=== PATIENT | female | born 1950 | race Caucasian/White ===

== ENCOUNTER → 2016-09-18 | Outpatient (CLI) | payer OTHER ==
[~2016-09-18] MED LIST: ALBINS INH; ASPI81TA28 PO; ATOR-24 PO; CYNI1000 IM; DICL-201 PO; FRRS300 PO; GABA-113 PO; GLIM4TAB PO; HYDR-5688 PO; LEVO1TAB35 PO; LOSA100T33 PO; MCRK/10 PO; METF-384; METF1TAB53 PO; NORT75CA2 PO; NRN/300 PO; NRV/5 PO; PRLSR20 PO; SULF800T23 PO; VLT/75 PO; VTMD1000 PO
--- NOTE | 2016-09-19 13:03 | MAMMOGRAPHY REPORT ---
BILATERAL DIGITAL SCREENING MAMMOGRAM WITH CAD: 09/18/2016 CLINICAL HISTORY: Routine screening. Patient has no complaints. TECHNIQUE: Current study was also evaluated with a Computer Aided Detection (CAD) system. Bilatera l CC and MLO views were obtained. COMPARISON: Comparison is made to exams dated: 09/06/2015 mammogram, 08/31/2014 mammogram, 08/25/2013 ma mmogram, 08/19/2012 mammogram, 08/07/2011 mammogram, and 08/01/2010 mammogram - [facility]. BREAST COMPOSITION: The tissue of both breasts is almost entirely fatty. FINDINGS: No suspicious masses, calcifications, or areas of architectural distortion are noted in e ither breast. There has been no significant interval change compared to prior exams. Scattered bilat eral benign-appearing calcifications are not significantly changed. IMPRESSION: ACR BI-RADS CATEGORY 2: BENIGN There is no mammographic evidence of malignancy. A 1 year screening mammogram is recommended. The p atient will receive written notification of the results. Approximately 10% of breast cancers are not detected with mammography. A negative mammographic repor t should not delay biopsy if a clinically suggestive mass is present. Gail Ortez M.D. ah/:09/19/2016 07:39:02 Outboard Motorboat Operator: Maite KLEIN(R)(M), [facility] letter sent: Normal 1/2 BI-RADS Code: ACR BI-RADS Category 2: Benign
== END | disposition home or self-care (01) ==
LOC: C.MAMM 17:10
PROVIDERS: ATTEND Nurse Practitioner Family
DX: Z12.31 Encounter for screening mammogram for malignant neoplasm of breast (principal)

== ENCOUNTER 2016-09-26 22:18 | Observation (INO) | payer OTHER ==
[~2016-09-26] VITALS: Ht 160 cm; Wt 99.2 kg
[~2016-09-26 22:18] MED LIST changes: -ALBINS INH; -CYNI1000 IM; -FRRS300 PO; -GABA-113 PO; -HYDR-5688 PO; -LEVO1TAB35 PO; -METF-384; -NRV/5 PO; -SULF800T23 PO; -VLT/75 PO
--- NOTE | 2016-09-26 22:44 | EMERGENCY ROOM VISIT NOTE ---
History Report prepared by Tay: Heber Ruby Under the Supervision of: Dr. Tarun Babin D.O. First contact with patient: 22:35 Chief Complaint: SHORTNESS OF BREATH Stated Complaint: SOB Nursing Triage Summary: Pt presents with sob for a couple weeks- month, worse since last night. Worse with exertion. Lightheaded. Cough with green/yellow sputum. History of Present Illness The patient is a 66 year old female who presents to the Emergency Room with complaints of persistent shortness of breath for the past several weeks. The shortness of breath is worse with exertion, including walking short distances. The patient also has a cough and has had increased leg swelling this week. She denies chest pain or tightness. The patient usually sleeps on a recliner, and feels more short of breath when she is leaning back on the recliner. She feels better when she is sitting up. The patient denies any history of CHF or COPD. She does have a history of pneumonia. She denies cardiac history. The patient is not a smoker. Source of History: patient Onset: several weeks ago Position: other (respiratory) Quality: other (shortness of breath) Timing: other (persistent) Modifying Factors (Worsening): exertion, other (leaning back) Modifying Factors (Relieving): other (sitting up) Associated Symptoms: + cough, No chest pain Review of Systems See HPI for pertinent positives and negatives. A total of ten systems were reviewed and were otherwise negative. Past Medical & Surgical Medical Problems: (1) DIAB W NEURO MANIFEST, TYPE II OR UNSPEC TYPE, NOT UNCNTRLD (2) Diabetic peripheral neuropathy associated with type 2 diabetes mellitus (3) SCHMIDT (dyspnea on exertion) (4) Exertional dyspnea (5) Fatty liver (6) HX-VENOUS THROMBOSIS&EMBOLISM (7) Hyperlipidemia (8) HYPERLIPIDEMIA NEC/NOS (9) HYPERTENSION NOS (10) Kidney stone (11) Left arm pain (12) Pneumonia (13) Sleep apnea, obstructive Surgical Problems: (1) History of appendectomy (2) History of herniorrhaphy (3) Previous section Family History Heart disease Social History Smoking Status: Never Smoker Alcohol Use: none Drug Use: none Marital Status: Housing Status: lives with family Occupation Status: employed Current/Historical Medications Scheduled Amlodipine Besylate (Amlodipine Besylate), 5 MG PO DAILY Aspirin (Aspirin Ec), 81 MG PO QAM Atorvastatin (Lipitor), 40 MG PO QAM Cholecalciferol (Vitamin D3), 1,000 UNITS PO QPM Diclofenac Sod (Diclofenac Sodium Dr), 75 MG PO BID Gabapentin (Neurontin), 300 MG PO QPM Gabapentin (Neurontin), 900 MG PO HS Glimepiride (Amaryl), 4 MG PO BID Losartan Potassium & Hydrochlo (Losartan Potassium/Hydroc), 0.5 TABLET PO QAM Metformin Hcl (Glucophage Ext Rel), 1,000 MG PO DAILY Nortriptyline Hcl (Pamelor), 75 MG PO HS Omeprazole (Prilosec), 20 MG PO QAM Potassium Chloride (K-Tabs), 1 TAB PO DAILY Allergies Coded Allergies: Cefuroxime (Verified Adverse Reaction, Mild, upset stomach, 09/26/16) Physical Exam Vital Signs Date Time Temp Pulse Resp B/P Pulse Ox O2 Delivery O2 Flow Rate FiO2 09/27/16 02:41 83 22 97 Nasal Cannula 2.0 09/27/16 02:31 141/81 09/27/16 02:11 88 26 98 Nasal Cannula 2.0 09/27/16 02:06 83 22 97 09/27/16 02:01 123/80 09/27/16 01:36 87 23 97 09/27/16 01:31 131/84 09/27/16 01:12 84 28 98 09/27/16 01:01 128/73 09/27/16 00:42 84 27 95 09/27/16 00:37 86 24 118/70 96 09/26/16 23:24 94 09/26/16 22:44 Nasal Cannula 2.0 09/26/16 22:39 94 Room Air 09/26/16 22:38 99 24 140/67 94 Room Air 09/26/16 22:28 37.1 107 18 159/79 93 Room Air Physical Exam GENERAL: Awake, alert, well-appearing, in no distress HENT: Normocephalic, atraumatic. Oropharynx unremarkable. EYES: Normal conjunctiva. Sclera non-icteric. NECK: Supple. No nuchal rigidity. FROM. No JVD. RESPIRATORY: Crackles in the lungs bilaterally. CARDIAC: Tachycardic, normal rhythm. Extremities warm and well perfused. Pulses equal. ABDOMEN: Soft, non-distended. No tenderness to palpation. No rebound or guarding. No masses. RECTAL: Deferred. MUSCULOSKELETAL: Chest examination reveals no tenderness. The back is symmetrical on inspection without obvious abnormality. There is no CVA tenderness to palpation. No joint edema. LOWER EXTREMITIES: Calves are equal size bilaterally and non-tender. Lower extremity edema noted. No discoloration. NEURO: Normal sensorium. No sensory or motor deficits noted. SKIN: No rash or jaundice noted. Medical Decision & Procedures ER Provider Diagnostic Interpretation: X-ray: Per my interpretation. Chest One View Portable: Negative for infiltrate. CT: Radiology results as stated below per my review and radiologist interpretation CTA CHEST: Comparison 05/17/15. No evidence for PE. Right lung infiltrate. Suggest follow up to resolution. Some of the infiltrate has a nodular configuration. There are some tiny stable nodules, for example in the subpleural right lung through infiltrate is new. Suggest follow up to resolution. Borderline nodes. Small hiatal hernia, suspected hepatic steatosis and other incidentals. Radiologist: Cain Hammond MD. Laboratory Results 09/26/16 22:55 Red Blood Count 3.80, Mean Corpuscular Volume 80.3, Mean Corpuscular Hemoglobin 24.7, Mean Corpuscular Hemoglobin Concent 30.8, Mean Platelet Volume 9.5, Neutrophils (%) (Auto) 66.7, Lymphocytes (%) (Auto) 23.9, Monocytes (%) (Auto) 7.0, Eosinophils (%) (Auto) 1.8, Basophils (%) (Auto) 0.3, Neutrophils # (Auto) 7.61, Lymphocytes # (Auto) 2.73, Monocytes # (Auto) 0.80, Eosinophils # (Auto) 0.20, Basophils # (Auto) 0.03 09/26/16 22:55 Test 09/26/16 22:55 09/26/16 23:02 09/27/16 02:50 White Blood Count 11.40 K/uL (4.8-10.8) Red Blood Count 3.80 M/uL (4.2-5.4) Hemoglobin 9.4 g/dL (12.0-16.0) Hematocrit 30.5 % (37-47) Mean Corpuscular Volume 80.3 fL (80-100) Mean Corpuscular Hemoglobin 24.7 pg (25-34) Mean Corpuscular Hemoglobin Concent 30.8 g/dl (32-36) Platelet Count 323 K/uL (130-400) Mean Platelet Volume 9.5 fL (7.4-10.4) Neutrophils (%) (Auto) 66.7 % Lymphocytes (%) (Auto) 23.9 % Monocytes (%) (Auto) 7.0 % Eosinophils (%) (Auto) 1.8 % Basophils (%) (Auto) 0.3 % Neutrophils # (Auto) 7.61 K/uL (1.4-6.5) Lymphocytes # (Auto) 2.73 K/uL (1.2-3.4) Monocytes # (Auto) 0.80 K/uL (0.11-0.59) Eosinophils # (Auto) 0.20 K/uL (0-0.5) Basophils # (Auto) 0.03 K/uL (0-0.2) RDW Standard Deviation 50.3 fL (36.4-46.3) RDW Coefficient of Variation 17.1 % (11.5-14.5) Immature Granulocyte % (Auto) 0.3 % Immature Granulocyte # (Auto) 0.03 K/uL (0.00-0.02) Nucleated RBC Absolute Count (auto) 0.03 K/uL (0-0) Nucleated Red Blood Cells % 0.2 % Anion Gap 11.0 mmol/L (3-11) Est Creatinine Clear Calc Drug Dose 58.2 ml/min Estimated GFR () 61.4 Estimated GFR (Non- 53.0 BUN/Creatinine Ratio 12.0 (10-20) Calcium Level 8.9 mg/dl (8.5-10.1) Total Bilirubin 0.5 mg/dl (0.2-1) Aspartate Amino Transf (AST/SGOT) 20 U/L (15-37) Alanine Aminotransferase (ALT/SGPT) 29 U/L (12-78) Alkaline Phosphatase 108 U/L (45-117) Total Protein 7.4 gm/dl (6.4-8.2) Albumin 3.1 gm/dl (3.4-5.0) Globulin 4.3 gm/dl (2.5-4.0) Albumin/Globulin Ratio 0.7 (0.9-2) Bedside Troponin I 0.000 ng/ml (0-0.045) ME-Dyu-H-Type Natriuretic Peptide 31 pg/ml (0-900) Urine Color YELLOW Urine Appearance CLEAR (CLEAR) Urine pH 5.5 (4.5-7.5) Urine Specific [place] > 1.045 (1.000-1.030) Urine Protein NEG (NEG) Urine Glucose (UA) NEG (NEG) Urine Ketones NEG (NEG) Urine Occult Blood NEG (NEG) Urine Nitrite NEG (NEG) Urine Bilirubin NEG (NEG) Urine Urobilinogen NEG (NEG) Urine Leukocyte Esterase NEG (NEG) Laboratory results reviewed by me Medications Administered Medications (Trade) Dose Ordered Sig/Juan Route Start Time Stop Time Status Last Admin Dose Admin Levofloxacin (Levaquin / D5W) 750 mg NOW ONCE IV 09/27/16 01:15 09/27/16 01:16 DC 09/27/16 01:13 750 MG ECG Indication: SOB/dyspnea Rate (beats per minute): 97 Rhythm: sinus rhythm Findings: no acute ischemic change, left axis deviation, other (Left anterior hemiblock) ED Course 2238: The patient was evaluated in room C4. A complete history and physical exam was performed. 0115: Levaquin / D5w 750 mg IV. 0115: The [place] [facility] was paged. 0220: The patient is resting comfortably on oxygen, no respiratory distress. 0250: Discussed the case with Dr. Figueroa, [facility]. The patient will be evaluated. Medical Decision Differential diagnosis includes CHF, pneumonia, cardiac ischemia, bronchitis, pulmonary edema, anemia. Consults Time Called: 114 Consulting Physician: Discussed the case with Dr. Figueroa [facility] Returned Call: 0250 Impression Primary Impression: Pneumonia Scribe Attestation The scribe's documentation has been prepared under my direction and personally reviewed by me in its entirety. I confirm that the note above accurately reflects all work, treatment, procedures, and medical decision making performed by me. Departure Information Dispostion Being Evaluated By Hospitalist Referrals Elda Ng (PCP) Patient Instructions My [facility] Problem Qualifiers Primary Impression: Pneumonia Pneumonia type: due to unspecified organism Laterality: right Lung location : lower lobe of lung Qualified Codes: J18.1 - Lobar pneumonia, unspecified organism
[2016-09-26 23:14] LABS: BASO % 0.3 %; BASO ABS # 0.03 K/uL (0-0.2); COMPLETE YES; EOS % 1.8 %; HEMATOCRIT 30.5 % (37-47); IG% 0.3 %; LYMPH % 23.9 %; LYMPH ABS # 2.73 K/uL (1.2-3.4); MEAN CELL VOLUME 80.3 fL (80-100); MEAN CORPUSCULAR HEMOGLOBIN 24.7 pg (25-34); MEAN CORPUSCULAR HGB CONC 30.8 g/dl (32-36); MEAN PLATELET VOLUME 9.5 fL (7.4-10.4); NEUT % 66.7 %; PLATELET COUNT 323 K/uL (130-400)
[2016-09-26] MEDS ORDERED: NRV/5 PO (23:21)
[2016-09-26] MEDS ORDERED: VLT/75 PO (23:23)
[2016-09-26] MEDS ORDERED: METF-384 (23:23)
[2016-09-26] MEDS ORDERED: GABA-113 PO (23:26)
[2016-09-26 23:37] LABS: CALCIUM 8.9 mg/dl (8.5-10.1); CREATININE 1.1 mg/dl (0.60-1.20); POTASSIUM 3.1 mmol/L (3.5-5.1)
[2016-09-26 23:39] LABS: ALB/GLOB RATIO 0.7 (0.9-2)
[2016-09-26] MEDS ORDERED: OPTIRAY 320 IV PRN (23:45)
[2016-09-27] VITALS (9 sets, daily range): BP systolic 122–171; BP diastolic 75–80; PULSE 56–114; TEMP 36.3–36.8; O2SAT 91–97; Ht 160 cm; Wt 99.2 kg
[2016-09-27] MEDS ORDERED: LEVAQUIN 750MG / 150ML D5W IV ONE (01:15)
[2016-09-27 03:09] LABS: URINE APPEARANCE CLEAR (CLEAR); URINE BILIRUBIN NEG (NEG); URINE COLOR YELLOW; URINE NITRITE NEG (NEG); URINE PH 5.5 (4.5-7.5); URINE SPECIFIC GRAVITY > 1.045 (1.000-1.030); UROBILINOGEN NEG (NEG)
[2016-09-27] MEDS ORDERED: ONDANSETRON INJ 2 MG/ML 2 ML VIAL IV PRN (03:15)
[2016-09-27] MEDS ORDERED: ALUMINUM/MAGNESIUM/SIMETH (MAALOX MAX) 30 ML UDC PO PRN (03:15)
[2016-09-27] MEDS ORDERED: ALBUTEROL 0.083% NEBU SOLN 3 ML VIAL INH PRN (03:15)
[2016-09-27] MEDS ORDERED: ACETAMINOPHEN 325 MG TAB PO PRN (03:15)
[2016-09-27] MEDS ORDERED: POLYETHYLENE (MIRALAX) 17 GM PACK PO PRN (03:15)
[2016-09-27] MEDS ORDERED: MAGNESIUM HYDROXIDE SUSP 30 ML UDC PO PRN (03:15)
[2016-09-27 03:16] LABS: MANUAL MICROSCOPIC REQUIRED? NO; REVIEW REQ? NO
--- NOTE | 2016-09-27 03:39 | History and Physical ---
History & Physical Date & Time of Service: Sep 27, 2016 at 03:31 Chief Complaint: SOB Primary Care Physician: Elda Ng History of Present Illness Source: patient 66 y/o F w/Hx DM 2, HTN, HPL, HERIBERTO. She states she has had a productive cough and SOB x 2 weeks which she did not address with her MD. She does not report fevers, CP or N/V. Over the past few days she has developed severe exertional dyspnea and states that she cannot effectively walk a short distance without becoming SOB and having to rest. She had tried using a nebulizer which she had from 05/16 with little effect. She was tachycardic and borderline hypoxic on arrival to the ER. A CT was obtained and revealed a R lung nodular pneumonia. Past Medical/Surgical History Medical Problems: (1) DIAB W NEURO MANIFEST, TYPE II OR UNSPEC TYPE, NOT UNCNTRLD Status: Chronic (2) Diabetic peripheral neuropathy associated with type 2 diabetes mellitus Status: Chronic (3) HX-VENOUS THROMBOSIS&EMBOLISM Status: Resolved (4) Hyperlipidemia Status: Chronic (5) HYPERLIPIDEMIA NEC/NOS Status: Chronic (6) HYPERTENSION NOS Status: Chronic (7) Kidney stone Status: Resolved (8) Sleep apnea, obstructive Status: Chronic Surgical Problems: (1) History of appendectomy Status: Resolved (2) History of herniorrhaphy Status: Resolved (3) Previous section Permanent Comment: X 3 Status: Resolved Family History Heart disease Social History Smoking Status: Never Smoker Drug Use: none Marital Status: Occupational Status: employed Immunizations History of Influenza Vaccine: Yes Influenza Vaccine Date: Mar 11, 2010 History of Tetanus Vaccine?: No History of Pneumococcal: No History of Hepatitis B Vaccine: No Multi-Drug Resistant Organisms History of MDRO: Yes Allergies Coded Allergies: Cefuroxime (Verified Adverse Reaction, Mild, upset stomach, 09/26/16) Home Medications Scheduled Amlodipine Besylate (Amlodipine Besylate), 5 MG PO DAILY Aspirin (Aspirin Ec), 81 MG PO QAM Atorvastatin (Lipitor), 40 MG PO QAM Cholecalciferol (Vitamin D3), 1,000 UNITS PO QPM Diclofenac Sod (Diclofenac Sodium Dr), 75 MG PO BID Gabapentin (Neurontin), 300 MG PO QPM Gabapentin (Neurontin), 900 MG PO HS Glimepiride (Amaryl), 4 MG PO BID Losartan Potassium & Hydrochlo (Losartan Potassium/Hydroc), 0.5 TABLET PO QAM Metformin Hcl (Glucophage Ext Rel), 1,000 MG PO DAILY Nortriptyline Hcl (Pamelor), 75 MG PO HS Omeprazole (Prilosec), 20 MG PO QAM Potassium Chloride (K-Tabs), 1 TAB PO DAILY Review of Systems Constitutional: No chills, No fever, No sweats Eyes: No eye pain, No worsening of vision ENT: No hearing loss, No nasal symptoms, No unusual epistaxis Respiratory: + cough, + dyspnea at rest, + dyspnea on exertion, + shortness of breath, + sputum Cardiovascular: No PND, No chest pain, No orthopnea Abdomen: No nausea, No pain Musculoskeletal: No joint pain Genitourinary - Female: No dysuria, No hematuria, No urinary frequency, No urinary incontinence, No urinary retention, No urinary urgency Neurologic: No memory loss, No paralysis, No weakness Psychiatric: No depression symptoms Endocrine: + fatigue Hematologic / Lymphatic: No abnormal bleeding/bruising Integumentary: No rash Allergic / Immunologic: No environmental allergies Physical Exam Vital Signs Date Time Temp Pulse Resp B/P Pulse Ox O2 Delivery O2 Flow Rate FiO2 09/27/16 02:41 83 22 97 Nasal Cannula 2.0 09/27/16 02:31 141/81 09/27/16 02:11 88 26 98 Nasal Cannula 2.0 09/27/16 02:06 83 22 97 09/27/16 02:01 123/80 09/27/16 01:36 87 23 97 09/27/16 01:31 131/84 09/27/16 01:12 84 28 98 09/27/16 01:01 128/73 09/27/16 00:42 84 27 95 09/27/16 00:37 86 24 118/70 96 09/26/16 23:24 94 09/26/16 22:44 Nasal Cannula 2.0 09/26/16 22:39 94 Room Air 09/26/16 22:38 99 24 140/67 94 Room Air 09/26/16 22:28 37.1 107 18 159/79 93 Room Air General Appearance: WD/WN, no apparent distress Head: normocephalic, atraumatic Eyes: normal inspection, PERRL, EOMI ENT: normal ENT inspection, pharynx normal Neck: supple, + pertinent finding (exam limited by habitus) Respiratory/Chest: chest non-tender, no respiratory distress, no accessory muscle use, + decreased breath sounds Cardiovascular: regular rate, rhythm, no edema, no gallop, no JVD, no murmur, normal peripheral pulses Abdomen/GI: normal bowel sounds, non tender, soft Back: normal inspection, no CVA tenderness Extremities/Musculoskelatal: normal inspection, no calf tenderness, normal capillary refill, no pedal edema, normal range of motion Neurologic/Psych: 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 II-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 nml as tested, no motor/sensory deficits, alert, normal mood/affect, normal reflexes, oriented x 3 Skin: normal color, warm/dry, no rash Diagnostics Laboratory Results Results Past 24 Hours Test 09/26/16 22:55 09/26/16 23:02 09/27/16 02:50 Range/Units White Blood Count 11.40 4.8-10.8 K/uL Red Blood Count 3.80 4.2-5.4 M/uL Hemoglobin 9.4 12.0-16.0 g/dL Hematocrit 30.5 37-47 % Mean Corpuscular Volume 80.3 80-100 fL Mean Corpuscular Hemoglobin 24.7 25-34 pg Mean Corpuscular Hemoglobin Concent 30.8 32-36 g/dl Platelet Count 323 130-400 K/uL Mean Platelet Volume 9.5 7.4-10.4 fL Neutrophils (%) (Auto) 66.7 % Lymphocytes (%) (Auto) 23.9 % Monocytes (%) (Auto) 7.0 % Eosinophils (%) (Auto) 1.8 % Basophils (%) (Auto) 0.3 % Neutrophils # (Auto) 7.61 1.4-6.5 K/uL Lymphocytes # (Auto) 2.73 1.2-3.4 K/uL Monocytes # (Auto) 0.80 0.11-0.59 K/uL Eosinophils # (Auto) 0.20 0-0.5 K/uL Basophils # (Auto) 0.03 0-0.2 K/uL RDW Standard Deviation 50.3 36.4-46.3 fL RDW Coefficient of Variation 17.1 11.5-14.5 % Immature Granulocyte % (Auto) 0.3 % Immature Granulocyte # (Auto) 0.03 0.00-0.02 K/uL Nucleated RBC Absolute Count (auto) 0.03 0-0 K/uL Nucleated Red Blood Cells % 0.2 % Sodium Level 140 136-145 mmol/L Potassium Level 3.1 3.5-5.1 mmol/L Chloride Level 102 98-107 mmol/L Carbon Dioxide Level 27 21-32 mmol/L Anion Gap 11.0 3-11 mmol/L Blood Urea Nitrogen 13 7-18 mg/dl Creatinine 1.10 0.60-1.20 mg/dl Est Creatinine Clear Calc Drug Dose 58.2 ml/min Estimated GFR () 61.4 Estimated GFR (Non- 53.0 BUN/Creatinine Ratio 12.0 10-20 Random Glucose 188 70-99 mg/dl Calcium Level 8.9 8.5-10.1 mg/dl Total Bilirubin 0.5 0.2-1 mg/dl Aspartate Amino Transf (AST/SGOT) 20 15-37 U/L Alanine Aminotransferase (ALT/SGPT) 29 12-78 U/L Alkaline Phosphatase 108 45-117 U/L Total Protein 7.4 6.4-8.2 gm/dl Albumin 3.1 3.4-5.0 gm/dl Globulin 4.3 2.5-4.0 gm/dl Albumin/Globulin Ratio 0.7 0.9-2 Bedside Troponin I 0.000 0-0.045 ng/ml ZT-Rjo-W-Type Natriuretic Peptide 31 0-900 pg/ml Urine Color YELLOW Urine Appearance CLEAR CLEAR Urine pH 5.5 4.5-7.5 Urine Specific [place] > 1.045 1.000-1.030 Urine Protein NEG NEG Urine Glucose (UA) NEG NEG Urine Ketones NEG NEG Urine Occult Blood NEG NEG Urine Nitrite NEG NEG Urine Bilirubin NEG NEG Urine Urobilinogen NEG NEG Urine Leukocyte Esterase NEG NEG Diagnostic Radiology CT: R lung nodular infiltrate EKG Sinus - L axis, LAFB - no acute ischemic changes Impression Assessment and Plan 66 y/o F w/Hx DM 2, HTN, HPL, HERIBERTO. She states she has had a productive cough and SOB x 2 weeks which she did not address with her MD. She does not report fevers, CP or N/V. Over the past few days she has developed severe exertional dyspnea and states that she cannot effectively walk a short distance without becoming SOB and having to rest. She had tried using a nebulizer which she had from 05/16 with little effect. She was tachycardic and borderline hypoxic on arrival to the ER. A CT was obtained and revealed a R lung nodular pneumonia. 1) PNM - pt will be treated with latasha Shane, 02 protocol. She does not quite meet admission criteria so that she could potentially be D/Cd later in the day if she improves clinically. 2) Severe exertional dyspnea - the pt was under the impression that there might be something wrong with her heart - her dyspnea is out of proportion to clinical findings and she has a normal PFT on record. We will request an echo. I do not believe she is exhibiting volume overload but she may have a degree of pulmonary hypertension as she has a long standing history of HERIBERTO and does not comply with BIPAP. 3) DM - placed on sliding scale 4) HypoK - replaced - HCTZ held pending repeat labs 5) HTN - cont Lisinopril 6) HLD - cont Statin Full code - heparin prophylaxis Tital time for this admit including review of labs, med, EKG, imaging - discussion with pt and ER MD - 38 min Level of Care Telemetry Resuscitation Status FULL RESUSCITATION VTE Prophylaxis VTE Risk Assessment Done? Y/N: Yes Risk Level: Moderate Given or contraindicated: Unfractionated heparin SQ
[2016-09-27] MEDS ORDERED: IV FLUIDS COMPLETED PRN (04:45)
[2016-09-27] MEDS ORDERED: MAGNESIUM SULFATE 1GM / D5W 1 GM in PREMIXED IN D5W 100 ML IV ONE (06:00)
[2016-09-27] MEDS ORDERED: POTASSIUM CHLORIDE PWD 20 MEQ PACK PO ONE (07:30)
[2016-09-27] MEDS: INSULIN ASPART 100 UNITS/ML 3 ML PEN SC SCH ×4 (07:30→21:00)
--- NOTE | 2016-09-27 07:37 | DIAGNOSTIC IMAGING REPORT ---
CHEST CTA for PULMONARY ARTERIES CT DOSE: 678.68 mGy.cm HISTORY: Short of breath. TECHNIQUE: Multiaxial CT images of the chest were performed following the intravenous administration of contrast to evaluate the pulmonary arteries. Maximal intensity projection images were also obtained. COMPARISON STUDY: Chest CTA 05/17/2015. FINDINGS: There is a normal caliber thoracic aorta with no evidence for dissection. There is no evidence for pulmonary embolus. No pleural effusions. No pneumothorax. The liver and spleen are unremarkable. Mediastinal lymph nodes have decreased in size. No left hilar lymphadenopathy. A few prominent right hilar lymph nodes which may be reactive. Hepatic steatosis. The spleen and adrenal glands are unremarkable. Patchy airspace opacity seen within the right upper lobe, right middle lobe, and right lower lobe which likely represent a pneumonia. IMPRESSION: 1. No evidence for pulmonary embolus. 2. Right lung airspace opacities which likely represent a pneumonia. Recommend follow-up to ensure resolution. Electronically signed by: Oc Rosas M.D. 09/27/2016 7:36 AM Dictated Date/Time: 09/27/2016 7:31 AM
--- NOTE | 2016-09-27 08:08 | DIAGNOSTIC IMAGING REPORT ---
CHEST ONE VIEW PORTABLE HISTORY: Short of breath. COMPARISON: None. FINDINGS: Patchy airspace opacities within the right mid to lower lung zone. Cardiac silhouette is normal in size. No pleural effusions. No pneumothorax. Low lung volumes. IMPRESSION: Patchy airspace opacities within the right mid to lower lung zone which likely represents a pneumonia. Recommend follow-up to resolution. Electronically signed by: Oc Rosas M.D. 09/27/2016 8:07 AM Dictated Date/Time: 09/27/2016 8:06 AM
[2016-09-27] MEDS: ALBUT/IPRATROP 3MG/0.5MG NEB 3 ML VIAL INH SCH ×3 (08:15→19:41)
[2016-09-27] MEDS: LOSARTAN POTASSIUM 25 MG TAB PO SCH (08:51)
[2016-09-27] MEDS: ASPIRIN 81 MG ECTAB PO SCH (08:51)
[2016-09-27] MEDS: AMLODIPINE BESYLATE 5 MG TAB PO SCH (08:52)
[2016-09-27] MEDS: PANTOprazole SOD 40 MG TAB PO SCH (08:52)
[2016-09-27] MEDS: ATORVASTATIN 40 MG TAB PO SCH (08:52)
[2016-09-27 09:09] LABS: INR 1.1 (0.9-1.1); PROTHROMBIN TIME (PATIENT) 11.9 SECONDS (9.0-12.0)
[2016-09-27] MEDS ORDERED: PERFLUTREN LIPID MICROSPHERE (DEFINITY) IV ONE (10:01)
[2016-09-27 10:54] LABS: BASO % 0.3 %; BASO ABS # 0.03 K/uL (0-0.2); COMPLETE YES; HEMATOCRIT 30.7 % (37-47); IG% 0.3 %; LYMPH % 21.9 %; LYMPH ABS # 2.01 K/uL (1.2-3.4); MEAN CELL VOLUME 80.4 fL (80-100); MEAN CORPUSCULAR HEMOGLOBIN 24.9 pg (25-34); MEAN CORPUSCULAR HGB CONC 30.9 g/dl (32-36); MEAN PLATELET VOLUME 9.2 fL (7.4-10.4); MONO % 6.8 %; NEUT % 68.7 %; PLATELET COUNT 309 K/uL (130-400); RED BLOOD COUNT 3.82 M/uL (4.2-5.4); WHITE BLOOD COUNT 9.18 K/uL (4.8-10.8)
[2016-09-27 11:23] LABS: BUN/CREATININE RATIO 11.4 (10-20); CREATININE 0.95 mg/dl (0.60-1.20); MAGNESIUM 1.8 mg/dl (1.8-2.4); POTASSIUM 3.4 mmol/L (3.5-5.1)
[2016-09-27 11:26] LABS: CALCIUM 9.3 mg/dl (8.5-10.1)
[2016-09-27 11:33] LABS: FERRITIN 20.9 ng/ml (8.0-388.0); THYROID STIMULATING HORMONE 3.94 uIu/ml (0.300-4.500)
--- NOTE | 2016-09-27 13:35 | ECHOCARDIOGRAM REPORT ---
*NOTICE TO RECEIVING [employer] This information is strictly Confidential and protected under [place] law. [place] law prohibits you from making any further disclosure of this information unless further disclosure is expressly permitted by the written consent of the person to whom it pertains or is authorized by law. A general authorization for the release of medical or other information is not sufficient for this purpose. Hospital accepts no responsibility if the information is made available to any other person, INCLUDING THE PATIENT. Interpretation Summary * Name: BRISEYDA PORTILLO Study Date: 09/27/2016 08:39 AM BP: 171/80 mmHg * Patient Location: .MS2W\S\W255\S\2 HR: 88 * : 1950 (M/d/yyyy) Gender: Female Height: 63 in * Age: 66 yrs Ethnicity: CA Weight: 219 lb * Ordering Physician: Contreras Figueroa * Referring Physician: Self, Referred * Performed By: Naila Manzo RCS * * Reason For Study: Severe Exertional Dyspnea * BSA: 2.0 m2 * -- Conclusions -- * Left ventricular systolic function is normal. * Grade I diastolic dysfunction, (abnormal relaxation pattern). * The right ventricular systolic function is normal as assessed by tricuspid annular plane systolic excursion (TAPSE) (normal >1.5 cm). Procedure Details * A complete two-dimensional transthoracic echocardiogram was performed (2D, M-mode, Doppler and color flow Doppler). * A contrast injection of Definity was performed to improve assessment of LV function. * Contrast was injected into an intravenous site in the right arm. * One vial of Definity ultrasound contrast was diluted in normal saline to a total volume of 10 ml. A total of '2' ml of solution was administered during imaging. * Lot # [id number] of Definity utilized for procedure. * Expiration date 1APR18. * The attending nurse who injected the contrast agent was Jaz Marquez RN. Left Ventricle * The left ventricle is normal in size. * There is normal left ventricular wall thickness. * Ejection Fraction = 65-70%. * Left ventricular systolic function is normal. * Grade I diastolic dysfunction, (abnormal relaxation pattern). Right Ventricle * The right ventricle is grossly normal size. * The right ventricular systolic function is normal as assessed by tricuspid annular plane systolic excursion (TAPSE) (normal >1.5 cm). Atria * The left atrial size is normal. * Right atrial size is normal. Mitral Valve * The mitral valve is grossly normal. * Significant mitral regurgitation is absent. Tricuspid Valve * The tricuspid valve is not well visualized. Aortic Valve * The aortic valve is not well visualized. * There is calcification of the left or possibly non-coronary cusp whcih is unchanged from 2015 * No hemodynamically significant valvular aortic stenosis. * There is no significant aortic regurgitation. Great Vessels * The aortic root is normal size. Pericardium/Pleural * There is no pericardial effusion. MMode 2D Measurements and Calculations IVSd 1.0 cm IVSs 1.2 cm LVIDd 4.0 cm LVIDs 2.3 cm LVPWd 1.0 cm LVPWs 1.2 cm IVS/LVPW 0.98 FS 43.3 % EDV(Teich) 71.7 ml ESV(Teich) 17.9 ml EF(Teich) 75.0 % EDV(cubed) 66.0 ml ESV(cubed) 12.0 ml EF(cubed) 81.8 % % IVS thick 21.8 % % LVPW thick 14.5 % LV mass(C)d 134.9 grams LV mass(C)dI 67.1 grams/m\S\2 LV mass(C)s 78.5 grams LV mass(C)sI 39.0 grams/m\S\2 CO(Teich) 4.6 l/min CI(Teich) 2.3 l/min/m\S\2 SV(Teich) 53.8 ml SI(Teich) 26.8 ml/m\S\2 CO(cubed) 4.6 l/min CI(cubed) 2.3 l/min/m\S\2 SV(cubed) 54.0 ml SI(cubed) 26.9 ml/m\S\2 Ao root diam 3.5 cm Ao root area 9.7 cm\S\2 ACS 1.9 cm LA dimension 3.8 cm LA/Ao 1.1 LVAd ap4 30.5 cm\S\2 LVLd ap4 8.3 cm EDV(MOD-sp4) 93.0 ml LVAs ap4 14.2 cm\S\2 LVLs ap4 6.6 cm ESV(MOD-sp4) 26.0 ml EF(MOD-sp4) 72.0 % LVAd ap2 23.7 cm\S\2 LVLd ap2 8.0 cm EDV(MOD-sp2) 60.0 ml LVAs ap2 12.1 cm\S\2 LVLs ap2 6.4 cm ESV(MOD-sp2) 20.0 ml EF(MOD-sp2) 66.7 % CO(MOD-sp4) 5.8 l/min CI(MOD-sp4) 2.9 l/min/m\S\2 SV(MOD-sp4) 67.0 ml SI(MOD-sp4) 33.3 ml/m\S\2 CO(MOD-sp2) 3.4 l/min CI(MOD-sp2) 1.7 l/min/m\S\2 SV(MOD-sp2) 40.0 ml SI(MOD-sp2) 19.9 ml/m\S\2 Doppler Measurements and Calculations MV E max lance 92.3 cm/sec MV A max lance 101.7 cm/sec MV E/A 0.91 MV P1/2t max lance 90.2 cm/sec MV P1/2t 80.3 msec MVA(P1/2t) 2.7 cm\S\2 MV dec slope 329.3 cm/sec\S\2 MV dec time 0.27 sec Ao V2 max 179.8 cm/sec Ao max PG 12.9 mmHg Ao max PG (full) 5.1 mmHg LV V1 max PG 7.8 mmHg LV V1 max 139.8 cm/sec PA V2 max 114.0 cm/sec PA max PG 5.2 mmHg
[2016-09-27] MEDS: HEPARIN SOD 5000 UNIT/0.5 ML CARP SQ SCH ×2 (14:00→21:27)
[2016-09-27] MEDS ORDERED: POTASSIUM CHLORIDE 20 MEQ TABCR PO STA (15:15)
[2016-09-27] MEDS ORDERED: CYANOCOBALAMIN 1000 MCG/ML VIAL IM ONE (18:00)
[2016-09-27] MEDS ORDERED: GABAPENTIN 300 MG CAP PO SCH (21:00)
[2016-09-27] MEDS: GABAPENTIN 300 MG CAP PO SCH (21:24)
[2016-09-27] MEDS: NORTRIPTYLINE HCL 25 MG CAP PO SCH (21:27)
--- NOTE | 2016-09-27 22:38 | Progress Note ---
Progress Note Date of Service Sep 27, 2016. Progress Note Pt admitted after midnight. Record and studies reviewed, pt seen and examined. She is already feeling much better. ECHO with grade 1 diastolic dysfunction. She is off O2 and ambulates witout O2 and POx goes to 94%. She declines any kind of CPAP but is willing to wear nocturnal O2 for her known HERIBERTO. B12 and Fe-deficient with new anemia. She is due for colonoscopy, was supposed to go this Fall. Hemoccult stool pending. No GERD sxs, no abd pain, no hematochezia, does have occasional dark stools. Potassium replaced. VSS Lungs with crackles and rhonchi in entire right lung field with wheezes as well. -continue bronchodilators, IV Levaquin -hemoccult stool and follow CBC -follow PRP and replaced KCl -continue homw meds for BP except holding HCTZ for hypokalemia -continue insulin SS for DM Heparin SQ for DVT proph Dispo-to home likely tomorrow
[2016-09-28] VITALS (10 sets, daily range): BP systolic 111–117; BP diastolic 67–76; PULSE 76–90; TEMP 36.5–36.7; O2SAT 93–97
[2016-09-28] MEDS ORDERED: LEVOFLOXACIN / D5W 750 MG in PREMIXED IN D5W 150 ML IV SCH (02:00)
[2016-09-28] MEDS: ALBUT/IPRATROP 3MG/0.5MG NEB 3 ML VIAL INH SCH ×3 (02:21→19:49)
[2016-09-28] MEDS: HEPARIN SOD 5000 UNIT/0.5 ML CARP SQ SCH ×2 (06:00→13:38)
[2016-09-28] MEDS: INSULIN ASPART 100 UNITS/ML 3 ML PEN SC SCH ×4 (06:30→20:09)
[2016-09-28 07:28] LABS: BASO % 0.5 %; BASO ABS # 0.04 K/uL (0-0.2); COMPLETE YES; EOS % 3.4 %; HEMATOCRIT 31.5 % (37-47); IG% 0.4 %; LYMPH % 34.5 %; LYMPH ABS # 2.55 K/uL (1.2-3.4); MEAN CORPUSCULAR HEMOGLOBIN 24.9 pg (25-34); MEAN CORPUSCULAR HGB CONC 30.8 g/dl (32-36); MEAN PLATELET VOLUME 9.2 fL (7.4-10.4); MONO % 8.7 %; NEUT % 52.5 %; PLATELET COUNT 328 K/uL (130-400); RED BLOOD COUNT 3.89 M/uL (4.2-5.4); WHITE BLOOD COUNT 7.39 K/uL (4.8-10.8)
[2016-09-28 08:00] LABS: ALT/SGPT 26 U/L (12-78); AST/SGOT 17 U/L (15-37); BLOOD UREA NITROGEN 14 mg/dl (7-18); BUN/CREATININE RATIO 15.4 (10-20); CALCIUM 9.2 mg/dl (8.5-10.1); CARBON DIOXIDE 29 mmol/L (21-32); CHLORIDE 104 mmol/L (98-107); CREATININE 0.89 mg/dl (0.60-1.20); GLUCOSE 161 mg/dl (70-99); MAGNESIUM 1.9 mg/dl (1.8-2.4); POTASSIUM 3.7 mmol/L (3.5-5.1); SODIUM 142 mmol/L (136-145)
[2016-09-28 08:03] LABS: ALKALINE PHOSPHATASE 101 U/L (45-117)
[2016-09-28] MEDS: LOSARTAN POTASSIUM 25 MG TAB PO SCH (08:04)
[2016-09-28] MEDS: ATORVASTATIN 40 MG TAB PO SCH (08:05)
[2016-09-28] MEDS: ASPIRIN 81 MG ECTAB PO SCH (08:05)
[2016-09-28] MEDS: AMLODIPINE BESYLATE 5 MG TAB PO SCH (08:06)
[2016-09-28] MEDS: PANTOprazole SOD 40 MG TAB PO SCH (08:06)
[2016-09-28] MEDS ORDERED: POTASSIUM CHLORIDE 10 MEQ TABCR PO SCH (09:00)
[2016-09-28] MEDS ORDERED: CYANOCOBALAMIN 1000 MCG/ML VIAL IM SCH (09:00)
[2016-09-28] MEDS ORDERED: GABAPENTIN 300 MG CAP PO SCH (17:00)
[2016-09-28] MEDS ORDERED: FRRS300 PO (20:01)
[2016-09-28] MEDS ORDERED: ALBINS INH (20:01)
[2016-09-28] MEDS ORDERED: CYNI1000 IM (20:01)
[2016-09-28] MEDS ORDERED: LEVO1TAB35 PO (20:01)
[2016-09-28] MEDS: GABAPENTIN 300 MG CAP PO SCH (20:02)
[2016-09-28] MEDS: NORTRIPTYLINE HCL 25 MG CAP PO SCH (20:03)
--- NOTE | 2016-09-28 20:05 | Discharge Instructions ---
Discharge Instructions Date of Service Sep 28, 2016. Admission Reason for Admission: Exertional Dyspnea, Pneumonia Discharge Discharge Diagnosis / Problem: Pneumonia Discharge Goals Goal(s): Improve disease control, Therapeutic intervention Activity Recommendations Activity Limitations: as noted below Exercise/Sports Limitations: gradually increase as tolerated Shower/Bathe: no limitations Driving or Machine Use: no limitations . Instructions / Follow-Up Instructions / Follow-Up You were admitted for a right sided pneumonia. You were treated with IV antibiotics and had improvement. You should finish out a course of oral antibiotics and follow up with your PCP within 1 week. You will need a repeat chest xray in 3-4 weeks to ensure your pneumonia is completely cleared up. You were also found to be both B12 and iron deficient which is causing you to be anemic. You should get B12 injections through your PCP office and start taking oral iron tablets. You should see a [employer] Super[employer] to possibly have an upper and lower endoscopy to look for a cause of your anemia. Current Hospital Diet Patient's current hospital diet: AHA Diet (Heart Healthy), Diabetes Type 2 Diet Discharge Diet Recommended Diet: AHA Diet (Heart Healthy), Diabetes Type 2 Diet Procedures Procedures Performed: Chest xray Chest CT Pending Studies Studies pending at discharge: no Laboratory Results Last 24 Hours Test 09/27/16 20:41 09/28/16 07:00 Bedside Glucose 145 mg/dl White Blood Count 7.39 K/uL Red Blood Count 3.89 M/uL Hemoglobin 9.7 g/dL Hematocrit 31.5 % Mean Corpuscular Volume 81.0 fL Mean Corpuscular Hemoglobin 24.9 pg Mean Corpuscular Hemoglobin Concent 30.8 g/dl Platelet Count 328 K/uL Mean Platelet Volume 9.2 fL Neutrophils (%) (Auto) 52.5 % Lymphocytes (%) (Auto) 34.5 % Monocytes (%) (Auto) 8.7 % Eosinophils (%) (Auto) 3.4 % Basophils (%) (Auto) 0.5 % Neutrophils # (Auto) 3.88 K/uL Lymphocytes # (Auto) 2.55 K/uL Monocytes # (Auto) 0.64 K/uL Eosinophils # (Auto) 0.25 K/uL Basophils # (Auto) 0.04 K/uL RDW Standard Deviation 51.3 fL RDW Coefficient of Variation 17.2 % Immature Granulocyte % (Auto) 0.4 % Immature Granulocyte # (Auto) 0.03 K/uL Sodium Level 142 mmol/L Potassium Level 3.7 mmol/L Chloride Level 104 mmol/L Carbon Dioxide Level 29 mmol/L Anion Gap 9.0 mmol/L Blood Urea Nitrogen 14 mg/dl Creatinine 0.89 mg/dl Est Creatinine Clear Calc Drug Dose 71.7 ml/min Estimated GFR () 79.4 Estimated GFR (Non- 68.5 BUN/Creatinine Ratio 15.4 Random Glucose 161 mg/dl Calcium Level 9.2 mg/dl Magnesium Level 1.9 mg/dl Total Bilirubin 0.4 mg/dl Direct Bilirubin < 0.1 mg/dl Aspartate Amino Transf (AST/SGOT) 17 U/L Alanine Aminotransferase (ALT/SGPT) 26 U/L Alkaline Phosphatase 101 U/L Total Protein 7.4 gm/dl Albumin 2.9 gm/dl Medical Emergencies . Who to Call and When: Medical Emergencies: If at any time you feel your situation is an emergency, please call 911 immediately. . Non-Emergent Contact Non-Emergency issues call your: Primary Care Provider Call Non-Emergent contact if: you have a fever, you have any medication questions if you have worsening shortness of breath or cough . . "Provider Documentation" section prepared by Jessica Leonard. . VTE Core Measure Inpt VTE Proph given/why not?: Unfractionated heparin SQ
--- NOTE | 2016-10-17 13:07 | Discharge Summary ---
Discharge Summary Date of Service Sep 28, 2016. Discharge Summary Admission Date: Sep 27, 2016 at 03:24 Discharge Date: Sep 28, 2016 Discharge Disposition: Home Principal Diagnosis: Community Acquired Pneumonia Problems/Secondary Diagnoses: Acute respiratory insufficiency DM type 2 HTN HL HERIBERTO Hypokalemia Chronic diastolic dysfunction B12 deficiency Fe-deficiency anemia Immunizations: Have You Had Influenza Vaccine: Yes Influenza Vaccine Date: Mar 11, 2010 History of Tetanus Vaccine?: No History of Pneumococcal: No History of Hepatitis B Vaccine: No Procedures: CHEST CTA for PULMONARY ARTERIES CT DOSE: 678.68 mGy.cm HISTORY: Short of breath. TECHNIQUE: Multiaxial CT images of the chest were performed following the intravenous administration of contrast to evaluate the pulmonary arteries. Maximal intensity projection images were also obtained. COMPARISON STUDY: Chest CTA 05/17/2015. FINDINGS: There is a normal caliber thoracic aorta with no evidence for dissection. There is no evidence for pulmonary embolus. No pleural effusions. No pneumothorax. The liver and spleen are unremarkable. Mediastinal lymph nodes have decreased in size. No left hilar lymphadenopathy. A few prominent right hilar lymph nodes which may be reactive. Hepatic steatosis. The spleen and adrenal glands are unremarkable. Patchy airspace opacity seen within the right upper lobe, right middle lobe, and right lower lobe which likely represent a pneumonia. IMPRESSION: 1. No evidence for pulmonary embolus. 2. Right lung airspace opacities which likely represent a pneumonia. Recommend follow-up to ensure resolution. CHEST ONE VIEW PORTABLE HISTORY: Short of breath. COMPARISON: None. FINDINGS: Patchy airspace opacities within the right mid to lower lung zone. Cardiac silhouette is normal in size. No pleural effusions. No pneumothorax. Low lung volumes. IMPRESSION: Patchy airspace opacities within the right mid to lower lung zone which likely represents a pneumonia. Recommend follow-up to resolution. ECHO: * Left ventricular systolic function is normal. * Grade I diastolic dysfunction, (abnormal relaxation pattern). * The right ventricular systolic function is normal as assessed by tricuspid annular plane systolic excursion (TAPSE) (normal >1.5 cm). Consultations: None Medication Reconciliation New Medications: Ferrous Sulfate (Ferrous Sulfate) 325 Mg Tab 325 MG PO BID for 30 Days Albuterol Sulf (Albuterol Sulfate) 2.5 Mg/3 Ml Nebu 2.5 MG INH Q4H PRN for sob for 30 Days Cyanocobalamin (Cyanocobalamin) 1,000 Mcg/Ml Inj 1000 MCG IM qmonth, #12 To be administered by your PCP Continued Medications: Amlodipine Besylate (Amlodipine Besylate) 5 Mg Tab 5 MG PO DAILY Aspirin (Aspirin Ec) 81 Mg Tab 81 MG PO QAM Atorvastatin (Lipitor) 40 Mg Tab 40 MG PO QAM, TAB Cholecalciferol (Vitamin D3) 1,000 Inter.unit Tab 1000 UNITS PO QPM Diclofenac Sod (Diclofenac Sodium Dr) 75 Mg Tabcr 75 MG PO BID TAKE WITH FOOD Gabapentin (Neurontin) 300 Mg Cap 300 MG PO QPM Gabapentin (Neurontin) 300 Mg Cap 900 MG PO HS Glimepiride (Amaryl) 4 Mg Tab 4 MG PO BID, TAB Losartan Potassium & Hydrochlo (Losartan Potassium/Hydroc) 1 Tab Tab 0.5 TABLET PO QAM 100MG/25MG Metformin Hcl (Glucophage Ext Rel) 1,000 Mg Tab 1000 MG PO DAILY, 1 Refill Nortriptyline Hcl (Pamelor) 75 Mg Cap 75 MG PO HS, CAP Omeprazole (Prilosec) 20 Mg Capcr 20 MG PO QAM Potassium Chloride (K-Tabs) 10 Meq Tabcr 1 TAB PO DAILY Referrals At Discharge Follow up Referrals: Physician Referral - Within 1 Week with Elda Ng Discharge Exam Doing much better, ready for discharge to home Review of Systems: Constitutional: No fever Eyes: No problem reported ENT: No problem reported Respiratory: + cough, No dyspnea on exertion, No shortness of breath Cardiovascular: No chest pain Abdomen: No nausea, No pain, No vomiting Musculoskeletal: No problem reported Genitourinary - Female: No problem reported Neurologic: No problem reported Psychiatric: No problem reported Endocrine: No problem reported Hematologic / Lymphatic: No problem reported Integumentary: No problem reported Physical Exam: General Appearance: WD/WN, no apparent distress, + obese Eyes: normal inspection, sclerae normal ENT: hearing grossly normal, pharynx normal Neck: trachea midline Respiratory/Chest: no respiratory distress, no accessory muscle use, + rhonchi (right lower and middle lung villanueva along with a few scattered exp wheezes) Cardiovascular: regular rate, rhythm, no edema, no gallop, no murmur, normal peripheral pulses Abdomen / GI: normal bowel sounds, non tender, soft, no organomegaly, no pulsatile mass Extremities: normal inspection, no calf tenderness, no pedal edema Neurologic/Psychiatric: alert, normal mood/affect, oriented x 3 Skin: normal color, warm/dry, no rash Lymphatic: no adenopathy Hospital Course 66 y/o F w/Hx DM 2, HTN, HPL, HERIBERTO. She states she has had a productive cough and SOB x 2 weeks which she did not address with her MD. She does not report fevers, CP or N/V. Over the past few days she has developed severe exertional dyspnea and states that she cannot effectively walk a short distance without becoming SOB and having to rest. She had tried using a nebulizer which she had from 05/16 with little effect. She was tachycardic and borderline hypoxic on arrival to the ER. A CT was obtained and revealed a R lung nodular pneumonia. 1) CAP - pt was treated with Levaquin, nebs, 02 and weaned off. She was doing much better by the next day and was stable for discharge to home. -finish out 10 day course of Levaquin po -continue albuterol prn at home -will need repeat Chest CT or CXR in 3-4 weeks to ensure resolution of PNA 2) Severe exertional dyspnea - the pt was under the impression that there might be something wrong with her heart - her dyspnea is out of proportion to clinical findings and she has a normal PFT on record. ECHO showed grade 1 diastolic dysfunction/Chronic diastolic CHF. She was not volume overloaded and so I believe her SCHMIDT was secondary to her PNA. Compliance with her home CPAP was strongly encouraged to prevent worsening diastolic dysfunction. 3) DMII - glucose checks here ranged from 90s-180s with one high of 217 likely secondary to stress of illness -placed on sliding scale insulin and can restart metformin at home in 24 hours as had dye load with CTA chest -f/u with PCP -restart glimepiride on dc as well 4) HypoK - replaced - HCTZ held, repeat labs normalized -consider stopping HCTZ as an outpatient if persists -continue po replacement as outpatient 5) HTN -stable -continue losartan-HCT, amlodipine 6) HLD - cont Statin 7) HERIBERTO-not compliant with CPAP here or at home- but is willing to wear nocturnal O2 for her known HERIBERTO. -f/u with PCP and explore other options for managing HERIBERTO 8) B12 and Fe-deficient with new anemia. She is due for colonoscopy, was supposed to go this Fall but this should be moved up due to anemia. Hemoccult stool pending and was not collected during hospitalization as she did not have a BM. No GERD sxs, no abd pain, no hematochezia, does have occasional dark stools. -f/u with PCP and get referral to GI for EGD/Colonoscopy if Hemeoccult positive -continue monthly B12 injections Full code - heparin prophylaxis Dispo-to home and f/u with PCP in 1 week Total Time Spent: Greater than 30 minutes This includes examination of the patient, discharge planning, medication reconciliation, and communication with other providers. Discharge Instructions Please refer to the electronic Patient Visit Report (Discharge Instructions) for additional information. Follow-Up WithPCP within 1 week Will need CXR in 3-4 weeks to ensure resolution of infiltrates Additional Copies To Elda Ng
[2017-03-21] MEDS ORDERED: HYDR-5688 PO (09:33)
[2017-03-24] MEDS ORDERED: SULF800T23 PO (13:29)
== END 2016-09-28 20:30 | disposition home or self-care (01) ==
LOC: ENRESERVDT → ENRESERVTM → C.EDB 22:19 → C.MS2W 09-27 03:24
PROVIDERS: ADMIT Internal Medicine; ATTEND Hospitalist
DX: J18.9 Pneumonia, unspecified organism (principal); E87.6 Hypokalemia; I10 Essential (primary) hypertension; G47.33 Obstructive sleep apnea (adult) (pediatric); E11.40 Type 2 diabetes mellitus with diabetic neuropathy, unspecified; E78.5 Hyperlipidemia, unspecified; R00.0 Tachycardia, unspecified; Z79.82 Long term (current) use of aspirin; Z86.718 Personal history of other venous thrombosis and embolism; Z87.442 Personal history of urinary calculi; Z90.49 Acquired absence of other specified parts of digestive tract; Z82.49 Family history of ischemic heart disease and other diseases of the circulatory system

== ENCOUNTER 2017-05-14 22:06 | Emergency (ER) | payer OTHER, MEDICARE ==
[~2017-05-14] VITALS: Ht 160 cm; Wt 92.8 kg
[~2017-05-14 22:06] MED LIST changes: +ALBINS INH; -DICL-201 PO; +GABA-113 PO; +HYDR-5688 PO; -NRN/300 PO; +NRV/5 PO; +VLT/75 PO
[2017-05-14 22:08] VITALS: TEMP 37.3; Ht 160 cm; Wt 92.8 kg
[2017-05-14] MEDS ORDERED: KETOROLAC TROMETHAMINE 30 MG/ML VIAL IV STA (22:24)
[2017-05-14] MEDS ORDERED: SODIUM CHLORIDE 0.9% 1000ML 1,000 ML IV STA (22:24)
[2017-05-14 22:36] VITALS: O2SAT 95
--- NOTE | 2017-05-14 23:03 | DIAGNOSTIC IMAGING REPORT ---
CHEST ONE VIEW PORTABLE HISTORY: 67 years-old Female EVALUATE RESPIRATORY DISTRESS.DYSPNEA acute respiratory distress COMPARISON: Portable chest radiograph 09/26/2016 TECHNIQUE: Portable AP view of the chest FINDINGS: Cardiac silhouette is mildly enlarged. Lungs are mildly hypoinflated with bronchovascular crowding. No pneumothorax, pleural effusion or overt pulmonary edema. Hazy subsegmental bibasilar opacities are present. The bones appear grossly intact. Degenerative changes of the shoulders and spine. IMPRESSION: 1. Hazy subsegmental bibasilar opacities suggest atelectasis. 2. Hypoinflation. The above report was generated using voice recognition software. It may contain grammatical, syntax or spelling errors. Electronically signed by: Brian Parrish M.D. 05/14/2017 11:01 PM Dictated Date/Time: 05/14/2017 10:59 PM
[2017-05-14 23:08] LABS: BASO % 0.5 %; BASO ABS # 0.04 K/uL (0-0.2); COMPLETE YES; EOS % 1.5 %; HEMATOCRIT 34.3 % (37-47); IG% 0.2 %; LYMPH % 15.3 %; LYMPH ABS # 1.35 K/uL (1.2-3.4); MEAN CELL VOLUME 76.9 fL (80-100); MEAN CORPUSCULAR HEMOGLOBIN 23.8 pg (25-34); MEAN CORPUSCULAR HGB CONC 30.9 g/dl (32-36); MEAN PLATELET VOLUME 10.2 fL (7.4-10.4); MONO % 9.8 %; NEUT % 72.7 %; PLATELET COUNT 291 K/uL (130-400); RED BLOOD COUNT 4.46 M/uL (4.2-5.4)
[2017-05-14] MEDS ORDERED: OSELTAMIVIR PHOSPHATE 75 MG CAP PO STA (23:09)
[2017-05-14] MEDS ORDERED: ALBUTEROL 0.083% NEBU SOLN 3 ML VIAL INH STA (23:09)
[2017-05-14 23:13] LABS: URINE APPEARANCE CLEAR (CLEAR); URINE BILIRUBIN NEG (NEG); URINE COLOR YELLOW; URINE NITRITE NEG (NEG); UROBILINOGEN NEG (NEG)
[2017-05-14 23:15] LABS: REVIEW REQ? NO
[2017-05-14] MEDS ORDERED: BENZONATATE 100MG CAP PO ONE (23:15)
[2017-05-14 23:16] LABS: MANUAL MICROSCOPIC REQUIRED? YES
[2017-05-14 23:20] LABS: INR 1.1 (0.9-1.1); PROTHROMBIN TIME (PATIENT) 11.4 SECONDS (9.0-12.0)
[2017-05-14 23:30] LABS: ALT/SGPT 31 U/L (12-78); BLOOD UREA NITROGEN 12 mg/dl (7-18); BUN/CREATININE RATIO 12.3 (10-20); CALCIUM 8.7 mg/dl (8.5-10.1); CARBON DIOXIDE 23 mmol/L (21-32); CHLORIDE 102 mmol/L (98-107); CREATININE 0.94 mg/dl (0.60-1.20); GLUCOSE 160 mg/dl (70-99); POTASSIUM 3.3 mmol/L (3.5-5.1); SODIUM 135 mmol/L (136-145)
[2017-05-14 23:34] LABS: ALB/GLOB RATIO 0.7 (0.9-2); ALKALINE PHOSPHATASE 80 U/L (45-117); AST/SGOT 25 U/L (15-37)
[2017-05-14] MEDS ORDERED: ACETAMINOPHEN 500 MG TAB PO STA (23:47)
[2017-05-14 23:54] VITALS: BP 133/73; PULSE 100; O2SAT 95
[2017-05-15] MEDS ORDERED: BENZ100C18 PO (00:04)
[2017-05-15] MEDS ORDERED: OSEL75CA12 PO (00:04)
--- NOTE | 2017-05-15 00:32 | EMERGENCY ROOM VISIT NOTE ---
History Report prepared by Tay: Yesi Hoover Under the Supervision of: Kris AlejandraO. First contact with patient: 22:17 Chief Complaint: FLU LIKE SX Stated Complaint: SOB, ACH ALL OVER History of Present Illness The patient is a 67 year old female who presents to the Emergency Room with complaints of flu-like symptoms beginning 2 days ago. The patient states that she started with a dry cough 2 days ago. She also reports having a sore throat and a headache. The patient also reports feeling achy. The patient states that she has been around sick family members who have had vomiting and diarrhea. Patient admits to diffuse body aches as well. The patient reports having the flu before but that her symptoms have never been this bad. Pt denies change in vision, fevers, chest pain, abdominal pain, shortness of breath, nausea, vomiting, diarrhea, pain with urination, and melena. Source of History: patient Onset: 2 days ago Position: other (global) Quality: other (flu-like symptoms ) Associated Symptoms: + headache, + sorethroat, + cough (dry), + weakness ( achiness), No chest pain, No SOB, No nausea, No vomiting, No abdominal pain, No diarrhea, No urinary symptoms Review of Systems See HPI for pertinent positives & negatives. A total of 10 systems reviewed and were otherwise negative. Past Medical & Surgical Medical Problems: (1) DIAB W NEURO MANIFEST, TYPE II OR UNSPEC TYPE, NOT UNCNTRLD (2) Diabetic peripheral neuropathy associated with type 2 diabetes mellitus (3) SCHMIDT (dyspnea on exertion) (4) Exertional dyspnea (5) Fatty liver (6) HX-VENOUS THROMBOSIS&EMBOLISM (7) Hyperlipidemia (8) HYPERLIPIDEMIA NEC/NOS (9) HYPERTENSION NOS (10) Kidney stone (11) Left arm pain (12) Pneumonia (13) Sleep apnea, obstructive Surgical Problems: (1) History of appendectomy (2) History of herniorrhaphy (3) Previous section Family History Heart disease Social History Smoking Status: Never Smoker Alcohol Use: none Drug Use: none Marital Status: Housing Status: lives with family Occupation Status: retired Current/Historical Medications Scheduled Amlodipine Besylate (Amlodipine Besylate), 5 MG PO DAILY Aspirin (Aspirin Ec), 81 MG PO QAM Atorvastatin (Lipitor), 40 MG PO QAM Benzonatate (Tessalon Perles), 1 CAP PO TID Cholecalciferol (Vitamin D3), 1,000 UNITS PO QPM Diclofenac Sod (Diclofenac Sodium Dr), 75 MG PO BID Gabapentin (Neurontin), 900 MG PO TID Glimepiride (Amaryl), 4 MG PO BID Hctz/Losartan (Hyzaar 12.5MG/100MG), 0.5 TABLET PO QAM Metformin Hcl (Glucophage Ext Rel), 1,000 MG PO BID Nortriptyline Hcl (Pamelor), 75 MG PO HS Omeprazole (Prilosec), 20 MG PO QAM Oseltamivir (Tamiflu), 75 MG PO BID Potassium Chloride (K-Tabs), 1 TAB PO DAILY Scheduled PRN Albuterol Sulf (Albuterol Sulfate), 2.5 MG INH Q4H PRN for sob Hydrocodone/Acetaminophen 5MG/325MG ([place] 5MG/325MG), 1 TAB PO BID PRN for Pain Allergies Coded Allergies: Cefuroxime (Verified Adverse Reaction, Mild, upset stomach, 05/14/17) Physical Exam Vital Signs Date Time Temp Pulse Resp B/P (MAP) Pulse Ox O2 Delivery O2 Flow Rate FiO2 05/14/17 23:54 100 20 133/73 95 05/14/17 22:36 95 Room Air 05/14/17 22:36 95 Room Air 05/14/17 22:08 37.3 116 20 137/81 95 Room Air Physical Exam GENERAL: Sitting up in bed, alert, disheveled, no distress, non-toxic, dry non- productive cough EYE EXAM: normal conjunctiva. PERRL and EOM's grossly intact. OROPHARYNX: no exudate, no erythema, lips, buccal mucosa, and tongue normal and mucous membranes are dry NECK: supple, no nuchal rigidity, no adenopathy, non-tender,negative Brudzinski' s sign LUNGS: Clear to auscultation. Normal chest wall mechanics HEART: tachycardic, no murmurs, S1 normal and S2 normal ABDOMEN: abdomen soft, non-tender, normo-active bowel sounds, no masses, no rebound or guarding. BACK: Back is symmetrical on inspection and there is no deformity, no midline tenderness, no CVA tenderness. SKIN: no rashes and no bruising UPPER EXTREMITIES: upper extremities are grossly normal. LOWER EXTREMITIES: No pitting edema.Calves are equal bilaterally. NEURO EXAM: Normal sensorium, cranial nerves II-XII grossly intact, normal speech, no gross weakness of arms, no gross weakness of legs. Medical Decision & Procedures ER Provider Diagnostic Interpretation: Radiology results as stated below per my review and the radiologist's interpretation: CHEST ONE VIEW PORTABLE HISTORY: 67 years-old Female EVALUATE RESPIRATORY DISTRESS.DYSPNEA acute respiratory distress COMPARISON: Portable chest radiograph 09/26/2016 TECHNIQUE: Portable AP view of the chest FINDINGS: Cardiac silhouette is mildly enlarged. Lungs are mildly hypoinflated with bronchovascular crowding. No pneumothorax, pleural effusion or overt pulmonary edema. Hazy subsegmental bibasilar opacities are present. The bones appear grossly intact. Degenerative changes of the shoulders and spine. IMPRESSION: 1. Hazy subsegmental bibasilar opacities suggest atelectasis. 2. Hypoinflation. The above report was generated using voice recognition software. It may contain grammatical, syntax or spelling errors. Electronically signed by: Brian Parrish M.D. 05/14/2017 11:01 PM Dictated Date/Time: 05/14/2017 10:59 PM Laboratory Results 05/14/17 22:50 Red Blood Count 4.46, Mean Corpuscular Volume 76.9, Mean Corpuscular Hemoglobin 23.8, Mean Corpuscular Hemoglobin Concent 30.9, Mean Platelet Volume 10.2, Neutrophils (%) (Auto) 72.7, Lymphocytes (%) (Auto) 15.3, Monocytes (%) (Auto) 9.8, Eosinophils (%) (Auto) 1.5, Basophils (%) (Auto) 0.5, Neutrophils # (Auto) 6.40, Lymphocytes # (Auto) 1.35, Monocytes # (Auto) 0.86, Eosinophils # (Auto) 0.13, Basophils # (Auto) 0.04 05/14/17 22:50 Test 05/14/17 22:30 05/14/17 22:45 05/14/17 22:50 Influenza Type A Antigen POS for Influ A (NEG) Influenza Type B Antigen Neg for Influ B (NEG) Urine Color YELLOW Urine Appearance CLEAR (CLEAR) Urine pH 7.0 (4.5-7.5) Urine Specific [place] 1.010 (1.000-1.030) Urine Protein 1+ (NEG) Urine Glucose (UA) TRACE (NEG) Urine Ketones 1+ (NEG) Urine Occult Blood TRACE (NEG) Urine Nitrite NEG (NEG) Urine Bilirubin NEG (NEG) Urine Urobilinogen NEG (NEG) Urine Leukocyte Esterase SMALL (NEG) White Blood Count 8.80 K/uL (4.8-10.8) Red Blood Count 4.46 M/uL (4.2-5.4) Hemoglobin 10.6 g/dL (12.0-16.0) Hematocrit 34.3 % (37-47) Mean Corpuscular Volume 76.9 fL (80-100) Mean Corpuscular Hemoglobin 23.8 pg (25-34) Mean Corpuscular Hemoglobin Concent 30.9 g/dl (32-36) Platelet Count 291 K/uL (130-400) Mean Platelet Volume 10.2 fL (7.4-10.4) Neutrophils (%) (Auto) 72.7 % Lymphocytes (%) (Auto) 15.3 % Monocytes (%) (Auto) 9.8 % Eosinophils (%) (Auto) 1.5 % Basophils (%) (Auto) 0.5 % Neutrophils # (Auto) 6.40 K/uL (1.4-6.5) Lymphocytes # (Auto) 1.35 K/uL (1.2-3.4) Monocytes # (Auto) 0.86 K/uL (0.11-0.59) Eosinophils # (Auto) 0.13 K/uL (0-0.5) Basophils # (Auto) 0.04 K/uL (0-0.2) RDW Standard Deviation 49.4 fL (36.4-46.3) RDW Coefficient of Variation 17.5 % (11.5-14.5) Immature Granulocyte % (Auto) 0.2 % Immature Granulocyte # (Auto) 0.02 K/uL (0.00-0.02) Prothrombin Time 11.4 SECONDS (9.0-12.0) Prothromb Time International Ratio 1.1 (0.9-1.1) Activated Partial Thromboplast Time 26.7 SECONDS (21.0-31.0) Partial Thromboplastin Ratio 1.0 Anion Gap 11.0 mmol/L (3-11) Est Creatinine Clear Calc Drug Dose 64.6 ml/min Estimated GFR () 73.8 Estimated GFR (Non- 63.7 BUN/Creatinine Ratio 12.3 (10-20) Calcium Level 8.7 mg/dl (8.5-10.1) Total Bilirubin 0.6 mg/dl (0.2-1) Aspartate Amino Transf (AST/SGOT) 25 U/L (15-37) Alanine Aminotransferase (ALT/SGPT) 31 U/L (12-78) Alkaline Phosphatase 80 U/L (45-117) Troponin I < 0.015 ng/ml (0-0.045) Total Protein 7.4 gm/dl (6.4-8.2) Albumin 3.1 gm/dl (3.4-5.0) Globulin 4.3 gm/dl (2.5-4.0) Albumin/Globulin Ratio 0.7 (0.9-2) Laboratory results per my review. Medications Administered Medications (Trade) Dose Ordered Sig/Juan Route Start Time Stop Time Status Last Admin Dose Admin Sodium Chloride 1,000 ml @ 999 mls/hr Q1H1M STAT IV 05/14/17 22:24 05/14/17 23:24 DC 05/14/17 22:24 999 MLS/HR Ketorolac Tromethamine (Toradol Inj) 15 mg NOW STAT IV 05/14/17 22:24 05/14/17 22:25 DC 05/14/17 22:24 15 MG Oseltamivir Phosphate (Tamiflu Cap) 75 mg NOW STAT PO 05/14/17 23:09 05/14/17 23:10 DC 05/14/17 23:18 75 MG Albuterol Sulfate (Ventolin 0.083% 2.5MG/3ML Neb) 2.5 mg NOW STAT INH 05/14/17 23:09 05/14/17 23:10 DC 05/14/17 23:17 2.5 MG Benzonatate (Tessalon Perles Cap) 100 mg NOW ONCE PO 05/14/17 23:15 05/14/17 23:16 DC 05/14/17 23:18 100 MG ECG Indication: weakness Rate (beats per minute): 112 Rhythm: sinus tachycardia Findings: no ectopy, other (poor R wave progression is old, left axis ) ED Course ED COURSE: Vital signs were reviewed and showed tachycardia. The patients medical record was reviewed The above diagnostic studies were performed and reviewed. ED treatments and interventions as stated above. 2222: The patient was evaluated in room B4B. A complete history and physical examination was performed. 2224: Ordered Toradol Inj 15 mg IV, Sodium Chloride 1,000 ml @ 999 mls/hr IV. 2309: Ordered Albuterol Sulfate 2.5 mg INH, Tamiflu Cap 75 mg PO. 2315: Ordered Benzonatate 100 mg PO. 2347: Ordered Tylenol Tab 1,000 mg PO. 2359: I re-evaluated the patient. 0025: Upon reevaluation, the patient is feeling better. I discussed the findings and the treatment plan with the patient. She verbalizes agreement and understanding. She was discharged home. Medical Decision Differential diagnosis includes etiologies such as sepsis, UTI, pneumonia, metabolic, electrolyte abnormalities, cardiac sources, intracerebral event, toxicologic, neurologic, as well as others were entertained. Patient is a 67-year-old female who presents to ER for cough, congestion, sore throat, diffuse myalgias and headache. Symptoms present since Friday. No chest pain or shortness of breath. CBC shows a mild anemia. BMP with mild hypokalemia. LFTs and bilirubin was normal. Troponin negative. No urinary symptoms. Influenza A was positive. Chest x-ray shows no infiltrate. Patient was given Tamiflu, IV fluids, no treatment and felt significantly better. EKG shows no acute pathology. Patient was updated bedside. She was discharged follow-up with PCP with influenza A. She was able to ambulate without difficulty. Discussed with Pt concerning signs and symptoms to watch out for. Pt was instructed to follow up with their PCP and discussed with the patient their option to return to the ED at anytime for persistent or worsening symptoms. The appropriate anticipatory guidance and out-patient management, including indications for return to the emergency department, were explained at length to the patient and understood. Medication Reconcilliation Current Medication List: was personally reviewed by me Blood Pressure Screening Patient's blood pressure: Normal blood pressure Impression Primary Impression: Influenza A Scribe Attestation The scribe's documentation has been prepared under my direction and personally reviewed by me in its entirety. I confirm that the note above accurately reflects all work, treatment, procedures, and medical decision making performed by me. Departure Information Dispostion Home / Self-Care Prescriptions Benzonatate (VIDHYA COLLINSES) 100 Mg Cap 1 CAP PO TID for 10 Days, #30 CAP Prov: Ankur Ruiz, DO 05/15/17 Oseltamivir (Tamiflu) 75 Mg Cap 75 MG PO BID, #10 CAP Prov: Ankur Ruiz, DO 05/15/17 Referrals Elda Ng (PCP) Forms HOME CARE DOCUMENTATION FORM, IMPORTANT VISIT INFORMATION Patient Instructions Flu, [facility], Oseltamivir oral suspension Additional Instructions Please follow up with your primary care doctor with in the next 24 hours. Any worsening of your symptoms, please return to the ED immediately. This includes any fevers greater than 100.4, worsening pain, chest pain, shortness breath, persistent nausea, vomiting, unable to eat or drink, or any other concerning signs or symptoms from your standpoint. Please take Tylenol or Motrin as needed for muscle aches and fevers. Please take Tessalon pearls as prescribed for coughing. Please take Tamiflu as prescribed.
== END 2017-05-15 00:20 | disposition home or self-care (01) ==
LOC: C.EDB 22:06
DX: J09.X2 Influenza due to identified novel influenza A virus with other respiratory manifestations (principal); E11.42 Type 2 diabetes mellitus with diabetic polyneuropathy; K76.0 Fatty (change of) liver, not elsewhere classified; E78.5 Hyperlipidemia, unspecified; I10 Essential (primary) hypertension; Z79.82 Long term (current) use of aspirin; Z79.84 Long term (current) use of oral hypoglycemic drugs; Z82.49 Family history of ischemic heart disease and other diseases of the circulatory system

== ENCOUNTER → 2017-06-09 | Outpatient (CLI) | payer OTHER, MEDICARE ==
--- NOTE | 2017-06-09 15:11 | DIAGNOSTIC IMAGING REPORT ---
ULTRASOUND R VENOUS DOPP LOWER EXT UNILAT CLINICAL HISTORY: RT LEG PAIN,SWELLING,R/O DVT COMPARISON STUDY: No previous studies for comparison. FINDINGS: Real-time and color flow Doppler imaging were performed. Flow was seen within the femoral, popliteal and calf veins with no intraluminal thrombus demonstrated. The saphenous vein is patent. There is a right popliteal cyst measuring 70 x 33 x 16 mm. IMPRESSION: 1. No evidence of right lower extremity DVT 2. Right popliteal cyst measuring 70 x 33 x 16 mm Electronically signed by: Isidro Perkins M.D. 06/09/2017 3:10 PM Dictated Date/Time: 06/09/2017 3:09 PM
== END | disposition home or self-care (01) ==
LOC: C.ULTRBC 14:36
PROVIDERS: ATTEND Nurse Practitioner Family
DX: M79.604 Pain in right leg (principal); M71.21 Synovial cyst of popliteal space [Baker], right knee

== ENCOUNTER → 2017-06-23 | Outpatient (CLI) | payer OTHER, MEDICARE | END | disposition home or self-care (01) | LOC: C.PAPS 11:57 | PROVIDERS: ATTEND Obstetrics & Gynecology | DX: Z12.4 Encounter for screening for malignant neoplasm of cervix (principal) ==

== ENCOUNTER → 2017-07-01 | Outpatient (CLI) | payer OTHER, MEDICARE ==
[~2017-07-01] MED LIST changes: +OXYC-57 PO
== END | disposition home or self-care (01) ==
LOC: C.MAMM 08:48
PROVIDERS: ATTEND Orthopaedic Surgery
DX: M41.86 Other forms of scoliosis, lumbar region (principal); M48.061 Spinal stenosis, lumbar region without neurogenic claudication; Z88.1 Allergy status to other antibiotic agents

== ENCOUNTER → 2017-09-19 | Outpatient (CLI) | payer OTHER, MEDICARE ==
[~2017-09-19] MED LIST changes: +CYM/30 PO; -HYDR-5688 PO
--- NOTE | 2017-09-22 08:09 | MAMMOGRAPHY REPORT ---
BILATERAL DIGITAL SCREENING MAMMOGRAM TOMOSYNTHESIS WITH CAD: 09/19/2017 CLINICAL HISTORY: Routine screening. Patient has no complaints. TECHNIQUE: Breast tomosynthesis in addition to standard 2D mammography was performed. Current study was also evaluated with a Computer Aided Detection (CAD) system. COMPARISON: Comparison is made to exams dated: 09/18/2016 mammogram, 09/06/2015 mammogram, 08/31/2014 connie mogram, 08/25/2013 mammogram, 08/19/2012 mammogram, and 08/07/2011 mammogram - [facility] er. BREAST COMPOSITION: The tissue of both breasts is almost entirely fatty. FINDINGS: No suspicious masses, calcifications, or areas of architectural distortion are noted in ei ther breast. There has been no significant interval change compared to prior exams. Scattered bilater al benign-appearing calcifications are not significantly changed. IMPRESSION: ACR BI-RADS CATEGORY 2: BENIGN There is no mammographic evidence of malignancy. A 1 year screening mammogram is recommended. The pa tient will receive written notification of the results. Approximately 10% of breast cancers are not detected with mammography. A negative mammographic report should not delay biopsy if a clinically suggestive mass is present. Gail Ortez M.D. /:09/19/2017 12:18:36 Float Nurse: Isi KLEIN(Hilda)(Donya)(SHARYN), [facility] letter sent: Normal 1/2 BI-RADS Code: ACR BI-RADS Category 2: Benign
== END | disposition home or self-care (01) ==
LOC: C.MAMM 10:27
PROVIDERS: ATTEND Obstetrics & Gynecology
DX: Z12.31 Encounter for screening mammogram for malignant neoplasm of breast (principal)

== ENCOUNTER → 2017-12-29 | Day surgery (SDC) | payer OTHER, MEDICARE ==
[2017-12-22 09:20] VITALS: Ht 158.8 cm; Wt 90.9 kg
[~2017-12-29] VITALS: Ht 158.8 cm; Wt 90.9 kg
[~2017-12-29] MED LIST changes: +AMT/25 PO; -CYM/30 PO; +CYM/60 PO; +LIDOCAINE HCL 2% 2 ML VIAL (20MG/ML) ONE; -MCRK/10 PO; -NORT75CA2 PO; +PROPOFOL IV EMULSION 10 MG/ML 20 ML VIAL ONE
--- NOTE | 2017-12-29 13:54 | Endo History and Physical ---
History & Physical Date of Service: Dec 29, 2017. Chief Complaint: Iron Deficiency Anemia Referring Physician: Berenice Schroeder History of Present Illness For EGD and colonoscopy Past Medical History Diabetes, Anxiety, Reflux, High Cholesterol, Sleep Apnea, Hypertension Past Surgical History Hx Cardiac Surgery: No Hx Internal Defibrillator: No Hx Pacemaker: No Hx Abdominal Surgery: Yes (C SECTION X3, APPENDECTOMY) Hx of Implantable Prosthesis: No Hx Post-Op Nausea and Vomiting: No Hx Cancer Surgery: No Hx Thoracic Surgery: No Hx Orthopedic: Yes (right ankle surgery rods and screws) Hx Urinary Tract Surgery: No Family History None Social History Smoking Status: Never Smoker Hx Substance Use: Yes (OXYCODONE DAILY) Hx Alcohol Use: No Allergies Coded Allergies: Cefuroxime (Verified Adverse Reaction, Mild, upset stomach, 12/22/17) Current Medications Reported Home Medications Medications Dose Route/Sig Max Daily Dose Days Date Category Dose Instructions Amitriptyline HCl 25 Mg Tab 25 Mg PO HS 10/10/17 Reported Cymbalta (Duloxetine HCl) 60 Mg Cap 60 Mg PO QAM 10/10/17 Reported Percocet 5MG/325MG (Oxycodone/Acetaminophen) Tab 1 Tab PO QID 07/11/17 Reported PAIN Albuterol Sulfate (Albuterol Sulf) 2.5 Mg/3 Ml Nebu 2.5 Mg INH Q4H PRN 30 09/28/16 Rx Neurontin (Gabapentin) 300 Mg Cap 900 Mg PO TID 09/26/[address] (Diclofenac Sod) 75 Mg Tabcr 75 Mg PO BID 09/26/16 Reported TAKE WITH FOOD Amlodipine Besylate 5 Mg Tab 5 Mg PO DAILY 09/26/16 Reported Glucophage Ext Rel (Metformin Hcl) 1,000 Mg Tab 1,000 Mg PO BID 05/28/16 Reported Lipitor (Atorvastatin Calcium) 40 Mg Tab 40 Mg PO QAM 02/10/15 Reported Vitamin D3 (Cholecalciferol) 1,000 Inter.unit Tab 1,000 Units PO QPM 08/15/14 Reported Aspirin Ec (Aspirin) 81 Mg Tab 81 Mg PO QAM 05/02/13 Reported Prilosec (Omeprazole) 20 Mg Capcr 20 Mg PO QAM 10/19/12 Reported Hyzaar 12.5MG/100MG (Hctz/Losartan) 1 Tab Tab 0.5 Tablet PO QAM 10/19/12 Reported 100MG/25MG Amaryl (Glimepiride) 4 Mg Tab 4 Mg PO BID 06/05/12 Reported Vital Signs Weight (Kilograms): 90.91 Height (Feet): 5 Height (Inches): 2.5 Date Time Temp Pulse Resp B/P (MAP) Pulse Ox O2 Delivery O2 Flow Rate FiO2 12/29/17 13:35 36.7 97 16 160/95 (116) 95 Room Air Physical Exam General Appearance: WD/WN Respiratory/Chest: Respiratory effort: no dyspnea Cardiovascular: Heart Auscultation: RRR Abdomen: Inspection & Palpation: soft Assessment and Plan Anemia for EGD and colonoscopy
--- NOTE | 2017-12-29 14:25 | Discharge Instructions ---
Endoscopy Patient Instructions Date / Procedure(s) Performed Dec 29, 2017. Colonoscopy, EGD Allergy Information Coded Allergies: Cefuroxime (Verified Adverse Reaction, Mild, upset stomach, 12/22/17) Discharge Date / Findings Dec 29, 2017. Normal EGD and Colon Medication Instructions Restart Stopped Medication(s): resume meds Reported Home Medications Medications Dose Route/Sig Max Daily Dose Days Date Category Dose Instructions Amitriptyline HCl 25 Mg Tab 25 Mg PO HS 10/10/17 Reported Cymbalta (Duloxetine HCl) 60 Mg Cap 60 Mg PO QAM 10/10/17 Reported Percocet 5MG/325MG (Oxycodone/Acetaminophen) Tab 1 Tab PO QID 07/11/17 Reported PAIN Albuterol Sulfate (Albuterol Sulf) 2.5 Mg/3 Ml Nebu 2.5 Mg INH Q4H PRN 30 09/28/16 Rx Neurontin (Gabapentin) 300 Mg Cap 900 Mg PO TID 09/26/[address] (Diclofenac Sod) 75 Mg Tabcr 75 Mg PO BID 09/26/16 Reported TAKE WITH FOOD Amlodipine Besylate 5 Mg Tab 5 Mg PO DAILY 09/26/16 Reported Glucophage Ext Rel (Metformin Hcl) 1,000 Mg Tab 1,000 Mg PO BID 05/28/16 Reported Lipitor (Atorvastatin Calcium) 40 Mg Tab 40 Mg PO QAM 02/10/15 Reported Vitamin D3 (Cholecalciferol) 1,000 Inter.unit Tab 1,000 Units PO QPM 08/15/14 Reported Aspirin Ec (Aspirin) 81 Mg Tab 81 Mg PO QAM 05/02/13 Reported Prilosec (Omeprazole) 20 Mg Capcr 20 Mg PO QAM 10/19/12 Reported Hyzaar 12.5MG/100MG (Hctz/Losartan) 1 Tab Tab 0.5 Tablet PO QAM 10/19/12 Reported 100MG/25MG Amaryl (Glimepiride) 4 Mg Tab 4 Mg PO BID 06/05/12 Reported Provider Instructions Activity Restrictions - No exercising or heavy lifting for 24 hours. - Do not drink alcohol the day of the procedure. - Do not drive a car or operate machinery until the day after the procedure. - Do not make any important decisions or sign important papers in 24 hours after the procedure. Following Day: - Return to full activity which may include returning to work/school. Diet Start your diet with liquids and light foods (jello, soup, juice, toast). Then eat your usual diet if not nauseated. Treatment For Common After Affects For mild abdominal pain, bloating, or excessive gas: - Rest - Eat lightly - Lie on right side Follow-Up Information Follow-up with Berenice Schroeder as scheduled Anesthesia Information What You Should Know You have had a procedure that required some medicine to reduce anxiety and discomfort. This treatment is called moderate sedation. After receiving the treatment, you may be sleepy, but you will be able to breathe on your own. The effects of the treatment may last for several hours. Follow these instructions along with Activity/Diet recommendations noted above: * Do NOT do anything where dizziness or clumsiness would be dangerous. * Rest quietly at home today, then you can be up and about tomorrow. * Have a responsible person stay with you the rest of today. * You may have had an I.V. today. If so, you may take the dressing off later today. Recommendations Call your doctor if: * Trouble breathing * Continuous vomiting for more than 24 hours * Temperature above 101 degrees * Severe abdominal pain or bloating * Pain not relieved by pain medicine ordered * There is increased drainage or redness from any incision * A large amount of rectal bleeding greater than 2-3 tablespoons. (If you had a polyp/s removed or have hemorrhoids, a small amount of blood - from the rectum is to be expected.) * You have any unanswered questions or concerns. IN THE EVENT OF A SERIOUS EMERGENCY, GO TO THE NEAREST EMERGENCY ROOM Your discharge instructions were prepared by provider Severino Garza. Patient Instructions Signature Page Rosa Elizabeth Patient (or Guardian) Signature/Date: I have read and understand the instructions given to me by my caregivers. Caregiver/RN/Doctor Signature/Date: The above-named patient and/or guardian has received patient instructions on this date. + Original Patient Signature Page (only) stays with chart. Please make copy for patient.
--- NOTE | 2017-12-29 14:29 | GI REPORT ---
Patient Name: Rosa Elizabeth Procedure Date: 12/29/2017 1:48 PM Date of : 1950 Admit Type: Outpatient Age: 67 Gender: Female Attending MD: Severino Garza MD Procedure: Upper GI endoscopy Providers: Severino Garza MD Referring MD: Elda Ng Indications: Iron deficiency anemia Medicines: Propofol total dose 680 mg IV, Lidocaine 80 mg IV Complications: No immediate complications. Estimated Blood Loss: Estimated blood loss: none. Procedure: Pre-Anesthesia Assessment: - Prior to the procedure, a History and Physical was performed, and patient medications, allergies and sensitivities were reviewed. The patient's tolerance of previous anesthesia was reviewed. - The risks and benefits of the procedure and the sedation options and risks were discussed with the patient. All questions were answered and informed consent was obtained. After obtaining informed consent, the endoscope was passed under direct vision. Throughout the procedure, the patient's blood pressure, pulse, and oxygen saturations were monitored continuously. The Scope was introduced through the mouth, and advanced to the third part of duodenum. The upper GI endoscopy was accomplished without difficulty. The patient tolerated the procedure well. Findings: The examined esophagus was normal. The Z-line was regular and was found 38 cm from the incisors. The entire examined stomach was normal. The second portion of the duodenum was normal. Biopsies were taken with a cold forceps for histology. Impression: - Normal esophagus. - Z-line regular, 38 cm from the incisors. - Normal stomach. - Normal second portion of the duodenum. Biopsied. Recommendation: - Discharge patient to home (ambulatory). - Continue present medications. - Await pathology results. - Return to primary care physician PRN. Severino Garza M.D. Severino Garza MD 12/29/2017 2:29:05 PM This report has been signed electronically. Note Initiated On: 12/29/2017 1:48 PM Number of Addenda: 0 I attest to the content of the Intraoperative Record and orders documented therein, exceptions below {[id number]}
--- NOTE | 2017-12-29 14:32 | GI REPORT ---
Patient Name: Rosa Elizabeth Procedure Date: 12/29/2017 1:47 PM Date of : 1950 Admit Type: Outpatient Age: 67 Gender: Female Attending MD: Severino Garza MD Procedure: Colonoscopy Providers: Severino Garza MD Referring MD: Elda Ng Indications: Iron deficiency anemia Medicines: Propofol total dose 680 mg IV, Lidocaine 80 mg IV Complications: No immediate complications. Estimated Blood Loss: Estimated blood loss: none. Procedure: Pre-Anesthesia Assessment: - Prior to the procedure, a History and Physical was performed, and patient medications, allergies and sensitivities were reviewed. The patient's tolerance of previous anesthesia was reviewed. - The risks and benefits of the procedure and the sedation options and risks were discussed with the patient. All questions were answered and informed consent was obtained. After I obtained informed consent, the scope was passed under direct vision. Throughout the procedure, the patient's blood pressure, pulse, and oxygen saturations were monitored continuously. The Scope was introduced through the anus and advanced to the terminal ileum. The colonoscopy was performed without difficulty. The patient tolerated the procedure well. The quality of the bowel preparation was good. Findings: The terminal ileum appeared normal. The entire examined colon appeared normal. Impression: - The examined portion of the ileum was normal. - The entire examined colon is normal. - No specimens collected. Recommendation: - Discharge patient to home (ambulatory). - Continue present medications. - Repeat colonoscopy in 10 years for screening purposes. - Return to primary care physician PRN. Severino Garza M.D. Severino Garza MD 12/29/2017 2:31:56 PM This report has been signed electronically. Note Initiated On: 12/29/2017 1:47 PM Number of Addenda: 0 I attest to the content of the Intraoperative Record and orders documented therein, exceptions below {[id number]}
--- NOTE | 2017-12-29 14:36 | Anesthesiology Progress Note ---
Anesthesia Post Op Note Date & Time Dec 29, 2017 at 14:36 Vital Signs Vital Signs Past 12 Hours Date Time Temp Pulse Resp B/P (MAP) Pulse Ox O2 Delivery O2 Flow Rate FiO2 12/29/17 14:26 93 18 107/68 (81) 93 Nasal Cannula 5 12/29/17 13:35 36.7 97 16 160/95 (116) 95 Room Air Notes Mental Status: alert / awake / arousable, participated in evaluation Pt Amnestic to Procedure: Yes Nausea / Vomiting: adequately controlled Pain: adequately controlled Airway Patency, RR, SpO2: stable & adequate BP & HR: stable & adequate Hydration State: stable & adequate Anesthetic Complications: no major complications apparent
[2017-12-29 14:56] VITALS: BP 138/79; PULSE 94; O2SAT 9
== END | disposition home or self-care (01) ==
LOC: C.GI 12:26
PROVIDERS: ATTEND Internal Medicine Gastroenterology
DX: D50.9 Iron deficiency anemia, unspecified (principal); E11.9 Type 2 diabetes mellitus without complications; I10 Essential (primary) hypertension; G47.33 Obstructive sleep apnea (adult) (pediatric); E66.9 Obesity, unspecified; Z68.36 Body mass index [BMI] 36.0-36.9, adult; Z88.1 Allergy status to other antibiotic agents; Z79.82 Long term (current) use of aspirin; Z79.899 Other long term (current) drug therapy; Z86.718 Personal history of other venous thrombosis and embolism

== ENCOUNTER → 2018-01-26 | Outpatient (CLI) | payer OTHER, MEDICARE ==
[~2018-01-26] MED LIST changes: -LIDOCAINE HCL 2% 2 ML VIAL (20MG/ML) ONE; -PROPOFOL IV EMULSION 10 MG/ML 20 ML VIAL ONE
[2018-01-26 16:02] LABS: HEMATOCRIT 29.1 % (37-47); HEMOGLOBIN 8.1 g/dL (12.0-16.0); MEAN CELL VOLUME 68.3 fL (80-100); MEAN CORPUSCULAR HGB CONC 27.8 g/dl (32-36); MEAN PLATELET VOLUME 9.1 fL (7.4-10.4); PLATELET COUNT 313 K/uL (130-400); RED CELL DISTRIBUTION WIDTH CV 18.9 % (11.5-14.5); RED CELL DISTRIBUTION WIDTH SD 47.3 fL (36.4-46.3); WHITE BLOOD COUNT 8.95 K/uL (4.8-10.8)
[2018-01-26 16:15] LABS: ALBUMIN 3.2 gm/dl (3.4-5.0); ALKALINE PHOSPHATASE 90 U/L (45-117); ALT/SGPT 25 U/L (12-78); AST/SGOT 21 U/L (15-37); BLOOD UREA NITROGEN 11 mg/dl (7-18); CALCIUM 8.4 mg/dl (8.5-10.1); CARBON DIOXIDE 24 mmol/L (21-32); CREATININE 0.96 mg/dl (0.60-1.20); GLUCOSE 130 mg/dl (70-99); POTASSIUM 3.1 mmol/L (3.5-5.1); SODIUM 141 mmol/L (136-145); TOTAL PROTEIN 7.1 gm/dl (6.4-8.2)
[2018-01-26 16:23] LABS: BASO % 0.8 %; BASO ABS # 0.07 K/uL (0-0.2); EOS % 3.9 %; EOS ABS # 0.35 K/uL (0-0.5); IG# 0.03 K/uL (0.00-0.02); LYMPH % 39.2 %; LYMPH ABS # 3.51 K/uL (1.2-3.4); MONO % 6.4 %; MONO ABS # 0.57 K/uL (0.11-0.59); NEUT % 49.4 %; NEUT ABS # 4.42 K/uL (1.4-6.5)
--- NOTE | 2018-01-26 16:32 | DIAGNOSTIC IMAGING REPORT ---
BILATERAL LOWER EXTREMITY ARTERIAL DOPPLER ULTRASOUND CLINICAL HISTORY: Diabetic neuropathy. Fatigue. Right leg pain and weakness. COMPARISON STUDY: No previous studies for comparison. TECHNIQUE: Grayscale and color and duplex Doppler sonography of the arterial systems of both lower extremities was performed. FINDINGS: When using the posterior tibial artery, the right ankle to brachial index measured 1.28. When using the dorsalis pedis, the right measured 1.13. When using the posterior tibial artery, left ankle to brachial index measured 1.13. The ankle-brachial index measured 1.21 using the dorsalis pedis. No elevated velocities were identified within either lower extremity. Flow was preserved by sonography. Predominantly triphasic flow was noted within each lower extremity with several areas of biphasic flow. No significant atherosclerotic plaque was noted. Note was made of a 6.3 x 3.7 x 3.8 cm mildly complex suspected right popliteal cyst. This contains no color flow. IMPRESSION: 1. Unremarkable bilateral lower extremity arterial Doppler ultrasound. No evidence for stenosis. 2. 6.3 x 3.7 x 3.8 cm suspected right popliteal cyst. This contains low level echoes which favor debris. No color flow. A cystic mass is considered much less likely however a follow-up ultrasound in 3 months is recommended. Electronically signed by: Nir Jerome M.D. 01/26/2018 4:31 PM Dictated Date/Time: 01/26/2018 4:25 PM
[2018-01-27 05:55] LABS: HEMOGLOBIN A1C 6.9 % (4.5-5.6)
== END | disposition home or self-care (01) ==
LOC: C.ULTR 14:23
PROVIDERS: ATTEND Nurse Practitioner Family
DX: E78.5 Hyperlipidemia, unspecified (principal); I10 Essential (primary) hypertension; E11.43 Type 2 diabetes mellitus with diabetic autonomic (poly)neuropathy; R53.83 Other fatigue

== ENCOUNTER 2018-07-28 13:03 | Observation (INO) ==
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
--- NOTE | 2018-07-16 14:12 | PAT Medication Instructions ---
Medication Instructions Date of Service July 16, 2018 Home Medications albuterol sulfate 2.5 mg/3 mL (0.083 %) solution for nebulization 2.5 mg INH Q4H PRN amitriptyline 25 mg tablet 25 mg PO QPM amlodipine 5 mg tablet 5 mg PO QAM aspirin 81 mg tablet,delayed 81 mg PO DAILY atorvastatin 40 mg tablet 40 mg PO DAILY cholecalciferol (vitamin D3) 1,000 1,000 units PO QAM duloxetine 60 mg capsule,delayed 60 mg PO QAM gabapentin 300 mg capsule 900 mg PO TID glimepiride 4 mg tablet 4 mg PO BID tab losartan 100mg-hydrochlorothiazide 12.5 mg 1 tab PO QAM tab metformin ER 1,000 mg 1,000 mg PO BID tab omeprazole magnesium 20 mg 20 mg PO QAM oxycodone-acetaminophen 5 mg-325 1 tab PO Q6H PRN duloxetine 30 mg capsule,delayed 30 mg PO QAM ASK your surgeon for instructions aspirin 81 mg tablet,delayed 81 mg PO DAILY DO NOT take the morning of surgery cholecalciferol (vitamin D3) 1,000 1,000 units PO QAM glimepiride 4 mg tablet 4 mg PO BID tab losartan 100mg-hydrochlorothiazide 12.5 mg 1 tab PO QAM tab metformin ER 1,000 mg 1,000 mg PO BID tab Take morning of surgery With a small sip of water, OTHERWISE NOTHING TO EAT OR DRINK AFTER MIDNIGHT: albuterol sulfate 2.5 mg/3 mL (0.083 %) solution for nebulization 2.5 mg INH Q4H PRN (if needed) amlodipine 5 mg tablet 5 mg PO QAM atorvastatin 40 mg tablet 40 mg PO DAILY duloxetine 60 mg capsule,delayed 60 mg PO QAM duloxetine 30 mg capsule,delayed 30 mg PO QAM gabapentin 300 mg capsule 900 mg PO TID omeprazole magnesium 20 mg 20 mg PO QAM oxycodone-acetaminophen 5 mg-325 1 tab PO Q6H PRN (if needed, may be taken up to four hours before surgery) Take evening before surgery albuterol sulfate 2.5 mg/3 mL (0.083 %) solution for nebulization 2.5 mg INH Q4H PRN (if needed) amitriptyline 25 mg tablet 25 mg PO QPM gabapentin 300 mg capsule 900 mg PO TID glimepiride 4 mg tablet 4 mg PO BID tab metformin ER 1,000 mg 1,000 mg PO BID oxycodone-acetaminophen 5 mg-325 1 tab PO Q6H PRN (if needed) Other Notes If you have any questions please call us at [phone] or [phone] or [phone] or [phone]
[2018-07-16 15:16] LABS: Basophils # (auto) 0.04 K/uL (0-0.2); Basophils % (auto) 0.5 %; Eosinophils # (auto) 0.13 K/uL (0-0.5); Eosinophils % (auto) 1.6 %; Hematocrit (blood only) 40.4 % (37-47); Hemoglobin 12.7 g/dL (12.0-16.0); Immature Granulocytes # (auto) 0.02 K/uL (0.00-0.02); Immature Granulocytes % (auto) 0.2 %; Lymphocytes # (auto) 3.52 K/uL (1.2-3.4); Lymphocytes % (auto) 43.3 %; Mean Corpuscular Hgb Conc 31.4 g/dL (32-36); Mean Corpuscular Volume 86.5 fL (80-100); Mean Platelet Volume 10.3 fL (7.4-10.4); Monocytes # (auto) 0.53 K/uL (0.11-0.59); Monocytes % (auto) 6.5 %; Neutrophils # (auto) 3.89 K/uL (1.4-6.5); Neutrophils % (auto) 47.9 %; Platelet Count 311 K/uL (130-400); RDW Coefficient of Variation 17.6 % (11.5-14.5); Red Blood Count 4.67 M/uL (4.2-5.4); White Blood Count 8.13 K/uL (4.8-10.8)
[2018-07-16 15:25] LABS: BUN Creatinine Ratio 15.8 (10-20); Calcium 9.6 mg/dl (8.5-10.1); Creatinine Clr Calc Pharmacy 71.1 ml/min; Est GFR (African American) 85.2; Est GFR (Non-African American) 73.5; Potassium 3.6 mmol/L (3.5-5.1)
[2018-07-17 06:05] LABS: Estimated Average Glucose 148 mg/dl; Hemoglobin A1C 6.8 % (4.5-5.6)
[2018-07-20 12:22] LABS: Appearance Urine Clear (Clear); Bacteria Urine Automated Negative (Negative); Bilirubin Urine Negative (Negative); Blood Urine Negative (Negative); Color Urine Yellow; Epithelial Cell Urine Auto >30 /lpf (0-5); Glucose Urine UA Negative (Negative); Ketones Urine Negative (Negative); Leukocyte Esterase Urine 1+ (Negative); Nitrite Urine Negative (Negative); Protein Urine Negative (Negative); Specific Gravity Urine 1.023 (1.000-1.030); Urobilinogen Urine Negative (Negative); pH Urine 5.5 (4.5-7.5)
[2018-07-20 12:50] LABS: RBC Urine Automated 0-4 /hpf (0-4)
[~2018-07-28 13:03] MED LIST changes: -ALBINS INH; -AMT/25 PO; -ASPI81TA28 PO; -ATOR-24 PO; +CLINDAMYCIN 900 MG / 50ML D5W IV SCH; -CYM/60 PO; -GABA-113 PO; -GLIM4TAB PO; -LOSA100T33 PO; +LR 15ML/HR IV SCH; -METF1TAB53 PO; -NRV/5 PO; -OXYC-57 PO; -PRLSR20 PO; -VLT/75 PO; -VTMD1000 PO
[2018-07-28] MEDS ORDERED: DexMEDEtomidine HCL IV 100 MCG/ML VIAL ONE ×2 (14:16→16:46)
[2018-07-28] MEDS ORDERED: fentaNYL citrate 100 MCG/2 ML VIAL ONE ×5 (14:37→17:23)
[2018-07-28] MEDS ORDERED: MIDAZOLAM HCL 1 MG/ML 2ML VIAL ONE ×2 (14:38→15:45)
[2018-07-28] MEDS ORDERED: IOPAMIDOL INJ 61% 15 ML VIAL ONE (14:52)
[2018-07-28] MEDS ORDERED: SODIUM CHLORIDE 0.9% PF 50 ML VIAL ONE (14:53)
[2018-07-28] MEDS ORDERED: LIDOCAINE/EPINEPHRINE 1% 20 ML VIAL ONE ×2 (14:53→17:26)
--- NOTE | 2018-07-28 15:12 | History & Physical Bridge Note ---
Date of Service July 28, 2018 History & Physical Bridge Note I have examined the patient, reviewed the History & Physical and in the interval since the performance of the History & Physical I have noted the following changes of clinical significance: no changes noted The patient understands the risks of nerve root and spinal cord injury with the procedure possibly leading to paralysis as well as CSF leak and agrees to proceed.
[2018-07-28] MEDS ORDERED: HYDROmorphone INJ 2 MG/ML SYR/VIAL ONE ×2 (17:25→17:34)
[2018-07-28] MEDS ORDERED: DEXAMETHASONE SOD INJ 4 MG/ML VIAL ONE (17:29)
[2018-07-28] MEDS ORDERED: KETAMINE HCL INJ 50 MG/ML 10 ML VIAL ONE ×2 (17:34→18:05)
--- NOTE | 2018-07-28 17:51 | Operative Report ---
Post Operative Report Pre & Post Diagnosis Operation Date: 07/28/18 13:10 Pre-Op Diagnosis: LUMBAR SPINAL STENOSIS W/NEUROGENIC CLAUDICATION Post-Op Diagnosis: LUMBAR SPINAL STENOSIS W/NEUROGENIC CLAUDICATION Procedure Operation Date: 07/28/18 13:10 Actual Procedures p Bilateral L3-L4 and Right L4-L5 Minimally Invasive Lumbar Decompression( Bilateral) - Serafin Bishop MD, FIPP MINIMALLY INVASIVE LUMBAR DECOMPRESSION PROCEDURE PREOPERATIVE DIAGNOSIS: 1. Lumbar spinal stenosis with neurogenic claudication (ICD-10 Code: M48.062) 2. Encounter for examination for normal comparison and control in clinical research program (ICD-10 code Z00.6) PROCEDURE PERFORMED: 1. Percutaneous lumbar decompression of bilateral L3-4 and right L4-5 2. Fluoroscopic guidance 3. Multiple interlaminar epidurograms ANESTHESIA: Monitored Anesthesia Care (MAC) EBL: Minimal INDICATION: The patient has radiologically confirmed, clinically symptomatic lumbar spinal stenosis with confirmed neurogenic claudication and associated moderate to severe pain. The patients condition has progressed such that activities of daily living are limited due to pain intensity. Standing and walking have declined steadily. The patient has failed numerous conservative treatments, such as physical therapy, pharmaceutical management, and epidural steroid injections thus deemed a candidate for a lumbar decompression procedure. A thorough discussion of the risks/benefits of the procedure including infection, bleeding, damage to surrounding structures, CSF leak, spinal cord/nerve root injury, failure to relieve symptoms, increased pain, and the possible need for additional procedures to treat complications occurred in the office and immediately prior the procedure in the pre-operative area. The patient agrees to proceed acknowledging the risks and benefits of the procedure. Signed consent was obtained. The patients history and physical was reviewed and any interim changes were noted in the medical record. No signs or symptoms of infection were present at sites of trocar insertions. Then, a peripheral intravenous line was started and preoperative antibiotics were administered prior to the start of the procedure. Fluoroscopy was utilized during the procedure with ALARA techniques. PROCEDURE: The patient was placed in the prone position in the operating room suite with pillows under the hips to assist with lordosis of the lumbar spine. Anesthesia was administered per anesthetic record. Next, the thoracolumbar spine was prepped with duraprep and betadine swabs. Complete drying of the sterile prep took place prior to full sterile draping and ioban placement. Next, the spinous processes and medial border of the pedicles were identified under fluoroscopy and marked. Epidurograms were performed under fluoroscopic guidance at the appropriate operative level utilizing 1% lidocaine for skin anesthesia and loss of resistance with saline via a 17gauge Tuohy needle. Approximately 2-3ml of Isovue 300 was injected revealing decreased contrast flow at and past the levels of concern. The C-arm was then rotated to the contralateral oblique view and the epidurogram indicated severe lumbar spinal stenosis as noted by decreased contrast flow. Following administration of 1% lidocaine via a 22gauge spinal needle, a small incision was made with an 11 blade scalpel at the level of the lamina approximately one level below the area of concern. Then a portal trocar was inserted percutaneously under fluoroscopic guidance to contact the indicated lamina. A portal stabilizing device and depth guide was applied to the portal cannula after trocar removal. Next, the bone-sculpting rongeur was inserted to remove adequate amounts of lamina (laminotomy) from the superior surface of the inferior operative lamina site and to the inferior aspect of the lamina above. This laminotomy facilitated passage of the portal cannula to an adequate depth. Next the tissue sculpting tool was inserted to remove the dorsal portion of the hypertrophied ligamentum flavum ensuring decompression of the epidural space. Repeat epidurogram, showed improved contrast spread at and cephalad/caudad to the operative site. The same procedure was repeated at the additional sites as noted above. Repeat epidurograms were performed as necessary throughout the procedure, to ensure that the bone sculpting rongeur and tissue sculpting tool did not breach the epidural space. The final epidurogram revealed adequate decompression of the lamina and adjacent ligamentum flavum, as evidenced by increased flow through the epidural space. At the end of the procedure dexamethasone 5 mg preservative-free was injected through the Touhy epidural needle. The needle was re-styletted and removed intact. At the end of the procedure, all tools were removed. Hemostasis was achieved by direct pressure and closures were made with steri-strips and benzoin. 4x4 gauze and tegaderms were applied. The patient tolerated the procedure well, was transferred to the stretcher, and escorted to the recovery room in stable condition. In the recovery room, the patient was able to move their toes, feet, knees, and hips with no new loss of sensation in the lower extremities. Vital signs remained stable. The patient was admitted for 23-hour observation after the procedure due to pain control measures. The patient be seen at the [facility] office within two weeks for further evaluation and care. Surgeon Serafin Bishop MD Line [employer] Superintendent Dr. Kellee Fields Estimated Blood Loss 20 Findings Consistent with Post-Op Diagnosis Specimens None Drains None Anesthesia Type MAC Complications none Disposition Accompanied Patient To Recovery: No Disposition: Recovery Room Description of Procedure See above I attest to the content of the Intraoperative Record and any orders documented therein. Any exceptions are noted below.
[2018-07-28] MEDS ORDERED: HYDROmorphone INJ 0.5 MG/0.5 ML SYR IV PRN (17:54)
[2018-07-28] MEDS ORDERED: NALOXONE HCL 0.4 MG/1 ML VIAL/CARP IV PRN (17:54)
[2018-07-28] MEDS ORDERED: ACETAMINOPHEN 500 MG TAB PO PRN (17:54)
[2018-07-28] MEDS ORDERED: ONDANSETRON INJ 2 MG/ML 2 ML VIAL IV PRN (17:54)
[2018-07-28] MEDS ORDERED: MAGNESIUM CITRATE 296 ML/BTL PO PRN (17:54)
[2018-07-28] MEDS ORDERED: ALBUTEROL 0.083% NEBU SOLN 3 ML VIAL INH PRN (18:00)
[2018-07-28] MEDS ORDERED: PHARMACY GLYCEMIC MGMT CONSULT PRN (18:40)
--- NOTE | 2018-07-28 18:47 | Anesthesiology Progress Note ---
Date of Service July 28, 2018 Anesthesia Post Procedure Vital Signs Vital Signs: Temp Pulse Pulse Resp BP BP Pulse Ox 07/28/18 18:30 36.2 C L 90 13 135/76 93 07/28/18 18:20 57 L 15 109/61 93 07/28/18 18:10 94 H 12 122/82 92 07/28/18 18:00 98 H 17 140/77 96 07/28/18 17:50 36.4 C L 103 H 15 156/83 H 94 07/28/18 13:38 36.6 C 97 H 20 172/98 H 95 Pain Intensity Lower Back: Pain Intensity: 0 Notes Mental Status: alert / awake / arousable and participated in evaluation Nausea / Vomiting: adequately controlled Pain: see Notes below Airway Patency, RR, SpO2: stable & adequate BP & HR: stable & adequate Hydration State: stable & adequate Anesthetic Complications: no major complications apparent and Pt Satisfied with anesthetic care Notes: Pt with 9/10 pain in PACU, but very somnolent - no longer appropriate to give additional pain medicine. Pt to go to telemetry overnight with continuous pulse oximetry.
[2018-07-28] MEDS ORDERED: GLUCOSE 40% GEL 15 GM TUBE PO PRN ×2 (19:27→19:42)
[2018-07-28] MEDS ORDERED: GLUCAGON FOR INJ 1 MG VIAL IM PRN (19:27)
[2018-07-28] MEDS ORDERED: GLUCOSE 10 TABS/TUBE PO PRN ×2 (19:27→19:42)
[2018-07-28] MEDS ORDERED: DEXTROSE 50% 50 ML SYRINGE IV PRN ×2 (19:27→19:42)
[2018-07-28] MEDS ORDERED: CARBOHYDRATES FOR HYPOGLYCEMIA PO PRN ×2 (19:27→19:42)
[2018-07-28] MEDS ORDERED: GLUCAGON FOR INJ 1 MG VIAL SQ PRN (19:42)
[2018-07-28] MEDS ORDERED: DC ALL PREVIOUSLY ORDERED DIABETES MEDS ONE (19:45)
--- NOTE | 2018-07-28 20:06 | Pharmacy Report ---
PHA: Glycemic Control AP - Date of Service July 28, 2018 - Assessment & Plan Laboratory Tests 07/16/18 07/28/18 07/28/18 14:22 13:30 17:57 POC Glucose 99 144 H Hemoglobin A1c 6.8 H Reported Home Meds: * metformin 1g po BID * glimepiride 4mg po BID PLAN: * D/C home diabetes regimen * Give Basal:Bolus with this ADM. * Basal insulin: Lantus 12 units every 12 hours * Correctional Insulin: Novolog Correction per scale ACHS Goal Range: Low 120 mg/dL - High 160 mg/dL Correction Factor: 25 mg/dL/unit * Prandial insulin: Per carb ratio of 1 unit per 9 grams CHO consumed Pharmacy will continue to monitor patient daily and write orders per [facility] inpatient glycemic control protocol. Thanks. * Please note that the plan above was derived based on current level of insulin resistance and hospital stress. These recommendations are appropriate for inpatient admission only. Plan of care upon discharge will need to be reassessed to avoid potential outpatient hypo/hyperglycemia.
[2018-07-28] MEDS: GABAPENTIN 300 MG CAP PO SCH (20:24)
[2018-07-28] MEDS: DOCUSATE SODIUM 100 MG CAP PO SCH (20:25)
[2018-07-28] MEDS: INSULIN GLARGINE SOLOSTAR 100 UNITS/ML 3 ML PEN SC SCH (20:33)
[2018-07-28] MEDS: INSULIN ASPART 100 UNITS/ML 3 ML PEN SC SCH (20:35)
[2018-07-28] MEDS ORDERED: GLIMEPIRIDE 2 MG TAB PO SCH (21:00)
[2018-07-28] MEDS ORDERED: AMITRIPTYLINE HCL 25 MG TAB PO SCH (21:00)
[2018-07-28] MEDS ORDERED: METFORMIN 1000 MG PO SCH (21:00)
[2018-07-29] MEDS: OXYCODONE HCL IR 5 MG TAB (IMMEDIATE RELEASE) PO PRN ×2 (04:00→08:08)
--- NOTE | 2018-07-29 07:36 | Anesthesiology Progress Note ---
Date of Service July 29, 2018 Anesthesia Post Procedure Vital Signs Vital Signs: Temp Pulse Pulse Resp BP BP Pulse Ox 07/29/18 07:11 36.4 C L 87 17 145/78 H 97 07/29/18 03:00 36.6 C 83 18 155/78 H 94 07/28/18 23:21 36.6 C 90 18 126/71 94 07/28/18 22:27 36.5 C 85 18 125/66 92 07/28/18 21:20 36.4 C L 73 18 111/65 95 07/28/18 20:20 36.4 C L 87 18 122/69 95 07/28/18 19:20 36.9 C 102 H 16 147/79 H 98 07/28/18 19:00 95 H 14 120/66 94 07/28/18 18:50 93 H 13 120/66 94 07/28/18 18:40 94 H 14 135/79 95 07/28/18 18:30 36.2 C L 90 13 135/76 93 07/28/18 18:20 57 L 15 109/61 93 07/28/18 18:10 94 H 12 122/82 92 07/28/18 18:00 98 H 17 140/77 96 07/28/18 17:50 36.4 C L 103 H 15 156/83 H 94 07/28/18 13:38 36.6 C 97 H 20 172/98 H 95 Pain Intensity Lower Back: Pain Intensity: 0 Notes Mental Status: alert / awake / arousable and participated in evaluation Patient Amnestic to Procedure: Yes Nausea / Vomiting: adequately controlled Pain: adequately controlled Airway Patency, RR, SpO2: stable & adequate BP & HR: stable & adequate Hydration State: stable & adequate Anesthetic Complications: no major complications apparent and Pt Satisfied with anesthetic care
--- NOTE | 2018-07-29 07:54 | Pain Management Progress Note ---
Date of Service July 29, 2018 Assessment & Plan (1) Neurogenic claudication due to lumbar spinal stenosis: 1. MILD (Minimally Invasive Lumbar Decompression) Bilateral L3-4 and right L4-5 procedure completed yesterday. Patient without increase or decrease in symptoms at this time. We discussed expectations. 2. Continue with home dosing of Percocet 5/325 mg QID. 3. Report any increased lower extremity pain or parasthesia. 4. Limitations of home lifting for 2 weeks 5. Return to office in 1 week for evaluation or before as needed 6. Patient will be discharged to home. Subjective Patient POD #1 s/p MILD procedure bilateral L3-4 and right L4-5 levels. Patient reporting that her pain is at her baseline, not improved or worse since the time of the procedure. She continues with axial low back pain and right greater than left lower extremity pain. Patient has been out of bed to the bathroom without complications. Pain ranging between 3-6/10. She denies weaknesses in lower extremities, numbness, tingling or bowel/bladder incontinence. Patient has no further constitutional complaints. Plan of care discussed with Dr. Bishop. Pain Assessment Pain Assessment Full Body Front + Back: 1. Axial lumbosacral pain 2. Right lower extremity non-dermatomal pain 3. Left lower extremity non-dermatomal pain Pain scale - at its best (0-10): 3 Pain scale - at its worst (0-10): 6 Physical Exam Vital Signs (Past 24 Hours): Last Vital Signs Temp 36.4 C L 07/29/18 07:11 Pulse 87 07/29/18 07:11 Resp 17 07/29/18 07:11 BP 145/78 H 07/29/18 07:11 Pulse Ox 97 07/29/18 07:11 Physical Exam: General: Patient lying quietly in the exam room in no acute distress. Awake, alert and oriented to time, person and place. Speech and thought process normal. Back/spine: Bandages removed for visual inspection. Minimal bloody discharge present on bandage. No active drainage. Steri-strips in place. Bandage replaced. Mild generalized tenderness to palpation which remains non-focal to midline, facet joints, or SI joints. Lower extremities: Strength 5/5 with dorsiflexion, plantar flexion on right and 4/5 on left--baseline finding. Sensation diminished to sharp and dull distal lower extremities non-dermatomal pattern--baseline finding. Neurological: Cranial nerves grossly intact. Ambulation not witnessed.
[2018-07-29] MEDS: LOSARTAN/HCTZ 50/12.5MG TAB PO SCH ×2 (08:06→08:16)
[2018-07-29] MEDS: GABAPENTIN 300 MG CAP PO SCH (08:07)
[2018-07-29] MEDS: DOCUSATE SODIUM 100 MG CAP PO SCH (08:08)
[2018-07-29] MEDS: INSULIN ASPART 100 UNITS/ML 3 ML PEN SC SCH (08:22)
[2018-07-29] MEDS: INSULIN GLARGINE SOLOSTAR 100 UNITS/ML 3 ML PEN SC SCH (08:23)
[2018-07-29] MEDS ORDERED: PANTOprazole 40 MG TAB PO SCH (09:00)
[2018-07-29] MEDS ORDERED: DULOXETINE HCL 30 MG CAP PO SCH (09:00)
[2018-07-29] MEDS ORDERED: LOSARTAN POTASSIUM 50 MG TAB PO SCH ×2 (09:00)
[2018-07-29] MEDS ORDERED: AMLODIPINE BESYLATE 5 MG TAB PO SCH (09:00)
[2018-07-29] MEDS ORDERED: ATORVASTATIN 40 MG TAB PO SCH (09:00)
[2018-07-29] MEDS ORDERED: DULOXETINE HCL 60 MG CAP PO SCH (09:00)
--- NOTE | 2018-07-31 09:25 | Discharge Summary ---
Date of Service July 31, 2018 Admission HPI Per Admitting Provider This is a 68 year old white female that is well known to the [facility] with a significant history of lumbar stenosis. Patient does describe a deep aching in the low back as well as cramping in right lateral aspect of the leg to the mid-calf. There is weakness and paresthesias in both legs. Symptoms are aggravated with walking and relieved with sitting. Patient is only able to walk for about 5-10 minutes and then needs to sit down to relieve the pain. She reports significant limitation into performing her daily activities. Patient rates her pain 6/10 at its best and 10/10 at its worst. She is prescribed Percocet 5/325 mg 4 times daily which is moderately efficacious towards diminishing her pain. Patient denies any bowel/bladder incontinence, saddle anesthesia, foot drop, falls. Admission Exam (Per Admitting) Constitutional GENERAL: This is a 68 year old white female appears her stated age. She is obese and physically deconditioned. Speech and cognition is intact. Mood and affect is appropriate. In no acute distress. HEAD: Normocephalic; atraumatic. EYES: Pupils are round, equal, and reactive to light; EOM intact. ENT: No external ear discharge or lesions. No rhinorrhea or epistaxis. No mucosal lesions. NECK: Full ROM; trachea is midline; no TTP; no cervical lymphadenopathy. CARDIO: Regular rate and rhythm. No murmurs, rubs, or gallops. PULM: Clear to auscultation. No wheezes, rales, or rhonchi. CHEST: Regular chest respiration and excursion. EXTREMITIES: There is 5/5 strength of the bilateral lower extremities. Negative straight leg raise bilaterally. No foot drop. Tenderness along the right greater trochanteric bursa. BACK: Complete loss of lumbar lordosis. Decreased ROM in all planes. There is mild diffuse lumbosacral tenderness to palpation. No muscle spasm noted. Pain is increased with extension, decreased with flexion. NEURO: CN II-XII grossly intact with no focal deficits noted. Widened gait. SKIN: No lesions, erythema, or rashes noted. Discharge Data Procedures Performed Operation Date: 07/28/18 13:10 Actual Procedures p left L3-L4 and bilateral L4-L5 Minimally Invasive Lumbar Decompression(Bilateral) - Serafin Bishop MD, FIPP Hospital Course (1) Intractable neuropathic pain of lower extremity: (2) Lumbar spondylosis: (3) Lumbar spinal stenosis: (4) Neurogenic claudication due to lumbar spinal stenosis: The patient was admitted for a minimally invasive lumbar decompression of bilateral L4-5 and left L3-4 levels. She was admitted for pain control overnight and for neurologic checks. She is reporting that her pain is at her baseline, not improved or worse since the time of the procedure. She continues with axial low back pain and right greater than left lower extremity pain. Patient has been out of bed to the bathroom without complications. Pain ranging between 3-6/10. She denies weaknesses in lower extremities, numbness, tingling or bowel/bladder incontinence. Patient has no further constitutional complaints and will be discharged home in stable condition with her . She will follow-up in the [facility] pain management office within the next week for further evaluation and care. Discharge Instructions See discharge instruction sheet
== END 2018-07-29 11:15 | disposition home or self-care (01) ==
LOC: 2S 13:03 → ASU 13:03

== ENCOUNTER 2018-11-30 19:40 | Inpatient (IN) ==
[2018-11-30] MEDS ORDERED: SODIUM CHLORIDE 0.9% 1000ML 500 ML IV ONE (20:27)
[2018-11-30] MEDS ORDERED: ONDANSETRON INJ 2 MG/ML 2 ML VIAL IV STA (20:27)
[2018-11-30] MEDS ORDERED: MoRPHine SULFATE 4 MG/ML 1 ML CARP\\VIAL IV STA (20:27)
[2018-11-30 20:50] LABS: Hematocrit (blood only) 37.8 % (37-47); Hemoglobin 11.9 g/dL (12.0-16.0); Mean Corpuscular Hgb Conc 31.5 g/dL (32-36); Mean Corpuscular Volume 82.5 fL (80-100); Mean Platelet Volume 10.4 fL (7.4-10.4); Platelet Count 283 K/uL (130-400); RDW Coefficient of Variation 18.7 % (11.5-14.5); RDW Standard Deviation 56.2 fL (36.4-46.3); Red Blood Count 4.58 M/uL (4.2-5.4); White Blood Count 8.99 K/uL (4.8-10.8)
[2018-11-30 21:19] LABS: BUN Creatinine Ratio 13.5 (10-20); Calcium 9.3 mg/dl (8.5-10.1); Creatinine Clr Calc Pharmacy 74.8 ml/min; Est GFR (African American) 90.4
--- NOTE | 2018-11-30 21:39 | CT Scan Report ---
CT OF THE CHEST WITHOUT IV CONTRAST CLINICAL HISTORY: right post rib pain, fall COMPARISON STUDY: Chest CT October 14, 2018. TECHNIQUE: Axial images of the chest were obtained without IV contrast. Images were reviewed in the axial, sagittal, and coronal planes. IV contrast was not administered for this examination. Automat ed exposure control was utilized for the study. A dose lowering technique was utilized adhering to t he principles of ALARA. FINDINGS: Evaluation of the chest is suboptimal on this unenhanced exam. The heart is mildly enlarge d. There is no mediastinal hematoma. No pneumothorax or pulmonary contusion is noted. There are mild groundglass opacities within lungs with mosaic attenuation. Central airways are patent. No acute rib fractures identified. Note is made of an acute minimally displaced fracture of the right transverse p rocess of T10. Multilevel degenerative changes within the thoracic spine are noted. These are subopti homa assessed by CT. The CT of the thoracic spine will be reported separately. IMPRESSION: 1. Acute minimally displaced fracture of the right transverse process of T10. No additional acute tra umatic findings within the chest. 2. Groundglass opacities with mild mosaic attenuation within lungs which may reflect air trapping. 3. No pneumothorax. Electronically signed by: Nir Jerome M.D. 11/30/2018 9:38 PM
--- NOTE | 2018-11-30 21:41 | CT Scan Report ---
Thoracic CT OF THE THORACIC SPINE CLINICAL HISTORY: back pain, fall COMPARISON STUDY: Chest CT October 14, 2018. TECHNIQUE: Helical axial images of the thoracic spine were obtained. Sagittal and coronal reconstru ctions were viewed. Automated exposure control was utilized for the study. A dose lowering techniqu e was utilized adhering to the principles of ALARA. FINDINGS: Alignment of the thoracic spine is anatomic. Note is made of an acute minimally displaced f racture of the right transverse process of T10. No additional thoracic spine fractures are noted. Sev ere multilevel disc space narrowing with osteophytosis and facet arthrosis is noted. The central cesar l and neural foramen are suboptimally assessed by CT. IMPRESSION: 1. Acute minimally displaced fracture of the right transverse process of T10. No additional acute tho racic spine fracture. 2. Severe multilevel disc space narrowing with extensive osteophytosis and facet arthrosis of the tho racic spine. Suboptimal evaluation of the central canal and neural foramen given CT technique. Electronically signed by: Nir Jerome M.D. 11/30/2018 9:40 PM
--- NOTE | 2018-11-30 21:49 | CT Scan Report ---
CT OF THE ABDOMEN AND PELVIS WITHOUT CONTRAST CLINICAL HISTORY: fall, right flank pain, check for renal trauma COMPARISON STUDY: CT of the abdomen and pelvis March 26, 2012. TECHNIQUE: Axial images of the abdomen and pelvis were obtained without IV contrast. Images were revi ewed in the axial, sagittal, and coronal planes. Automated exposure control was utilized for the quinn dy. A dose lowering technique was utilized adhering to the principles of ALARA. FINDINGS: Evaluation of the abdomen and pelvis is suboptimal as unenhanced exam. Unenhanced images of the liver, spleen, adrenal glands and pancreas are unremarkable. There is no hydronephrosis. No hemo peritoneum or pneumoperitoneum is present. No acute pelvic fractures identified. The lumbar spine aleksandra l be reported separately. Postoperative findings are noted with an old L2 compression fracture. Note is made of an acute minimally displaced fracture of the right transverse process of T10. There is a p ossible acute nondisplaced fracture of the posterior right 10th rib. IMPRESSION: 1. No evidence of traumatic injury to the solid abdominal viscera on this unenhanced exam. 2. Acute minimally displaced fracture of the right transverse process of T10 with possible acute nond isplaced fracture of the posterior right 10th rib. 3. Postoperative and post traumatic findings within the lumbar spine which are better depicted on the lumbar spine CT. Please see that report for further description. Electronically signed by: Nir Jerome M.D. 11/30/2018 9:48 PM
--- NOTE | 2018-11-30 21:53 | CT Scan Report ---
CT OF THE LUMBAR SPINE CLINICAL HISTORY: back pain, fall, had surgery COMPARISON STUDY: Lumbar spine CT September 28, 2018. TECHNIQUE: Helical axial images of the lumbar spine were obtained. Sagittal and coronal reconstruct ions were viewed. Automated exposure control was utilized for the study. A dose lowering technique was utilized adhering to the principles of ALARA. FINDINGS: For purposes of numbering on this exam, the L5-S1 disc space is assigned to axial image 280 of 374. Note is made of moderate levoscoliosis of the lumbar spine which is unchanged since CT of Ap 2018. An old severe L2 compression fracture with fragmentation is similar in appearance to ex am of September 28, 2018. The patient is status post a posterior decompression with bilateral pedicle scr ew fusion from L2 through L5. Lucency surrounding the L2 pedicle screws is unchanged. Discectomy at t he L2-L3 and L3-L4 levels is noted. The central canal and neural foramen are suboptimally assessed by CT. There is no acute lumbar spine fracture. Severe multilevel degenerative changes are present. The sacroiliac joints are intact. The CT of the abdomen and pelvis will be reported separately. IMPRESSION: 1. No acute lumbar spine fracture or subluxation. 2. Postoperative findings within the lumbar spine consistent with a posterior decompression with L2-L 5 bilateral pedicle screw fusion. Unchanged postoperative appearance since CT of September 28, 2018 with old severe L2 compression fracture and lucency surrounding the L2 pedicle screws which extend into th e L1-L2 disc space. 3. Suboptimal evaluation of the central canal and neural foramen given CT technique. Electronically signed by: Nir Jerome M.D. 11/30/2018 9:52 PM
--- NOTE | 2018-11-30 23:51 | Emergency Department Note ---
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 led to some pain and difficulty breathing and some mild hypoxia. She does require a hospital stay. I spoke to the patient and major case detective. The on- call hospitalist was consulted. Impression & Plan Hypoxia, Fracture of transverse process of thoracic vertebra, Fracture, rib, Fall Discharge Plan Visit Data *Final* Discharge Date/Time: 12/01/18 01:30 Chief Complaint: Fall Stated Complaint: BACK PAIN FROM FALL ED Provider: Amor Rios Discharge Problem: Hypoxia, Fracture of transverse process of thoracic vertebra, Fracture, rib, Fall Patient Disposition: Admitted As Inpatient Discharge Instructions Interventions: ED Discharge Assessment Last Done: 12/01/18 01:30 Discharge Problem: Fracture of transverse process of thoracic vertebra Qualifiers: Encounter type: initial encounter Fracture type: closed Qualified Code(s): S22.009A - Unspecified fracture of unspecified thoracic vertebra, initial encounter for closed fracture Fracture, rib Qualifiers: Encounter type: initial encounter Rib fracture type: single rib Fracture type: closed Laterality: right Qualified Code(s): S22.31XA - Fracture of one rib, right side, initial encounter for closed fracture Fall Qualifiers: Encounter type: initial encounter Qualified Code(s): W19.XXXA - Unspecified fall, initial encounter The belenibe's documentation has been prepared under my direction and personally reviewed by me in its entirety. I confirm that the note above accurately reflects all work, treatment, procedures, and medical decision making performed by me.
[2018-12-01] MEDS ORDERED: DEXTROSE 50% 50 ML SYRINGE IV PRN (01:46)
[2018-12-01] MEDS ORDERED: GLUCAGON FOR INJ 1 MG VIAL SQ PRN (01:46)
[2018-12-01] MEDS ORDERED: GLUCOSE 10 TABS/TUBE PO PRN (01:46)
[2018-12-01] MEDS ORDERED: CARBOHYDRATES FOR HYPOGLYCEMIA PO PRN (01:46)
[2018-12-01] MEDS ORDERED: GLUCOSE 40% GEL 15 GM TUBE PO PRN (01:46)
--- NOTE | 2018-12-01 04:03 | History & Physical Report ---
Date of Service December 01, 2018 Assessment & Plan (1) Fracture of transverse process of thoracic vertebra: Traumatic fracture of T10 transverse process after mechanical fall at home. Pain is well controlled at present -Continue Percocet PRN -Lidoderm patch -Heat PRN -Orthopedic surgery consult - appreciate assistance with this case Present on Admission?: Yes (2) Fall: Patient reports falling asleep standing up. Has had multiple falls since her lumbar surgery in July. She presently has PT coming to the home twice a week. States that she has not regained much strength in her legs with PT. -Fall precautions -Continue home PT/OT (3) Weakness of lower extremity: Patient with weakness of bilateral LE as well as diminished sensation to light touch. She also reports urinary incontinence of late. ?cauda equina. She had abnormal epidural collection from L3-L5 consistent with epidural abscess vs hematoma noted on MRI from 08/04/18 -Obtain records from [facility] -MRI L spine -Neuro checks -Fall precautions Present on Admission?: Yes (4) Diabetes: Patient well managed on oral agents, Metformin and Glimepiride. Last AIC=6.8 from 07/16/18 -Hold oral agents -ISS -CC diet as tolerated -Continue to monitor Present on Admission?: Yes (5) Intractable neuropathic pain of lower extremity: Chronic. -Continue Amitryptyline, Gabapentin, Cymbalta -Ortho consult as above -MRI as above (6) Major depressive disorder: Chronic -Continue Duloxetine Present on Admission?: Yes (7) Sleep apnea: Patient reports being diagnosed with HERIBERTO. She has a CPAP machine at home but rarely uses it. HERIBERTO may explain transient episode of hypoxia witnessed in ER after administration of Morphine -Encourage CPAP compliance. Discussed briefly the importance of using CPAP as prescribed and overall benefits Present on Admission?: Yes (8) Hypertension: Blood pressure well controlled at present -Continue Losartan/HCTZ -Continue Amlodipine -Continue to monitor Present on Admission?: Yes (9) Hyperlipidemia: Chornic. Stable -Continue Atorvastatin History of Present Illness Chief Complaint: Fall, back pain Primary Care Provider: Elda Ng 68yo C female with history of DM, HTN, HLP, Depression/Anxiety presenting after a fall at home. Patient reports acute worsening of her restless leg syndrome over the last two weeks. She has been unable to sleep for more than 2 hours at a time due to her symptoms. Yesterday she was in her kitchen when she fell asleep standing up. She subsequently fell backwards and hit the back of her head and her right flank on a cupboard. Since then she has had burning pain from her right flank to her abdomen, 8/10 in severity. Patient has had two back surgeries performed at [facility], most recently on August 18, 2018. Since her most recent surgery she has had two prior falls. She reports chronic numbness in her bilateral legs, R > L and severe weakness and clumsiness of her right leg. She also reports some urinary incontinence. No fecal incontinence. ER Course: Morphine, Zofran, NSS, O2 sats to 80% after Morphine Allergies Allergy/AdvReac Type Severity Reaction Status Date / Time cefuroxime AdvReac Mild upset Verified 11/17/18 11:07 stomach Home Medications Home Medications Medication Instructions Recorded Confirmed Type amitriptyline 25 mg tablet 25 mg PO QPM 02/09/18 11/30/18 History amlodipine 5 mg tablet 5 mg PO QAM 02/09/18 11/30/18 History aspirin 81 mg tablet,delayed 81 mg PO DAILY 02/09/18 11/30/18 History release atorvastatin 40 mg tablet 40 mg PO DAILY 02/09/18 11/30/18 History cholecalciferol (vitamin D3) 1,000 1,000 units PO QAM 02/09/18 11/30/18 History unit capsule duloxetine 60 mg capsule,delayed 60 mg PO QAM 02/09/18 11/30/18 History release gabapentin 300 mg capsule 900 mg PO TID cap 02/09/18 11/30/18 History losartan 100 1 tab PO QAM tab 02/09/18 11/30/18 History mg-hydrochlorothiazide 12.5 mg tablet metformin ER 1,000 mg 1,000 mg PO BID tab 02/09/18 11/30/18 History tablet,extended release 24hr omeprazole magnesium 20 mg 20 mg PO QAM 02/09/18 11/30/18 History tablet,delayed release duloxetine 30 mg capsule,delayed 30 mg PO QAM 05/22/18 11/30/18 History release glimepiride 4 mg tablet 4 mg PO QAM 10/06/18 11/30/18 History oxycodone-acetaminophen 5 mg-325 0.5 tab PO Q6H PRN tab 11/03/18 11/30/18 History mg tablet Past Med/Surg History Social History Preferred Language: Uzbek Communication Ability: Effective Visual Impairment: Limited Hearing Ability: Normal 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 Beliefs That Will Affect Care: None marital status: Current Living Situation: Spouse current occupational status: retired Other Information That Helps Us Care for You: No Feels Safe at Home: Yes Safety Concerns: Feels Safe At This Time Smoking Status: Never smoker Do You Dip or Chew Tobacco: No Second Hand Exposure: No Tobacco Cessation Education Requested by Patient: No Hx Alcohol Use: No Hx Substance Use: No Review of Systems Review of Systems: All systems reviewed & are unremarkable except as noted in HPI & below Physical Exam Physical Exam: General: patient resting comfortably, NAD, non-toxic in appearance, AA&O x 4 Skin: warm, dry, intact, no rashes or lesions HEENT: NC/AT, PERRL, EOMI, anicteric sclera, conjunctiva without injection, external ear normal to inspection and nontender, nares patent, dry mucus membranes, dentition intact, no oropharyngeal lesions, neck supple, trachea midline, no LAD, no thyromegaly, no JVD Heart: +S1/S2, regular, no m/r/g Lungs: equal air entry bilaterally, no rales/rhonchi/wheezes Abd: +BS, soft, NT/ND, no masses/organomegaly/ascites, warmth and tenderness of right paraspinal musculature Ext: warm, 2+ pulses in UE/LE bilaterally, no clubbing/cyanosis or edema Neuro: nonfocal, patient AA&O x 4, speech intact, no facial droop, moving all extremities on command, diminished sensation to light touch on bilateral LE from knees to feet, R>L, diminished MS in bilateral LE 3/5 Results & Data Vital Signs (Past 12 Hours) Vital Signs Temp Pulse Pulse Pulse Resp BP BP 12/01/18 01:40 36.5 C 68 16 121/74 12/01/18 01:27 76 20 127/72 12/01/18 00:21 68 20 105/61 11/30/18 22:38 11/30/18 22:30 69 24 109/62 11/30/18 22:06 11/30/18 21:25 75 19 109/57 L 11/30/18 20:03 36.6 C 83 20 126/82 Pulse Ox 12/01/18 01:40 98 12/01/18 01:27 95 12/01/18 00:21 95 11/30/18 22:38 97 11/30/18 22:30 84 L 11/30/18 22:06 96 11/30/18 21:25 11/30/18 20:03 95 Laboratory Results Lab Results 11/30/18 11/30/18 Range/Units 20:40 20:40 WBC 8.99 (4.8-10.8) K/uL RBC 4.58 (4.2-5.4) M/uL Hgb 11.9 L (12.0-16.0) g/dL Hct 37.8 (37-47) % MCV 82.5 (80-100) fL MCH 26.0 (25-34) pg MCHC 31.5 L (32-36) g/dL RDW Std Deviation 56.2 H (36.4-46.3) fL RDW Coeff of Manas 18.7 H (11.5-14.5) % Plt Count 283 (130-400) K/uL MPV 10.4 (7.4-10.4) fL Sodium 137 (136-145) mmol/L Potassium (3.5-5.1) mmol/L Chloride 102 (98-107) mmol/L Carbon Dioxide 25 (21-32) mmol/L Anion Gap 9.0 (3-11) BUN 11 (7-18) mg/dl Creatinine 0.79 (0.6-1.2) mg/dl Est Cr Clr Drug Dosing 74.8 ml/min Est GFR ( Amer) 90.4 Est GFR (Non-Af Amer) 78.0 BUN/Creatinine Ratio 13.5 (10-20) Glucose 125 H (70-99) mg/dl Calcium 9.3 (8.5-10.1) mg/dl Diagnostic Findings CT OF THE ABDOMEN AND PELVIS WITHOUT CONTRAST CLINICAL HISTORY: fall, right flank pain, check for renal trauma COMPARISON STUDY: CT of the abdomen and pelvis March 26, 2012. TECHNIQUE: Axial images of the abdomen and pelvis were obtained without IV contrast. Images were reviewed in the axial, sagittal, and coronal planes. Automated exposure control was utilized for the study. A dose lowering technique was utilized adhering to the principles of ALARA. FINDINGS: Evaluation of the abdomen and pelvis is suboptimal as unenhanced exam. Unenhanced images of the liver, spleen, adrenal glands and pancreas are un remarkable. There is no hydronephrosis. No hemoperitoneum or pneumoperitoneum is present. No acute pelvic fractures identified. The lumbar spine will be reported separately. Postoperative findings are noted with an old L2 compression fracture. Note is made of an acute minimally displaced fracture of the right transverse process of T10. There is a possible acute nondisplaced fracture of the posterior right 10th rib. IMPRESSION: 1. No evidence of traumatic injury to the solid abdominal viscera on this unenhanced exam. 2. Acute minimally displaced fracture of the right transverse process of T10 with possible acute nondisplaced fracture of the posterior right 10th rib. 3. Postoperative and post traumatic findings within the lumbar spine which are better depicted on the lumbar spine CT. Please see that report for further description. Electronically signed by: Nir Jerome M.D. 11/30/2018 9:48 PM Dictated: 11/30/182139 Transcribed: 11/30/182139 ############################## ################################################################################ ########################################### CT OF THE CHEST WITHOUT IV CONTRAST CLINICAL HISTORY: right post rib pain, fall COMPARISON STUDY: Chest CT October 14, 2018. TECHNIQUE: Axial images of the chest were obtained without IV contrast. Images were reviewed in the axial, sagittal, and coronal planes. IV contrast was not administered for this examination. Automated exposure control was utilized for the study. A dose lowering technique was utilized adhering to the principles of ALARA. FINDINGS: Evaluation of the chest is suboptimal on this unenhanced exam. The heart is mildly enlarged. There is no mediastinal hematoma. No pneumothorax or pulmonary contusion is noted. There are mild groundglass opacities within lungs with mosaic attenuation. Central airways are patent. No acute rib fractures identified. Note is made of an acute minimally displaced fracture of the right transverse process of T10. Multilevel degenerative changes within the thoracic spine are noted. These are suboptimally assessed by CT. The CT of the thoracic spine will be reported separately. IMPRESSION: 1. Acute minimally displaced fracture of the right transverse process of T10. No additional acute traumatic findings within the chest. 2. Groundglass opacities with mild mosaic attenuation within lungs which may reflect air trapping. 3. No pneumothorax. Electronically signed by: Nir Jerome M.D. 11/30/2018 9:38 PM Dictated: 11/30/182130 Transcribed: 11/30/182130 ######################################### ################################################################################ ################################ CT OF THE LUMBAR SPINE CLINICAL HISTORY: back pain, fall, had surgery COMPARISON STUDY: Lumbar spine CT September 28, 2018. TECHNIQUE: Helical axial images of the lumbar spine were obtained. Sagittal and coronal reconstructions were viewed. Automated exposure control was utilized for the study. A dose lowering technique was utilized adhering to the principles of ALARA. FINDINGS: For purposes of numbering on this exam, the L5-S1 disc space is assigned to axial image 280 of 374. Note is made of moderate levoscoliosis of the lumbar spine which is unchanged since CT of September 28, 2018. An old severe L2 compression fracture with fragmentation is similar in appearance to exam of September 28, 2018. The patient is status post a posterior decompression with bilateral pedicle screw fusion from L2 through L5. Lucency surrounding the L2 pedicle screws is unchanged. Discectomy at the L2-L3 and L3-L4 levels is noted. The central canal and neural foramen are suboptimally assessed by CT. There is no acute lumbar spine fracture. Severe multilevel degenerative changes are present. The sacroiliac joints are intact. The CT of the abdomen and pelvis will be reported separately. IMPRESSION: 1. No acute lumbar spine fracture or subluxation. 2. Postoperative findings within the lumbar spine consistent with a posterior decompression with L2-L5 bilateral pedicle screw fusion. Unchanged postoperative appearance since CT of September 28, 2018 with old severe L2 compression fracture and lucency surrounding the L2 pedicle screws which extend into the L1-L2 disc space. 3. Suboptimal evaluation of the central canal and neural foramen given CT technique. Electronically signed by: Nir Jerome M.D. 11/30/2018 9:52 PM Dictated: 11/30/182147 Transcribed: 11/30/182147 ################################################################################ ######################################################################### Thoracic CT OF THE THORACIC SPINE CLINICAL HISTORY: back pain, fall COMPARISON STUDY: Chest CT October 14, 2018. TECHNIQUE: Helical axial images of the thoracic spine were obtained. Sagittal and coronal reconstructions were viewed. Automated exposure control was utilized for the study. A dose lowering technique was utilized adhering to the principles of ALARA. FINDINGS: Alignment of the thoracic spine is anatomic. Note is made of an acute minimally displaced fracture of the right transverse process of T10. No additional thoracic spine fractures are noted. Severe multilevel disc space narrowing with osteophytosis and facet arthrosis is noted. The central canal and neural foramen are suboptimally assessed by CT. IMPRESSION: 1. Acute minimally displaced fracture of the right transverse process of T10. No additional acute thoracic spine fracture. 2. Severe multilevel disc space narrowing with extensive osteophytosis and facet arthrosis of the thoracic spine. Suboptimal evaluation of the central canal and neural foramen given CT technique. Electronically signed by: Nir Jerome M.D. 11/30/2018 9:40 PM Dictated: 11/30/182137 Transcribed: 11/30/182137 Code Status & VTE Plan Code Status FULL PG Care Time/CCT Total # of Minutes Spent Total Time Spent with Patient: Total time spent is greater than 50% in coordination of care (as documented) at patient's floor/unit and/or counseling patient: (1) Fracture of transverse process of thoracic vertebra Encounter type: initial encounter Fracture type: closed Qualified Code(s): S22.009A - Unspecified fracture of unspecified thoracic vertebra, initial encounter for closed fracture (2) Fall Encounter type: initial encounter Qualified Code(s): W19.XXXA - Unspecified fall, initial encounter (3) Weakness of lower extremity Laterality: bilateral Qualified Code(s): R29.898 - Other symptoms and signs involving the musculoskeletal system (4) Diabetes Diabetes mellitus type: type 2 Diabetes mellitus mcfp insulin use: without mcfp use Diabetes mellitus complication status: without complication Qualified Code(s): E11.9 - Type 2 diabetes mellitus without complications (5) Major depressive disorder Major depression recurrence: recurrent Active/Remission status: remission status unspecified Qualified Code(s): F33.9 - Major depressive disorder, recurr ent, unspecified (6) Sleep apnea Sleep apnea type: obstructive Qualified Code(s): G47.33 - Obstructive sleep apnea (adult) (pediatric) (7) Hypertension Hypertension type: essential hypertension Qualified Code(s): I10 - Essential (primary) hypertension (8) Intractable neuropathic pain of lower extremity Laterality: unspecified laterality Qualified Code(s): M79.2 - Neuralgia and neuritis, unspecified
[2018-12-01 05:53] LABS: INR 1.1 (0.9-1.1); Prothrombin Time 10.9 Seconds (9.0-12.0)
[2018-12-01] MEDS: OXYCODONE/ACETAMINOPHEN 5mg/325mg TAB PO PRN (07:45)
[2018-12-01 08:16] LABS: Hematocrit (blood only) 36.3 % (37-47); Hemoglobin 11.1 g/dL (12.0-16.0); Mean Corpuscular Hgb Conc 30.6 g/dL (32-36); Mean Corpuscular Volume 84.6 fL (80-100); Mean Platelet Volume 9.9 fL (7.4-10.4); Platelet Count 266 K/uL (130-400); RDW Coefficient of Variation 18.8 % (11.5-14.5); RDW Standard Deviation 57.2 fL (36.4-46.3); Red Blood Count 4.29 M/uL (4.2-5.4); White Blood Count 8.65 K/uL (4.8-10.8)
[2018-12-01 08:23] LABS: Est GFR (African American) 97.8; Potassium 3.5 mmol/L (3.5-5.1)
[2018-12-01 08:24] LABS: BUN Creatinine Ratio 16.8 (10-20); Creatinine Clr Calc Pharmacy 78.9 ml/min; Est GFR (Non-African American) 84.4
[2018-12-01 08:24] LABS: Appearance Urine Cloudy (Clear); Bacteria Urine Automated Negative (Negative); Bilirubin Urine Negative (Negative); Blood Urine Negative (Negative); Color Urine Yellow; Epithelial Cell Urine Auto >30 /lpf (0-5); Glucose Urine UA Negative (Negative); Ketones Urine Negative (Negative); Leukocyte Esterase Urine Negative (Negative); Nitrite Urine Negative (Negative); Protein Urine Negative (Negative); RBC Urine Automated 0-4 /hpf (0-4); Specific Gravity Urine 1.024 (1.000-1.030); Urobilinogen Urine Negative (Negative)
[2018-12-01] MEDS ORDERED: LIDOCAINE 5% 1 PATCH TD SCH (09:00)
[2018-12-01] MEDS ORDERED: PRAMIPEXOLE DIHYDROCHLO 0.5 MG TAB PO SCH (09:00)
--- NOTE | 2018-12-01 09:21 | XRay Report ---
XR lumbar spine 2-3V CLINICAL HISTORY: fracture, instability COMPARISON STUDY: CT scan dated 11/30/2018 FINDINGS: There is a lumbar levoscoliosis. There are postsurgical changes present with posterior pedi chalino screw spinal fixation. There is an L2 fracture with fragmentation. There is lucency surrounding t he L2 pedicle screws finding which may indicate loosening. IMPRESSION: 1. Levoscoliosis 2. Superior endplate L2 compression fracture 3. Lucency surrounding the L2 pedicle screws, finding which may indicate loosening Electronically signed by: Isidro Perkins M.D. 12/01/2018 9:20 AM
[2018-12-01] MEDS: INSULIN ASPART 100 UNITS/ML 3 ML PEN SC SCH ×4 (10:04→21:06)
[2018-12-01] MEDS: GABAPENTIN 300 MG CAP PO SCH ×3 (10:05→21:05)
[2018-12-01] MEDS: DULOXETINE HCL 30 MG CAP PO SCH (10:06)
[2018-12-01] MEDS: LOSARTAN POTASSIUM 50 MG TAB PO SCH (10:06)
[2018-12-01] MEDS: AMLODIPINE BESYLATE 5 MG TAB PO SCH (10:06)
[2018-12-01] MEDS: DULOXETINE HCL 60 MG CAP PO SCH (10:06)
[2018-12-01] MEDS: PANTOprazole 40 MG TAB PO SCH (10:07)
[2018-12-01] MEDS: LOSARTAN/HCTZ 50/12.5MG TAB PO SCH (10:07)
[2018-12-01] MEDS: ATORVASTATIN 40 MG TAB PO SCH (10:07)
[2018-12-01] MEDS: CHOLECALCIFEROL 1,000 UNITS TAB PO SCH (10:07)
[2018-12-01] MEDS: ENOXAPARIN INJ 40 MG/0.4 ML SYR SQ SCH (10:08)
--- NOTE | 2018-12-01 11:36 | Magnetic Resonance Report ---
MR lumbar spine wo con CLINICAL HISTORY: 68 years-old Female with ?Cauda equina. Acute low back pain status post recent fal l. COMPARISON: Lumbar spine radiographs of same day, CT lumbar spine 11/30/2018, MRI lumbar spine 08/04/2018 . TECHNIQUE: Multiplanar, multi sequence MRI of the lumbar spine was performed without intravenous cont rast. FINDINGS: Levoscoliosis. Postoperative findings within the lumbar spine redemonstrated with posterior decompres isaias with L2-L5 jaswinder and screw fusion. Remote L2 compression deformity redemonstrated. Superior endpla te edema at T10 appears unchanged from 08/04/2018. Artifact from the hardware limits evaluation of the adjacent vertebral bodies. L2 pedicle screws extend into the L1-L2 disc space. There is nonspecific m ild prevertebral edema extending from L1-L4, notably within the right psoas muscle. There is a circum scribed fluid collection within the deep subcutaneous tissues about the operative bed measuring 1.5 x 6.1 x 11.1 cm in AP, transverse and craniocaudal dimensions. Additional fluid collection is noted wi thin the posterior epidural distribution at the operative bed measuring approximately 1.9 x 4.0 x 6.8 cm in AP, transverse and craniocaudal dimensions. Bone marrow edema about the L1 vertebral body may be artifactual. T12-L1: Severe disc space narrowing with spondylitic spurring, circumferential annular disc bulge an d severe facet arthrosis. Moderate central canal narrowing with severe left and moderate right forami nal stenosis. L1-L2: Hardware at this level limits evaluation of the central canal and neuroforamina. Retropulsion from the remote L2 fracture with spondylitic spurring and severe facet arthrosis. There is a least m oderate central canal stenosis with moderate left foraminal narrowing. The right neuroforamen is not well seen. L2-L3: Central canal is patent. Right neuroforamen is not well visualized. Moderate left foraminal s tenosis. L3-L4: Grade 1 anterolisthesis. Spondylitic spurring with posterior annular disc bulge/disc space un covering. Posterior fluid collection narrows the thecal sac to 5 mm in AP dimension resulting in miller re central canal stenosis. Mild to moderate left foraminal stenosis. No significant right foraminal n arrowing identified. L4-L5: Grade 1 anterolisthesis. Spondylitic spurring with posterior disc bulge/disc space uncovering . Posterior fluid collection narrows the AP dimension of the thecal sac to 5 mm resulting in severe c entral canal stenosis. Moderate right and severe left foraminal narrowing. L5-S1: Mild spondylitic spurring with small posterior annular disc bulge and severe facet arthrosis. Flattening of the ventral thecal sac without significant central canal narrowing. Moderate right and moderate to severe left foraminal stenosis. IMPRESSION: 1. Postoperative changes of the lumbar spine at L2-L5 with posterior decompression, posterior jaswinder and screw fusion. Fluid collections are seen within the deep subcutaneous tissues and posterior epidural distribution about the operative bed suggestive of probable seromas. The fluid collection within the posterior epidural distribution results in severe central canal stenosis at L3-L4 and L4-L5. 2. Nonspecific paravertebral edema, notably within the right psoas distribution. 3. No definite acute fracture or subluxation. 4. Multilevel foraminal narrowing as detailed above. The above report was generated using voice recognition software. It may contain grammatical, syntax o r spelling errors. Dictated: 12/01/2018 9:59 AM Transcribed: 12/01/2018 10:30 AM Mirian [id number] [email or web address] Electronically signed by: Brian Parrish M.D. 12/01/2018 11:34 AM
[2018-12-01] MEDS: POLYETHYLENE (MIRALAX) 17 GM PACK PO SCH (12:28)
[2018-12-01] MEDS: PRAMIPEXOLE DIHYDROCHLO 0.5 MG TAB PO SCH ×2 (13:31→21:05)
--- NOTE | 2018-12-01 13:34 | Consultation Report ---
DATE OF CONSULTATION: 12/01/2018 CHIEF COMPLAINT: Back pain and falls. HISTORY OF PRESENT ILLNESS: Rosa is delightful, I am meeting her on rounds for the first time this morning in consultation. She has multiple medical problems, diabetes, hypertension, depression, anxiety. She suffered a fall at home, worsening restless legs syndrome according to her, something fell backwards, hit the back of her head and now her pain is quite significant. She also had transverse process fracture. She was admitted to the best I can gather because of her falls and head injury. She had some recent spine surgery most recently 3 months ago. She had 2 falls prior to that. She has some leg issues. She has some urinary incontinence, no fecal incontinence. She is alert, oriented here this morning, pleasant to talk to. PAST MEDICAL HISTORY: Described. MEDICATIONS: Include amitriptyline, gabapentin, Cymbalta. She also has major depressive disorder. Sleep apnea, hypertension. Her home medications are listed, they are significant, and for a pain standpoint, amitriptyline, gabapentin, Oxycodone. ALLERGIES: ANTIBIOTICS. REVIEW OF SYSTEMS: She denies any blurred vision, double vision, tinnitus or vertigo. OBJECTIVE: GENERAL: She is alert, oriented. SKIN: Clean, dry. A noticeable posterior lumbar incision, but it looks clean. There is no discharge, warmth or erythema. HEENT: Essentially normal. CARDIAC: Normal. LUNGS: Clear. ABDOMEN: Soft, nontender. NEUROLOGIC: She was alert, oriented to person, place, and time. EXTREMITIES: Worked appropriately. VITAL SIGNS: 36.5 temperature, pulse regular at about 72 beats per minute. IMAGING DATA: Plain x-rays were ordered by me this morning demonstrated severe kyphoscoliosis of the spine, the implants seem to be in appropriate position but the scoliosis is severe. MRI scan reviewed as well, the pictures and her reports, she has some fluid accumulation, she has her significant stenosis. She has her kyphoscoliosis, but no evidence of my opinion of osteomyelitis or spinal abscesses. CT scan demonstrated a transverse process. ASSESSMENT: Delightful patient, 68 years of age, low back pain, stenosis of the spine, multiple spine surgeries, multiple comorbidities. As a note, she has had I believe 3 surgeries in July of this year alone on the lumbar spine. PLAN: Right now, I will follow her closely, I am not planning any surgical intervention. Surgical intervention undertaking to correct her curvature is significant, and because of her back issues, osteoporosis and osteopenia, surgery might not be the best solution for her. We will watch her closely. She declined the use of a brace. I would think pain management, possible rehab versus surgical intervention might be the appropriate pathway. I will follow her daily. GEOFF
--- NOTE | 2018-12-01 16:04 | Hospitalist Progress Note ---
Date of Service December 01, 2018 Assessment & Plan (1) Fracture of transverse process of thoracic vertebra: - Traumatic fracture of T10 transverse process following mechanical fall at home. - Pain control: heat and Percocet prn (currently well controlled) - Continue home Cymbalta, Gabapentin, Amitriptyline as prescribed. - Orthopedics consulted, appreciate input. Does not require surgical intervention at this time but will continue to follow. - PT/OT evaluation for discharge planning -- was previously receiving home PT/OT. (2) Fall: - Multiple falls at home from lack of sleep in setting of restless leg syndrome. - PT/OT consulted. - Fall precautions. (3) Weakness of lower extremity: - Has had bilat LE weakness -- R>L -- along with urinary incontinence at home. - L-spine MRI showed known fluid collection from L3-L5 with central canal stenosis (also noted on MRI in July 2018) - Will continue to monitor -- orthopedics following. (4) History of fusion of lumbar spine: - S/p extensive L2-L5 lumbar spinal laminectomy and fusion by Dr. Nieto at [facility]. - Changes noted on spinal imaging -- orthopedics consulted. - Continue Percocet prn pain along with other home medications. (5) Epidural hematoma: - Noted on spinal imaging in July and November 2018; leading to severe central canal stenosis. (6) Diabetes: - Last A1C 6.8 on 07/16/18 - SSI coverage as inpt. (7) Intractable neuropathic pain of lower extremity: - Continue Amitryptyline, Gabapentin, Cymbalta as noted above. - (8) Major depressive disorder: - Continue Duloxetine as prescribed. (9) Sleep apnea: - Has CPAP machine at home but rarely uses it. - Ordered as inpatient -- encouraged use in hospital and at home. (10) Hypertension: - Continue Losartan/HCTZ. - Continue Amlodipine. (11) Hyperlipidemia: - Continue Atorvastatin (12) Restless leg syndrome: - Home Mirapex was recently increased to 1.5 mg TID -- will change dose as inpt. - RLS leading to lack of sleep and falls. DVT ppx: Lovenox subQ daily. Dispo: Discharge to home likely on 12/02/18 pending PT/OT evaluation. Supervising Physician Co-Signing Physician Notes PA Supervision Note: I did not personally see or examine the patient today, but I verified all sims points of EJ Cannon's assessment and plan with the following exceptions/additions: None Subjective Pt. is doing well today. Pain is well controlled overall. Pain is located in the right side of general back and low back. She also has right leg weakness -- this has been an ongoing problem. Complains of RLS -- leads to decreased sleep and lethargy with falls. Mirapex recently increased to 1.5 mg TID by outpatient provider. Ortho following, appreciate input. Review of Systems Review of Systems: All systems reviewed & are unremarkable except as noted in HPI & below Constitutional: no fever, no chills, no fatigue, no weakness and no anorexia Respiratory: no cough, no dyspnea and no dyspnea on exertion Cardiovascular: no chest pain, no palpitations and no edema Gastrointestinal: no abdominal pain, no nausea, no vomiting, no constipation and no diarrhea/loose stools Genitourinary: no difficulty urinating Musculoskeletal: + back pain and + joint pain Integumentary: no non-healing lesions Allergy / Immunological: no rash Physical Exam Physical Exam: General: Resting comfortably in no apparent distress HEENT: NC/AT; PERRLA with EOMI; [place] conjunctiva, MMM. No erythema of posterior pharynx Neck: Supple and nontender Cardiac: RRR Lungs: CTA bilaterally Abdomen: Bowel normoactive X 4; Nontender to palpation Extremities: Warm. No edema present Neuro: No focal weakness Skin: No rash Results & Data Vital Signs (Past 12 Hours) Vital Signs Temp Pulse Pulse Resp BP Pulse Ox 12/01/18 08:10 69 95 12/01/18 07:20 36.4 C L 68 16 114/71 94 Laboratory Results 12/01/18 12/01/18 12/01/18 Range/Units 12:08 08:04 08:00 WBC (4.8-10.8) K/uL RBC (4.2-5.4) M/uL Hgb (12.0-16.0) g/dL Hct (37-47) % MCV (80-100) fL MCH (25-34) pg MCHC (32-36) g/dL RDW Std Deviation (36.4-46.3) fL RDW Coeff of Manas (11.5-14.5) % Plt Count (130-400) K/uL MPV (7.4-10.4) fL PT (9.0-12.0) Seconds INR (0.9-1.1) Sodium (136-145) mmol/L Potassium (3.5-5.1) mmol/L Chloride (98-107) mmol/L Carbon Dioxide (21-32) mmol/L Anion Gap (3-11) BUN (7-18) mg/dl Creatinine (0.6-1.2) mg/dl Est Cr Clr Drug Dosing ml/min Est GFR ( Amer) Est GFR (Non-Af Amer) BUN/Creatinine Ratio (10-20) Glucose (70-99) mg/dl POC Glucose 109 H 109 H (70-99) Calcium (8.5-10.1) mg/dl Urine Color Yellow Urine Appearance Cloudy A (Clear) Urine pH 6.0 (4.5-7.5) Ur Specific [place] 1.024 (1.000-1.030) Urine Protein Negative (Negative) Urine Glucose (UA) Negative (Negative) Urine Ketones Negative (Negative) Urine Blood Negative (Negative) Urine Nitrite Negative (Negative) Urine Bilirubin Negative (Negative) Urine Urobilinogen Negative (Negative) Ur Leukocyte Esterase Negative (Negative) Urine WBC (Auto) 1-5 (0-5) /hpf Urine RBC (Auto) 0-4 (0-4) /hpf U Hyaline Cast (Auto) 1-5 (0-5) /lpf U Epithel Cells (Auto) >30 H (0-5) /lpf Urine Bacteria (Auto) Negative (Negative) 12/01/18 12/01/18 12/01/18 Range/Units 05:24 05:24 05:20 WBC 8.65 (4.8-10.8) K/uL RBC 4.29 (4.2-5.4) M/uL Hgb 11.1 L (12.0-16.0) g/dL Hct 36.3 L (37-47) % MCV 84.6 (80-100) fL MCH 25.9 (25-34) pg MCHC 30.6 L (32-36) g/dL RDW Std Deviation 57.2 H (36.4-46.3) fL RDW Coeff of Manas 18.8 H (11.5-14.5) % Plt Count 266 (130-400) K/uL MPV 9.9 (7.4-10.4) fL PT 10.9 (9.0-12.0) Seconds INR 1.1 (0.9-1.1) Sodium 141 (136-145) mmol/L Potassium 3.5 (3.5-5.1) mmol/L Chloride 101 (98-107) mmol/L Carbon Dioxide 33 H (21-32) mmol/L Anion Gap 7.0 (3-11) BUN 13 (7-18) mg/dl Creatinine 0.74 (0.6-1.2) mg/dl Est Cr Clr Drug Dosing 78.9 ml/min Est GFR ( Amer) 97.8 Est GFR (Non-Af Amer) 84.4 BUN/Creatinine Ratio 16.8 (10-20) Glucose 125 H (70-99) mg/dl POC Glucose (70-99) Calcium 9.0 (8.5-10.1) mg/dl Urine Color Urine Appearance (Clear) Urine pH (4.5-7.5) Ur Specific [place] (1.000-1.030) Urine Protein (Negative) Urine Glucose (UA) (Negative) Urine Ketones (Negative) Urine Blood (Negative) Urine Nitrite (Negative) Urine Bilirubin (Negative) Urine Urobilinogen (Negative) Ur Leukocyte Esterase (Negative) Urine WBC (Auto) (0-5) /hpf Urine RBC (Auto) (0-4) /hpf U Hyaline Cast (Auto) (0-5) /lpf U Epithel Cells (Auto) (0-5) /lpf Urine Bacteria (Auto) (Negative) 11/30/18 11/30/18 Range/Units 20:40 20:40 WBC 8.99 (4.8-10.8) K/uL RBC 4.58 (4.2-5.4) M/uL Hgb 11.9 L (12.0-16.0) g/dL Hct 37.8 (37-47) % MCV 82.5 (80-100) fL MCH 26.0 (25-34) pg MCHC 31.5 L (32-36) g/dL RDW Std Deviation 56.2 H (36.4-46.3) fL RDW Coeff of Manas 18.7 H (11.5-14.5) % Plt Count 283 (130-400) K/uL MPV 10.4 (7.4-10.4) fL PT (9.0-12.0) Seconds INR (0.9-1.1) Sodium 137 (136-145) mmol/L Potassium (3.5-5.1) mmol/L Chloride 102 (98-107) mmol/L Carbon Dioxide 25 (21-32) mmol/L Anion Gap 9.0 (3-11) BUN 11 (7-18) mg/dl Creatinine 0.79 (0.6-1.2) mg/dl Est Cr Clr Drug Dosing 74.8 ml/min Est GFR ( Amer) 90.4 Est GFR (Non-Af Amer) 78.0 BUN/Creatinine Ratio 13.5 (10-20) Glucose 125 H (70-99) mg/dl POC Glucose (70-99) Calcium 9.3 (8.5-10.1) mg/dl Urine Color Urine Appearance (Clear) Urine pH (4.5-7.5) Ur Specific [place] (1.000-1.030) Urine Protein (Negative) Urine Glucose (UA) (Negative) Urine Ketones (Negative) Urine Blood (Negative) Urine Nitrite (Negative) Urine Bilirubin (Negative) Urine Urobilinogen (Negative) Ur Leukocyte Esterase (Negative) Urine WBC (Auto) (0-5) /hpf Urine RBC (Auto) (0-4) /hpf U Hyaline Cast (Auto) (0-5) /lpf U Epithel Cells (Auto) (0-5) /lpf Urine Bacteria (Auto) (Negative) PG Care Time/CCT Total # of Minutes Spent Total Time Spent with Patient: Total time spent is greater than 50% in coordination of care (as documented) at patient's floor/unit and/or counseling patient: (1) Intractable neuropathic pain of lower extremity Laterality: unspecified laterality Qualified Code(s): M79.2 - Neuralgia and neuritis, unspecified (2) Major depressive disorder Active/Remission status: remission status unspecified Major depression recurrence: recurrent Qualified Code(s): F33.9 - Major depressive disorder, re current, unspecified (3) Sleep apnea Sleep apnea type: obstructive Qualified Code(s): G47.33 - Obstructive sleep apnea (adult) (pediatric) (4) Diabetes Diabetes mellitus complication status: without complication 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 insulin use: without exterminator helper use Diabetes mellitus type: type 2 Qualified Code(s): E11.9 - Type 2 diabetes mellitus without complications (5) Fracture of transverse process of thoracic vertebra Encounter type: initial encounter Fracture type: closed Qualified Code(s): S22.009A - Unspecified fracture of unspecified thoracic vertebra, initial encounter for closed fracture (6) Weakness of lower extremity Laterality: bilateral Qualified Code(s): R29.898 - Other symptoms and signs involving the musculoskeletal system (7) Hypertension Hypertension type: essential hypertension Qualified Code(s): I10 - Essential (primary) hypertension (8) Fall Encounter type: initial encounter Qualified Code(s): W19.XXXA - Unspecified fall, initial encounter
[2018-12-01] MEDS ORDERED: AMITRIPTYLINE HCL 25 MG TAB PO SCH (21:00)
[2018-12-02] MEDS: OXYCODONE/ACETAMINOPHEN 5mg/325mg TAB PO PRN (06:07)
[2018-12-02 07:00] LABS: Basophils # (auto) 0.02 K/uL (0-0.2); Basophils % (auto) 0.3 %; Eosinophils # (auto) 0.12 K/uL (0-0.5); Eosinophils % (auto) 1.7 %; Hematocrit (blood only) 37.7 % (37-47); Hemoglobin 11.6 g/dL (12.0-16.0); Immature Granulocytes # (auto) 0.02 K/uL (0.00-0.02); Immature Granulocytes % (auto) 0.3 %; Lymphocytes # (auto) 2.96 K/uL (1.2-3.4); Lymphocytes % (auto) 41.9 %; Mean Corpuscular Hgb Conc 30.8 g/dL (32-36); Mean Corpuscular Volume 83.8 fL (80-100); Mean Platelet Volume 10.2 fL (7.4-10.4); Monocytes # (auto) 0.54 K/uL (0.11-0.59); Monocytes % (auto) 7.6 %; Neutrophils # (auto) 3.41 K/uL (1.4-6.5); Neutrophils % (auto) 48.2 %; Platelet Count 247 K/uL (130-400); RDW Coefficient of Variation 18.6 % (11.5-14.5); White Blood Count 7.07 K/uL (4.8-10.8)
[2018-12-02] MEDS: CHOLECALCIFEROL 1,000 UNITS TAB PO SCH (07:26)
[2018-12-02] MEDS: DULOXETINE HCL 60 MG CAP PO SCH (07:26)
[2018-12-02] MEDS: ATORVASTATIN 40 MG TAB PO SCH (07:26)
[2018-12-02] MEDS: GABAPENTIN 300 MG CAP PO SCH ×2 (07:26→13:12)
[2018-12-02] MEDS: PRAMIPEXOLE DIHYDROCHLO 0.5 MG TAB PO SCH ×2 (07:26→13:12)
[2018-12-02] MEDS: AMLODIPINE BESYLATE 5 MG TAB PO SCH (07:26)
[2018-12-02] MEDS: DULOXETINE HCL 30 MG CAP PO SCH (07:26)
[2018-12-02] MEDS: PANTOprazole 40 MG TAB PO SCH (07:27)
[2018-12-02] MEDS: LOSARTAN POTASSIUM 50 MG TAB PO SCH (07:27)
[2018-12-02] MEDS: POLYETHYLENE (MIRALAX) 17 GM PACK PO SCH (07:27)
[2018-12-02] MEDS: ENOXAPARIN INJ 40 MG/0.4 ML SYR SQ SCH (07:27)
[2018-12-02] MEDS: LOSARTAN/HCTZ 50/12.5MG TAB PO SCH (07:28)
[2018-12-02 07:32] LABS: BUN Creatinine Ratio 17.3 (10-20); Calcium 9.1 mg/dl (8.5-10.1); Creatinine Clr Calc Pharmacy 84.6 ml/min; Est GFR (African American) 105.1; Est GFR (Non-African American) 90.7; Potassium 3.5 mmol/L (3.5-5.1)
[2018-12-02 07:34] VITALS: BP 123/74; TEMP 98.2; O2SAT 98
[2018-12-02] MEDS: INSULIN ASPART 100 UNITS/ML 3 ML PEN SC SCH ×2 (08:23→12:27)
--- NOTE | 2018-12-02 09:02 | Progress Note ---
DATE: 12/02/2018 SUBJECTIVE: She is alert, oriented, taking p.o., pain controlled. I saw her at the bedside this morning at approximately 7:45 a.m. Neurologically intact. OBJECTIVE: She is afebrile, blood pressure controlled. Wound clean. Images concerning, but yet stable. IMPRESSION: Complex delightful patient 68 with a complex spinal problem. PLAN: Hopefully, she will be discharged home later on today. At this moment, we are not planning any type of surgical intervention. I would like to see her back in the office in 2 weeks. I am going to follow her progress through recovery.
[2018-12-02] MEDS ORDERED: OXYCODONE/ACETAMINOPHEN 5mg/325mg TAB PO PRN (10:52)
[2018-12-02] MEDS ORDERED: LIDOCAINE 5% 1 PATCH TD SCH (11:00)
--- NOTE | 2018-12-02 12:03 | Hospitalist Progress Note ---
Date of Service December 02, 2018 Assessment & Plan (1) Fracture of transverse process of thoracic vertebra: - Traumatic fracture of T10 transverse process following mechanical fall at home. - Pain control: Percocet prn -- increase back to home dose of 1 tablet q6hr prn. - Start Lidoderm patch along with encouraging use of heat for pain relief. - Continue home Cymbalta, Gabapentin, Amitriptyline as prescribed. - Orthopedics consulted, appreciate input. Does not require surgical intervention, will need to follow up in 2 weeks as outpatient with Dr. Mariscal. - Consult pain management for evaluation due to ongoing uncontrolled pain -- has followed with PM in the past. - PT/OT recommending to resume home health services. (2) Fall: - Multiple falls at home from lack of sleep in setting of restless leg syndrome. - Resume home PT/OT at discharge. - Fall precautions. (3) Weakness of lower extremity: - Has had bilat LE weakness -- R>L -- along with urinary incontinence at home. - L-spine MRI showed known fluid collection from L3-L5 with central canal stenosis (also noted on MRI in July 2018) - Will continue to monitor -- orthopedics following. (4) History of fusion of lumbar spine: - S/p extensive L2-L5 lumbar spinal laminectomy and fusion by Dr. Nieto at [facility]. - Othopedics consulted, appreciate input. - Continue Percocet prn pain along with other home medications. (5) Epidural hematoma: - Noted on spinal imaging in July and November 2018; leading to severe central canal stenosis. (6) Constipation: - Has not had a BM in 4-5 days -- chronic constipation at home. - Senokot S BID, Miralax both scheduled; will also add Lactulose q4hr until she has a BM. - Constipation may be contributing to lower abd/back pain. (7) Diabetes: - Last A1C 6.8 on 07/16/18 - SSI coverage as inpt. (8) Intractable neuropathic pain of lower extremity: - Continue Amitryptyline, Gabapentin, Cymbalta as noted above. (9) Major depressive disorder: - Continue Duloxetine as prescribed. (10) Sleep apnea: - Has CPAP machine at home but rarely uses it. - Ordered as inpatient -- encouraged use in hospital and at home. (11) Hypertension: - Continue Losartan/HCTZ. - Continue Amlodipine. (12) Hyperlipidemia: - Continue Atorvastatin (13) Restless leg syndrome: - Home Mirapex was recently increased to 1.5 mg TID. - RLS leading to lack of sleep and falls. DVT ppx: Lovenox subQ daily. Dispo: Discharge to home pending pain management evaluation and improvement in pain control. Subjective Pt. has increased back pain today -- has not improved since admission. She states back pain in located on right side and in lower back. Lower extremity weakness is stable, unchanged. Urinary incontinence improving, no episodes du ring this admission. Has not had a BM since last week -- will start lactulose q4hr until she has a BM today; may also help with low back pain if she has a BM. Plan to consult pain management for evaluation, has followed with them in the past. Will start lidoderm patch and encourage K-pad use. PT/OT recommending home therapy -- arrange at discharge. Review of Systems Review of Systems: All systems reviewed & are unremarkable except as noted in HPI & below Constitutional: no fever, no chills, no fatigue, no weakness and no anorexia Respiratory: no cough, no dyspnea and no dyspnea on exertion Cardiovascular: no chest pain, no palpitations and no edema Gastrointestinal: + constipation; no abdominal pain, no nausea, no vomiting and no diarrhea/loose stools Genitourinary: no difficulty urinating and no urinary incontinence Musculoskeletal: + back pain; no joint pain Integumentary: no non-healing lesions Allergy / Immunological: no rash Physical Exam Physical Exam: General: Resting comfortably in no apparent distress HEENT: NC/AT; PERRLA with EOMI; [place] conjunctiva, MMM. No erythema of posterior pharynx Neck: Supple and nontender Cardiac: RRR Lungs: CTA bilaterally Abdomen: Bowel normoactive X 4; Nontender to palpation Extremities: Warm. No edema present Neuro: No focal weakness Skin: No rash Results & Data Vital Signs (Past 12 Hours) Vital Signs Temp Pulse Resp BP Pulse Ox 12/02/18 07:33 36.8 C 77 20 123/74 98 12/02/18 03:50 36.5 C 67 17 117/71 92 Laboratory Results 12/02/18 12/02/18 12/02/18 Range/Units 08:00 06:36 06:36 WBC 7.07 (4.8-10.8) K/uL RBC 4.50 (4.2-5.4) M/uL Hgb 11.6 L (12.0-16.0) g/dL Hct 37.7 (37-47) % MCV 83.8 (80-100) fL MCH 25.8 (25-34) pg MCHC 30.8 L (32-36) g/dL RDW Std Deviation 57.0 H (36.4-46.3) fL RDW Coeff of Manas 18.6 H (11.5-14.5) % Plt Count 247 (130-400) K/uL MPV 10.2 (7.4-10.4) fL Immature Gran % (Auto) 0.3 % Neut % (Auto) 48.2 % Lymph % (Auto) 41.9 % [place] % (Auto) 7.6 % Eos % (Auto) 1.7 % Baso % (Auto) 0.3 % Immature Gran # (Auto) 0.02 (0.00-0.02) K/uL Neut # (Auto) 3.41 (1.4-6.5) K/uL Lymph # (Auto) 2.96 (1.2-3.4) K/uL [place] # (Auto) 0.54 (0.11-0.59) K/uL Eos # (Auto) 0.12 (0-0.5) K/uL Baso # (Auto) 0.02 (0-0.2) K/uL Sodium 138 (136-145) mmol/L Potassium 3.5 (3.5-5.1) mmol/L Chloride 100 (98-107) mmol/L Carbon Dioxide 33 H (21-32) mmol/L Anion Gap 5.0 (3-11) BUN 12 (7-18) mg/dl Creatinine 0.69 (0.6-1.2) mg/dl Est Cr Clr Drug Dosing 84.6 ml/min Est GFR ( Amer) 105.1 Est GFR (Non-Af Amer) 90.7 BUN/Creatinine Ratio 17.3 (10-20) Glucose 127 H (70-99) mg/dl POC Glucose 137 H (70-99) Calcium 9.1 (8.5-10.1) mg/dl 12/01/18 12/01/18 12/01/18 Range/Units 20:42 17:19 12:08 WBC (4.8-10.8) K/uL RBC (4.2-5.4) M/uL Hgb (12.0-16.0) g/dL Hct (37-47) % MCV (80-100) fL MCH (25-34) pg MCHC (32-36) g/dL RDW Std Deviation (36.4-46.3) fL RDW Coeff of Manas (11.5-14.5) % Plt Count (130-400) K/uL MPV (7.4-10.4) fL Immature Gran % (Auto) % Neut % (Auto) % Lymph % (Auto) % [place] % (Auto) % Eos % (Auto) % Baso % (Auto) % Immature Gran # (Auto) (0.00-0.02) K/uL Neut # (Auto) (1.4-6.5) K/uL Lymph # (Auto) (1.2-3.4) K/uL [place] # (Auto) (0.11-0.59) K/uL Eos # (Auto) (0-0.5) K/uL Baso # (Auto) (0-0.2) K/uL Sodium (136-145) mmol/L Potassium (3.5-5.1) mmol/L Chloride (98-107) mmol/L Carbon Dioxide (21-32) mmol/L Anion Gap (3-11) BUN (7-18) mg/dl Creatinine (0.6-1.2) mg/dl Est Cr Clr Drug Dosing ml/min Est GFR ( Amer) Est GFR (Non-Af Amer) BUN/Creatinine Ratio (10-20) Glucose (70-99) mg/dl POC Glucose 114 H 144 H 109 H (70-99) Calcium (8.5-10.1) mg/dl PG Care Time/CCT Total # of Minutes Spent Total Time Spent with Patient: Total time spent is greater than 50% in coordination of care (as documented) at patient's floor/unit and/or counseling patient: (1) Intractable neuropathic pain of lower extremity Laterality: unspecified laterality Qualified Code(s): M79.2 - Neuralgia and neuritis, unspecified (2) Major depressive disorder Active/Remission status: remission status unspecified Major depression recurrence: recurrent Qualified Code(s): F33.9 - Major depressive disorder, recurrent, unspecified (3) Sleep apnea Sleep apnea type: obstructive Qualified Code(s): G47.33 - Obstructive sleep apnea (adult) (pediatric) (4) Diabetes Diabetes mellitus complication status: without complication 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 mellitus 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 department floorperson insulin use: without assisted use Diabetes mellitus type: type 2 Qualified Code(s): E11.9 - Type 2 diabetes mellitus without complications (5) Fracture of transverse process of thoracic vertebra Encounter type: initial encounter Fracture type: closed Qualified Code(s): S22.009A - Unspecified fracture of unspecified thoracic vertebra, initial encoun ter for closed fracture (6) Weakness of lower extremity Laterality: bilateral Qualified Code(s): R29.898 - Other symptoms and signs involving the musculoskeletal system (7) Hypertension Hypertension type: essential hypertension Qualified Code(s): I10 - Essential (primary) hypertension (8) Fall Encounter type: initial encounter Qualified Code(s): W19.XXXA - Unspecified fall, initial encounter
[2018-12-02] MEDS ORDERED: DOCUSATE SODIUM/SENNA 50/8.6MG TAB PO SCH (12:15)
[2018-12-02] MEDS ORDERED: LACTULOSE SYRUP 30 GM/45 ML UDP PO SCH (12:30)
[2018-12-02] MEDS ORDERED: LACTULOSE SYRUP 20 GM/30 ML UDC PO SCH (12:30)
[2018-12-02 14:44] VITALS: PULSE 76
--- NOTE | 2018-12-02 14:53 | Discharge Summary ---
Date of Service December 02, 2018 Admission HPI Per Admitting Provider 68yo C female with history of DM, HTN, HLP, Depression/Anxiety presenting after a fall at home. Patient reports acute worsening of her restless leg syndrome over the last two weeks. She has been unable to sleep for more than 2 hours at a time due to her symptoms. Yesterday she was in her kitchen when she fell asleep standing up. She subsequently fell backwards and hit the back of her head and her right flank on a cupboard. Since then she has had burning pain from her right flank to her abdomen, 8/10 in severity. Patient has had two back surgeries performed at [facility], most recently on August 18, 2018. Since her most recent surgery she has had two prior falls. She reports chronic numbness in her bilateral legs, R > L and severe weakness and clumsiness of her right leg. She also reports some urinary incontinence. No fecal incontinence. ER Course: Morphine, Zofran, NSS, O2 sats to 80% after Morphine Admission Exam Per Admitting Provider General: patient resting comfortably, NAD, non-toxic in appearance, AA&O x 4 Skin: warm, dry, intact, no rashes or lesions HEENT: NC/AT, PERRL, EOMI, anicteric sclera, conjunctiva without injection, external ear normal to inspection and nontender, nares patent, dry mucus membranes, dentition intact, no oropharyngeal lesions, neck supple, trachea midline, no LAD, no thyromegaly, no JVD Heart: +S1/S2, regular, no m/r/g Lungs: equal air entry bilaterally, no rales/rhonchi/wheezes Abd: +BS, soft, NT/ND, no masses/organomegaly/ascites, warmth and tenderness of right paraspinal musculature Ext: warm, 2+ pulses in UE/LE bilaterally, no clubbing/cyanosis or edema Neuro: nonfocal, patient AA&O x 4, speech intact, no facial droop, moving all extremities on command, diminished sensation to light touch on bilateral LE from knees to feet, R>L, diminished MS in bilateral LE 3/5 Principal Diagnosis Chronic Back Pain, T10 transverse process fracture Discharge Exam General: Resting comfortably in no apparent distress HEENT: NC/AT; PERRLA with EOMI; [place] conjunctiva, MMM. No erythema of posterior pharynx Neck: Supple and nontender Cardiac: RRR Lungs: CTA bilaterally Abdomen: Bowel normoactive X 4; Nontender to palpation Extremities: Warm. No edema present Neuro: No focal weakness Skin: No rash Discharge Data Allergies Allergy/AdvReac Type Severity Reaction Status Date / Time cefuroxime AdvReac Mild upset Verified 11/17/18 11:07 stomach Consultations 11/30/18 22:52 ED Decision to Admit Stat 12/01/18 01:46 Consult Orthopedic Surgery Routine Ordered Studies 11/30/18 20:27 CT abd pelvis wo con Stat CT chest wo con Stat CT lumbar spine wo con Stat CT thoracic spine wo con Stat 12/01/18 03:53 MR lumbar spine wo con Routine Hospital Course (1) Fracture of transverse process of thoracic vertebra: Traumatic fracture of T10 transverse process following mechanical fall at home. Pain control: Percocet prn -- will increase to 1 tab q4hr prn. Pt did not use lidocaine patch during this admission. Continued home Cymbalta, Gabapentin, Amitriptyline as prescribed. Orthopedics consulted, appreciate input. Does not require surgical intervention, will need to follow up in 2 weeks as outpatient with Dr. Mariscal. Discussed case with pain management, Dr. Fields. Pt. has followed with PM for long period of time, failed multiple therapies. Plan to increase Percocet to q4hr and follow up in clinic early next week. PT/OT recommended to resume home therapy services. Pain stable on day of discharge -- can follow up as outpt for further evaluation. (2) Fall: Multiple falls at home from lack of sleep in setting of restless leg syndrome. Resume home PT/OT at discharge. Fall precautions. (3) Weakness of lower extremity: Has had chronic bilat LE weakness -- R>L -- along with urinary incontinence at home. L-spine MRI showed known fluid collection from L3-L5 with central canal stenosis (also noted on MRI in July 2018) Lower extremity weakness appeared to be at baseline and urinary incontinence now resolved. (4) History of fusion of lumbar spine: S/p extensive L2-L5 lumbar spinal laminectomy and fusion by Dr. Nieto at [facility]. Orthopedics consulted, appreciate input. Continue Percocet prn pain along with other home medications. (5) Epidural hematoma: Noted on spinal imaging in July and November 2018; leading to severe central canal stenosis. (6) Constipation: Has not had a BM in 5 days -- chronic constipation at home. Senokot S BID, Miralax both scheduled; also received dose of Lactulose today. Instructed to take Miralax TID at home until she has a BM. Constipation may be contributing to lower abd/back pain. (7) Diabetes: Last A1C 6.8 on 07/16/18 SSI coverage as inpt. Resume home meds at discharge. (8) Intractable neuropathic pain of lower extremity: Continued Amitryptyline, Gabapentin, Cymbalta as noted above. (9) Major depressive disorder: Continued Duloxetine as prescribed. (10) Sleep apnea: Has CPAP machine at home but rarely uses it. Ordered as inpatient -- encouraged use in hospital and at home. (11) Hypertension: Continued Losartan/HCTZ. Continued Amlodipine. (12) Hyperlipidemia: Continued Atorvastatin (13) Restless leg syndrome: Home Mirapex was recently increased to 1.5 mg TID. RLS leading to lack of sleep and falls. Script for Mirapex 1.5 mg TID was provided at discharge. Discharge to home on 12/02/18. Total Time Total Time Spent Total Time Spent (In Minutes): >30 minutes Total Time Includes: Examination of the Patient, Discharge Planning, Medication Reconciliation, Communication With Other Providers and Other Discharge Plan Discharge Items Patient Disposition: Home - Self-Care Reason For Visit: FALL Discharge Diagnosis: Chronic Back Pain Condition: Good Discharge Goals: Decrease discomfort, Improve disease control, Improve function, Increase independence, Improve nutritional status and Prevent disease Activity: As commented below Exercise/Sports: Gradually increase as tolerated Non-emergency contact: Primary Care Provider Call non-emergency contact if: you have any medication questions, your symptoms worsen, your pain is not controlled, your pain is worsening, your pain is unusual for you, your pain is concerning for you and you have a fever Follow-up/Referrals: Kellee Fields DO [Physician] - (An appointment will be scheduled with pain management early next week. ) Naveed Mariscal DO [Surgeon] - (Please schedule an appointment in 2 weeks. ) Elda Ng [Primary Care Provider] - 12/04/18 3:10 pm (Please, follow up with Elda WHEELER on FridayDecember 04 at 3:10 pm. *If you need to change this appointment, call the office at [phone].) Diet: Carb Consistent or DM2 Addtl Provider Instructions: 1. Chronic Back Pain/Acute Thoracic Vertebrae Fracture * Please continue Percocet 5/325 mg every 4 hours as needed for pain control. * Pain management will be contacting you regarding setting up an appointment early next week. * Please schedule an appointment with Dr. Mariscal in 2 weeks for evaluation. * Home PT/OT will be resumed. 2. Constipation in setting of narcotics * Please take Miralax three times daily for constipation until you have a bowel movement. 3. Please schedule a follow up with your PCP in 1-2 weeks. Prescriptions: New oxycodone-acetaminophen [Percocet] 5-325 mg Tablet 1 tab PO Q4H PRN (Reason: pain) Qty: 30 RF: 0 pramipexole [Mirapex] 1 mg tablet 1.5 mg PO TID Qty: 135 RF: 0 Continued atorvastatin 40 mg tablet 40 mg PO DAILY RF: 0 amlodipine 5 mg tablet 5 mg PO QAM RF: 0 aspirin [Adult Low Dose Aspirin] 81 mg tablet,delayed release (DR/EC) 81 mg PO DAILY RF: 0 amitriptyline 25 mg tablet 25 mg PO QPM RF: 0 gabapentin 300 mg capsule 900 mg PO TID RF: 0 cholecalciferol (vitamin D3) 1,000 unit capsule 1,000 units PO QAM RF: 0 omeprazole magnesium [Prilosec OTC] 20 mg tablet,delayed release (DR/EC) 20 mg PO QAM RF: 0 metformin 1,000 mg tablet extended release 24hr 1,000 mg PO BID RF: 0 duloxetine [Cymbalta] 60 mg capsule,delayed release(DR/EC) 60 mg PO QAM RF: 0 losartan-hydrochlorothiazide [Hyzaar] 100-12.5 mg tablet 1 tab PO QAM RF: 0 duloxetine [Cymbalta] 30 mg capsule,delayed release(DR/EC) 30 mg PO QAM RF: 0 glimepiride 4 mg tablet 4 mg PO QAM RF: 0 Discontinued oxycodone-acetaminophen [Percocet] 5-325 mg tablet 0.5 tab PO Q6H PRN (Reason: Pain) RF: 0 Stand-Alone Forms: My [facility], Op[facility] Pain [facility] [employer]/Other Patient Handouts: Syncope Tx Prevent Discharge Orders: Discharge Order (Routine); Ordered 12/02/18 Ordered By: Jessica Leonard Admission Data Admit Date/Time: 12/01/18 16:28 Attending Provider: Jessica Leonard Admit Provider: Amber Garcia Primary Care Provider: Elda Ng Other Providers: Amber Garcia ; Naveed Mariscal ; Estrella Cannon Service: Surgical Services Other Interventions: Discharge Summary Assessment (RN) Last Done: 12/02/18 14:42 Pending Studies at Discharge: No DC Date/Time DO NOT enter until pt leaves facility: 12/02/18 16:15 Supervising Physician Co-Signing Physician Notes PA Supervision Note: I personally saw and examined the patient. I verified all sims points and agree with EJ Cannon with the following exceptions and/or additions: Patient much improved with pain control, she is willing to try taking an increased amount of Percocet temporarily to control her pain from her new fracture at home. Vitals reviewed Gen: AAOx3, NAD HEENT: Anicteric sclerae, EOMI CV: RRR no mgr nl S1S2 Pulm: CTAB no wcr Abd: +BS soft NT ND no masses or hernias Ext: No edema, 2+ DP pulses Skin: No rashes, warm/dry Neuro: Full strength throughout 68-year-old female here with chronic and severe lumbar spinal stenosis status post multiple surgeries, here with mechanical fall leading to T10 acute transverse process fracture with pain. Now improved, stable for discharge
== END 2018-12-02 16:15 | disposition home or self-care (01) | DRG 552 ==
LOC: ED 19:40 → 3E 19:40 → SUATTDRO 12-01 00:38 → 3E 12-01 01:30
DX: R32 Unspecified urinary incontinence; K59.09 Other constipation; G97.61 Postprocedural hematoma of a nervous system organ or structure following a nervous system procedure; I10 Essential (primary) hypertension; Z88.1 Allergy status to other antibiotic agents; M79.2 Neuralgia and neuritis, unspecified; R29.898 Other symptoms and signs involving the musculoskeletal system; Z79.899 Other long term (current) drug therapy; W18.39XA Other fall on same level, initial encounter; Y92.000 Kitchen of unspecified non-institutional (private) residence as the place of occurrence of the external cause; Z79.84 Long term (current) use of oral hypoglycemic drugs; E11.9 Type 2 diabetes mellitus without complications; S22.078A Other fracture of T9-T10 vertebra, initial encounter for closed fracture; F32.9 Major depressive disorder, single episode, unspecified; E78.5 Hyperlipidemia, unspecified; Z79.82 Long term (current) use of aspirin; R29.6 Repeated falls; G25.81 Restless legs syndrome; Z98.1 Arthrodesis status; G47.33 Obstructive sleep apnea (adult) (pediatric)

== ENCOUNTER 2020-04-21 22:25 | Inpatient (IN) ==
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
[2020-04-21] MEDS ORDERED: SODIUM CHLORIDE 0.9% 500 ML IV SCH (23:00)
[2020-04-21 23:10] LABS: Basophils # (auto) 0.01 K/uL (0-0.2); Basophils % (auto) 0.2 %; Eosinophils # (auto) 0.01 K/uL (0-0.5); Eosinophils % (auto) 0.2 %; Hematocrit (blood only) 37.3 % (37-47); Hemoglobin 11.6 g/dL (12.0-16.0); Immature Granulocytes # (auto) 0.01 K/uL (0.00-0.02); Immature Granulocytes % (auto) 0.2 %; Mean Corpuscular Hgb Conc 31.1 g/dL (32-36); Mean Corpuscular Volume 86.9 fL (80-100); Mean Platelet Volume 10.5 fL (7.4-10.4); Monocytes # (auto) 0.66 K/uL (0.11-0.59); Monocytes % (auto) 10.4 %; Neutrophils # (auto) 4.27 K/uL (1.4-6.5); Platelet Count 190 K/uL (130-400); RDW Coefficient of Variation 16.2 % (11.5-14.5); RDW Standard Deviation 52.3 fL (36.4-46.3); Red Blood Count 4.29 M/uL (4.2-5.4); White Blood Count 6.36 K/uL (4.8-10.8)
[2020-04-21 23:17] LABS: Alanine Aminotransferase 33 U/L (12-78); Albumin Level 3.1 gm/dl (3.4-5.0); Aspartate Aminotransferase 45 U/L (15-37); BUN Creatinine Ratio 11.5 (10-20); Blood Urea Nitrogen 27 mg/dl (7-18); Calcium 8.1 mg/dl (8.5-10.1); Carbon Dioxide 30 mmol/L (21-32); Chloride 100 mmol/L (98-107); Creatinine Clr Calc Pharmacy 23.3 ml/min; Est GFR (Non-African American) 20.7; Glucose 124 mg/dl (70-99); Magnesium 1.7 mg/dl (1.8-2.4); Potassium 3.2 mmol/L (3.5-5.1); Sodium 137 mmol/L (136-145)
[2020-04-21 23:18] LABS: Prothrombin Time 10.8 Seconds (9.0-12.0)
[2020-04-21] MEDS ORDERED: DEXAMETHASONE SOD INJ 10 MG/ML VIAL IV ONE (23:21)
[2020-04-21 23:27] LABS: Albumin Globulin Ratio 0.8 (0.9-2); Alkaline Phosphatase 105 U/L (45-117); Bilirubin,Total 0.3 mg/dl (0.2-1); Creatine Kinase 462 U/L (26-192); Globulin 3.9 gm/dl (2.5-4.0); Troponin I < 0.015 ng/ml (0-0.045)
[2020-04-21] MEDS ORDERED: fentaNYL citrate 100 MCG/2 ML VIAL IV STA (23:53)
[2020-04-21 23:58] LABS: Base Excess ABG -0.5 mEq/L (-9-1.8); HCO3 ABG 26 mmol/L (19-24); Oxygen Saturation ABG 97.4 % (90-95); PCO2 ABG 50 mmHg (35-46); PO2 ABG 103 mmHg (80-95); pH ABG 7.33 (7.35-7.45)
[2020-04-22] LABS: Allen Test POS (Pos)
--- NOTE | 2020-04-22 03:40 | History & Physical Report ---
Date of Service April 22, 2020 Assessment & Plan (1) Fall: 70yo female presents after unwitnessed fall, found down in living room - ?ground level fall with back trauma. ?hypoxia may have contributed to fall. Patient with acute lower thoracic back pain at present. Denies numbness, tingl ing, weakness, bowel or bladder complaints. No neurological deficits on exam. CT with disc space widening suggestive of acute injury. -Admit to medical -Neuro checks q 4 hours to assess for cord compression/compromise -Check MRI thoracic spine -Ortho/Spine consultation pending findings - not ordered yet Present on Admission?: Yes (2) Back injury: Assume acute trauma to thoracic spine following an unwitnessed fall at home. No neurological deficits now -Neuro checks as above -MRI -Pain control - Oxycodone PRN Present on Admission?: Yes (3) COVID-19 virus infection: Patient with Covid-19 infection. Hypoxic on arrival -Admit to medical -Maintain precautions, airborne and contact -Check procalcitonin -Check inflammatory markers - ESR, CRP, Ferritin, LDH, Ddimer -Dexamethasone 6mg IV daily -Supplemental O2 as needed to maintain saturation >92% -Patient does not wish to receive convalescent plasma at this time - she will continue to consider treatment -No remdesivir due to renal compromise -Albuterol PRN SOB - patient on at home -Continue Vitamin D - patient on at home -Zinc 22omg po BID -Pepcid 20mg IV BID -Melatonin -Lovenox 40 BID Present on Admission?: Yes (4) Elevated CK: CK mildly elevated at 462. ?muscle inflammation in setting of Covid-19 infection vs prolonged downtime, trauma from fall -LR at 125mL/hr -Repeat CK in AM Present on Admission?: Yes (5) TEA (acute kidney injury): BUN elevated at 27, Cr elevated at 2.34 from normal baseline of 13 and 1.12, respectively, on 03/19/20. Normal UOP. Electrolytes are favorable - mild hypokalemia at K=3.2 -LR at 125mL/hr x 2 liters -BMP q 12 hours to monitor renal function and electrolytes -Avoid nephrotoxic agents -Renal dosing where appropriate Present on Admission?: Yes (6) Diabetes: Well controlled. BynI8J=8.8. Blood acfci=404 today. Patient will be on IV Dexamethasone -Hold oral agent -ISS, BID Lantus -Goal blood sugar 100 - 140 -Continue Gabapentin - will decrease from 900mg po TID to 200mg po TID for compromised renal function Present on Admission?: Yes (7) Restless leg syndrome: Chronic. Stable -Continue Mirapex 1.5mg po TID Present on Admission?: Yes (8) Generalized anxiety disorder: -Trazodone qHS - will change to PRN (9) Major depressive disorder: Chronic. Well controlled -Continue Cymbalta Present on Admission?: Yes (10) Hypertension: Blood pressure stable -Continue Amlodipine 5mg po daily -Hold Losartan-HCTZ due to renal injury Present on Admission?: Yes (11) Hyperlipidemia: Chronic -Continue Atorvastatin 40mg po daily F/E/N - LR at 125mL/hr x 2 liters, Mg repletion, CC/AHA diet as tolerated Ppx - Lovenox BID Code - Full per discussion with patient Dispo - Admit to medical Present on Admission?: Yes History of Present Illness Chief Complaint: Fall, back pain Primary Care Provider: SUMMER Murry Rosa Elizabeth is a 70yo C female with history of DM, HTN, HLP, Fatty liver presenting after a fall at home. Patient began feeling ill a few days ago with subjective fevers, fatigue. She believes she was exposed to Coronavirus by her daughter who works at [employer]. She was tested for Covid-19 on outpatient and is still waiting results. Patient was at home this evening and believes she fell onto her back - she was found down in her living room and does not recall how she got there. She does not recall falling and does not think she passed out. Patient presently with bandlike low back pain. Denies numbness/tingling in legs. No bowel or bladder complaints. On arrival she was afebrile, HD stable, hypoxic at 72% on room air ER Course: Dexamethasone 6mg IV, Fentanyl 75mcg IV, NSS x 500mL Allergies Allergy/AdvReac Type Severity Reaction Status Date / Time cefuroxime AdvReac Mild upset Verified 04/21/20 23:15 stomach Home Medications Medication Instructions Recorded Confirmed Type amlodipine 5 mg tablet 5 mg PO QAM 02/09/18 04/21/20 History aspirin 81 mg tablet,delayed 81 mg PO QAM 02/09/18 04/21/20 History release atorvastatin 40 mg tablet 40 mg PO QAM 02/09/18 04/21/20 History cholecalciferol (vitamin D3) 25 1,000 units PO QAM 02/09/18 04/21/20 History mcg (1,000 unit) capsule metformin 1,000 mg tablet,extended 1,000 mg PO BID tab 02/09/18 04/21/20 History release 24hr omeprazole magnesium 20 mg 20 mg PO QAM 02/09/18 04/21/20 History tablet,delayed release pramipexole [Mirapex] 1.5 mg PO TID #135 tab 12/02/18 04/21/20 Rx albuterol sulfate 2.5 mg INHALATION .USE 1 UNIT DOSE 08/08/19 04/21/20 History EVERY 4-6 HOURS NEEDED FOR WHEEZING . PRN albuterol sulfate 90 mcg/actuation 2 puffs INH Q4H PRN gm 08/08/19 04/21/20 History aerosol inhaler losartan 100 1 tab PO QAM tab 08/08/19 04/21/20 History mg-hydrochlorothiazide 12.5 mg tablet duloxetine 30 mg capsule,delayed 30 mg PO QAM #90 cap 01/28/20 04/21/20 Rx release duloxetine 60 mg capsule,delayed 60 mg PO QAM #90 cap 01/28/20 04/21/20 Rx release gabapentin 300 mg capsule 900 mg PO TID cap 01/28/20 04/21/20 History trazodone 100 mg tablet 100 mg PO HS #90 tab 01/28/20 04/21/20 Rx glipizide 2.5 mg PO BID 03/19/20 04/21/20 History Past Med/Surg History Medical History (Updated 04/22/20 @ 04:32 by Amber Garcia DO) Bowel and bladder incontinence Degenerative disc disease Depressive disorder Diabetes Diabetes mellitus, type 2 A1C 6.8% 07/16 Diabetic peripheral neuropathy associated with type 2 diabetes mellitus SCHMIDT (dyspnea on exertion) Fatty liver Generalized anxiety disorder History of DVT (deep vein thrombosis) >35 YEARS AGO. PT HIT WITH A BOARD/BAT TO THE LEG AND DEVELOPED CLOT. NO ISSUES SINCE. Hyperlipidemia Hypertension Intractable low back pain Intractable neuropathic pain of lower extremity Kidney stone Lumbar spinal stenosis Lumbar spondylosis Major depressive disorder Neurogenic claudication due to lumbar spinal stenosis Neurogenic claudication due to lumbar spinal stenosis Panic disorder Sleep apnea DOES NOT USE DEVICE Surgical wound, non healing Surgical History H/O varicose vein ligation and stripping Saphenous vein History of appendectomy 10/19/12 - laparoscopic by Dr Herrera History of section X3 History of colonoscopy 10/2004 - Dr Carrion. Neg. Repeat in 5 years. History of fusion of lumbar spine History of herniorrhaphy 02/21/15 - Repair of incarcerated incisional hernia with Surgimesh 10cm in diameter resection of incarcerated omentum by Dr Knutson History of open reduction and internal fixation (ORIF) procedure ANKLE Family History Mother Heart disease Hypertension Cancer Osteoporosis Brother Diabetes Daughter Cervical cancer Father Parkinsons Denies family history of Ovarian cancer Breast cancer Colorectal cancer Stroke Asthma Social History Smoking Status: Never smoker Second Hand Exposure: No; Hx Alcohol Use: No Hx Substance Use: No Preferred Language: Croatian Communication Ability: Effective Visual Impairment: Limited Hearing Ability: Normal Ice Carver Required: No Beliefs That Will Affect Care: None marital status: Current Living Situation: Spouse current occupational status: retired current occupation: Retired Feels Safe at Home: Yes Dental Care, Regularly: Yes Physical Activity Frequency: Does not Exercise Assistive Devices: Cane Review of Systems Review of Systems: All systems reviewed & are unremarkable except as noted in HPI & below Patient denies cough, SOB, chest pain, loss of taste or smell Denies nausea, vomiting, diarrhea, constipation Physical Exam Physical Exam: General: patient resting comfortably, NAD, non-toxic in appearance, AA&O x 4 Skin: warm, dry, intact, no rashes or lesions HEENT: NC/AT, PERRL, EOMI, anicteric sclera, conjunctiva without injection, external ear normal to inspection and nontender, nares patent, moist mucus membranes, dentition intact, no oropharyngeal lesions, neck supple, trachea midline, no LAD, no thyromegaly, no JVD Heart: +S1/S2, regular, no m/r/g Lungs: equal air entry bilaterally, no rales/rhonchi/wheezes Abd: +BS, soft, NT/ND, no masses/organomegaly/ascites Ext: warm, 2+ pulses in UE/LE bilaterally, no clubbing/cyanosis or edema Neuro: nonfocal, patient AA&O x 4, speech intact, no facial droop, moving all extremities on command with equal strength 5/5, sensation to bilateral LE intact +spinal tenderness over lower thoracic spine Results & Data Results & Data ([facility]) Vital Signs (Past 12 Hours) Vital Signs Temp Pulse Resp BP Pulse Ox 04/22/20 03:00 85 24 116/68 96 04/22/20 02:30 78 20 115/69 91 04/22/20 02:00 79 18 121/68 91 04/22/20 01:30 84 18 130/69 93 04/22/20 01:00 81 24 114/63 93 04/22/20 00:30 78 18 119/63 96 04/22/20 00:13 78 16 121/65 96 04/21/20 23:00 78 20 104/57 L 98 04/21/20 22:58 98 04/21/20 22:46 76 24 103/53 L 98 04/21/20 22:27 37.0 C 84 20 96/56 L 72 L Laboratory Results Lab Results 04/21/20 04/21/20 04/21/20 Range/Units 22:45 22:45 22:45 WBC 6.36 (4.8-10.8) K/uL RBC 4.29 (4.2-5.4) M/uL Hgb 11.6 L (12.0-16.0) g/dL Hct 37.3 (37-47) % MCV 86.9 (80-100) fL MCH 27.0 (25-34) pg MCHC 31.1 L (32-36) g/dL RDW Std Deviation 52.3 H (36.4-46.3) fL RDW Coeff of Manas 16.2 H (11.5-14.5) % Plt Count 190 (130-400) K/uL MPV 10.5 H (7.4-10.4) fL Immature Gran % (Auto) 0.2 % Neut % (Auto) 67.0 % Lymph % (Auto) 22.0 % Hutchinson % (Auto) 10.4 % Eos % (Auto) 0.2 % Baso % (Auto) 0.2 % Neut # (Auto) 4.27 (1.4-6.5) K/uL Lymph # (Auto) 1.40 (1.2-3.4) K/uL Hutchinson # (Auto) 0.66 H (0.11-0.59) K/uL Eos # (Auto) 0.01 (0-0.5) K/uL Baso # (Auto) 0.01 (0-0.2) K/uL Immature Gran # (Auto) 0.01 (0.00-0.02) K/uL PT 10.8 (9.0-12.0) Seconds INR 1.0 (0.9-1.1) ABG pH (7.35-7.45) ABG pCO2 (35-46) mmHg ABG pO2 (80-95) mmHg ABG HCO3 (19-24) mmol/L ABG O2 Saturation (90-95) % ABG Base Excess (-9-1.8) mEq/L Shukri Test (Pos) Barometric Pressure mm/Hg Oxygen Given Sodium 137 (136-145) mmol/L Potassium 3.2 L (3.5-5.1) mmol/L Chloride 100 (98-107) mmol/L Carbon Dioxide 30 (21-32) mmol/L Anion Gap 8.0 (3-11) BUN 27 H (7-18) mg/dl Creatinine 2.34 H (0.6-1.2) mg/dl Est Cr Clr Drug Dosing 23.3 ml/min Est GFR ( Amer) 24.0 Est GFR (Non-Af Amer) 20.7 BUN/Creatinine Ratio 11.5 (10-20) Glucose 124 H (70-99) mg/dl Calcium 8.1 L (8.5-10.1) mg/dl Magnesium 1.7 L (1.8-2.4) mg/dl Total Bilirubin 0.3 (0.2-1) mg/dl AST 45 H (15-37) U/L ALT 33 (12-78) U/L Alkaline Phosphatase 105 (45-117) U/L Total Creatine Kinase 462 H (26-192) U/L Troponin I < 0.015 (0-0.045) ng/ml Total Protein 7.0 (6.4-8.2) gm/dl Albumin 3.1 L (3.4-5.0) gm/dl Globulin 3.9 (2.5-4.0) gm/dl Albumin/Globulin Ratio 0.8 L (0.9-2) TSH 4.450 (0.300-4.500) uIu/ml COVID-19 Eval Order SARS-CoV-2, RNA, NAAT (NEGATIVE) 04/21/20 04/21/20 04/21/20 Range/Units 23:07 23:07 23:17 WBC (4.8-10.8) K/uL RBC (4.2-5.4) M/uL Hgb (12.0-16.0) g/dL Hct (37-47) % MCV (80-100) fL MCH (25-34) pg MCHC (32-36) g/dL RDW Std Deviation (36.4-46.3) fL RDW Coeff of Manas (11.5-14.5) % Plt Count (130-400) K/uL MPV (7.4-10.4) fL Immature Gran % (Auto) % Neut % (Auto) % Lymph % (Auto) % Hutchinson % (Auto) % Eos % (Auto) % Baso % (Auto) % Neut # (Auto) (1.4-6.5) K/uL Lymph # (Auto) (1.2-3.4) K/uL Hutchinson # (Auto) (0.11-0.59) K/uL Eos # (Auto) (0-0.5) K/uL Baso # (Auto) (0-0.2) K/uL Immature Gran # (Auto) (0.00-0.02) K/uL PT (9.0-12.0) Seconds INR (0.9-1.1) ABG pH 7.33 L (7.35-7.45) ABG pCO2 50 H (35-46) mmHg ABG pO2 103 H (80-95) mmHg ABG HCO3 26 H (19-24) mmol/L ABG O2 Saturation 97.4 H (90-95) % ABG Base Excess -0.5 (-9-1.8) mEq/L Shukri Test POS (Pos) Barometric Pressure 742.4 mm/Hg Oxygen Given 4 L Sodium (136-145) mmol/L Potassium (3.5-5.1) mmol/L Chloride (98-107) mmol/L Carbon Dioxide (21-32) mmol/L Anion Gap (3-11) BUN (7-18) mg/dl Creatinine (0.6-1.2) mg/dl Est Cr Clr Drug Dosing ml/min Est GFR ( Amer) Est GFR (Non-Af Amer) BUN/Creatinine Ratio (10-20) Glucose (70-99) mg/dl Calcium (8.5-10.1) mg/dl Magnesium (1.8-2.4) mg/dl Total Bilirubin (0.2-1) mg/dl AST (15-37) U/L ALT (12-78) U/L Alkaline Phosphatase (45-117) U/L Total Creatine Kinase (26-192) U/L Troponin I (0-0.045) ng/ml Total Protein (6.4-8.2) gm/dl Albumin (3.4-5.0) gm/dl Globulin (2.5-4.0) gm/dl Albumin/Globulin Ratio (0.9-2) TSH (0.300-4.500) uIu/ml COVID-19 Eval [facility] SARS-CoV-2, RNA, NAAT POSITIVE A* (NEGATIVE) Diagnostic Findings CT Head - Per STAT-rad - no evidence of intracranial abnormality or skull fracture. Volume loss and small vessel disease. Mild paranasal sinus mucosal thickening. No fluid levels. CT C-Spine - No evidence of acute fracture or malalignment. Degenerative changes CT T-Spine - Marked anterior disc space widening at T10-T11 levels. New since prior. New paravertebral fat stranding notably anterior to the lower thoracic spine. Worrisome for acute injury. Multilevel degenerative changes especially of the lower thoracic spine. Bibasilar atelectasis and patchy airspace disease within partially visualized lungs. Small and mildly enlarged mediastinal nodes CT L-Spine - No evidence of acute fracture or malalignment. L2-L5 posterior fusion as on the prior Code Status & VTE Plan VTE Prophylaxis Plan VTE Prophylaxis will be ordered: Yes PG Care Time/CCT Total # of Minutes Spent Total Time Spent with Patient: Total time spent is greater than 50% in coordination of care (as documented) at patient's floor/unit and/or counseling patient: Coding Level of Care Code 15787 Initial Inpt Care Lvl 3 Diagnoses Fall W19.XXXA Encounter type: initial encounter Back injury S39.92XA Encounter type: initial encounter COVID-19 virus infection U07.1 Elevated CK R74.8 TEA (acute kidney injury) N17.9 Diabetes E11.9 Diabetes mellitus type: type 2 Diabetes mellitus terminal press operator insulin use: without terminal press operator use Diabetes mellitus complication status: without complication Restless leg syndrome G25.81 Generalized anxiety disorder F41.1 Major depressive disorder F33.9 Major depression recurrence: recurrent Active/Remission status: remission status unspecified Hypertension I10 Hypertension type: essential hypertension Hyperlipidemia E78.5 Hyperlipidemia type: unspecified (1) Fall Encounter type: initial encounter Qualified Code(s): W19.XXXA - Unspecified fall, initial encounter (2) Back injury Encounter type: initial encounter Qualified Code(s): S39.92XA - Unspecified injury of lower back, initial encounter (3) Diabetes Diabetes mellitus type: type 2 Diabetes mellitus assisted insulin use: without terminal press operator use Diabetes mellitus complication status: without complication Qualified Code(s): E11.9 - Type 2 diabetes mellitus without complications (4) Major depressive disorder Major depression recurrence: recurrent Active/Remission status: remission status unspecified Qualified Code(s): F33.9 - Major depressive disorder, recurrent, unspecified (5) Hypertension Hypertension type: essential hypertension Qualified Code(s): I10 - Essential (primary) hypertension (6) Hyperlipidemia Hyperlipidemia type: unspecified Qualified Code(s): E78.5 - Hyperlipidemia, unspecified
[2020-04-22] MEDS ORDERED: CARBOHYDRATES FOR HYPOGLYCEMIA PO PRN (05:02)
[2020-04-22] MEDS ORDERED: DEXTROSE 50% 50 ML SYRINGE IV PRN (05:02)
[2020-04-22] MEDS ORDERED: GLUCAGON FOR INJ 1 MG VIAL SQ PRN (05:02)
[2020-04-22] MEDS ORDERED: ACETAMINOPHEN 325 MG TAB PO PRN (05:02)
[2020-04-22] MEDS ORDERED: ALBUTEROL HFA 8 GM INHALER INH PRN (05:02)
[2020-04-22] MEDS ORDERED: traZODone HCL 100 MG TAB PO PRN (05:02)
[2020-04-22] MEDS ORDERED: GLUCOSE 40% GEL 15 GM TUBE PO PRN (05:02)
[2020-04-22] MEDS ORDERED: GLUCOSE 10 TABS/TUBE PO PRN (05:02)
[2020-04-22] MEDS: LACTATED RINGER'S 1,000 ML IV SCH ×2 (05:15→20:11)
[2020-04-22] MEDS: MAGNESIUM SULFATE / D5W 1 GM/100 ML BAG IV SCH ×2 (05:22→08:07)
[2020-04-22 06:51] LABS: Appearance Urine Clear (Clear); Bilirubin Urine Negative (Negative); Blood Urine Negative (Negative); Color Urine Yellow; Glucose Urine UA Negative (Negative); Ketones Urine Negative (Negative); Leukocyte Esterase Urine Negative (Negative); Nitrite Urine Negative (Negative); Protein Urine Negative (Negative); Specific Gravity Urine 1.016 (1.000-1.030); Urobilinogen Urine Negative (Negative)
--- NOTE | 2020-04-22 07:50 | CT Scan Report ---
HEAD CT NONCONTRAST CT DOSE: HISTORY: fall, pain on asa TECHNIQUE: Multiaxial CT images of the head were performed without the use of intravenous contrast. A utomated exposure control was utilized for this study. A dose lowering technique was utilized adheri ng to the principles of ALARA. Comparison: Head CT 05/02/2013. Findings: Mild mucosal thickening within the left maxillary sinus. The mastoid air cells are clear. T he calvarium and skull base are intact. The ventricles and sulci are within normal limits. There is n o mass, hematoma, midline shift, or acute infarct. Impression: No acute intracranial abnormality. ACT 112: Negative or not required by law. Electronically signed by: Oc Rosas M.D. 04/22/2020 7:48 AM
[2020-04-22] MEDS ORDERED: PNEUMOCOCCAL POLYSACCHARIDES 25 MCG/0.5 ML VIAL/SYR IM ONE (08:00)
[2020-04-22] MEDS ORDERED: PNEUMOCOCCAL ADMINISTRATION CHARGE ONE (08:00)
[2020-04-22] MEDS ORDERED: ENOXAPARIN INJ 40 MG/0.4 ML SYR SQ SCH (08:00)
--- NOTE | 2020-04-22 08:00 | CT Scan Report ---
CERVICAL SPINE CT CT DOSE: 3608.64 mGy.cm HISTORY: fall, pain TECHNIQUE: Multiaxial CT images of the cervical spine were performed and reformatted in the sagittal and coronal plane without the use of contrast. A dose lowering technique was utilized adhering to th e principles of ALARA. COMPARISON: Cervical spine CT 03/19/2020. FINDINGS: No fractures. No subluxation. Prevertebral soft tissues and the C1-C2 interval are intact. No pneumothorax. Mild to moderate degenerative changes within the cervical spine. IMPRESSION: No fractures within the cervical spine. ACT 112: Negative or not required by law. Electronically signed by: Oc Rosas M.D. 04/22/2020 7:59 AM
[2020-04-22] MEDS: oxyCODONE HCL IR 5 MG TAB (IMMEDIATE RELEASE) PO PRN ×3 (08:04→17:25)
--- NOTE | 2020-04-22 08:04 | CT Scan Report ---
LUMBAR SPINE CT CT DOSE: HISTORY: Low back pain. fall, pain TECHNIQUE: Multiaxial CT images of the lumbar spine were performed and reformatted in the sagittal an d coronal plane without the use of contrast. A dose lowering technique was utilized adhering to the principles of ALARA. COMPARISON: Lumbar spine CT 11/30/2018. FINDINGS: No fracture or subluxation. L2-L5 posterior decompression and fusion. Levoscoliosis centere d at L2. Multilevel degenerative changes are again noted. Mild periprosthetic lucency at the left L2 pedicle screw. This remains unchanged. Paravertebral soft tissues are unremarkable. The visualized sa yesenia is intact. The L1-L2 vertebral bodies are fused. IMPRESSION: 1. No acute fractures within the lumbar spine. 2. Degenerative and postoperative changes as described above. 3. Levoscoliosis, unchanged. ACT 112: Negative or not required by law. Electronically signed by: Oc Rosas M.D. 04/22/2020 8:02 AM
[2020-04-22] MEDS: ZINC SULFATE 220 MG CAPSULE PO SCH ×2 (08:11→20:14)
[2020-04-22] MEDS: GABAPENTIN 100 MG CAP PO SCH ×3 (08:12→20:12)
[2020-04-22] MEDS: PRAMIPEXOLE DIHYDROCHLO 0.5 MG TAB PO SCH ×3 (08:12→20:13)
--- NOTE | 2020-04-22 08:13 | Magnetic Resonance Report ---
THORACIC SPINE MRI HISTORY: fall, pain, abnormal CT TECHNIQUE: Multiplanar multisequence MRI of the thoracic spine was performed without the use of contr ast. COMPARISON: Thoracic spine CT 04/22/2020. FINDINGS: As seen on the same day thoracic spine CT there is widening at the T10-11 disc space with edema/fluid throughout the disc space. There is disruption of the anterior longitudinal ligament at this level. The posterior longitudinal ligament appears intact. Prevertebral edema from the T8-T11 levels. Findin gs likely represent an acute to subacute traumatic injury with possible developing pseudoarthrosis. T horacic spinal cord at this level demonstrates a normal signal intensity. Multilevel degenerative delmy nges with severe central canal narrowing at T7-T8 due to a focal central disc protrusion. This result s in moderate cord deformity at this level. There is also moderate to severe central canal narrowing at T10-11 most pronounced along the right paracentral location due to a right paracentral focal disc protrusion. This results in moderate cord deformity. Posterior to the T11 vertebral body there is abn ormal epidural signal measuring up to 4 mm in thickness. This is best seen on axial image 10 of serie s 11. This is concerning for a small epidural hematoma. IMPRESSION: 1. Abnormal widening and edema/fluid within the T10-11 disc space with disruption of the anterior sally gitudinal ligament at this level. There is also prevertebral edema from the T8-T11 levels. Findings l ikely represent an acute to subacute traumatic injury. This injury could result in a developing pseud oarthrosis. Surgical consultation recommended. 2. There is also abnormal T2 signal within the epidural space posterior to the T11 vertebral body mani suring up to 4 mm in thickness. This is concerning for small epidural hematoma. 3. Degenerative changes as described above resulting in severe central canal narrowing at T7-T8 and m oderate to severe central canal narrowing at T10-11. ACT 112: Negative or not required by law. Electronically signed by: Oc Rosas M.D. 04/22/2020 8:12 AM
[2020-04-22] MEDS: FAMOTIDINE 20 MG in SYRINGE 3 ML IV SCH ×2 (08:14→20:11)
--- NOTE | 2020-04-22 08:15 | CT Scan Report ---
THORACIC SPINE CT CT DOSE: HISTORY: Back pain. fall, pain TECHNIQUE: Multiaxial CT images of the thoracic spine were performed and reformatted in the sagittal and coronal plane without the use of contrast. A dose lowering technique was utilized adhering to e principles of ALARA. COMPARISON: None. FINDINGS: There is abnormal widening at the T10-11 disc space most pronounced anteriorly. This is con cerning for ligamentous injury. There is mild prevertebral soft tissue edema from the T8-T11 levels s uggestive of an acute injury. Moderate to severe degenerative disc disease throughout the lower thora cic spine. Disc spaces are preserved. Moderate to severe facet degenerative changes are noted. IMPRESSION: 1. Abnormal widening at the T10-11 disc space most pronounced anteriorly. This is concerning for acut e ligamentous injury. There is associated prevertebral edema at this level. 2. Otherwise, no acute fractures identified. ACT 112: Negative or not required by law. Electronically signed by: Oc Rosas M.D. 04/22/2020 8:14 AM
--- NOTE | 2020-04-22 08:43 | XRay Report ---
XR chest 1V portable CLINICAL HISTORY: weakness COMPARISON STUDY: 03/19/2020 FINDINGS: The heart is mildly enlarged. There are bibasilar opacities, likely atelectatic although an infectious/inflammatory processes could appear similar. There is no overt failure. There are no sign ificant pleural effusions. Arthritic changes are present within the shoulders.[ IMPRESSION: 1. Mild cardiomegaly 2. Bibasilar opacities, statistically atelectatic, although an infectious/inflammatory processes coul d appear similar.. ACT 112: Negative or not required by law. Electronically signed by: Isidro Perkins M.D. 04/22/2020 8:41 AM
[2020-04-22] MEDS: INSULIN GLARGINE SOLOSTAR 100 UNITS/ML 3 ML PEN SC SCH ×2 (08:59→21:05)
[2020-04-22] MEDS ORDERED: DULoxetine HCL 30 MG CAP PO SCH (09:00)
[2020-04-22] MEDS ORDERED: CHOLECALCIFEROL 1,000 UNITS 25 MCG TAB PO SCH (09:00)
[2020-04-22] MEDS ORDERED: DULoxetine HCL 60 MG CAP PO SCH (09:00)
[2020-04-22] MEDS ORDERED: DEXAMETHASONE SOD INJ 10 MG/ML VIAL IV SCH (09:00)
[2020-04-22] MEDS: INSULIN ASPART 100 UNITS/ML 3 ML PEN SC SCH ×4 (09:00→21:03)
[2020-04-22] MEDS ORDERED: ATORVASTATIN 40 MG TAB PO SCH (09:00)
[2020-04-22] MEDS ORDERED: DEXAMETHASONE SOD PHOSPHATE 6 MG in SYRINGE 0 ML IV SCH (09:00)
[2020-04-22] MEDS ORDERED: ASPIRIN 81 MG ECTAB PO SCH (09:00)
[2020-04-22] MEDS ORDERED: amLODIPine BESYLATE 5 MG TAB PO SCH (09:00)
[2020-04-22 09:19] LABS: BUN Creatinine Ratio 15.6 (10-20); Calcium 8.3 mg/dl (8.5-10.1); Creatinine Clr Calc Pharmacy 33.8 ml/min; Est GFR (African American) 36.9; Est GFR (Non-African American) 31.8; Potassium 3.6 mmol/L (3.5-5.1)
[2020-04-22 09:23] LABS: C Reactive Protein 3.91 mg/dl (0-0.29)
[2020-04-22 09:24] LABS: D Dimer 1400 ug/L FEU (0-500)
[2020-04-22] MEDS ORDERED: REMDESIVIR 200 MG in SODIUM CHLORIDE 0.9% 210 ML IV STA (10:56)
[2020-04-22] MEDS ORDERED: SODIUM CHLORIDE 0.9% 10ML FLUSH IV SCH (11:00)
--- NOTE | 2020-04-22 13:25 | Discharge Summary ---
Date of Service date of admission - April 22, 2020 date of discharge - April 23, 2020 Admission HPI Per Admitting Provider Rosa Elizabeth is a 70yo female with history of T2DM, HTN, Hyperlipidemia, Fatty liver, and morbid obesity presenting after a fall at home. Patient began feeling ill a few days ago with subjective fevers and fatigue. She believes she was exposed to Coronavirus by her daughter who works at [employer]. She was tested for Covid-19 on outpatient and is still waiting results. Patient was at home this evening and believes she fell onto her back - she was found down in her living room and does not recall how she got there. She does not recall falling and does not think she passed out. Patient presently with bandlike low back pain. Denies numbness/tingling in legs. No bowel or bladder complaints. On arrival she was afebrile but was hypoxic at 72% on room air. ER Course: Dexamethasone 6mg IV, Fentanyl 75mcg IV, NSS x 500mL Principal Diagnosis 1. acute hypoxic respiratory failure 2nd COVID-19 pneumonia 2. COVID-19 pneumonia 3. suspected thoracic spine fracture at T10/T11 ("Chance Fracture") 4. acute kidney injury Discharge Exam Constitutional well developed, well nourished and + obese; no acute distress and no altered mental status ENMT external ear and nose normal, oropharynx normal Respiratory no respiratory distress Auscultation: + rales (mild - bases) and + wheezes (occasional ) Cardiovascular Rate/Rhythm: regular rate and regular rhythm Heart Sounds: normal S1 and normal S2; no murmur Vessels: posterior tibial pulses present and dorsalis pedis pulses present; no JVD Extremities: no edema Gastrointestinal (Abdomen) normal bowel sounds, soft, nontender, no hepatosplenomegaly Neurologic moves all extremities; no focal motor deficits (strength 5/5 x 4 extremities ) sensation intact to light touch over b/l legs (L3, L4, L5 dermatomes) Psychiatric Orientation: alert and oriented x 3 Affect: + tearful affect Discharge Data Allergies Allergy/AdvReac Type Severity Reaction Status Date / Time cefuroxime AdvReac Mild upset Verified 04/21/20 23:15 stomach Consultations 04/22/20 00:51 ED Decision to Admit Stat 04/22/20 11:01 Burn CD for patient Stat Ordered Studies 04/21/20 22:48 CT cervical spine wo con Urgent - no fracture. CT head/brain wo con Urgent - no fracture or ICH or acute stroke. CT lumbar spine wo con Urgent FINDINGS: No fracture or subluxation. L2-L5 posterior decompression and fusion. Levoscoliosis centered at L2. Multilevel degenerative changes are again noted. Mild periprosthetic lucency at the left L2 pedicle screw. This remains unchanged. Paravertebral soft tissues are unremarkable. The visualized sacrum is intact. The L1-L2 vertebral bodies are fused. CT thoracic spine wo con Urgent IMPRESSION: 1. Abnormal widening at the T10-11 disc space most pronounced anteriorly. This is concerning for acute ligamentous injury. There is associated prevertebral edema at this level. 2. Otherwise, no acute fractures identified. 04/22/20 01:44 MR thoracic spine wo con Urgent IMPRESSION: 1. Abnormal widening and edema/fluid within the T10-11 disc space with disruptio n of the anterior longitudinal ligament at this level. There is also prevertebral edema from the T8-T11 levels. Findings likely represent an acute to subacute traumatic injury. This injury could result in a developing pseudoarthrosis. Surgical consultation recommended. 2. There is also abnormal T2 signal within the epidural space posterior to the T11 vertebral body measuring up to 4 mm in thickness. This is concerning for small epidural hematoma. 3. Degenerative changes as described above resulting in severe central canal narrowing at T7-T8 and moderate to severe central canal narrowing at T10-11. Hospital Course (1) Thoracic spine fracture: Suspected, at the T10-T11 disc space with disruption of the anterior longitudinal ligament. There is a small epidural hematoma adjacent to T11. MRI and CT findings are concerning for a "Chance fracture" which is an unstable fracture. Patient immediately placed on strict bedrest following the MRI. Lovenox and aspirin stopped in the setting of the epidural hematoma. Fortunately LE neurological exam remains intact. Discussion was held with Masood Morales's spine surgeon who strongly advised transfer to tertiary care center. Patient had had 2 prior back surgeries at [facility] in [place] with Dr Ihsan Cancino and thus a call was placed to [facility]. I spoke directly with Dr Cancino regarding her case and he agreed that she should be transferred right away for this spine injury/suspected fracture. Received IV and PO medications for pain control. (2) Epidural hematoma: 2nd to thoracic spine injury with suspected fracture. At T11 level. Aspirin and lovenox STOPPED. (3) Acute respiratory failure with hypoxia: 2nd COVID-19 pneumonia. O2 sats stable in low 90s on 4 liters NC O2 during her brief stay. (4) Pneumonia due to 2019 novel coronavirus: Patient received day #1 of remdesivir and day #1 of decadron 6mg IV on 04/22/20. Patient consented to receive convalescent plasma. However, she has AB blood type and there is a very limited supply of AB plasma nationally. The [facility] [employer] in [place], [place] began a national search for AB plasma on 04/22/20. Patient was given the FDA plasma fact sheet for patients. Initial onset of symptoms date was ~04/19/2020. (5) TEA (acute kidney injury): Peak Creatinine 2.3, improving to 1.2 before discharge. Creatinine improved with IV fluids alone. Baseline creatinine ~0.9. (6) Fall: Suspect 2nd to extreme weakness in setting of COVID-19 infection and significant hypoxia. It was uncertain if she had experienced syncope leading to the fall. (7) Restless leg syndrome: Continue pramipexole TID. (8) Major depressive disorder: Continue cymbalta. Continue trazodone. (9) History of DVT (deep vein thrombosis): Several decades prior. Provoked in setting of surgery per records. Not on chronic anticoagulation. (10) Hypertension: Holding ARB and HCTZ due to TEA. BPs controlled without both meds. Remains on amlodipine. (11) Diabetes mellitus, type 2: Previous HbA1C was <7% in 2019. Repeat HbA1C was pending before discharge. BSGs elevated 2nd to steroid use during her brief stay. Started on lantus/novolog while here. (12) Hyperlipidemia: Recommend holding statin as CPK was mildly high in setting of fall (CPK was 462). (13) Morbid obesity with BMI of 40.0-44.9, adult: BMI 40.8. Total Time Total Time Spent Total Time Spent (In Minutes): 80 Total Time Includes: Examination of the Patient, Discharge Planning, Medication Reconciliation and Communication With Other Providers Discharge Plan Discharge Items Patient Disposition: Transfer Acute Care Hospital Reason For Visit: COVID-19, HYPOXIA, FALL Discharge Diagnosis: 1. COVID-19 pneumonia 2. acute hypoxic respiratory failure 2nd to #1 3. thoracic spine injury with concern for "Chance fracture" at T10/T11 4. acute kidney injury Condition on Discharge: Fair Activity: As commented below Activity Comment: None; STRICT BEDREST Weightbearing Comment: STRICT BEDREST Non-emergency contact: Primary Care Provider Follow-up/Referrals: Elda Ng CRNP [Primary Care Provider] - Diet: Carb Consistent or DM2 Addtl Attending Provider Instructions: Follow-up to be determined following hospitalization at [facility] Pending Studies at Discharge: No Stand-Alone Forms: My [employer] Skilled Items Patient informed of condition?: Yes DNR: No Discharge Level of Care: Other Communicable Disease: Yes Discharge Prognosis: Other Lines: Peripheral IV Urinary Catheter: No Medications and DC Order Prescriptions: New zinc sulfate [Orazinc] 220 (50) mg Capsule 220 mg PO BID Qty: 20 RF: 0 Continued amlodipine 5 mg tablet 5 mg PO QAM RF: 0 cholecalciferol (vitamin D3) 1,000 unit capsule 1,000 units PO QAM RF: 0 omeprazole magnesium [Prilosec OTC] 20 mg tablet,delayed release (DR/EC) 20 mg PO QAM RF: 0 trazodone 100 mg tablet 100 mg PO HS Qty: 90 RF: 0 duloxetine [Cymbalta] 60 mg capsule,delayed release(DR/EC) 60 mg PO QAM Qty: 90 RF: 0 duloxetine [Cymbalta] 30 mg capsule,delayed release(DR/EC) 30 mg PO QAM Qty: 90 RF: 0 albuterol sulfate 90 mcg/actuation HFA aerosol inhaler 2 puffs INH Q4H PRN (Reason: shortness of breath or wheezing) RF: 0 albuterol sulfate 2.5 mg /3 mL (0.083 %) solution for nebulization 2.5 mg inhalation .USE 1 UNIT DOSE EVERY 4-6 HOURS NEEDED FOR WHEEZING . PRN (Reason: Shortness Of Breath) RF: 0 pramipexole [Mirapex] 1 mg tablet 1.5 mg PO TID Qty: 135 RF: 0 Changed gabapentin 300 mg capsule 200 mg PO TID Qty: 0 RF: 0 Discontinued atorvastatin 40 mg tablet 40 mg PO QAM RF: 0 aspirin [Adult Low Dose Aspirin] 81 mg tablet,delayed release (DR/EC) 81 mg PO QAM RF: 0 metformin 1,000 mg tablet extended release 24hr 1,000 mg PO BID RF: 0 losartan-hydrochlorothiazide [Hyzaar] 100-12.5 mg tablet 1 tab PO QAM RF: 0 glipizide 2.5 mg tablet extended release 24hr 2.5 mg PO BID RF: 0 Admission Data Admit Date/Time: 04/22/20 01:55 Attending Provider: Gavino Echevarria Admit Provider: Amber Garcia Primary Care Provider: Elda Ng Other Providers: Amber Garcia Other Interventions: Discharge Summary Assessment (RN) Last Done: 04/23/20 05:01 Coding Level of Care Code None Diagnoses Thoracic spine fracture S22.009A Epidural hematoma S06.4X9A Acute respiratory failure with hypoxia J96.01 Pneumonia due to 2019 novel coronavirus U07.1; J12.89 TEA (acute kidney injury) N17.9 Fall W19.XXXA Encounter type: initial encounter Restless leg syndrome G25.81 Major depressive disorder F33.9 Active/Remission status: remission status unspecified Major depression recurrence: recurrent History of DVT (deep vein thrombosis) Z86.718 Hypertension I10 Hypertension type: essential hypertension Diabetes mellitus, type 2 E11.9 Hyperlipidemia E78.5 Hyperlipidemia type: unspecified Morbid obesity with BMI of 40.0-44.9, adult E66.01; Z68.41 Comment Billed 80 minutes of critical care time for 04/22/20
[2020-04-22 15:10] LABS: Base Excess VBG 3.6 mEq/L; Oxygen Saturation VBG 92.2 %; pH VBG 7.4 (7.36-7.41)
[2020-04-22 15:26] LABS: Alanine Aminotransferase 30 U/L (12-78); Aspartate Aminotransferase 37 U/L (15-37)
[2020-04-22 18:01] LABS: BUN Creatinine Ratio 17.7 (10-20); Calcium 8.1 mg/dl (8.5-10.1); Est GFR (African American) 50.7; Est GFR (Non-African American) 43.7; Potassium 3.7 mmol/L (3.5-5.1)
--- NOTE | 2020-04-22 20:52 | Hospitalist Progress Note ---
Date of Service April 22, 2020 Assessment & Plan (1) Thoracic spine fracture: Suspected, at the T10-T11 disc space with disruption of the anterior longitudinal ligament. There is a small epidural hematoma adjacent to T11. MRI and CT findings are concerning for a "Chance fracture" which is an unstable fracture. This fracture requires urgent attention. Patient immediately placed on strict bedrest following the MRI. Lovenox and aspirin stopped in the setting of the epidural hematoma. Fortunately LE neurological exam remains intact. Discussion was held with Masood Morales's spine surgeon who strongly advised transfer to tertiary care center. Patient had had 2 prior back surgeries at [facility] in [place] with Dr Ihsan Cancino and thus I called [facility], [place]. I spoke directly with Dr Cancino regarding her case and he agreed that she should be transferred right away for this spine injury/suspected fracture. He wants her admitted to neuro ICU at [facility] in light of COVID and the suspected fracture. Awaiting bed and transfer. Dilaudid 0.25mg IV q3h prn added for pain control; adjust as needed. (2) Epidural hematoma: T11. 2nd to spine injury with suspected fracture. STOP lovenox STOP asa NO NSAIDs strict bedrest needs transfer to tertiary care (3) Acute respiratory failure with hypoxia: 2nd COVID-19 pneumonia. O2 sats stable in low 90s on 4 liters NC O2. see below. (4) Pneumonia due to 2019 novel coronavirus: Day #1 of remdesivir (CrCl improved to >30 and thus 5-day course initiated) and day #1 of decadron 6mg IV. Patient now willing to receive convalescent plasma. Consent process completed, written consent obtained. Unfortunately her blood type is AB and there is local/national shortage of plasma with this blood type. Scuddyemil Sosa doing national search for AB plasma. Await results of search. FDA patient handout on plasma given to patient. Cont supportive care. Initial onset of symptoms date was ~04/19/2020. (5) TEA (acute kidney injury): Peak Creatinine 2.3, improving to 1.2 today. Likely 2nd to volume depletion in setting of COVID-19. Stop q12h BMPs; change to once daily. Cont gentle fluids. Repeat BMP am. Baseline creatinine ~0.9. (6) Fall: Suspect 2nd to extreme weakness in setting of COVID-19 infection and significant hypoxia. It was uncertain if she had experienced syncope leading to the fall. Resulting thoracic spine injury -- see above. (7) Restless leg syndrome: Continue pramipexole TID. (8) Major depressive disorder: Continue cymbalta. Continue trazodone. (9) History of DVT (deep vein thrombosis): Several decades prior. Provoked in setting of surgery per records. Not on chronic anticoagulation. SCDs. (10) Hypertension: Holding ARB and HCTZ due to TEA. BPs controlled without both meds. (11) Diabetes mellitus, type 2: Previous HbA1C was <7% in 2019. Repeat a1c pending. BSGs elevated 2nd to steroid use. Adjust lantus/novolog. (12) Hyperlipidemia: Hold statin as CPK was mildly high in setting of fall (CPK was 462). Repeat CPK am. (13) Morbid obesity with BMI of 40.0-44.9, adult: BMI 40.8. (14) DVT prophylaxis: SCDs only chemical means contraindicated in setting of epidural hematoma strict bedrest daughter updated - she was exposed to mother and thus needs to be quarantined updated by phone extensively await transfer to [facility] in [place] accepting attending - Dr Ihsan Mosher will go to neuro ICU critical care time 80 minutes including coordinating care for suspected thoracic spine fracture that is UNSTABLE and requires urgent attention, numerous phone calls to [facility], consenting/discussing remdesivir/plasma, updating family, speaking with ortho (multiple), etc. Admission and Anticipated Discharge Date Admission Date: April 22, 2020 Subjective lengthy bedside visit today with patient. she reports 2 back surgeries at [facility] by a Dr Ihsan Mosher. back pain is very painful. any movement causes pain. she denies weakness of legs. she has baseline neuropathy in distal legs b/l, but no worse than baseline. no bowel/bladder incontinence. coughing, and has mild dyspnea - but no worse than previous. denies loss of taste/smell. fatigue present. appetite fair at best. we had long discussion about suspected "Chance" Fracture of T-spine - discussed strict bedrest and need for transfer to tertiary care. I had spoken with Russlel Lizarraga from ortho-spine and he reported that this type of fracture is unstable. ultimately patient agreeable to transfer to [facility] for her back and her COVID. lengthy discussion about remdesivir as well as convalescent plasma. patient ultimately agreeable to both. Review of Systems Constitutional: + fatigue and + anorexia; no fever and no chills Ear, Nose, Mouth, Throat: no sore throat Respiratory: + cough; no wheezing Cardiovascular: no chest pain Gastrointestinal: no abdominal pain and no vomiting Musculoskeletal: + back pain; no radicular pain Neurologic: + paresthesia (Chronic ) Physical Exam Constitutional: well developed, well nourished, + acute distress (Back pain- only when she shifts in bed) and + obese; no altered mental status ENMT: external ear and nose normal, oropharynx normal Respiratory: no respiratory distress Auscultation: + rales (mild - bases) and + wheezes (occasional ) Cardiovascular: Rate/Rhythm: regular rate and regular rhythm Heart Sounds: normal S1 and normal S2; no murmur Vessels: posterior tibial pulses present and dorsalis pedis pulses present; no JVD Extremities: no edema Gastrointestinal (Abdomen): normal bowel sounds, soft, nontender, no hepatosplenomegaly Neurologic: moves all extremities; no focal motor deficits (strength 5/5 x 4 extremities ) sensation intact. b/l legs to light touch Psychiatric: Orientation: alert and oriented x 3 Affect: + tearful affect Results & Data Results & Data ([facility]) Vital Signs (Past 12 Hours) Vital Signs Temp Pulse Resp BP Pulse Ox 04/22/20 20:07 37.0 C 63 18 107/58 L 90 04/22/20 16:09 36.9 C 71 20 110/66 92 Laboratory Results Laboratory Results - last 24 hr 04/21/20 04/21/20 04/21/20 22:45 22:45 22:45 WBC 6.36 RBC 4.29 Hgb 11.6 L Hct 37.3 MCV 86.9 MCH 27.0 MCHC 31.1 L RDW Std Deviation 52.3 H RDW Coeff of Manas 16.2 H Plt Count 190 MPV 10.5 H Immature Gran % (Auto) 0.2 Neut % (Auto) 67.0 Lymph % (Auto) 22.0 [place] % (Auto) 10.4 Eos % (Auto) 0.2 Baso % (Auto) 0.2 Neut # (Auto) 4.27 Lymph # (Auto) 1.40 [place] # (Auto) 0.66 H Eos # (Auto) 0.01 Baso # (Auto) 0.01 Immature Gran # (Auto) 0.01 ESR PT 10.8 INR 1.0 D-Dimer ABG pH ABG pCO2 ABG pO2 ABG HCO3 ABG O2 Saturation ABG Base Excess Shukri Test VBG pH VBG pCO2 VBG pO2 VBG HCO3 VBG O2 Saturation VBG Base Excess Barometric Pressure Oxygen Given Sodium 137 Potassium 3.2 L Chloride 100 Carbon Dioxide 30 Anion Gap 8.0 BUN 27 H Creatinine 2.34 H Est Cr Clr Drug Dosing 23.3 Est GFR ( Amer) 24.0 Est GFR (Non-Af Amer) 20.7 BUN/Creatinine Ratio 11.5 Glucose 124 H POC Glucose Estimat Average Glucose Hemoglobin A1c Calcium 8.1 L Magnesium 1.7 L Ferritin Total Bilirubin 0.3 AST 45 H ALT 33 Alkaline Phosphatase 105 Lactate Dehydrogenase Total Creatine Kinase 462 H Troponin I < 0.015 C-Reactive Protein Total Protein 7.0 Albumin 3.1 L Globulin 3.9 Albumin/Globulin Ratio 0.8 L Procalcitonin TSH 4.450 Urine Color Urine Appearance Urine pH Ur Specific [place] Urine Protein Urine Glucose (UA) Urine Ketones Urine Blood Urine Nitrite Urine Bilirubin Urine Urobilinogen Ur Leukocyte Esterase COVID-19 Eval Order SARS-CoV-2, RNA, NAAT Blood Type Antibody Screen 04/21/20 04/21/20 04/21/20 23:07 23:07 23:17 WBC RBC Hgb Hct MCV MCH MCHC RDW Std Deviation RDW Coeff of [place] Plt Count MPV Immature Gran % (Auto) Neut % (Auto) Lymph % (Auto) [place] % (Auto) Eos % (Auto) Baso % (Auto) Neut # (Auto) Lymph # (Auto) [place] # (Auto) Eos # (Auto) Baso # (Auto) Immature Gran # (Auto) ESR PT INR D-Dimer ABG pH 7.33 L ABG pCO2 50 H ABG pO2 103 H ABG HCO3 26 H ABG O2 Saturation 97.4 H ABG Base Excess -0.5 Shukri Test POS VBG pH VBG pCO2 VBG pO2 VBG HCO3 VBG O2 Saturation VBG Base Excess Barometric Pressure 742.4 Oxygen Given 4 L Sodium Potassium Chloride Carbon Dioxide Anion Gap BUN Creatinine Est Cr Clr Drug Dosing Est GFR ( Amer) Est GFR (Non-Af Amer) BUN/Creatinine Ratio Glucose POC Glucose Estimat Average Glucose Hemoglobin A1c Calcium Magnesium Ferritin Total Bilirubin AST ALT Alkaline Phosphatase Lactate Dehydrogenase Total Creatine Kinase Troponin I C-Reactive Protein Total Protein Albumin Globulin Albumin/Globulin Ratio Procalcitonin TSH Urine Color Urine Appearance Urine pH Ur Specific [place] Urine Protein Urine Glucose (UA) Urine Ketones Urine Blood Urine Nitrite Urine Bilirubin Urine Urobilinogen Ur Leukocyte Esterase COVID-19 Eval [facility] SARS-CoV-2, RNA, NAAT POSITIVE A* Blood Type Antibody Screen 04/22/20 04/22/20 04/22/20 05:45 07:57 07:57 WBC RBC Hgb Hct MCV MCH MCHC RDW Std Deviation RDW Coeff of [place] Plt Count MPV Immature Gran % (Auto) Neut % (Auto) Lymph % (Auto) [place] % (Auto) Eos % (Auto) Baso % (Auto) Neut # (Auto) Lymph # (Auto) [place] # (Auto) Eos # (Auto) Baso # (Auto) Immature Gran # (Auto) ESR 31 H PT INR D-Dimer ABG pH ABG pCO2 ABG pO2 ABG HCO3 ABG O2 Saturation ABG Base Excess Shukri Test VBG pH VBG pCO2 VBG pO2 VBG HCO3 VBG O2 Saturation VBG Base Excess Barometric Pressure Oxygen Given Sodium 136 Potassium 3.6 Chloride 101 Carbon Dioxide 30 Anion Gap 5.0 BUN 26 H Creatinine 1.64 H D Est Cr Clr Drug Dosing 33.8 Est GFR ( Amer) 36.9 Est GFR (Non-Af Amer) 31.8 BUN/Creatinine Ratio 15.6 Glucose 238 H POC Glucose Estimat Average Glucose Hemoglobin A1c Calcium 8.3 L Magnesium Ferritin 73.0 Total Bilirubin AST ALT Alkaline Phosphatase Lactate Dehydrogenase Total Creatine Kinase Troponin I C-Reactive Protein 3.91 H Total Protein Albumin Globulin Albumin/Globulin Ratio Procalcitonin TSH Urine Color Yellow Urine Appearance Clear Urine pH 5.0 Ur Specific [place] 1.016 Urine Protein Negative Urine Glucose (UA) Negative Urine Ketones Negative Urine Blood Negative Urine Nitrite Negative Urine Bilirubin Negative Urine Urobilinogen Negative Ur Leukocyte Esterase Negative COVID-19 Eval Order SARS-CoV-2, RNA, NAAT Blood Type Antibody Screen 04/22/20 04/22/20 04/22/20 07:57 07:57 07:57 WBC RBC Hgb Hct MCV MCH MCHC RDW Std Deviation RDW Coeff of [place] Plt Count MPV Immature Gran % (Auto) Neut % (Auto) Lymph % (Auto) [place] % (Auto) Eos % (Auto) Baso % (Auto) Neut # (Auto) Lymph # (Auto) [place] # (Auto) Eos # (Auto) Baso # (Auto) Immature Gran # (Auto) ESR PT INR D-Dimer 1400 H* ABG pH ABG pCO2 ABG pO2 ABG HCO3 ABG O2 Saturation ABG Base Excess Shukri Test VBG pH VBG pCO2 VBG pO2 VBG HCO3 VBG O2 Saturation VBG Base Excess Barometric Pressure Oxygen Given Sodium Potassium Chloride Carbon Dioxide Anion Gap BUN Creatinine Est Cr Clr Drug Dosing Est GFR ( Amer) Est GFR (Non-Af Amer) BUN/Creatinine Ratio Glucose POC Glucose Estimat Average Glucose Hemoglobin A1c Calcium Magnesium Ferritin Total Bilirubin AST ALT Alkaline Phosphatase Lactate Dehydrogenase 302 H Total Creatine Kinase Troponin I C-Reactive Protein Total Protein Albumin Globulin Albumin/Globulin Ratio Procalcitonin 0.12 TSH Urine Color Urine Appearance Urine pH Ur Specific [place] Urine Protein Urine Glucose (UA) Urine Ketones Urine Blood Urine Nitrite Urine Bilirubin Urine Urobilinogen Ur Leukocyte Esterase COVID-19 Eval Order SARS-CoV-2, RNA, NAAT Blood Type Antibody Screen 04/22/20 04/22/20 04/22/20 08:34 11:50 14:55 WBC RBC Hgb Hct MCV MCH MCHC RDW Std Deviation RDW Coeff of [place] Plt Count MPV Immature Gran % (Auto) Neut % (Auto) Lymph % (Auto) [place] % (Auto) Eos % (Auto) Baso % (Auto) Neut # (Auto) Lymph # (Auto) [place] # (Auto) Eos # (Auto) Baso # (Auto) Immature Gran # (Auto) ESR PT INR D-Dimer ABG pH ABG pCO2 ABG pO2 ABG HCO3 ABG O2 Saturation ABG Base Excess Shukri Test VBG pH VBG pCO2 VBG pO2 VBG HCO3 VBG O2 Saturation VBG Base Excess Barometric Pressure Oxygen Given Sodium Potassium Chloride Carbon Dioxide Anion Gap BUN Creatinine Est Cr Clr Drug Dosing Est GFR ( Amer) Est GFR (Non-Af Amer) BUN/Creatinine Ratio Glucose POC Glucose 248 H 179 H Estimat Average Glucose Hemoglobin A1c Calcium Magnesium Ferritin Total Bilirubin AST ALT Alkaline Phosphatase Lactate Dehydrogenase Total Creatine Kinase Troponin I C-Reactive Protein Total Protein Albumin Globulin Albumin/Globulin Ratio Procalcitonin TSH Urine Color Urine Appearance Urine pH Ur Specific [place] Urine Protein Urine Glucose (UA) Urine Ketones Urine Blood Urine Nitrite Urine Bilirubin Urine Urobilinogen Ur Leukocyte Esterase COVID-19 Eval Order SARS-CoV-2, RNA, NAAT Blood Type AB Positive Antibody Screen NEGATIVE 04/22/20 04/22/20 04/22/20 14:56 14:56 14:56 WBC RBC Hgb Hct MCV MCH MCHC RDW Std Deviation RDW Coeff of [place] Plt Count MPV Immature Gran % (Auto) Neut % (Auto) Lymph % (Auto) [place] % (Auto) Eos % (Auto) Baso % (Auto) Neut # (Auto) Lymph # (Auto) [place] # (Auto) Eos # (Auto) Baso # (Auto) Immature Gran # (Auto) ESR PT INR D-Dimer ABG pH ABG pCO2 ABG pO2 ABG HCO3 ABG O2 Saturation ABG Base Excess Shukri Test VBG pH 7.40 VBG pCO2 47 VBG pO2 67 VBG HCO3 29 VBG O2 Saturation 92.2 VBG Base Excess 3.6 Barometric Pressure 744.0 Oxygen Given Sodium Potassium Chloride Carbon Dioxide Anion Gap BUN Creatinine Est Cr Clr Drug Dosing Est GFR ( Amer) Est GFR (Non-Af Amer) BUN/Creatinine Ratio Glucose POC Glucose Estimat Average Glucose Pending Hemoglobin A1c Pending Calcium Magnesium Ferritin Total Bilirubin AST 37 ALT 30 Alkaline Phosphatase Lactate Dehydrogenase Total Creatine Kinase Troponin I C-Reactive Protein Total Protein Albumin Globulin Albumin/Globulin Ratio Procalcitonin TSH Urine Color Urine Appearance Urine pH Ur Specific [place] Urine Protein Urine Glucose (UA) Urine Ketones Urine Blood Urine Nitrite Urine Bilirubin Urine Urobilinogen Ur Leukocyte Esterase COVID-19 Eval Order SARS-CoV-2, RNA, NAAT Blood Type Antibody Screen 04/22/20 04/22/20 04/22/20 17:22 17:22 20:43 WBC RBC Hgb Hct MCV MCH MCHC RDW Std Deviation RDW Coeff of [place] Plt Count MPV Immature Gran % (Auto) Neut % (Auto) Lymph % (Auto) [place] % (Auto) Eos % (Auto) Baso % (Auto) Neut # (Auto) Lymph # (Auto) [place] # (Auto) Eos # (Auto) Baso # (Auto) Immature Gran # (Auto) ESR PT INR D-Dimer ABG pH ABG pCO2 ABG pO2 ABG HCO3 ABG O2 Saturation ABG Base Excess Shukri Test VBG pH VBG pCO2 VBG pO2 VBG HCO3 VBG O2 Saturation VBG Base Excess Barometric Pressure Oxygen Given Sodium 136 Potassium 3.7 Chloride 101 Carbon Dioxide 32 Anion Gap 3.0 BUN 22 H Creatinine 1.26 H D Est Cr Clr Drug Dosing 44.0 Est GFR ( Amer) 50.7 Est GFR (Non-Af Amer) 43.7 BUN/Creatinine Ratio 17.7 Glucose 164 H POC Glucose 200 H 167 H Estimat Average Glucose Hemoglobin A1c Calcium 8.1 L Magnesium Ferritin Total Bilirubin AST ALT Alkaline Phosphatase Lactate Dehydrogenase Total Creatine Kinase Troponin I C-Reactive Protein Total Protein Albumin Globulin Albumin/Globulin Ratio Procalcitonin TSH Urine Color Urine Appearance Urine pH Ur Specific [place] Urine Protein Urine Glucose (UA) Urine Ketones Urine Blood Urine Nitrite Urine Bilirubin Urine Urobilinogen Ur Leukocyte Esterase COVID-19 Eval Order SARS-CoV-2, RNA, NAAT Blood Type Antibody Screen PG Care Time/CCT Total # of Minutes Spent Total Time Spent with Patient: Total time spent is greater than 50% in coordination of care (as documented) at patient's floor/unit and/or counseling patient: Critical Care Time: Yes Total Critical Care Time: 80 Coding Level of Care Code None Diagnoses Thoracic spine fracture S22.009A Epidural hematoma S06.4X9A Acute respiratory failure with hypoxia J96.01 Pneumonia due to 2019 novel coronavirus U07.1; J12.89 TEA (acute kidney injury) N17.9 Fall W19.XXXA Encounter type: initial encounter Restless leg syndrome G25.81 Major depressive disorder F33.9 Active/Remission status: remission status unspecified Major depression recurrence: recurrent History of DVT (deep vein thrombosis) Z86.718 Hypertension I10 Hypertension type: essential hypertension Diabetes mellitus, type 2 E11.9 Hyperlipidemia E78.5 Hyperlipidemia type: unspecified Morbid obesity with BMI of 40.0-44.9, adult E66.01; Z68.41 DVT prophylaxis Z29.9 Additional Codes Critical Care Time - Critical Care Time: Yes ([id number]) Time Spent (min) 80 (1) Major depressive disorder Active/Remission status: remission status unspecified Major depression recurrence: recurrent Qualified Code(s): F33.9 - Major depressive disorder, recurrent, unspecified (2) Hyperlipidemia Hyperlipidemia type: unspecified Qualified Code(s): E78.5 - Hyperlipidemia, unspecified (3) Hypertension Hypertension type: essential hypertension Qualified Code(s): I10 - Essential (primary) hypertension (4) Fall Encounter type: initial encounter Qualified Code(s): W19.XXXA - Unspecified fall, initial encounter
[2020-04-22] MEDS ORDERED: MELATONIN 3 MG TAB PO SCH (21:00)
[2020-04-23] MEDS: oxyCODONE HCL IR 5 MG TAB (IMMEDIATE RELEASE) PO PRN (01:43)
[2020-04-23] MEDS: HYDROmorphone INJ 0.5 MG/0.5 ML SYR IV PRN ×2 (03:50→07:09)
--- NOTE | 2020-04-23 06:24 | Electrocardiogram Report ---
Test Reason : Blood Pressure : / mmHG Vent. 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
[2020-04-23 07:18] LABS: Basophils # (auto) 0.01 K/uL (0-0.2); Basophils % (auto) 0.1 %; Hematocrit (blood only) 34.2 % (37-47); Hemoglobin 10.7 g/dL (12.0-16.0); Immature Granulocytes # (auto) 0.01 K/uL (0.00-0.02); Immature Granulocytes % (auto) 0.1 %; Lymphocytes # (auto) 1.46 K/uL (1.2-3.4); Lymphocytes % (auto) 21.8 %; Mean Corpuscular Hemoglobin 26.6 pg (25-34); Mean Corpuscular Hgb Conc 31.3 g/dL (32-36); Mean Corpuscular Volume 84.9 fL (80-100); Mean Platelet Volume 10.5 fL (7.4-10.4); Monocytes # (auto) 0.31 K/uL (0.11-0.59); Monocytes % (auto) 4.6 %; Neutrophils % (auto) 73.4 %; Platelet Count 198 K/uL (130-400); RDW Coefficient of Variation 16.1 % (11.5-14.5); RDW Standard Deviation 49.7 fL (36.4-46.3); Red Blood Count 4.03 M/uL (4.2-5.4); White Blood Count 6.69 K/uL (4.8-10.8)
[2020-04-23 07:34] LABS: Calcium 8.1 mg/dl (8.5-10.1); Creatinine Clr Calc Pharmacy 54.3 ml/min; Est GFR (African American) 65.5; Est GFR (Non-African American) 56.5; Potassium 3.4 mmol/L (3.5-5.1)
[2020-04-23 07:40] VITALS: BP 121/63; PULSE 67; TEMP 98.6; O2SAT 83
[2020-04-23] MEDS ORDERED: REMDESIVIR 100 MG in SODIUM CHLORIDE 0.9% 230 ML IV SCH (11:00)
[2020-04-24 07:04] LABS: Estimated Average Glucose 177 mg/dl; Hemoglobin A1C 7.8 % (4.5-5.6)
== END 2020-04-23 08:50 | disposition short-term general hospital (02) | DRG 177 ==
LOC: ED 22:25 → 2S 04-22 01:55 → SUATTDRO 04-22 01:55 → 2S 04-22 04:11
DX: I10 Essential (primary) hypertension; S24.104A Unspecified injury at T11-T12 level of thoracic spinal cord, initial encounter; Z86.718 Personal history of other venous thrombosis and embolism; F33.9 Major depressive disorder, recurrent, unspecified; Z83.3 Family history of diabetes mellitus; K76.0 Fatty (change of) liver, not elsewhere classified; S22.088A Other fracture of T11-T12 vertebra, initial encounter for closed fracture; R79.89 Other specified abnormal findings of blood chemistry; N17.9 Acute kidney failure, unspecified; M48.062 Spinal stenosis, lumbar region with neurogenic claudication; Y92.009 Unspecified place in unspecified non-institutional (private) residence as the place of occurrence of the external cause; Z79.82 Long term (current) use of aspirin; S06.4X9A Epidural hemorrhage with loss of consciousness of unspecified duration, initial encounter; W19.XXXA Unspecified fall, initial encounter; E11.40 Type 2 diabetes mellitus with diabetic neuropathy, unspecified; J12.89 Other viral pneumonia; Z88.1 Allergy status to other antibiotic agents; J96.01 Acute respiratory failure with hypoxia; F41.1 Generalized anxiety disorder; G25.81 Restless legs syndrome; E66.01 Morbid (severe) obesity due to excess calories; Z68.41 Body mass index [BMI] 40.0-44.9, adult; Z82.49 Family history of ischemic heart disease and other diseases of the circulatory system; E78.5 Hyperlipidemia, unspecified; Z79.84 Long term (current) use of oral hypoglycemic drugs; U07.1 COVID-19

== ENCOUNTER 2021-05-06 15:23 | Observation (INO) ==
[2021-05-06] MEDS ORDERED: CYCLOBENZAPRINE HCL 10 MG TAB PO STA (16:46)
[2021-05-06] MEDS ORDERED: HYDROmorphone INJ 0.5 MG/0.5 ML SYR IM STA (16:46)
--- NOTE | 2021-05-06 17:23 | XRay Report ---
LEFT KNEE 3 VIEWS HISTORY: Severe left knee severe pain, posterior COMPARISON: None. FINDINGS: There is no fracture or dislocation. Small knee effusion. Vascular calcifications are noted . Mild to moderate tricompartmental osteoarthritis most pronounced at the patellofemoral joint.. No r adiopaque foreign bodies. IMPRESSION: 1. No fractures. 2. Small knee effusion. 3. Mild to moderate tricompartmental osteoarthritis. ACT 112: Negative or not required by law. Electronically signed by: Oc Rosas M.D. 05/06/2021 5:22 PM
--- NOTE | 2021-05-06 17:37 | Emergency Department Note ---
Impression & Plan Lower extremity pain, left, Left lumbar radiculopathy ED Provider Note CHIEF COMPLAINT: Left knee pain HISTORY OF PRESENT ILLNESS: Rosa Elizabeth is a 71 year old female who presents to the Emergency Department for evaluation of severe pain to her left posterior knee radiating down into her calf/maldonado/foot up into her thigh/buttocks which she developed suddenly when attempting to stand up from a recliner chair earlier this afternoon. Currently, she rates her discomfort as an 8/10 which becomes worse with attempts of movement and weight bearing activity. She has not been able to place any weight on her left leg or ambulate secondary to her discomfort. She has not attempted to take any medications for her discomfort. Of note, the patient does have history of lumbar spinal stenosis s/p spinal fusion and suffers from chronic lower back pain for which she takes Percocet as prescribed by her PCP. She denies pain to her back above baseline, no new numbness/tingling, weakness, saddle paresthesias, or loss of continence of her bowels/bladder. No recent falls or known trauma. No other acute complaints. Of note, the patient does have a history of DVT "several years ago" and is no longer on anticoagulants. She does take daily bASA. REVIEW OF SYSTEMS: 10 systems were reviewed and were negative unless otherwise stated in HPI as above PHYSICAL EXAM: VITALS: Vitals are noted on the nurse's note and reviewed by myself. Vital signs stable. General: Writhing in bed due to pain, tearful HEENT: Normocephalic, atraumatic, PERRL, EOMI, mucous membranes moist, oropharynx clear Neck: No mid-line cervical tenderness, ROM intact Resp: Good inspiratory effort on room air, lung sounds clear bilaterally CV: Regular rate and rhythm, peripheral pulses palpated Back: Tender to palpation of the midline lumbar spine at baseline, no obvious step-offs or deformities Abd: Soft, non-tender MSK: No obvious deformities, no erythema, ecchymosis or edema. Significant tenderness to palpation of the entire left lower extremity including the thigh, posterior knee, maldonado, calf and foot. ROM of the entire left lower extremity limited secondary to severe pain. No tenderness to palpation of the BUE or RLE (above baseline), moving these extremities without apparent pain or difficulty. Neuro: Awake, alert and oriented x 3, interacting and answering questions appropriately. Sensation intact throughout. Differential diagnosis includes fracture, dislocation, subluxation, arthritis, ligamentous injury, neurovascular, DVT, lumbar radiculopathy among other etiologies were considered. EMERGENCY DEPARTMENT COURSE: Physical exam and history were performed. Nursing triage notes, EMR, and medication list were personally reviewed. Patient appears to have severe pain to her left posterior knee radiating down into her calf/maldonado/foot up into her thigh/buttocks which she developed suddenly when attempting to stand up from a recliner chair earlier this afternoon. See exam as above. The patient was offered pain medication and was given Dilaudid and Flexeril. X-ray of the left knee was obtained and reviewed by radiologist and myself as below. This did show a small knee effusion and mild-moderate tricompartmental osteoarthritis. Venous doppler LLE was also obtained and was negative for DVT. Upon reevaluation, the patient was still in significant pain, writhing around in bed despite receiving Dilaudid and Flexeril. She was given an additional dose of Dilaudid. On further discussion, it seems that her pain may be radicular due to her history of lumbar spinal stenosis/degenerative disease for which she previously had spinal fusion. I discussed this with her and her daughter at [facility]. A CAT scan of her lumbar spine was ordered for further work-up and she was given an additional dose of Dilaudid and Decadron. CAT scan of the lumbar spine was obtained and reviewed by radiologist and myself as below. Per stat rad radiologist, there is possible loosening at the left L2 pedicle screw, right L3 pedicle screw extends cephalad with erosive changes of the overlying bone and the right superior endplate of L3. Multilevel extensive degenerative changes including a left transverse process and superior aspect of the sacrum. When the patient returned back from CAT scan, she was again in significant pain. She was then given a dose of Toradol. I discussed the results of the CAT scan with her and her daughter at bedside. I feel that her pain is likely due to lumbar radiculopathy given her significant degenerative changes. As the patient was still in significant pain despite multiple doses of IV pain medication, I feel that she would benefit a stay in the hospital for ongoing pain management which daughter agreed with as she only lives with her at home and has little help. I did contact Dr. Garcia of the [facility] hospitalist group and she agreed to evaluate the patient for further management. The patient and her daughter verbalized their understanding and agreement with the treatment plan as above. The chart was completed utilizing [employer] Speech Voice Recognition Software. Grammatical errors, random word insertions, pronoun errors, and incomplete sentences are an occasional consequence of this system due to software limitations, ambient noise, and hardware issues. Any formal questions or concerns about the content, text, or information contained within the body of this dictation should be directly addressed to the provider for clarification. Past Med/Surg History Medical History Anemia Degenerative disc disease Diabetes mellitus, type 2 Diabetic peripheral neuropathy associated with type 2 diabetes mellitus Fatty liver GERD (gastroesophageal reflux disease) History of COVID-19 04/2020 (HOSPITALIZED IN [facility]) History of DVT (deep vein thrombosis) >35 YEARS AGO. PT HIT WITH A BOARD/BAT TO THE LEG AND DEVELOPED CLOT. NO ISSUES SINCE. History of kidney stones Hx of fall 04/2020>FELL AND HOSPITALIZED FOR COVID/HYPOXIA AND "BROKE MY BACK>SENT TO [facility]. WAS IN A DRUG INDUCED COMA FOR WEEKS/HAD BACK SURGERY". Hx of gout Hyperlipidemia Hypertension Intractable low back pain Intractable neuropathic pain of lower extremity Lumbar spinal stenosis Lumbar spondylosis Neurogenic claudication due to lumbar spinal stenosis Restless leg syndrome Sleep apnea NO DEVICE USED Surgical History H/O varicose vein ligation and stripping Saphenous vein History of appendectomy 10/19/12 - laparoscopic by Dr Herrera History of back surgery 4 TOTAL BACK SURGERIES (PT UNSURE OF DETAILS) History of section X 3 History of colonoscopy 10/2004 - Dr Carrion. Neg. Repeat in 5 years. History of colonoscopy History of esophagogastroduodenoscopy (EGD) History of herniorrhaphy 02/21/15 - Repair of incarcerated incisional hernia with Surgimesh 10cm in diameter resection of incarcerated omentum by Dr Knutson History of open reduction and internal fixation (ORIF) procedure RT ANKLE History of tooth extraction Family History Mother Osteoporosis Heart disease Cancer Hypertension Brother Diabetes Family history of diabetes mellitus Daughter Cervical cancer Father Parkinsons Other No family history of adverse response to anesthesia Denies family history of Ovarian cancer Breast cancer Colorectal cancer Stroke Asthma Social History Smoking Status: Never smoker Second Hand Exposure: No; Hx Alcohol Use: No Preferred Language: Puerto Rican Communication Ability: Effective Visual Impairment: No Limitations 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: No Beliefs That Will Affect Care: None marital status: Current Living Situation: Spouse current occupational status: retired current occupation: Retired Feels Safe at Home: Yes Dental Care, Regularly: Yes Physical Activity Frequency: Does not Exercise Assistive Devices: Cane, Denture - Upper, Denture - Lower, Glasses and Walker Allergies Allergies Allergy/AdvReac Type Severity Reaction Status Date / Time cefuroxime AdvReac Mild upset Verified 04/16/21 10:24 stomach Home Meds Home Medications Medication Instructions Recorded Confirmed amlodipine 5 mg tablet 5 mg PO QAM 02/09/18 04/16/21 albuterol sulfate 2.5 mg INHALATION Q4H PRN 08/08/19 04/16/21 albuterol sulfate 90 mcg/actuation 2 puffs INH Q4H PRN gm 08/08/19 04/16/21 aerosol inhaler atorvastatin 40 mg tablet 40 mg PO QAM 06/05/20 04/16/21 glipizide 2.5 mg tablet, extended 2.5 mg PO BID 06/05/20 04/16/21 release 24 hr losartan 100 1 tab PO QAM 06/05/20 04/16/21 mg-hydrochlorothiazide 25 mg tablet metformin 1,000 mg tablet 1,000 mg PO BID 06/05/20 04/16/21 pantoprazole 40 mg tablet,delayed 40 mg PO QAM 06/05/20 04/16/21 release gabapentin 300 mg capsule 900 mg PO TID cap 08/07/20 04/16/21 aspirin 81 mg tablet,delayed 81 mg PO QAM 11/15/20 04/16/21 release pramipexole 1 mg tablet (Mirapex) 1 mg PO BID 11/15/20 04/16/21 Previous Rx's Medication Instructions Recorded duloxetine 60 mg capsule,delayed 60 mg PO BID #180 cap 01/04/21 release (Cymbalta) lidocaine 5 % topical patch 1 patch TOP DAILY PRN #15 ea 01/13/21 oxycodone-acetaminophen 5 mg-325 1 tab PO Q8H PRN #90 tab 04/16/21 mg tablet (Percocet) buprenorphine 5 mcg/hour weekly 1 patch TRANSDERMAL Q7D #1 ea 04/17/21 transdermal patch (Butrans) Results & Data (ED) Vital Signs Vital Signs - 24 hr 05/06/21 15:31 05/06/21 20:07 Temperature 36.9 C Temperature Source Oral Pulse Rate 89 Pulse Rate [Left] 78 Pulse Rhythm [Left] Regular Pulse Strength [Left] Normal Respiratory Rate 20 18 Respiratory Effort / Characteristics Non-Labored Non-Labored Respiratory Depth Normal Normal Respiratory Pattern Regular Regular Blood Pressure 157/83 H Blood Pressure [Right Arm] 153/71 H Blood Pressure Mean 107 Blood Pressure Mean [Right Arm] 98 Blood Pressure Position [Right Arm] Sitting Pulse Oximetry 97 98 Oxygen Delivery Method Room Air Room Air Sepsis Recent Fever Within 48 Hours No Sepsis New/Unexplained Change in Mental Status No Sepsis Action Taken by Nursing No Action Required Laboratory Data Lab Results 05/06/21 Range/Units 22:24 SARS-CoV-2, RNA, NAAT NEGATIVE (NEGATIVE) Administered Medications Discontinued Medications Cyclobenzaprine HCl (Cyclobenzaprine Hcl 10 Mg Tab) 10 mg PO NOW STA Stop: 05/06/21 16:47 Last Admin: 05/06/21 17:02 Dose: 10 mg Documented by: [id number] Dexamethasone Sodium Phosphate (DexamethasonePf 10 Mg/Ml Vial) 5 mg IV NOW ONE Stop: 05/06/21 19:22 Last Admin: 05/06/21 19:57 Dose: 5 mg Documented by: [id number] Hydromorphone HCl (Hydromorphone Inj 0.5 Mg/0.5 Ml Syr) 0.5 mg IM NOW STA Stop: 05/06/21 16:47 Last Admin: 05/06/21 17:02 Dose: 0.5 mg Documented by: [id number] Hydromorphone HCl (Hydromorphone Inj 0.5 Mg/0.5 Ml Syr) 0.5 mg IV NOW STA Stop: 05/06/21 17:47 Last Admin: 05/06/21 18:27 Dose: 0.5 mg Documented by: [id number] Hydromorphone HCl (Hydromorphone Inj 1 Mg/Ml Syringe) 1 mg IV NOW STA Stop: 05/06/21 19:29 Last Admin: 05/06/21 19:57 Dose: 1 mg Documented by: [id number] Ketorolac Tromethamine (Ketorolac 30 Mg/Ml Vial) 30 mg IV NOW ONE Stop: 05/06/21 20:31 Last Admin: 05/06/21 20:48 Dose: 30 mg Documented by: [id number] Imaging Data My Impression: Preliminary CT lumbar spine per stat read review: Thoracolumbar spine post fusion changes down to L5 level. Posterior laminectomy changes at L3, L4, L5. Hypertrophy of the left transverse process of L5 serial articulating with the superior aspect of the left sacrum with vacuum disc phenomenon and subchondral sclerosis. Moderately severe convex left scoliosis of the upper lumbar spine apex at L1. Complete loss of disc height at L1-L2. Lucency around the left L2 level pedicle screw suggestive of motion. Inferior endplate irregularity, likely from prior hardware between L2-L3. The right pedicle screw at L3 is extending cephalad with erosive changes superior fluid along the right superior L3 vertebral body endplate. Probable disc spacers at L3-4. Diffuse posterior facets at right L4-5 and left L4-5. Severe left greater than right L5-S1 facet arthropathy. Impression: 1. Please clinically correlate for possible loosening the left L2 pedicle screw. 2. Right L3 pedicle screw extending cephalad with erosive changes with overlying bone in the right superior endplate of L3. 3. Multilevel extensive degenerative changes including a left transverse proc ess and superior aspect of sacrum. Radiologist:Avery Richradson MD Final results of the CT lumbar spine are pending [facility] radiologist review in the morning. Radiologist's Impression: Knee X-Ray 05/06/21 16:46 LEFT KNEE 3 VIEWS HISTORY: Severe left knee severe pain, posterior COMPARISON: None. FINDINGS: There is no fracture or dislocation. Small knee effusion. Vascular calcifications are noted. Mild to moderate tricompartmental osteoarthritis most pronounced at the patellofemoral joint.. No radiopaque foreign bodies. IMPRESSION: 1. No fractures. 2. Small knee effusion. 3. Mild to moderate tricompartmental osteoarthritis. ACT 112: Negative or not required by law. Electronically signed by: Oc Rosas M.D. 05/06/2021 5:22 PM Venous Doppler Study 05/06/21 16:46 LEFT LOWER EXTREMITY VENOUS DOPPLER HISTORY: Left leg severe pain, posterior knee, thigh, calf COMPARISON STUDY: None. FINDINGS: There is normal compressibility, flow, and augmentation within the left lower extremity deep venous system. IMPRESSION: No DVT within the left lower extremity. ACT 112: Negative or not required by law. Electronically signed by: Oc Rosas M.D. 05/06/2021 7:04 PM Discharge Plan Visit Data Chief Complaint: Leg Injury/Pain Stated Complaint: LEG ACHING, WEAKNESS, UNABLE TO WALK ED Provider: Nieves Vasquez ED Midlevel Provider: Priscilla Govea Discharge Problem: Lower extremity pain, left, Left lumbar radiculopathy Patient Disposition: Being Evaluated by Hospitalist Forms Stand Alone Forms: [facility] Prescriptions Prescriptions: No Action amlodipine 5 mg tablet 5 mg PO QAM RF: 0 oxycodone-acetaminophen [Percocet] 5-325 mg tablet 1 tab PO Q8H PRN (Reason: pain) Qty: 90 RF: 0 buprenorphine [Butrans] 5 mcg/hour patch weekly 1 patch transdermal Q7D Qty: 1 RF: 0 duloxetine [Cymbalta] 60 mg capsule,delayed release(DR/EC) 60 mg PO BID Qty: 180 RF: 0 albuterol sulfate 90 mcg/actuation HFA aerosol inhaler 2 puffs INH Q4H PRN (Reason: shortness of breath or wheezing) RF: 0 albuterol sulfate 2.5 mg /3 mL (0.083 %) solution for nebulization 2.5 mg inhalation Q4H PRN (Reason: Shortness Of Breath) RF: 0 atorvastatin 40 mg tablet 40 mg PO QAM RF: 0 metformin 1,000 mg tablet 1,000 mg PO BID RF: 0 losartan-hydrochlorothiazide 100-25 mg tablet 1 tab PO QAM RF: 0 glipizide 2.5 mg tablet extended release 24hr 2.5 mg PO BID RF: 0 pantoprazole 40 mg tablet,delayed release (DR/EC) 40 mg PO QAM RF: 0 gabapentin 300 mg capsule 900 mg PO TID RF: 0 aspirin 81 mg Tablet,Delayed Release (Dr/Ec) 81 mg PO QAM RF: 0 pramipexole [Mirapex] 1 mg tablet 1 mg PO BID RF: 0 lidocaine 5 % adhesive patch,medicated 1 patch TOP DAILY PRN (Reason: pain) Qty: 15 RF: 0 Referrals Referrals: Elda Ng CRNP [Primary Care Provider] -
[2021-05-06] MEDS ORDERED: HYDROmorphone INJ 0.5 MG/0.5 ML SYR IV STA (17:46)
--- NOTE | 2021-05-06 19:06 | Ultrasound Report ---
LEFT LOWER EXTREMITY VENOUS DOPPLER HISTORY: Left leg severe pain, posterior knee, thigh, calf COMPARISON STUDY: None. FINDINGS: There is normal compressibility, flow, and augmentation within the left lower extremity rosalie p venous system. IMPRESSION: No DVT within the left lower extremity. ACT 112: Negative or not required by law. Electronically signed by: Oc Rosas M.D. 05/06/2021 7:04 PM
[2021-05-06] MEDS ORDERED: dexAMETHasone**PF** 10 MG/ML VIAL IV ONE (19:21)
[2021-05-06] MEDS ORDERED: HYDROmorphone INJ 1 MG/ML SYRINGE IV STA (19:28)
[2021-05-06] MEDS ORDERED: KETOROLAC 30 MG/ML VIAL IV ONE (20:30)
[2021-05-06 23:45] LABS: Basophils # (auto) 0.03 K/uL (0-0.2); Basophils % (auto) 0.3 %; Eosinophils # (auto) 0.16 K/uL (0-0.5); Eosinophils % (auto) 1.4 %; Hematocrit (blood only) 42.6 % (37-47); Immature Granulocytes # (auto) 0.03 K/uL (0.00-0.02); Immature Granulocytes % (auto) 0.3 %; Lymphocytes % (auto) 37.3 %; Mean Corpuscular Hemoglobin 30.9 pg (25-34); Mean Corpuscular Hgb Conc 32.9 g/dL (32-36); Mean Platelet Volume 11.3 fL (7.4-10.4); Monocytes # (auto) 0.73 K/uL (0.11-0.59); Monocytes % (auto) 6.5 %; Neutrophils % (auto) 54.2 %; Platelet Count 234 K/uL (130-400); RDW Coefficient of Variation 14.2 % (11.5-14.5); RDW Standard Deviation 48.2 fL (36.4-46.3); Red Blood Count 4.53 M/uL (4.2-5.4); White Blood Count 11.25 K/uL (4.8-10.8)
[2021-05-06 23:55] LABS: Alanine Aminotransferase 33 (12-78); Albumin Level 3.9 gm/dl (3.4-5.0); Aspartate Aminotransferase 29 U/L (15-37); BUN Creatinine Ratio 18.6 (10-20); Blood Urea Nitrogen 17 mg/dl (7-18); C Reactive Protein < 0.29 mg/dl (0-0.29); Calcium 9.8 mg/dl (8.5-10.1); Carbon Dioxide 30 mmol/L (21-32); Chloride 103 mmol/L (98-107); Est GFR (African American) 72.7 ml/min; Est GFR (Non-African American) 62.7 ml/min; Glucose 115 mg/dl (70-99); Potassium 3.1 mmol/L (3.5-5.1); Sodium 142 mmol/L (136-145)
[2021-05-06 23:58] LABS: Albumin Globulin Ratio 0.9 (0.9-2); Alkaline Phosphatase 94 U/L (45-117); Bilirubin,Total 0.4 mg/dl (0.2-1); Globulin 4.2 gm/dl (2.5-4.0); Total Protein 8.1 gm/dl (6.4-8.2)
--- NOTE | 2021-05-07 00:17 | History & Physical Report ---
Date of Service May 07, 2021 Assessment & Plan (1) Lower extremity pain, left: Plan: 71 yo F w/ pMHx. of DM, anxiety, depression, lumbar spine fusion, RLS, prior DVT, sleep apnea, fatty liver, HLD presents with left leg pain Left leg pain, severe potentially due to ruptured bakers cyst based on history and limited physical exam differential also includes injury to the MCL injury or Meniscal tear or referred back pain ordered inflammatory markers and cbc to evaluate for hardware failure or infection of lumbar spine although symptoms seem to localize to the left knee Duplex ultrasound negative for DVT XR left knee with effusion and tricompartmental OA STAT RAD CT lumbar spine with finding of L2 pedicle screw possible loosening and degenerative changes - continue home Percocet, lidocaine patches, and heat for pain - if limited improvement in pain would consider PT and further imaging at that time DM s/p steroids - A1c ordered - holding oral agents - sliding scale insulin ordered HTN - continue Amlodipine, Losartan-HCTZ HLD - continue Atorvastatin Anxiety, depression - continue home medication Restless leg syndrome - continue home medications UTI - continue Macrobid Diet: HH, DM II DVT: Lovenox Code: full History of Present Illness Chief Complaint: left knee pain Primary Care Provider: SUMMER Murry Rosa Elizabeth has a past medical history of DM, anxiety, depression, lumbar spine fusion, RLS, prior DVT, sleep apnea, fatty liver, HLD presents with left leg pain. At 12:30 she stood up from sitting and developed sudden pain and a pop behind her left knee. The pain then went down to her toes and up to her groin. She has been unable to bear weight. She has prior back pain and lumbar fusion but explained that this does not feel like her back pain and has never had leg pain with her back pain in the past. She was recently seen by her PCP for UTI symptoms and was started on Macrobid for this. ED course: Cyclobenzaprine, Dexamethasone, Dilaudid, Toradol Allergies Allergy/AdvReac Type Severity Reaction Status Date / Time cefuroxime AdvReac Mild upset Verified 05/06/21 23:38 stomach Home Medications Medication Instructions Recorded Confirmed Type amlodipine 5 mg tablet 5 mg PO QAM 02/09/18 05/06/21 History albuterol sulfate 2.5 mg INHALATION Q4H PRN 08/08/19 05/06/21 History albuterol sulfate 90 mcg/actuation 2 puffs INH Q4H PRN gm 08/08/19 05/06/21 History aerosol inhaler atorvastatin 40 mg tablet 40 mg PO QAM 06/05/20 05/06/21 History glipizide 2.5 mg tablet, extended 2.5 mg PO BID 06/05/20 05/06/21 History release 24 hr losartan 100 1 tab PO QAM 06/05/20 05/06/21 History mg-hydrochlorothiazide 25 mg tablet metformin 1,000 mg tablet 1,000 mg PO BID 06/05/20 05/06/21 History pantoprazole 40 mg tablet,delayed 40 mg PO QAM 06/05/20 05/06/21 History release gabapentin 300 mg capsule 900 mg PO TID cap 08/07/20 05/06/21 History aspirin 81 mg tablet,delayed 81 mg PO QAM 11/15/20 05/06/21 History release pramipexole 1 mg tablet (Mirapex) 1 mg PO BID 11/15/20 05/06/21 History duloxetine 60 mg capsule,delayed 60 mg PO BID #180 cap 01/04/21 05/06/21 Rx release (Cymbalta) lidocaine 5 % topical patch 1 patch TOP DAILY PRN #15 ea 01/13/21 05/06/21 Rx oxycodone-acetaminophen 5 mg-325 1 tab PO Q8H PRN #90 tab 04/16/21 05/06/21 Rx mg tablet (Percocet) buprenorphine 5 mcg/hour weekly 1 patch TRANSDERMAL Q7D #1 ea 04/17/21 05/06/21 Rx transdermal patch (Butrans) nitrofurantoin 100 mg PO BID 05/06/21 05/06/21 History monohydrate/macrocrystals 100 mg capsule (Macrobid) Past Med/Surg History Medical History Anemia Degenerative disc disease Diabetes mellitus, type 2 Diabetic peripheral neuropathy associated with type 2 diabetes mellitus Fatty liver GERD (gastroesophageal reflux disease) History of COVID-19 04/2020 (HOSPITALIZED IN [facility]) History of DVT (deep vein thrombosis) >35 YEARS AGO. PT HIT WITH A BOARD/BAT TO THE LEG AND DEVELOPED CLOT. NO ISSUES SINCE. History of kidney stones Hx of fall 04/2020>FELL AND HOSPITALIZED FOR COVID/HYPOXIA AND "BROKE MY BACK>SENT TO [facility]. WAS IN A DRUG INDUCED COMA FOR WEEKS/HAD BACK SURGERY". Hx of gout Hyperlipidemia Hypertension Intractable low back pain Intractable neuropathic pain of lower extremity Lumbar spinal stenosis Lumbar spondylosis Neurogenic claudication due to lumbar spinal stenosis Restless leg syndrome Sleep apnea NO DEVICE USED Surgical History H/O varicose vein ligation and stripping Saphenous vein History of appendectomy 10/19/12 - laparoscopic by Dr Herrera History of back surgery 4 TOTAL BACK SURGERIES (PT UNSURE OF DETAILS) History of section X 3 History of colonoscopy 10/2004 - Dr Carrion. Neg. Repeat in 5 years. History of colonoscopy History of esophagogastroduodenoscopy (EGD) History of herniorrhaphy 02/21/15 - Repair of incarcerated incisional hernia with Surgimesh 10cm in diameter resection of incarcerated omentum by Dr Knutson History of open reduction and internal fixation (ORIF) procedure RT ANKLE History of tooth extraction Family History Mother Osteoporosis Heart disease Cancer Hypertension Brother Diabetes Family history of diabetes mellitus Daughter Cervical cancer Father Parkinsons Other No family history of adverse response to anesthesia Denies family history of Ovarian cancer Breast cancer Colorectal cancer Stroke Asthma Social History Smoking Status: Never smoker Second Hand Exposure: No; Hx Alcohol Use: No Preferred Language: Nam[place]ian Communication Ability: Effective Visual Impairment: No Limitations Hearing Ability: Normal 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: No Beliefs That Will Affect Care: None marital status: Current Living Situation: Spouse current occupational status: retired current occupation: Retired Feels Safe at Home: Yes Dental Care, Regularly: Yes Physical Activity Frequency: Does not Exercise Assistive Devices: Cane, Denture - Upper, Denture - Lower, Glasses and Walker Review of Systems Review of Systems: Constitutional: denies fevers, chills MSK: denies trauma to the area Cardiac: denies chest pain, palpitations Pulm.: denies cough, shortness of breath GI: denies constipation, diarrhea, blood in stool : admits dysuria Physical Exam Constitutional: well developed and well nourished Eyes: PERRL, conjunctivae normal, anicteric sclerae ENMT: external ear and nose normal, oropharynx normal Neck: normal visual inspection Respiratory: normal respiratory effort, lungs clear to auscultation Cardiovascular: RRR, no murmur, no edema Gastrointestinal (Abdomen): normal bowel sounds, soft, nontender, no hepatosplenomegaly Musculoskeletal: left knee: exam limited due to pain with movement of the leg Inspection: significant swelling of the knee without bruising Palpation: tender to palpation at posterior and medial left knee Strength: limited due to pain in the left Special testing: - anterior drawer and posterior drawer with hard endpoint - Mikey negative - Melvina was painful without crunching, locking or catching although limited due to pain - pain and laxity with valgus stress > varus stress Skin: no rashes, warm and dry Psychiatric: Orientation: alert Results & Data Results & Data ([facility]) Vital Signs (Past 12 Hours) Vital Signs Temp Pulse Pulse Resp BP BP Pulse Ox 05/06/21 20:07 78 18 153/71 H 98 05/06/21 15:31 36.9 C 89 20 157/83 H 97 CBC Results Results Complete Blood Count Results: RBC 4.45 M/uL (4.2-5.4) 05/07/21 WBC 8.33 K/uL (4.8-10.8) 05/07/21 Hgb 13.8 g/dL (12.0-16.0) 05/07/21 Hct 40.9 % (37-47) 05/07/21 Plt Count 219 K/uL (130-400) 05/07/21 Chemistry (BMP) Results BMP Results: Sodium 142 mmol/L (136-145) 05/06/21 Potassium 3.1 mmol/L (3.5-5.1) L 05/06/21 Chloride 103 mmol/L (98-107) 05/06/21 BUN 17 mg/dl (7-18) 05/06/21 Creatinine 0.93 mg/dl (0.6-1.2) 05/06/21 Glucose 115 mg/dl (70-99) H 05/06/21 Code Status & VTE Plan VTE Prophylaxis Plan VTE Prophylaxis will be ordered: Yes Supervising Physician Co-Signing Physician Notes Patient seen and examined, chart reviewed, case discussed with Dr. Acevedo and I agree with the assessment and plan as above. Left knee pain, unable to walk, happened acutely when patient stood and felt a "pop" - pain radiating down calf and into thigh as well Exam with posterior swelling in popliteal fossa. Extremely tender making full knee exam difficulty - however no obvious anterior or posterior laxity Remainder of physical exam is unremarkable Labs and images reviewed Doppler Negative for DVT X ray with OA an deffusion Assessment/Plan -Pain control, warm compresses -Check ESR, CRP, CK -If no improvement may consider MRI Resident Activity Tracking Resident Involvement: Resident Care Provided Care Provided: Adult [facility]
[2021-05-07] MEDS ORDERED: GLUCOSE 10 TABS/TUBE PO PRN (04:04)
[2021-05-07] MEDS ORDERED: POLYETHYLENE (MIRALAX) 17 GM PACK PO PRN (04:04)
[2021-05-07] MEDS ORDERED: GLUCOSE 40% GEL 15 GM TUBE PO PRN (04:04)
[2021-05-07] MEDS ORDERED: DEXTROSE 50% 50 ML SYRINGE IV PRN (04:04)
[2021-05-07] MEDS ORDERED: CARBOHYDRATES FOR HYPOGLYCEMIA PO PRN (04:04)
[2021-05-07] MEDS ORDERED: GLUCAGON FOR INJ 1 MG VIAL SQ PRN (04:04)
[2021-05-07] MEDS ORDERED: ACETAMINOPHEN 325 MG TAB PO PRN (04:04)
[2021-05-07] MEDS ORDERED: LIDOCAINE 5% 1 PATCH TD PRN (04:04)
[2021-05-07] MEDS ORDERED: PATIENT'S HEIGHT AND/OR WEIGHT NEEDED STA (04:10)
[2021-05-07] MEDS: oxyCODONE/ACETAMINOPHEN 5mg/325mg TAB PO PRN ×2 (04:26→13:51)
[2021-05-07 05:16] LABS: Basophils # (auto) 0.01 K/uL (0-0.2); Basophils % (auto) 0.1 %; Hematocrit (blood only) 40.9 % (37-47); Hemoglobin 13.8 g/dL (12.0-16.0); Immature Granulocytes # (auto) 0.01 K/uL (0.00-0.02); Immature Granulocytes % (auto) 0.1 %; Lymphocytes # (auto) 2.14 K/uL (1.2-3.4); Lymphocytes % (auto) 25.7 %; Mean Corpuscular Hgb Conc 33.7 g/dL (32-36); Mean Corpuscular Volume 91.9 fL (80-100); Mean Platelet Volume 10.6 fL (7.4-10.4); Monocytes # (auto) 0.06 K/uL (0.11-0.59); Monocytes % (auto) 0.7 %; Neutrophils # (auto) 6.11 K/uL (1.4-6.5); Neutrophils % (auto) 73.4 %; Platelet Count 219 K/uL (130-400); RDW Coefficient of Variation 13.9 % (11.5-14.5); RDW Standard Deviation 46.5 fL (36.4-46.3); Red Blood Count 4.45 M/uL (4.2-5.4); White Blood Count 8.33 K/uL (4.8-10.8)
--- NOTE | 2021-05-07 05:50 | Billing Data ---
Date of Service May 07, 2021 Coding Level of Care Code INT OBSERVATION CARE 72M LVL 3
[2021-05-07] MEDS: ENOXAPARIN INJ 40 MG/0.4 ML SYR SQ SCH ×2 (06:36→20:51)
[2021-05-07 07:39] LABS: Estimated Average Glucose 171 mg/dl; Hemoglobin A1C 7.6 % (4.5-5.6)
--- NOTE | 2021-05-07 07:47 | CT Scan Report ---
CT lumbar spine wo con CLINICAL HISTORY: severe pain LLE, history Lumbar spinal fusion/sten COMPARISON STUDY: 06/09/2020 CT DOSE: 628.39 mGy.cm TECHNIQUE: Standard CT of the Lumbar Spine was performed without IV contrast. A dose lowering techni que was utilized adhering to the principles of ALARA. FINDINGS: Bones: Bones are osteopenic. Compared to previous examination, the patient is again status post inter pedicular screw and jaswinder fixation from at least T10-L5 with a levoscoliotic curve again seen. There is fusion at the L1-2 level with old compression deformities present. There is no evidence for an acute fracture or malalignment. Laminectomies are present from L2 through L5. The heights of the remaining lumbar vertebral bodies are maintained. The vertebral bodies are in anatomic alignment. Disc spaces: Disc space narrowing is again seen throughout the lumbar spine. Facet joints: Degenerative facet joint disease is also again seen throughout the lumbar spine. Degene rative changes are again seen involving the SI joints bilaterally. Soft tissues: The prevertebral soft tissues are within normal limits. IMPRESSION: Compared to the previous examination, there is no significant interval change identified. Osteopenia with marked degenerative changes status post previous internal fixation and laminectomies are present. No acute osseous pathology is identified. ACT 112: Negative or not required by law. Electronically signed by: Orlando Tan M.D. 05/07/2021 7:46 AM
[2021-05-07] MEDS: INSULIN ASPART 100 UNITS/ML VIAL SC SCH ×4 (08:30→20:56)
[2021-05-07] MEDS: PANTOprazole 40 MG TAB PO SCH (08:44)
[2021-05-07] MEDS: LOSARTAN/HCTZ 50/12.5MG TAB PO SCH (08:44)
[2021-05-07] MEDS: NITROFURANTOIN MONOHYDRATE 100 MG CAP PO SCH ×2 (08:44→20:51)
[2021-05-07] MEDS: DULoxetine HCL 60 MG CAP PO SCH ×2 (08:45→20:51)
[2021-05-07] MEDS: GABAPENTIN 300 MG CAP PO SCH ×3 (08:45→20:51)
[2021-05-07] MEDS: amLODIPine BESYLATE 5 MG TAB PO SCH (08:45)
[2021-05-07] MEDS: ASPIRIN 81 MG ECTAB PO SCH (08:45)
[2021-05-07] MEDS: ATORVASTATIN 40 MG TAB PO SCH (08:45)
[2021-05-07] MEDS ORDERED: PRAMIPEXOLE DIHYDROCHLO 0.5 MG TAB PO SCH (09:00)
--- NOTE | 2021-05-07 14:30 | Hospitalist Progress Note ---
Date of Service May 07, 2021 Assessment & Plan (1) Lower extremity pain, left: Plan: Suspected left lumbar radiculopathy from chronic low back problems. Orthopedic consultation pending. Start parenteral steroid therapy. Supportive care. Pain control measures. Physical therapy evaluation. Venous Doppler negative for DVT. XR left knee with effusion and tricompartmental OA STAT RAD CT lumbar spine with finding of L2 pedicle screw possible loosening and degenerative changes DM , type 2: Sliding scale coverage. Expect elevated glucose associated with steroid use. Sliding scale coverage as needed. HTN - continue Amlodipine, Losartan-HCTZ HLD - continue Atorvastatin Anxiety, depression - continue home medication Restless leg syndrome - continue home medications UTI - continue Macrobid Diet: HH, DM II DVT: Lovenox Code: full Plan: Disposition: Eventual discharge back to home Admission and Anticipated Discharge Date Admission Date: May 06, 2021 Subjective Alert and oriented. Her pain is radiating down the left leg to the foot. It sounds radiculopathic in nature, probably sciatica from her chronic back problems. She did denies any acute lower back pain however. Orthopedic consult pending. We will start parenteral steroid therapy. Venous Doppler of the left lower extremity is negative for DVT. Hopefully she can go home soon Review of Systems Review of Systems: Constitutional-no fever or chills ENT-no blurred vision, no double vision, no epistaxis, no sore throat Respiratory-no cough, no wheezing, no shortness of breath Cardiac-no palpitations, no chest pain, no syncope GI-no nausea, vomiting, diarrhea, melena, hematochezia -no urinary retention, no urinary incontinence, no dysuria, no hematuria Musculoskeletal-left leg pain as described in history of present illness Skin-no bruising, no rashes, no pruritus Neuro-no isolated weakness, no paresthesia, no weakness Psych-no depression, no anxiety Physical Exam Physical Exam: General-alert and oriented x3, no fevers, no chills HEENT-head atraumatic and normocephalic, TMs intact bilaterally, pupils equal and reactive to light, extraocular muscles intact Neck-no lymphadenopathy or thyromegaly, trachea midline Chest-clear to auscultation percussion. No rales wheezing or rhonchi Cardiac-regular rate and rhythm, normal S1 and S2, no murmurs Abdomen-normal bowel sounds, nontender, no hepatosplenomegaly Extremities-no cyanosis, clubbing, or edema. Mild weakness noted left lower ext remity, especially ankle flexion and dorsiflexion Neuro-cranial nerves II through XII intact, motor and sensory function within normal limits, no focal deficits Psych-normal affect, normal mood Results & Data Results & Data ([facility]) Vital Signs (Past 12 Hours) Vital Signs Temp Pulse Resp BP Pulse Ox 05/07/21 13:46 36.7 C 81 18 138/75 95 05/07/21 11:31 36.9 C 80 20 130/72 92 05/07/21 08:51 36.2 C L 82 20 130/75 95 05/07/21 04:28 82 18 114/93 95 Laboratory Results 05/07/21 05:05 05/06/21 20:02 PG Care Time/CCT Total # of Minutes Spent Total Time Spent with Patient: Total time spent is greater than 50% in coordination of care (as documented) at patient's floor/unit and/or counseling patient: Coding Level of Care Code 63433 Subseq Hosp Care Lvl 3 Diagnoses Lower extremity pain, left M79.605
[2021-05-07] MEDS: methylPREDNISolone 60 MG in SYRINGE 0 ML IV SCH (15:02)
[2021-05-07] MEDS: PRAMIPEXOLE DIHYDROCHLO 0.5 MG TAB PO SCH ×2 (16:42→20:51)
--- NOTE | 2021-05-07 17:38 | Orthopedic Consultation ---
Date of Consultation May 07, 2021 Assessment & Plan (1) Lower extremity pain, left: X-rays reviewed. Case discussed briefly with Dr. Jones who will likely see patient this evening. Currently her knee pain is much better today. She has been started on IV methylprednisolone which seems to been helping her however she continues to have full left lower extremity pain which may be radicular in nature. I will plan on discussing the case with Dr. Lizarraga as well who may be able to see her tomorrow and review her films and see her in consult. Continue IV steroids for now. Continue weightbearing as tolerated on left lower extremity bathroom privileges. History of Present Illness Reason for Consultation: Left knee pain. Attending Physician: Jefe Christianson MD History of Present Illness Patient is a 71-year-old white female who was admitted last night for severe left knee pain. She has a past medical history of DM, anxiety, depression, lumbar spine fusion, RLS, prior DVT, sleep apnea, fatty liver, HLD. Yesterday evening she stood up from a sitting position and developed sudden pain and a pop behind her left knee. Patient states that when she was getting up out of a chair yesterday evening, she felt or heard a pop in the back of her knee and apparently had severe pain that radiated down into the foot as well as up into her hip and groin. She had difficulty ambulating and putting weight on the left lower extremity. Nothing was relieving the pain and she came to the emergency room to be seen. X-rays were taken of the left knee which showed no fractures and showed mild to moderate osteoarthritis with a small effusion. Patient has a history of lumbar surgery approximately 1 year ago after a fall which resulted in fractured vertebrae. She states that she was in a coma for approximately 1 to 2 weeks at [facility] in [place] and following her coming out of her coma, she was then taken to surgery the following week and had surgery on her back. She states that since that time she has had some weakness in the left lower extremity. She is also diabetic and has history of neuropathy of both feet. Today she states that she is feeling a little better. She is no longer having the severe pain in her left knee. She states she does have pain but it is not what it was like yesterday. She is still having some difficulty in weightbearing on the left lower extremity. She states that she now has pain that radiates from her buttock all the way down to her foot. Sometimes the pain is below the knee where it starts and goes down to the foot. Overall she feels she is a little better today and apparently was started on methylprednisolone 60 mg IV every 8 hours today. She does do note a fall approximately 2 weeks ago which she landed on both of her knees. We have been asked to see her for left knee pain. Allergies Allergy/AdvReac Type Severity Reaction Status Date / Time cefuroxime AdvReac Mild upset Verified 05/06/21 23:38 stomach Home Medications Medication Instructions Recorded Confirmed Type amlodipine 5 mg tablet 5 mg PO QAM 02/09/18 05/06/21 History albuterol sulfate 2.5 mg INHALATION Q4H PRN 08/08/19 05/06/21 History albuterol sulfate 90 mcg/actuation 2 puffs INH Q4H PRN gm 08/08/19 05/06/21 History aerosol inhaler atorvastatin 40 mg tablet 40 mg PO QAM 06/05/20 05/06/21 History glipizide 2.5 mg tablet, extended 2.5 mg PO BID 06/05/20 05/06/21 History release 24 hr losartan 100 1 tab PO QAM 06/05/20 05/06/21 History mg-hydrochlorothiazide 25 mg tablet metformin 1,000 mg tablet 1,000 mg PO BID 06/05/20 05/06/21 History pantoprazole 40 mg tablet,delayed 40 mg PO QAM 06/05/20 05/06/21 History release gabapentin 300 mg capsule 900 mg PO TID cap 08/07/20 05/06/21 History aspirin 81 mg tablet,delayed 81 mg PO QAM 11/15/20 05/06/21 History release pramipexole 1 mg tablet (Mirapex) 1 mg PO BID 11/15/20 05/06/21 History duloxetine 60 mg capsule,delayed 60 mg PO BID #180 cap 01/04/21 05/06/21 Rx release (Cymbalta) lidocaine 5 % topical patch 1 patch TOP DAILY PRN #15 ea 01/13/21 05/06/21 Rx oxycodone-acetaminophen 5 mg-325 1 tab PO Q8H PRN #90 tab 04/16/21 05/06/21 Rx mg tablet (Percocet) buprenorphine 5 mcg/hour weekly 1 patch TRANSDERMAL Q7D #1 ea 04/17/21 05/06/21 Rx transdermal patch (Butrans) nitrofurantoin 100 mg PO BID 05/06/21 05/06/21 History monohydrate/macrocrystals 100 mg capsule (Macrobid) Patient History Medical History Anemia Degenerative disc disease Diabetes mellitus, type 2 Diabetic peripheral neuropathy associated with type 2 diabetes mellitus Fatty liver GERD (gastroesophageal reflux disease) History of COVID-19 04/2020 (HOSPITALIZED IN [facility]) History of DVT (deep vein thrombosis) >35 YEARS AGO. PT HIT WITH A BOARD/BAT TO THE LEG AND DEVELOPED CLOT. NO ISSUES SINCE. History of kidney stones Hx of fall 04/2020>FELL AND HOSPITALIZED FOR COVID/HYPOXIA AND "BROKE MY BACK>SENT TO [facility] AT [place]. WAS IN A DRUG INDUCED COMA FOR WEEKS/HAD BACK SURGERY". Hx of gout Hyperlipidemia Hypertension Intractable low back pain Intractable neuropathic pain of lower extremity Lumbar spinal stenosis Lumbar spondylosis Neurogenic claudication due to lumbar spinal stenosis Restless leg syndrome Sleep apnea NO DEVICE USED Surgical History H/O varicose vein ligation and stripping Saphenous vein History of appendectomy 10/19/12 - laparoscopic by Dr Herrera History of back surgery 4 TOTAL BACK SURGERIES (PT UNSURE OF DETAILS) History of section X 3 History of colonoscopy 10/2004 - Dr Carrion. Neg. Repeat in 5 years. History of colonoscopy History of esophagogastroduodenoscopy (EGD) History of herniorrhaphy 02/21/15 - Repair of incarcerated incisional hernia with Surgimesh 10cm in diameter resection of incarcerated omentum by Dr Knutson History of open reduction and internal fixation (ORIF) procedure RT ANKLE History of tooth extraction Family History Mother Osteoporosis Heart disease Cancer Hypertension Brother Diabetes Family history of diabetes mellitus Daughter Cervical cancer Father Parkinsons Other No family history of adverse response to anesthesia Denies family history of Ovarian cancer Breast cancer Colorectal cancer Stroke Asthma Social History (Reviewed 05/07/21 @ 17:37 by NICCI Quiñonez Smoking Status: Never smoker Second Hand Exposure: No; Hx Alcohol Use: No Hx Substance Use: No Preferred Language: [place] Communication Ability: Effective Visual Impairment: No Limitations Hearing Ability: Normal Director Of Pharmacy Required: No Beliefs That Will Affect Care: None marital status: Current Living Situation: Spouse current occupational status: retired current occupation: Retired Feels Safe at Home: Yes Dental Care, Regularly: Yes Physical Activity Frequency: Does not Exercise Assistive Devices: Cane and Walker Physical Exam Physical Exam: On examination the patient is a 71-year-old well-developed well-nourished white female who is pleasant and cooperative, no acute distress, alert and oriented x3. She states that she is feeling a little better today however she continues to have the left lower extremity pain but not to the extent that it was yesterday. On examination of her left lower extremity, there is no erythema or overt warmth to the left knee compared to the right. She does have a mild effusion noted of the left knee compared to the right. I am able to palpate the left knee without her complaining of pain. She states that the knee does feel a little bit sore. I am able to get her to relax to let me do some range of motion of the left knee. Gentle range of motion of the left knee does not appear to be painful to her. I can take her through extension into approximately 60 to 70 of flexion without crepitus. She states that she was unable to do that yesterday. Patient is able to do a straight leg raise however she is only able to lift her leg off of the bed about 4 in. before she states that it is causing too much discomfort in her low back. She states that today that the whole leg on the left side is hurting. Palpation below the knee over the anterior tibia proves to have some discomfort on palpation that goes down to the foot. She does have neuropathy of both feet secondary to her diabetes. She has notable weakness of dorsiflexion and plantarflexion of the left foot compared to the right. She states that this has been her normal since her back surgery. This has not worsened since her admission. During range of motion of her left knee pain we will also take her through gentle range of motion of her left hip to approximately 90 which does not appear to cause her any discomfort in the hip itself. She has no pain on palpation over the lateral aspect of the hip at this time. Other than her decreased strength of her dorsiflexion and plantarflexion of the left foot and her bilateral neuropathy, there is no gross motor or sensory loss seen at this time. Right lower extremity is unaffected at this time as far as increased pain. Upper extremities are unaffected this time as well. Distal pulses are equal bilaterally of the upper and lower extremities. Results & Data ([facility]) Vital Signs (Past 12 Hours) Vital Signs Temp Pulse Resp BP Pulse Ox 05/07/21 13:46 36.7 C 81 18 138/75 95 05/07/21 11:31 36.9 C 80 20 130/72 92 05/07/21 08:51 36.2 C L 82 20 130/75 95 Diagnostic Findings Patient:BRISEYDA PORTILLO Admit Date:05/06/21 MR#:[id number] Address1:[address] [place] [address] Acct ID:[id number] Address2:[place] [address] Date:1950 [facility] Zip:[place] [id number] Age:71 Location:ED Sex:F Room/Bed: Att Phy: Diagnosis:LEG ACHING, WEAKNESS, UNABLE TO WALK Nasrin Phy:Elda Ng CRNP Service Date:05/06/21 [facility] Phy: Interpreting Phy:Oc Rosas MDAdmit Phy: Ordering Phy:Priscilla Govea PA-C cc: ~ LEFT KNEE 3 VIEWS HISTORY: Severe left knee severe pain, posterior COMPARISON: None. FINDINGS: There is no fracture or dislocation. Small knee effusion. Vascular calcifications are noted. Mild to moderate tricompartmental osteoarthritis most pronounced at the patellofemoral joint.. No radiopaque foreign bodies. IMPRESSION: 1. No fractures. 2. Small knee effusion. 3. Mild to moderate tricompartmental osteoarthritis. CT lumbar spine wo con CLINICAL HISTORY: severe pain LLE, history Lumbar spinal fusion/sten COMPARISON STUDY: 06/09/2020 CT DOSE: 628.39 mGy.cm TECHNIQUE: Standard CT of the Lumbar Spine was performed without IV contrast. A dose lowering technique was utilized adhering to the principles of ALARA. FINDINGS: Bones: Bones are osteopenic. Compared to previous examination, the patient is again status post interpedicular screw and jaswinder fixation from at least T10-L5 with a levoscoliotic curve again seen. There is fusion at the L1-2 level with old compression deformities present. There is no evidence for an acute fracture or malalignment. Laminectomies are present from L2 through L5. The heights of the remaining lumbar vertebral bodies are maintained. The vertebral bodies are in anatomic alignment. Disc spaces: Disc space narrowing is again seen throughout the lumbar spine. Facet joints: Degenerative facet joint disease is also again seen throughout the lumbar spine. Degenerative changes are again seen involving the SI joints bilaterally. Soft tissues: The prevertebral soft tissues are within normal limits. IMPRESSION: Compared to the previous examination, there is no significant interval change identified. Osteopenia with marked degenerative changes status post previous internal fixation and laminectomies are present. No acute osseous pathology is identified.
[2021-05-08] MEDS: oxyCODONE/ACETAMINOPHEN 5mg/325mg TAB PO PRN (00:02)
[2021-05-08] MEDS: methylPREDNISolone 60 MG in SYRINGE 0 ML IV SCH ×2 (06:11)
[2021-05-08] MEDS: PANTOprazole 40 MG TAB PO SCH (08:25)
[2021-05-08] MEDS: LOSARTAN/HCTZ 50/12.5MG TAB PO SCH (08:25)
[2021-05-08] MEDS: amLODIPine BESYLATE 5 MG TAB PO SCH (08:25)
[2021-05-08] MEDS: ASPIRIN 81 MG ECTAB PO SCH (08:25)
[2021-05-08] MEDS: DULoxetine HCL 60 MG CAP PO SCH (08:26)
[2021-05-08] MEDS: ENOXAPARIN INJ 40 MG/0.4 ML SYR SQ SCH (08:26)
[2021-05-08] MEDS: NITROFURANTOIN MONOHYDRATE 100 MG CAP PO SCH (08:26)
[2021-05-08] MEDS: GABAPENTIN 300 MG CAP PO SCH (08:26)
[2021-05-08] MEDS: ATORVASTATIN 40 MG TAB PO SCH (08:26)
[2021-05-08] MEDS: INSULIN ASPART 100 UNITS/ML VIAL SC SCH ×2 (08:28→12:36)
--- NOTE | 2021-05-08 10:57 | Communication Note ---
Date of Service: May 08, 2021 Seen in follow-up after seeing her yesterday for her left knee pain. Patient was started on IV methylprednisolone yesterday of which she had seen some i mprovement. This morning she is sitting in her chair at the bedside. She appears comfortable. She states that she is getting a little bit better each day. She continues to have the left lower extremity discomfort that is coming from low back to her foot off and on. She is able to take the left knee through active range of motion without much in the way of discomfort. States that she is able to ambulate well with a walker. She continues to have left lower extremity discomfort with weightbearing but is slowly getting better. I feel that this was an exacerbation of her low back pain and radiculopathy that she has had in the past. Discussed the case with Dr. Lizarraga who has reviewed her CT scan. Nothing urgent noted on CT scan although she does have one or two screws that appear to be loosening as well as some facet changes noted in the lower lumbar area. With the patient slowly getting better pain relief and able to ambulate with a walker , the plan will be to have the patient discharged home on a Medrol Dosepak. She should follow up with her surgeon at [facility] for a check up for her LE pain. If she is unable to follow up with them, she can make an appointment to see Dr. Lizarraga or one of his PA's.
--- NOTE | 2021-05-08 11:15 | Discharge Summary ---
Date of Service May 08, 2021 Admission HPI Per Admitting Provider Rosa Elizabeth has a past medical history of DM, anxiety, depression, lumbar spine fusion, RLS, prior DVT, sleep apnea, fatty liver, HLD presents with left leg pain. At 12:30 she stood up from sitting and developed sudden pain and a pop behind her left knee. The pain then went down to her toes and up to her groin. She has been unable to bear weight. She has prior back pain and lumbar fusion but explained that this does not feel like her back pain and has never had leg pain with her back pain in the past. She was recently seen by her PCP for UTI symptoms and was started on Macrobid for this. ED course: Cyclobenzaprine, Dexamethasone, Dilaudid, Toradol Principal Diagnosis Left lumbar radiculopathy with left leg weakness Discharge Exam General-alert and oriented x3, no fevers, no chills HEENT-head atraumatic and normocephalic, TMs intact bilaterally, pupils equal and reactive to light, extraocular muscles intact Neck-no lymphadenopathy or thyromegaly, trachea midline Chest-clear to auscultation percussion. No rales wheezing or rhonchi Cardiac-regular rate and rhythm, normal S1 and S2, no murmurs Abdomen-normal bowel sounds, nontender, no hepatosplenomegaly Extremities-no cyanosis, clubbing, or edema Neuro-cranial nerves II through XII intact, left leg weakness has improved since admission. She continues to have mild weakness of left foot dorsiflexion and plantarflexion however. She is able to ambulate now with the use of a walker. Psych-normal affect, normal mood Discharge Data Allergies Allergy/AdvReac Type Severity Reaction Status Date / Time cefuroxime AdvReac Mild upset Verified 05/06/21 23:38 stomach Consultations 05/06/21 21:56 ED Decision to Admit Stat 05/07/21 04:04 Consult Health Information Management Routine 05/07/21 09:20 Consult Orthopedic Surgery Routine Ordered Studies 05/06/21 16:46 US venous doppler LE LT Stat 05/06/21 19:28 CT lumbar spine wo con Urgent Hospital Course (1) Lower extremity pain, left: Left lumbar radiculopathy from chronic low back problems. Orthopedic consultation noted. No further inpatient testing recommended. She will need outpatient follow-up. Good response to parenteral steroid therapy. We will switch to prednisone taper at discharge. Supportive care. Pain control measures. Physical therapy appreciated . Venous Doppler negative for DVT. XR left knee with effusion and tricompartmental OA STAT RAD CT lumbar spine with finding of L2 pedicle screw possible loosening and degenerative changes. She will need further outpatient follow-up with her back surgeon DM , type 2: Sliding scale coverage. Expect elevated glucose associated with steroid use. Sliding scale coverage as needed. HTN - continue Amlodipine, Losartan-HCTZ HLD - continue Atorvastatin Anxiety, depression - continue home medication Restless leg syndrome - continue home medications UTI - continue Macrobid Diet: HH, DM II DVT: Lovenox Code: full Disposition: discharge back to home today, May 08, on a prednisone tapering dose. Total Time Total Time Spent Total Time Spent (In Minutes): 35 Discharge Plan Discharge Items Patient Disposition: Home - Self-Care Reason For Visit: LEFT LEG INJURY Discharge Diagnosis: Left lumbar radiculopathy with left leg weakness Activity: Resume your previous activity Non-emergency contact: Primary Care Provider Call non-emergency contact if: you have any medication questions Follow-up/Referrals: Elda Ng CRNP [Primary Care Provider] - Diet: Carb Consistent or DM2 and Heart Healthy Addtl Attending Provider Instructions: Take prednisone in a tapering dose fashion as directed. Use a walker for ambulation until no longer needed. Pending Studies at Discharge: No Stand-Alone Forms: [facility], Smoking Cessation Medications and DC Order Prescriptions: New oxycodone-acetaminophen [Percocet] 5-325 mg Tablet 1 tab PO Q8H PRN (Reason: pain) Qty: 20 RF: 0 Continued amlodipine 5 mg tablet 5 mg PO QAM RF: 0 oxycodone-acetaminophen [Percocet] 5-325 mg tablet 1 tab PO Q8H PRN (Reason: pain) Qty: 90 RF: 0 buprenorphine [Butrans] 5 mcg/hour patch weekly 1 patch transdermal Q7D Qty: 1 RF: 0 duloxetine [Cymbalta] 60 mg capsule,delayed release(DR/EC) 60 mg PO BID Qty: 180 RF: 0 albuterol sulfate 90 mcg/actuation HFA aerosol inhaler 2 puffs INH Q4H PRN (Reason: shortness of breath or wheezing) RF: 0 albuterol sulfate 2.5 mg /3 mL (0.083 %) solution for nebulization 2.5 mg inhalation Q4H PRN (Reason: Shortness Of Breath) RF: 0 atorvastatin 40 mg tablet 40 mg PO QAM RF: 0 metformin 1,000 mg tablet 1,000 mg PO BID RF: 0 losartan-hydrochlorothiazide 100-25 mg tablet 1 tab PO QAM RF: 0 glipizide 2.5 mg tablet extended release 24hr 2.5 mg PO BID RF: 0 pantoprazole 40 mg tablet,delayed release (DR/EC) 40 mg PO QAM RF: 0 gabapentin 300 mg capsule 900 mg PO TID RF: 0 aspirin 81 mg Tablet,Delayed Release (Dr/Ec) 81 mg PO QAM RF: 0 pramipexole [Mirapex] 1 mg tablet 1 mg PO BID RF: 0 lidocaine 5 % adhesive patch,medicated 1 patch TOP DAILY PRN (Reason: pain) Qty: 15 RF: 0 nitrofurantoin monohyd/m-cryst [Macrobid] 100 mg Capsule 100 mg PO BID RF: 0 Discharge Orders: Discharge Order (Routine); Ordered 05/08/21 Ordered By: Jefe Nicholson/Other Patient Handouts: High Blood Sugar (Hyperglycemia), Hypoglycemia (Low Blood Sugar), Managing Type 2 Diabetes Admission Data Admit Date/Time: 05/06/21 23:40 Attending Provider: Jefe Christianson Admit Provider: Nick Acevedo Primary Care Provider: Elda Ng Other Providers: Amber Garcia ; Bony Jones Coding Level of Care Code D/C DAY MANAGEMENT >30 MINS Diagnoses Lower extremity pain, left M79.605
== END 2021-05-08 14:04 | disposition home or self-care (01) ==
LOC: ED 15:23 → EDINP 15:23 → SUATTDRO 23:40 → 3E 05-07 04:11

== ENCOUNTER 2021-10-24 22:21 | Inpatient (IN) ==
[2021-10-24] MEDS ORDERED: SODIUM CHLORIDE 0.9% 1000ML 1,000 ML IV ONE ×2 (22:37→23:55)
--- NOTE | 2021-10-24 22:42 | Emergency Department Note ---
Impression & Plan Acute hypotension, Acute dehydration, Hypomagnesemia, Diarrhea ED Provider Note NAME: BRISEYDA PORTILLO AGE: 71 SEX: F : 1950 ARRIVES VIA: Walk-In INFORMANT: Patient, ED PROVIDER(S): Rolando Candelaria DO CHIEF COMPLAINT: Back pain HPI: Patient is a 71-year-old female who presented to the emergency department through triage for an evaluation of back pain. The patient states that she has a history of chronic back pain. She has been noticing lately that her pain is worsened. She has been using her outpatient medication with only minimal relief. She also notices right shoulder pain. She is also had diarrhea. Diarrhea is not new its been going on for a few weeks. She is not been seen by her family doctor for the symptoms. She denies having any chest pain. She denies having any difficulty breathing. She denies having any vomiting but has noted some nausea. She has had no black or bloody bowel moods. She states her symptoms are moderate to severe and she is noticed weakness especially with trying to use her walker. ROS: See above HPI for pertinent positives & negatives. A total of 10 systems reviewed and were otherwise negative. PAST MEDICAL HISTORY: See Below PAST SURGICAL HISTORY: See Below FAMILY HISTORY: See Below SOCIAL HISTORY: See Below HOME MEDICATIONS: See Below ALLERGIES: See Below VITALS: See Below PHYSICAL EXAMINATION: GENERAL: The patient is awake alert. She is somewhat anxious appearing. EYES: The conjunctivae are clear. The pupils are round and reactive. EARS, NOSE, MOUTH AND THROAT: The nose is without any evidence of any deformity. NECK: The neck is nontender and supple. RESPIRATORY: Normal respiratory effort is noted there is no evidence of wheezing rhonchi or rales CARDIOVASCULAR: Regular rate and rhythm noted there no murmurs rubs or gallops normal S1 normal S2. GASTROINTESTINAL: The abdomen is soft and nontender. There is no specific g uarding or rigidity. BACK: Kyphoscoliosis was noted. There was palpable tenderness over the lower l umbar spine. Range of motion appears intact. MUSCULOSKELETAL/EXTREMITIES: There is no evidence of gross deformity full range of motion is noted in the hips and shoulders. SKIN: There is no obvious evidence of any rash. Trace pedal edema was noted bilaterally. Pulses were symmetric in both feet. NEUROLOGIC: Patient is awake alert and oriented x3. The patient is able to hold each leg off the bed for greater than 5 seconds. MEDICAL DECISION MAKING: The patient is a 71-year-old female who presented to the emergency department for an evaluation of weakness. The patient has been having an exacerbation of her chronic back pain. She describes lower back pain but also now has been having upper back pain and shoulder pain. The patient did not have any focal neurologic deficits. She was found to be hypotensive. I discussed the patient's laboratory and radiographic studies with her. She was treated with multiple saline boluses in the emergency department. Her blood pressure improved somewhat. She was found to have an elevated lactate. She was treated with empiric antibiotics. [facility] They have agreed to evaluate the patient in the emergency department for further management and disposition. Triage Nursing notes reviewed. Prior medical records reviewed Vital Signs: reviewed and remarkable for hypotension. Differential diagnosis: Musculoskeletal, disc herniation, fracture, metastatic disease, cord compression, discitis, sciatica, cauda equina, infection, aortic disease, renal colic, gastrointestinal, as well as other pathologies. ER treatment provided: See below Diagnostics interpreted by me: ECG: EKG was obtained in the emergency department. My interpretation is normal sinus rhythm at 79 bpm. There is no ectopy. There is no acute ST segment abnormalities noted. Right bundle block pattern was present. This was compared to a tracing from January 13, 2021. The QRS is now prolonged compared to the earlier tracing. Cardiac Monitoring: An order was placed for continuous cardiac monitoring. The monitor shows a rate of 68 bpm with sinus rhythm. Laboratory studies: As stated above and show below. Imaging studies: See below [facility] will evaluate the patient in the emergency department. Past Med/Surg History Medical History Anemia Chronic SI joint pain Degenerative disc disease Diabetes mellitus, type 2 Diabetic peripheral neuropathy associated with type 2 diabetes mellitus Fatty liver GERD (gastroesophageal reflux disease) History of COVID-19 04/2020 (HOSPITALIZED IN [facility]) History of DVT (deep vein thrombosis) >35 YEARS AGO. PT HIT WITH A BOARD/BAT TO THE LEG AND DEVELOPED CLOT. NO ISSUES SINCE. History of kidney stones Hx of fall 04/2020>FELL AND HOSPITALIZED FOR COVID/HYPOXIA AND "BROKE MY BACK>SENT TO [facility]. WAS IN A DRUG INDUCED COMA FOR WEEKS/HAD BACK SURGERY". Hx of gout Hyperlipidemia Hypertension Intractable low back pain Intractable neuropathic pain of lower extremity Lumbar spinal stenosis Lumbar spondylosis Neurogenic claudication due to lumbar spinal stenosis Restless leg syndrome Right shoulder pain Shoulder pain, right Sleep apnea NO DEVICE USED Surgical History H/O varicose vein ligation and stripping Saphenous vein History of appendectomy 10/19/12 - laparoscopic by Dr Herrera History of back surgery 4 TOTAL BACK SURGERIES (PT UNSURE OF DETAILS) History of section X 3 History of colonoscopy 10/2004 - Dr Carrion. Neg. Repeat in 5 years. History of colonoscopy History of esophagogastroduodenoscopy (EGD) History of herniorrhaphy 02/21/15 - Repair of incarcerated incisional hernia with Surgimesh 10cm in diameter resection of incarcerated omentum by Dr Knutson History of open reduction and internal fixation (ORIF) procedure RT ANKLE History of tooth extraction Family History Mother Osteoporosis Heart disease Cancer Hypertension Brother Diabetes Family history of diabetes mellitus Daughter Cervical cancer Father Parkinsons Other No family history of adverse response to anesthesia Denies family history of Ovarian cancer Breast cancer Colorectal cancer Stroke Asthma Social History Smoking Status: Never smoker Second Hand Exposure: No; Hx Alcohol Use: No Hx Substance Use: No Preferred Language: Armenian Communication Ability: Effective Visual Impairment: No Limitations Hearing Ability: Normal Wireless Technician Required: No Beliefs That Will Affect Care: None marital status: Current Living Situation: Spouse current occupational status: retired current occupation: Retired Feels Safe at Home: Yes Dental Care, Regularly: Yes Physical Activity Frequency: Does not Exercise Assistive Devices: Walker Allergies Allergies Allergy/AdvReac Type Severity Reaction Status Date / Time cefuroxime AdvReac Intermediate upset Verified 10/24/21 23:14 stomach Home Meds Home Medications Medication Instructions Recorded Confirmed amlodipine 5 mg tablet 5 mg PO QAM 02/09/18 10/24/21 albuterol sulfate 2.5 mg INHALATION Q4H PRN 08/08/19 10/24/21 albuterol sulfate 90 mcg/actuation 2 puffs INH Q4H PRN gm 08/08/19 10/24/21 aerosol inhaler atorvastatin 40 mg tablet 40 mg PO QAM 06/05/20 10/24/21 glipizide 2.5 mg tablet, extended 2.5 mg PO BID 06/05/20 10/24/21 release 24 hr losartan 100 1 tab PO QAM 06/05/20 10/24/21 mg-hydrochlorothiazide 25 mg tablet metformin 1,000 mg tablet 1,000 mg PO BID 06/05/20 10/24/21 pantoprazole 40 mg tablet,delayed 40 mg PO QAM 06/05/20 10/24/21 release gabapentin 300 mg capsule 900 mg PO TID cap 08/07/20 10/24/21 aspirin 81 mg tablet,delayed 81 mg PO QAM 11/15/20 10/24/21 release pramipexole 1 mg tablet (Mirapex) 1 mg PO BID 11/15/20 10/24/21 Previous Rx's Medication Instructions Recorded duloxetine 60 mg capsule,delayed 60 mg PO BID #180 cap 01/04/21 release (Cymbalta) oxycodone-acetaminophen 5 mg-325 1 tab PO Q8H PRN #90 tab 09/26/21 mg tablet (Percocet) naloxone 4 mg/actuation nasal 4 mg INTRANASAL Q3M PRN #1 ea 10/09/21 spray (Narcan) oxycodone myristate 9 mg capsule 9 mg PO Q12H #30 ea 10/11/21 sprinkle extended release 12 hr(DON'T CRUSH) (Xtampza ER) Results & Data (ED) Vital Signs Vital Signs - 24 hr 10/24/21 22:23 10/24/21 22:49 10/24/21 22:52 Temperature 36.4 C L Temperature Source Temporal Artery Scan Pulse Rate 88 Pulse Rate [Apical] 76 Pulse Rate from SpO2 Sensor Respiratory Rate 18 18 Respiratory Effort / Characteristics Non-Labored Spontaneous Blood Pressure 66/45 L Blood Pressure [Right Arm] 89/55 L Blood Pressure Mean 52 Blood Pressure Mean [Right Arm] 66 Pulse Oximetry 95 92 90 Oxygen Delivery Method Room Air Room Air Oxygen Flow Rate Sepsis Recent Fever Within 48 Hours No Sepsis New/Unexplained Change in Mental Status No Sepsis Action Taken by Nursing No Action Required 10/24/21 23:09 10/24/21 23:30 10/24/21 23:37 Temperature Temperature Source Pulse Rate 72 70 Pulse Rate [Apical] Pulse Rate from SpO2 Sensor 72 70 Respiratory Rate 15 15 Respiratory Effort / Characteristics Non-Labored Spontaneous Blood Pressure 81/51 L 92/55 L Blood Pressure [Right Arm] Blood Pressure Mean 61 67 Blood Pressure Mean [Right Arm] Pulse Oximetry 91 94 Oxygen Delivery Method Room Air Room Air Oxygen Flow Rate Sepsis Recent Fever Within 48 Hours Sepsis New/Unexplained Change in Mental Status Sepsis Action Taken by Nursing 10/24/21 23:55 10/25/21 00:00 Temperature Temperature Source Pulse Rate 68 Pulse Rate [Apical] Pulse Rate from SpO2 Sensor 69 Respiratory Rate 17 Respiratory Effort / Characteristics Blood Pressure 93/53 L Blood Pressure [Right Arm] Blood Pressure Mean 66 Blood Pressure Mean [Right Arm] Pulse Oximetry 88 L 94 Oxygen Delivery Method Room Air Nasal Cannula Oxygen Flow Rate 2 Sepsis Recent Fever Within 48 Hours Sepsis New/Unexplained Change in Mental Status Sepsis Action Taken by Prison Medications Current Medication List: was personally reviewed by me Laboratory Data Attestation: I reviewed the patient's lab results. Result diagrams: 10/24/21 22:45 10/24/21 22:45 Lab Results 10/24/21 10/24/21 10/24/21 Range/Units 22:45 22:45 22:45 WBC 6.53 (4.8-10.8) K/uL RBC 3.97 L (4.2-5.4) M/uL Hgb 12.1 (12.0-16.0) g/dL Hct 36.4 L (37-47) % MCV 91.7 (80-100) fL MCH 30.5 (25-34) pg MCHC 33.2 (32-36) g/dL RDW Std Deviation 47.6 H (36.4-46.3) fL RDW Coeff of Manas 14.1 (11.5-14.5) % Plt Count 218 (130-400) K/uL MPV 9.8 (7.4-10.4) fL Immature Gran % (Auto) 0.3 % Neut % (Auto) 53.5 % Lymph % (Auto) 31.1 % [place] % (Auto) 13.3 % Eos % (Auto) 1.5 % Baso % (Auto) 0.3 % Neut # (Auto) 3.49 (1.4-6.5) K/uL Lymph # (Auto) 2.03 (1.2-3.4) K/uL [place] # (Auto) 0.87 H (0.11-0.59) K/uL Eos # (Auto) 0.10 (0-0.5) K/uL Baso # (Auto) 0.02 (0-0.2) K/uL Immature Gran # (Auto) 0.02 (0.00-0.02) K/uL ESR 74 H (0-30) mm/hr PT (9.0-12.0) Seconds INR (0.9-1.1) APTT (21.0-31.0) Seconds PTT Ratio Sodium (136-145) mmol/L Potassium (3.5-5.1) mmol/L Chloride (98-107) mmol/L Carbon Dioxide (21-32) mmol/L Anion Gap (3-11) BUN (6-23) mg/dl Creatinine (0.6-1.2) mg/dl Est Cr Clr Drug Dosing ml/min Est GFR ( Amer) ml/min Est GFR (Non-Af Amer) ml/min BUN/Creatinine Ratio (10-20) Glucose (70-99(Fasting)) mg/dl Lactate (0.4-2.0) mmol/L Calcium (8.5-10.1) mg/dl Magnesium (1.7-2.4) mg/dl Total Bilirubin (0.2-1.0) mg/dl AST (13-39) U/L ALT (7-52) U/L Alkaline Phosphatase (34-104) U/L Troponin I High Sens 7.5 (0-14) pg/ml C-Reactive Protein (0-0.5) mg/dl Total Protein (6.0-8.3) gm/dl Albumin (3.4-5.0) gm/dl Globulin (2.5-4.0) gm/dl Albumin/Globulin Ratio (0.9-2) Procalcitonin (0-0.5) ng/ml 10/24/21 10/24/21 10/24/21 Range/Units 22:45 22:45 22:45 WBC (4.8-10.8) K/uL RBC (4.2-5.4) M/uL Hgb (12.0-16.0) g/dL Hct (37-47) % MCV (80-100) fL MCH (25-34) pg MCHC (32-36) g/dL RDW Std Deviation (36.4-46.3) fL RDW Coeff of Manas (11.5-14.5) % Plt Count (130-400) K/uL MPV (7.4-10.4) fL Immature Gran % (Auto) % Neut % (Auto) % Lymph % (Auto) % [place] % (Auto) % Eos % (Auto) % Baso % (Auto) % Neut # (Auto) (1.4-6.5) K/uL Lymph # (Auto) (1.2-3.4) K/uL [place] # (Auto) (0.11-0.59) K/uL Eos # (Auto) (0-0.5) K/uL Baso # (Auto) (0-0.2) K/uL Immature Gran # (Auto) (0.00-0.02) K/uL ESR (0-30) mm/hr PT 11.4 (9.0-12.0) Seconds INR 1.1 (0.9-1.1) APTT 29.0 (21.0-31.0) Seconds PTT Ratio 1.1 Sodium 135 L (136-145) mmol/L Potassium 3.4 L (3.5-5.1) mmol/L Chloride 94 L (98-107) mmol/L Carbon Dioxide 27 (21-32) mmol/L Anion Gap 14 H (3-11) BUN 14 (6-23) mg/dl Creatinine 1.40 H (0.6-1.2) mg/dl Est Cr Clr Drug Dosing 39.0 ml/min Est GFR ( Amer) 44.3 ml/min Est GFR (Non-Af Amer) 38.2 ml/min BUN/Creatinine Ratio 10.0 (10-20) Glucose 118 H (70-99(Fasting)) mg/dl Lactate 3.2 H* (0.4-2.0) mmol/L Calcium 8.9 (8.5-10.1) mg/dl Magnesium 1.5 L (1.7-2.4) mg/dl Total Bilirubin 0.5 (0.2-1.0) mg/dl AST 25 (13-39) U/L ALT 23 (7-52) U/L Alkaline Phosphatase 69 (34-104) U/L Troponin I High Sens (0-14) pg/ml C-Reactive Protein 16.41 H (0-0.5) mg/dl Total Protein 6.8 (6.0-8.3) gm/dl Albumin 3.4 (3.4-5.0) gm/dl Globulin 3.4 (2.5-4.0) gm/dl Albumin/Globulin Ratio 1.0 (0.9-2) Procalcitonin (0-0.5) ng/ml 10/24/21 Range/Units 22:45 WBC (4.8-10.8) K/uL RBC (4.2-5.4) M/uL Hgb (12.0-16.0) g/dL Hct (37-47) % MCV (80-100) fL MCH (25-34) pg MCHC (32-36) g/dL RDW Std Deviation (36.4-46.3) fL RDW Coeff of Manas (11.5-14.5) % Plt Count (130-400) K/uL MPV (7.4-10.4) fL Immature Gran % (Auto) % Neut % (Auto) % Lymph % (Auto) % [place] % (Auto) % Eos % (Auto) % Baso % (Auto) % Neut # (Auto) (1.4-6.5) K/uL Lymph # (Auto) (1.2-3.4) K/uL [place] # (Auto) (0.11-0.59) K/uL Eos # (Auto) (0-0.5) K/uL Baso # (Auto) (0-0.2) K/uL Immature Gran # (Auto) (0.00-0.02) K/uL ESR (0-30) mm/hr PT (9.0-12.0) Seconds INR (0.9-1.1) APTT (21.0-31.0) Seconds PTT Ratio Sodium (136-145) mmol/L Potassium (3.5-5.1) mmol/L Chloride (98-107) mmol/L Carbon Dioxide (21-32) mmol/L Anion Gap (3-11) BUN (6-23) mg/dl Creatinine (0.6-1.2) mg/dl Est Cr Clr Drug Dosing ml/min Est GFR ( Amer) ml/min Est GFR (Non-Af Amer) ml/min BUN/Creatinine Ratio (10-20) Glucose (70-99(Fasting)) mg/dl Lactate (0.4-2.0) mmol/L Calcium (8.5-10.1) mg/dl Magnesium (1.7-2.4) mg/dl Total Bilirubin (0.2-1.0) mg/dl AST (13-39) U/L ALT (7-52) U/L Alkaline Phosphatase (34-104) U/L Troponin I High Sens (0-14) pg/ml C-Reactive Protein (0-0.5) mg/dl Total Protein (6.0-8.3) gm/dl Albumin (3.4-5.0) gm/dl Globulin (2.5-4.0) gm/dl Albumin/Globulin Ratio (0.9-2) Procalcitonin 0.13 (0-0.5) ng/ml Administered Medications Sodium Chloride (Nss 1000ml) 1,000 mls @ 999 mls/hr IV .Q1H1M ONE Stop: 10/25/21 00:55 Last Admin: 10/25/21 00:03 Dose: 999 mls/hr Documented by: [id number] Discontinued Medications Sodium Chloride (Nss 1000ml) 1,000 mls @ 999 mls/hr IV .Q1H1M ONE Stop: 10/24/21 23:37 Last Infusion: 10/25/21 00:11 Dose: 0 mls/hr Documented by: [id number] Admin: 10/24/21 22:49 Dose: 999 mls/hr Documented by: [id number] Piperacillin Sod/Tazobactam Sod (Zosyn) 4.5 gm in 120 mls @ 240 mls/hr IV NOW ONE Stop: 10/25/21 00:28 Last Admin: 10/25/21 00:05 Dose: 240 mls/hr Documented by: [id number] Imaging Data Attestation: I personally reviewed and interpreted this imaging study as follows: My Impression: 1 view chest x-ray was obtained in the emergency department. My interpretation is cardiomegaly. There was atelectasis at the right base. Poor in story effort was noted. Previous surgical changes were also noted. Radiologist's Impression: Patient: BRISEYDA PORTILLO (Female) : 54 Status: ER Date: 10/24/21 23:10 Room #: History: back pain Slices: [phone] Priors: Tech: Víctor Millan @ [phone] Exams: CT ABDOMEN & PELVIS Without Contrast Contrast: Accession Numbers: [id number] Referring Physician: ROLANDO CANDELARIA Preliminary Findings Only See Final Report For Complete Findings CT ABDOMEN & PELVIS Without Contrast: Comparison: 01/13/2021.. Normal cardiac size with coronary artery calcifications. Bilateral lower lobe atelectasis, left more than right. Unremarkable liver, gallbladder and biliary system. Normal spleen, pancreas, bilateral adrenal and bilateral kidneys. Unremarkable stomach with no hiatal hernia. Nonspecific small bowel. Increased fecal debris within the colon suggestive of constipation. Diverticulosis with no signs of diverticulitis. Nonvisualized appendix with clips by the cecum s uggestive of previous appendectomy. Atherosclerotic disease of aorta with no aneurysm. Anteverted uterus with atrophy and vascular calcification. Normal urinary bladder. No free fluid. Extensive postoperative changes throughout thoracic and lumbar spine with diffuse multifocal posterior fusion. Radiologist: Mary Mccollum MD Study ready at 23:16 and initial results transmitted at 23:32 Discharge Plan Visit Data Chief Complaint: Back Injury/Pain Stated Complaint: MAJOR BACK PAIN ED Provider: Rolando Candelaria Discharge Problem: Acute hypotension, Acute dehydration, Hypomagnesemia, Diarrhea Patient Disposition: Being Evaluated by Hospitalist Forms Stand Alone Forms: My [facility] [place] [employer] Prescriptions Prescriptions: No Action amlodipine 5 mg tablet 5 mg PO QAM RF: 0 naloxone [Narcan] 4 mg/actuation spray,non-aerosol 4 mg intranasal Q3M PRN (Reason: opioid overdose) Qty: 1 RF: 0 duloxetine [Cymbalta] 60 mg capsule,delayed release(DR/EC) 60 mg PO BID Qty: 180 RF: 0 oxycodone-acetaminophen [Percocet] 5-325 mg tablet 1 tab PO Q8H PRN (Reason: pain) Qty: 90 RF: 0 Xtampza ER 9 mg cap,sprinkl,ER12hr(DONT CRUSH) 9 mg PO Q12H Qty: 30 RF: 0 albuterol sulfate 90 mcg/actuation HFA aerosol inhaler 2 puffs INH Q4H PRN (Reason: shortness of breath or wheezing) RF: 0 albuterol sulfate 2.5 mg /3 mL (0.083 %) solution for nebulization 2.5 mg inhalation Q4H PRN (Reason: Shortness Of Breath) RF: 0 atorvastatin 40 mg tablet 40 mg PO QAM RF: 0 metformin 1,000 mg tablet 1,000 mg PO BID RF: 0 losartan-hydrochlorothiazide 100-25 mg tablet 1 tab PO QAM RF: 0 glipizide 2.5 mg tablet extended release 24hr 2.5 mg PO BID RF: 0 pantoprazole 40 mg tablet,delayed release (DR/EC) 40 mg PO QAM RF: 0 gabapentin 300 mg capsule 900 mg PO TID RF: 0 aspirin 81 mg Tablet,Delayed Release (Dr/Ec) 81 mg PO QAM RF: 0 pramipexole [Mirapex] 1 mg tablet 1 mg PO BID RF: 0 Referrals Referrals: Elda Ng CRNP [Primary Care Provider] -
[2021-10-24 23:08] LABS: Basophils # (auto) 0.02 K/uL (0-0.2); Basophils % (auto) 0.3 %; Eosinophils % (auto) 1.5 %; Hematocrit (blood only) 36.4 % (37-47); Hemoglobin 12.1 g/dL (12.0-16.0); Immature Granulocytes # (auto) 0.02 K/uL (0.00-0.02); Immature Granulocytes % (auto) 0.3 %; Lymphocytes # (auto) 2.03 K/uL (1.2-3.4); Lymphocytes % (auto) 31.1 %; Mean Corpuscular Hemoglobin 30.5 pg (25-34); Mean Corpuscular Hgb Conc 33.2 g/dL (32-36); Mean Corpuscular Volume 91.7 fL (80-100); Mean Platelet Volume 9.8 fL (7.4-10.4); Monocytes # (auto) 0.87 K/uL (0.11-0.59); Monocytes % (auto) 13.3 %; Neutrophils # (auto) 3.49 K/uL (1.4-6.5); Neutrophils % (auto) 53.5 %; Platelet Count 218 K/uL (130-400); RDW Coefficient of Variation 14.1 % (11.5-14.5); RDW Standard Deviation 47.6 fL (36.4-46.3); Red Blood Count 3.97 M/uL (4.2-5.4); White Blood Count 6.53 K/uL (4.8-10.8)
[2021-10-24 23:36] LABS: INR 1.1 (0.9-1.1); Partial Thromboplastin Ratio 1.1; Prothrombin Time 11.4 Seconds (9.0-12.0)
[2021-10-24 23:44] LABS: Albumin Level 3.4 gm/dl (3.4-5.0); Bilirubin,Total 0.5 mg/dl (0.2-1.0); C Reactive Protein 16.41 mg/dl (0-0.5); Calcium 8.9 mg/dl (8.5-10.1); Est GFR (African American) 44.3 ml/min; Est GFR (Non-African American) 38.2 ml/min; Globulin 3.4 gm/dl (2.5-4.0); Magnesium 1.5 mg/dl (1.7-2.4); Potassium 3.4 mmol/L (3.5-5.1); Total Protein 6.8 gm/dl (6.0-8.3)
[2021-10-24] MEDS ORDERED: PIPERACILLIN/TAZOBACTAM 4.5 GM/120 ML BAG IV ONE (23:59)
[2021-10-24] MEDS ORDERED: PIPERACILL/TAZOBAC CONSULT ACTIVE PRN (23:59)
--- NOTE | 2021-10-25 00:30 | History & Physical Report ---
Date of Service October 25, 2021 Assessment & Plan (1) Acute hypotension: Plan: Rosa Elizabeth is a 71yo female with PMHx significant for T2DM (A1c 7.6 in 05/2021), chronic low back pain with known lumbar spinal stenosis, ambulatory dysfunction with frequent falls, RLS, obesity, HTN, HLD, HERIBERTO (no CPAP), GERD and depression who presented to [facility] ED on 10/25/2021 due to progressively worsening chronic low back pain for several days as well as diarrhea for several weeks. Acute Hypotension, improving; TEA Suspect that subacute diarrhea in addition to generalized illness over last several days, with minimal PO intake, led to profound hypotension in the ED as well as elevated lactate and Cr 1.40. Procal is negative although CRP 16.41/ESR 74 - suspect gastroenteritis although possibility of bacteremia and/or other bacterial infection is low at this point in time. - SIRS 0 and qSOFA 1 - no sepsis - Lactate 3.2 --> 2.0 after 2L NSS - continue with LR @150cc/hr - s/p Zosyn x1 in ED - will continue empiric coverage with Zosyn for now, given profound hypotension and lactic acidosis - trend blood cx - trend CBC/BMP in AM Diarrhea Symptoms x1 month, preceded by constipation. Suspect overflow diarrhea 2/2 to constipation, although there may also be component of gastroenteritis as stated above. - CT A/P with evidence of constipation but without evidence for enterocolitis - mIVFs as stated above - ordered stool PCR panel - pending - start scheduled Miralax 1 packet TID for constipation Hypoxia Desatted to 88% on RA in the ED and quickly improved to 94-99% on 2L NC. CXR is clear overall and there is very low suspicion for acute pulmonary pathology. Suspect this is due to OHS in this severely obese patient. - NC as needed to maintain SpO2 >90% - wean as tolerated Acute on Chronic Low Back Pain Suspect acute exacerbation is due to constipation. - continue home pain regimen with Percocet 5-325mg PO Q8H and Oxycodone myristate 9mg PO Q12H - continue home Gabapentin Hypomagnesemia Mg 1.5, likely due to diarrhea. - repleted in ED Chronic Medical Problems HTN: hold home Amlodipine and Losartan-HCTZ due to hypotension T2DM: A1c 7.6 in 05/2021. Will repeat A1c in AM. Hold home meds, SSI while hospitalized. HLD: continue home Aspirin and Atorvastatin Depression: continue home Cymbalta RLS: continue home Pramipexole GERD: continue home Protonix FEN/GI: DM2 diet; LR @150cc/hr DVT Prophylaxis: Heparin 7500units SQ Q8H Code Status: full code Disposition: PCU (2) Acute dehydration: (3) Diarrhea: (4) Hypomagnesemia: (5) Lactic acidosis: (6) Constipation: (7) Hypoxia: (8) Diabetes: (9) Low back pain: (10) Neurogenic claudication due to lumbar spinal stenosis: (11) Major depressive disorder: (12) Restless leg syndrome: (13) TEA (acute kidney injury): (14) Morbid obesity with BMI of 40.0-44.9, adult: (15) Sleep apnea: (16) Hyperlipidemia: (17) Hypertension: History of Present Illness Chief Complaint: back pain Primary Care Provider: SUMMER Mrury Rosa Elizabeth is a 71yo female with PMHx significant for T2DM (A1c 7.6 in 05/2021), chronic low back pain with known lumbar spinal stenosis, ambulatory dysfunction with frequent falls, RLS, obesity, HTN, HLD, HERIBERTO (no CPAP), GERD and depression who presented to [facility] ED on 10/25/2021 due to progressively worsening chronic low back pain for several days as well as diarrhea for several weeks. Patient has intractable chronic low back pain, but reports that over last several days her pain med regimen has not helped at all. Also reports that she has felt general weakness and decreased appetite over last several days and has had [id number] PO intake. Until 1 month ago she had very constipated stools ~1x per week, but started to have small, watery bouts of diarrhea many times throughout the day over the last month. Has often been incontinent of stool due to this. Denies blood or mucus in stool. Patient does report being treated for pneumonia as outpatient ~1 month ago but denies any more recent illnesses. Denies fever/chills, chest pain, SOB, N/V, abdominal pain, urinary symptoms or rash. In the ED the patient was initially hypotensive to 80s/50s which slightly improved to 90s/50s after 1L NSS bolus. Also was hypoxic to 88% and improved to 94% on 2L NC. No tachycardia or fever. Labs significant for CRP 16.41/ESR 74 (but no leukocytosis), Procal 0.13. Na 135, K 3.4, Cl 94, Mg 1.5. Cr 1.4 with BUN:Cr ratio of 10:1. Lactate 3.2. COVID- 19 negative. CXR without overt cardiopulmonary process. CT A/P with increased colonic fecal debris suggestive of constipation, without evidence for enterocolitis. Patient was given 1L NSS bolus as stated above, and 2nd 1L bag is running currently. Was also given Mg 2g IV. Was also given Zosyn x1 and blood cultures drawn (cx drawn before abx started). Allergies Allergy/AdvReac Type Severity Reaction Status Date / Time cefuroxime AdvReac Intermediate upset Verified 10/24/21 23:14 stomach Home Medications Medication Instructions Recorded Confirmed Type amlodipine 5 mg tablet 5 mg PO QAM 02/09/18 10/24/21 History albuterol sulfate 2.5 mg INHALATION Q4H PRN 08/08/19 10/24/21 History albuterol sulfate 90 mcg/actuation 2 puffs INH Q4H PRN gm 08/08/19 10/24/21 History aerosol inhaler atorvastatin 40 mg tablet 40 mg PO QAM 06/05/20 10/24/21 History glipizide 2.5 mg tablet, extended 2.5 mg PO BID 06/05/20 10/24/21 History release 24 hr losartan 100 1 tab PO QAM 06/05/20 10/24/21 History mg-hydrochlorothiazide 25 mg tablet metformin 1,000 mg tablet 1,000 mg PO BID 06/05/20 10/24/21 History pantoprazole 40 mg tablet,delayed 40 mg PO QAM 06/05/20 10/24/21 History release gabapentin 300 mg capsule 900 mg PO TID cap 08/07/20 10/24/21 History aspirin 81 mg tablet,delayed 81 mg PO QAM 11/15/20 10/24/21 History release pramipexole 1 mg tablet (Mirapex) 1 mg PO BID 11/15/20 10/24/21 History duloxetine 60 mg capsule,delayed 60 mg PO BID #180 cap 01/04/21 10/24/21 Rx release (Cymbalta) oxycodone-acetaminophen 5 mg-325 1 tab PO Q8H PRN #90 tab 09/26/21 10/24/21 Rx mg tablet (Percocet) naloxone 4 mg/actuation nasal 4 mg INTRANASAL Q3M PRN #1 ea 10/09/21 10/24/21 Rx spray (Narcan) oxycodone myristate 9 mg capsule 9 mg PO Q12H #30 ea 10/11/21 10/24/21 Rx sprinkle extended release 12 hr(DON'T CRUSH) (Xtampza ER) Past Med/Surg History Medical History Anemia Chronic SI joint pain Degenerative disc disease Diabetes mellitus, type 2 Diabetic peripheral neuropathy associated with type 2 diabetes mellitus Fatty liver GERD (gastroesophageal reflux disease) History of COVID-19 04/2020 (HOSPITALIZED IN [facility], [place], [facility] BY [facility]) History of DVT (deep vein thrombosis) >35 YEARS AGO. PT HIT WITH A BOARD/BAT TO THE LEG AND DEVELOPED CLOT. NO ISSUES SINCE. History of kidney stones Hx of fall 04/2020>FELL AND HOSPITALIZED FOR COVID/HYPOXIA AND "BROKE MY BACK>SENT TO [facility]. WAS IN A DRUG INDUCED COMA FOR WEEKS/HAD BACK SURGERY". Hx of gout Hyperlipidemia Hypertension Intractable low back pain Intractable neuropathic pain of lower extremity Lumbar spinal stenosis Lumbar spondylosis Neurogenic claudication due to lumbar spinal stenosis Restless leg syndrome Right shoulder pain Shoulder pain, right Sleep apnea NO DEVICE USED Surgical History H/O varicose vein ligation and stripping Saphenous vein History of appendectomy 10/19/12 - laparoscopic by Dr Herrera History of back surgery 4 TOTAL BACK SURGERIES (PT UNSURE OF DETAILS) History of section X 3 History of colonoscopy 10/2004 - Dr Carrion. Neg. Repeat in 5 years. History of colonoscopy History of esophagogastroduodenoscopy (EGD) History of herniorrhaphy 02/21/15 - Repair of incarcerated incisional hernia with Surgimesh 10cm in diameter resection of incarcerated omentum by Dr Knutson History of open reduction and internal fixation (ORIF) procedure RT ANKLE History of tooth extraction Family History Mother Osteoporosis Heart disease Cancer Hypertension Brother Diabetes Family history of diabetes mellitus Daughter Cervical cancer Father Parkinsons Other No family history of adverse response to anesthesia Denies family history of Ovarian cancer Breast cancer Colorectal cancer Stroke Asthma Social History Smoking Status: Never smoker Second Hand Exposure: No; Do You Dip or Chew Tobacco: No; Hx Alcohol Use: No Hx Substance Use: No Preferred Language: Malian Communication Ability: Effective Visual Impairment: No Limitations Hearing Ability: Normal Family Manager Required: No Beliefs That Will Affect Care: None marital status: Current Living Situation: Spouse current occupational status: retired current occupation: Retired Feels Safe at Home: Yes Safety Concerns: Feels Safe At This Time Dental Care, Regularly: Yes Physical Activity Frequency: Does not Exercise Assistive Devices: Cane, Denture - Upper, Denture - Lower, Glasses and Walker Review of Systems Review of Systems: All systems reviewed & are unremarkable except as noted in HPI & below Physical Exam Physical Exam: General: A&Ox3. NAD. Cooperative. Obese. HEENT: Atraumatic, normocephalic. Pulm: CTAB A&P. -wheezes, -rales, -rhonchi. Symmetrical chest rise. No increase work of breathing. No respiratory distress. Cardiac: RRR, -mrg. Radial pulses intact and symmetrical. No LE edema. Abdominal: soft, non-tender, non-distended, BS x 4 Skin: warm, dry, no rash Results & Data Results & Data ([facility]) Vital Signs (Past 12 Hours) Vital Signs Temp Pulse Pulse Resp BP BP Pulse Ox 10/25/21 00:00 68 17 93/53 L 94 10/24/21 23:55 88 L 10/24/21 23:30 70 15 92/55 L 94 10/24/21 23:09 72 15 81/51 L 91 10/24/21 22:52 90 10/24/21 22:49 76 18 89/55 L 92 10/24/21 22:23 36.4 C L 88 18 66/45 L 95 Code Status & VTE Plan Code Status full code - discussed with patient Supervising Physician Co-Signing Physician Notes Attending addendum: I have physically seen this patient, have supervised the medical residents activities, and agree with the H&P unless as otherwise noted. Assessment and Plan: Hypotension/dehydration secondary to diarrhea- Responding to IV fluids in ED Continue LR at 150 mils per hour Zosyn 4.5 g IV every 8 hours Follow all cultures: Serial laboratories Diarrhea- Follow stool PCR results Hypomagnesemia- Magnesium 1.5 upon admission Replace IV and repeat labs in a.m. Diabetes mellitus- Holding home medications Placed on Accu-Cheks before meals and at bedtime with NovoLog coverage per scale Remaining orders and notations as noted Resident Activity Tracking Resident Involvement: Resident Care Provided Care Provided: [facility] (1) Major depressive disorder Active/Remission status: remission status unspecified Major depression recurrence: recurrent Qualified Code(s): F33.9 - Major depressive disorder, recurrent, unspecified (2) Sleep apnea Sleep apnea type: obstructive Qualified Code(s): G47.33 - Obstructive sleep apnea (adult) (pediatric) (3) Diabetes Diabetes mellitus complication status: without complication Diabetes mellitus intermodal dispatcher insulin use: without intermodal dispatcher use Diabetes mellitus type: type 2 Qualified Code(s): E11.9 - Type 2 diabetes mellitus without complications (4) Diarrhea Diarrhea type: unspecified type Qualified Code(s): R19.7 - Diarrhea, unspecified (5) Hyperlipidemia Hyperlipidemia type: unspecified Qualified Code(s): E78.5 - Hyperlipidemia, unspecified (6) Hypertension Hypertension type: essential hypertension Qualified Code(s): I10 - Essential (primary) hypertension
[2021-10-25] MEDS ORDERED: SODIUM CHLORIDE 0.9% 1000ML 1,000 ML IV ONE (00:36)
[2021-10-25] MEDS: MAGNESIUM SULFATE / D5W 1 GM/100 ML BAG IV SCH ×6 (00:58→20:01)
[2021-10-25] MEDS ORDERED: ACETAMINOPHEN 325 MG TAB PO PRN (01:24)
[2021-10-25] MEDS: LACTATED RINGER'S 1,000 ML IV SCH ×3 (01:57→20:37)
[2021-10-25 03:03] LABS: Appearance Urine Clear (Clear); Bilirubin Urine Negative (Negative); Blood Urine Negative (Negative); Color Urine Yellow; Glucose Urine UA Negative (Negative); Ketones Urine Negative (Negative); Leukocyte Esterase Urine Negative (Negative); Nitrite Urine Negative (Negative); Protein Urine Negative (Negative); Specific Gravity Urine 1.011 (1.000-1.030); Urobilinogen Urine Negative (Negative); pH Urine 5.5 (4.5-7.5)
[2021-10-25 03:24] LABS: Creatinine Urine Random 72.1 mg/dl
[2021-10-25] MEDS: POLYETHYLENE (MIRALAX) 17 GM PACK PO SCH ×4 (04:22→20:28)
[2021-10-25] MEDS ORDERED: GLUCOSE 40% GEL 15 GM TUBE PO PRN (05:41)
[2021-10-25] MEDS ORDERED: CARBOHYDRATES FOR HYPOGLYCEMIA PO PRN (05:41)
[2021-10-25] MEDS ORDERED: DEXTROSE 50% 50 ML SYRINGE IV PRN (05:41)
[2021-10-25] MEDS ORDERED: GLUCAGON FOR INJ 1 MG VIAL SQ PRN (05:41)
[2021-10-25] MEDS ORDERED: GLUCOSE 10 TABS/TUBE PO PRN (05:41)
[2021-10-25] MEDS ORDERED: HEPARIN SOD 5,000 UNIT/0.5 ML VIAL SQ SCH (06:00)
[2021-10-25] MEDS: PIPERACILLIN/TAZOBACTAM 4.5 GM in DEXTROSE 5% 100 ML IV SCH ×3 (06:29→22:13)
--- NOTE | 2021-10-25 07:04 | XRay Report ---
XR chest 1V portable CLINICAL HISTORY: Sepsis. COMPARISON STUDY: Chest radiograph February 16, 2021. FINDINGS: Thoracolumbar spine surgical hardware is partially imaged. There is no pneumothorax or pleu ral effusion. No evidence for pulmonary edema. Mild cardiomegaly. Mild left basilar opacity favors at electasis. No consolidation to suggest pneumonia. IMPRESSION: No acute cardiopulmonary findings. No significant change in appearance of the chest. ACT 112: Negative or not required by law. Electronically signed by: Nir Jerome M.D. 10/25/2021 7:03 AM
--- NOTE | 2021-10-25 07:23 | CT Scan Report ---
CT abd pelvis wo con CLINICAL HISTORY: back pain COMPARISON STUDY: No previous studies for comparison. CT DOSE: 1068.10 mGy.cm TECHNIQUE: Standard CT of the Abdomen and Pelvis was performed without IV contrast. The patient did not receive oral contrast. A dose lowering technique was utilized adhering to the principles of CHRISTINE Oconnor FINDINGS: Lung base: There is minimal right lower lobe and left lower lobe atelectasis. On the initial image, t here is also suspicion of a 11 mm lingular nodule. Follow-up CT of the entire chest with contrast is recommended for further evaluation. The heart is enlarged. There is coronary artery calcification and mitral annular calcification presen t. Abdominal cavity: There is no evidence for abdominal mass, adenopathy or ascites. Liver: The liver is homogeneous in attenuation on these limited noncontrast images.. Spleen: The spleen is homogeneous in attenuation on these limited noncontrast images. Pancreas: The pancreas is homogeneous in attenuation on these limited noncontrast images. Gall Bladder: The gallbladder is well distended with no evidence for cholelithiasis, wall thickening or pericholecystic edema.. Adrenal glands: The adrenal glands are normal in size and attenuation on these limited noncontrast im ages. Kidneys: The kidneys are homogeneous in attenuation on these limited noncontrast images. There is no evidence for gross renal mass, calculus or hydronephrosis bilaterally. Bowel: The bowel loops are normally placed within the abdomen and pelvis without evidence for dilatat ion or obstruction. There is no evidence for mass lesion. There is mild fecal stasis. There are no in flammatory changes present. There is no evidence for free air. Surgical clips are present from previo us appendectomy. Bladder: There is no evidence for focal bladder wall thickening, calculus or diverticulum. : There is no evidence for pelvic mass or adenopathy. Vasculature: There is no evidence for focal aneurysmal dilatation of the abdominal aorta. Atheroscler otic calcifications present. Osseous structures: There is no acute osseous pathology. The patient is status post extensive interna l fixation of the thoracolumbar spine with prominent degenerative changes. IMPRESSION: 1. Mild fecal stasis without impaction or obstruction. 2. Otherwise, no acute intra-abdominal or pelvic abnormality on these limited noncontrast images. 3. However, there is an approximately 11 mm nodular density left lung base and follow-up CT of the en tire chest with contrast is recommended. 4. Extensive internal fixation of the thoracolumbar spine with degenerative changes present. ACT 112: Negative or not required by law. Electronically signed by: Orlando Tan M.D. 10/25/2021 7:21 AM
[2021-10-25] MEDS: INSULIN ASPART PER UNIT SC SCH ×4 (08:03→20:51)
[2021-10-25] MEDS: ATORVASTATIN 40 MG TAB PO SCH (08:04)
[2021-10-25] MEDS: PRAMIPEXOLE DIHYDROCHLO 0.5 MG TAB PO SCH ×2 (08:04→20:27)
[2021-10-25] MEDS: GABAPENTIN 300 MG CAP PO SCH ×3 (08:05→20:26)
[2021-10-25] MEDS: DULoxetine HCL 60 MG CAP PO SCH ×2 (08:05→20:26)
[2021-10-25] MEDS: PANTOprazole 40 MG TAB PO SCH (08:05)
[2021-10-25] MEDS: ASPIRIN 81 MG ECTAB PO SCH (08:05)
[2021-10-25 08:51] LABS: Basophils # (auto) 0.01 K/uL (0-0.2); Basophils % (auto) 0.2 %; Eosinophils # (auto) 0.18 K/uL (0-0.5); Eosinophils % (auto) 3.4 %; Hematocrit (blood only) 34.4 % (37-47); Hemoglobin 11.2 g/dL (12.0-16.0); Immature Granulocytes # (auto) 0.01 K/uL (0.00-0.02); Immature Granulocytes % (auto) 0.2 %; Lymphocytes # (auto) 1.36 K/uL (1.2-3.4); Lymphocytes % (auto) 25.4 %; Mean Corpuscular Hemoglobin 30.5 pg (25-34); Mean Corpuscular Hgb Conc 32.6 g/dL (32-36); Mean Corpuscular Volume 93.7 fL (80-100); Mean Platelet Volume 9.6 fL (7.4-10.4); Monocytes # (auto) 0.64 K/uL (0.11-0.59); Monocytes % (auto) 11.9 %; Neutrophils # (auto) 3.16 K/uL (1.4-6.5); Neutrophils % (auto) 58.9 %; Platelet Count 177 K/uL (130-400); RDW Coefficient of Variation 13.9 % (11.5-14.5); Red Blood Count 3.67 M/uL (4.2-5.4); White Blood Count 5.36 K/uL (4.8-10.8)
[2021-10-25 09:12] LABS: BUN Creatinine Ratio 11.7 (10-20); Calcium 8.1 mg/dl (8.5-10.1); Creatinine Clr Calc Pharmacy 58.1 ml/min; Est GFR (African American) 71.7 ml/min; Est GFR (Non-African American) 61.9 ml/min; Potassium 3.2 mmol/L (3.5-5.1)
--- NOTE | 2021-10-25 11:16 | CT Scan Report ---
CT shoulder RT wo con CLINICAL HISTORY: pain, right arm weakness COMPARISON STUDY: Chest CT March 19, 2020. TECHNIQUE: Axial images of the right shoulder were obtained without intravenous or intra-articular co ntrast. Sagittal and coronal reconstructions were viewed. Automated exposure control was utilized for the study. A dose lowering technique was utilized adhering to the principles of ALARA. FINDINGS: A 1.1 cm subpleural opacity within the right upper lobe represents atelectasis. There are g roundglass opacities within the right lung which favor atelectasis although air trapping or mild sneha a could appear similar. No acute fractures are identified within visualized portions of the right rib s. No acute fracture of the right shoulder is present. Alignment of the right shoulder is anatomic. M oderate osteoarthritis of the right acromioclavicular joint is noted. There is also mild to moderate glenohumeral joint osteoarthritis. No suspicious osseous lesions are present. Adjacent soft tissues a re unremarkable by CT. There may be fluid within the subcoracoid bursa. IMPRESSION: 1. No acute fracture or dislocation within the right shoulder. 2. Moderate degenerative changes of the right shoulder. ACT 112: Negative or not required by law. Electronically signed by: Nir Jerome M.D. 10/25/2021 11:15 AM
--- NOTE | 2021-10-25 12:55 | Hospitalist Progress Note ---
Date of Service October 25, 2021 Assessment & Plan (1) Acute hypotension: Plan: Resolved with intravenous fluid rehydration (2) Acute dehydration: Plan: Due to poor oral intake recently. Resolved with intravenous fluid resuscitation (3) Hypomagnesemia: Plan: Parenteral replacement ordered. Serial labs (4) Right shoulder pain: Plan: CT scan of the right shoulder pending. Orthopedic consultation requested (5) Diabetes mellitus, type 2: Plan: ADA diet. Sliding scale coverage as needed (6) Hypertension: Plan: Actually hypotensive on admission. Corrected with IV fluids. Will follow (7) Intractable low back pain: Plan: Chronic. Pain control as needed (8) Acute kidney injury: Plan: Normalized with IV fluid resuscitation. Monitor intake and output. Serial labs Plan: OT and PT assessments requested. Eventual discharge to home Admission and Anticipated Discharge Date Admission Date: October 25, 2021 Subjective Alert and oriented. Her main complaint is right shoulder pain and right arm weakness. Orthopedic consultation requested and will obtain CT scan of the right shoulder. IV fluids taper down. Magnesium is still low and potassium is still low. These will be replaced. Creatinine has normalized. She remains on Zosyn but this will be discontinued if cultures remain negative. Review of Systems Review of Systems: Constitutional-no fever or chills ENT-no blurred vision, no double vision, no epistaxis, no sore throat Respiratory-no cough, no wheezing, no shortness of breath Cardiac-no palpitations, no chest pain, no syncope GI-no nausea, vomiting, diarrhea, melena, hematochezia -no urinary retention, no urinary incontinence, no dysuria, no hematuria Musculoskeletal-right shoulder discomfort and right arm weakness Skin-no bruising, no rashes, no pruritus Neuro-no isolated weakness, no paresthesia, no weakness Psych-no depression, no anxiety Physical Exam Physical Exam: General-alert and oriented x3, no fevers, no chills HEENT-head atraumatic and normocephalic, TMs intact bilaterally, pupils equal and reactive to light, extraocular muscles intact Neck-no lymphadenopathy or thyromegaly, trachea midline Chest-clear to auscultation percussion. No rales wheezing or rhonchi Cardiac-regular rate and rhythm, normal S1 and S2, no murmurs Abdomen-normal bowel sounds, nontender, no hepatosplenomegaly Extremities-right shoulder discomfort and limited range of motion. Right arm weakness due to pain Neuro-cranial nerves II through XII intact, motor and sensory function within normal limits. 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 due to right shoulder pain Psych-normal affect, normal mood Results & Data Results & Data ([facility]) Vital Signs (Past 12 Hours) Vital Signs Temp Pulse Pulse Resp BP BP Pulse Ox 10/25/21 12:00 36.8 C 67 14 122/72 97 10/25/21 08:00 74 10/25/21 06:30 72 10/25/21 05:56 35 C L 69 17 131/77 98 10/25/21 05:41 10/25/21 05:00 64 14 118/75 92 10/25/21 04:38 69 16 136/77 99 10/25/21 04:30 70 136/77 97 10/25/21 04:00 58 L 10 L 78/48 L 96 10/25/21 03:30 59 L 12 88/47 L 95 10/25/21 03:00 62 17 96/56 L 96 10/25/21 02:32 66 13 90/54 L 94 10/25/21 01:30 63 13 91/53 L 97 10/25/21 01:00 68 17 92/50 L Pulse Ox 10/25/21 12:00 10/25/21 08:00 10/25/21 06:30 10/25/21 05:56 10/25/21 05:41 97 10/25/21 05:00 10/25/21 04:38 10/25/21 04:30 10/25/21 04:00 10/25/21 03:30 10/25/21 03:00 10/25/21 02:32 10/25/21 01:30 10/25/21 01:00 Laboratory Results 10/25/21 08:27 10/25/21 08:27 PG Care Time/CCT Total # of Minutes Spent Total Time Spent with Patient: Total time spent is greater than 50% in coordination of care (as documented) at patient's floor/unit and/or counseling patient: Coding Level of Care Code 14103 Subseq Hosp Care Lvl 3 Diagnoses Acute hypotension I95.9 Acute dehydration E86.0 Hypomagnesemia E83.42 Right shoulder pain M25.511 Diabetes mellitus, type 2 E11.9 Hypertension I10 Hypertension type: essential hypertension Intractable low back pain M54.5 Acute kidney injury N17.9 (1) Hypertension Hypertension type: essential hypertension Qualified Code(s): I10 - Essential (primary) hypertension
[2021-10-25] MEDS: POTASSIUM CHLORIDE CRTAB 20 MEQ TABCR PO SCH ×2 (14:05→20:37)
[2021-10-25] MEDS: HEPARIN SOD 5,000 UNIT/0.5 ML VIAL SQ SCH ×2 (14:06→20:37)
--- NOTE | 2021-10-25 15:06 | Orthopedic Consultation ---
Date of Service October 25, 2021 Assessment & Plan (1) Arthritis of shoulder region, right: She was seen and examined by Dr. Garcia. She has some shoulder arthritis involving the ac and glenohumeral joints. She does have some stiffness and may be developing some adhesive capsulitis. We offered her a steroid injection for the shoulder and she wants to proceed with that. We will order the medication today and plan to inject her shoulder tomorrow. (2) Adhesive capsulitis of right shoulder: History of Present Illness Reason for Consultation: . Requesting Physician: . Attending Physician: Jefe Christianson MD . 71 year old patient admitted with hypotension. She is c/o right shoulder pain fo r about 6 weeks duration. No injury. It was initially localized around her shoulder but now she is having pain down her entire arm and into the neck at times. No past shoulder problems. She was recently on some oral steroids for several days. She is also taking oxycodone, has a h/o spine surgery and see's pain management. Denies numbness/tingling. Allergies Allergy/AdvReac Type Severity Reaction Status Date / Time cefuroxime AdvReac Intermediate upset Verified 10/24/21 23:14 stomach Home Medications Medication Instructions Recorded Confirmed Type amlodipine 5 mg tablet 5 mg PO QAM 02/09/18 10/24/21 History albuterol sulfate 2.5 mg INHALATION Q4H PRN 08/08/19 10/24/21 History albuterol sulfate 90 mcg/actuation 2 puffs INH Q4H PRN gm 08/08/19 10/24/21 History aerosol inhaler atorvastatin 40 mg tablet 40 mg PO QAM 06/05/20 10/24/21 History glipizide 2.5 mg tablet, extended 2.5 mg PO BID 06/05/20 10/24/21 History release 24 hr losartan 100 1 tab PO QAM 06/05/20 10/24/21 History mg-hydrochlorothiazide 25 mg tablet metformin 1,000 mg tablet 1,000 mg PO BID 06/05/20 10/24/21 History pantoprazole 40 mg tablet,delayed 40 mg PO QAM 06/05/20 10/24/21 History release gabapentin 300 mg capsule 900 mg PO TID cap 08/07/20 10/24/21 History aspirin 81 mg tablet,delayed 81 mg PO QAM 11/15/20 10/24/21 History release pramipexole 1 mg tablet (Mirapex) 1 mg PO BID 11/15/20 10/24/21 History duloxetine 60 mg capsule,delayed 60 mg PO BID #180 cap 01/04/21 10/24/21 Rx release (Cymbalta) oxycodone-acetaminophen 5 mg-325 1 tab PO Q8H PRN #90 tab 09/26/21 10/24/21 Rx mg tablet (Percocet) naloxone 4 mg/actuation nasal 4 mg INTRANASAL Q3M PRN #1 ea 10/09/21 10/24/21 Rx spray (Narcan) oxycodone myristate 9 mg capsule 9 mg PO Q12H #30 ea 10/11/21 10/24/21 Rx sprinkle extended release 12 hr(DON'T CRUSH) (Xtampza ER) Past Med/Surg History Medical History Anemia Chronic SI joint pain Degenerative disc disease Diabetes mellitus, type 2 Diabetic peripheral neuropathy associated with type 2 diabetes mellitus Fatty liver GERD (gastroesophageal reflux disease) History of COVID-19 04/2020 (HOSPITALIZED IN [facility]) History of DVT (deep vein thrombosis) >35 YEARS AGO. PT HIT WITH A BOARD/BAT TO THE LEG AND DEVELOPED CLOT. NO ISSUES SINCE. History of kidney stones Hx of fall 04/2020>FELL AND HOSPITALIZED FOR COVID/HYPOXIA AND "BROKE MY BACK>SENT TO [facility]. WAS IN A DRUG INDUCED COMA FOR WEEKS/HAD BACK SURGERY". Hx of gout Hyperlipidemia Hypertension Intractable low back pain Intractable neuropathic pain of lower extremity Lumbar spinal stenosis Lumbar spondylosis Neurogenic claudication due to lumbar spinal stenosis Restless leg syndrome Right shoulder pain Shoulder pain, right Sleep apnea NO DEVICE USED Surgical History H/O varicose vein ligation and stripping Saphenous vein History of appendectomy 10/19/12 - laparoscopic by Dr Herrera History of back surgery 4 TOTAL BACK SURGERIES (PT UNSURE OF DETAILS) History of section X 3 History of colonoscopy 10/2004 - Dr Carrion. Neg. Repeat in 5 years. History of colonoscopy History of esophagogastroduodenoscopy (EGD) History of herniorrhaphy 02/21/15 - Repair of incarcerated incisional hernia with Surgimesh 10cm in diameter resection of incarcerated omentum by Dr Knutson History of open reduction and internal fixation (ORIF) procedure RT ANKLE History of tooth extraction Family History Mother Osteoporosis Heart disease Cancer Hypertension Brother Diabetes Family history of diabetes mellitus Daughter Cervical cancer Father Parkinsons Other No family history of adverse response to anesthesia Denies family history of Ovarian cancer Breast cancer Colorectal cancer Stroke Asthma Social History Smoking Status: Never smoker Second Hand Exposure: No; Do You Dip or Chew Tobacco: No; Hx Alcohol Use: No Hx Substance Use: No Preferred Language: Sami Communication Ability: Effective Visual Impairment: No Limitations Hearing Ability: Normal Metal Grinder Required: No Beliefs That Will Affect Care: None marital status: Current Living Situation: Spouse current occupational status: retired current occupation: Retired Feels Safe at Home: Yes Safety Concerns: Feels Safe At This Time Dental Care, Regularly: Yes Physical Activity Frequency: Does not Exercise Assistive Devices: Cane, Denture - Upper, Denture - Lower, Glasses and Walker Review of Systems All systems reviewed & are unremarkable except as noted in HPI & below. Physical Exam .Right shoulder: No swelling around her shoulder. She is able to actively raise her arm, full passive over head motion. She does have pain and stiffness with internal/external rotation. Some weakness with resisted abduction. Negative belly press test. Skin is intact. NVI. Results & Data Results & Data Laboratory Results . Diagnostic Findings .No xrays were obtained. She had a ct scan of the shoulder which shows AC joint and glenohumeral joint arthritis. PG Care Time/CCT Total # of Minutes Spent Total Time Spent with Patient: Total time spent is greater than 50% in coordination of care (as documented) at patient's floor/unit and/or counseling patient: Coding Level of Care Code 64619 Inpt Consult Level 3 Diagnoses Arthritis of shoulder region, right M19.011 Adhesive capsulitis of right shoulder M75.01
--- NOTE | 2021-10-25 20:05 | Billing Data ---
Date of Service October 25, 2021 Coding Level of Care Code 20928 Initial Inpt Care Lvl 3
[2021-10-25] MEDS: oxyCODONE/ACETAMINOPHEN 5mg/325mg TAB PO PRN (20:26)
[2021-10-26] MEDS: PIPERACILLIN/TAZOBACTAM 4.5 GM in DEXTROSE 5% 100 ML IV SCH (05:10)
[2021-10-26] MEDS: HEPARIN SOD 5,000 UNIT/0.5 ML VIAL SQ SCH ×2 (05:10→13:30)
[2021-10-26] MEDS ORDERED: TRIAMCINOLONE ACET 40 MG/ML VIAL IA ONE (06:00)
[2021-10-26] MEDS ORDERED: BUPIVACAINE 0.5 % 5 MG/1 ML MPF 30ML VIAL IA ONE (06:00)
[2021-10-26] MEDS: oxyCODONE/ACETAMINOPHEN 5mg/325mg TAB PO PRN (06:02)
--- NOTE | 2021-10-26 06:04 | Electrocardiogram Report ---
Test Reason : Blood Pressure : / mmHG Vent. Rate : 079 BPM Atrial Rate : 079 BPM P-R Int : 160 ms QRS Dur : 136 ms QT Int : 430 ms P-R-T Axes : 033 -51 002 degrees QTc Int : 493 ms Normal sinus rhythm Right bundle branch block Left anterior fascicular block Bifascicular block Possible Lateral infarct (cited on or before 21-APR-2020) Abnormal ECG When compared with ECG of 13-JAN-2021 15:09, Left anterior fascicular block is now Present Left posterior fascicular block is no longer Present Right bundle branch block is now Present Questionable change in initial forces of Anterolateral leads Confirmed by Justus Aguirre ([id number]) on 10/26/2021 6:04:27 AM Referred By: REFERRED SELF Confirmed By:Justus Aguirre
[2021-10-26 07:23] LABS: Basophils # (auto) 0.02 K/uL (0-0.2); Basophils % (auto) 0.4 %; Eosinophils % (auto) 3.9 %; Hematocrit (blood only) 34.8 % (37-47); Hemoglobin 11.4 g/dL (12.0-16.0); Immature Granulocytes # (auto) 0.01 K/uL (0.00-0.02); Immature Granulocytes % (auto) 0.2 %; Lymphocytes # (auto) 1.97 K/uL (1.2-3.4); Lymphocytes % (auto) 38.6 %; Mean Corpuscular Hemoglobin 29.9 pg (25-34); Mean Corpuscular Hgb Conc 32.8 g/dL (32-36); Mean Corpuscular Volume 91.3 fL (80-100); Mean Platelet Volume 9.5 fL (7.4-10.4); Monocytes # (auto) 0.71 K/uL (0.11-0.59); Monocytes % (auto) 13.9 %; Neutrophils # (auto) 2.19 K/uL (1.4-6.5); Platelet Count 221 K/uL (130-400); RDW Coefficient of Variation 13.9 % (11.5-14.5); RDW Standard Deviation 46.1 fL (36.4-46.3); Red Blood Count 3.81 M/uL (4.2-5.4)
[2021-10-26 07:26] LABS: Estimated Average Glucose 174 mg/dl; Hemoglobin A1C 7.7 % (4.5-5.6)
[2021-10-26 07:41] LABS: BUN Creatinine Ratio 10.4 (10-20); Calcium 8.8 mg/dl (8.5-10.1); Creatinine Clr Calc Pharmacy 80.7 ml/min; Est GFR (African American) 103.9 ml/min; Est GFR (Non-African American) 89.7 ml/min; Magnesium 1.8 mg/dl (1.7-2.4); Potassium 3.4 mmol/L (3.5-5.1)
[2021-10-26] MEDS: INSULIN ASPART PER UNIT SC SCH ×2 (08:01→12:30)
[2021-10-26] MEDS: DULoxetine HCL 60 MG CAP PO SCH (08:03)
[2021-10-26] MEDS: ASPIRIN 81 MG ECTAB PO SCH (08:03)
[2021-10-26] MEDS: LACTATED RINGER'S 1,000 ML IV SCH (08:03)
[2021-10-26] MEDS: PANTOprazole 40 MG TAB PO SCH (08:03)
[2021-10-26] MEDS: PRAMIPEXOLE DIHYDROCHLO 0.5 MG TAB PO SCH (08:04)
[2021-10-26] MEDS: GABAPENTIN 300 MG CAP PO SCH ×2 (08:04→13:30)
[2021-10-26] MEDS: ATORVASTATIN 40 MG TAB PO SCH (08:05)
[2021-10-26] MEDS: POLYETHYLENE (MIRALAX) 17 GM PACK PO SCH ×2 (08:05→13:30)
[2021-10-26] MEDS: POTASSIUM CHLORIDE CRTAB 20 MEQ TABCR PO SCH (08:13)
--- NOTE | 2021-10-26 10:58 | Discharge Summary ---
Date of Service October 26, 2021 Admission HPI Per Admitting Provider Rosa Elizabeth is a 71yo female with PMHx significant for T2DM (A1c 7.6 in 05/2021), chronic low back pain with known lumbar spinal stenosis, ambulatory dysfunction with frequent falls, RLS, obesity, HTN, HLD, HERIBERTO (no CPAP), GERD and depression who presented to [facility] ED on 10/25/2021 due to progressively worsening chronic low back pain for several days as well as diarrhea for several weeks. Patient has intractable chronic low back pain, but reports that over last several days her pain med regimen has not helped at all. Also reports that she has felt general weakness and decreased appetite over last several days and has had sbkcalj-fu-ha PO intake. Until 1 month ago she had very constipated stools ~1x per week, but started to have small, watery bouts of diarrhea many times throughout the day over the last month. Has often been incontinent of stool due to this. Denies blood or mucus in stool. Patient does report being treated for pneumonia as outpatient ~1 month ago but denies any more recent illnesses. Denies fever/chills, chest pain, SOB, N/V, abdominal pain, urinary symptoms or rash. In the ED the patient was initially hypotensive to 80s/50s which slightly improved to 90s/50s after 1L NSS bolus. Also was hypoxic to 88% and improved to 94% on 2L NC. No tachycardia or fever. Labs significant for CRP 16.41/ESR 74 (but no leukocytosis), Procal 0.13. Na 135, K 3.4, Cl 94, Mg 1.5. Cr 1.4 with BUN:Cr ratio of 10:1. Lactate 3.2. COVID- 19 negative. CXR without overt cardiopulmonary process. CT A/P with increased colonic fecal debris suggestive of constipation, without evidence for enterocolitis. Patient was given 1L NSS bolus as stated above, and 2nd 1L bag is running currently. Was also given Mg 2g IV. Was also given Zosyn x1 and blood cultures drawn (cx drawn before abx started). Principal Diagnosis Hypovolemia, hypotension, acute kidney injury, hypomagnesemia, hypokalemia, right shoulder capsulitis Discharge Exam General-alert and oriented x3, no fevers, no chills HEENT-head atraumatic and normocephalic, TMs intact bilaterally, pupils equal and reactive to light, extraocular muscles intact Neck-no lymphadenopathy or thyromegaly, trachea midline Chest-clear to auscultation percussion. No rales wheezing or rhonchi Cardiac-regular rate and rhythm, normal S1 and S2, no murmurs Abdomen-normal bowel sounds, nontender, no hepatosplenomegaly Extremities-no cyanosis, clubbing, or edema. Right shoulder tenderness and limited range of motion due to capsulitis Neuro-cranial nerves II through XII intact, motor and sensory function within normal limits, strength symmetrical , no focal deficits Psych-normal affect, normal mood Discharge Data Allergies Allergy/AdvReac Type Severity Reaction Status Date / Time cefuroxime AdvReac Intermediate upset Verified 10/24/21 23:14 stomach Consultations 10/25/21 00:19 ED Decision to Admit Stat 10/25/21 10:09 Consult Orthopedic Surgery Routine Procedures Performed Injection of right shoulder by orthopedics Ordered Studies 10/24/21 22:37 CT abd pelvis wo con Urgent 10/25/21 10:09 CT shoulder RT wo con Routine Hospital Course (1) Acute hypotension: Rosa Elizabeth is a 71yo female with PMHx significant for T2DM (A1c 7.6 in 05/2021), chronic low back pain with known lumbar spinal stenosis, ambulatory dysfunction with frequent falls, RLS, obesity, HTN, HLD, HERIBERTO (no CPAP), GERD and depression who presented to [facility] ED on 10/25/2021 due to progressively worsening chronic low back pain for several days as well as diarrhea for several weeks. Acute Hypotension, resolved; TEA- resolved with IV fluids - SIRS 0 and qSOFA 1 - no sepsis - Lactate 3.2 --> 2.0 after 2L NSS -Treated with IV fluids . Zosyn discontinued. All cultures negative Enteritis with diarrhea: Now resolved. No infectious diarrhea found. Stool PCR panel negative Acute on Chronic Low Back Pain Suspect acute exacerbation is due to constipation. - continue home pain regimen with Percocet 5-325mg PO Q8H and Oxycodone myristate 9mg PO Q12H - continue home Gabapentin Hypomagnesemia repleted Chronic Medical Problems HTN: hold home Amlodipine and Losartan-HCTZ due to hypotension on admission. Restart at discharge Hypokalemia: Corrected with replacement. We will continue potassium at discharge T2DM: A1c 7.6 in 05/2021. ADA diet. SSI while hospitalized. HLD: continue home Aspirin and Atorvastatin Depression: continue home Cymbalta RLS: continue home Pramipexole GERD: continue home Protoni Right shoulder pain due to capsulitis: Orthopedic consultation appreciated. Shoulder injection today, October 26 DVT Prophylaxis: Heparin 7500units SQ Q8H Code Status: full code Disposition: Home today, October 26 (2) Acute dehydration: (3) Diarrhea: (4) Hypomagnesemia: (5) Lactic acidosis: (6) Constipation: (7) Hypoxia: (8) Diabetes: (9) Low back pain: (10) Neurogenic claudication due to lumbar spinal stenosis: (11) Major depressive disorder: (12) Restless leg syndrome: (13) TEA (acute kidney injury): (14) Morbid obesity with BMI of 40.0-44.9, adult: (15) Sleep apnea: (16) Hyperlipidemia: (17) Hypertension: Total Time Total Time Spent Total Time Spent (In Minutes): 35 minutes Discharge Plan Discharge Items Patient Disposition: Home - Self-Care Reason For Visit: HYPOTENSION, ?SEPSIS, CONSTIPATION Discharge Diagnosis: Hypovolemia, systemic hypotension, acute kidney injury, hypomagnesemia, hypokalemia, right shoulder capsulitis Activity: Resume your previous activity Non-emergency contact: Primary Care Provider Call non-emergency contact if: you have any medication questions Follow-up/Referrals: Elda Ng CRNP [Primary Care Provider] - Diet: Carb Consistent or DM2 Addtl Attending Provider Instructions: Continue potassium supplementation at home Pending Studies at Discharge: No Stand-Alone Forms: My [facility] [employer], Smoking Cessation Medications and DC Order Prescriptions: New potassium chloride 20 mEq Tablet,Er Particles/Crystals 20 meq PO DAILY Qty: 30 RF: 0 Continued amlodipine 5 mg tablet 5 mg PO QAM RF: 0 naloxone [Narcan] 4 mg/actuation spray,non-aerosol 4 mg intranasal Q3M PRN (Reason: opioid overdose) Qty: 1 RF: 0 duloxetine [Cymbalta] 60 mg capsule,delayed release(DR/EC) 60 mg PO BID Qty: 180 RF: 0 oxycodone-acetaminophen [Percocet] 5-325 mg tablet 1 tab PO Q8H PRN (Reason: pain) Qty: 90 RF: 0 Xtampza ER 9 mg cap,sprinkl,ER12hr(DONT CRUSH) 9 mg PO Q12H Qty: 30 RF: 0 albuterol sulfate 90 mcg/actuation HFA aerosol inhaler 2 puffs INH Q4H PRN (Reason: shortness of breath or wheezing) RF: 0 albuterol sulfate 2.5 mg /3 mL (0.083 %) solution for nebulization 2.5 mg inhalation Q4H PRN (Reason: Shortness Of Breath) RF: 0 atorvastatin 40 mg tablet 40 mg PO QAM RF: 0 metformin 1,000 mg tablet 1,000 mg PO BID RF: 0 losartan-hydrochlorothiazide 100-25 mg tablet 1 tab PO QAM RF: 0 glipizide 2.5 mg tablet extended release 24hr 2.5 mg PO BID RF: 0 pantoprazole 40 mg tablet,delayed release (DR/EC) 40 mg PO QAM RF: 0 gabapentin 300 mg capsule 900 mg PO TID RF: 0 aspirin 81 mg Tablet,Delayed Release (Dr/Ec) 81 mg PO QAM RF: 0 pramipexole [Mirapex] 1 mg tablet 1 mg PO BID RF: 0 Discharge Orders: Discharge Order (Routine); Ordered 10/26/21 Ordered By: Jefe Nicholson/Other Patient Handouts: Managing Type 2 Diabetes Admission Data Admit Date/Time: 10/25/21 01:24 Attending Provider: Jefe Christianson Admit Provider: Timmy Morley Primary Care Provider: Elda Ng Other Providers: Vishal Oconnor ; Bharath Reyes Coding Level of Care Code D/C DAY MANAGEMENT >30 MINS Diagnoses Acute hypotension I95.9 Acute dehydration E86.0 Diarrhea R19.7 Diarrhea type: unspecified type Hypomagnesemia E83.42 Lactic acidosis E87.2 Constipation K59.00 Hypoxia R09.02 Diabetes E11.9 Diabetes mellitus type: type 2 Diabetes mellitus fdc insulin use: without continuous churn buttermaker use Diabetes mellitus complication status: without complication Low back pain M54.50 Neurogenic claudication due to lumbar spinal stenosis M48.062 Major depressive disorder F33.9 Major depression recurrence: recurrent Active/Remission status: remission status unspecified Restless leg syndrome G25.81 TEA (acute kidney injury) N17.9 Morbid obesity with BMI of 40.0-44.9, adult E66.01; Z68.41 Sleep apnea G47.33 Sleep apnea type: obstructive Hyperlipidemia E78.5 Hyperlipidemia type: unspecified Hypertension I10 Hypertension type: essential hypertension
--- NOTE | 2021-10-26 14:50 | Orthopedic Progress Note ---
Date of Service October 26, 2021 Assessment & Plan (1) Adhesive capsulitis of right shoulder: Patient most likely would benefit from a cortisone injection in her shoulder. Risks and benefits were articulated with patient. The shoulder was sterile prepped with alcohol swabs and 80mg of triamcinalone and 3ml of marcaine were injected into the posterior subacromial space of the right shoulder. Patient tolerated the procedure well. Will see the patient in the clinic in the future for her right shoulder. (2) Arthritis of shoulder region, right: Stephon Lee is a 71 y/o female who was admitted to [facility] for shoulder pain and weakness. Evaluation by ortho (Dr. Garcia) determined adhresive capsulitis as well as right shoulder arthritis. She is a good candidate for a steroid injection. She was scheduled to see ortho in clinic in 1 week but she shoulder pain had escalated. Review of Systems All systems reviewed & are unremarkable except as noted in HPI & below. Physical Exam ROM 0-120 in forward elevation, 90 degrees abduction. 5/5 strength full can testing, 5/5 external rotation. Pain to palpation throughout the glenohumeral joint Results & Data Results & Data Laboratory Results . Diagnostic Findings . PG Care Time/CCT Total # of Minutes Spent Total Time Spent with Patient: Total time spent is greater than 50% in coordination of care (as documented) at patient's floor/unit and/or counseling patient: Coding Level of Care Code 04622 Subseq Hosp Care Lvl 1 Diagnoses Adhesive capsulitis of right shoulder M75.01 Arthritis of shoulder region, right M19.011
== END 2021-10-26 15:35 | disposition home or self-care (01) | DRG 315 ==
LOC: ED 22:21 → SUATTDRO 10-25 01:24 → 1E 10-25 01:24 → 2S 10-26 01:40

== ENCOUNTER 2022-09-03 05:49 | Observation (INO) ==
--- NOTE | 2022-08-28 15:05 | PAT Medication Instructions ---
Medication Instructions Date of Service August 28, 2022 Home Medications Medication Instructions Recorded oxycodone-acetaminophen 5 mg-325 1 tab PO Q8H PRN pain #90 tabs 10/31/ mg tablet (Percocet) duloxetine 60 mg capsule,delayed 60 mg PO BID #180 caps 07/13/22 release (Cymbalta) naloxone 4 mg/actuation nasal 4 mg intranasal Q3M PRN opioid 08/02/22 spray (Narcan) overdose #1 ea morphine 15 mg tablet,extended 15 mg PO Q12H #60 tabs 08/20/22 release amlodipine 5 mg tablet 5 mg PO QAM albuterol sulfate 2.5 mg/3 mL (0.083 %) solution for nebulization 2.5 mg inhalation Q4H PRN Shortness Of Breath albuterol sulfate 90 mcg/actuation aerosol inhaler 2 puffs inhalation Q4H PRN shortness of breath or wheezing atorvastatin 40 mg tablet 40 mg PO QAM glipizide 2.5 mg tablet, extended release 24 hr 2.5 mg PO BID losartan 100 mg-hydrochlorothiazide 25 mg tablet 1 tab PO QAM metformin 1,000 mg tablet 1,000 mg PO BID pantoprazole 40 mg tablet,delayed release 40 mg PO QAM gabapentin 300 mg capsule 900 mg PO TID pramipexole 1 mg tablet (Mirapex) 1 mg PO BID oxycodone-acetaminophen 5 mg-325 mg tablet (Percocet) 1 tab PO Q8H PRN pain duloxetine 60 mg capsule,delayed release (Cymbalta) 60 mg PO BID naloxone 4 mg/actuation nasal spray (Narcan) 4 mg intranasal Q3M PRN opioid overdose morphine 15 mg tablet,extended release 15 mg PO Q12H cyanocobalamin (vitamin B-12) 1,000 mcg tablet 1,000 mcg PO QAM docusate sodium 100 mg capsule (Colace) 100 mg PO HS multivitamin 1 tab PO QAM trazodone 150 mg tablet 150 mg PO HS PRN insomnia Continue as directed naloxone 4 mg/actuation nasal spray (Narcan) 4 mg intranasal Q3M PRN opioid overdose (if needed) DO NOT take the morning of surgery glipizide 2.5 mg tablet, extended release 24 hr 2.5 mg PO BID losartan 100 mg-hydrochlorothiazide 25 mg tablet 1 tab PO QAM metformin 1,000 mg tablet 1,000 mg PO BID cyanocobalamin (vitamin B-12) 1,000 mcg tablet 1,000 mcg PO QAM multivitamin 1 tab PO QAM Take morning of surgery With a small sip of water, OTHERWISE NOTHING TO EAT OR DRINK AFTER MIDNIGHT: amlodipine 5 mg tablet 5 mg PO QAM albuterol sulfate 2.5 mg/3 mL (0.083 %) solution for nebulization 2.5 mg inhalation Q4H PRN Shortness Of Breath (if needed) albuterol sulfate 90 mcg/actuation aerosol inhaler 2 puffs inhalation Q4H PRN shortness of breath or wheezing (if needed) atorvastatin 40 mg tablet 40 mg PO QAM pantoprazole 40 mg tablet,delayed release 40 mg PO QAM gabapentin 300 mg capsule 900 mg PO TID pramipexole 1 mg tablet (Mirapex) 1 mg PO BID oxycodone-acetaminophen 5 mg-325 mg tablet (Percocet) 1 tab PO Q8H PRN pain (if needed) duloxetine 60 mg capsule,delayed release (Cymbalta) 60 mg PO BID morphine 15 mg tablet,extended release 15 mg PO Q12H Take evening before surgery albuterol sulfate 2.5 mg/3 mL (0.083 %) solution for nebulization 2.5 mg inhalation Q4H PRN Shortness Of Breath (if needed) albuterol sulfate 90 mcg/actuation aerosol inhaler 2 puffs inhalation Q4H PRN shortness of breath or wheezing (if needed) glipizide 2.5 mg tablet, extended release 24 hr 2.5 mg PO BID metformin 1,000 mg tablet 1,000 mg PO BID gabapentin 300 mg capsule 900 mg PO TID pramipexole 1 mg tablet (Mirapex) 1 mg PO BID oxycodone-acetaminophen 5 mg-325 mg tablet (Percocet) 1 tab PO Q8H PRN pain (if needed) duloxetine 60 mg capsule,delayed release (Cymbalta) 60 mg PO BID morphine 15 mg tablet,extended release 15 mg PO Q12H docusate sodium 100 mg capsule (Colace) 100 mg PO HS trazodone 150 mg tablet 150 mg PO HS PRN insomnia (if needed) Other Notes If you have any questions please call us at [phone] or [phone] or [phone] or [phone]
--- NOTE | 2022-08-28 15:25 | Anesthesiology Consultation ---
Date of Service August 28, 2022 Assessment & Plan (1) Encounter for pre-operative examination: Chart Review Chart Review: Acceptable Risk for Surgery and Patient seen in Pre Admission Testing - Check BSG AM DOS Per PAT appt on 08/27/22, patient denies any recent travel or large group activities. Pt is vaccinated for Covid. Will leave to surgeon's discretion if preop Covid testing needed. Educated on importance of using Covid precautions one week prior to surgery L3-L4, L4-L5 minimally invasive lumbar decompression 07/28/2018 = done under [facility]. Teaching & Discussion Pre-Anesthesia Teaching/Discussion Notes: Instructed NPO after midnight before surgery,except medications with 15 cc of water. Medication instructions provided according to the PAT guidelines. History Surgery Operation Date: 09/03/22 07:30 Proposed Procedures p Insertion of Intrathecal Catheter and Medication Administration Pump System - Serafin Bishop MD, FIPP Height/Weight Height: 5 ft 1 in Weight: 90.1 kg Allergies Allergy/AdvReac Type Severity Reaction Status Date / Time cefuroxime AdvReac Intermediate upset Verified 08/28/22 14:33 stomach Medications Home Medications Medication Instructions Recorded Confirmed Last Taken amlodipine 5 mg tablet 5 mg PO QAM 02/09/18 08/28/22 08/12/22 05:30 albuterol sulfate 2.5 mg/3 mL 2.5 mg inhalation Q4H PRN 08/08/19 08/28/22 03/19/20 (0.083 %) solution for nebulization Shortness Of Breath albuterol sulfate 90 mcg/actuation 2 puffs inhalation Q4H PRN 08/08/19 08/28/22 Unknown aerosol inhaler shortness of breath or wheezing atorvastatin 40 mg tablet 40 mg PO QAM 06/05/20 08/28/22 08/12/22 05:30 glipizide 2.5 mg tablet, extended 2.5 mg PO BID 06/05/20 08/28/22 08/11/22 16:00 release 24 hr losartan 100 1 tab PO QAM 06/05/20 08/28/22 08/12/22 05:30 mg-hydrochlorothiazide 25 mg tablet metformin 1,000 mg tablet 1,000 mg PO BID 06/05/20 08/28/22 08/11/22 16:00 pantoprazole 40 mg tablet,delayed 40 mg PO QAM 06/05/20 08/28/22 08/12/22 05:30 release gabapentin 300 mg capsule 900 mg PO TID 08/07/20 08/28/22 08/11/22 16:00 pramipexole 1 mg tablet (Mirapex) 1 mg PO BID 11/15/20 08/28/22 08/11/22 20:30 oxycodone-acetaminophen 5 mg-325 1 tab PO Q8H PRN pain #90 tabs 10/31/21 08/28/22 08/11/22 22:00 mg tablet (Percocet) duloxetine 60 mg capsule,delayed 60 mg PO BID #180 caps 07/13/22 08/28/22 08/12/22 05:30 release (Cymbalta) naloxone 4 mg/actuation nasal 4 mg intranasal Q3M PRN opioid 08/02/22 08/28/22 Unknown spray (Narcan) overdose #1 ea morphine 15 mg tablet,extended 15 mg PO Q12H #60 tabs 08/20/22 08/28/22 Unknown release cyanocobalamin (vitamin B-12) 1,000 mcg PO QAM 08/28/22 08/28/22 Unknown 1,000 mcg tablet docusate sodium 100 mg capsule 100 mg PO HS 08/28/22 08/28/22 Unknown (Colace) multivitamin 1 tab PO QAM 08/28/22 08/28/22 Unknown trazodone 150 mg tablet 150 mg PO HS PRN insomnia 08/28/22 08/28/22 Unknown Past Medical History Medical History Chronic SI joint pain Degenerative disc disease Diabetes mellitus, type 2 Glucose only fair controlled Diabetic peripheral neuropathy associated with type 2 diabetes mellitus Fatty liver GERD (gastroesophageal reflux disease) Well controlled and stable History of COVID-19 04/2020 (HOSPITALIZED IN [facility])>RESOLVED History of DVT (deep vein thrombosis) >35 YEARS AGO. PT HIT WITH A BOARD/BAT TO THE LEG AND DEVELOPED CLOT. NO ISSUES SINCE. History of kidney stones Hx of fall 04/2020>FELL AND HOSPITALIZED FOR COVID/HYPOXIA AND "BROKE MY BACK>SENT TO [facility]. WAS IN A DRUG INDUCED COMA FOR WEEKS/HAD BACK SURGERY". Hx of gout Hyperlipidemia Hypertension Intractable neuropathic pain of lower extremity Lumbar spondylosis Neurogenic claudication due to lumbar spinal stenosis Peripheral edema Intermittent (no issues at PAT appt 08/28/22) Restless leg syndrome Sleep apnea NO DEVICE USED Therapeutic opioid-induced constipation (OIC) Exercise / Class Metabolic Activity III < 4 Walking/Shop/Light housework (no chest pain or SOB with short distance, flat surface ambulation (uses walker in public)) Past Family History Family History Mother Osteoporosis Heart disease Cancer Hypertension Brother Diabetes Family history of diabetes mellitus Daughter Cervical cancer Father Parkinsons Other No family history of adverse response to anesthesia Denies family history of Ovarian cancer Breast cancer Colorectal cancer Stroke Asthma Past Surgical History Surgical History H/O varicose vein ligation and stripping Saphenous vein History of appendectomy 10/19/12 - laparoscopic by Dr Herrera History of back surgery 4 TOTAL BACK SURGERIES Most recent - T8-L1 Jun 2020 L2-L5 (prior) (04/2020) History of section X 3 History of colonoscopy History of esophagogastroduodenoscopy (EGD) History of herniorrhaphy 02/21/15 - Repair of incarcerated incisional hernia with Surgimesh 10cm in diameter resection of incarcerated omentum by Dr Knutson History of open reduction and internal fixation (ORIF) procedure RT ANKLE History of tooth extraction Past Anesthesia History No Hx of Anesthesia Complications and No Family Hx of Anesthesia Complications History of PONV No Hx of PONV and No Hx of Motion Sickness Social History Smoking Status: Never smoker Hx Alcohol Use: No Hx Substance Use: No substance use type: does not use Review of Systems Patient denies chest pain, shortness of breath at rest, cough, wheezing, palpitations. No hx of seizures, stroke, AL. No hx of blood transfusions Physical Exam Vital Signs VITALS BP 126/75 P 85 bpm TEMP 98.1 SP02 94% RESP 16 Constitutional no acute distress ENMT Mouth: no TMJ clicking Thyromental Distance: > or= 3.5 Finger Breadths (3.5) Mallampati Class: III Full dentures top and bottom Neck + limited neck extension (significant ) Respiratory normal respiratory effort; no respiratory distress Auscultation: lungs clear to auscultation bilaterally; no wheezes Cardiovascular Rate/Rhythm: regular rate and regular rhythm Heart Sounds: no murmur Vessels: no carotid bruit Musculoskeletal Spine: + pain with cervical ROM and + kyphosis Extremities: extremities normal to inspection Psychiatric Orientation: alert Lab Results Anesthesia Preop Results Results Anesthesia Widget: 2 WBC 10.10 K/ul (4.8-10.8) 08/28/22 Hgb 13.2 g/dl (12.0-16.0) 08/28/22 Hct 40.3 % (37.0-47.0) 08/28/22 Plt 227 K/uL (130-400) 08/28/22 Na 141 mmol/L (136-145) 08/28/22 K 4.3 mmol/L (3.5-5.1) 08/28/22 Cl 104 mmol/L (98-107) 08/28/22 CO2 31 mmol/L (21-32) 08/28/22 BUN 13 mg/dl (6-23) 08/28/22 Creat 0.84 mg/dl (0.6-1.2) 08/28/22 Glucose Level 132 mg/dl (70-99(Fasting)) H 08/28/22 HA1c 7.5 % (4.5-5.6) H 08/28/22 Urine Color Yellow 08/29/22 Urine Appearance Clear (Clear) 08/29/22 Urine pH 6.0 (4.5-7.5) 08/29/22 Urine Specific [place] 1.022 (1.000-1.030) 08/29/22 Urine Protein Negative (Negative) 08/29/22 Urine Glucose (UA) Negative (Negative) 08/29/22 Urine Ketones Negative (Negative) 08/29/22 Urine Blood Negative (Negative) 08/29/22 Urine Nitrite Negative (Negative) 08/29/22 Urine Bilirubin Negative (Negative) 08/29/22 Urine Urobilinogen Negative (Negative) 08/29/22 Urine Leukocyte Esterase Negative (Negative) 08/29/22 Testing Electrocardiogram Date: 08/28/22 Findings: + NSR @ (81bpm ) Left axis deviation RBBB When compared to EKG from October 24orderline criteria for anterior lateral infarct are no longer present per cardio Chest X-Ray Date: 07/03/22 FINDINGS: PA and lateral chest radiographs are compared to study dated 05/27/2022. Correlation is made with chest CT dated 03/19/2020. The heart is mildly enlarged. The pulmonary vascularity is noncongested. There is bibasilar scarring/atelectasis. The lungs and pleural spaces are otherwise clear. There is no pneumothorax. The skeletal structures are osteopenic. The bony thorax appears intact. Extensive postsurgical change is noted throughout the imaged thoracolumbar spine. There is thoracolumbar kyphoscoliosis. IMPRESSION: Mild cardiomegaly with no active disease in the chest. COVID-19 Risk Screen Screening Information COVID-19 Screen Date: 08/28/22 Exposure 21 Days Family/Household +COVID Last 21 Days: No Exposure 10 Days Any COVID Exposure Last 10 Days: No Symptoms Last 10 Days Experienced COVID Sx Last 10 Days: No + COVID 0-90 Days COVID + in Last 0-90 Days: No Risk Plan COVID Risk Plan: No Risk Identified Patient Education COVID Preop Screening Education Complete: Yes
--- NOTE | 2022-09-02 15:34 | History & Physical Report ---
Date of Service September 02, 2022 Assessment & Plan (1) Lumbar postlaminectomy syndrome: (2) Intractable low back pain: (3) Intractable neuropathic pain of lower extremity: (4) Diabetes mellitus, type 2: (5) Weakness of lower extremity: (6) Generalized anxiety disorder: (7) Major depressive disorder: Plan 1. Due to the patient's poor pain control and failure of oral opiate therapies and multiple interventional treatments in the past as well as her extensive surgical history it has been recommended that she undergo permanent implantation of intrathecal pump catheter delivery system after undergoing successful hydromorphone trial. This will attempt to improve pain control, quality of life and diminish side effects from oral opiate therapy. Side effects versus benefits were discussed at length at the time of her last visit. All of her questions were answered. She does elect to proceed with the procedure which will be completed at [facility]. 2. Patient will follow-up in the office in 1 and 2 weeks after her intrathecal pump implantation for wound evaluation and intrathecal pump adjustment as needed History of Present Illness Chief Complaint: Intractable low back pain secondary to lumbar postlaminectomy syndrome Primary Care Provider: SUMMER Bain Mrs. Elizabeth is a 72-year-old morbidly obese white female with multiple comorbid medical conditions including diabetes mellitus, depressive disorder, generalized anxiety disorder, sleep apnea, hypertension and hyperlipidemia who has a longstanding history of chronic intractable low back pain and lower extremity weakness secondary to lumbar postlaminectomy syndrome. Patient has an extensive surgical procedure history at [facility] in [place] with fusion from T8-L1 [address] Nieto as well as prior history of an L2-5 fusion. The patient has continued to struggle with poor pain control and poor daytime functionality with poor quality of life. She continues to struggle with anxiety depressive disorder but remains involved with behavioral health. Pain has been poorly controlled with oral opiate therapy. She continues to complain of severe pain in the axial lumbar spine right greater than left-sided with radiation into the gluteal and lateral hip/proximal thigh locations. She describes lower extremity pain in nondermatomal patterns in the left greater than right lower extremity with paresthesias to the level of the feet. Patient has undergone reevaluation with a surgeon who has deferred any further surgical intervention. The patient was [facility] over the past 6-8 months with minimal improvement in pain complaints. She has recently been experiencing difficulties affording Xtampza. Utilizing Percocet or other opiate therapy for breakthrough pain has been ineffective at pain control. She rates her pain a 6-10/10 on most days reporting significant interference of her ability complete ambulatory and ADL activities. She is utilizing a walker and denies any recent falls or injuries. She reports spending most of her day lying down due to the discomfort. She is unable to complete simple household tasks. She denies bowel or bladder incontinence or saddle anesthesia. She did undergo a successful intrathecal hydromorphone trial which provided her significant pain relief for the duration of the hydromorphone trial. It is therefore been recommended that she undergo permanent implantation of intrathecal hydromorphone pump and catheter delivery system with a target initial dose of 0.06 mg/day. Plan of care discussed with Dr. Kellee Fields. Allergies Allergy/AdvReac Type Severity Reaction Status Date / Time cefuroxime AdvReac Intermediate upset Verified 08/28/22 14:33 stomach Home Medications Medication Instructions Recorded Confirmed Type amlodipine 5 mg tablet 5 mg PO QAM 02/09/18 08/28/22 History albuterol sulfate 2.5 mg/3 mL 2.5 mg inhalation Q4H PRN 08/08/19 08/28/22 History (0.083 %) solution for nebulization Shortness Of Breath albuterol sulfate 90 mcg/actuation 2 puffs inhalation Q4H PRN 08/08/19 08/28/22 History aerosol inhaler shortness of breath or wheezing atorvastatin 40 mg tablet 40 mg PO QAM 06/05/20 08/28/22 History glipizide 2.5 mg tablet, extended 2.5 mg PO BID 06/05/20 08/28/22 History release 24 hr losartan 100 1 tab PO QAM 06/05/20 08/28/22 History mg-hydrochlorothiazide 25 mg tablet metformin 1,000 mg tablet 1,000 mg PO BID 06/05/20 08/28/22 History pantoprazole 40 mg tablet,delayed 40 mg PO QAM 06/05/20 08/28/22 History release gabapentin 300 mg capsule 900 mg PO TID 08/07/20 08/28/22 History pramipexole 1 mg tablet (Mirapex) 1 mg PO BID 11/15/20 08/28/22 History oxycodone-acetaminophen 5 mg-325 1 tab PO Q8H PRN pain #90 tabs 10/31/21 0 08/28/22 Rx mg tablet (Percocet) duloxetine 60 mg capsule,delayed 60 mg PO BID #180 caps 07/13/22 08/28/22 Rx release (Cymbalta) naloxone 4 mg/actuation nasal 4 mg intranasal Q3M PRN opioid 08/02/22 08/28/22 Rx spray (Narcan) overdose #1 ea morphine 15 mg tablet,extended 15 mg PO Q12H #60 tabs 08/20/22 08/28/22 Rx release cyanocobalamin (vitamin B-12) 1,000 mcg PO QAM 08/28/22 08/28/22 History 1,000 mcg tablet docusate sodium 100 mg capsule 100 mg PO HS 08/28/22 08/28/22 History (Colace) multivitamin 1 tab PO QAM 08/28/22 08/28/22 History trazodone 150 mg tablet 150 mg PO HS PRN insomnia 08/28/22 08/28/22 History Past Med/Surg History Medical History Chronic SI joint pain Degenerative disc disease Diabetes mellitus, type 2 Glucose only fair controlled Diabetic peripheral neuropathy associated with type 2 diabetes mellitus Fatty liver GERD (gastroesophageal reflux disease) Well controlled and stable History of COVID-19 04/2020 (HOSPITALIZED IN [facility])>RESOLVED History of DVT (deep vein thrombosis) >35 YEARS AGO. PT HIT WITH A BOARD/BAT TO THE LEG AND DEVELOPED CLOT. NO ISSUES SINCE. History of kidney stones Hx of fall 04/2020>FELL AND HOSPITALIZED FOR COVID/HYPOXIA AND "BROKE MY BACK>SENT TO [facility]. WAS IN A DRUG INDUCED COMA FOR WEEKS/HAD BACK SURGERY". Hx of gout Hyperlipidemia Hypertension Intractable neuropathic pain of lower extremity Lumbar spondylosis Neurogenic claudication due to lumbar spinal stenosis Peripheral edema Intermittent (no issues at PAT appt 08/28/22) Restless leg syndrome Sleep apnea NO DEVICE USED Therapeutic opioid-induced constipation (OIC) Surgical History H/O varicose vein ligation and stripping Saphenous vein History of appendectomy 5/20/13 - laparoscopic by Dr Herrera History of back surgery 4 TOTAL BACK SURGERIES Most recent - T8-L1 Jun 2020 L2-L5 (prior) (04/2020) History of section X 3 History of colonoscopy History of esophagogastroduodenoscopy (EGD) History of herniorrhaphy 02/21/15 - Repair of incarcerated incisional hernia with Surgimesh 10cm in diameter resection of incarcerated omentum by Dr Knutson History of open reduction and internal fixation (ORIF) procedure RT ANKLE History of tooth extraction Family History Mother Osteoporosis Heart disease Cancer Hypertension Brother Diabetes Family history of diabetes mellitus Daughter Cervical cancer Father Parkinsons Other No family history of adverse response to anesthesia Denies family history of Ovarian cancer Breast cancer Colorectal cancer Stroke Asthma Social History Smoking Status: Never smoker Second Hand Exposure: No; Hx Alcohol Use: No Hx Substance Use: No Preferred Language: Maltese Communication Ability: Effective Visual Impairment: No Limitations Hearing Ability: Normal Tube Tester Required: No Beliefs That Will Affect Care: None marital status: Current Living Situation: Spouse current occupational status: retired current occupation: Retired Feels Safe at Home: Yes Dental Care, Regularly: Yes Physical Activity Frequency: Does not Exercise Assistive Devices: Cane, Denture - Upper, Denture - Lower, Glasses, Nebulizer and Walker Review of Systems Review of Systems: Constitutional: Negative for fever, chills, sweats Eyes: Negative for eye pain, photophobia, drainage Ear, nose, mouth, throat: Negative for ear pain, nasal congestion, mouth lesions, change in voice Respiratory: Negative for wheezing, sputum production Cardiovascular: Negative for chest pain, palpitations, calf pain Gastrointestinal: Negative for abdominal pain, belching, bloating Genitourinary: Negative for dysuria, urinary incontinence, urinary urgency Musculoskeletal: Negative for deformities Integumentary: Negative for nail changes, skin yellowing, pruritus Neurological: Negative for abnormal speech, seizure type activity Physical Exam Physical Exam: General: Patient sitting quietly in exam room in no acute distress. Speech and thought process appropriate. Mood and affect appropriate. Cognition intact. Patient morbidly obese and physically deconditioned. Head: Normocephalic and atraumatic. ENT: No evidence of nasal or oral mucosal lesions. Mucous membranes are moist. Eyes: Pupils equal round reactive to light. Neck: Supple without adenopathy and full range of motion. Chest: Nontender to palpation of the costosternal junction. Cardiac: Regular rate and rhythm without murmur. Lungs: Clear to auscultation no wheeze or rhonchi. Abdomen: Soft and nondistended. No organomegaly. Bowel sounds active. Back/spine: Extensive incision extending from the mid thoracic through the lumbosacral junction. Wound appears to be well approximated. No evidence of edema, erythema or skin breakdown at site of GOLD. Patient has maximal tenderness to palpation over the right mid and lateral superior gluteal musculature. Moderately tender at lumbosacral junction which is nonfocal. Patient is tender to provocative testing over the right SI joint and minimally tender corresponding left. Scattered myofascial spasm was present. Limited range of motion in all planes. Lower extremities: EHL 4/5 on the left and dorsiflexion 4/5 on the left. All other strength rated at a 4+/5 throughout without focal deficit. Sensation intact. SLR negative bilaterally. ERNESTO maneuver remains positive on the right and negative on the left. Thigh thrust test positive on right negative on the left. Patient has some generalized tenderness to palpation of the entire lower extremity bilaterally below the level of the knee in a nondermatomal pattern. There is evidence of trace-1+ pitting edema of the right pretibial region extending from the infrapatellar through the ankle region. Neurologic: Cranial nerves grossly intact. Gait is slowed and guarded with use of a single-point cane. (3) Intractable neuropathic pain of lower extremity Laterality: unspecified laterality Qualified Code(s): M79.2 - Neuralgia and neuritis, unspecified (5) Weakness of lower extremity Laterality: bilateral Qualified Code(s): R29.898 - Other symptoms and signs involving the musculoskeletal system (7) Major depressive disorder Major depression recurrence: recurrent Active/Remission status: remission status unspecified Qualified Code(s): F33.9 - Major depressive disorder, recurrent, unspecified
[2022-09-03] MEDS ORDERED: ceFAZolin 2000MG 2,000 MG/15 ML SYR IV SCH (06:00)
[2022-09-03] MEDS ORDERED: LR 15ML/HR IV SCH (06:00)
[2022-09-03] MEDS ORDERED: CLINDAMYCIN/D5W 900 MG/50 ML BAG IV SCH (06:00)
[2022-09-03] MEDS ORDERED: ONDANSETRON INJ 2 MG/ML 2 ML VIAL IV PRN ×2 (06:58→09:56)
[2022-09-03] MEDS ORDERED: fentaNYL citrate PF 100 MCG/2 ML VIAL IV PRN (06:58)
[2022-09-03] MEDS ORDERED: ATROPINE SULFATE 0.1 MG/ML 10ML SYR IV PRN (06:58)
[2022-09-03] MEDS ORDERED: KETOROLAC 30 MG/ML VIAL IV PRN (06:58)
[2022-09-03] MEDS ORDERED: fentaNYL citrate PF 100 MCG/2 ML VIAL ONE (07:13)
[2022-09-03] MEDS ORDERED: LIDOCAINE 2%/EPINEPHRINE 1:100,000 20ML INFIL ONE (07:15)
--- NOTE | 2022-09-03 07:37 | History & Physical Bridge Note ---
Date of Service September 03, 2022 History & Physical Bridge Note History & Physical Bridge Note Rosa Elizabeth is a -year-old female with a history of lumbar postlaminectomy syndrome. She has failed multiple conservative modalities including physical therapy, oral opiates and interventional procedures. Her intrathecal drug delivery system. Patient is scheduled today for insertion of intrathecal catheter and drug delivery system. Patient's past medical history, surgical history, medication and allergy list has been reviewed and no changes noted since his last history and physical examination performed. Review of systems is negative for any cardiac, pulmonary, GI, , endocrine or acute neurological complaints other than what is listed in the HPI section. Physical exam: GENERAL: Patient appears her stated age. Speech and cognition is intact. Mood and affect is appropriate. Sensorium is clear. She is in no acute distress. HEAD: Normocephalic; atraumatic. EYES: Pupils are round, equal, and reactive to light. EOM intact. Mucous membranes moist and pink. No oral lesions noted. ENT: No external ear discharge or lesions. No rhinorrhea or epistaxis. No mucosal lesions. NECK: Full ROM. Trachea is midline. No thyromegaly. No cervical lymphadenopathy. Carotids without bruit. CARDIAC: Regular rate and rhythm. No murmur or gallops noted. CHEST: Regular chest respiration and excursion. Lungs are clear to auscultation. ABDOMEN: No organomegaly appreciated. Bowel sounds are hypoactive. EXTREMITIES: Full ROM and +5 strength of bilateral lower extremities. Distal sensation and pulses intact bilaterally. BACK: Loss of lumbar lordosis. Midline surgical scar. Decreased range of motion. NEURO: Cranial nerves II-XII grossly intact with no focal deficits noted. Deep tendon reflexes in the upper and the lower extremities are symmetrical. Sensation and motor strength testing is unremarkable. SKIN: No lesions, erythema, or rashes noted. ASSESSMENT: Lumbar postlaminectomy syndrome. RECOMMENDATIONS: Patient been offered intrathecal drug delivery system implantation to treat her lumbar postlaminectomy syndrome. History reviewed, examination performed, pertinent laboratory and imaging studies reviewed. No contraindications noted to proceeding with the proposed procedure. Potential risks including infection, bleeding, hematoma, nerve injury, persistent back pain, injury to the spinal cord, dural puncture with persistent cerebrospinal fluid leak, post dural puncture headache which may require additional interventional procedures to treat were discussed with the patient in detail. Alternative treatments were also discussed. Patient's questions were answered and gives informed consent to proceed with the proposed procedure.
[2022-09-03] MEDS ORDERED: CLINDAMYCIN 900 MG/D5W 50 ML BAG IV ONE (07:43)
[2022-09-03] MEDS ORDERED: HYDROmorphone PAIN PUMP--Supplied by Pain Clinic IT SCH (07:45)
[2022-09-03] MEDS ORDERED: DEXAMETHASONE SOD INJ 4 MG/ML VIAL ONE (08:35)
[2022-09-03] MEDS ORDERED: PROPOFOL IV EMULSION 10 MG/ML 20 ML VIAL IV ONE (08:36)
[2022-09-03] MEDS ORDERED: LIDOCAINE 2% MPF LOCAL 5 ML VIAL ONE (08:36)
[2022-09-03] MEDS ORDERED: ROCURONIUM BROMIDE 10 MG/ML 5 ML VIAL IV ONE (08:36)
[2022-09-03] MEDS ORDERED: IOPAMIDOL INJ 61% 15 ML VIAL INJ ONE (08:58)
[2022-09-03] MEDS ORDERED: MAGNESIUM SULFATE / D5W 1 GM/100 ML BAG IV SCH (09:45)
[2022-09-03] MEDS ORDERED: diphenhydrAMINE Capsule 25 MG CAP PO PRN (09:56)
[2022-09-03] MEDS ORDERED: HYDROCODONE/ACETAMOPHEN 5/325MG TAB PO PRN (09:56)
[2022-09-03] MEDS ORDERED: NALOXONE HCL 0.4 MG/1 ML VIAL/CARP IV PRN (09:56)
[2022-09-03] MEDS ORDERED: HYDROmorphone INJ 0.5 MG/0.5 ML SYR IV PRN (09:56)
--- NOTE | 2022-09-03 09:58 | Operative Report ---
Post Operative Report Pre & Post Diagnosis Operation Date: 09/03/22 07:30 Pre-Op Diagnosis: Lumbar post laminectomy syndrome Post-Op Diagnosis: Lumbar post laminectomy syndrome I identified the patient and participated in the time-out.: Yes Procedure Operation Date: 09/03/22 07:30 Actual Procedures Insertion of Intrathecal Catheter and Medication Administration Pump System - Serafin Bishop MD, ADEOLA Refill and reprograming intrathecal pum. Surgeon Serafin Bishpo MD, ADEOLA Type Disk Quality Control Supervisor Keely Fields DO Estimated Blood Loss 25 Findings Consistent with Post-Op Diagnosis Specimens None Drains Noine Complications none Disposition Disposition: Recovery Room Description of Procedure Intrathecal pump insertion, Catheter access port study, and Postprocedure Reprogramming and Analysis PREOPERATIVE DIAGNOSIS: Chronic pain secondary to lumbar postlaminectomy syndrome. POSTOPERATIVE DIAGNOSIS: Same. COMPLICATIONS: None. SURGEON: Dr. Bishop. TEST RIDER: Keely zaman DO ANESTHESIA: General. Prior to starting, the Patients diagnosis and the procedure were reviewed with the patient in detail. Possible risks and complications including infection, bleeding, damage to surrounding structures, injury to spinal cord and nerves, postural puncture headache and increased pain were discussed. Alternative therapies were also reviewed. Also, the need for routine refill of the pump on an ongoing basis until pump is explanted was discussed with the patient. Patients questions were answered and they agreed to proceed. Informed consent was obtained. Allergies and medication list was reviewed. The patient was brought to the operating room and placed in supine position. Biplanar fluoroscopy and Isovue-M 300 contrast was utilized to assist in placement of the intrathecal needle and to evaluate the catheter position. 900 mg of clindamycin was given for antibiotic prophylaxis. General anesthesia was induced uneventfully and patient was repositioned in left lateral position. On examination, no signs of skin breakdown or infection were noted at the operative sites. Entire thoracic lumbar area and right lower quadrant of the abdomen were cleansed with DuraPrep followed by Betadine. Sterile drapes were applied. Immediately prior to starting the procedure, a ``time out was conducted with the staff and the patient where the patient was identified, proposed procedure was verified, consent was reviewed and the proper site for the planned procedure was identified. Using biplanar fluoroscopic guidance, a 16-gauge spinal needle was used to gain access to the CSF through the L4/L5 interspace using fluoroscopy. No blood was noted. Clear and free CSF flow was obtained and the intrathecal catheter was passed through the needle to position the catheter tip at the approximate T9 vertebral body level. The stylet was then removed. A 1-1/2 inch midline incision was made surrounding the intrathecal needle. Hemostasis was achieved. The spinal needle was then removed. A pursestring sutures using 0 silk were taken around the catheter site to secure the catheter to the supraspinous ligaments. Formattatronic butterfly anchor was used to secure the catheter to the underlying supraspinous ligament with 0 silk sutures. CSF flow from the intrathecal catheter was evident aspiration after anchoring of the catheter to the fascia. Then in the right lower quadrant a pocket for the intrathecal pump was made using scalpel, blunt dissection and electrocautery. Hemostasis was achieved using electrocautery. A passer was used to transfer the intrathecal pump catheter underneath the skin and subcutaneous tissues through to the pocket incision. After transfer of the end of the catheter to the pocket incision aspiration of the intrathecal catheter revealed free flowing CSF. Both pocket and midline axial incisions were irrigated with sterile normal saline with bacitracin. The intrathecal pump was filled was rinsed and filled with hydromorphone 1 mg/ml per protocol. The intra thecal catheter was not trimmed. The suture-less connector was connected to the end the intrathecal pump and aspiration from of the end of the catheter demonstrated free-flowing CSF. It was then connected to the intrathecal pump. The intrathecal pump was anchored in the pocket with 4-0 Prolene sutures. The skin and subcutaneous tissues of both incisions were closed with a continuous antibiotic coated STRATAFIX suture followed by antibiotic coated 3-0 running strata fix suture. Pernio dressing in Dermabond was applied to the incisions. Aquacel bandage was used to cover the incisions.. Abdominal binder was applied. No complications were noted throughout the procedure. The patient tolerated the procedure and general anesthesia well and was extubated at the end of the procedure. The patient was then transferred to the recovery room in stable condition. Intrathecal pump was then interrogated and programmed parameters listed below. The patient will follow up with our clinic within 7 days for a wound check and then plan to have the queenie removed at day 14. Pump size inserted: 20 ml Level of catheter: Approximate T9 Catheter trimmed to: 0 cm Medication placed in pump: Hydromorphone 1 mg/ml Daily dose: 0.0749 mg/24 hours I attest to the content of the Intraoperative Record and any orders documented therein. Any exceptions are noted below.
[2022-09-03] MEDS ORDERED: PHARMACY GLYCEMIC MGMT CONSULT PRN (10:09)
--- NOTE | 2022-09-03 11:09 | Anesthesiology Progress Note ---
Date of Service September 03, 2022 Anesthesia Post Procedure Vital Signs Vital Signs: Temp Pulse Pulse Resp BP BP Pulse Ox 09/03/22 10:45 36.6 C 85 17 129/72 93 09/03/22 10:35 86 17 128/67 96 09/03/22 10:25 88 13 130/75 93 09/03/22 10:15 90 15 134/77 100 09/03/22 10:05 36.4 C L 91 H 21 144/77 H 96 09/03/22 06:28 36.8 C 82 20 155/85 H 92 O2 Del Method O2 Flow Rate 09/03/22 10:45 Room Air 09/03/22 10:35 Room Air 09/03/22 10:25 Room Air 09/03/22 10:15 Oxymask 5 09/03/22 10:05 Oxymask 5 09/03/22 06:28 Room Air Pain Intensity Lower Back: Pain Intensity: 7 Bilateral Leg: Pain Intensity: 7 Right Abdomen: Pain Intensity: 4 Transfer of Care Handoff Completed per policy Notes Mental Status: alert / awake / arousable Patient Amnestic to Procedure: Yes Nausea / Vomiting: adequately controlled Pain: adequately controlled Airway Patency, RR, SpO2: stable & adequate BP & HR: stable & adequate Hydration State: stable & adequate Anesthetic Complications: no major complications apparent
[2022-09-03] MEDS ORDERED: ALBUTEROL 0.083% NEBU SOLN 3 ML VIAL INH PRN (12:07)
[2022-09-03] MEDS ORDERED: ALBUTEROL HFA 8 GM INHALER INH PRN (12:07)
[2022-09-03] MEDS ORDERED: traZODone HCL 50 MG TAB PO PRN (12:07)
[2022-09-03] MEDS ORDERED: NALOXONE NASAL SPRAY 4 MG ER HOMEPACK PRN (12:07)
[2022-09-03] MEDS ORDERED: CARBOHYDRATES FOR HYPOGLYCEMIA PO PRN (13:30)
[2022-09-03] MEDS ORDERED: GLUCAGON FOR INJ 1 MG VIAL IM PRN (13:30)
[2022-09-03] MEDS ORDERED: GLUCOSE 40% GEL 15 GM TUBE PO PRN (13:30)
[2022-09-03] MEDS ORDERED: DEXTROSE 50% 50 ML SYRINGE IV PRN (13:30)
[2022-09-03] MEDS ORDERED: GLUCOSE 10 TAB/TUBE PO PRN (13:30)
--- NOTE | 2022-09-03 13:55 | Pharmacy Report ---
Pharmacy Glycemic Short Note 2 - Date of Service September 03, 2022 - Glycemic Short BSG Results (Last 24 hours): 09/03/22 09/03/22 06:10 10:10 POC Glucose 93 162 H OUTPATIENT ANTIDIABETIC REGIMEN: * Metformin 1 g PO BID * Glipizide 2.5 mg PO BID HbA1c: 7.5% (08/28/22) ASSESSMENT: * SD is a 72 year old female POD #0 s/p intrathecal pain pump insertion * Received 4 mg IV dexamethasone in OR * Reasonably well-controlled BSGs with orals only as an outpatient * Preop BSG of 93 mg/dL and postop BSG of 163 mg/dL * Despite good fasting BSG, will give one-time dose of basal with fairly aggressive weight-based Novolog since patient's BSGs are trending up after steroid administration in OR PLAN FOR INPATIENT GLYCEMIC CONTROL: * Hold outpatient oral diabetes medications * Basal insulin * Lantus 10 units SQ x 1 (~0.1 unit/kg) * Bolus insulin * NovoLog per scale ACHS or Q6hrs while NPO * Goal Range: Low 110 mg/dL - High 140 mg/dL * Correction Factor: 20 mg/dL/unit * Nutritional / Prandial insulin per carb ratio of 1 unit per 7 grams CHO consumed
[2022-09-03] MEDS ORDERED: LANTUS PER UNIT CHARGE SQ ONE ×3 (14:00→16:30)
[2022-09-03] MEDS: INSULIN ASPART PER UNIT CHARGE SC SCH ×3 (14:34→21:11)
[2022-09-03] MEDS: GABAPENTIN 300 MG CAP PO SCH ×2 (14:37→21:28)
--- NOTE | 2022-09-03 17:20 | Hospitalist Consultation ---
Date of Consultation September 03, 2022 Assessment & Plan (1) Neurogenic claudication due to lumbar spinal stenosis: Intrathecal pump implanted and adjust by pain management. Other medications for pain control include gabapentin 900 3 times daily pramipexole 1 mg twice daily and breakthrough hydromorphone IV for pain as well as hydrocodone acetaminophen for pain (2) Major depressive disorder: Chronic and stable continue duloxetine (3) Diabetes mellitus, type 2: Chronic and stable typically on glipizide and metformin was given glargine post procedure and is on insulin/scale at the present time On atorvastatin for secondary risk prevention for cardiovascular disease with her diabetes and hypertension (4) Hypertension: Chronic stable continue losartan hydrochlorothiazide, amlodipine 5 mg (5) Sleep apnea: Patient has sleep apnea and will have noninvasive positive pressure device offered trazodone as needed for sleep History of Present Illness Attending Physician: Serafin Bishop MD, [facility] History of Present Illness 72-year-old female with lumbar postlaminectomy syndrome intractable neuropathic pain. Patient had failed outpatient therapy and underwent a special in her thecal hydromorphone trial which provided her significant relief for pain subsequently she was brought in our facility for implantation of intrathecal hydromorphone pain pump and catheter delivery Patient's medical problems include diabetes mellitus depression and general anxiety with sleep apnea hypertension hyperlipidemia Patient is seen in the company of her family she is feeling well postoperatively only pain at the pump implantation site on her abdomen Allergies Allergy/AdvReac Type Severity Reaction Status Date / Time cefuroxime AdvReac Intermediate upset Verified 09/03/22 06:15 stomach Home Medications Medication Instructions Recorded Confirmed Type amlodipine 5 mg tablet 5 mg PO QAM 02/09/18 09/03/22 History albuterol sulfate 2.5 mg/3 mL 2.5 mg inhalation Q4H PRN 08/08/19 09/03/22 History (0.083 %) solution for nebulization Shortness Of Breath albuterol sulfate 90 mcg/actuation 2 puffs inhalation Q4H PRN 08/08/19 09/03/22 History aerosol inhaler shortness of breath or wheezing atorvastatin 40 mg tablet 40 mg PO QAM 06/05/20 09/03/22 History glipizide 2.5 mg tablet, extended 2.5 mg PO BID 06/05/20 09/03/22 History release 24 hr losartan 100 1 tab PO QAM 06/05/20 09/03/22 History mg-hydrochlorothiazide 25 mg tablet metformin 1,000 mg tablet 1,000 mg PO BID 06/05/20 09/03/22 History pantoprazole 40 mg tablet,delayed 40 mg PO QAM 06/05/20 09/03/22 History release gabapentin 300 mg capsule 900 mg PO TID 08/07/20 09/03/22 History pramipexole 1 mg tablet (Mirapex) 1 mg PO BID 11/15/20 09/03/22 History oxycodone-acetaminophen 5 mg-325 1 tab PO Q8H PRN pain #90 tabs 10/31/21 09/03/22 Rx mg tablet (Percocet) duloxetine 60 mg capsule,delayed 60 mg PO BID #180 caps 07/13/22 09/03/22 Rx release (Cymbalta) naloxone 4 mg/actuation nasal 4 mg intranasal Q3M PRN opioid 08/02/22 09/03/22 Rx spray (Narcan) overdose #1 ea morphine 15 mg tablet,extended 15 mg PO Q12H #60 tabs 08/20/22 09/03/22 Rx release cyanocobalamin (vitamin B-12) 1,000 mcg PO QAM 08/28/22 09/03/22 History 1,000 mcg tablet docusate sodium 100 mg capsule 100 mg PO HS 08/28/22 09/03/22 History (Colace) multivitamin 1 tab PO QAM 08/28/22 09/03/22 History trazodone 150 mg tablet 150 mg PO HS PRN insomnia 08/28/22 09/03/22 History Patient History Medical History Chronic SI joint pain Degenerative disc disease Diabetes mellitus, type 2 Glucose only fair controlled Diabetic peripheral neuropathy associated with type 2 diabetes mellitus Fatty liver GERD (gastroesophageal reflux disease) Well controlled and stable History of COVID-19 04/2020 (HOSPITALIZED IN [facility])>RESOLVED History of DVT (deep vein thrombosis) >35 YEARS AGO. PT HIT WITH A BOARD/BAT TO THE LEG AND DEVELOPED CLOT. NO ISSUES SINCE. History of kidney stones Hx of fall 04/2020>FELL AND HOSPITALIZED FOR COVID/HYPOXIA AND "BROKE MY BACK>SENT TO [facility]. WAS IN A DRUG INDUCED COMA FOR WEEKS/HAD BACK SURGERY". Hx of gout Hyperlipidemia Hypertension Intractable neuropathic pain of lower extremity Lumbar spondylosis Neurogenic claudication due to lumbar spinal stenosis Peripheral edema Intermittent (no issues at PAT appt 08/28/22) Restless leg syndrome Sleep apnea NO DEVICE USED Therapeutic opioid-induced constipation (OIC) Surgical History H/O varicose vein ligation and stripping Saphenous vein History of appendectomy 10/19/12 - laparoscopic by Dr Herrera History of back surgery 4 TOTAL BACK SURGERIES Most recent - T8-L1 Jun 2020 L2-L5 (prior) (04/2020) History of section X 3 History of colonoscopy History of esophagogastroduodenoscopy (EGD) History of herniorrhaphy 02/21/15 - Repair of incarcerated incisional hernia with Surgimesh 10cm in diameter resection of incarcerated omentum by Dr Knutson History of open reduction and internal fixation (ORIF) procedure RT ANKLE History of tooth extraction Family History Mother Osteoporosis Heart disease Cancer Hypertension Brother Diabetes Family history of diabetes mellitus Daughter Cervical cancer Father Parkinsons Other No family history of adverse response to anesthesia Denies family history of Ovarian cancer Breast cancer Colorectal cancer Stroke Asthma Social History Smoking Status: Never smoker Second Hand Exposure: No; Hx Alcohol Use: No Hx Substance Use: No Preferred Language: Chilean Communication Ability: Effective Visual Impairment: No Limitations Hearing Ability: Normal Director Federal Required: No Beliefs That Will Affect Care: None marital status: Current Living Situation: Spouse current occupational status: retired current occupation: Retired Feels Safe at Home: Yes Safety Concerns: Feels Safe At This Time Dental Care, Regularly: Yes Physical Activity Frequency: Does not Exercise Assistive Devices: Cane, Denture - Upper, Denture - Lower, Glasses, Nebulizer and Walker Physical Exam Physical Exam: Awake alert appropriate. Card exam is regular lungs are clear she is sitting and eating so abdomen cannot be appropriate exam and she is only mildly tender in the right quadrant. Extremities are without edema Neurologically she is intact with distal strength and sensation to her legs Results & Data Results & Data Vital Signs (Past 12 Hours) Vital Signs Temp Pulse Pulse Resp BP BP Pulse Ox 09/03/22 14:30 98.1 F 91 H 20 127/66 92 09/03/22 13:30 96 H 16 136/74 97 09/03/22 13:00 96 H 21 145/79 H 93 09/03/22 12:30 93 H 15 134/72 93 09/03/22 12:00 92 H 18 143/76 H 94 09/03/22 11:45 88 14 139/73 93 09/03/22 11:30 86 15 140/73 94 09/03/22 11:15 87 20 129/79 95 09/03/22 11:00 88 20 143/80 H 95 09/03/22 10:45 97.9 F 85 17 129/72 93 09/03/22 10:35 86 17 128/67 96 09/03/22 10:25 88 13 130/75 93 09/03/22 10:15 90 15 134/77 100 09/03/22 10:05 97.5 F L 91 H 21 144/77 H 96 09/03/22 06:28 98.2 F 82 20 155/85 H 92 O2 Del Method O2 Flow Rate 09/03/22 14:30 Room Air 09/03/22 13:30 Nasal Cannula 2 09/03/22 13:00 Nasal Cannula 2 09/03/22 12:30 Nasal Cannula 2 09/03/22 12:00 Nasal Cannula 2 09/03/22 11:45 Nasal Cannula 2 09/03/22 11:30 Nasal Cannula 2 09/03/22 11:15 Nasal Cannula 2 09/03/22 11:00 Nasal Cannula 2 09/03/22 10:45 Room Air 09/03/22 10:35 Room Air 09/03/22 10:25 Room Air 09/03/22 10:15 Oxymask 5 09/03/22 10:05 Oxymask 5 09/03/22 06:28 Room Air PG Care Time/CCT Total # of Minutes Spent Total Time Spent with Patient: Total time spent is greater than 50% in coordination of care (as documented) at patient's floor/unit and/or counseling patient: Coding Level of Care Code 97953 IN/OBS CONSULT LVL 2,35M Diagnoses Neurogenic claudication due to lumbar spinal stenosis M48.062 Major depressive disorder F33.9 Active/Remission status: remission status unspecified Major depression recurrence: recurrent Diabetes mellitus, type 2 E11.9 Hypertension I10 Hypertension type: essential hypertension Sleep apnea G47.33 Sleep apnea type: obstructive (2) Major depressive disorder Active/Remission status: remission status unspecified Major depression recurrence: recurrent Qualified Code(s): F33.9 - Major depressive disorder, recurrent, unspecified (4) Hypertension Hypertension type: essential hypertension Qualified Code(s): I10 - Essential (primary) hypertension (5) Sleep apnea Sleep apnea type: obstructive Qualified Code(s): G47.33 - Obstructive sleep apnea (adult) (pediatric)
[2022-09-03] MEDS: HYDROcodone/ACETAMINOPHEN 10/325 TAB PO PRN (20:59)
[2022-09-03] MEDS ORDERED: DOCUSATE SODIUM 100 MG CAP PO SCH (21:00)
[2022-09-03] MEDS: PRAMIPEXOLE DIHYDROCHLO 0.5 MG TAB PO SCH (21:27)
[2022-09-03] MEDS: DULoxetine HCL 60 MG CAP PO SCH (21:28)
[2022-09-03] MEDS: DOCUSATE SODIUM 100 MG CAP PO SCH (21:28)
[2022-09-04] MEDS: HYDROcodone/ACETAMINOPHEN 10/325 TAB PO PRN (03:10)
[2022-09-04] MEDS: INSULIN ASPART PER UNIT CHARGE SC SCH (08:26)
[2022-09-04] MEDS: DOCUSATE SODIUM 100 MG CAP PO SCH (08:26)
[2022-09-04] MEDS: DULoxetine HCL 60 MG CAP PO SCH (08:27)
[2022-09-04] MEDS: GABAPENTIN 300 MG CAP PO SCH (08:28)
[2022-09-04] MEDS: PRAMIPEXOLE DIHYDROCHLO 0.5 MG TAB PO SCH (08:31)
[2022-09-04] MEDS ORDERED: LOSARTAN/HCTZ 50/12.5MG TAB PO SCH (09:00)
[2022-09-04] MEDS ORDERED: ATORVASTATIN 40 MG TAB PO SCH (09:00)
[2022-09-04] MEDS ORDERED: PANTOprazole 40 MG TAB PO SCH (09:00)
[2022-09-04] MEDS ORDERED: amLODIPine BESYLATE 5 MG TAB PO SCH (09:00)
[2022-09-04] MEDS ORDERED: CYANOCOBALAMIN (B-12) 500 MCG TABLET PO SCH (09:00)
[2022-09-04] MEDS ORDERED: MULTIVITAMIN TAB PO SCH (09:00)
--- NOTE | 2022-09-04 09:56 | Pain Management Progress Note ---
Date of Service September 04, 2022 Assessment & Plan (1) Neurogenic claudication due to lumbar spinal stenosis: (2) Intractable low back pain: (3) Implantable intrathecal infusion pump present: Plan 1. Pain is well controlled with implanted intrathecal pump containing Hydromorphone. No dose changes were made today. 2. Dressings changed. Instructed to change dry dressings daily. 3. Continue to wear abdominal binder 24/7 x 4 weeks, then 4 weeks during activity only. 4. Follow up for wound check appointments on 09/10 at 1030 and 09/17 at 1030 with Carlton Correa PA-C 5. Take Hydrocodone 5/325mg x 6 hours if needed for pain. Admission and Anticipated Discharge Date Admission Date: September 03, 2022 Subjective Mrs. Valdivia is a 72-year-old female that is status post implantation of intrathecal pump and catheter delivery system. She is reporting good pain relief this morning. There is some incisional pain in the thoracolumbar region. Pain is aggravated with prolonged standing and leaning against the hospital chair. Pain is rated 4/10 currently. She has been able to walk to the bathroom with her cane. There is a non-positional headache in the frontal area since surgery. Patient denies any vision changes, lightheadedness, extremity weakness, fevers, chills, nausea, vomiting, itching. Physical Exam Physical Exam: GENERAL: This is a 72 year old female that does not appear in any acute distress. HEAD/FACE: Normocephalic and atraumatic. EYES: No drainage or conjunctival injection. ENT: Nose without bleeding or discharge. Oral mucosa moist. NECK: Full ROM without apparent pain. No swelling or masses noted. RESPIRATORY: Patient with unlabored breathing. No signs of respiratory distress. CHEST/AXILLA: Chest movement symmetrical. No deformities noted. ABDOMEN/GI: Intrathecal pump is located in the right lower abdomen. Nontender. BACK: Moves without difficulty SKIN: Incision along the thoracolumbar and the RLQ abdomen appear well. Prineo bandage intact. Dry dressings changed today. No surrounding erythema, warmth, drainage. MS/EXTREMITY: No swelling, no deformities. Moving extremities appropriately. NEURO: Alert and appears oriented. Speech is fluent. Cranial Nerves are grossly intact. PSYCH: Alert, pleasant, affect is calm
--- NOTE | 2022-09-04 10:02 | Discharge Summary ---
Date of Service September 04, 2022 Admission HPI Per Admitting Provider Mrs. Elizabeth is a 72-year-old morbidly obese white female with multiple comorbid medical conditions including diabetes mellitus, depressive disorder, generalized anxiety disorder, sleep apnea, hypertension and hyperlipidemia who has a longstanding history of chronic intractable low back pain and lower extremity weakness secondary to lumbar postlaminectomy syndrome. Patient has an extensive surgical procedure history at [facility] in [place] with fusion from T8-L1 [address] Nieto as well as prior history of an L2-5 fusion. The patient has continued to struggle with poor pain control and poor daytime functionality with poor quality of life. She continues to struggle with anxiety depressive disorder but remains involved with behavioral health. Pain has been poorly controlled with oral opiate therapy. She continues to complain of severe pain in the axial lumbar spine right greater than left-sided with radiation into the gluteal and lateral hip/proximal thigh locations. She describes lower extremity pain in nondermatomal patterns in the left greater than right lower extremity with paresthesias to the level of the feet. Patient has undergone reevaluation with a surgeon who has deferred any further surgical intervention. The patient was transition to Xtampza ER over the past 6-8 months with minimal improvement in pain complaints. She has recently been experiencing difficulties affording Xtampza. Utilizing Percocet or other opiate therapy for breakthrough pain has been ineffective at pain control. She rates her pain a 6-10/10 on most days reporting significant interference of her ability complete ambulatory and ADL activities. She is utilizing a walker and denies any recent falls or injuries. She reports spending most of her day lying down due to the discomfort. She is unable to complete simple household tasks. She denies bowel or bladder incontinence or saddle anesthesia. She did undergo a successful intrathecal hydromorphone trial which provided her significant pain relief for the duration of the hydromorphone trial. It is therefore been recommended that she undergo permanent implantation of intrathecal hydromorphone pump and catheter delivery system with a target initial dose of 0.06 mg/day. Plan of care discussed with Dr. Kellee Fields. Discharge Data Consultations 09/03/22 10:01 Consult Hospitalist Routine Procedures Performed Operation Date: 09/03/22 07:30 Actual Procedures p Insertion of Intrathecal Catheter and Medication Administration Pump System(Not Applicable) - Serafin Bishop MD, FIPP Hospital Course (1) Neurogenic claudication due to lumbar spinal stenosis: (2) Intractable low back pain: (3) Implantable intrathecal infusion pump present: Plan 1. Pain is well controlled with implanted intrathecal pump containing Hydromorphone. No dose changes were made today. 2. Dressings changed. Instructed to change dry dressings daily. 3. Continue to wear abdominal binder 24/7 x 4 weeks, then 4 weeks during activity only. 4. Follow up for wound check appointments on 09/10 at 1030 and 09/17 at 1030 with Carlton Correa PA-C 5. Take Hydrocodone 5/325mg x 6 hours if needed for pain.
== END 2022-09-04 11:31 | disposition home or self-care (01) ==
LOC: PACUINP 05:49 → ASU 05:49 → 2S 14:25

== ENCOUNTER 2023-06-30 18:38 | Inpatient (IN) ==
--- NOTE | 2023-06-30 18:43 | ED Triage Note ---
Date of Service June 30, 2023 Provider in Triage Author: Karan Vargas A History of Present Illness This patient was briefly evaluated while in triage. An abbreviated physical exam was performed. This patient is a 73-year-old Female who presents to the ED for evaluation of headache for one day, pains in collarbone, n/v/d, and general weakness. Physical Exam Limited Triage Exam: VITALS: Vitals are noted on the nurse's note and reviewed by myself. Vital signs stable. GENERAL: Well-developed, well-nourished,white female, who is in no acute distress and resting comfortably. Patient is cooperative with the examination. HEART: Regular rate and rhythm without murmurs gallops or rubs. LUNGS: Clear to auscultation bilaterally without wheezes, rales or rhonchi. No retractions or accessory muscle use. NEURO: Patient was alert and oriented to person place and time. CN II through XII grossly intact. Initial orders for labs and / or imaging were placed and patient was placed in the waiting area until a bed is available. Please see further documentation for the full ED course. MDM / Impression Impression Impression: Headache, Diarrhea, Acute neck pain, Nausea & vomiting, Acute dehydration, Hypomagnesemia
[2023-06-30] MEDS: SODIUM CHLORIDE 0.9% 1,000 ML IV SCH ×2 (19:13→21:44)
[2023-06-30 19:27] LABS: Basophils # (auto) 0.07 K/uL (0.00-0.20); Basophils % (auto) 0.3 %; Hematocrit (blood only) 41.7 % (37.0-47.0); Hemoglobin 13.4 g/dl (12.0-16.0); Immature Granulocytes # (auto) 0.56 K/uL (0.01-0.20); Immature Granulocytes % (auto) 2.5 %; Lymphocytes # (auto) 2.39 K/uL (1.20-3.40); Lymphocytes % (auto) 10.7 %; Mean Corpuscular Hemoglobin 30.7 pg (25.0-34.0); Mean Corpuscular Hgb Conc 32.1 g/dL (32.0-36.0); Mean Corpuscular Volume 95.4 fL (80.0-100.0); Mean Platelet Volume 9.9 fL (9.4-12.4); Monocytes % (auto) 5.4 %; Neutrophils # (auto) 18.05 K/uL (1.40-6.50); Neutrophils % (auto) 81.1 %; Platelet Count 228 K/uL (130-400); RDW Coefficient of Variation 13.4 % (11.5-14.5); RDW Standard Deviation 47.2 fL (36.4-46.3); Red Blood Count 4.37 M/uL (4.20-5.40); White Blood Count 22.27 K/ul (4.8-10.8)
[2023-06-30 19:46] LABS: Troponin I High Sensitivity 9.5 pg/ml (0-14)
[2023-06-30 20:10] LABS: INR 1.3 (0.9-1.1); Partial Thromboplastin Ratio 1.1; Partial Thromboplastin Time 31 Seconds (21-31); Prothrombin Time 13.6 Seconds (9.0-12.0)
--- NOTE | 2023-06-30 20:11 | CT Scan Report ---
Exam(s): CT HEAD Without Contrast EXAM: CT Head Without Intravenous Contrast CLINICAL HISTORY: Reason for exam: head/neck pain, n/v. TECHNIQUE: Axial computed tomography images of the head/brain without intravenous contrast. CTDI is 36.18 mGy and DLP is 624.41 mGy-cm. Automated exposure control was utilized for the study. A dose lowering technique was utilized adhering to the principles of ALARA. COMPARISON: No relevant prior studies available. FINDINGS: No acute intracranial hemorrhage. No midline shift or mass effect. The territorial centeno-white matter differentiation is maintained throughout. Age-related cerebral volume loss. Periventricular and subcortical white matter hypoattenuation, consistent with chronic microangiopathy. The visualized orbits appear grossly unremarkable. The calvarium is intact. The visualized paranasal sinuses and mastoid air cells are grossly clear. IMPRESSION: No acute intracranial hemorrhage, midline shift, or mass effect. Electronically signed by: Jeffy Manjarrez MD 06/30/23 20:09 PM
--- NOTE | 2023-06-30 20:12 | CT Scan Report ---
Exam(s): CT C SPINE EXAM: CT Cervical Spine Without Intravenous Contrast CLINICAL HISTORY: Reason for exam: head/neck pain, n/v. TECHNIQUE: Axial computed tomography images of the cervical spine without intravenous contrast. CTDI is 36.18 mGy and DLP is 312.2 mGy-cm. Automated exposure control was utilized for the study. A dose lowering technique was utilized adhering to the principles of ALARA. COMPARISON: No relevant prior studies available. FINDINGS: The vertebral body heights are maintained. The craniocervical junction is intact. The atlanto-dens interval is maintained. The dens is intact. There is no spondylolisthesis. Multilevel cervical spondylosis and degenerative disc disease. Straightening of the cervical lordosis. The unenhanced neck soft tissues are grossly unremarkable. The visualized lung apices are grossly clear. IMPRESSION: No acute fracture or subluxation of the cervical spine. Electronically signed by: Jeffy Manjarrez MD 06/30/23 20:11 PM
[2023-06-30 20:13] LABS: Albumin Level 3.8 gm/dl (3.4-5.0); Anion Gap 13 (3-11); Bilirubin,Total 0.7 mg/dl (0.2-1.0); Calcium 8.9 mg/dl (8.6-10.3); Carbon Dioxide 25 mmol/L (21-32); Chloride 97 mmol/L (98-107); Sodium 135 mmol/L (136-145)
[2023-06-30 20:19] LABS: Alanine Aminotransferase 16 U/L (7-52); Albumin Globulin Ratio 1.1 (0.9-2); Alkaline Phosphatase 66 U/L (34-104); Aspartate Aminotransferase 18 U/L (13-39); BUN Creatinine Ratio 18.5 (10-20); Blood Urea Nitrogen 20 mg/dl (6-23); Est GFR (African American) 59.8 ml/min; Est GFR (Non-African American) 51.6 ml/min; Globulin 3.4 gm/dl (2.5-4.0); Glucose 172 mg/dl (70-99(Fasting)); Total Protein 7.2 gm/dl (6.0-8.3)
[2023-06-30] MEDS: PROCHLORPERAZINE 1 ML IV ONE (21:42)
[2023-06-30] MEDS: ACETAMINOPHEN 1,000 MG/100 ML VIAL IV STA (21:43)
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
[2023-06-30] MEDS: MAGNESIUM SULFATE / D5W 1 GM/100 ML BAG IV SCH (22:20)
[2023-06-30] MEDS: CEFEPIME 2,000 MG/20 ML VIAL IV STA (22:32)
[2023-06-30 22:51] LABS: Adenovirus PCR Not Detected (NotDetected); Bordetella parapertussis PCR Not Detected (NotDetected); Bordetella pertussis PCR Not Detected (NotDetected); Chlamydia pneumoniae PCR Not Detected (NotDetected); Coronavirus 229E PCR Not Detected (NotDetected); Coronavirus CoV-2 (COVID19)PCR Not Detected (NotDetected); Coronavirus HKU1 PCR Not Detected (NotDetected); Coronavirus NL63 PCR Not Detected (NotDetected); Coronavirus OC43PCR Not Detected (NotDetected); Human Metapneumovirus PCR Not Detected (NotDetected); Influenza A PCR Not Detected (NotDetected); Influenza B PCR Not Detected (NotDetected); Mycoplasma pneumoniae PCR Not Detected (NotDetected); Parainfluenza Virus 1 PCR Not Detected (NotDetected); Parainfluenza Virus 2 PCR Not Detected (NotDetected); Parainfluenza Virus 3 PCR Not Detected (NotDetected); Parainfluenza Virus 4 PCR Not Detected (NotDetected); Respiratory Syncytial VirusPCR Not Detected (NotDetected); Rhinovirus/Enterovirus PCR Not Detected (NotDetected)
[2023-07-01] MEDS: MoRPHine SULFATE 4 MG/ML 1 ML CARP\\VIAL IV STA (00:10)
[2023-07-01] MEDS: OPTIRAY 320 500ml IV ONE (00:22)
[2023-07-01 01:01] LABS: Appearance Urine Clear (Clear); Bacteria Urine Automated 1+ (Negative); Bilirubin Urine Negative (Negative); Blood Urine Negative (Negative); Color Urine Yellow; Glucose Urine UA Negative (Negative); Ketones Urine Negative (Negative); Leukocyte Esterase Urine 2+ (Negative); Nitrite Urine Negative (Negative); Protein Urine Negative (Negative); RBC Urine Automated 0-4 /hpf (0-4); Specific Gravity Urine 1.023 (1.000-1.030); Urobilinogen Urine Negative (Negative)
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
[2023-07-01] MEDS ORDERED: GLUCAGON FOR INJ 1 MG VIAL SQ PRN (01:30)
[2023-07-01] MEDS ORDERED: GLUCOSE 10 TAB/TUBE PO PRN (01:30)
[2023-07-01] MEDS ORDERED: GLUCOSE 40% GEL 15 GM TUBE PO PRN (01:30)
[2023-07-01] MEDS ORDERED: VANCOMYCIN CONSULT ACTIVE PRN (01:30)
[2023-07-01] MEDS ORDERED: ALBUTEROL HFA 8 GM INHALER INH PRN (01:30)
[2023-07-01] MEDS ORDERED: DEXTROSE 50% 50 ML SYRINGE IV PRN (01:30)
[2023-07-01] MEDS ORDERED: CARBOHYDRATES FOR HYPOGLYCEMIA PO PRN (01:30)
[2023-07-01] MEDS ORDERED: ONDANSETRON INJ 2 MG/ML 2 ML VIAL IV PRN (01:30)
[2023-07-01] MEDS ORDERED: ALBUTEROL 0.083% NEBU SOLN 3 ML VIAL INH PRN (01:30)
--- NOTE | 2023-07-01 01:56 | CT Scan Report ---
Exam(s): CT ABDOMEN + PELVIS With Contrast IV Amt: 87 ML OPTIRAY 320 EXAM: CT Abdomen and Pelvis With Intravenous Contrast CLINICAL HISTORY: Reason for exam: n/v/d. TECHNIQUE: Axial computed tomography images of the abdomen and pelvis with intravenous contrast. Automated exposure control was utilized for the study. A dose lowering technique was utilized adhering to the principles of ALARA. CONTRAST: Patient received 87 ML OPTIRAY 320 of IV contrast COMPARISON: 10/04/2021. FINDINGS: Lung bases: Right middle lobe consolidation suggestive of small infiltrate. Bilateral lower lobe and lingular atelectasis. Heart: Mild cardiomegaly with coronary artery calcifications. ABDOMEN: Liver: Unremarkable. No mass. Gallbladder and bile ducts: Unremarkable. No calcified stones. No ductal dilation. Pancreas: Unremarkable. No mass. No ductal dilation. Spleen: Unremarkable. No splenomegaly. Adrenals: Unremarkable. No mass. Kidneys and ureters: Unremarkable. No solid mass. No hydronephrosis. Stomach and bowel: Nonspecific fecal debris within the colon. No obstruction. No mucosal thickening. PELVIS: Appendix: Distinct appendix not seen with surgical clips by the cecum suggestive of previous appendectomy. Bladder: Unremarkable. No mass. Reproductive: Anteverted uterus with atrophy. ABDOMEN and PELVIS: Intraperitoneal space: Unremarkable. No free air. No significant fluid collection. Bones/joints: There is advanced degenerative disease of the spine with scoliosis, convexity to the left. There is extensive posterior fusion from the lower thoracic spine into the L5. Diffuse osteopenia with degenerative disease of bilateral hips and SI joints . No acute fracture. No dislocation. Soft tissues: There is electronic pump within the subcutaneous soft tissues of the right lower abdomen. Vasculature: Unremarkable. No abdominal aortic aneurysm. Lymph nodes: Unremarkable. No enlarged lymph nodes. IMPRESSION: 1. Status post appendectomy with no signs of bowel obstruction or focal inflammatory process or other gastrointestinal tract. 2. Normal abdominal visceral . 3. Right middle lobe pneumonia with bilateral lower lobe ending her atelectasis. Electronically signed by: Mary Mccollum MD 07/01/23 01:56 AM
[2023-07-01] MEDS: VANCOMYCIN HCL 2,000 MG in SODIUM CHLORIDE 0.9% 500 ML IV STA (02:22)
--- OUTSIDE RECORDS SUMMARY | 2023-07-01 02:33 | External Medical Summary | Summary of Care ---
Author Name Unknown Organization [facility] Address [address] [place] [address] Phone [phone] Care Team Providers Care Turning Machine Operator Name Role Phone Elda Ng SUMMER Primary Care Provider Reason for Visit * Reason Comments Follow Up Encounter Details Date Type Department Care Team ([facility] Contact Info) Description 06/20/2023 10:00 AM EST Telemedicine Neuropsychology [facility] [address] [place] [address] Mannie Morillo, PhD [address] [place] [address] STEPHEN (generalized anxiety disorder)*; Major depressive disorder, recurrent episode, mild (HCC); Mild cognitive impairment; Sleep disturbance; Chronic back pain greater than 3 months duration; Relational problem Allergies Active Allergy Reactions Criticality Noted Date Comments Cefuroxime Nausea/vomiting 01/30/2021 documented as of this encounter (statuses as of 06/20/2023) Medications Medication Sig Dispensed Refills Start Date End Date Status ONE TOUCH ULTRA DEVIIndications:DM type 2, goal A1c below 7 test bid 1 0 02/20/2007 Active Additional Information Patient not taking.Reported on 01/30/2021 ONE TOUCH ULTRA CONTROL SOLNIndications:DM type 2, goal A1c below 7 test bid 1 bottle 11 02/20/2007 Active Additional Information Patient not taking.Reported on 01/30/2021 ONETOUCH ULTRASOFT LANCETS MISCIndications:DM type 2, goal A1c below 7 test bid 3 boxes 3 12/11/2007 Active Additional Information Patient not taking.Reported on 01/30/2021 INDOMETHACIN 50 MG PO CAPSIndications:Gout One pill by mouth 3 times a day with food as needed for pain 90 Cap 1 05/15/2010 Active Additional Information Patient not taking.Reported on 01/30/2021 ONETOUCH ULTRA BLUE STRPIndications:DM type 2, goal A1c below 7 test twice daily 3 Box 3 04/02/2011 Active Additional Information Patient not taking.Reported on 01/30/2021 CRESTOR 40 MG PO TABSIndications:DM type 2, goal A1c below 7,Dyslipidemia, goal to be determined One pill by mouth once a day 90 Tab 3 04/02/2011 Active Additional Information Patient not taking.Reported on 01/30/2021 IBUPROFEN 600 MG PO TABSIndications:Restle ss leg syndrome One pill by mouth 3 times a day with food for pain 180 Tab 3 07/16/2011 Active Additional Information Patient not taking.Reported on 12/10/2022 LOSARTAN POTASSIUM-HCTZ 100-25 MG PO TABSIndications:HTN, goal below 140/90 One pill by mouth once a day 90 Tab 3 10/21/2011 Active Additional Information Patient not taking.Reported on 12/10/2022 OMEPRAZOLE 20 MG PO CPDRIndications:Esopha geal reflux,Gastritis and gastroduodenitis TAKE 1 CAPSULE DAILY AT BEDTIME 90 Cap 3 03/16/2012 Active Additional Information Patient not taking.Reported on 01/30/2021 GLIMEPIRIDE 4 MG PO TABSIndications:DM type 2, goal A1c below 7 2 daily 180 Tab 3 03/17/2012 Active Additional Information Patient not taking.Reported on 12/10/2022 AMITRIPTYLINE HCL 50 MG PO TABSIndications:Dyspar eunia TAKE 2 TO 3 TABLETS AT NIGHT 270 Tab 3 03/30/2012 Active Additional Information Patient not taking.Reported on 01/30/2021 GABAPENTIN 300 MG PO CAPSIndications:Polyne uropathy in diabetes(357.2) Take 3 Capsules by mouth in the morning and 3 Capsules at noon and 3 Capsules before bedtime. 630 Cap 3 05/19/2012 Active MIRAPEX 1 MG PO TABSIndications:Restle ss leg syndrome 1 at 4Pmand one at bedtime daily 180 Tab 3 05/19/2012 Active Additional Information Patient not taking.Reported on 01/30/2021 LORAZEPAM 1 MG PO TABSIndications:Anxiet y state One pill by mouth 3 times a day as needed for anxiety 40 Tab 2 06/01/2012 Active Additional Information Patient not taking.Reported on 01/30/2021 OMEPRAZOLE 20 MG PO CPDRIndications:Esopha geal reflux,Gastritis and gastroduodenitis TAKE 1 CAPSULE AT BEDTIME 90 Cap 1 12/24/2012 Active Additional Information Patient not taking.Reported on 01/30/2021 oxyCODONE-Acetaminophe n 5-325 MG Oral Tablet (Percocet) Take 1 Tab by mouth 3 times a day. 0 Active Pramipexole Dihydrochloride 0.25 MG Oral Tablet (Mirapex) Take 1 Tablet by mouth in the morning and 1 Tablet before bedtime. 0 Active Pantoprazole Sodium 40 MG Oral Tablet Delayed Release (Protonix) Take 1 Tablet by mouth in the morning. 0 Active metFORMIN HCl 1000 MG Oral Tablet (Glucophage) Take 1 Tablet by mouth 2 times a day with morning and evening meals. 0 Active amLODIPine Besylate 5 MG Oral Tablet (Norvasc) Take 1 Tablet by mouth in the morning. 0 Active Atorvastatin Calcium 40 MG Oral Tablet (Lipitor) Take 1 Tablet by mouth in the morning. 0 Active glipiZIDE ER 2.5 MG Oral Tablet Extended Release 24 Hour (Glucotrol XL) Take 2.5 mg by mouth 2 times a day. 0 Active traZODone HCl 100 MG Oral Tablet (Desyrel) Take 1.5 Tablets by mouth at bedtime. 0 Active Aspirin 81 MG Oral Tablet Delayed Release Take 81 mg by mouth daily. 0 Active Multivitamin Women 50+ Oral Tablet Take by mouth daily. 0 Active Docusate Sodium 100 MG Oral Capsule Take 100 mg by mouth at bedtime. 0 Active DULoxetine HCl 60 MG Oral Capsule Delayed Release Particles (Cymbalta) Take 1 Capsule by mouth in the morning and 1 Capsule before bedtime. 0 Active Lubiprostone 24 MCG Oral Capsule (Amitiza) Take 1 Capsule by mouth 2 times a day with morning and evening meals. 0 Active glipiZIDE ER 2.5 MG Oral Tablet Extended Release 24 Hour (glipiZIDE XL) Take 1 Tablet by mouth in the morning. 0 Active documented as of this encounter (statuses as of 06/20/2023) Active Problems Problem Noted Date Diagnosed Date HTN, GOAL BELOW 140/80 01/20/2012 Overview: Per HTN Protocol #27. Family history of GI malignancy 07/10/2010 Severe obesity with body mas s index (BMI) of 35.0 to 39.9 with serious comorbidity 11/13/2009 Overview: Per Obesity Protocol, #19 ICD-10 update of inactive diagnosis Alopecia 07/08/2009 DYSLIPIDEMIA, GOAL LDL BELOW 100 05/22/2009 Overview: Per Lipid Taxonomy. Type 2 diabetes mellitus wit h hemoglobin A1c goal of less than 7.0% 03/30/2009 Overview: Per Diabetes Taxonomy. ICD-10 update of inactive term Diabetic polyneuropathy 05/21/2007 Overview: ICD-10 update of inactive term ADVANCE DIRECTIVE INFORMATION 09/18/2006 Overview: Information offered-patient declined EXTRAPYRAMIDAL DIS NEC 10/05/2001 Female genital symptoms 02/16/2001 Overview: ICD-10 update of inactive term GENERALIZED ANXIETY DIS 10/02/1999 Dyspareunia 10/02/1999 documented as of this encounter (statuses as of 06/20/2023) Resolved Problems Problem Noted Date Diagnosed Date Resolved Date Edema 07/08/2009 07/10/2010 HTN, GOAL BELOW 130/80 04/25/200901/22 Overview: Modified per HTN protocol #16. Type 2 diabetes mellitus wit h hemoglobin A1c goal of less than 7.0% 04/03/2005 03/30/2009 Overview: Per Diabetes Taxonomy. ICD-10 update of inactive term Dermatitis 11/26/2001 07/10/2010 HYPERTENSION NOS 11/26/2001 04/25/2009 Overview: Modified per HTN protocol #16. Dyslipidemia, goal to be determined 10/05/2001 05/22/2009 Overview: Per Lipid Taxonomy. Other chest pain 10/09/2000 07/10/2010 documented as of this encounter (statuses as of 06/20/2023) Immunizations Name Administration Dates Next Due Pneumococcal Polysaccharide PPV23 (Pneumovax) 10/09/2005 Seasonal Influenza, Split, I IV3, With Preserve, Inj 03/02/2012,04/09/2011,03/29/2010,03/10,03/31/2008,03/16/2007,04/10/2006 TDAP (age 11 and older)(Adacel) 11/16/2007 documented as of this encounter Social History Tobacco Use Types Packs/Day Years Used Date Smoking Tobacco: Never Smokeless Tobacco: Never Alcohol Use Standard Drinks/Week Comments No 0 (1 standard drink = 0.6 oz pur e alcohol) Sex and Gender Information Value Date Recorded Sex Assigned at Not on file Gender Identity Not on file Sexual Orientation Not on file Job Start Date Occupation Industry Not on file Not on file Not on file documented as of this encounter Progress Notes * Mannie Morillo, PhD - 06/20/2023 1:04 PM EST After connecting to the patient via telephone, the patient was identified by name and date of . Patient was then informed that this was a telephone call only visit. The patient agreed to participate. Visit Disposition: Routine follow-up Total call duration was 27 minutes. NEUROPSYCHOLOGY FEEDBACK NOTE Ms. Rosa Elizabeth presented for a neuropsychology feedback appointment to review the results, impressions, and recommendations of an evaluation that was conducted on . Patient reported that everything has been about the same since the initial evaluation. Mood is unchanged; no safety issues. Results, impressions, and recommendations were reviewed. Patient verbalized understanding and expressed appreciation. She is aware that I can be contacted with any additional questions. Patient was stable at the conclusion of the appointment. Summary and Conclusions: On formal neuropsychological testing, Ms. Elizabeth appeared to put forth adequate effort. Estimated general intellectual functioning was found to be in the low [id number] range, with low average single word reading ability. Attention/working memory were within normal limits. Information processing speed was within expectation. Fundamental language showed relatively weak confrontation picture naming, relatively weak phonemic verbal fluency, and reduced semantic verbal fluency. Verbal learning/memory demonstrated strong encoding, variable delayed recall (reduced for word list; normal for story), and good benefit from recognition cuing (for the word list). Nonverbal learning/memory was normal. Her memory pattern could be suggestive of some level of retrieval inefficiency. Visuospatial/constructional ability was within broad normal limits. Executive functioningwas largely within expectation, though perhaps very mild relative weakness was observed in generative thinking and novel problem solving. Pt screened positive for depression and anxiety. She denied functional declines related to cognitive issues at this point. Impression is one of mild cognitive impairment. 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 The pt denied any day-to-day functional decline; thus, a dementia diagnosis is precluded. Etiology of the pt's cognitive dysfunction is likely multifactorial. First and importantly, the pt hasa number of secondary factors that can result in cognitive impairment including very poor sleep (insomnia, untreated HERIBERTO), chronic physical pain, elevated anxiety/depression, relational/psychosocial stress, and medication side effects (has a permanent opioid pain pump); all of these factors are known to result in cognitive inefficiency. Next, the pt does have evidence of at least some degree of small vessel ischemic disease and chronic left frontal lobe infarcts on neuroimaging, and as such, a cerebrovascular contribution cannot be excluded; the weakness observed on neurocognitive testing could be consistent with a cerebrovascular etiology. Finally, at this juncture, the neurocognitive testresults are not overly suggestive of a neurodegenerative etiology, such as Alzheimer's disease; however, if pt continues to worsen after all modifiable factors are addressed, then this etiology can be reconsidered. See recommendations listed below. Diagnostic Impressions: Mild Cognitive Impairment Generalized Anxiety Disorder Major Depressive Disorder Relationship Stress Sleep Disturbance Chronic Pain Recommendations: Continue following with Neurology as appropriate. Good management of vascular risk factors to prevent development/progression of chronic cerebrovascular disease and to reduce stroke risk. Follow-up with Sleep Medicine to discuss management of HERIBERTO and insomnia. Continue with optimal pain management. Recommend treating any underlying depression, anxiety, and relational issues. Consider adjustment of psychotropic medication treatment. Strongly consider engaging in counseling/psychotherapy. Several recommendations for enhancing memory functioning include: Encoding of information into memory may be aided by repeated exposure and by breaking up large blocks of information into smaller, more manageable parts. External memory aids and reminders (i.e., checklists, daily planners, calendars, alarms) could be implemented and used regularly to aid in retrieval. Continue to be as physically, socially, and cognitively engaged/active as possible for overall health and well-being. Proper nutrition, stress reduction, and cultivating satisfying social interactions are encouraged and can help to enhance quality of life. Strongly recommend tracking cognitive functioning over time. Future neuropsychological evaluation is available as needed. Mannie Morillo, Ph.D., [facility] Neuropsychologist Service Time: 27 mins ([id number]) documented in this encounter Plan of Treatment Health Maintenance Due Date Last Done Comments Depression Screening 1962 Hepatitis C Screening 02/23/1970 Zoster Vaccines (1 of 2) 02/23/2002 COLONOSCOPY-EVERY 5 YRS AGES 18-100 11/15/2009 11/15/2004 Mammogram 12/07/2011 12/06/2010, 11/2008, 05/14/2007, Additional history exists Hepatitis B (1 of 3 - Risk 3-dose series) 2012 Albumin/Creatinine Ratio 04/02/2012 011, 12/01/2009, 11/02/2008, Additional history exists HbA1c 08/31/2012 03/02/2012, 11/01, 04/02/2011, Additional history exists GFR 11/27/2012 11/28/2011, 06/2010, 07/10/2010, Additional history exists Diabetic Eye Exam 12/31/2012 01/01/2012, , 12/01/2009, Additional history exists Diabetic Foot Exam 03/10/2013 03/10/2012, 1 , 06/07/2011, Additional history exists Lipid Panel 11/27/2016 11/28/2011, 06/2010, 08/17/2009, Additional history exists DTaP,Tdap,and Td Vaccines (2 - Td or Tdap) 11/15/2017 11/16/2007 DXA Scan 09/22/2019 09/21/2009, 11/10/2003 COVID-19 Vaccine ( season) 2023 07/27/2020, 07/06/2020 Influenza Vaccine (FLU shot) (#1) 2023 03/15/2019, 02/17/2018, 02/16/2013, Additional history exists Pneumococcal Vaccine: 65+ Years Completed 05/02/2020, 03/06/2015, 04/19/2013, Additional history exists GARDASIL-HPV IMMUNIZATION SERIES Aged Out No longer eligible based on patient's age to complete this topic MENINGOCOCCAL (MENACTRA/MENVEO) Aged Out No longer eligible based on patient's age to complete this topic documented as of this encounter Medical Devices Implanted Type Area Ux Design Lead Device Identifier Shelf Expiration Date Model / Serial / Lot Lens Intraoc 13.5 - [id number] - [id number] Implanted:Qty: 1 on 03/06/2021 by Josr Kumar MD at OR [facility] Left: Eye [employer] 10/30/2025 [id number] / [id number] / Lens Intraoc 17.5 - [id number] - [id number] Implanted:Qty: 1 on 03/15/2021 by Josr Kumar MD at OR [facility] Right: Eye [employer] 11/29/2025 [id number] / [id number] / [id number] documented as of this encounter Visit Diagnoses Diagnosis STEPHEN (generalized anxiety disorder)- Primary Generalized anxiety disorder Major depressive disorder, recurrent episode, mild (HCC) Major depressive disorder, recurrent episode, mild Mild cognitive impairment Mild cognitive impairment, so stated Sleep disturbance Sleep disturbance, unspecified Chronic back pain greater than 3 months duration Backache, unspecified Relational problem Interpersonal problem, not elsewhere classified documented in this encounter Care Teams Turning Machine Operator Relationship Specialty Start Date End Date Elda Ng CRNP [address] [place] [address] PCP - General Nurse Practitioner 12/02/14 documented as of this encounter
--- OUTSIDE RECORDS SUMMARY | 2023-07-01 02:34 | External Medical Summary | Summary of Care ---
Author Name Unknown Organization [facility] Address [address] [place] [address] Phone [phone] Care Team Providers Care Mechanical Systems Designer Name Role Phone Elda Ng SUMMER Primary Care Provider + [phone] Reason for Visit * Reason Comments Neuropsychological Evaluation * Evaluate & Treat - Unlimited Visits (Within 10 days (routine)) - Closed Specialty Diagnoses / Procedures Referred By Marlene zaman Referred To Contact Psychiatry / Psychology Diagnoses Diabetic polyneuropathy associated with diabetes mellitus due to underlying condition (HCC) Memory changes Ynes Loyd PA-C [address] [place] [address] Referral ID Status Reason Start Date Expiration Date V isits Requested Visits Authorized [id number] Closed Specialty Services Required 12/10/[phone] Encounter Details Date Type Department Care Team (Late st Contact Info) Description 06/06/2023 8:30 AM EST Therapy Neuropsychology [facility] [address] [place] [address] Mannie Morillo, PhD [address] [place] [address] Anxiety with depression*; Mild cognitive impairment; Chronic pain due to trauma; Obstructive sleep apnea Allergies Active Allergy Reactions Criticality Noted Date Comments Cefuroxime Nausea/vomiting 01/30/2021 documented as of this encounter (statuses as of 06/16/2023) Medications Medication Sig Dispensed Refills Start Date [...] as of this encounter (statuses as of 06/16/2023) Active Problems Problem Noted Date Diagnosed Date [...] as of this encounter (statuses as of 06/16/2023) Resolved Problems Problem Noted Date Diagnosed Date [...] as of this encounter (statuses as of 06/16/2023) Immunizations Name Administration Dates Next Due Pneumococcal [...] Progress Notes * Mannie Morillo, PhD - 06/06/2023 8:38 AM EST Images from the original note were not included. NEUROPSYCHOLOGY: REFERRAL AND INTAKE Patient Name: Rosa Elizabeth Date of : 1950 Age: 73 Education: 12 years Date of Evaluation: 06/06/2023 Identifying and Referral Information: Ms. Rosa Elizabeth was referred for a neuropsychological evaluation by Ynes Loyd PA-C of [facility] to assess current cognitive and behavioral/emotional functioning in thecontext of reported memory difficulty. We discussed what to expect during the neuropsychological evaluation process. I described limits ofconfidentiality. Pt provided informed consent to proceed with the evaluation. Background Information: Pt seen by Ynes Loyd PA-C on 12/10/2022: HPI & Source of HPI The patient was the historian, and she is reliable. She is here today for memory issues. She think they started about 6 months-1 year ago. She was helpwith a baby shower and her daughter was peeling potatoes and she then handed the potatoes to her and she couldn't remember what to do. It slowly came to her and she finished cutting up the potatoes. She had covid and fell and fractured her back. She was in an induced coma for 6 months, then had surgery and was sent to rehab. She still has a limp and walks with a came or a walker. She can follow [employer] and for the last 10 year her has paid the bills. She drives and has not gotten lost or had any accidents or near misses. 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 She has 1 daughter and 2 sons. She has an MRI in [place] [facility] that did show some chronic left frontal perventricular lacuar infarct and some mirco vascular changes. She has been a DM for 2013 and has polyneuropathy and takes gabapentin. No medications have been changes. She is a non smoker, no EtOH use, no other drugs, minimal caffeine use. Present Concerns: Pt is a 73-year-old, right-hand dominant, Danish-speaking, woman with 12 years of formaleducation. Pt was unaccompanied to the appt. Pt reported that cognitive issues began within the past 1.5-2 years. Issues came on gradually and have mildly worsened. She had an episode where she forgot how to make potato salad- a recipe she has made hundreds of times; eventually the recipe came back to her but this scared her. Pt also has a family history significant for dementia. Pt endorsed numerous cognitive complaints. Endorsed short-term memory issues: forgetting details ofconversations with friends/family, occasional repeating of self, increased misplacing/losing of items, no issues with prospective memory (however relies heavily on a calendar; feels like she would not remember details without this). Cues only help variably with recall. Denied becoming lost/disoriented in familiar places. Endorsed attention/concentration issues: had a difficult time describing herissues in this area. Endorsed slowed information processing speed: takes longer to retrieve information and to process information. Endorsed fundamental language concerns: word finding difficulty. Denied concerns with visuospatial/constructional ability. Denied executive functioning issues. Pt endorsed gait dysfunction and imbalance related to a serious back injury (fractured her back in 2019; was in a medically induced coma for 3 weeks; had a surgical repair and months of rehab). Has had a permanent pain pump for the past year (hydromorphone). Has reduced smell since COVID19 in 2019.Has chronic dysphagia; has had swallow studies reportedly with no substantial findings. Denied tremors, recurrent falls, and incontinence. Pt described recent mood as same as usual. She is generally in a good mood. Pt has occasionalinstances of low mood and anxiety but nothing chronic. She denied SI/HI, hallucinations, paranoia, delusions, thomas, apathy, and/or significant personality/behavioral changes (e.g., disinhibition, carol ppropriateness). Pt is currently prescribed and taking Cymbalta and amitriptyline (on these medications for pain management). Pt is not currently in counseling. Sleep is poor. No problems falling asleep. Has significant difficulty staying asleep. Achieves about only 3-4 hours of sleep per night before waking up. Then goes downstairs and watches tv and eats. Has been the case for many years. Has tried numerous medications for sleep. No daytime napping. Has been diagnosed with HERIBERTO but unable to tolerate CPAP. Has restless leg, on gabapentin (helpful). Energy is low. No exercise due to physical issues but would like to start exercising. Appetite is fine but diet is poor. Eat sweets chronically; has been the case for many years. Knows this is not good for her due to diabetes. Denied unusual food cravings/eating habits. Endorsed chronic pain related to back and joint issues, rated at a 5/10 average level; pain has been "cut in half" since pain pump. Denied any acute pain/discomfort today. Denied current ETOH use. Denied current tobacco use. Denied current recreational use of prescription/illict substances. Endorsed current caffeine intake: 1-2 cups of coffee per day; occasional soda. Pt is reportedly independent for all basic and instrumental ADLs. took over finances about 10 years ago; pt had an online gambling issue and was spending significant money; no longer an issuebut has maintained oversight of finances. 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 Driving is unremarkable- no concerns, recent accidents, tickets,or near-misses. Complications and Developmental Delays: Denied. Educational/Vocational History: Denied any history of learning disorders/difficulties. Denied academic retention. Graduated high school. No college of vocational schooling. 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 Retired in 2016. Service: Denied. Psychiatric History: Denied. Substance Use History: Denied. Social History: Born and raised in [place], [place]. Unremarkable upbringing, no abuse or neglect. Currently lives in [place], [place] at home with of 53 years. Only marriage. Has 3 adult children. Good family relationships. Social circles have diminished over the years but has good con nections with family (children, grandchildren, and sister). Legal Issues: Denied. Past Medical History (per medical record): Past Medical History: Diagnosis Date Depressive disorder, not elsewhere classified DM type 2, goal A1c below 7 2004 on diet and metformin Gout HTN, goal to be determined Metrorrhagia endo bx 1997 - focal polyp, sono hs 1998 neg Restless leg syndrome 2002 on mirapex Unspecified symptom associated with female genital organs vulvadynia - vestibulitis Patient Active Problem List Diagnosis Code GENERALIZED ANXIETY DIS F41.1 Dyspareunia [id number] Female genital symptoms N94.9 EXTRAPYRAMIDAL DIS NEC G25.89 ADVANCE DIRECTIVE INFORMATION Diabetic polyneuropathy (HCC) E11.42 Type 2 diabetes mellitus with hemoglobin A1c goal of less than 7.0% (HCC) E11.9 DYSLIPIDEMIA, GOAL LDL BELOW 100 E78.5 Alopecia L65.9 Severe obesity with body mass index (BMI) of 35.0 to 39.9 with serious comorbidity (HCC) E66.01 Family history of GI malignancy Z80.0 HTN, GOAL BELOW 140/80 I10 Denied any known history of TBI/concussion, TIA, stroke, and seizures. MRI of the brain conducted on 11/15/2022 showed (per radiology read): Current Outpatient Medications (per medical record): Current Outpatient Medications Medication Sig Dispense Refill ONE TOUCH ULTRA NIKIA test bid (Patient not taking: No sig reported) 1 0 ONE TOUCH ULTRA CONTROL SOLN test bid (Patient not taking: No sig reported) 1 bottle 11 ONETOUCH ULTRASOFT LANCETS MISC test bid (Patient not taking: No sig reported) 3 boxes 3 INDOMETHACIN 50 MG PO CAPS One pill by mouth 3 times a day with food as needed for pain (Patient not taking: No sig reported) 90 Cap 1 ONETOUCH ULTRA BLUE STRP test twice daily (Patient not taking: No sig reported) 3 Box 3 CRESTOR 40 MG PO TABS One pill by mouth once a day (Patient not taking: No sig reported) 90 Tab 3 IBUPROFEN 600 MG PO TABS One pill by mouth 3 times a day with food for pain (Patient not taking: Reported on 12/10/2022) 180 Tab 3 LOSARTAN POTASSIUM-HCTZ 100-25 MG PO TABS One pill by mouth once a day (Patient not taking: Reported on 12/10/2022) 90 Tab 3 OMEPRAZOLE 20 MG PO CPDR TAKE 1 CAPSULE DAILY AT BEDTIME (Patient not taking: No sig reported) 90 Cap 3 GLIMEPIRIDE 4 MG PO TABS 2 daily (Patient not taking: Reported on 12/10/2022) 180 Tab 3 AMITRIPTYLINE HCL 50 MG PO TABS TAKE 2 TO 3 TABLETS AT NIGHT (Patient not taking: No sig reported) 270 Tab 3 GABAPENTIN 300 MG PO CAPS Take 3 Capsules by mouth in the morning and 3 Capsules at noon and 3 Capsules before bedtime. 630 Cap 3 MIRAPEX 1 MG PO TABS 1 at 4Pmand one at bedtime daily (Patient not taking: No sig reported) 180 Tab3 LORAZEPAM 1 MG PO TABS One pill by mouth 3 times a day as needed for anxiety (Patient not taking: No sig reported) 40 Tab 2 OMEPRAZOLE 20 MG PO CPDR TAKE 1 CAPSULE AT BEDTIME (Patient not taking: No sig reported) 90 Cap 1 oxyCODONE-Acetaminophen 5-325 MG Oral Tablet (Percocet) Take 1 Tab by mouth 3 times a day. (Patientnot taking: Reported on 12/10/2022) Pramipexole Dihydrochloride 0.25 MG Oral Tablet (Mirapex) Take 1 Tablet by mouth in the morning and1 Tablet before bedtime. Pantoprazole Sodium 40 MG Oral Tablet Delayed Release (Protonix) Take 1 Tablet by mouth in the morning. metFORMIN HCl 1000 MG Oral Tablet (Glucophage) Take 1 Tablet by mouth 2 times a day with morning and evening meals. amLODIPine Besylate 5 MG Oral Tablet (Norvasc) Take 1 Tablet by mouth in the morning. Atorvastatin Calcium 40 MG Oral Tablet (Lipitor) Take 1 Tablet by mouth in the morning. glipiZIDE ER 2.5 MG Oral Tablet Extended Release 24 Hour (Glucotrol XL) Take 2.5 mg by mouth 2 times a day. traZODone HCl 100 MG Oral Tablet (Desyrel) Take 1.5 Tablets by mouth at bedtime. Aspirin 81 MG Oral Tablet Delayed Release Take 81 mg by mouth daily. Multivitamin Women 50+ Oral Tablet Take by mouth daily. Docusate Sodium 100 MG Oral Capsule Take 100 mg by mouth at bedtime. (Patient not taking: Reported on 12/10/2022) DULoxetine HCl 60 MG Oral Capsule Delayed Release Particles (Cymbalta) Take 1 Capsule by mouth in the morning and 1 Capsule before bedtime. Lubiprostone 24 MCG Oral Capsule (Amitiza) Take 1 Capsule by mouth 2 times a day with morning and evening meals. glipiZIDE ER 2.5 MG Oral Tablet Extended Release 24 Hour (glipiZIDE XL) Take 1 Tablet by mouth in the morning. No current facility-administered medications for this visit. Family History: Patient's mother at age 77 of an DE; also with a history of lung cancer. Patient's father at age 92/93 with a history of Parkinson's disease and ETOH use disorder (had formal treatment). Maternal grandmother, uncle, and aunt with dementia. Denied any known family history of psychiatric illness. Family History Problem Relation Age of Onset Cancer Daughter cervical age 26 Diabetes Brother Type I Heart Disorder Mother osteoporosis Cancer Mother lung Neurological Disorder Father Parkinson's Mental Status Evaluation/Behavioral Observations: Sensorium: Awake and alert to stimulus with no difficulty maintaining an appropriate level of arousal. Orientation: Oriented to person, place, time, date, and was aware of the current/most recent past [place] presidents. Appearance: Casually dressed and was appropriate to season and situation. No apparent distress. Grooming, Hygiene: Good. Behavior: Compliant and cooperative with the evaluation and testing procedures. Pleasant. Socially appropriate. Speech/language: Speech was WNL for rate, volume, and prosody. Receptive and expressive language was WNL. Gait/Posture: Ambulated independently. Gait and posture unremarkable on casual observation. Assistive Devices: Hearing and vision were adequate for purposes of testing. Mood: Described as same as usual. Affect: Euthymic. Broad in range. Congruent. Motor: No tremor noted. Normal facial expression. Thought process/Content/Hallucinations: Logical and linear. No unusual content noted. No hallucinations noted. Safety: Any safety issues, thoughts of harming self or others were denied. CSSRS was negative. Insight: Good. Procedures: Clinical Interview & Record Review; Wide Range Achievement Test - 4 (WRAT-4: Word Reading); Valdes Intellectual Screening Test (RIST); Neuropsychological Assessment Battery (NAB Form 1: Digits Forward/Backward, Dots, Naming); Repeatable Battery for the Assessment of Neuropsychological Status (RBANS A); Art Adult Intelligence Scale-IV (WAIS-IV: Symbol Search, Coding); [place] Making Test A & B; Controlled Oral Word Association Test (COWAT: FAS, Animal Naming); Modified [place] Card Sorting Task (MWCST); Clock Drawing; Geriatric Depression Scale-Short Form (GDS-SF); Generalized Anxiety Disorder-7 (STEPHEN-7); A Random Letter Test; The Rasheed 15 Item Test (Rasheed 15) Plan: Clinical interview and neuropsychological testing/evaluation completed. Interpretation of results and report of findings/impressions to follow after completion of feedback appointment. Feedbackappointment scheduled for 06/20/2023. Mannie Morillo, Ph.D., [facility] Neuropsychologist documented in this encounter Plan of Treatment Upcoming Encounters Date Type Department Care Team (Late st Contact Info) Description 06/20/2023 10:00 AM EST Therapy Neuropsychology [address] [place] [address] [place] [address] Mannie Morillo, PhD [address] [facility] [place] [address] Scheduled Referrals Name Type Priority Associated Diagnoses Orde r Schedule ADULT/PEDS NEUROPSYCHOLOGY REFERRAL OP Referral Within 10 days (routine) Diabetic polyneuropathy associated with diabetes mellitus due to underlying condition (HCC) Memory changes Ordered: 12/10/2022 Health Maintenance Due Date Last Done Comments [...] DXA Scan 09/22/2019 09/21/2009, 11/10/2003 COVID-19 Vaccine (3 - 2022- season) 2023 07/27/2020, 07/06/2020 Influenza Vaccine (FLU [...] this encounter Medical Devices Implanted Type Area Principal Consulting Engineer Device Identifier Shelf Expiration Date Model / Serial / Lot Lens Intraoc 13.5 - [id number] - [id number] Implanted:Qty: 1 on 03/06/2021 by Josr Kumar MD at [facility] Left: Eye BAUSCH & LOMB 10/30/2025 [id number] / [id number] / Lens Intraoc 17.5 - [id number] - [id number] Implanted:Qty: 1 on 03/15/2021 by Josr Kumar MD at OR [facility] Right: Eye BAUSCH & LOMB 11/29/2025 [id number] / [id number] / [id number] documented as of this encounter Visit Diagnoses Diagnosis Anxiety with depression- Primary Mild cognitive impairment Mild cognitive impairment, so stated Chronic pain due to trauma Obstructive sleep apnea Obstructive sleep apnea (adult) (pediatric) documented in this encounter Care Teams Mechanical Systems Designer Relationship Specialty Start Date End Date Elda Ng CRNP [address] [place] [address] PCP - General Nurse Practitioner 12/02/14 documented as of this encounter
--- OUTSIDE RECORDS SUMMARY | 2023-07-01 02:34 | External Medical Summary | Summary of Care ---
Author Name Unknown Organization [facility] Address [address] [place] [address] Phone [phone] Care Team Providers Care Water Main Installer Helper Name Role Phone Elda Ng SUMMER Primary Care Provider Encounter Details Date Type Department Care Team ([facility] st Contact Info) Description 06/06/2023 Documentation Neuropsychology [address] [place] [address] [facility] [place] [address] Mannie Morillo, PhD [address] [place] [address] Allergies Active Allergy Reactions Criticality Noted Date [...] Notes * Mannie Morillo, PhD - 06/20/2023 12:33 PM EST NEUROPSYCHOLOGY: SCORE SUMMARY SHEET Name: Rosa Elizabeth Age: 73 Education: 12 years Date of Evaluation: 06/06/2023 DEPARTMENT OF PSYCHIATRY NEUROPSYCHOLOGICAL TEST RESULTS IQ, Index, and Standard Scores (SS): Mean = 100; Standard Deviation = 15 Scaled Scores: Mean = 10; Standard Deviation = 3 Z scores (z): Mean = 0; Standard Deviation = 1 T scores (T); Mean = 50; Standard Deviation = 10 Repeatable Battery for the Assessment of Neuropsychological Status (Form A) Raw Standardized Scores Immediate Memory Index = 100 List Learning 29 (6,7,7,9) ss = 12 Story Memory 14 ss = 8 Visuospatial/Constructional Index = 81 Figure Copy 16 ss = 7 Line Orientation 14 17-25cumul % Language Functioning Index = 68 Picture Naming 8 3-9cumul % Semantic Fluency 10 ss = 4 Attention Index = 94 Digit Span 11 ss = 11 Coding 31 ss = 7 Delayed Memory Index = 95 List Recall 1 3-9cumul % List Recognition 19 26-50cumul % Story Recall 8 ss = 9 Figure Recall 9 ss = 8 Total Scale Index = 83 GENERAL INTELLECTUAL FUNCTIONING/ACHIEVEMENT Wide Range Achievement Test - 4TH Edition (WRAT-4) Word Reading Standard Score = 87; Grade Equivalent = 8.6 Valdes Intellectual Screening Test (RIST) Guess What: T = 35 Odd-Item Out: T = 48 Index = 88 (82-95, 95% Confidence Interval) ATTENTION/PROCESSING SPEED Neuropsychological Assessment Battery (NAB Form 1) Attention Module Digits Forward: T = 46 Digits Backward: T = 51 Dots: T = 45 [place] Making Test [place] A: T = 64 (0 errors) Art Adult Intelligence Scale-IV (WAIS-IV) Processing Speed Index = 92 (84-101, 95% Confidence Interval) Symbol Search: ss = 7 Coding: ss = 10 LANGUAGE Neuropsychological Assessment Battery (NAB Form 1) Language Module Naming: T = 38 (raw = 27/31) Controlled Oral Word Association Test FAS: T = 37 Animals: T = 34 EXECUTIVE FUNCTIONS [place] Making Test [place] B: T = 52 (1 error) Controlled Oral Word Association Test FAS: T = 37 Animals: T = 34 Modified [place] Card Sorting Test Number of Categories Correct: T = 40 (raw = 4) Number of Perseverative Errors: T = 44 Number of Total Errors: T = 44 Percent of Perseverative Errors: T = 54 Executive Function Composite: SS = 87 Clock Drawing Test: 01/09 PERFORMANCE VALIDITY The Rasheed 15 Item Test: Recall raw = 12/15 The A Random Letter Test: Total Errors = 1 EMOTIONAL/BEHAVIOR RATING SCALES GDS-SF: raw = 8 STEPHEN-7: raw = 14 Mannie Morillo, Ph.D., [facility] Neuropsychologist documented in this encounter Plan of [...] 04/02/2011, Additional history exists GFR 11/27/2012 11/28/2011, 11/0 06/2010, 07/10/2010, Additional history exists Diabetic Eye Exam 12/31/2012 01/01/2012, , 12/01/2009, Additional history exists Diabetic Foot Exam 03/10/2013 03/10/2012, 1 , 06/07/2011, Additional history exists Lipid Panel 11/27/2016 11/28/2011, 11/0 06/2010, 08/17/2009, Additional history exists DTaP,Tdap,and Td Vaccines (2 - Td or Tdap) 11/15/2017 11/16/2007 DXA Scan 09/22/2019 09/21/2009, 11/10/2003 COVID-19 Vaccine ( - season) 2023 07/27/2020, 07/06/2020 Influenza Vaccine (FLU [...] this encounter Medical Devices Implanted Type Area Mental Measurements Teacher Device Identifier Shelf Expiration Date Model / Serial / Lot Lens Intraoc 13.5 - [id number] - [id number] Implanted:Qty: 1 on 03/06/2021 by Josr Kumar MD at [facility] Left: Eye BAUSCH & LOMB 10/30/2025 [id number] / [id number] / Lens Intraoc 17.5 - [id number] - [id number] Implanted:Qty: 1 on 03/15/2021 by Josr Kumar MD at OR [facility] Right: Eye BAUSCH & LOMB 11/29/2025 [id number] / [id number] / [id number] documented as of this encounter Care Teams Water Main Installer Helper Relationship Specialty Start Date End Date Elda gN CRNP [address] [place] [address] PCP - General Nurse Practitioner 12/02/14 documented as of this encounter
--- OUTSIDE RECORDS SUMMARY | 2023-07-01 02:34 | External Medical Summary | Summary of Care ---
Author Name Unknown Organization [facility] Address [address] [place] [address] Phone [phone] Care Team Providers Care Risk And Insurance Consultant Name Role Phone Elda Ng SUMMER Primary Care Provider + [phone] Reason for Visit * Reason Comments Neuropsychological Evaluation * Evaluate & Treat - Unlimited Visits (Within 10 days (routine)) - Closed Specialty Diagnoses / Procedures Referred By Marlene zaman Referred To Contact Psychiatry / Psychology Diagnoses Diabetic polyneuropathy associated with diabetes mellitus due to underlying condition (HCC) Memory changes Ynes Loyd PA-C [address] [place] [address] Referral ID Status Reason Start Date Expiration Date V isits Requested Visits Authorized [id number] Closed Specialty Services Required 12/10/[phone] Encounter Details Date Type Department Care Team (Late st Contact Info) Description 06/06/2023 8:30 AM EST Therapy Neuropsychology [facility]er [address] [place] [address] Mannie Morillo, PhD [address] [place] [id number] Anxiety with depression*; Mild cognitive impairment; Chronic [...] Split, I IV3, With Preserve, Inj 03/02/2012,04/09/2011,03/29/2010,03/10,03/31/2008,03/16/2007,04/10/2006 ,03/28/2005,03/23/2002,05/05/2001 TDAP (age 11 and older)(Adacel) 11/16/2007 documented [...] Notes * Mannie Morillo, PhD - 06/20/2023 12:32 PM EST NEUROPSYCHOLOGY: RESULTS, IMPRESSIONS, AND RECOMMENDATIONS Patient Name: Rosa Elizabeth Date of : 1950 Age: 73 Education: 12 years Date of Evaluation: 06/06/2023 Procedures: Clinical Interview & Record Review; Valdes Intellectual Screening Test (RIST); Wide Range Achievement Test - 4 (WRAT-4: Word Reading); Repeatable Battery for the Assessment of Neuropsychological Status (RBANS A); Neuropsychological Assessment Battery (Form 1: Digits Forward/Backward, Dots, Naming); Art Adult Intelligence Scale-IV (WAIS-IV: Symbol Search, Coding); Austin Making Test A & B; Controlled Oral Word Association Test (COWAT: FAS, Animal Naming); Modified [place] Card Sorting Test (MWCST); Clock Drawing Test; A Random Letter Test; The Rasheed 15 Item Test(Rasheed 15); Geriatric Depression Scale-Short Form (GDS-SF); Generalized Anxiety Disorder-7 (STEPHEN-7) Findings: Test scores are summarized in additional documentation associated with this encounter. Test scores and associated descriptive qualifiers are relative to age, gender and/or education as available and appropriate. It is not necessarily abnormal to have some low scores in the context of multiple measurements. General intellectual functioning was estimated to be in the low [id number] range; a generalfund of knowledge task was below average, and a nonverbal reasoning task was average. Single word reading was low average. RBANS Attention: The Attention Index score was average. Digit span forward was average. A psychomotor symbol-number association task was low average. RBANS Visuospatial: The Visuospatial Index score was low average. A figure copy task integrating different details and elements was low average, characterized by several slight inaccuracies and one missing element; gestalt was intact. Visual analysis and judgment of angular line orientations was low average. RBANS Language: The Language Index score was exceptionally low. Semantic fluency (for fruits and vegetables) was below average, and confrontation picture naming was below average. RBANS Immediate Memory: The Immediate Memory Index score was average. List learning over four trials (6, 7, 7, 9) was high average, and learning a narrated short story across two trials was average. RBANS Delayed Memory: The Delayed Memory Index score was average. She recalled 1/10 words from the word list at delayed recall which is below average. Yes/no recognition of words on the word list versus foils was average (19/20). Delayed story recall was average. Delayed recall for a visuospatial figure copied earlier (as described above) was average. RBANS Total: The RBANS Total Scale score was low average. Tasks additional to the RBANS were also administered. Timed oral production of words based on letter priming was low average, and timed oral production of words based on a semantic category (animals)was below average. Digit repetition forward was average. Digit repetition backward was average. A visuospatial attention test involving changes to dot patterns was average. A more thorough confrontation naming task was low average (raw = 27/31; 31/31 with cues). A timed psychomotor task of visual matching and cognitive efficiency was low average. Timed number-symbol coding, an indicator of graphomotor speed and selective attention/association learning, was average. The processing speed index from the WAIS-IV was average. Clock drawing was largely WNL. A timed paper/pencil task requiring the rapid sequencing of numbers in ascending order was above average (with 0 errors), and a timed paper/pencil test requiring the rapid sequencing of numbers and letters was average (with 1 error). A novel problem-solving/response to feedback card sorting task was low average, characterized by the completion of 4/6 correct categories, with a normal number of errors made. Indicators of performance validity were within expectation. The pt screened positive for clinically elevated symptoms of depression and anxiety (moderate) on self-report rating forms assessing emotional functioning. Summary and Conclusions: On formal neuropsychological testing, Ms. Elizabeth appeared to put forth adequate effort. Estimated general intellectual functioning was found to be in the low [id number]-[id number] range, with low average single word reading [...] Future neuropsychological evaluation is available as needed. Thank you for involving me in Ms. Elizabeth' care. Do not hesitate to contact me should you have any questions regarding the findings and recommendations presented in this report. Mannie Morillo, Ph.D., [facility] Neuropsychologist Service Time: [id number] x 60 mins [phone] x 180 mins 34869 x 30 mins [phone] x 150 mins * Mannie Morillo, PhD - 06/06/2023 8:38 AM EST Images from the original note were not included. NEUROPSYCHOLOGY: REFERRAL AND INTAKE Patient Name: Rosa Elizabeth Date of : 1950 Age: 73 Education: 12 years Date of Evaluation: 06/06/2023 Identifying and Referral Information: Ms. Rosa Elizabeth was referred for a neuropsychological evaluation by Ynes Loyd PA-C of [facility] to assess current cognitive and behavioral/emotional [...] came or a walker. She can follow [facility] and for the last 10 year her has paid the bills. She drives and has not gotten lost or had any accidents or near misses. 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 She has 1 daughter and 2 sons. She has an MRI in [facility] that did show some chronic left frontal perventricular lacuar infarct and some mirco vascular changes. She has been a DM for 2013 and has polyneuropathy and takes gabapentin. No medications have been changes. She is a non smoker, no EtOH use, no other drugs, minimal caffeine use. Present Concerns: Pt is a 73-year-old, right-hand dominant, Wolof-speaking, woman with 12 years of formaleducation. 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 Driving is unremarkable- no concerns, recent accidents, tickets,or near-misses. Complications and Developmental Delays: Denied. Educational/Vocational History: Denied any history of learning disorders/difficulties. Denied academic retention. Graduated high school. No college of vocational schooling. 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 Retired in 2016. Service: Denied. Psychiatric History: Denied. Substance Use History: Denied. Social History: Born and raised in [place], [place]. Unremarkable upbringing, no abuse or neglect. Currently lives in [place], [place] at home with of 53 years. [...] Diagnosis Code GENERALIZED ANXIETY DIS F41.1 Dyspareunia [id number] Female genital symptoms N94.9 EXTRAPYRAMIDAL DIS NEC G25.89 ADVANCE DIRECTIVE INFORMATION Diabetic polyneuropathy (HCC) E11.42 Type 2 diabetes mellitus with hemoglobin A1c goal of less than 7.0% ([facility]) E11.9 DYSLIPIDEMIA, GOAL LDL BELOW 100 E78.5 Alopecia L65.9 Severe obesity with body mass index (BMI) of 35.0 to 39.9 with serious comorbidity ([facility]) E66.01 Family history of GI malignancy Z80.0 [...] Patient's mother at age 77 of an AR; also with a history of lung cancer. [...] Adult Intelligence Scale-IV (WAIS-IV: Symbol Search, Coding); Austin Making Test A & B; Controlled Oral [...] feedback appointment. Feedbackappointment scheduled for 06/20/2023. Mannie S. Junod, Ph.D., ABN Neuropsychologist documented in this encounter Plan of Treatment Scheduled Referrals Name Type Priority Associated Diagnoses [...] Additional history exists Lipid Panel 11/27/2016 11/28/2011, 1106/2010, 08/17/2009, Additional history exists DTaP,Tdap,and Td Vaccines (2 - Td or Tdap) 11/15/2017 11/16/2007 DXA Scan 09/22/2019 09/21/2009, 11/10/2003 COVID-19 Vaccine (3 - season) 2023 07/27/2020, 07/06/2020 Influenza Vaccine [...] this encounter Medical Devices Implanted Type Area Federal Agent Device Identifier Shelf Expiration Date Model / Serial / Lot Lens Intraoc 13.5 - [id number] - [id number] Implanted:Qty: 1 on 03/06/2021 by Josr Kumar MD at [facility] Left: Eye BAUSCH & LOMB 10/30/2025 [id number] / [id number] / Lens Intraoc 17.5 - [id number] - [id number] Implanted:Qty: 1 on 03/15/2021 by Josr Kumar MD at [facility] Right: Eye BAUSCH [employer] LOMB 11/29/2025 [id number] / [id number] / [id number] documented as of this encounter Visit Diagnoses Diagnosis Anxiety with depression- Primary Mild cognitive impairment Mild cognitive impairment, so stated Chronic pain due to trauma Obstructive sleep apnea Obstructive sleep apnea (adult) (pediatric) documented in this encounter Care Teams Risk And Insurance Consultant Relationship Specialty Start Date End Date Elda Ng CRNP [address] [place] [address] PCP - General Nurse Practitioner 12/02/14 documented as of this encounter
--- OUTSIDE RECORDS SUMMARY | 2023-07-01 02:34 | External Medical Summary | Continuity of Care Document ---
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 Name Role Phone Tremayne Tsering Primary Care Physician [phone] [id number] Date(s): 06/05/23 - 06/05/[address] [phone] Encounter Diagnosis Functional fecal incontinence(Discharge Diagnosis) - 06/05/23 Chronic, continuous use of opioids(Discharge Diagnosis) - 06/05/23 Discharge Disposition: Home or Self Care Attending Physician: ANA MARIA Wolf Kelli Jo Referring Physician: SUMMER Vargas Janet Griffith Allergies, Adverse Reactions, Alerts Substance Reaction Severity Status Ceftin vomited with the 500mg dose Active Assessment and Plan Extracted from: Title:Office Visit Note Author:ANA MARIA Wolf Kell i Jo Date:06/05/23 1.Functional fecal inconti nence The patient is a pleasant 73-year-old female who presents in the office today for evaluation of fecal incontinence. She has history of extensive surgical procedure history at [facility] in [place] with fusion from T8-L1 June 2020 as well as prior history of an L2-5 fusion. 1. Fecal incontinence: -Continue currentdosing; may increaseto additional twice daily daysif constipation worsens. -Discussed with patientfiber Gummies to increase compliance. Provided her with patient education handoutregardingfiber. Fecal incontinence has been ongoing nowfor 2+ yearsranging from daily to weekly Patient discontinued use of Dulcolax twice daily and stool softener/She is intolerant of MiraLAX Per prior note due to chronic opioiduse, started Amitiza 24 mcg po BID but patient struggled with twice daily use of Amitiza. Wilma Vargas DNP previously discussed that patient would be a good candidate for sacral nerve stimulatorwith our colorectal team. She deferred consult as she has had significant improvement in fecal incontinence with use of Amitiza. Completed pelvic floor/biofeedbackphysical therapy 2. CRCscreening: Most recent colonoscopy11/2017 with repeat recommended in 10 years Patientwould like to defer colonoscopy at this time GI follow up in12 months, sooner if needed. I have spent21 minutes in evaluation, education and documentation of this pt in both face to face and non-face to face activities. Immunizations Given and Recorded Vaccine Date Status Refusal Reason influenza virus vaccine, inactivated 02/22/22 Give n influenza virus vaccine, inactivated 02/26/21 Give n influenza virus vaccine, inactivated 02/25/20 Give n influenza virus vaccine, inactivated 03/15/19 Give n influenza virus vaccine, inactivated 02/17/18 Give n influenza virus vaccine, inactivated 02/11/17 Give n influenza virus vaccine, inactivated 03/07/16 Give n influenza virus vaccine, inactivated 02/09/15 Give n influenza virus vaccine, inactivated 03/04/14 Give n influenza virus vaccine, inactivated 02/16/13 Give n influenza virus vaccine, inactivated 03/02/12 Cade rded SARS-CoV-2 (COVID-19) mRNA BNT-162b2 vax 1 07/27/20 Recorded SARS-CoV-2 (COVID-19) mRNA BNT-162b2 vax 2 07/06/20 Recorded pneumococcal 23-valent vaccine 3 05/02/20 Recorded pneumococcal 23-valent vaccine 04/19/13 Given pneumococcal 23-valent vaccine 4 10/09/05 Recorded pneumococcal 13-valent vaccine 03/06/15 Given tetanus/diphtheria/pertuss, acel (Tdap) 11/16/07 R ecorded 1Result Comment: 2020-11-17: Historical information-source unspecified 2Result Comment: 2020-11-17: Historical information-source unspecified 3Result Comment: 2020-11-17: Historical information-source unspecified 4Result Comment: 2020-11-17: Historical information-source unspecified Medications Albuterol (Eqv-ProAir HFA) 90 mcg/inh inhalation aerosol Start: 03/27/23 13:28:00 EDT, 2 puff, inhaled, q6h, Disp# 18 g, Pharmacy: [id number] Start Date: 03/27/23 Stop Date: 04/26/23 Status: Ordered albuterol 0.083% for nebulization Start: 05/27/22 12:15:00 EST, 3 mL, inhaled, q6h, Disp# 25 each, Refills: 3, PRN: as needed for wheezing, Pharmacy: [id number] Start Date: 05/27/22 Stop Date: 09/24/22 Status: Ordered Amitiza 24 mcg oral capsule Start: 06/05/23 8:58:00 EST, 1 cap, PO, bid, Disp# 180 cap, Refills: 3, Pharmacy: [id number] Start Date: 06/05/23 Stop Date: 05/30/24 Status: Ordered amLODIPine 5 mg oral tablet Start: 09/18/22 8:11:00 EDT, See Instructions, Disp# 90 tab, Refills: 3, TAKE 1 TABLET BY MOUTH DAILY, Pharmacy: [facility] ([facility] Start Date: 09/18/22 Status: Ordered atorvastatin 40 mg oral tablet Start: 05/27/22 13:11:00 EST, See Instructions, Disp# 90 tab, Refills: 3, TAKE 1 TABLET BY MOUTH DAILY, Pharmacy: [facility] ([facility]) Start Date: 05/27/22 Status: Ordered Cymbalta 60 mg oral delayed release capsule Start: 01/27/23 15:05:00 EDT, 1 cap, PO, bid, Disp# 180 cap, Refills: 3, Pharmacy: [id number] Start Date: 01/27/23 Status: Ordered gabapentin 300 mg oral capsule Start: 03/10/23 10:30:00 EDT, See Instructions, Disp# 810 cap, Refills: 0, TAKE 3 CAPSULES BY MOUTHIN THE MORNING, THEN TAKE 3 CAPSULES IN THE AFTERNOON, THEN TAKE 3 CAPSULES AT BEDTIME., Pharmacy: [id number] Start Date: 03/10/23 Status: Ordered glipiZIDE 2.5 mg oral tablet, extended release Start: 09/13/22 14:59:00 EDT, 1 tab, PO, bid, Disp# 180 tab, Refills: 3, Pharmacy: [id number] Start Date: 09/13/22 Status: Ordered losartan 50 mg oral tablet Start: 04/18/23 13:15:00 EST, 1 tab, PO, Daily, Disp# 90 tab, Refills: 1, Pharmacy: [id number] Start Date: 04/18/23 Stop Date: 10/15/23 Status: Ordered metFORMIN 1000 mg oral tablet Start: 10/16/22 16:10:00 EDT, See Instructions, Disp# 90 tab, Refills: 3, TAKE 1 TABLET BY MOUTH TWICE DAILY, [facility] Start Date: 10/16/22 Status: Ordered One Touch Ultra 2 Glucose Monitor Start: 06/24/22 12:36:00 EST, See Instructions, Disp# 1 each, Refills: 0, Check blood sugar once daily, Note to Pharmacy: E11.43, E08.649, Pharmacy: [id number] Start Date: 06/24/22 Status: Ordered One Touch Ultra Test Strips 100 ct Start: 02/29/20 21:16:00 EDT, See Instructions, Disp# 100 each, Refills: 3, test blood sugars bid, diagnosis: E11.43, Pharmacy: [id number] Start Date: 02/29/20 Status: Ordered One Touch Ultrasoft (28G) Lancets Start: 02/29/20 21:16:00 EDT, See Instructions, Disp# 100 each, Refills: 3, test blood sugars bid, diagnosis: E11.43, Pharmacy: [id number] Start Date: 02/29/20 Status: Ordered Ozempic (0.25 mg or 0.5 mg dose) 2 mg/3 mL subQ pen Start: 04/29/23 9:17:00 EST, 0.25 mg, subQ, q7days, Disp# 4 each, Refills: 1, Pharmacy: [id number], Supply Start Date: 04/29/23 Stop Date: 06/24/23 Status: Ordered pantoprazole 40 mg oral delayed release tablet Start: 05/29/23 14:09:00 EST, See Instructions, Disp# 90 tab, Refills: 2, TAKE 1 TABLET BY MOUTH ONCE DAILY, Pharmacy: [id number] Start Date: 05/29/23 Status: Ordered pramipexole 0.25 mg oral tablet Start: 01/27/23 15:05:00 EDT, 1 tab, PO, tid, Disp# 270 tab, Refills: 3, Pharmacy: [id number] Start Date: 01/27/23 Status: Ordered triamcinolone 0.1% topical cream Start: 05/06/23 7:57:00 EST, 1 appl, topical, bid, Disp# 454 g, Refills: 0, Stop when dermatitis clears, Pharmacy: [id number] Start Date: 05/06/23 Status: Ordered Mental Status 06/05/23 Barriers to Learning one year None evide nt Mandatory Health Literacy Documentation Yes Health Literacy Communication Barriers N ever Primary Language Danish Problem List Condition Confirmation Course Effective Dates Status H ealth Status Informant Alopecia Confirmed Active Bowel dysfunction Confirmed Active Chronic pain syndrome Confirmed Active Combined hyperlipidemia Confirmed Active Daytime somnolence Confirmed Active Perineal numbness Confirmed Active Dyspnea on exertion Confirmed Active Exertional dyspnea Confirmed Active Edema Confirmed Active Encopresis with constipation and overflow incontinence Confirmed Active Essential hypertension Confirmed Active Fracture of manubrium Confirmed Active Functional fecal incontinence Confirmed Active STEPHEN (generalized anxiety disorder) Confirmed Active GERD Confirmed Active Gout Confirmed Active Chronic, continuous use of opioids Confirmed Active Hyperlipidemia Confirmed Active Insomnia Confirmed Active ROGER (iron deficiency anemia) Confirmed Active Lateral epicondylitis, left elbow Confirmed Active Leg pain, bilateral Confirmed Active Lumbar radiculopathy Confirmed Active Lymphedema Confirmed Active HERIBERTO (obstructive sleep apnea) Confirmed Active Bilateral leg pain Confirmed Active Peripheral neuropathy Confirmed Active Mild reactive airways disease Confirmed Active Chronic depression Confirmed Active Restless Legs Syndrome (RLS) Confirmed Active Snoring Confirmed Active Stasis dermatitis of both legs Confirmed Active DM neuropathy, type II diabetes mellitus Confirmed Active Diabetes mellitus type 2, noninsulin dependent Confirmed Active Venous stasis Confirmed Active Vulvodynia, Unspecified Confirmed Active Weight disorder Confirmed Active Diagnosis Diagnosis Type Effective Dates Health Status Clinical Service Informant Functional fecal incontinence Discharge Diagnosis 06/05/23 Chronic, continuous use of opioids Discharge Diagnosis 06/05/23 Non-Specified Procedures Procedure Date Related Diagnosis Body Site Status Barium swallow 1 03/20/23 Complete d Mammogram 2 12/18/22 Completed KUB X-ray 3 11/15/22 Completed MR Brain 4 11/15/22 Completed Chest X-ray 5 07/03/22 Completed Chest X-ray 6 05/27/22 Completed Chest X-ray 7 04/15/22 Completed Mammogram - screening 8 12/14/21 C ompleted caudal Epidural steroid injection 06/25/21 Completed Left knee 9 05/[address] of lumbar spine 10, 11 03/06/21 Completed CXR - Chest X-ray 12 02/16/21 Comp leted Right hip 13 02/16/21 Completed Chest X-ray 14 01/13/[address] of abdomen and pelvis wit h contrast 15 01/13/21 Completed Mammogram 16 12/12/20 Completed Colonoscopy 17 11/21/20 Completed Upper GI endoscopy 18, 19, 20 11/21/20 Completed Elbow X-ray LT 21 08/02/20 Complet ed Forearm X-ray LT 08/02/20 Compl eted Aspiration of left upper ext remity using ultrasonographic guidance 23 06/05/[address] of chest 24 03/19/[address] of neck 25 03/19/20 Completed Mammogram - screening 26 12/09/19 Completed Mammogram - screening 27 12/07/[address] 28 12/01/[address] of abdomen and pelvis wit hout contrast 29 12/01/[address] of lumbar spine 30 12/01/[address] of thoracic spine 31 12/01/18 C ompleted Chest x-ray 32 10/14/[address] Angiogram of the chest 33 10/14/18 Completed ECG 34 10/14/18 Completed Bilateral L3-L4 and right L4 -5 minimally invasive lumbar decompression (bilateral) 07/28/18 Comple randi Capsule endoscopy 35 02/16/18 Comp leted Arterial dopplar 36 01/26/18 Compl eted Colonoscopy 37 12/29/17 Completed Upper GI endoscopy 38, 39 12/29/17 Completed Mammogram 40 09/22/17 Completed DEXA of hip and spine 07/01/17 Com pleted PAP test date 41 06/23/17 Complete d Duplex scan of lower limb ve ins Right 42 06/09/17 Completed CXR - Chest X-ray 43 05/14/17 Comp leted MRI 44 12/30/16 Completed Epidural steroid injection 12/04/16 Completed CXR - Chest X-ray 45 10/17/16 Comp leted Angiogram Chest CT 46 09/28/16 Com pleted Chest CTA for Pulmonary arteries 47 09/26/16 Completed Chest x-ray 48 09/26/16 Completed Echocardiogram 49 09/26/16 Complet ed Mammogram - screening 50 09/18/16 Completed Lumbar epidural injection 51 05/08/16 Completed Cervical epidural steroid in jection [id number] 01/09/16 Completed PFT - Pulmonary function tests 52 12/28/15 Completed Spirometry 53 12/28/15 Completed Thyroid US 54 12/12/15 Completed Cervial epidural steroid injection 06/20/15 Completed PAP 55 06/14/15 Completed Exercise stress echocardiogr aphy 56, 57 05/18/[address] angiography of pulmonary artery 58 05/17/15 Completed MRI of cervical spine 59 05/17/15 Completed Hernia repair 60 02/21/15 Complete d Repair of incarcerated incis ional hernia with Surgimesh 10 cm indiameter, resection of incarcerated omentum 61 02/21/15 Completed Sacroiliac joint--injection 09/28/14 Completed Mammogram 62 08/31/14 Completed CXR - Chest X-ray 63 08/17/14 Comp leted Chest x-ray 64 08/12/14 Completed MRI of lumbar spine 65 06/29/[address] of abdomen and pelvis 66 03/26/14 Completed sleep study - repeat in 1 year 03/08/13 Completed Mammogram 67 08/19/12 Completed Appendectomy 2012 Completed PAP 12/03/11 Completed Unilateral Left Diagnostic M ammogram with CAD 68 12/06/10 Completed PAP 69 08/17/10 Completed Unilateral Left Digital Diag nositic Mammogram and targeted left US 70 08/06/10 Completed Mammogram with CAD 71 08/01/10 Com pleted XR Chest 72 06/14/10 Completed Echocardiogram 03/06/10 Completed Dexa Scan 73 09/22/09 Completed Mammogram 74 07/26/09 Completed Venous Duplex Left Leg 75 07/24/09 Completed PAP 76 06/27/09 Completed ECG 77 04/25/09 Completed Colonoscopy 78 11/15/04 Completed Bilateral Varicose Vein Stripping Completed 79 Completed Plates and screws placed in the Right ankle Completed Vein Stripping Completed Venous doppler ultrasonography 80 Completed 1IMPRESSION Moderate to severe gastroesophageal reflux demonstrated during the examinati 2IMPRESSION: ACR BI-RADS CATEGORY 1: NEGATIVE There is no mammograpic evidence of malignancy. A 1 year screening is recommended (12-19-2023) The patient will receive written notification of the results. 3Pain pump with the battery back in the right lower quadrant 41. No acute intracranial abnormality. 2. Involutional changes with mild chronic microvascular ischemic disease. 3. Subcentimeter chronic left frontal lobe periventricular lacunar infarcts. 5Mild cardiomegaly with no active disease in the chest 6Chronic findings as above without acute process. 7No acute process 8Impression: There is no mammographic evidence of malignancy. A 1 year screening mammogram is recommended. (12/15/2022). The patient will receive written notification of the results. 9Impresion: 1. No Fractures 2. Small knee effusion 103. Multileval extensive degernative changes incluind both a transverse process and superior aspect of sacrum 11Impression: 1. Please clinlically correlate for possiible loosening the left L2 pedicle screw 2. Right L3 pedicle screw extending cephalad with eroseive changes with overlying bone in the fightsuperios endplate of L3. 12negative 13no acute fracture 14Impression: Cardiomegaly without acute process. 15Impression: Normal appearance of the kidneys. No urolith or obstructive uropathy. No bowel obstruction or bowel wall thickening. Appendectomy Extensive postsurgical and posttraumatic changes of the lumbar spine redemonstrated. Additional findings as above. 16Impression: ACR BI-RADS CATEGORY 2: BENIGN There is no mammographic evidence of malignancy. A 1 year mammogram is recommended 17IMPRESSION: -The entire examined colon is normal. -No specimens collected. Repeat colonoscopy in 10 years for screening purposes. 18F/U as needed. 19The Z-line was regular and was foudn 38 cm from the incisors. The examined esophagus was normal. the entire examined stomach was normal. The examined dudoenum was normal. 20Pathology results: Duodenum, biopsy: No diagnostic abnormality 21Impression: No significant bony abnormalities 22Impression: No acute fracture. 231. There is no sonographic evidence of deep venous thrombosis identified in the left upper extremity. 2. Occlusive superficial venous thrombus is identified within the cephalic vein at and above the antecubital fossa as above 24[facility] Impression: 1. Nondisplaced manubrium fracture 25[facility] Impression: 1. No acute fractures 26There is no mammographic evidence of malignancy. A 1 year screening mammogram is recommended. The patient will receive written notification of the results. 27There is no mammographic evidence of malignancy. A 1 year screening mammogram is recommended. The patient will receive written notification of the results. 281. Acute minimally displaced fracture of the right transverse process of T10. No additional acute traumatic findings within the chest. 2. Groundglass opacities with mild mosaic attenuation within lungs which may reflect air trapping. 3. No pneumothorax. 291. No evidence of traumatic injury to the solid abdominal viscera on thsi unenhanced exam. 2. Acute minimally displaced fracture of the right transverse process of T10 with possible acute nondisplaced fracture of the posterior right 10th rib. 3. Postoperative and post traumatic findings within the lumbar spine which are better depicted on the lumbar spine CT. please see that report for further description. 301. No acute lumbar spine fracture or subluxation. 2. Postoperative findings within the lumbar spine consistent with a posterior decompression with L2-L5 bilateral pedicle screw fusion. Unchanged postoperativve appearance since CT of 09/28/18. with old severe L2 compression fracture and lucency surrounding the L2 pedicle screws which extend into theL1- L2 disc space. 3. Suboptimal evaluation of the central canal and neural foramen given CT technique. 311. Acute minimally displaced fracture of the right transvrese process of T10. No additional acute thoracic spine fracture. 2. Severe multilevel disc space narrowing with extensive osteophytosis and facet arthrosis of the thoracic spine. Suboptimal evaluation of the central canal and neural foramen given CT technique. 32Impression: negative chest 33Impression: No acute intrathoracic findings No evidence of acute pulmonary embolism No evidence of fucal pulmonary consolidation 34Rate 105 Rhythm: sinus tachycardia Findings: + other (normal intervals) and +left axis deviation; no PAC, no PVC, no ST depression andno ST elevation 35No source of anemia found. 36Unremarkable bilat lower extremity arterial dopplar u/S. No evidence for stenosis. No evidence of stenosis 6.3 X3.7 X 3.* cm suspected right popliteal cyst. This contains low level echos which favors debris. No color flow. A cystic mass is considered much less likely however a follow-up U/S in 3 months isrecommonded 37The examined portion of the ileum was normal. The entire examined colon is normal. No specimens collected . Repeat in 10 years. 38Normal esophagus. Z-line regular, 38 cm from the incisors. Normal stomach. Normal second portion of the duodenum, biopsied. 39Pathology results: Duodenum, biopsies: benign duodenal mucosa with no diagnostic abnormality 40Cat- 2, Benign 41WNL- negative for intraepithelial lesion or malignancy 42Impression: No evidence of right lower extremity DVT Right popliteal cyst measuring 70x 33x 16 mm. 431. Hazy subsegmental bibasilar opacities suggest atelectasis. 2. Hypoinflation. 44Lumbar spine Multilevel degernative changes in the cervial spine, most prominent at L3-L4 with severe central canal, severe right neural forminal stenosis with impingement of the right L3 exiting nerve root Severe right neural foraminal stenosis at L1-L2 and l2-L3, casuing impignment of right L1 and L2 exiting nerve roots respectively Severe left neural foramional stenosis at L4-5 casuing impingement Sever levoscoliosis of the lumbar spine with grade 1 anterolisthesis of L3 on L4 45Patchy airspace opacities within the right mid to lower lung zone which likely represents pneumonia.. Cardiac silhouette is normal in size. No pleural effusions. 461. No evidence for pulmonary embolus 2. Right lung airspace opacities which likely represent a pneumonia. Recommend f/u to ensure resolution 47Impression: No evidence for pulmonary embolus Right lung airspace opacities which likely represent a pneumonia. Recommend follow--up to ensure resolution. 48Impression: Patchy airspace opacities within the right mid to lower lung zone which likely represents a pneumonia. Recommend follow-up to resolution. 49Conclusion: Left ventricular systolic function is normal. Grade 1 diastolic dysfunction, (abnormal relaxation pattern) The right ventricular systolic function is normal as asssessed by tricuspid annular plane systolic excursion (TAPSE) ( normal>1.5cm) 50There is no mammographic evidence of malignancy. A 1 year screening mammogram is recommended. The patient will receive written notification of the results. 51Lumbar epidural steroid injection 52The spirometry reveals normal flow with no change in airflow with the use of albuterol. Essentiallystudy is normal. 53Interpretation: The spirometry is normal with no change in the airflow with the use of albuterol. The full volume loop appears to be normnal as well. 543 mm nodule mid pole left thyroid. Otherwise negative study. 55Negative for intraepithelial lesion or malignancy 56[facility] 57Maximum heart rate was 144 bpm. Maximum blood pressure was 188/67. Ejection fraction was 55-60%. Aortic valve sclerosis mild, without significant aortic valvular stenosis. There is mild mitral annular calcification. There is trace tricuspid regurgitation. Trace pulmonic valvular regurgitation. 581) No CT evidence of acute pulmonary embolism 2) Medicastinal lymph nodes the upper limits of normal size 3) Hepatic steatosis 4) Mild atelectatic changes. No evidence of lobar consolitdation 591. Severe narrowing of the left C6-C7 neural foramen due to uncovertebral hypertrophy and facet arthrosis. In addition, there is moderate narrowing of multiple additional neural foramen, as detailed above. 2. Normal cervical cord signal and caliber. 3. Mild multilevel central canal stenosis. 60Soft tissue, incisional hernia, excision: 1) Benign mesothelial-lined fibrous and adipose tissue with vascular congestion and acute hemorrhage consistent with incarcerated hernia contents. 2) Negative for malignancy 61Repair of incarcerated incisional hernia with Surgimesh 10 cm in diameter, resection of incarcerated omentum, Surgeon: Dr. Randal Knutson. 62Normal 63Mild basilar interstitial thickening. no evidence of failure. No evidence of lobar consolidiation. 64negative study. 65Scoliosis and advanced multilevel spondylitic change. There is multilevle spinal stenosis and multilevel foraminal narrowing. The spinal stenosis is most severe at the L3-L4 level. 66for flank pain and hematuria 67[facility] 68[facility] 69Dr. Perez 70[facility] 71[facility] [place] 72GMG 73GMG 74[facility] [place] 75GMG 76Dr. Perez [facility] 77GMG 78[facility] Dr. Carrion 79x3 80Impression: No DVT wiithin the left lower extremity. Vital Signs Most recent to oldest [Reference Range]: 1 Patient Weight 90.4 kg (06/05/23 8:52 AM) Heart Rate 85 bpm (06/05/23 8:52 AM) Respiratory Rate 18 br/min (06/05/23 8:52 AM) Blood Pressure 150/90mmHg (06/05/23 8:52 AM) Social History Social History Type Response Smoking Status Never smoked cigaret denise Sex Female Gastroenterology Outpatient Note * ANA MARIA Wolf, Linda Good: PERFORM Event Display: Gastroenterology Outpt Note Authored Date: Chief Complaint 6 month F/U. Former [facility] patient. History of Present Illness The patient is a pleasant [id number] presents today for evaluation ofdiarrhea.Previously managed by Wilma Vargas DNP. [facility]. Abdominal surgical procedures:Christiana has had a right-sidedhernia repair; appendectomy; x3; patient has had back surgeries x 4, most recent 04/2020 Prior records: 12/29/2017: Colonoscopy notes are reviewed performed due to history of iron deficiency anemia which demonstrated a normal-appearing terminal ileum with entire examined colon appearing normal. There were no specimens collected. Repeat colonoscopy recommendation in 10 years. EGD notes are reviewed performed the same date for iron deficiency anemia demonstrated examined esophagus which was normal; Z-line was regular and found 38 cm from incisors; examined stomach was normal; second portion ofduodenum was normal and biopsies was obtained. Pathology notes are reviewed and demonstrated benign duodenal mucosa with no diagnostic abnormality. 02/16/2018: Capsule endoscopy performed with no source of anemia found. 11/21/2020: Colonoscopy notes are reviewed performed due to history of iron deficiency anemia which demonstrated normal entire examined colon. No specimens were collected. Repeat colonoscopy in 10years for screening purposes. 11/21/2020: EGD notes are reviewed performed due to history of iron deficiency anemia which demonstrated a regular Z-line 38 cm from the incisors; normal examined esophagus, stomach, duodenum. No specimens were collected. Follow- up as needed. 12/20/2020 GI OV:Patient presents for follow-up of recent colonoscopy and EGD. Continued anemia and lack of energy. She has had an iron deficiency anemia complaint in the past. She had a work-up 3 years ago whichdemonstrated no cause ofher iron deficiency anemia. Reports that she has noted noblood in her stools. She does note that stools are black at times. She is not on an iron supplement. She does occasionally take Pepto- Bismol. She reportsintermittent nauseaand reports she has had this since her last back surgery. Denies vomiting. Denies any abdominal pain. She does havea lot offlatulence. She states that her bowelstend to be more constipated. She has been regular with use ofcombination stool softener andlaxative. She takes 3 tablets daily. She is onoxycodonechronically for back pain. She notes she has hadchronic fatigue. Is not increased from previous. She denies any unintentional weight loss. She denies history of he artburn. She is on pantoprazole 40 mg daily. Denies anyproblems swallowing. She is on 81 mgaspirin. She does take occasionalNSAIDs. 09/17/2022 GI OV: Patient presents in the office today for evaluation of ongoing diarrhea. She has been seen previously d/t h/o ROGER. Shehas been experiencing increased difficulty with fecal incontinence. She has a [facility] pain pumpimplanted. She reports that she has nocontrol over her bowels whatsoever. She has no urge for bowel movement. She does not know when she is had a bowel movement. She had previously been doing well in relation to fecal incontinencebut she just has no sensation at this time. She has been using a regimen of Dulcolax twice daily and stool softener. She is intolerant of MiraLAX. She primarily has nighttime incontinence. She does have to wear a pad. She has nocomplaints of fever, chills, night sweats, unintentional weight loss. She is walkingwith a single-point cane. Denies nausea or vomiting. She is on pantoprazole due to history of heartburn with well-controlled symptoms. No routine use of aspirin or other NSAIDs. No specific abdominal pain but does have a lot of abdominal gurgling. She has a bowel movement anywhere from 0-3 times daily. Stools are typically [place] type . She has no urge as stated and she is incontinent of stool frequently. Currentlyusing a fiber supplementation and denies melena or hematochezia. 10/17/2022 GI OV:Patient presents todayfor follow-up of diarrhea with fecal incontinence. She does have a history of opioid dependencydue to extensive back surgerythrough her insurance. She reports that she has actually had improvement of fecal incontinence with more regular bowel movements.. We were able to get Amitiza 24 mcgp.o. twice daily jimbo initially began using themedication 2 times dailyas instructed but did decrease this to 1daily. She feels that the 1 times daily is not effective but 2 times daily was too effective. She has been having small incomplete bowel movements but no fecal incontinence on once daily use. She would like to defer her referral tocolorectal surgery to her discussedsacral nerve stimulator as she has had improvement in the fecal incontinence. 12/17/2022 GI OV: Patient presents todayfor follow-up of diarrhea with fecal incontinence. She does have a history of opioid dependencydue to extensive back surgery. She reports that she has had continued improvementwith regular bowel movements with use of Amitiza. She is taking the Amitiza every dayonce a dayand Wednesdays and Fridays twice a day. She states that she fe els as though she couldincreasethe twice daily dosing. She continues to take 2 tablespoons ofMetamucil every day. In the last 2 months she reports she has had approximately 5-6 fecal incontinent episodes. She states that when she is incontinent, she has small amounts of stoolnow. Denies abdominal 06/05/2023 OV ([place]): Patient returns today for 6-month follow-up. She continues on her Amitizatwice daily on Friday, Friday, and Fridayand once daily remaining days of the week.She states with this she has a [place] type IV bowel movement once or twice weekly withoutmajor straining. She did complete her pelvic floor physical therapy previouslyshe states as long as she is episcopal on both her Amitiza and her Metamucil she does very well. If she gets lazy on her Metamucil because of time constraints and leaving the houseshe willhave an accident once or twice a month. Patient does states she has a history of dysphagia to rice, spaghetti, and 3 or 4 otherthings. She states she had the test for thisand all was well. She just avoids these foods andotherwise denies dysphagia. She denies nausea, vomiting, abdominal pain, heartburn,melena, hematocheziaor diarrhea. Social history: The patient is a lifetime non-smoker. She denies any alcohol intake. She denies use of recreational drugs including marijuana. She is retired. 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 She is with 3 adult children and 8 grandchildren. No further complaints or concerns today. Physical Exam Vitals & Measurements HR:85(Monitored) RR:18 BP:150/90 SpO2:96% WT:90.400kg(Dosing) WT:90.4kg General:Alert and oriented, No acute distress, appears stated age HENT:Normocephalic, normal hearing Respiratory: Respiration are non-labored, pt speaking in complete sentences,and no evidence of respiratory distress is noted Integumentary:Exposed skin viewable is dry and intact Psychiatric:Cooperative, appropriate mood & affect, Normal judgement Assessment/Plan 1.Functional fecal incontinence The patient is a pleasant 73-year-old female who presents in the office today for evaluation of fecal incontinence. She has history of extensive surgical procedure history at [facility] in [place] with fusion from T8-L1 June 2020 as well as prior history of an L2-5 fusion. 1. Fecal incontinence: -Continue currentdosing; may increaseto additional twice daily daysif constipation worsens. -Discussed with patientfiber Gummies to increase compliance. Provided her with patient education handoutregardingfiber. Fecal incontinence has been ongoing nowfor 2+ yearsranging from daily to weekly Patient discontinued use of Dulcolax twice daily and stool softener/She is intolerant of MiraLAX Per prior note due to chronic opioiduse, started Amitiza 24 mcg po BID but patient struggled with twice daily use of Amitiza. Wilma Vargas DNP previously discussed that patient would be a good candidate for sacral nerve stimulatorwith our colorectal team. She deferred consult as she has had significant improvement in fecal incontinence with use of Amitiza. Completed pelvic floor/biofeedbackphysical therapy 2. CRCscreening: Most recent colonoscopy11/2017 with repeat recommended in 10 years Patientwould like to defer colonoscopy at this time GI follow up in12 months, sooner if needed. I have spent21 minutes in evaluation, education and documentation of this pt in both face to face and non-face to face activities. Problem List/Past Medical History Ongoing Alopecia Bilateral leg pain Bowel dysfunction Chronic depression Chronic pain syndrome Chronic, continuous use of opioids Combined hyperlipidemia Daytime somnolence Diabetes mellitus type 2, noninsulin dependent DM neuropathy, type II diabetes mellitus Dyspnea on exertion Edema Encopresis with constipation and overflow incontinence Essential hypertension Exertional dyspnea Fracture of manubrium Functional fecal incontinence STEPHEN (generalized anxiety disorder) GERD Gout Hyperlipidemia ROGER (iron deficiency anemia) Insomnia Lateral epicondylitis, left elbow Leg pain, bilateral Lumbar radiculopathy Lymphedema Mild reactive airways disease HERIBERTO (obstructive sleep apnea) Perineal numbness Peripheral neuropathy Restless Legs Syndrome (RLS) Snoring Stasis dermatitis of both legs Venous stasis Vulvodynia, Unspecified Weight disorder Historical Acute pain Antibiotic-associated diarrhea Diffuse pneumonia Rectal bleeding Recurrent UTI Right hip pain Procedure/Surgical History Barium swallow (03/20/2023)Mammogram (12/18/2022)MR Brain (11/15/2022)KUB X-ray (11/15/2022)Chest X-ray (07/03/2022)Chest X-ray (05/27/2022)Chest X-ray (04/15/2022)Mammogram -screening (12/14/2021)caudal Epidural steroid injection (06/25/2021)Left knee (Week of 05/06/2021)CT of lumbar spine (03/06/2021)Right hip (02/16/2021)CXR - Chest X-ray (02/16/2021)Chest X-ray (01/13/2021)CT of abdomen and pelvis with contrast (01/13/2021)Mammogram (12/12/2020)Colonoscopy (11/21/2020)Upper GI endoscopy (11/21/2020)Forearm X-ray LT (08/02/2020)Elbow X-ray LT (08/02/2020)Aspiration of left upper extremity using ultrasonographic guidance (06/05/2020)CT of chest (03/19/2020)CT of neck (03/19/2020)Mammogram - screening (12/09/2019)Mammogram - screening (12/07/2018)CT of thoracic spine (12/01/2018)CT of lumbar spine ( 019)Chest CT (12/01/2018)CT of abdomen and pelvis without contrast (12/01/2018)ECG (10/14/2018)Chest x-ray (10/14/2018)CT Angiogram of the chest (10/14/2018)Bilateral L3-L4 and right L4-5 minimally invasive lumbar decompression (bilateral) (07/28/2018)Capsule endoscopy (02/17/20 18)Arterial dopplar (01/26/2018)Colonoscopy (12/29/2017)Upper GI endoscopy (12/29/2017)Mammogram (09/22/2017)DEXA of hip and spine (07/01/2017)PAP test date (06/23/2017)Duplex scan of lower limb veins Right (06/09/2017)CXR - Chest X-ray (05/14/2017)MRI (12/30/2016)Epidu ral steroid injection (12/04/2016)CXR - Chest X-ray (10/17/2016)Angiogram Chest CT (09/28/2016)Echocardiogram (09/26/2016)Chest CTA for Pulmonary arteries (09/26/2016)Chest x-ray (09/26/2016)Mammogram - screening (09/18/2016)Lumbar epidural injection (05/08/2016)Cervical epidural steroid injection [id number] (01/09/2016)Spirometry (12/28/2015)PFT - Pulmonary function tests (12/28/2015)Thyroid US (12/12/2015)Cervial epidural steroid injection (06/20/2015)PAP (06/14/2015)Exercise stress echocardiography (05/18/2015)MRI of cervical spine (05/17/2015)CT angiography of pulmonary artery (05/17/2015)Repair of incarcerated incisional hernia with Surgimesh 10 cm indiameter, resection of incarcerated omentum (02/21/2015)Hernia repair (02/21/2015)Sacroiliac joint--injection (09/28/2014)Mammogram (08/31/2014)CXR - Chest X-ray ( 08/17/2014)Chest x-ray (08/12/2014)MRI of lumbar spine (06/29/2014)CT of abdomen and pelvis (03/26/2014)sleep study - repeat in 1 year (03/08/2013)Mammogram (08/19/2012)Appendectomy(2012)PAP (12/03/2011)Unilateral Left Diagnostic Mammogram with CAD (12/06/2010)PAP (08/17/2010)Unilateral Left Digital Diagnositic Mammogram and targeted left US (08/06/2010)Mammogramwith CAD (08/01/2010)XR Chest (06/14/2010)Echocardiogram (03/06/2010)Dexa Scan (09/22/2009)Mammogram (07/26/2009)Venous Duplex Left Leg (07/24/2009)PAP (06/27/2009)ECG (04/25/2009)Colonoscopy (11/15/2004)Bilateral Varicose Vein StrippingPlates and screws placed in the Right ankleVein StrippingC- sectionVenous doppler ultrasonography Medications albuterol(albuterol 0.083% for nebulization), 2.5 mg= 3 mL, inhaled, q6h, PRN, 3 refills albuterol(Albuterol (Eqv-ProAir HFA) 90 mcg/inh inhalation aerosol), 2 puff, inhaled, q6h amLODIPine(amLODIPine 5 mg oral tablet), See Instructions, 3 refills atorvastatin(atorvastatin 40 mg oral tablet), See Instructions diabetes supplies(One Touch Ultra 2 Glucose Monitor), See Instructions diabetes supplies(One Touch Ultra Test Strips 100 ct), See Instructions, 3 refills diabetes supplies(One Touch Ultrasoft (28G) Lancets), See Instructions, 3 refills DULoxetine(Cymbalta 60 mg oral delayed release capsule), 60 mg= 1 cap, PO, bid, 3 refills gabapentin(gabapentin 300 mg oral capsule), See Instructions glipiZIDE(glipiZIDE 2.5 mg oral tablet, extended release), 2.5 mg= 1 tab, PO, bid, 3 refills losartan(losartan 50 mg oral tablet), 50 mg= 1 tab, PO, Daily, 1 refills lubiprostone(Amitiza 24 mcg oral capsule), 24 mcg= 1 cap, PO, bid, 3 refills metFORMIN(metFORMIN 1000 mg oral tablet), See Instructions, 3 refills pantoprazole(pantoprazole 40 mg oral delayed release tablet), See Instructions, 2 refills pramipexole(pramipexole 0.25 mg oral tablet), 0.25 mg= 1 tab, PO, tid, 3 refills semaglutide(Ozempic (0.25 mg or 0.5 mg dose) 2 mg/3 mL subQ pen), 0.25 mg, subQ, q7days, 1 refills triamcinolone topical(triamcinolone 0.1% topical cream), 1 appl, topical, bid Allergies Ceftinvomited with the 500mg dose Social History Smoking Status Never smoked cigarettes Alcohol - Denies Alcohol Use Employment/School Status: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 Cervical cancer: Daughter. Diabetes: Brother. HTN (hypertension): Mother. Heart attack: Mother. Lung cancer..: Mother. Osteoporosis: Mother. Parkinson disease: Father. Health Status Family Member(s) Family Member(s) Relationship: Mother, Age: Unknown Relationship: Father, Age: Unknown Immunizations Vaccine Date Status influenza virus vaccine, inactivated 02/22/2022 Given influenza virus vaccine, inactivated 02/26/2021 Given SARS-CoV-2 (COVID-19) mRNA BNT-162b2 vax 07/27/2020 Recorded Comments : 2020-11-17: Historical information-source unspecified SARS-CoV-2 (COVID-19) mRNA BNT-162b2 vax 07/06/2020 Recorded Comments : 2020-11-17: Historical information-source unspecified pneumococcal 23-valent vaccine 05/02/2020 Recorded Comments : 2020-11-17: Historical information-source unspecified influenza virus vaccine, inactivated 02/25/2020 Given influenza virus vaccine, inactivated 03/15/2019 Given influenza virus vaccine, inactivated 02/17/2018 Given influenza virus vaccine, inactivated 02/11/2017 Given influenza virus vaccine, inactivated 03/07/2016 Given pneumococcal 13-valent vaccine 03/06/2015 Given influenza virus vaccine, inactivated 02/09/2015 Given influenza virus vaccine, inactivated 03/04/2014 Given pneumococcal 23-valent vaccine 04/19/2013 Given influenza virus vaccine, inactivated 02/16/2013 Given influenza virus vaccine, inactivated 03/2012 Recorded tetanus/diphtheria/pertuss, acel (Tdap) 11/16/2007 Recorded pneumococcal 23-valent vaccine 10/09/2005 Recorded Comments : 2020-11-17: Historical information-source unspecified Recommendations Health Maintenance Pending(in the next year) OverDue Falls Plan of Care due04/06/22and every 1year Adult Influenza Vaccine due11/29/22and every 1year Medicare Annual Wellness Visit due01/17/23and every 1year Due Adult COVID-19 Vaccination due06/05/23Unknown Frequency Adult Social Determinants of Health Screening due06/05/23Unknown Frequency Adult Tdap/Td Vaccine due06/05/23Unknown Frequency Shingles Vaccine due06/05/23One-time only Due In Future Diabetes Management A1c not due until04/25/24and every 366day Satisfied(in the past 1 year) Satisfied Body Mass Index on03/14/23.Satisfied by GILBERTO Reyes, Stephany Diabetes Management A1c on04/25/23.Satisfied by Contributor_system, [email or web address] Diabetes Nephropathy Management on04/25/23.Satisfied by Contributor_system, [email or web address] Diabetic Eye Exam on02/05/23.Satisfied by GILBERTO Manriquez Heather Lipid Screening on01/28/23.Satisfied by Contributor_system, [email or web address] Electronic Signature on File Electronically Reviewed/Signed by: Linda Wolf PA-C Author Signature Dt/Tm:06/05/2023 09:19 AM Division of Gastroenterology Electronically Reviewed/Signed by: Bharath Estevez MD Cosigner Signature Dt/Tm: 06/05/2023 09:45 AM Division of Gastroenterology [facility] Patient Care team information Care Team Personnel Name: SUMMER Spears Tara Position: Nurse Pract - Family Med Member Role: Lifetime Relationship Address: Address: [address] [place] [id number] [place] Name: [place], [place] Position: Physician - Family Med Member Role: Primary Care Provider Address: Address: [address] [place] [address] [place] Care Team Related Persons Name: JORGE PORTILLO Address: home [address] [phone]
[2023-07-01 03:46] LABS: Hematocrit (blood only) 39.2 % (37.0-47.0); Hemoglobin 12.5 g/dl (12.0-16.0); Mean Corpuscular Hemoglobin 30.6 pg (25.0-34.0); Mean Corpuscular Hgb Conc 31.9 g/dL (32.0-36.0); Mean Corpuscular Volume 96.1 fL (80.0-100.0); Mean Platelet Volume 10.1 fL (9.4-12.4); Platelet Count 193 K/uL (130-400); RDW Coefficient of Variation 13.6 % (11.5-14.5); RDW Standard Deviation 47.9 fL (36.4-46.3); Red Blood Count 4.08 M/uL (4.20-5.40); White Blood Count 15.22 K/ul (4.8-10.8)
[2023-07-01 03:59] LABS: C Reactive Protein 27.64 mg/dl (0-0.5)
[2023-07-01 04:03] LABS: BUN Creatinine Ratio 20.4 (10-20); Calcium 8.1 mg/dl (8.6-10.3); Creatinine Clr Calc Pharmacy 56.7 ml/min; Est GFR (African American) 71.7 ml/min; Est GFR (Non-African American) 61.8 ml/min; Magnesium 1.4 mg/dl (1.7-2.4); Phosphorus 2.9 mg/dl (2.5-4.9)
[2023-07-01] MEDS: ALBUT/IPRATROP 3MG/0.5MG NEB 3 ML VIAL NEB SCH (04:09)
[2023-07-01 04:21] LABS: Lyme Ab IgG w/WB Rflx Negative (Negative); Lyme Ab IgM w/WB Rflx Negative (Negative)
[2023-07-01 05:06] LABS: Basophils # (auto) 0.05 K/uL (0.00-0.20); Basophils % (auto) 0.3 %; Immature Granulocytes # (auto) 0.56 K/uL (0.01-0.20); Immature Granulocytes % (auto) 3.7 %; Lymphocytes # (auto) 1.67 K/uL (1.20-3.40); Monocytes # (auto) 0.82 K/uL (0.11-0.59); Monocytes % (auto) 5.4 %; Neutrophils # (auto) 12.12 K/uL (1.40-6.50); Neutrophils % (auto) 79.6 %
[2023-07-01] MEDS: MAGNESIUM SULFATE / D5W 1 GM/100 ML BAG IV SCH (05:27)
[2023-07-01 06:45] LABS: Echinocytes 1+
--- NOTE | 2023-07-01 07:01 | Billing Data ---
Date of Service July 01, 2023 Coding Level of Care Code 30503 INT INP/OBS CARE
--- NOTE | 2023-07-01 07:14 | XRay Report ---
XR chest 1V portable HISTORY: hypoxia COMPARISON: Chest 07/03/2022. FINDINGS: There are low lung volumes. No pneumothorax. The heart is mildly enlarged. Thoracolumbar sp inal fusion hardware is noted. No acute fractures. Right basilar consolidation suggestive of a pneumo mis. This could be due to aspiration. Additional left basilar linear densities consistent with subseg mental atelectasis. Mild central pulmonary vascular congestion without overt edema. IMPRESSION: 1. Right basilar consolidation consistent with a pneumonia. This could be due to aspiration. 2. Cardiomegaly and mild congestive change. ACT 112: Negative or not required by law. Electronically signed by: Oc Rosas M.D. 07/01/2023 7:13 AM
[2023-07-01] MEDS: LACTATED RINGER'S 500 ML IV ONE (08:09)
[2023-07-01 08:12] LABS: Estimated Average Glucose 163 mg/dl; Hemoglobin A1C 7.3 % (4.5-5.6)
--- NOTE | 2023-07-01 08:37 | XRay Report ---
KUB CLINICAL HISTORY: Nausea and vomiting. Generalized abdominal pain. FINDINGS: 2 AP, portable, supine abdominal radiographs are correlated with abdominal CT dated 10/25/19. There is a nonobstructed abdominal bowel gas pattern. No evidence of intraperitoneal free air is seen on these supine images. There are no abnormal abdominal calcifications. Phleboliths are noted in the pelvis. An electronic device projects over the right lower quadrant. The skeletal structures are osteopenic. Advanced degenerative and postsurgical change is seen in the imaged thoracolumbar spine. IMPRESSION: No acute abnormality is identified. Electronically signed by: Amor De La Vega M.D. 07/01/2023 8:36 AM
[2023-07-01] MEDS ORDERED: LOSARTAN/HCTZ 50/12.5MG TAB PO SCH (09:00)
[2023-07-01] MEDS: DULoxetine HCL 60 MG CAP PO SCH (09:24)
[2023-07-01] MEDS: GABAPENTIN 300 MG CAP PO SCH (09:24)
[2023-07-01] MEDS: POTASSIUM CHLORIDE CRTAB 20 MEQ TABCR PO STA (09:24)
[2023-07-01] MEDS: ATORVASTATIN 40 MG TAB PO SCH (09:24)
[2023-07-01] MEDS: amLODIPine BESYLATE 5 MG TAB PO SCH (09:24)
[2023-07-01] MEDS: PRAMIPEXOLE DIHYDROCHLO 0.5 MG TAB PO SCH (09:25)
[2023-07-01] MEDS: PANTOprazole 40 MG TAB PO SCH (09:25)
[2023-07-01] MEDS: ENOXAPARIN INJ 40 MG/0.4 ML SYR SQ SCH (09:25)
[2023-07-01] MEDS: INSULIN ASPART PER UNIT CHARGE SC SCH (09:34)
[2023-07-01] MEDS: LANTUS PER UNIT CHARGE SQ SCH (09:35)
[2023-07-01] MEDS: PIPER/TAZO 4.5g in D5W MINI-B 100 ML IV ONE (09:35)
[2023-07-01] MEDS ORDERED: CEFEPIME 2,000 MG in SYRINGE 0 ML IV SCH (10:00)
[2023-07-01] MEDS: POTASSIUM CHLORIDE CRTAB 20 MEQ TABCR PO SCH (11:52)
--- NOTE | 2023-07-01 12:08 | Electrocardiogram Report ---
Test Reason : Blood Pressure : / mmHG Vent. Rate : 102 BPM Atrial Rate : 102 BPM P-R Int : 160 ms QRS Dur : 126 ms QT Int : 348 ms P-R-T Axes : 025 -70 -01 degrees QTc Int : 453 ms Sinus tachycardia Right bundle branch block Left anterior fascicular block Bifascicular block Possible Anterolateral infarct (cited on or before 21-APR-2020) Abnormal ECG When compared with ECG of 19-APR-2023 16:07, No significant change was found Confirmed by Augustine Soriano ([id number]) on 07/01/2023 12:08:28 PM Referred By: REFERRED SELF Confirmed By:Augustine Soriano
--- NOTE | 2023-07-01 12:42 | History & Physical Bridge Note ---
Date of Service July 01, 2023 History & Physical Bridge Note I have examined the patient, reviewed the History & Physical and in the interval since the performance of the History & Physical I have noted the following changes of clinical significance: Pt continues to complain of severe right sided chest pain from right axilla into right anterior chest. Pain is worse with inspiration, constant. Stil has a headache as well and just does not feel well at all. Denies leg pain or sweling but does report a remote h/o DVT in eleg 40 years ago. Vital sreviewed NAD, AAOx3 RRR no mgr Lungs with crackles bibasilar and right middle lung field crackles, no wheezes or rhonchi no bruising or rash over right chest wall, no TTP over chest Legs no edema or calf tenderness Concern for PE although does have clear PNA, elevated procal, hypoxia, tachycardia so could have pleuritic pain from PNA but need ot r/o PE Check CTA Chest to assess for PE and further assess extent of PNA given she has crackles bilateral Add on ICS, flutter valve Change abx to IV ZOsyn and Vanco for aspiration coverage as well ADdd on tylenol for pain and low dose of morphine. Can also try toradol for pain For hyponatremia--dc HCTZ, continue further IVFs Replace with po KCL 40 meq this AM and then 20 meq tid Replacing IV magnesium
--- NOTE | 2023-07-01 13:05 | Pharmacy Report ---
Pharmacy PK ABX Note - Date of Service July 01, 2023 - Assessment and Plan Assessment 73 year old F receiving vancomycin/zosyn for treatment of pneumonia. Pertinent microbiologic data includes: MRSA nasal swab pending, blood cultures, urine culture pending. Leukocytosis on admission downtrending, afebrile. Chest XRay with right basilar consolidation consistent with a pneumonia. Plan Vancomycin * Loading dose: 2000 mg IV x 1 * Maintenance dose: 1250 mg IV every 18 hours * Regimen is predicted to achieve target AUC/FRED of 400-600 mg/L.hr * Random level for 07/02 with AM labs to assist with dosing Pharmacy will continue to follow and will adjust dose/frequency as necessary. Thank you. Pharmacy has transitioned to AUC monitoring for vancomycin. AUC/FRED is the preferred PK/PD target and is associated with decreased risk of nephrotoxicity c ompared to traditional trough targets.
[2023-07-01] MEDS: KETOROLAC TROMETHAMINE 15 MG/ML VIAL IV ONE (13:11)
[2023-07-01] MEDS: OPTIRAY 320 125ml IV ONE (13:19)
--- NOTE | 2023-07-01 13:41 | CT Scan Report ---
CT ANGIOGRAM OF THE CHEST CLINICAL HISTORY: Atypical chest pain. Hypoxia. COMPARISON STUDY: Chest CT dated 03/19/2020. Chest x-ray dated 06/30/2023. TECHNIQUE: Following the IV administration of 117 cc of Optiray 320, CT angiogram of the chest was pe rformed from the upper abdomen to the thoracic inlet utilizing the pulmonary embolus protocol. Images are reviewed in the axial, sagittal, and coronal planes. 3-D MIPS images are created and assessed. I V contrast was administered without complication. A dose lowering technique was utilized adhering to the principles of ALARA. There is streak artifact from extensive metallic spinal hardware. There is also significant motion artifact. FINDINGS: Thyroid: Imaged portions of the thyroid gland are normal in size and attenuation. Thoracic aorta: There is mild atherosclerotic calcification of the thoracic aorta, which is normal in caliber and demonstrates standard 3-vessel arch anatomy. No dissection is seen. Pulmonary vasculature: The pulmonary trunk is normal in caliber. There are no filling defects identif ied in main, lobar, or segmental pulmonary branches to suggest pulmonary embolus. Evaluation of the p eripheral branches is degraded by motion artifact. Heart: The heart is enlarged and without pericardial effusion. The coronary arteries and mitral annul us are densely calcified. Lungs and pleural spaces: Evaluation of the lung parenchyma is degraded by motion artifact. There is airspace consolidation in the right middle lobe. Dependent consolidation is seen at both lung bases. There is trace right pleural effusion. The trachea and central airways are clear. Mediastinum: Mildly enlarged mediastinal lymph nodes are likely reactive. A subcarinal node measures 12 mm short axis. A precarinal node measures 13 mm in short axis. Doris: Clear. Axillae: There is no axillary lymphadenopathy. Upper abdomen: The liver appears stated ptotic. Excreted IV contrast is noted in the partially visual ized left renal collecting system. Skeletal structures: The skeletal structures are osteopenic. Degenerative change is noted throughout the thoracic spine. Extensive postlaminectomy change is seen at the thoracolumbar junction. Abnormal widening is again seen between the anterior endplates of T10 and T11, likely related to prior trauma. Arthritic change is noted in the shoulders. No lytic or blastic bony lesions are seen. IMPRESSION: 1. Significantly streak and motion degraded examination. 2. There is no evidence of pulmonary embolus in the main, lobar, or segmental pulmonary arteries. 3. Right middle lobe consolidation is typical for pneumonia. Clinical correlation will be required an d radiographic follow-up to resolution is recommended. 4. Dependent consolidation is seen at both lung bases with trace right pleural effusion. This could r epresent atelectasis and/or additional foci of pneumonia. 5. Cardiomegaly. 6. Hepatic steatosis. 7. Additional findings as above. ACT 112: Negative or not required by law. Electronically signed by: Amor De La Vega M.D. 07/01/2023 1:40 PM
[2023-07-01] MEDS: PIPERACILLIN/TAZOBACTAM 4.5 GM in DEXTROSE 5% MINI-B 100 ML IV SCH (14:11)
[2023-07-01] MEDS ORDERED: VANCOMYCIN HCL 1,250 MG in SODIUM CHLORIDE 0.9% 250 ML IV SCH (20:00)
[2023-07-01] MEDS: VANCOMYCIN HCL 1,250 MG in SODIUM CHLORIDE 0.9% 250 ML IV SCH (20:15)
[2023-07-01] MEDS: DOCUSATE SODIUM 100 MG CAP PO SCH (20:24)
[2023-07-01] MEDS ORDERED: Nursing to Pharmacy Communication SCH (21:45)
[2023-07-02 05:46] LABS: Basophils # (auto) 0.03 K/uL (0.00-0.20); Basophils % (auto) 0.2 %; Eosinophils # (auto) 0.06 K/uL (0.00-0.50); Eosinophils % (auto) 0.4 %; Hematocrit (blood only) 33.2 % (37.0-47.0); Hemoglobin 11.2 g/dl (12.0-16.0); Immature Granulocytes # (auto) 0.51 K/uL (0.01-0.20); Immature Granulocytes % (auto) 3.1 %; Lymphocytes % (auto) 9.1 %; Mean Corpuscular Hemoglobin 31.5 pg (25.0-34.0); Mean Corpuscular Hgb Conc 33.7 g/dL (32.0-36.0); Mean Corpuscular Volume 93.5 fL (80.0-100.0); Mean Platelet Volume 10.5 fL (9.4-12.4); Monocytes # (auto) 0.61 K/uL (0.11-0.59); Monocytes % (auto) 3.7 %; Neutrophils # (auto) 13.81 K/uL (1.40-6.50); Neutrophils % (auto) 83.5 %; Platelet Count 184 K/uL (130-400); RDW Coefficient of Variation 13.2 % (11.5-14.5); RDW Standard Deviation 45.8 fL (36.4-46.3); Red Blood Count 3.55 M/uL (4.20-5.40); White Blood Count 16.52 K/ul (4.8-10.8)
[2023-07-02 06:00] LABS: BUN Creatinine Ratio 22.4 (10-20); Calcium 8.5 mg/dl (8.6-10.3); Creatinine Clr Calc Pharmacy 63.1 ml/min; Est GFR (African American) 79.9 ml/min; Est GFR (Non-African American) 68.9 ml/min; Magnesium 2.3 mg/dl (1.7-2.4); Potassium 4.3 mmol/L (3.5-5.1)
[2023-07-02] MEDS: ACETAMINOPHEN 325 MG TAB PO PRN (09:03)
--- NOTE | 2023-07-02 09:17 | Pharmacy Report ---
Pharmacy PK ABX Note - Date of Service July 02, 2023 - Assessment and Plan Assessment 07/02: Vancomycin day 2: Reviewed vancomycin trough, level predicting slightly low, will increase dose slightly for a predicted AUC/FRED of 483mg/L.hr with 92% probability. 07/01: 73 year old F receiving vancomycin/zosyn for treatment of pneumonia. Pertinent microbiologic data includes: MRSA nasal swab pending, blood cultures, urine culture pending. Leukocytosis on admission downtrending, afebrile. Chest XRay with right basilar consolidation consistent with a pneumonia. Plan Vancomycin * Maintenance dose: increase to vancomycin 1500 mg IV every 18 hours * Regimen is predicted to achieve target AUC/FRED of 400-600 mg/L.hr * Random level for 07/04/23 @ 1000 when at steady state Pharmacy will continue to follow and will adjust dose/frequency as necessary. Juliane noyola. Pharmacy has transitioned to AUC monitoring for vancomycin. AUC/FRED is the preferred PK/PD target and is associated with decreased risk of nephrotoxicity compared to traditional trough targets.
[2023-07-02] MEDS: VANCOMYCIN HCL 1,500 MG in SODIUM CHLORIDE 0.9% 500 ML IV SCH (10:07)
--- NOTE | 2023-07-02 19:09 | Hospitalist Progress Note ---
"Date of Service July 02, 2023 Assessment & Plan (1) Sepsis: Plan: Sepsis, POA-with leukocytosis of 22, tachycardia, tachypnea, RLL pneumonia on CXR, elevated procalcitonin, with acute respiratory failure with hypoxia Did have N/V/D prior to admission so could have aspiration PNA Also with possible Urinary tract infection Improving, WBC count down to 16, afebrile, tachycardia resolved with IVFs and antibiotics Follow blood cultures-NGTD (note: pt received 1x cefepime prior to blood cultures). UA with mixed WBCs and epis, Ur cx pin point growth-follow -continue Vancomycin, Zosyn -Lactate of 2.8, procal of 7.06 now improving -Respiratory BioFire and COVID negative -Duonebs QID ordered -continue flutter valve, ICS -check sputum culture -start Mucinex 1200mg po bid -follow CXR to resolution -wean off O2 as able to (2) Pneumonia: Plan: as above (3) Chest pain: Plan: With right sided chest and axillary pain with deep inspiration Concern for PE -Checked CTA Chest -negative for PE but shows RML PNA and bilat dependent consolidation, trace pleural effusion COntinue tylenol, morphine prn pain (4) Headache: Plan: related to dehydration, acute illness improving continue tylenol received IVFs (5) Nausea vomiting and diarrhea: Plan: Nausea/Vomiting/Diarrhea-now resolved -Stool BioFire ordered but not collected as diarrhea resolve (6) Hypomagnesemia: Plan: Hypomagnesemia, Hyponatremia, hypokalemia -Mag of 1.0 on arrival, received IV mag replacement and now level is normal For hyponatremia--dcd HCTZ, gave further IVFs-now stop as Na+ normal For hypokalemia-replaced with po KCl and now normal-holding HCTZ (7) Diabetes: Plan: Type 2 Diabetes Mellitus -Holding home medications -Sliding scale insulin ordered -HgbA1C well controlled at 7.3% (8) Neurogenic claudication due to lumbar spinal stenosis: Plan: Lumbosacral Radiculopathy | S/P Lumbar Fusion -Intrathecal infusion pump in place -Continue home Gabapentin, Duloxetine (9) Hypertension: Plan: BPs controlled -Continue Amlodipine, Losartan holding HCTZ (10) Hyperlipidemia: Plan: -Continue atorvastatin Plan Dispo-improving, continued stay PCU/tele, PT/OT evals but likely dc to home in 1-2 days VTE Prophylaxis: Lovenox Code Status: Full Code discussed care with daughter at bedside Admission and Anticipated Discharge Date Admission Date: July 01, 2023 Subjective Pt feeling much better today. Still with intermittent headache which was improved earlier with tylenol. Feels her sputum is starting to loosen in her chest but not bringing anything up yet. Using flutter valve and ICS. Still with right sided chest pains with deep inspiration but improving. She is much stronger today and was up and walking around the room independently. Tele with NSR rates 70-80s Physical Exam Constitutional: WD/WN, vitals as above Neck: trachea midline, no thyromegaly Respiratory: normal respiratory effort; no cough Auscultation: + crackles (right middle and lower lung villanueva); no rhonchi and no wheezes Cardiovascular: RRR, no murmur, no edema Chest (Breasts): Chest: normal inspection of chest Gastrointestinal (Abdomen): normal bowel sounds, soft, nontender, no hepatosplenomegaly Musculoskeletal: Extremities: extremities normal to inspection; no cyanosis and no clubbing Skin: no rashes, warm and dry Neurologic: moves all extremities and awake; no focal motor deficits Psychiatric: A+Ox3, euthymic affect Lymphatic: no lymphedema Results & Data Results & Data Vital Signs (Past 12 Hours) Vital Signs Temp Pulse Pulse Resp BP BP Pulse Ox 07/02/23 16:50 75 07/02/23 16:18 36.4 C L 82 19 120/77 92 07/02/23 15:59 78 20 94 07/02/23 10:34 36.6 C 79 18 113/71 92 07/02/23 07:16 36.4 C L 87 18 120/72 92 O2 Del Method O2 Flow Rate 07/02/23 16:50 07/02/23 16:18 Room Air 07/02/23 15:59 Nasal Cannula 1 07/02/23 10:34 Nasal Cannula 07/02/23 07:16 Nasal Cannula 2 Laboratory Results CBC, BMP, Procal reviewed PG Care Time/CCT Total # of Minutes Spent Total Time Spent with Patient: Total time spent is greater than 50% in coordination of care (as documented) at patient's floor/unit and/or counseling patient: Coding Level of Care Code 50253 SUB INP/OBS CARE 3/50MIN Diagnoses Sepsis A41.9 Pneumonia J18.9 Chest pain R07.9 Chest pain type: unspecified Headache R51.9 Nausea vomiting and diarrhea R11.2; R19.7 Hypomagnesemia E83.42 Type 2 diabetes mellitus without complication, without long-term current use of insulin E11.9 Diabetes mellitus complication status: without complication Diabetes mellitus italian teacher insulin use: without italian teacher use Diabetes mellitus type: type 2 Neurogenic claudication due to lumbar spinal stenosis M48.062 Essential hypertension I10 Hypertension type: essential hypertension Hyperlipidemia, unspecified hyperlipidemia type E78.5 Hyperlipidemia type: unspecified (3) Chest pain Chest pain type: unspecified Qualified Code(s): R07.9 - Chest pain, unspecified (7) Diabetes Diabetes mellitus complication status: without complication Diabetes mellitus senior living insulin use: without senior living use Diabetes mellitus type: type 2 Qualified Code(s): E11.9 - Type 2 diabetes mellitus without complications (9) Hypertension Hypertension type: essential hypertension Qualified Code(s): I10 - Essential (primary) hypertension (10) Hyperlipidemia Hyperlipidemia type: unspecified Qualified Code(s): E78.5 - Hyperlipidemia, unspecified"
[2023-07-02] MEDS: guaiFENesin 600 MG TABCR PO SCH (20:42)
[2023-07-03 07:57] LABS: Basophils # (auto) 0.03 K/uL (0.00-0.20); Basophils % (auto) 0.3 %; Eosinophils # (auto) 0.18 K/uL (0.00-0.50); Eosinophils % (auto) 1.8 %; Hematocrit (blood only) 37.1 % (37.0-47.0); Hemoglobin 11.8 g/dl (12.0-16.0); Immature Granulocytes # (auto) 0.07 K/uL (0.01-0.20); Immature Granulocytes % (auto) 0.7 %; Lymphocytes # (auto) 1.96 K/uL (1.20-3.40); Lymphocytes % (auto) 19.7 %; Mean Corpuscular Hemoglobin 30.4 pg (25.0-34.0); Mean Corpuscular Hgb Conc 31.8 g/dL (32.0-36.0); Mean Corpuscular Volume 95.6 fL (80.0-100.0); Mean Platelet Volume 10.2 fL (9.4-12.4); Monocytes # (auto) 0.42 K/uL (0.11-0.59); Monocytes % (auto) 4.2 %; Neutrophils # (auto) 7.27 K/uL (1.40-6.50); Neutrophils % (auto) 73.3 %; Platelet Count 205 K/uL (130-400); RDW Coefficient of Variation 13.8 % (11.5-14.5); RDW Standard Deviation 48.4 fL (36.4-46.3); Red Blood Count 3.88 M/uL (4.20-5.40); White Blood Count 9.93 K/ul (4.8-10.8)
[2023-07-03 08:22] LABS: Albumin Level 3.2 gm/dl (3.4-5.0); BUN Creatinine Ratio 24.6 (10-20); Bilirubin Direct 0.1 mg/dl (0-0.2); Bilirubin,Total 0.3 mg/dl (0.2-1.0); Calcium 9.1 mg/dl (8.6-10.3); Creatinine Clr Calc Pharmacy 87.2 ml/min; Est GFR (African American) 105.7 ml/min; Est GFR (Non-African American) 91.2 ml/min; Magnesium 1.7 mg/dl (1.7-2.4); Potassium 4.8 mmol/L (3.5-5.1)
--- NOTE | 2023-07-03 14:01 | Pharmacy Report ---
Pharmacy PK ABX Note - Date of Service July 03, 2023 - Assessment and Plan Assessment 07/03: Renal function continues to improve so level ordered this afternoon to access clearance. Clearance greater than expected, will increase frequency due to increased clearance. 07/02: Vancomycin day 2: Reviewed vancomycin trough, level predicting slightly low, will increase dose slightly for a predicted AUC/FRED of 483mg/L.hr with 92% probability. 07/01: 73 year old F receiving vancomycin/zosyn for treatment of pneumonia. Pertinent microbiologic data includes: MRSA nasal swab pending, blood cultures, urine culture pending. Leukocytosis on admission downtrending, afebrile. Chest XRay with right basilar consolidation consistent with a pneumonia. Plan Vancomycin * Maintenance dose: increase to vancomycin 1500 mg IV every 12 hours * Regimen is predicted to achieve target AUC/FRED of 400-600 mg/L.hr * Random level for 07/05/23 @ 2886 Pharmacy will continue to follow and will adjust dose/frequency as necessary. Thank you. Pharmacy has transitioned to AUC monitoring for vancomycin. AUC/FRED is the preferred PK/PD target and is associated with decreased risk of nephrotoxicity compared to traditional trough targets.
[2023-07-03] MEDS: MAGNESIUM SULFATE / D5W 1 GM/100 ML BAG IV SCH (14:19)
[2023-07-03] MEDS ORDERED: BENZOCAINE 20% (ORAJEL) 11.9 GM TUBE MT PRN (15:19)
--- NOTE | 2023-07-03 15:22 | Hospitalist Progress Note ---
"Date of Service July 03, 2023 Assessment & Plan (1) Sepsis: Plan: Sepsis, POA-with leukocytosis of 22, tachycardia, tachypnea, RLL pneumonia on CXR, elevated procalcitonin, with acute respiratory failure with hypoxia Did have N/V/D prior to admission so could have aspiration PNA Also with possible Urinary tract infection Continues to be improving, leukocytosis resolved, right-sided pleuritic chest pain improving, remains afebrile, tachycardia resolved with IVFs and antibiotics. Now weaned off supplemental oxygen to room air Follow blood cultures-NGTD (note: pt received 1x cefepime prior to blood cultures). UA with mixed WBCs and epis, Ur cx pin point growth-follow -continue Zosyn but discontinue vancomycin -Lactate of 2.8, procal of 7.06 now improving down to 5 -Respiratory BioFire and COVID negative -Continue Duonebs QID, flutter valve, ICS -check sputum culture if can provide sample -Continue Mucinex 1200mg po bid -follow CXR to resolution -May need two-step walk test prior to discharge (2) Pneumonia: Plan: as above (3) Chest pain: Plan: With right sided chest and axillary pain with deep inspiration Concern for PE -Checked CTA Chest -negative for PE but shows RML PNA and bilat dependent consolidation, trace pleural effusion COntinue tylenol, Toradol, morphine prn pain (4) Headache: Plan: related to dehydration, acute illness; she does not drink a lot of caffeine so not likely related to caffeine withdrawal CT head and cervical spine on admission both negative Persists but slowly improving continue tylenol and add Toradol as needed received IVFs Add melatonin 3 mg at bedtime for improved sleep (5) Nausea vomiting and diarrhea: Plan: Nausea/Vomiting/Diarrhea-now resolved -Stool BioFire ordered but not collected as diarrhea resolved (6) Hypomagnesemia: Plan: Hypomagnesemia, Hyponatremia, hypokalemia -Mag of 1.0 on arrival, received IV mag replacement and now level is low normal- give 2 more grams of IV magnesium which may help with headache as well For hyponatremia--dcd HCTZ, gave further IVFs-now stop as Na+ normal For hypokalemia-replaced with po KCl and now normal-holding HCTZ (7) Diabetes: Plan: Type 2 Diabetes Mellitus -Holding home glipizide, metformin -Sliding scale insulin ordered -HgbA1C well controlled at 7.3% (8) Neurogenic claudication due to lumbar spinal stenosis: Plan: Lumbosacral Radiculopathy | S/P Lumbar Fusion -Intrathecal infusion pump in place -Continue home Gabapentin, Duloxetine (9) Hypertension: Plan: BPs controlled Continue Amlodipine, Losartan holding HCTZ for electrolyte abnormalities (10) Hyperlipidemia: Plan: -Continue atorvastatin Plan Dispo-improving, continued stay PCU/tele, PT/OT evals but likely dc to home tomorrow VTE Prophylaxis: Lovenox Code Status: Full Code Admission and Anticipated Discharge Date Admission Date: July 01, 2023 Anticipated date of discharge: 07/04/23 Subjective Patient still complains of headache that is intermittent. Right-sided chest pain is continuing to improve. Coughing but not bringing up sputum. No bowel movement since admission but had a lot of diarrhea prior to that. She is having pain in her bottom gums from her dentures and requests Orajel. She is also having a lot of trouble sleeping at night because of all the interruptions. Telemetry with normal sinus rhythm, PACs, rates in the 70s to 80s Physical Exam Constitutional: WD/WN, vitals as above Neck: trachea midline, no thyromegaly Respiratory: normal respiratory effort; no cough Auscultation: + crackles (right middle and lower lung villanueva much improved); no rhonchi and no wheezes Cardiovascular: RRR, no murmur, no edema Chest (Breasts): Chest: normal inspection of chest Gastrointestinal (Abdomen): normal bowel sounds, soft, nontender, no hepatosplenomegaly Musculoskeletal: Extremities: extremities normal to inspection; no cyanosis and no clubbing Skin: no rashes, warm and dry Neurologic: moves all extremities and awake; no focal motor deficits Psychiatric: A+Ox3, euthymic affect Lymphatic: no lymphedema Results & Data Results & Data Vital Signs (Past 12 Hours) Vital Signs Temp Pulse Resp BP BP Pulse Ox O2 Del Method 07/03/23 15:19 36.3 C L 76 17 173/83 H 93 Room Air 07/03/23 11:23 77 20 89 L Room Air 07/03/23 11:00 36.5 C 77 17 154/79 H 91 Room Air 07/03/23 07:27 74 20 96 Nasal Cannula 07/03/23 07:00 36.6 C 75 17 156/95 H 95 Nasal Cannula O2 Flow Rate 07/03/23 15:19 07/03/23 11:23 07/03/23 11:00 07/03/23 07:27 2 07/03/23 07:00 2 Laboratory Results CBC, BMP, LFTs, urine culture and blood cultures reviewed, magnesium reviewed PG Care Time/CCT Total # of Minutes Spent Total Time Spent with Patient: Total time spent is greater than 50% in coordination of care (as documented) at patient's floor/unit and/or counseling patient: Coding Level of Care Code 65390 SUB INP/OBS CARE 2/35MIN Diagnoses Sepsis A41.9 Pneumonia J18.9 Chest pain R07.9 Chest pain type: unspecified Headache R51.9 Nausea vomiting and diarrhea R11.2; R19.7 Hypomagnesemia E83.42 Type 2 diabetes mellitus without complication, without long-term current use of insulin E11.9 Diabetes mellitus complication status: without complication Diabetes mellitus shelter insulin use: without exterminator helper use Diabetes mellitus type: type 2 Neurogenic claudication due to lumbar spinal stenosis M48.062 Essential hypertension I10 Hypertension type: essential hypertension Hyperlipidemia, unspecified hyperlipidemia type E78.5 Hyperlipidemia type: unspecified (3) Chest pain Chest pain type: unspecified Qualified Code(s): R07.9 - Chest pain, unspecified (7) Diabetes Diabetes mellitus complication status: without complication Diabetes mellitus shelter insulin use: without exterminator helper use Diabetes mellitus type: type 2 Qualified Code(s): E11.9 - Type 2 diabetes mellitus without complications (9) Hypertension Hypertension type: essential hypertension Qualified Code(s): I10 - Essential (primary) hypertension (10) Hyperlipidemia Hyperlipidemia type: unspecified Qualified Code(s): E78.5 - Hyperlipidemia, unspecified"
[2023-07-03] MEDS: KETOROLAC TROMETHAMINE 15 MG/ML VIAL IV ONE (16:53)
[2023-07-03] MEDS ORDERED: VANCOMYCIN HCL 1,500 MG in SODIUM CHLORIDE 0.9% 500 ML IV SCH (17:00)
[2023-07-03] MEDS: MELATONIN 3 MG TAB PO SCH (21:23)
[2023-07-04] MEDS: POLYETHYLENE (MIRALAX) 17 GM PACK PO PRN (04:07)
[2023-07-04] MEDS: KETOROLAC TROMETHAMINE 15 MG/ML VIAL IV PRN (04:17)
[2023-07-04] MEDS: MoRPHine SULFATE 2 MG/ML CARP IV PRN (05:51)
[2023-07-04 06:35] LABS: Basophils # (auto) 0.03 K/uL (0.00-0.20); Basophils % (auto) 0.5 %; Eosinophils % (auto) 3.4 %; Hematocrit (blood only) 38.2 % (37.0-47.0); Hemoglobin 12.7 g/dl (12.0-16.0); Immature Granulocytes # (auto) 0.03 K/uL (0.01-0.20); Immature Granulocytes % (auto) 0.5 %; Lymphocytes # (auto) 1.94 K/uL (1.20-3.40); Lymphocytes % (auto) 33.4 %; Mean Corpuscular Hemoglobin 30.8 pg (25.0-34.0); Mean Corpuscular Hgb Conc 33.2 g/dL (32.0-36.0); Mean Corpuscular Volume 92.5 fL (80.0-100.0); Mean Platelet Volume 10.3 fL (9.4-12.4); Monocytes # (auto) 0.44 K/uL (0.11-0.59); Monocytes % (auto) 7.6 %; Neutrophils # (auto) 3.16 K/uL (1.40-6.50); Neutrophils % (auto) 54.6 %; Platelet Count 237 K/uL (130-400); RDW Coefficient of Variation 13.4 % (11.5-14.5); RDW Standard Deviation 45.4 fL (36.4-46.3); Red Blood Count 4.13 M/uL (4.20-5.40)
[2023-07-04 07:10] LABS: BUN Creatinine Ratio 17.2 (10-20); Calcium 9.9 mg/dl (8.6-10.3); Creatinine Clr Calc Pharmacy 83.3 ml/min; Est GFR (African American) 104.1 ml/min; Est GFR (Non-African American) 89.8 ml/min; Magnesium 1.6 mg/dl (1.7-2.4); Potassium 4.5 mmol/L (3.5-5.1)
[2023-07-04] MEDS: PROCHLORPERAZINE 10 MG in SYRINGE 8 ML IV ONE (07:22)
[2023-07-04] MEDS: LOSARTAN POTASSIUM 50 MG TAB PO SCH (09:09)
[2023-07-04] MEDS: DOXYCYCLINE HYCLATE 100 MG CAP PO SCH (09:10)
[2023-07-04] MEDS: MAGNESIUM SULFATE / D5W 1 GM/100 ML BAG IV SCH (09:26)
[2023-07-04 10:37] LABS: Babesia microti DNA Not Detected (Not Detected)
--- NOTE | 2023-07-04 16:07 | Discharge Summary ---
"Discharge Summary Date of Service July 04, 2023 Notes For Next Care Provider Needs follow-up chest x-ray in 4 to 6 weeks to ensure resolution of pneumonia Medication Changes From Visit Doxycycline 100 Mg p.o. twice daily x 4 more days Augmentin 875 Mg p.o. twice daily x 4 more days Magnesium oxide 250 Mg p.o. at bedtime Admission HPI Per Admitting Provider Rosa Elizabeth is a 73 year-old female with a PMH of STEPHEN, lumbar spinal stenosis, s/p placement of implantable intrathecal infusion pump and lumbar fusion, restless leg syndrome, and type 2 diabetes who presented to the Ed after intense neck pain as well as n/v/d. She notes that she began experiencing right sided neck pain around 2 days ago which later lead to headache (pain was generalized, no localization of headache). She notes that the morning after her neck pain/headache started, she began to have episodes of nausea as well as vomiting and diarrhea. She denies any other family members with similar symptoms. She denies any blood or dark/black color in her emesis or stool. Notes it has now been over 24 hours since her last episode of vomiting and diarrhea, but has only had small volumes of liquids and some toast in the past few days. Currently she still has pain at her right posterior neck as well as her upper back, worse with movement. She also feels a bit short of breath, is currently on supplemental oxygen at 4L. She does not have any current chest pain, but feels weak and has generalized discomfort. Denies dizziness or lightheadedness at present. She denies any recent medication changes or other symptoms she was noticed. ED Course: -2L NSS boluses -IV Tylenol, 2g Mag Sulfate -!x Cefepime -CT A/P, CXR, KUB Principal Dx & Hospital Course #1 = Principal Diagnosis (1) Sepsis: Sepsis, POA-with leukocytosis of 22, tachycardia, tachypnea, RLL pneumonia on CXR, elevated procalcitonin, with acute respiratory failure with hypoxia Did have N/V/D prior to admission so could have aspiration PNA Also with possible Urinary tract infection later ruled out Significantly improved, leukocytosis resolved, right-sided pleuritic chest pain almost resolved, remains afebrile, tachycardia resolved with IVFs and antibiotic s. Now weaned off supplemental oxygen to room air and passed a two-step walk test prior to discharge Follow blood cultures-remain NGTD (note: pt received 1x cefepime prior to blood cultures). UA with mixed WBCs and epis, Ur cx with corynebacterium which is a skin contaminant -Received Zosyn and 2 days of vancomycin which was discontinued after MRSA nasal swab returned negative-discharged home to complete of course of Augmentin and doxycycline for 4 more days -Lactate of 2.8, procal of 7.06 now improving down to 2-much improved -Respiratory BioFire and COVID negative -Continue albuterol nebs QID at home-refill provided -Continue flutter valve, ICS -check sputum culture if can provide sample-was never able to give a sample -Continue Mucinex 1200mg po bid -follow CXR to resolution as an outpatient in 4 to 6 weeks -Right-sided pleuritic chest pain much improved (2) Pneumonia: as above (3) Chest pain: With right sided chest and axillary pain with deep inspiration on admission With initial concern for PE -Checked CTA Chest -negative for PE but shows RML PNA and bilat dependent consolidation, trace pleural effusion Received tylenol, Toradol, morphine prn pain (4) Headache: related to dehydration, acute illness; she does not drink a lot of caffeine so not likely related to caffeine withdrawal CT head and cervical spine on admission both negative Received IV fluids and Tylenol, Toradol Did receive IV morphine and Compazine on the morning of discharge-the Compazine made her feel very foggy and disoriented but after the combination, her headache went completely away for the first time in 4 days continue tylenol as needed after discharge (5) Nausea vomiting and diarrhea: Nausea/Vomiting/Diarrhea-now resolved -Stool BioFire ordered but not collected as diarrhea resolved (6) Hypomagnesemia: Hypomagnesemia, Hyponatremia, hypokalemia -Mag of 1.0 on arrival, received IV mag replacement on multiple occasions- continue magnesium oxide 250 Mg p.o. at bedtime on discharge hyponatremia secondary to hypovolemia- gave IVFs and normalized For hypokalemia-replaced with po KCl and now normal (7) Diabetes: Type 2 Diabetes Mellitus -Holding home glipizide, metformin but can resume on discharge -Was treated with basal bolus insulin while here at low doses -HgbA1C well controlled at 7.3% (8) Neurogenic claudication due to lumbar spinal stenosis: Lumbosacral Radiculopathy | S/P Lumbar Fusion -Intrathecal infusion pump in place -Continue home Gabapentin, Duloxetine (9) Hypertension: BPs controlled except elevated on the morning of discharge as she had not been receiving her losartan-this was restarted and blood pressures improved Continue Amlodipine, Losartan on discharge (10) Hyperlipidemia: -Continue atorvastatin Plan Dispo-much improved, stable for discharge to home VTE Prophylaxis: Lovenox Code Status: Full Code Discussed her care with her at the bedside on the day of discharge Discharge Exam Constitutional WD/WN, vitals as above Neck trachea midline, no thyromegaly Respiratory normal respiratory effort; no cough Auscultation: + crackles (right middle and lower lung villanueva much improved); no rhonchi and no wheezes Cardiovascular RRR, no murmur, no edema Chest (Breasts) Chest: normal inspection of chest Gastrointestinal (Abdomen) normal bowel sounds, soft, nontender, no hepatosplenomegaly Musculoskeletal Extremities: extremities normal to inspection; no cyanosis and no clubbing Skin no rashes, warm and dry Neurologic moves all extremities and awake; no focal motor deficits Psychiatric A+Ox3, euthymic affect Lymphatic no lymphedema Updated Medication List Medication Instructions Recorded Confirmed Type amlodipine 5 mg tablet 5 mg PO QAM 02/09/18 07/01/23 History albuterol sulfate 90 mcg/actuation 2 puffs inhalation Q4H PRN 08/08/19 07/01/23 History aerosol inhaler shortness of breath or wheezing atorvastatin 40 mg tablet 40 mg PO QAM 06/05/20 07/01/23 History glipizide 2.5 mg tablet, extended 2.5 mg PO BID 06/05/20 07/01/23 History release 24 hr metformin 1,000 mg tablet 1,000 mg PO BID 06/05/20 07/01/23 History pantoprazole 40 mg tablet,delayed 40 mg PO QAM 06/05/20 07/01/23 History release gabapentin 300 mg capsule 900 mg PO TID 08/07/20 07/01/23 History pramipexole 1 mg tablet (Mirapex) 1 mg PO BID 11/15/20 07/01/23 History multivitamin 1 tab PO QAM 08/28/22 07/01/23 History duloxetine 60 mg capsule,delayed 60 mg PO BID #180 caps 10/30/22 07/01/23 Rx release (Cymbalta) losartan 50 mg tablet 50 mg PO DAILY 07/01/23 07/01/23 History psyllium husk (with sugar) 3.4 2 tbsp PO QAM 07/01/23 07/01/23 History gram/7 gram oral powder (Metamucil (with sugar)) triamcinolone acetonide 0.1 % 1 applic topical DAILY PRN dry legs 07/01/23 07/01/23 History topical cream acetaminophen 325 mg tablet 650 mg (2 x 325 mg) PO Q4H PRN 07/04/23 Rx pain #30 tabs albuterol sulfate 2.5 mg/3 mL 2.5 mg (3 mL) inhalation Q6H PRN 07/04/23 Rx (0.083 %) solution for nebulization Shortness Of Breath #180 mL amoxicillin 875 mg-potassium 1 tab PO BID #9 tabs 07/04/23 Rx clavulanate 125 mg tablet doxycycline hyclate 100 mg capsule 100 mg PO BID #9 caps 07/04/23 Rx guaifenesin 600 mg tablet, 1,200 mg (2 x 600 mg) PO Q12 #60 07/04/23 Rx extended release 12 hr (Mucinex) tabs magnesium 250 mg tablet 250 mg PO HS #30 tabs 07/04/23 Rx Hospital Stay Data Consultations 07/01/23 00:10 ED Decision to Admit Stat Diagnostic Imagining Performed 06/30/23 18:43 CT cervical spine wo con Stat CT head/brain wo con Stat 06/30/23 22:50 CT abd pelvis IV con only Stat 07/01/23 12:34 CT angio chest PE protocol Stat Pending Results Patient Have Any Pending Studies at Discharge: Yes (Final blood culture results- no growth to date) Discharge Instructions Given to Patient (Per Discharging Provider) Please finish out 4 more days of Augmentin and doxycycline twice a day for your pneumonia. You can continue breathing treatments with the nebulizer 3-4 times a day. You can take acetaminophen as needed for your headache but hopefully this has resolved. When you first came in, you were dehydrated and had low magnesium, sodium, and low potassium levels. This was all replaced. You should continue on a magnesium pill at bedtime. Total Time Total Time Spent Total Time Spent (In Minutes): 45 minutes Coding Level of Care Code 83905 INP/OBS DISCH >30 MIN Diagnoses Sepsis A41.9 Pneumonia J18.9 Chest pain R07.9 Chest pain type: unspecified Headache R51.9 Nausea vomiting and diarrhea R11.2; R19.7 Hypomagnesemia E83.42 Type 2 diabetes mellitus without complication, without long-term current use of insulin E11.9 Diabetes mellitus type: type 2 Diabetes mellitus fpc insulin use: without terminal worker use Diabetes mellitus complication status: without complication Neurogenic claudication due to lumbar spinal stenosis M48.062 Essential hypertension I10 Hypertension type: essential hypertension Hyperlipidemia, unspecified hyperlipidemia type E78.5 Hyperlipidemia type: unspecified"
[2023-07-05] MEDS ORDERED: VANCOMYCIN LEVEL ONE (04:00)
--- NOTE | 2023-07-10 08:41 | Coding Query ---
CODING QUERY To promote full compliance with coding requirements relating to patient care, provider participation is requested in all cases of human service worker uncertainty. Please assist us with the question(s) below: Coding Question(s): Sepsis POA is documented. Please specify below, in your clinical opinion, the most likely source of Sepsis: (x ) most likely Pneumonia ( ) Other: Please Specify ( ) Unknown likely source Physician's Response(s): Thank you Elena Avila Principal Diagnosis: "that condition established after study, to be chiefly responsible for occasioning the admission of the patient to the hospital for care." Co-Existing Principal Diagnosis: "when two or more diagnoses equally meet the criteria for principal diagnosis as determined by the circumstances of admission, diagnostic work up, and/or therapy provided, and the Alphabetic Index, Tabular List, or another coding guideline does not provide sequencing direction, any one of the diagnoses may be sequenced first." "When the physician has documented what appears to be a current diagnosis in the body of the record, but has not included the diagnosis in the final diagnostic statement, the physician should be asked whether the diagnosis should be added." (Source Coding [facility] 2 QTR90. p3-4) GEOFF
== END 2023-07-04 16:24 | disposition home or self-care (01) | DRG 871 ==
LOC: ED 18:38 → SUATTDRO 07-01 00:15 → EDINP 07-01 00:15 → 2S 07-01 01:31

== ENCOUNTER 2023-09-08 20:34 | Inpatient (IN) ==
[2023-09-08 22:31] LABS: Basophils # (auto) 0.04 K/uL (0.00-0.20); Basophils % (auto) 0.4 %; Eosinophils % (auto) 1.1 %; Hematocrit (blood only) 38.3 % (37.0-47.0); Hemoglobin 12.4 g/dl (12.0-16.0); Immature Granulocytes # (auto) 0.02 K/uL (0.01-0.20); Immature Granulocytes % (auto) 0.2 %; Lymphocytes # (auto) 3.29 K/uL (1.20-3.40); Lymphocytes % (auto) 36.9 %; Mean Corpuscular Hemoglobin 30.1 pg (25.0-34.0); Mean Corpuscular Hgb Conc 32.4 g/dL (32.0-36.0); Monocytes # (auto) 0.83 K/uL (0.11-0.59); Monocytes % (auto) 9.3 %; Neutrophils # (auto) 4.64 K/uL (1.40-6.50); Neutrophils % (auto) 52.1 %; Platelet Count 245 K/uL (130-400); RDW Coefficient of Variation 14.9 % (11.5-14.5); RDW Standard Deviation 50.4 fL (36.4-46.3); Red Blood Count 4.12 M/uL (4.20-5.40); White Blood Count 8.92 K/ul (4.8-10.8)
[2023-09-08 22:50] LABS: Alanine Aminotransferase 16 U/L (7-52); Albumin Globulin Ratio 1.2 (0.9-2); Albumin Level 3.7 gm/dl (3.4-5.0); Alkaline Phosphatase 74 U/L (34-104); Anion Gap 9 (3-11); Aspartate Aminotransferase 21 U/L (13-39); BUN Creatinine Ratio 13.2 (10-20); Bilirubin,Total 0.5 mg/dl (0.2-1.0); Blood Urea Nitrogen 10 mg/dl (6-23); Calcium 8.8 mg/dl (8.6-10.3); Carbon Dioxide 28 mmol/L (21-32); Chloride 99 mmol/L (98-107); Est GFR (African American) 91.5 ml/min; Est GFR (Non-African American) 78.9 ml/min; Globulin 3.2 gm/dl (2.5-4.0); Glucose 103 mg/dl (70-99(Fasting)); Potassium 3.9 mmol/L (3.5-5.1); Sodium 136 mmol/L (136-145); Total Protein 6.9 gm/dl (6.0-8.3)
[2023-09-08 23:13] LABS: Adenovirus PCR Not Detected (NotDetected); Bordetella parapertussis PCR Not Detected (NotDetected); Bordetella pertussis PCR Not Detected (NotDetected); Chlamydia pneumoniae PCR Not Detected (NotDetected); Coronavirus 229E PCR Not Detected (NotDetected); Coronavirus CoV-2 (COVID19)PCR Not Detected (NotDetected); Coronavirus HKU1 PCR Not Detected (NotDetected); Coronavirus NL63 PCR Not Detected (NotDetected); Coronavirus OC43PCR Not Detected (NotDetected); Human Metapneumovirus PCR Not Detected (NotDetected); Influenza A PCR Not Detected (NotDetected); Influenza B PCR Not Detected (NotDetected); Mycoplasma pneumoniae PCR Not Detected (NotDetected); Parainfluenza Virus 1 PCR Not Detected (NotDetected); Parainfluenza Virus 2 PCR Not Detected (NotDetected); Parainfluenza Virus 3 PCR Not Detected (NotDetected); Parainfluenza Virus 4 PCR Not Detected (NotDetected); Respiratory Syncytial VirusPCR Not Detected (NotDetected); Rhinovirus/Enterovirus PCR DETECTED (NotDetected)
[2023-09-09 00:06] LABS: Magnesium 1.5 mg/dl (1.7-2.4)
[2023-09-09 00:14] LABS: Troponin I High Sensitivity 6.3 pg/ml (0-14)
[2023-09-09] MEDS: methylPREDNISolone 125 MG/2 ML VIAL ONE (00:23)
[2023-09-09] MEDS: ALBUT/IPRATROP 3MG/0.5MG NEB 3 ML VIAL ONE (00:23)
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
[2023-09-09] MEDS: ALBUT/IPRATROP 3MG/0.5MG NEB 3 ML VIAL NEB STA ×2 (00:43→01:59)
[2023-09-09] MEDS: methylPREDNISolone 125 MG/2 ML VIAL IV STA (00:43)
[2023-09-09 01:30] LABS: Magnesium 1.5 mg/dl (1.7-2.4)
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
[2023-09-09 01:37] LABS: Troponin I High Sensitivity 5.9 pg/ml (0-14)
[2023-09-09] MEDS: MAGNESIUM SULFATE / D5W 1 GM/100 ML BAG IV ONE (02:00)
[2023-09-09] MEDS ORDERED: POLYETHYLENE (MIRALAX) 17 GM PACK PO PRN (02:34)
[2023-09-09] MEDS ORDERED: GLUCOSE 40% GEL 15 GM TUBE PO PRN (02:34)
[2023-09-09] MEDS ORDERED: CARBOHYDRATES FOR HYPOGLYCEMIA PO PRN (02:34)
[2023-09-09] MEDS ORDERED: DEXTROSE 50% 50 ML SYRINGE IV PRN (02:34)
[2023-09-09] MEDS ORDERED: MELATONIN 3 MG TAB PO PRN (02:34)
[2023-09-09] MEDS ORDERED: GLUCOSE 10 TAB/TUBE PO PRN (02:34)
[2023-09-09] MEDS ORDERED: GLUCAGON FOR INJ 1 MG VIAL SQ PRN (02:34)
[2023-09-09] MEDS ORDERED: ACETAMINOPHEN 325 MG TAB PO PRN (02:34)
[2023-09-09] MEDS ORDERED: ONDANSETRON INJ 2 MG/ML 2 ML VIAL IV PRN (02:34)
--- NOTE | 2023-09-09 04:19 | Ultrasound Report ---
Exam(s): US VENOUS RIGHT LOWER EXTREMITY EXAM: US Duplex Right Lower Extremity Veins CLINICAL HISTORY: Reason for exam: RLE swelling, hx of DVT. TECHNIQUE: Real-time duplex ultrasound scan of the right lower extremity veins integrating B-mode two-dimensional vascular structure, Doppler spectral analysis, color flow Doppler imaging and compression. COMPARISON: No relevant prior studies available. FINDINGS: Deep veins: Unremarkable. No DVT in the visualized common femoral, femoral, proximal deep femoral or popliteal veins. The veins demonstrate normal color flow, are normally compressible, with normal phasic flow and/or augmentation response. Superficial veins: Unremarkable. No thrombus in the visualized great saphenous vein. Soft tissues: There is a 3.1 x 2.6 x 6.2 cm David's cyst in the right popliteal fossa. IMPRESSION: No evidence of DVT in the right lower extremity. There is a 3.1 x 2.6 x 6.2 cm David's cyst in the right popliteal fossa. Electronically signed by: Lenny Garcia MD 09/09/23 04:18 AM
[2023-09-09] MEDS ORDERED: ALBUT/IPRATROP 3MG/0.5MG NEB 3 ML VIAL NEB PRN (04:52)
--- OUTSIDE RECORDS SUMMARY | 2023-09-09 06:00 | External Medical Summary | Continuity of Care Document ---
Author Name Unknown Organization [facility] [address] Address [address] [place], [place] [id number] Care Team Providers Care Clinical Pharmacist Name Role Phone Tsering Casper Primary Care Physician [phone] [id number] Date(s): 08/25/23 - 08/25/23 [facility] [address] [facility] [address] [facility] [place], [place] [phone] Encounter Diagnosis Pneumonia, unspecified organism(Final) - Type 2 diabetes mellitus without complications(Final) - Other disorders of electrolyte and fluid balance, not elsewhere classified (Final) - Hypomagnesemia(Final) - Discharge Disposition: Home or Self Care Attending Physician: MD Casper [place] Referring Physician: MD Casper [place] Allergies, Adverse Reactions, Alerts Substance Reaction Severity Status Ceftin vomited with the 500mg dose Active Immunizations Given and Recorded Vaccine Date Status [...] puff, inhaled, q6h, Disp# 18 g, Pharmacy: [id number] Start Date: 03/27/23 Stop Date: 04/26/23 Status: Ordered albuterol 0.083% for nebulization Start: 05/27/22 12:15:00 EST, 3 mL, inhaled, q6h, Disp# 25 each, Refills: 3, PRN: as needed for wheezing, Pharmacy: [id number] Start Date: 05/27/22 Stop Date: 09/24/22 Status: Ordered Amitiza 24 mcg oral capsule Start: 06/05/23 8:58:00 EST, 1 cap, PO, bid, Disp# 180 cap, Refills: 3, Pharmacy: [id number] Start Date: 06/05/23 Stop Date: 05/30/24 Status: Ordered amLODIPine 5 mg oral tablet Start: 09/18/22 8:11:00 EDT, See Instructions, Disp# 90 tab, Refills: 3, TAKE 1 TABLET BY MOUTH DAILY, Pharmacy: [facility] Start Date: 09/18/22 Status: Ordered atorvastatin 40 mg oral tablet Start: 07/02/23 8:28:00 EST, See Instructions, Disp# 90 tab, Refills: 3, TAKE 1 TABLET BY MOUTH DAILY, Pharmacy: [facility] Start Date: 07/02/23 Status: Ordered Cymbalta 60 mg oral delayed release capsule Start: 01/27/23 15:05:00 EDT, 1 cap, PO, bid, Disp# 180 cap, Refills: 3, Pharmacy: [id number] Start Date: 01/27/23 Status: Ordered gabapentin 300 mg oral capsule Start: 06/13/23 8:18:00 EST, See Instructions, Disp# 810 cap, Refills: 0, TAKE 3 CAPSULES BY MOUTH IN THE MORNING, THEN TAKE 3 CAPSULES IN THE AFTERNOON, THEN TAKE 3 CAPSULES AT BEDTIME., Pharmacy: [id number] Start Date: 06/13/23 Status: Ordered glipiZIDE 2.5 mg oral tablet, extended release Start: 06/23/23 9:27:00 EST, 1 tab, PO, bid, Disp# 180 tab, Refills: 3, Pharmacy: [facility] Start Date: 06/23/23 Status: Ordered losartan 50 mg oral tablet Start: 04/18/23 13:15:00 EST, 1 tab, PO, Daily, Disp# 90 tab, Refills: 1, Pharmacy: [id number] Start Date: 04/18/23 Stop Date: 10/15/23 Status: Ordered Metamucil Start: 07/30/23 11:21:00 EST, 2 teaspoons mixed with water daily Start Date: 07/30/23 Status: Ordered metFORMIN 1000 mg oral tablet [...] daily, Note to Pharmacy: E11.43, E08.649, Pharmacy: [id number] Start Date: 06/24/22 Status: Ordered One Touch Ultra Test Strips 100 ct Start: 02/29/20 21:16:00 EDT, See Instructions, Disp# 100 each, Refills: 3, test blood sugars bid, diagnosis: E11.43, Pharmacy: [id number] Start Date: 02/29/20 Status: Ordered One Touch Ultrasoft (28G) Lancets Start: 02/29/20 21:16:00 EDT, See Instructions, Disp# 100 each, Refills: 3, test blood sugars bid, diagnosis: E11.43, Pharmacy: [id number] Start Date: 02/29/20 Status: Ordered pantoprazole 40 mg oral delayed release tablet Start: 05/29/23 14:09:00 EST, See Instructions, Disp# 90 tab, Refills: 2, TAKE 1 TABLET BY MOUTH ONCE DAILY, Pharmacy: [facility] Start Date: 05/29/23 Status: Ordered pramipexole 0.25 mg oral tablet Start: 01/27/23 15:05:00 EDT, 1 tab, PO, tid, Disp# 270 tab, Refills: 3, Pharmacy: [facility] Start Date: 01/27/23 Status: Ordered triamcinolone 0.1% topical cream Start: 05/06/23 7:57:00 EST, 1 appl, topical, bid, Disp# 454 g, Refills: 0, Stop when dermatitis clears, Pharmacy: [id number] Start Date: 05/06/23 Status: Ordered Problem List Condition Confirmation Course Effective Dates [...] Unspecified Confirmed Active Weight disorder Confirmed Active Procedures Procedure Date Related Diagnosis Body Site [...] 05/08/16 Completed Cervical epidural steroid in jection [id number] 01/09/16 Completed PFT - Pulmonary function tests [...] 03/08/13 Completed Mammogram 67 08/19/12 Completed Appendectomy 2013 Completed PAP 12/03/11 Completed Unilateral Left Diagnostic [...] above the antecubital fossa as above 24[facility] Impression: 1. Nondisplaced manubrium fracture 25[facility] Impression: 1. No acute fractures 26There [...] 55Negative for intraepithelial lesion or malignancy 56[facility] 57Maximum heart rate was 144 bpm. [...] L3-L4 level. 66for flank pain and hematuria 67[facility] 68[facility] 69Dr. Perez 70[facility] 71[facility] Breast [place] 72GMG 73GMG 74[facility] Breast [facility] 75GMG 76Dr. Perez [facility] 77GMG 78[facility] Dr. Carrion [phone] 80Impression: No DVT wiithin the left lower extremity. Results Laboratory List Name Date Complete Blood Count w Differential (CBC ,DIFFH) 08/25/23 Comprehensive Metabolic Panel (COMP META B PANEL) 08/25/23 Hemoglobin A1C (HEMOGLOBIN, A1C) 08/25/23 Magnesium Level (MAGNESIUM) 08/25/23 Most recent to oldest [Reference Range]: 1 eGFR CKD-EPI [>60 mL/min/1.73 m2] >90 mL /min/1.73 m2 1 (08/25/23 8:13 AM) Estimated Average Glucose 157 mg/dL (08/25/23 8:13 AM) Estimated CrCl 89.45 mL/min (08/25/23 9:00 AM) MPV [9.0-12.2 fL] 9.9 fL (08/25/23 8:13 AM) Immature Gran% 0.1 % (08/25/23 8:13 AM) Neut% 48.7 % (08/25/23 8:13 AM) Lymph% 43.9 % (08/25/23 8:13 AM) Converse% 5.7 % (08/25/23 8:13 AM) Baso% 0.2 % (08/25/23 8:13 AM) Eos% 1.4 % (08/25/23 8:13 AM) Immat Gran, Abs [0-0.4 K/uL] 0.01 K/uL 2 (08/25/23 8:13 AM) Neut, Abs [2.0-7.7 K/uL] 3.95 K/uL (08/25/23 8:13 AM) Lymph, Abs [1.0-3.4 K/uL] 3.56 K/uL *HI* (08/25/23 8:13 AM) Converse, Abs [0-1.0 K/uL] 0.46 K/uL (08/25/23 8:13 AM) Baso, Abs [0-0.1 K/uL] 0.02 K/uL (08/25/23 8:13 AM) Eos, Abs [0-0.5 K/uL] 0.11 K/uL (08/25/23 8:13 AM) Type of Diff: AUTO *Unknown* (08/25/23 8:13 AM) RDW [11.5-14.2 %] 14.6 % *HI* (08/25/23 8:13 AM) Anion Gap [5-14 mmol/L] 6 mmol/L (08/25/23 8:13 AM) Alb [3.5-5.0 g/dL] 4.1 g/dL (08/25/23 8:13 AM) Alk Phos [38-126 unit/L] 81 unit/L (08/25/23 8:13 AM) ALT [<35 unit/L] 24 unit/L (08/25/23 8:13 AM) AST [15-46 unit/L] 25 unit/L (08/25/23 8:13 AM) BUN [7-20 mg/dL] 13 mg/dL (08/25/23 8:13 AM) Ca [8.4-10.2 mg/dL] 9.5 mg/dL (08/25/23 8:13 AM) Cl- [96-107 mmol/L] 104 mmol/L (08/25/23 8:13 AM) HCO3 [22-30 mmol/L] 31 mmol/L *HI* (08/25/23 8:13 AM) Cret [0.60-1.00 mg/dL] 0.60 mg/dL (08/25/23 8:13 AM) HbA1c [<5.7 %] 7.1 % 3 *HI* (08/25/23 8:13 AM) Glu [74-106 mg/dL] 89 mg/dL (08/25/23 8:13 AM) Hct [35-44 %] 41.4 % (08/25/23 8:13 AM) Hgb [11.7-15.0 g/dL] 13.5 g/dL (08/25/23 8:13 AM) K [3.5-5.1 mmol/L] 4.2 mmol/L (08/25/23 8:13 AM) MCH [28-33 pg] 30.3 pg (08/25/23 8:13 AM) MCHC [32-36 g/dL] 32.6 g/dL (08/25/23 8:13 AM) MCV [81-96 fL] 93.0 fL (08/25/23 8:13 AM) Mg [1.6-2.3 mg/dL] 1.5 mg/dL 4 *LOW* (08/25/23 8:13 AM) Na [137-145 mmol/L] 141 mmol/L (08/25/23 8:13 AM) Plts [150-350 K/uL] 227 K/uL (08/25/23 8:13 AM) RBC [3.90-5.00 M/uL] 4.45 M/uL (08/25/23 8:13 AM) T Bili [0.2-1.3 mg/dL] 0.8 mg/dL (08/25/23 8:13 AM) Prot [6.3-8.2 g/dL] 7.6 g/dL (08/25/23 8:13 AM) WBC [4.0-10.4 K/uL] 8.11 K/uL (08/25/23 8:13 AM) 1Result Comment: Testing Performed By: Dept of Pathology [facility] William Fuller, [address] [place] [id number] 2Result Comment: Testing Performed By: [facility], [address] [place] [id number] 3Result Comment: ADA Recommended [place] Reference Range: Normal: <5.7% Prediabetes: 5.7-6.4% Diabetes: >6.4% 4Result Comment: Testing Performed By: [facility], [address] [place] [id number] Social History Social History Type Response Smoking Status Never smoked cigaret denise Sex Female Patient Care team information Care Team Personnel Name: SUMMER Spears Tara Position: Nurse Pract - Family Med Member Role: Lifetime Relationship Address: Address: [address] [place] [address] Name: MD [place], [place] Position: Physician - Family Med Member Role: Primary Care Provider Address: Address: [address] [place] [address] Care Team Related Persons Name: JORGE PORTILLO Address: home [address] [phone]
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
[2023-09-09] MEDS: Patient's HEIGHT &/or WEIGHT Needed STA (06:15)
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
--- NOTE | 2023-09-09 07:38 | XRay Report ---
XR chest 1V not portable HISTORY: 73 years-old Female illness . Shortness of breath COMPARISON: 06/30/2023 TECHNIQUE: PA view of the chest FINDINGS: Cardiomediastinal and hilar silhouettes are within normal limits. Subsegmental mild bibasilar atelect asis. No pneumothorax, pleural effusion or pulmonary edema. Bones appear grossly intact. Sigmoidal th oracolumbar scoliosis with extensive fusion hardware. IMPRESSION: 1. Cardiomegaly without acute process. 2. Bibasilar densities suggest atelectasis. ACT 112: Negative or not required by law. The above report was generated using voice recognition software. It may contain grammatical, syntax o r spelling errors. Electronically signed by: Colin Parrish M.D. 09/09/2023 7:36 AM
[2023-09-09] MEDS: ENOXAPARIN INJ 40 MG/0.4 ML SYR SQ SCH (08:33)
[2023-09-09] MEDS: GABAPENTIN 300 MG CAP PO SCH (08:33)
[2023-09-09] MEDS: PSYLLIUM or GUAR GUM FIBER 4GM PACKET PO SCH (08:33)
[2023-09-09] MEDS: methylPREDNISolone 40 MG in SYRINGE 0 ML IV SCH (08:33)
[2023-09-09] MEDS: PANTOprazole 40 MG TAB PO SCH (08:33)
[2023-09-09] MEDS: PRAMIPEXOLE DIHYDROCHLO 0.25 MG TAB PO SCH (08:33)
[2023-09-09] MEDS: ATORVASTATIN 40 MG TAB PO SCH (08:33)
[2023-09-09] MEDS: amLODIPine BESYLATE 5 MG TAB PO SCH (08:34)
[2023-09-09] MEDS: guaiFENesin 600 MG TABCR PO SCH (08:34)
[2023-09-09] MEDS: DULoxetine HCL 60 MG CAP PO SCH (08:34)
[2023-09-09] MEDS: LOSARTAN POTASSIUM 50 MG TAB PO SCH (08:34)
[2023-09-09] MEDS ORDERED: methylPREDNISolone 10 mg/mL (For Ped Dose < 7mg) IV SCH (09:00)
[2023-09-09] MEDS: INSULIN ASPART PER UNIT CHARGE SC SCH (09:57)
[2023-09-09] MEDS: LANTUS PER UNIT CHARGE SQ SCH (09:57)
[2023-09-09] MEDS: MAGNESIUM OXIDE 400 MG TAB PO SCH (21:13)
[2023-09-10 07:40] LABS: Hematocrit (blood only) 36.8 % (37.0-47.0); Hemoglobin 11.9 g/dl (12.0-16.0); Mean Corpuscular Hemoglobin 29.9 pg (25.0-34.0); Mean Corpuscular Hgb Conc 32.3 g/dL (32.0-36.0); Mean Corpuscular Volume 92.5 fL (80.0-100.0); Platelet Count 297 K/uL (130-400); RDW Coefficient of Variation 14.6 % (11.5-14.5); RDW Standard Deviation 49.9 fL (36.4-46.3); Red Blood Count 3.98 M/uL (4.20-5.40); White Blood Count 12.39 K/ul (4.8-10.8)
[2023-09-10 08:19] LABS: BUN Creatinine Ratio 24.6 (10-20); Calcium 9.1 mg/dl (8.6-10.3); Est GFR (African American) 105.7 ml/min; Est GFR (Non-African American) 91.2 ml/min; Magnesium 1.8 mg/dl (1.7-2.4); Potassium 3.9 mmol/L (3.5-5.1)
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
--- NOTE | 2023-09-10 13:26 | Communication Note ---
Date of Service: September 10, 2023 By CMS guidelines, a determination that the admission or continued stay is not medically necessary has been made by a member of the UR committee and a phys ician for this hospital stay, therefore a Code 44 will be completed and the Inpatient admission will be changed to outpatient.
--- NOTE | 2023-09-10 13:27 | Communication Note ---
Date of Service: September 10, 2023 By CMS guidelines, a determination that the admission or continued stay is not medically necessary has been made by a member of the UR committee and a physi celso for this hospital stay, therefore a Code 44 will be completed and the Inpatient admission will be changed to outpatient.
--- NOTE | 2023-09-10 19:14 | Billing Data ---
Date of Service September 10, 2023 Coding Level of Care Code 88714 IN/OBS DISCH 30 MIN/LESS
--- NOTE | 2023-09-11 19:51 | Billing Data ---
Date of Service September 09, 2023 Coding Level of Care Code 29248 INT INP/OBS CARE
--- NOTE | 2023-09-11 22:44 | Electrocardiogram Report ---
Test Reason : Blood Pressure : / mmHG Vent. Rate : 088 BPM Atrial Rate : 088 BPM P-R Int : 162 ms QRS Dur : 138 ms QT Int : 394 ms P-R-T Axes : 047 -62 016 degrees QTc Int : 476 ms Normal sinus rhythm Left axis deviation Right bundle branch block Minimal voltage criteria for LVH, may be normal variant Abnormal ECG When compared with ECG of 30-JUN-2023 19:04, Borderline criteria for Lateral infarct are no longer Present Confirmed by Justus Aguirre ([id number]) on 09/11/2023 10:44:42 PM Referred By: REFERRED SELF Confirmed By:Justus Aguirre
== END 2023-09-10 14:20 | disposition home or self-care (01) | DRG 203 ==
LOC: ED 20:34 → SUATTDRO 09-09 02:34 → EDINP 09-09 02:34 → 3W 09-09 04:52
DX: G89.29 Other chronic pain; R22.41 Localized swelling, mass and lump, right lower limb; Z79.84 Long term (current) use of oral hypoglycemic drugs; Z79.899 Other long term (current) drug therapy; Z88.1 Allergy status to other antibiotic agents; Z83.3 Family history of diabetes mellitus; J20.6 Acute bronchitis due to rhinovirus; M54.50 Low back pain, unspecified; Z86.718 Personal history of other venous thrombosis and embolism; Z11.52 Encounter for screening for COVID-19; Z88.8 Allergy status to other drugs, medicaments and biological substances; E78.5 Hyperlipidemia, unspecified; E11.42 Type 2 diabetes mellitus with diabetic polyneuropathy; I10 Essential (primary) hypertension; Z82.49 Family history of ischemic heart disease and other diseases of the circulatory system; Z86.16 Personal history of COVID-19; E83.42 Hypomagnesemia; G25.81 Restless legs syndrome

== ENCOUNTER 2023-10-30 11:06 | Inpatient (IN) ==
--- NOTE | 2023-10-30 11:17 | ED Triage Note ---
Date of Service October 30, 2023 Provider in Triage Author: Devi Hoang History of Present Illness This patient was briefly evaluated while in triage. An abbreviated physical exam was performed. This patient is a 73-year-old Female who presents to the ED for evaluation of stroke like symptoms according to ems. Family states she had facial droop with slurred speech and left sided headache. Upon ems arrival pt has no symptoms. PT states "sick for a couple days." Confusion and headache. Physical Exam Initial orders for labs and / or imaging were placed and patient was placed in the waiting area until a bed is available. Please see further documentation for the full ED course.
--- NOTE | 2023-10-30 11:55 | Emergency Department Note ---
Impression & Plan Pneumonia, Hypoxia, Headache, AMS (altered mental status), Elevated troponin I level, Cerebrovascular disease ED Provider Note NAME: BRISEYDA PORTILLO AGE: 73 SEX: F : 1950 ARRIVES VIA: Ambulance INFORMANT: Patient, ED PROVIDER(S): Augustine Candelaria DO CHIEF COMPLAINT: Headache HPI: The patient is a 73-year-old female who presented to the emergency department for multiple complaints. The patient has been experiencing headache over the last 3 days. She states this began on Friday of this week but she does not remember exactly what time. She describes it as the worst headache of her life. She also has been noticing some back pain and chest pain on the left side. She has had weakness and shortness of breath. The patient was not seen by her family doctor. Her symptoms did not improve so she came to the emergency department for further evaluation. The patient does take she chronic pain medication. Not changed her dose. ROS: See above HPI for pertinent positives & negatives. A total of 10 systems reviewed and were otherwise negative. PAST MEDICAL HISTORY: See Below PAST SURGICAL HISTORY: See Below FAMILY HISTORY: See Below SOCIAL HISTORY: See Below HOME MEDICATIONS: See Below ALLERGIES: See Below VITALS: See Below PHYSICAL EXAMINATION: GENERAL: The patient is listless and slow to respond to questions. EYES: The conjunctivae are clear. The pupils are round and reactive. EARS, NOSE, MOUTH AND THROAT: The nose is without any evidence of any deformity NECK: The neck is nontender and supple. RESPIRATORY: Normal respiratory effort is noted there is no evidence of wheezing rhonchi or rales CARDIOVASCULAR: Regular rate and rhythm noted there no murmurs rubs or gallops normal S1 normal S2. GASTROINTESTINAL: The abdomen is soft. Abdomen is nontender. MUSCULOSKELETAL/EXTREMITIES: There is no evidence of gross deformity full range of motion is noted in the hips and shoulders. SKIN: There is no obvious evidence of any rash. There are no petechiae, pallor or cyanosis noted. NEUROLOGIC: The patient is awake and oriented to person place and recognizes her family member. Strength was symmetric but diminished. There is no facial droop. Speech was slow. MEDICAL DECISION MAKING: The patient is a 73-year-old female who presented to the emergency department by ambulance but was taken directly to triage. I asked the charge nurse as well as the protocol nurses to bring the patient back quickly but unfortunately due to volume the patient was brought back to room after she had been in the protocol area for an extended period of time. The patient presented because of a headache but her family members stated that she did not feel well. She was not able to breathe well and found to be hypoxic. The patient was slow to answer questions and appeared somewhat listless. I discussed patient's laboratory and radiographic studies with her and her daughter. Chest x-ray appears to be consistent with an infiltrate. She had a workup ordered in triage but this was mostly for the acute headache. The patient was treated with IV fluids and IV antibiotics. She was reevaluated multiple times. The patient was placed on supplemental oxygen. Her mentation did improve but her family members were still concerned he was not at baseline. I discussed the patient's condition with the on-call [facility]. They have agreed to evaluate the patient in the emergency department. Imaging did not reveal any signs of intracranial hemorrhage. She does have significant cerebrovascular disease. The patient did not have signs of pulmonary embolism on CT but a significant infiltrate was noted. Triage Nursing notes reviewed. Prior medical records reviewed Vital Signs: reviewed and remarkable for hypoxia and tachypnea. Differential diagnosis: Infection, dehydration, metabolic abnormality, hypo/hyperglycemia, electrolyte disturbance, anemia, hypoxia, cardiac sources, intracerebral event, toxicologic, neurologic, as well as other pathologies. ER treatment provided: See below Diagnostics interpreted by me: ECG: EKG was obtained in the emergency department. My interpretation is sinus tachycardia 116 bpm. There is no ectopy. Right bundle branch block pattern was noted. This was compared to a tracing from September 04, 2023. There is an increase in rate otherwise no changes. Cardiac Monitoring: An order was placed for continuous cardiac monitoring. The monitor shows a rate of 95 bpm with sinus rhythm. Laboratory studies: As stated above and show below. Imaging studies: See below. Radiographic imaging was reviewed by myself Consultation(s): I discussed this case with Dr. Boo who is on-call for the [facility] ED COURSE: Procedures: none Critical Care: I have personally spent greater than 55 minutes of critical care time in the direct management of this patient. This includes bedside care, interpretation of diagnostic studies, and testing, discussion with consultants, patient, and family members, and other required patient management activities. This 55 minutes is in excess of all separately billable procedures. Past Med/Surg History Problem List (Updated 10/30/23 @ 16:50 by Augustine Candelaria DO) Cerebrovascular disease (Acute) Elevated troponin I level (Acute) AMS (altered mental status) (Acute) Headache (Acute) Hypoxia (Acute) Pneumonia (Acute) Carpal tunnel syndrome on right Rotator cuff tear arthropathy of right shoulder SOB (shortness of breath) (Acute) Rhinovirus infection (Acute) Chest pain (Acute) Nausea vomiting and diarrhea Sepsis Hypomagnesemia (Acute) Nausea & vomiting (Acute) Acute neck pain (Acute) Diarrhea (Acute) Headache (Acute) Implantable intrathecal infusion pump present containing hydromorphone SCHMIDT (dyspnea on exertion) (Chronic) Diabetes (Acute) 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) Depressive disorder (Chronic) Intractable low back pain (Chronic) Generalized anxiety disorder (Chronic) Major depressive disorder (Chronic) 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 Panic disorder (Chronic) Encounter for pre-operative examination Bowel and bladder incontinence (Acute) History of fusion of lumbar spine (Chronic) Surgical wound, non healing (Acute) Weakness of lower extremity (Chronic) Hypoxia (Acute) Fracture of transverse process of thoracic vertebra (Acute) Fracture, rib (Acute) Fall (Acute) Restless leg syndrome Epidural hematoma Constipation Lumbar postlaminectomy syndrome (Chronic) Encounter for annual routine gynecological examination COVID-19 virus infection (Acute) Fall (Acute) Syncope (Acute) Hypoxemia (Acute) Back injury (Acute) TEA (acute kidney injury) Elevated CK Acute respiratory failure with hypoxia Pneumonia due to 2019 novel coronavirus Thoracic spine fracture Morbid obesity with BMI of 40.0-44.9, adult DVT prophylaxis Chest wall pain History of thoracic spinal fusion Ambulatory dysfunction Frequent falls Encounter for pre-operative examination Wheezing Lower extremity pain, left (Acute) Left lumbar radiculopathy (Acute) Lumbosacral radiculopathy Shoulder pain, right Right shoulder pain Acute hypotension (Acute) Acute dehydration (Acute) Hypomagnesemia (Acute) Diarrhea (Acute) Lactic acidosis Constipation Hypoxia Low back pain Acute kidney injury Arthritis of shoulder region, right Adhesive capsulitis of right shoulder Rotator cuff arthropathy of right shoulder Chronic laryngitis Laryngopharyngeal reflux (LPR) Right hip pain Claudication of lower extremity Peripheral edema Intermittent (no issues at PAT appt 08/28/22) Therapeutic opioid-induced constipation (OIC) Chronic SI joint pain Neurogenic claudication due to lumbar spinal stenosis Lumbar spinal stenosis (Chronic) Lumbar spondylosis (Chronic) Intractable neuropathic pain of lower extremity (Chronic) Degenerative disc disease (Chronic) Sleep apnea (Chronic) NO DEVICE USED Hypertension (Chronic) Diabetes mellitus, type 2 (Chronic) Glucose only fair controlled Diabetic peripheral neuropathy associated with type 2 diabetes mellitus (Chronic) Fatty liver (Chronic) Hyperlipidemia (Chronic) Medical History Hx of fall 04/2020>FELL AND HOSPITALIZED FOR COVID/HYPOXIA AND "BROKE MY BACK>SENT TO [facility]. WAS IN A DRUG INDUCED COMA FOR WEEKS/HAD BACK SURGERY". History of COVID-19 04/2020 (HOSPITALIZED IN [facility])>RESOLVED Hx of gout GERD (gastroesophageal reflux disease) Well controlled and stable Restless leg syndrome History of kidney stones Surgical History History of back surgery 4 TOTAL BACK SURGERIES Most recent - T8-L1 Jun 2020 L2-L5 (prior) (04/2020) History of esophagogastroduodenoscopy (EGD) History of colonoscopy History of tooth extraction H/O varicose vein ligation and stripping Saphenous vein History of open reduction and internal fixation (ORIF) procedure RT ANKLE History of section X 3 History of herniorrhaphy 02/21/15 - Repair of incarcerated incisional hernia with Surgimesh 10cm in diameter resection of incarcerated omentum by Dr Knutson History of appendectomy 10/19/12 - laparoscopic by Dr Herrera Family History Mother Osteoporosis Heart disease Cancer Hypertension Brother Diabetes Family history of diabetes mellitus Daughter Cervical cancer Father Parkinsons Other No family history of adverse response to anesthesia Denies family history of Ovarian cancer Breast cancer Colorectal cancer Stroke Asthma Social History Smoking Status: Never smoker Second Hand Exposure: No; Do You Dip or Chew Tobacco: No; Hx Alcohol Use: No Hx Substance Use: No Preferred Language: Malay Communication Ability: Effective Visual Impairment: No Limitations Hearing Ability: Normal Client Development Consultant Required: No Beliefs That Will Affect Care: None marital status: Current Living Situation: Spouse current occupational status: retired current occupation: Retired Feels Safe at Home: Yes Dental Care, Regularly: Yes Physical Activity Frequency: Does not Exercise Assistive Devices: Cane, Nebulizer and Walker Allergies Allergies Allergy/AdvReac Type Severity Reaction Status Date / Time cefuroxime AdvReac Intermediate upset Verified 10/30/23 15:35 stomach prochlorperazine AdvReac Intermediate Confusion Verified 10/30/23 15:35 [From Compazine] Home Meds Home Medications Medication Instructions Recorded Confirmed amlodipine 5 mg tablet 5 mg PO QAM 02/09/18 10/30/23 albuterol sulfate 90 mcg/actuation 2 puffs inhalation Q4H PRN 08/08/19 10/30/23 aerosol inhaler shortness of breath or wheezing atorvastatin 40 mg tablet 40 mg PO QAM 06/05/20 10/30/23 glipizide 2.5 mg tablet, extended 2.5 mg PO QAM 06/05/20 10/30/23 release 24 hr metformin 1,000 mg tablet 1,000 mg PO BID 06/05/20 10/30/23 pantoprazole 40 mg tablet,delayed 40 mg PO QAM 06/05/20 10/30/23 release gabapentin 300 mg capsule 900 mg PO TID 08/07/20 10/30/23 multivitamin 1 tab PO QAM 08/28/22 10/30/23 psyllium husk (with sugar) 3.4 2 tbsp PO QAM 07/01/23 10/30/23 gram/7 gram oral powder (Metamucil (with sugar)) triamcinolone acetonide 0.1 % 1 applic topical DAILY PRN dry legs 07/01/23 10/30/23 topical cream guaifenesin 600 mg tablet, 1,200 mg PO Q12 PRN Congestion 10/30/23 10/30/23 extended release 12 hr (Mucinex) losartan 100 mg tablet 100 mg PO QAM 10/30/23 10/30/23 Previous Rx's Medication Instructions Recorded duloxetine 60 mg capsule,delayed 60 mg PO BID #180 caps 10/30/22 release (Cymbalta) acetaminophen 325 mg tablet 650 mg (2 x 325 mg) PO Q4H PRN 07/04/23 pain #30 tabs albuterol sulfate 2.5 mg/3 mL 2.5 mg (3 mL) inhalation Q6H PRN 07/04/23 (0.083 %) solution for nebulization Shortness Of Breath #180 mL magnesium 250 mg tablet 250 mg PO HS #30 tabs 07/04/23 Results & Data (ED) Vital Signs Vital Signs - 24 hr 10/30/23 11:16 10/30/23 12:14 10/30/23 12:15 Temperature 36.6 C Temperature Source Temporal Artery Scan Pulse Rate 113 H 110 H 109 H Pulse Rate [Apical] Pulse Rate from SpO2 Sensor 109 H 110 H Pulse Rhythm [Apical] Pulse Strength [Apical] Respiratory Rate 16 39 H 36 H Respiratory Effort / Characteristics Non-Labored Respiratory Depth Normal Respiratory Pattern Blood Pressure 115/70 Blood Pressure [Left Arm] Blood Pressure Mean 85 Blood Pressure Mean [Left Arm] Pulse Oximetry 93 90 91 Oxygen Delivery Method Nasal Cannula Oxygen Flow Rate 2 Sepsis Recent Fever Within 48 Hours No Sepsis New/Unexplained Change in Mental Status No Sepsis Action Taken by Nursing No Action Required 10/30/23 12:15 10/30/23 12:16 10/30/23 12:20 Temperature Temperature Source Pulse Rate 108 H Pulse Rate [Apical] 108 H Pulse Rate from SpO2 Sensor 109 H Pulse Rhythm [Apical] Regular Pulse Strength [Apical] Normal Respiratory Rate 22 35 H Respiratory Effort / Characteristics Short of Breath Respiratory Depth Normal Respiratory Pattern Regular Blood Pressure 112/71 Blood Pressure [Left Arm] 112/71 Blood Pressure Mean 86 Blood Pressure Mean [Left Arm] 84 Pulse Oximetry 92 92 Oxygen Delivery Method Nasal Cannula Oxygen Flow Rate 3 Sepsis Recent Fever Within 48 Hours Sepsis New/Unexplained Change in Mental Status Sepsis Action Taken by Nursing 10/30/23 12:21 10/30/23 12:30 10/30/23 12:30 Temperature Temperature Source Pulse Rate 110 H 109 H Pulse Rate [Apical] Pulse Rate from SpO2 Sensor 109 H Pulse Rhythm [Apical] Pulse Strength [Apical] Respiratory Rate 37 H Respiratory Effort / Characteristics Respiratory Depth Respiratory Pattern Blood Pressure 107/84 Blood Pressure [Left Arm] Blood Pressure Mean 87 Blood Pressure Mean [Left Arm] Pulse Oximetry 92 Oxygen Delivery Method Oxygen Flow Rate Sepsis Recent Fever Within 48 Hours Sepsis New/Unexplained Change in Mental Status Sepsis Action Taken by Nursing 10/30/23 12:40 10/30/23 12:50 10/30/23 13:00 Temperature Temperature Source Pulse Rate 106 H 106 H 106 H Pulse Rate [Apical] Pulse Rate from SpO2 Sensor 106 H 103 H 106 H Pulse Rhythm [Apical] Pulse Strength [Apical] Respiratory Rate 36 H 33 H 29 H Respiratory Effort / Characteristics Respiratory Depth Respiratory Pattern Blood Pressure Blood Pressure [Left Arm] Blood Pressure Mean Blood Pressure Mean [Left Arm] Pulse Oximetry 92 92 92 Oxygen Delivery Method Oxygen Flow Rate Sepsis Recent Fever Within 48 Hours Sepsis New/Unexplained Change in Mental Status Sepsis Action Taken by Nursing 10/30/23 13:10 10/30/23 13:15 10/30/23 13:15 Temperature Temperature Source Pulse Rate 103 H 104 H Pulse Rate [Apical] Pulse Rate from SpO2 Sensor 104 H 104 H Pulse Rhythm [Apical] Pulse Strength [Apical] Respiratory Rate 36 H 27 H Respiratory Effort / Characteristics Respiratory Depth Respiratory Pattern Blood Pressure 121/71 Blood Pressure [Left Arm] Blood Pressure Mean 96 Blood Pressure Mean [Left Arm] Pulse Oximetry 91 90 Oxygen Delivery Method Oxygen Flow Rate Sepsis Recent Fever Within 48 Hours Sepsis New/Unexplained Change in Mental Status Sepsis Action Taken by Nursing 10/30/23 13:20 10/30/23 13:52 10/30/23 13:52 Temperature Temperature Source Pulse Rate 103 H 105 H Pulse Rate [Apical] Pulse Rate from SpO2 Sensor 103 H 104 H Pulse Rhythm [Apical] Pulse Strength [Apical] Respiratory Rate 30 H 19 Respiratory Effort / Characteristics Respiratory Depth Respiratory Pattern Blood Pressure 134/70 Blood Pressure [Left Arm] Blood Pressure Mean 104 Blood Pressure Mean [Left Arm] Pulse Oximetry 92 92 Oxygen Delivery Method Oxygen Flow Rate Sepsis Recent Fever Within 48 Hours Sepsis New/Unexplained Change in Mental Status Sepsis Action Taken by Nursing 10/30/23 14:00 10/30/23 14:00 10/30/23 14:00 Temperature Temperature Source Pulse Rate 102 H Pulse Rate [Apical] 83 Pulse Rate from SpO2 Sensor 103 H Pulse Rhythm [Apical] Regular Pulse Strength [Apical] Respiratory Rate 19 34 H Respiratory Effort / Characteristics Non-Labored Spontaneous Respiratory Depth Normal Respiratory Pattern Regular Blood Pressure 121/65 Blood Pressure [Left Arm] Blood Pressure Mean 91 Blood Pressure Mean [Left Arm] Pulse Oximetry 93 97 Oxygen Delivery Method Nasal Cannula Oxygen Flow Rate 3 Sepsis Recent Fever Within 48 Hours Sepsis New/Unexplained Change in Mental Status Sepsis Action Taken by Nursing 10/30/23 14:10 10/30/23 14:20 10/30/23 14:30 Temperature Temperature Source Pulse Rate 102 H 101 H Pulse Rate [Apical] Pulse Rate from SpO2 Sensor 102 H 101 H Pulse Rhythm [Apical] Pulse Strength [Apical] Respiratory Rate 27 H 28 H Respiratory Effort / Characteristics Respiratory Depth Respiratory Pattern Blood Pressure 124/72 Blood Pressure [Left Arm] Blood Pressure Mean 87 Blood Pressure Mean [Left Arm] Pulse Oximetry 96 95 Oxygen Delivery Method Oxygen Flow Rate Sepsis Recent Fever Within 48 Hours Sepsis New/Unexplained Change in Mental Status Sepsis Action Taken by Nursing 10/30/23 14:30 10/30/23 16:07 Temperature Temperature Source Pulse Rate 103 H 95 H Pulse Rate [Apical] Pulse Rate from SpO2 Sensor 103 H Pulse Rhythm [Apical] Pulse Strength [Apical] Respiratory Rate 26 H Respiratory Effort / Characteristics Respiratory Depth Respiratory Pattern Blood Pressure Blood Pressure [Left Arm] Blood Pressure Mean Blood Pressure Mean [Left Arm] Pulse Oximetry 96 Oxygen Delivery Method Oxygen Flow Rate Sepsis Recent Fever Within 48 Hours Sepsis New/Unexplained Change in Mental Status Sepsis Action Taken by [facility] Medications Current Medication List: was personally reviewed by me Laboratory Data Attestation: I reviewed the patient's lab results. 10/30/23 11:17 10/30/23 12:20 Lab Results 10/30/23 10/30/23 10/30/23 Range/Units 11:17 11:36 12:20 WBC 21.94 H (4.8-10.8) K/ul RBC 4.13 L (4.20-5.40) M/uL Hgb 12.4 (12.0-16.0) g/dl Hct 37.6 (37.0-47.0) % MCV 91.0 (80.0-100.0) fL MCH 30.0 (25.0-34.0) pg MCHC 33.0 (32.0-36.0) g/dL RDW Std Deviation 50.3 H (36.4-46.3) fL RDW Coeff of Manas 15.1 H (11.5-14.5) % Plt Count 240 (130-400) K/uL MPV 10.6 (9.4-12.4) fL Immature Gran % (Auto) 4.1 % Neut % (Auto) 81.1 % Lymph % (Auto) 9.0 % Edwards % (Auto) 5.3 % Eos % (Auto) 0.1 % Baso % (Auto) 0.4 % Neut # (Auto) 17.76 H (1.40-6.50) K/uL Lymph # (Auto) 1.98 (1.20-3.40) K/uL Edwards # (Auto) 1.17 H (0.11-0.59) K/uL Eos # (Auto) 0.03 (0.00-0.50) K/uL Baso # (Auto) 0.09 (0.00-0.20) K/uL Immature Gran # (Auto) 0.91 H (0.01-0.20) K/uL PT Cancelled INR Cancelled APTT Cancelled PTT Ratio Cancelled VBG pH 7.37 (7.36-7.41) VBG pCO2 42 (38-50) mmHg VBG pO2 30 mmHg VBG HCO3 24 mmol/L VBG O2 Saturation < 60.0 % VBG Base Excess -1.1 mEq/L Sodium 131 L (136-145) mmol/L Potassium TNP 3.9 Chloride 97 L (98-107) mmol/L Carbon Dioxide 25 (21-32) mmol/L Anion Gap 9 (3-11) BUN 22 (6-23) mg/dl Creatinine 0.91 (0.6-1.2) mg/dl Est Cr Clr Drug Dosing 58.2 ml/min Est GFR ( Amer) 73.6 ml/min Est GFR (Non-Af Amer) 63.5 ml/min BUN/Creatinine Ratio 24.2 H (10-20) Glucose 148 H (70-99(Fasting)) mg/dl POC Glucose (70-99) mg/dl Lactate 3.8 H* (0.4-2.0) mmol/L Calcium 9.0 (8.6-10.3) mg/dl Magnesium 1.9 (1.7-2.4) mg/dl Total Bilirubin 0.7 (0.2-1.0) mg/dl AST TNP 13 ALT 16 (7-52) U/L Alkaline Phosphatase 89 (34-104) U/L Troponin I High Sens 47.2 H (0-14) pg/ml C-Reactive Protein (0-0.5) mg/dl Total Protein 6.8 (6.0-8.3) gm/dl Albumin 3.4 (3.4-5.0) gm/dl Globulin 3.4 (2.5-4.0) gm/dl Albumin/Globulin Ratio 1.0 (0.9-2) Procalcitonin (0-0.5) ng/ml Urine Color Urine Appearance (Clear) Urine pH (4.5-7.5) Ur Specific Ambler (1.000-1.030) Urine Protein (Negative) Urine Glucose (UA) (Negative) Urine Ketones (Negative) Urine Blood (Negative) Urine Nitrite (Negative) Urine Bilirubin (Negative) Urine Urobilinogen (Negative) Ur Leukocyte Esterase (Negative) Urine WBC (Auto) (0-5) /hpf Urine RBC (Auto) (0-2) /hpf U Hyaline Cast (Auto) (0-2) /lpf U Epithel Cells (Auto) (0-2) /hpf Urine Bacteria (Auto) (None Seen) Urine Opiates Screen (Neg) Ur Methadone, Qual (Neg) Urine Fentanyl Screen (Neg) Urine Barbiturates (Neg) Ur Phencyclidine (PCP) (Neg) U Amphetamin/Meth Scrn (Neg) MDMA (Ecstasy) Screen (Neg) U Benzodiazepines Scrn (Neg) Ur Cocaine Metabolite (Neg) U Marijuana (THC) Screen (Neg) Adenovirus (PCR) (NotDetected) B. pertussis DNA (PCR) (NotDetected) B.parapertussis DNA PCR (NotDetected) C. pneumoniae DNA (PCR) (NotDetected) Coronavirus OC43 (PCR) (NotDetected) Coronavirus HKU1 (PCR) (NotDetected) Coronavirus 229E (PCR) (NotDetected) SARS-CoV-2 (PCR) (NotDetected) Coronavirus NL63 (PCR) (NotDetected) Human Metapneumovir PCR (NotDetected) Influenza Type A (PCR) (NotDetected) Influenza Type B (PCR) (NotDetected) M. pneumoniae (PCR) (NotDetected) Parainfluenza 1 (PCR) (NotDetected) Parainfluenza 2 (PCR) (NotDetected) Parainfluenza 3 (PCR) (NotDetected) Parainfluenza 4 (PCR) (NotDetected) RSV (PCR) (NotDetected) Entero/Rhino (PCR) (NotDetected) Blood Type AB Positive Antibody Screen NEGATIVE 10/30/23 10/30/23 10/30/23 Range/Units 12:32 12:41 12:42 WBC (4.8-10.8) K/ul RBC (4.20-5.40) M/uL Hgb (12.0-16.0) g/dl Hct (37.0-47.0) % MCV (80.0-100.0) fL MCH (25.0-34.0) pg MCHC (32.0-36.0) g/dL RDW Std Deviation (36.4-46.3) fL RDW Coeff of Manas (11.5-14.5) % Plt Count (130-400) K/uL MPV (9.4-12.4) fL Immature Gran % (Auto) % Neut % (Auto) % Lymph % (Auto) % Edwards % (Auto) % Eos % (Auto) % Baso % (Auto) % Neut # (Auto) (1.40-6.50) K/uL Lymph # (Auto) (1.20-3.40) K/uL Edwards # (Auto) (0.11-0.59) K/uL Eos # (Auto) (0.00-0.50) K/uL Baso # (Auto) (0.00-0.20) K/uL Immature Gran # (Auto) (0.01-0.20) K/uL PT INR APTT PTT Ratio VBG pH (7.36-7.41) VBG pCO2 (38-50) mmHg VBG pO2 mmHg VBG HCO3 mmol/L VBG O2 Saturation % VBG Base Excess mEq/L Sodium (136-145) mmol/L Potassium Chloride (98-107) mmol/L Carbon Dioxide (21-32) mmol/L Anion Gap (3-11) BUN (6-23) mg/dl Creatinine (0.6-1.2) mg/dl Est Cr Clr Drug Dosing ml/min Est GFR ( Amer) ml/min Est GFR (Non-Af Amer) ml/min BUN/Creatinine Ratio (10-20) Glucose (70-99(Fasting)) mg/dl POC Glucose 154 H (70-99) mg/dl Lactate (0.4-2.0) mmol/L Calcium (8.6-10.3) mg/dl Magnesium (1.7-2.4) mg/dl Total Bilirubin (0.2-1.0) mg/dl AST ALT (7-52) U/L Alkaline Phosphatase (34-104) U/L Troponin I High Sens (0-14) pg/ml C-Reactive Protein 41.18 H (0-0.5) mg/dl Total Protein (6.0-8.3) gm/dl Albumin (3.4-5.0) gm/dl Globulin (2.5-4.0) gm/dl Albumin/Globulin Ratio (0.9-2) Procalcitonin 5.18 H (0-0.5) ng/ml Urine Color Urine Appearance (Clear) Urine pH (4.5-7.5) Ur Specific Ambler (1.000-1.030) Urine Protein (Negative) Urine Glucose (UA) (Negative) Urine Ketones (Negative) Urine Blood (Negative) Urine Nitrite (Negative) Urine Bilirubin (Negative) Urine Urobilinogen (Negative) Ur Leukocyte Esterase (Negative) Urine WBC (Auto) (0-5) /hpf Urine RBC (Auto) (0-2) /hpf U Hyaline Cast (Auto) (0-2) /lpf U Epithel Cells (Auto) (0-2) /hpf Urine Bacteria (Auto) (None Seen) Urine Opiates Screen (Neg) Ur Methadone, Qual (Neg) Urine Fentanyl Screen (Neg) Urine Barbiturates (Neg) Ur Phencyclidine (PCP) (Neg) U Amphetamin/Meth Scrn (Neg) MDMA (Ecstasy) Screen (Neg) U Benzodiazepines Scrn (Neg) Ur Cocaine Metabolite (Neg) U Marijuana (THC) Screen (Neg) Adenovirus (PCR) Not Detected (NotDetected) B. pertussis DNA (PCR) Not Detected (NotDetected) B.parapertussis DNA PCR Not Detected (NotDetected) C. pneumoniae DNA (PCR) Not Detected (NotDetected) Coronavirus OC43 (PCR) Not Detected (NotDetected) Coronavirus HKU1 (PCR) Not Detected (NotDetected) Coronavirus 229E (PCR) Not Detected (NotDetected) SARS-CoV-2 (PCR) Not Detected (NotDetected) Coronavirus NL63 (PCR) Not Detected (NotDetected) Human Metapneumovir PCR Not Detected (NotDetected) Influenza Type A (PCR) Not Detected (NotDetected) Influenza Type B (PCR) Not Detected (NotDetected) M. pneumoniae (PCR) Not Detected (NotDetected) Parainfluenza 1 (PCR) Not Detected (NotDetected) Parainfluenza 2 (PCR) Not Detected (NotDetected) Parainfluenza 3 (PCR) Not Detected (NotDetected) Parainfluenza 4 (PCR) Not Detected (NotDetected) RSV (PCR) Not Detected (NotDetected) Entero/Rhino (PCR) Not Detected (NotDetected) Blood Type Antibody Screen 10/30/23 10/30/23 10/30/23 Range/Units 12:58 14:33 14:35 WBC (4.8-10.8) K/ul RBC (4.20-5.40) M/uL Hgb (12.0-16.0) g/dl Hct (37.0-47.0) % MCV (80.0-100.0) fL MCH (25.0-34.0) pg MCHC (32.0-36.0) g/dL RDW Std Deviation (36.4-46.3) fL RDW Coeff of Manas (11.5-14.5) % Plt Count (130-400) K/uL MPV (9.4-12.4) fL Immature Gran % (Auto) % Neut % (Auto) % Lymph % (Auto) % Edwards % (Auto) % Eos % (Auto) % Baso % (Auto) % Neut # (Auto) (1.40-6.50) K/uL Lymph # (Auto) (1.20-3.40) K/uL Edwards # (Auto) (0.11-0.59) K/uL Eos # (Auto) (0.00-0.50) K/uL Baso # (Auto) (0.00-0.20) K/uL Immature Gran # (Auto) (0.01-0.20) K/uL PT 12.1 H INR 1.1 APTT 30 PTT Ratio 1.1 VBG pH (7.36-7.41) VBG pCO2 (38-50) mmHg VBG pO2 mmHg VBG HCO3 mmol/L VBG O2 Saturation % VBG Base Excess mEq/L Sodium (136-145) mmol/L Potassium Chloride (98-107) mmol/L Carbon Dioxide (21-32) mmol/L Anion Gap (3-11) BUN (6-23) mg/dl Creatinine (0.6-1.2) mg/dl Est Cr Clr Drug Dosing ml/min Est GFR ( Amer) ml/min Est GFR (Non-Af Amer) ml/min BUN/Creatinine Ratio (10-20) Glucose (70-99(Fasting)) mg/dl POC Glucose (70-99) mg/dl Lactate (0.4-2.0) mmol/L Calcium (8.6-10.3) mg/dl Magnesium (1.7-2.4) mg/dl Total Bilirubin (0.2-1.0) mg/dl AST ALT (7-52) U/L Alkaline Phosphatase (34-104) U/L Troponin I High Sens 14.9 H D (0-14) pg/ml C-Reactive Protein (0-0.5) mg/dl Total Protein (6.0-8.3) gm/dl Albumin (3.4-5.0) gm/dl Globulin (2.5-4.0) gm/dl Albumin/Globulin Ratio (0.9-2) Procalcitonin (0-0.5) ng/ml Urine Color Yellow Urine Appearance Clear (Clear) Urine pH 7.0 (4.5-7.5) Ur Specific Ambler 1.029 (1.000-1.030) Urine Protein 1+ H (Negative) Urine Glucose (UA) Negative (Negative) Urine Ketones Negative (Negative) Urine Blood Negative (Negative) Urine Nitrite Negative (Negative) Urine Bilirubin Negative (Negative) Urine Urobilinogen Negative (Negative) Ur Leukocyte Esterase 2+ H (Negative) Urine WBC (Auto) 6-10 H (0-5) /hpf Urine RBC (Auto) 3-5 H (0-2) /hpf U Hyaline Cast (Auto) 0-2 (0-2) /lpf U Epithel Cells (Auto) 3-5 H (0-2) /hpf Urine Bacteria (Auto) 1+ H (None Seen) Urine Opiates Screen Neg (Neg) Ur Methadone, Qual Neg (Neg) Urine Fentanyl Screen Neg (Neg) Urine Barbiturates Neg (Neg) Ur Phencyclidine (PCP) Neg (Neg) U Amphetamin/Meth Scrn Neg (Neg) MDMA (Ecstasy) Screen Neg (Neg) U Benzodiazepines Scrn Neg (Neg) Ur Cocaine Metabolite Neg (Neg) U Marijuana (THC) Screen Neg (Neg) Adenovirus (PCR) (NotDetected) B. pertussis DNA (PCR) (NotDetected) B.parapertussis DNA PCR (NotDetected) C. pneumoniae DNA (PCR) (NotDetected) Coronavirus OC43 (PCR) (NotDetected) Coronavirus HKU1 (PCR) (NotDetected) Coronavirus 229E (PCR) (NotDetected) SARS-CoV-2 (PCR) (NotDetected) Coronavirus NL63 (PCR) (NotDetected) Human Metapneumovir PCR (NotDetected) Influenza Type A (PCR) (NotDetected) Influenza Type B (PCR) (NotDetected) M. pneumoniae (PCR) (NotDetected) Parainfluenza 1 (PCR) (NotDetected) Parainfluenza 2 (PCR) (NotDetected) Parainfluenza 3 (PCR) (NotDetected) Parainfluenza 4 (PCR) (NotDetected) RSV (PCR) (NotDetected) Entero/Rhino (PCR) (NotDetected) Blood Type Antibody Screen Administered Medications Discontinued Medications Ceftriaxone Sodium (Rocephin) 2,000 mg in 50 mls @ 100 mls/hr IV NOW STA Stop: 10/30/23 12:59 Last Infusion: 10/30/23 14:05 Dose: Infused Documented By: Admin: 10/30/23 13:02 Dose: 100 mls/hr Documented By: GABRIELA Sodium Chloride (Nss) 1,000 mls @ 999 mls/hr IV .Q1H1M ONE Stop: 10/30/23 14:00 Last Infusion: 10/30/23 16:36 Dose: Infused Documented By: Admin: 10/30/23 13:08 Dose: 999 mls/hr Documented By: GABRIELA Sodium Chloride (Nss) 1,000 mls @ 999 mls/hr IV .Q1H1M ONE Stop: 10/30/23 15:33 Last Admin: 10/30/23 15:46 Dose: 999 mls/hr Documented By: GABRIELA Ioversol (Optiray 320 125ml) 120 ml IV ONCE ONE Stop: 10/30/23 13:34 Last Admin: 10/30/23 13:34 Dose: 120 ml Documented By: MARIO Imaging Data Attestation: I personally reviewed and interpreted this imaging study as follows: My Impression: 1 view chest x-ray was obtained in the emergency department. My interpretation is left-sided infiltrate, final report below. CT of the brain was obtained in the emergency department. My interpretation is no intracranial hemorrhage or mass effect, final report below. Radiologist's Impression: Head CT 10/30/23 11:17 CT OF THE HEAD WITHOUT CONTRAST CLINICAL HISTORY: neuro deficit, acute stroke suspected COMPARISON STUDY: MRI of the brain November 15, 2022. Head CT June 30, 2023. TECHNIQUE: Helical axial images of the head were obtained without IV contrast. Automated exposure control was utilized for the study. A dose lowering technique was utilized adhering to the principles of ALARA. FINDINGS: No acute intracranial hemorrhage, midline shift or mass effect is present. The ventricular system is unremarkable. The basal cisterns are patent. No extra-axial collections are present. There are no findings to suggest acute dural sinus thrombosis or acute territorial infarct. White matter hypodensities are unchanged and favor small vessel disease. There is mild sinus mucosal thickening. There are minimal secretions within the left sphenoid sinus. IMPRESSION: No acute intracranial findings. No change in appearance of the brain. ACT 112: Negative or not required by law. Electronically signed by: Nir Jerome M.D. 10/30/2023 2:03 PM Head CTA 10/30/23 11:17 CTA ANGIOGRAPHY OF THE HEAD CLINICAL HISTORY: neuro deficit, acute stroke suspected COMPARISON STUDY: MRI of the brain February 15, 2023. Head CT June 30, 2023. TECHNIQUE: Helical axial images of the head were obtained following uneventful intravenous administration of 119 cc of Optiray. Sagittal and coronal reconstructions were viewed as well as maximal intensity projections on an independent 3-D workstation. Automated exposure control was utilized for the study. A dose lowering technique was utilized adhering to the principles of ALARA. FINDINGS: No acute intracranial hemorrhage is identified on the head CT which will be reported separately. Ventricular system is normal. Basal cisterns are patent. White matter hypodensities are unchanged. There is extensive plaque within the bilateral cavernous carotids with mild stenosis. There is severe stenosis of the mid right middle cerebral artery on image 161 of 308. The right sylvian branches are patent. The left M1 and M2 segment are patent. The bilateral A1 and A2 segment are patent. No intracranial aneurysm. The distal right vertebral artery is diminutive. There is also severe stenosis within the basilar artery which is diminutive. persistence of the right posterior shoulder is noted. There is a large left posterior communicating artery. The bilateral posterior cerebral arteries are patent. No definite acute vessel occlusion is identified. IMPRESSION: 1. Severe stenosis of the right middle cerebral artery. Diminutive intracranial portion of the left vertebral artery and basilar artery with severe stenosis. 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 2. No definite acute intracranial vessel occlusion. No intracranial aneurysm. 3. Extensive calcified atherosclerotic plaque within the bilateral cavernous carotids with mild stenosis. ACT 112: Negative or not required by law. Electronically signed by: Nir Jerome M.D. 10/30/2023 2:10 PM Neck CTA 10/30/23 11:17 CT ANGIOGRAPHY OF THE NECK WITH CONTRAST CLINICAL HISTORY: neuro deficit, acute stroke suspected COMPARISON STUDY: Neck CT March 19, 2020. Technique: CT angiography of the carotid and vertebral arteries was obtained using Optiray and 3D reconstruction on an independent workstation. NASCET criteria was utilized. Automated exposure control was utilized for the study. A dose lowering technique was utilized adhering to the principles of ALARA. Findings: Extensive left upper lobe consolidation is partially imaged on this exam. 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 No cervical spine fractures are present. There is no cervical lymphadenopathy. The left vertebral artery is diminutive. No focal is identified within portions of the left vertebral artery with distal reconstitution. The right vertebral artery is patent. Long segment mixed calcified and noncalcified plaque within the proximal right internal carotid artery results in mild stenosis with 20% narrowing. There is moderate plaque at the left carotid bifurcation. This results in 60% stenosis of the proximal left internal carotid artery and the distal left common carotid artery. IMPRESSION: 1. 60% stenosis at the left carotid bifurcation, as described above. 2. Mild stenosis within the proximal right internal carotid artery. 3. Diminutive left vertebral artery with trace flow with apparent areas of occlusion distal reconstitution. The findings are age indeterminate. An underlying dissection would be difficult to exclude. 4. Extensive left upper lobe consolidation partially imaged on this exam. This favors pneumonia. Radiographic follow-up to ensure resolution is recommended. ACT 112: Negative or not required by law. Electronically signed by: Nir Jerome M.D. 10/30/2023 2:52 PM Chest X-Ray 10/30/23 11:52 XR chest 1V portable HISTORY: Shortness of breath. Chest pain. COMPARISON: Chest 09/08/2023. FINDINGS: There are low lung volumes. No pneumothorax. No pleural effusions. The heart is mildly enlarged. This remains unchanged. No acute fractures identified. Thoracolumbar spinal fusion hardware again noted. Peripheral wedge-shaped density noted within the left midlung zone. This is new compared the prior study. The right lung is clear. IMPRESSION: There is a new peripheral wedge-shaped density within left midlung zone. This will be better assessed on the same day chest CTA. ACT 112: Negative or not required by law. Electronically signed by: Oc Rosas M.D. 10/30/2023 1:03 PM Chest CTA 10/30/23 12:52 CT angio chest PE protocol CLINICAL HISTORY: PE TECHNIQUE: Multidetector row helical CT of the chest was performed with angiographic protocol. Coronal and sagittal reformations were obtained. Coronal and sagittal MIPS were obtained from the axial data set and were submitted for review. Automated dose lowering techniques and/or adjustment according to patient size were utilized for this exam. CT DOSE: 1767.34 mGy.cm Comparison: Comparison is made to CT chest 07/01/2023 FINDINGS: Lungs and pleura: Consolidative opacities are seen in the left lung. No pneumoperitoneum. Heart and pericardium: Cardiomegaly is seen with biatrial enlargement. Vessels: Evaluation for pulmonary embolism is limited due to suboptimal contrast timing. No evidence of central, lobar, or segmental embolus. Mediastinum and zia: 11 mm aortopulmonary window node. Additional prominent mediastinal lymph nodes are seen. Chest wall and lower neck: A subcentimeter right lower cervical node is seen. Abdomen: Unremarkable. Bones: Degenerative changes in the thoracic spine. Posterior fixation hardware is seen in the lower thoracic spine extending into the lumbar spine. IMPRESSION: 1. No pulmonary embolus. 2. Left lung consolidations compatible with pneumonia. ACT 112: Negative or not required by law. Electronically signed by: Ihsan Melgar M.D. 10/30/2023 2:18 PM Discharge Plan Visit Data Chief Complaint: Illness ED Provider: Augustine Candelaria Discharge Problem: Pneumonia, Hypoxia, Headache, AMS (altered mental status), Elevated troponin I level, Cerebrovascular disease Patient Disposition: Being Evaluated by Hospitalist Forms Stand Alone Forms: [facility] Prescriptions Prescriptions: No Action amlodipine 5 mg tablet 5 mg PO QAM duloxetine [Cymbalta] 60 mg capsule,delayed release(DR/EC) 60 mg PO BID Qty: 180 0RF albuterol sulfate 90 mcg/actuation HFA aerosol inhaler 2 puffs INH Q4H PRN (Reason: shortness of breath or wheezing) Rx Instructions: Inhale 2 puffs every 4 hours as needed atorvastatin 40 mg tablet 40 mg PO QAM metformin 1,000 mg tablet 1,000 mg PO BID glipizide 2.5 mg tablet extended release 24hr 2.5 mg PO QAM pantoprazole 40 mg tablet,delayed release (DR/EC) 40 mg PO QAM gabapentin 300 mg capsule 900 mg PO TID Patient Comments: TAKES 3 TAB TID Metamucil (with sugar) 3.4 gram/7 gram Powder 2 tbsp PO QAM Rx Instructions: MIX WITH 8 OZ. FLUID triamcinolone acetonide 0.1 % cream 1 applic TOPICAL DAILY PRN (Reason: dry legs) acetaminophen 325 mg Tablet 650 mg PO Q4H PRN (Reason: pain) Qty: 30 0RF Rx Instructions: OTC albuterol sulfate 2.5 mg /3 mL (0.083 %) solution for nebulization 2.5 mg inhalation Q6H PRN (Reason: Shortness Of Breath) Qty: 180 0RF magnesium 250 mg tablet 250 mg PO HS Qty: 30 0RF Rx Instructions: [id number] multivitamin Tablet 1 tab PO QAM losartan 100 mg tablet 100 mg PO QAM guaifenesin [Mucinex] 600 mg tablet extended release 12hr 1,200 mg PO Q12 PRN (Reason: Congestion) Rx Instructions: [id number] Referrals Referrals: Tsering Casper MD [Primary Care Provider] - Discharge Problem: Pneumonia Qualifiers: Pneumonia type: due to unspecified organism Laterality: left Lung location: u nspecified part of lung Qualified Code(s): J18.9 - Pneumonia, unspecified organism Headache Qualifiers: Headache type: unspecified Headache chronicity pattern: unspecified pattern I ntractability: not intractable Qualified Code(s): R51.9 - Headache, unspecified AMS (altered mental status) Qualifiers: Altered mental status type: unspecified Qualified Code(s): R41.82 - Altered mental status, unspecified
[2023-10-30 12:19] LABS: Hematocrit (blood only) 37.6 % (37.0-47.0); Hemoglobin 12.4 g/dl (12.0-16.0); Mean Platelet Volume 10.6 fL (9.4-12.4); Platelet Count 240 K/uL (130-400); RDW Coefficient of Variation 15.1 % (11.5-14.5); RDW Standard Deviation 50.3 fL (36.4-46.3); Red Blood Count 4.13 M/uL (4.20-5.40); White Blood Count 21.94 K/ul (4.8-10.8)
--- NOTE | 2023-10-30 12:32 | Electrocardiogram Report ---
Test Reason : Blood Pressure : / mmHG Vent. Rate : 116 BPM Atrial Rate : 116 BPM P-R Int : 134 ms QRS Dur : 120 ms QT Int : 314 ms P-R-T Axes : 006 -44 -29 degrees QTc Int : 436 ms Sinus tachycardia Left axis deviation Right bundle branch block Possible Old Anterolateral infarct Abnormal ECG When compared with ECG of 09-SEP-2023 00:01, Criteria for Anterolateral infarct is now Present Confirmed by Mannie Tracey ([id number]) on 10/30/2023 12:32:03 PM Referred By: Confirmed By:Mannie Tracey
[2023-10-30 12:37] LABS: Base Excess VBG -1.1 mEq/L; HCO3 VBG 24 mmol/L; Oxygen Saturation VBG < 60.0 %; PCO2 VBG 42 mmHg (38-50); PO2 VBG 30 mmHg; pH VBG 7.37 (7.36-7.41)
[2023-10-30 12:59] LABS: Anion Gap 9 (3-11); Blood Urea Nitrogen 22 mg/dl (6-23); Carbon Dioxide 25 mmol/L (21-32); Chloride 97 mmol/L (98-107); Est GFR (African American) 73.6 ml/min; Sodium 131 mmol/L (136-145)
[2023-10-30 13:00] LABS: Alanine Aminotransferase 16 U/L (7-52); Albumin Level 3.4 gm/dl (3.4-5.0); Alkaline Phosphatase 89 U/L (34-104); BUN Creatinine Ratio 24.2 (10-20); Bilirubin,Total 0.7 mg/dl (0.2-1.0); Creatinine Clr Calc Pharmacy 58.2 ml/min; Est GFR (Non-African American) 63.5 ml/min; Globulin 3.4 gm/dl (2.5-4.0); Glucose 148 mg/dl (70-99(Fasting)); Magnesium 1.9 mg/dl (1.7-2.4); Total Protein 6.8 gm/dl (6.0-8.3); Troponin I High Sensitivity 47.2 pg/ml (0-14)
[2023-10-30] MEDS: cefTRIAXone SODIUM 2,000 MG/50 ML BAG IV STA (13:02)
[2023-10-30 13:04] LABS: Basophils # (auto) 0.09 K/uL (0.00-0.20); Basophils % (auto) 0.4 %; Eosinophils # (auto) 0.03 K/uL (0.00-0.50); Eosinophils % (auto) 0.1 %; Immature Granulocytes # (auto) 0.91 K/uL (0.01-0.20); Immature Granulocytes % (auto) 4.1 %; Lymphocytes # (auto) 1.98 K/uL (1.20-3.40); Monocytes # (auto) 1.17 K/uL (0.11-0.59); Monocytes % (auto) 5.3 %; Neutrophils # (auto) 17.76 K/uL (1.40-6.50); Neutrophils % (auto) 81.1 %
--- NOTE | 2023-10-30 13:05 | XRay Report ---
XR chest 1V portable HISTORY: Shortness of breath. Chest pain. COMPARISON: Chest 09/08/2023. FINDINGS: There are low lung volumes. No pneumothorax. No pleural effusions. The heart is mildly enla rged. This remains unchanged. No acute fractures identified. Thoracolumbar spinal fusion hardware aga in noted. Peripheral wedge-shaped density noted within the left midlung zone. This is new compared th e prior study. The right lung is clear. IMPRESSION: There is a new peripheral wedge-shaped density within left midlung zone. This will be better assessed on the same day chest CTA. ACT 112: Negative or not required by law. Electronically signed by: Oc Rosas M.D. 10/30/2023 1:03 PM
[2023-10-30] MEDS: SODIUM CHLORIDE 0.9% 1,000 ML IV ONE ×2 (13:08→15:46)
[2023-10-30 13:17] LABS: Potassium 3.9 mmol/L (3.5-5.1)
[2023-10-30] MEDS: OPTIRAY 320 125ml IV ONE (13:34)
[2023-10-30 13:48] LABS: Adenovirus PCR Not Detected (NotDetected); Bordetella parapertussis PCR Not Detected (NotDetected); Bordetella pertussis PCR Not Detected (NotDetected); Chlamydia pneumoniae PCR Not Detected (NotDetected); Coronavirus 229E PCR Not Detected (NotDetected); Coronavirus CoV-2 (COVID19)PCR Not Detected (NotDetected); Coronavirus HKU1 PCR Not Detected (NotDetected); Coronavirus NL63 PCR Not Detected (NotDetected); Coronavirus OC43PCR Not Detected (NotDetected); Human Metapneumovirus PCR Not Detected (NotDetected); Influenza A PCR Not Detected (NotDetected); Influenza B PCR Not Detected (NotDetected); Mycoplasma pneumoniae PCR Not Detected (NotDetected); Parainfluenza Virus 1 PCR Not Detected (NotDetected); Parainfluenza Virus 2 PCR Not Detected (NotDetected); Parainfluenza Virus 3 PCR Not Detected (NotDetected); Parainfluenza Virus 4 PCR Not Detected (NotDetected); Respiratory Syncytial VirusPCR Not Detected (NotDetected); Rhinovirus/Enterovirus PCR Not Detected (NotDetected)
[2023-10-30 13:51] LABS: INR 1.1 (0.9-1.1); Partial Thromboplastin Ratio 1.1; Partial Thromboplastin Time 30 Seconds (21-31); Prothrombin Time 12.1 Seconds (9.0-12.0)
--- NOTE | 2023-10-30 14:04 | CT Scan Report ---
CT OF THE HEAD WITHOUT CONTRAST CLINICAL HISTORY: neuro deficit, acute stroke suspected COMPARISON STUDY: MRI of the brain November 15, 2022. Head CT June 30, 2023. TECHNIQUE: Helical axial images of the head were obtained without IV contrast. Automated exposure con trol was utilized for the study. A dose lowering technique was utilized adhering to the principles o f ALARA. FINDINGS: No acute intracranial hemorrhage, midline shift or mass effect is present. The ventricular system is unremarkable. The basal cisterns are patent. No extra-axial collections are present. There are no findings to suggest acute dural sinus thrombosis or acute territorial infarct. White matter hy podensities are unchanged and favor small vessel disease. There is mild sinus mucosal thickening. The re are minimal secretions within the left sphenoid sinus. IMPRESSION: No acute intracranial findings. No change in appearance of the brain. ACT 112: Negative or not required by law. Electronically signed by: Nir Jerome M.D. 10/30/2023 2:03 PM
--- NOTE | 2023-10-30 14:11 | CT Scan Report ---
CTA ANGIOGRAPHY OF THE HEAD CLINICAL HISTORY: neuro deficit, acute stroke suspected COMPARISON STUDY: MRI of the brain February 15, 2023. Head CT June 30, 2023. TECHNIQUE: Helical axial images of the head were obtained following uneventful intravenous administr ation of 119 cc of Optiray. Sagittal and coronal reconstructions were viewed as well as maximal inten sity projections on an independent 3-D workstation. Automated exposure control was utilized for the study. A dose lowering technique was utilized adhering to the principles of ALARA. FINDINGS: No acute intracranial hemorrhage is identified on the head CT which will be reported separa tely. Ventricular system is normal. Basal cisterns are patent. White matter hypodensities are unchang ed. There is extensive plaque within the bilateral cavernous carotids with mild stenosis. There is se sam stenosis of the mid right middle cerebral artery on image 161 of 308. The right sylvian branches are patent. The left M1 and M2 segment are patent. The bilateral A1 and A2 segment are patent. No in tracranial aneurysm. The distal right vertebral artery is diminutive. There is also severe stenosis w ithin the basilar artery which is diminutive. persistence of the right posterior shoulder is no randi. There is a large left posterior communicating artery. The bilateral posterior cerebral arteries are patent. No definite acute vessel occlusion is identified. IMPRESSION: 1. Severe stenosis of the right middle cerebral artery. Diminutive intracranial portion of the left v ertebral artery and basilar artery with severe stenosis. 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 2. No definite acute intracranial vessel occlusion. No intracranial aneurysm. 3. Extensive calcified atherosclerotic plaque within the bilateral cavernous carotids with mild steno sis. ACT 112: Negative or not required by law. Electronically signed by: Nir Jerome M.D. 10/30/2023 2:10 PM
--- NOTE | 2023-10-30 14:20 | CT Scan Report ---
CT angio chest PE protocol CLINICAL HISTORY: PE TECHNIQUE: Multidetector row helical CT of the chest was performed with angiographic protocol. Madrigal l and sagittal reformations were obtained. Coronal and sagittal MIPS were obtained from the axial danya a set and were submitted for review. Automated dose lowering techniques and/or adjustment according to patient size were utilized for this exam. CT DOSE: 1767.34 mGy.cm Comparison: Comparison is made to CT chest 07/01/2023 FINDINGS: Lungs and pleura: Consolidative opacities are seen in the left lung. No pneumoperitoneum. Heart and pericardium: Cardiomegaly is seen with biatrial enlargement. Vessels: Evaluation for pulmonary embolism is limited due to suboptimal contrast timing. No evidence of central, lobar, or segmental embolus. Mediastinum and zia: 11 mm aortopulmonary window node. Additional prominent mediastinal lymph nodes are seen. Chest wall and lower neck: A subcentimeter right lower cervical node is seen. Abdomen: Unremarkable. Bones: Degenerative changes in the thoracic spine. Posterior fixation hardware is seen in the lower t horacic spine extending into the lumbar spine. IMPRESSION: 1. No pulmonary embolus. 2. Left lung consolidations compatible with pneumonia. ACT 112: Negative or not required by law. Electronically signed by: Ihsan Melgar M.D. 10/30/2023 2:18 PM
--- NOTE | 2023-10-30 14:53 | CT Scan Report ---
CT ANGIOGRAPHY OF THE NECK WITH CONTRAST CLINICAL HISTORY: neuro deficit, acute stroke suspected COMPARISON STUDY: Neck CT March 19, 2020. Technique: CT angiography of the carotid and vertebral arteries was obtained using Optiray and 3D rec onstruction on an independent workstation. NASCET criteria was utilized. Automated exposure control was utilized for the study. A dose lowering technique was utilized adhering to the principles of ALA RA. Findings: Extensive left upper lobe consolidation is partially imaged on this exam. 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 No cervical spine fractures are pres ent. There is no cervical lymphadenopathy. The left vertebral artery is diminutive. No focal is ident ified within portions of the left vertebral artery with distal reconstitution. The right vertebral ar loretta is patent. Long segment mixed calcified and noncalcified plaque within the proximal right communications marketing intern al carotid artery results in mild stenosis with 20% narrowing. There is moderate plaque at the left c arotid bifurcation. This results in 60% stenosis of the proximal left internal carotid artery and the distal left common carotid artery. IMPRESSION: 1. 60% stenosis at the left carotid bifurcation, as described above. 2. Mild stenosis within the proximal right internal carotid artery. 3. Diminutive left vertebral artery with trace flow with apparent areas of occlusion distal reconstit ution. The findings are age indeterminate. An underlying dissection would be difficult to exclude. 4. Extensive left upper lobe consolidation partially imaged on this exam. This favors pneumonia. Radi ographic follow-up to ensure resolution is recommended. ACT 112: Negative or not required by law. Electronically signed by: Nir Jerome M.D. 10/30/2023 2:52 PM
[2023-10-30 15:15] LABS: Appearance Urine Clear (Clear); Bacteria Urine Automated 1+ (None Seen); Bilirubin Urine Negative (Negative); Blood Urine Negative (Negative); Cast Urine Automated 0-2 /lpf (0-2); Color Urine Yellow; Glucose Urine UA Negative (Negative); Ketones Urine Negative (Negative); Leukocyte Esterase Urine 2+ (Negative); Nitrite Urine Negative (Negative); Protein Urine 1+ (Negative); Specific Gravity Urine 1.029 (1.000-1.030); Urobilinogen Urine Negative (Negative)
[2023-10-30 16:12] LABS: Amphetamines+Metham, Urine Neg (Neg); Barbiturates, Urine Neg (Neg); Benzodiazepine, Urine Neg (Neg); Cocaine, Urine Neg (Neg); Fentanyl, Urine Neg (Neg); MDMA (Ecstacy), Urine Neg (Neg); Marijuana, Urine Neg (Neg); Methadone, Urine Neg (Neg); Opiate, Urine Neg (Neg); Phencyclidine, Urine Neg (Neg)
[2023-10-30] MEDS ORDERED: ALBUTEROL 0.083% NEBU SOLN 3 ML VIAL INH PRN (16:24)
[2023-10-30] MEDS ORDERED: guaiFENesin 600 MG TABCR PO PRN (16:24)
[2023-10-30] MEDS ORDERED: ACETAMINOPHEN 325 MG TAB PO PRN (16:24)
[2023-10-30] MEDS ORDERED: ONDANSETRON INJ 2 MG/ML 2 ML VIAL IV PRN (16:31)
[2023-10-30] MEDS ORDERED: CARBOHYDRATES FOR HYPOGLYCEMIA PO PRN (16:31)
[2023-10-30] MEDS ORDERED: GLUCOSE 10 TAB/TUBE PO PRN (16:31)
[2023-10-30] MEDS ORDERED: GLUCAGON FOR INJ 1 MG VIAL SQ PRN (16:31)
[2023-10-30] MEDS ORDERED: GLUCOSE 40% GEL 15 GM TUBE PO PRN (16:31)
[2023-10-30] MEDS ORDERED: DEXTROSE 50% 50 ML SYRINGE IV PRN (16:31)
--- NOTE | 2023-10-30 17:02 | History & Physical Report ---
Date of Service October 30, 2023 Assessment & Plan (1) Pneumonia: Plan: left upper lung pneumonia due to possible aspiration, chronic narcotics use , recent episode of vomiting on Friday elevated lactate, WBC, procalcitonin IV antibiotics follow up blood cultures CBC (2) Acute respiratory failure with hypoxemia: Plan: due to pneumonia, ? asthma IV antibiotics nebs oxygen suppl to keep Osat >92 % (3) Elevated troponin I level: Plan: demand ischemia ? due to acute respiratory failure repeat trop ECHO baby asa (4) Headache: Plan: patient with significant cerebrovascular disease CTA head Severe stenosis of the right middle cerebral artery. Diminutive intracranial portion of the left vertebral artery and basilar artery with severe stenosis. persistence of the right STUDENT LOAN COUNSELOR and a large left posterior communicating artery. consult neurology ASA , add Plavix ? statins family is asking for MRI brain, but she has pain pump (5) Implantable intrathecal infusion pump present: Plan: Dilaudid pump (6) Neurogenic claudication due to lumbar spinal stenosis: Plan: Dilaudid pump, no new neurological deficit (7) Diabetes: Plan: on Metformin, sulfonylurea, start insulin sliding scale History of Present Illness Chief Complaint: headache Primary Care Provider: Tsering Casper MD The patient is a 73-year-old female with h/o chronic back pain, narcotics dependence , Dilaudid pain pump for her chronic back pain, DM type 2, obesity, multiple pneumonias in the past , who presented to the emergency department for multiple complaints. The patient has been experiencing headache over the last 3 days. She states this began on Friday, after she had multiple episodes of vomiting . She also has been noticing some back pain and chest pain on the left side. She has generalized weakness and shortness of breath. 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 Diminutive intracranial portion of the left vertebral artery and basilar artery with severe stenosis. CTA chest extensive left lung pneumonia, she has elevated WBC, received IV Rocephin, reports chronic cough, denies h/o Asthma or COPD. She is hypoxic in ER 86 % on RA, does not use oxygen at home . Allergies Allergy/AdvReac Type Severity Reaction Status Date / Time cefuroxime AdvReac Intermediate upset Verified 10/30/23 15:35 stomach prochlorperazine AdvReac Intermediate Confusion Verified 10/30/23 15:35 [From Compazine] Home Medications Medication Instructions Recorded Confirmed Type amlodipine 5 mg tablet 5 mg PO QAM 02/09/18 10/30/23 History albuterol sulfate 90 mcg/actuation 2 puffs inhalation Q4H PRN 08/08/19 10/30/23 History aerosol inhaler shortness of breath or wheezing atorvastatin 40 mg tablet 40 mg PO QAM 06/05/20 10/30/23 History glipizide 2.5 mg tablet, extended 2.5 mg PO QAM 06/05/20 10/30/23 History release 24 hr metformin 1,000 mg tablet 1,000 mg PO BID 06/05/20 10/30/23 History pantoprazole 40 mg tablet,delayed 40 mg PO QAM 06/05/20 10/30/23 History release gabapentin 300 mg capsule 900 mg PO TID 08/07/20 10/30/23 History multivitamin 1 tab PO QAM 08/28/22 10/30/23 History duloxetine 60 mg capsule,delayed 60 mg PO BID #180 caps 10/30/22 10/30/23 Rx release (Cymbalta) psyllium husk (with sugar) 3.4 2 tbsp PO QAM 07/01/23 10/30/23 History gram/7 gram oral powder (Metamucil (with sugar)) triamcinolone acetonide 0.1 % 1 applic topical DAILY PRN dry legs 07/01/23 10/30/23 History topical cream acetaminophen 325 mg tablet 650 mg (2 x 325 mg) PO Q4H PRN 07/04/23 10/30/23 Rx pain #30 tabs albuterol sulfate 2.5 mg/3 mL 2.5 mg (3 mL) inhalation Q6H PRN 07/04/23 10/30/23 Rx (0.083 %) solution for nebulization Shortness Of Breath #180 mL magnesium 250 mg tablet 250 mg PO HS #30 tabs 07/04/23 10/30/23 Rx guaifenesin 600 mg tablet, 1,200 mg PO Q12 PRN Congestion 10/30/23 10/30/23 History extended release 12 hr (Mucinex) losartan 100 mg tablet 100 mg PO QAM 10/30/23 10/30/23 History Past Med/Surg History Problem List (Updated 10/30/23 @ 16:54 by Salma Boo MD) Acute respiratory failure with hypoxemia Cerebrovascular disease (Acute) Elevated troponin I level (Acute) AMS (altered mental status) (Acute) Headache (Acute) Hypoxia (Acute) Pneumonia (Acute) Carpal tunnel syndrome on right Rotator cuff tear arthropathy of right shoulder SOB (shortness of breath) (Acute) Rhinovirus infection (Acute) Chest pain (Acute) Nausea vomiting and diarrhea Sepsis Hypomagnesemia (Acute) Nausea & vomiting (Acute) Acute neck pain (Acute) Diarrhea (Acute) Headache (Acute) Implantable intrathecal infusion pump present containing hydromorphone SCHMIDT (dyspnea on exertion) (Chronic) Diabetes (Acute) 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) Depressive disorder (Chronic) Intractable low back pain (Chronic) Generalized anxiety disorder (Chronic) Major depressive disorder (Chronic) 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 Panic disorder (Chronic) Encounter for pre-operative examination Bowel and bladder incontinence (Acute) History of fusion of lumbar spine (Chronic) Surgical wound, non healing (Acute) Weakness of lower extremity (Chronic) Hypoxia (Acute) Fracture of transverse process of thoracic vertebra (Acute) Fracture, rib (Acute) Fall (Acute) Restless leg syndrome Epidural hematoma Constipation Lumbar postlaminectomy syndrome (Chronic) Encounter for annual routine gynecological examination COVID-19 virus infection (Acute) Fall (Acute) Syncope (Acute) Hypoxemia (Acute) Back injury (Acute) TEA (acute kidney injury) Elevated CK Acute respiratory failure with hypoxia Pneumonia due to 2019 novel coronavirus Thoracic spine fracture Morbid obesity with BMI of 40.0-44.9, adult DVT prophylaxis Chest wall pain History of thoracic spinal fusion Ambulatory dysfunction Frequent falls Encounter for pre-operative examination Wheezing Lower extremity pain, left (Acute) Left lumbar radiculopathy (Acute) Lumbosacral radiculopathy Shoulder pain, right Right shoulder pain Acute hypotension (Acute) Acute dehydration (Acute) Hypomagnesemia (Acute) Diarrhea (Acute) Lactic acidosis Constipation Hypoxia Low back pain Acute kidney injury Arthritis of shoulder region, right Adhesive capsulitis of right shoulder Rotator cuff arthropathy of right shoulder Chronic laryngitis Laryngopharyngeal reflux (LPR) Right hip pain Claudication of lower extremity Peripheral edema Intermittent (no issues at PAT appt 08/28/22) Therapeutic opioid-induced constipation (OIC) Chronic SI joint pain Neurogenic claudication due to lumbar spinal stenosis Lumbar spinal stenosis (Chronic) Lumbar spondylosis (Chronic) Intractable neuropathic pain of lower extremity (Chronic) Degenerative disc disease (Chronic) Sleep apnea (Chronic) NO DEVICE USED Hypertension (Chronic) Diabetes mellitus, type 2 (Chronic) Glucose only fair controlled Diabetic peripheral neuropathy associated with type 2 diabetes mellitus (Chronic) Fatty liver (Chronic) Hyperlipidemia (Chronic) Medical History Hx of fall 04/2020>FELL AND HOSPITALIZED FOR COVID/HYPOXIA AND "BROKE MY BACK>SENT TO [facility]. WAS IN A DRUG INDUCED COMA FOR WEEKS/HAD BACK SURGERY". History of COVID-19 04/2020 (HOSPITALIZED IN [facility])>RESOLVED Hx of gout GERD (gastroesophageal reflux disease) Well controlled and stable Restless leg syndrome History of kidney stones Surgical History History of back surgery 4 TOTAL BACK SURGERIES Most recent - T8-L1 Jun 2020 L2-L5 (prior) (04/2020) History of esophagogastroduodenoscopy (EGD) History of colonoscopy History of tooth extraction H/O varicose vein ligation and stripping Saphenous vein History of open reduction and internal fixation (ORIF) procedure RT ANKLE History of section X 3 History of herniorrhaphy 02/21/15 - Repair of incarcerated incisional hernia with Surgimesh 10cm in diameter resection of incarcerated omentum by Dr Knutson History of appendectomy 10/19/12 - laparoscopic by Dr Herrera Family History Mother Osteoporosis Heart disease Cancer Hypertension Brother Diabetes Family history of diabetes mellitus Daughter Cervical cancer Father Parkinsons Other No family history of adverse response to anesthesia Denies family history of Ovarian cancer Breast cancer Colorectal cancer Stroke Asthma Social History Smoking Status: Never smoker Second Hand Exposure: No; Do You Dip or Chew Tobacco: No; Hx Alcohol Use: No Hx Substance Use: No Preferred Language: Chinese Communication Ability: Effective Visual Impairment: No Limitations Hearing Ability: Normal Passenger Service Representative Required: No Beliefs That Will Affect Care: None marital status: Current Living Situation: Spouse current occupational status: retired current occupation: Retired Feels Safe at Home: Yes Dental Care, Regularly: Yes Physical Activity Frequency: Does not Exercise Assistive Devices: Cane, Nebulizer and Walker Review of Systems Review of Systems: All systems reviewed & are unremarkable except as noted in HPI & below Physical Exam Physical Exam: head atraumatic , normocephalic eyes scleara anicteric, pupils round and reactive to the light neck supple, no JVD Chest decreased breath sounds L> R , rhonchi Heart S1S2 regular , no murmurs abdomen soft, nt, obese, BS present extremities no clubbing, no cyanosis, no edema neuro AAO times 3 Results & Data Results & Data Vital Signs (Past 12 Hours) Vital Signs Temp Pulse Pulse Resp BP BP Pulse Ox 10/30/23 16:07 95 H 10/30/23 14:30 103 H 26 H 96 10/30/23 14:30 124/72 10/30/23 14:20 101 H 28 H 95 10/30/23 14:10 102 H 27 H 96 10/30/23 14:00 121/65 10/30/23 14:00 102 H 34 H 97 10/30/23 14:00 83 19 93 10/30/23 13:52 134/70 10/30/23 13:52 105 H 19 92 10/30/23 13:20 103 H 30 H 92 10/30/23 13:15 104 H 27 H 90 10/30/23 13:15 121/71 10/30/23 13:10 103 H 36 H 91 10/30/23 13:00 106 H 29 H 92 10/30/23 12:50 106 H 33 H 92 10/30/23 12:40 106 H 36 H 92 10/30/23 12:30 107/84 10/30/23 12:30 109 H 37 H 92 10/30/23 12:21 110 H 10/30/23 12:20 108 H 35 H 92 10/30/23 12:16 108 H 22 112/71 92 10/30/23 12:15 112/71 10/30/23 12:15 109 H 36 H 91 10/30/23 12:14 110 H 39 H 90 10/30/23 11:16 36.6 C 113 H 16 115/70 93 O2 Del Method O2 Flow Rate 10/30/23 16:07 10/30/23 14:30 05/30/24 14:30 10/30/23 14:20 10/30/23 14:10 10/30/23 14:00 10/30/23 14:00 10/30/23 14:00 Nasal Cannula 3 10/30/23 13:52 10/30/23 13:52 10/30/23 13:20 10/30/23 13:15 10/30/23 13:15 10/30/23 13:10 10/30/23 13:00 10/30/23 12:50 10/30/23 12:40 10/30/23 12:30 10/30/23 12:30 10/30/23 12:21 10/30/23 12:20 10/30/23 12:16 Nasal Cannula 3 10/30/23 12:15 10/30/23 12:15 10/30/23 12:14 10/30/23 11:16 Nasal Cannula 2 Laboratory Results Abnormal lab results 10/30/23 10/30/23 10/30/23 Range/Units 11:17 11:36 12:41 WBC 21.94 H (4.8-10.8) K/ul RBC 4.13 L (4.20-5.40) M/uL RDW Std Deviation 50.3 H (36.4-46.3) fL RDW Coeff of Manas 15.1 H (11.5-14.5) % Neut # (Auto) 17.76 H (1.40-6.50) K/uL Miner # (Auto) 1.17 H (0.11-0.59) K/uL Immature Gran # (Auto) 0.91 H (0.01-0.20) K/uL PT (9.0-12.0) Seconds Sodium 131 L (136-145) mmol/L Chloride 97 L (98-107) mmol/L BUN/Creatinine Ratio 24.2 H (10-20) Glucose 148 H (70-99(Fasting)) mg/dl POC Glucose (70-99) mg/dl Lactate 3.8 H* (0.4-2.0) mmol/L Troponin I High Sens 47.2 H (0-14) pg/ml C-Reactive Protein 41.18 H (0-0.5) mg/dl Procalcitonin 5.18 H (0-0.5) ng/ml Urine Protein (Negative) Ur Leukocyte Esterase (Negative) Urine WBC (Auto) (0-5) /hpf Urine RBC (Auto) (0-2) /hpf U Epithel Cells (Auto) (0-2) /hpf Urine Bacteria (Auto) (None Seen) 10/30/23 10/30/23 10/30/23 Range/Units 12:42 12:58 14:33 WBC (4.8-10.8) K/ul RBC (4.20-5.40) M/uL RDW Std Deviation (36.4-46.3) fL RDW Coeff of Manas (11.5-14.5) % Neut # (Auto) (1.40-6.50) K/uL Miner # (Auto) (0.11-0.59) K/uL Immature Gran # (Auto) (0.01-0.20) K/uL PT 12.1 H (9.0-12.0) Seconds Sodium (136-145) mmol/L Chloride (98-107) mmol/L BUN/Creatinine Ratio (10-20) Glucose (70-99(Fasting)) mg/dl POC Glucose 154 H (70-99) mg/dl Lactate (0.4-2.0) mmol/L Troponin I High Sens 14.9 H D (0-14) pg/ml C-Reactive Protein (0-0.5) mg/dl Procalcitonin (0-0.5) ng/ml Urine Protein (Negative) Ur Leukocyte Esterase (Negative) Urine WBC (Auto) (0-5) /hpf Urine RBC (Auto) (0-2) /hpf U Epithel Cells (Auto) (0-2) /hpf Urine Bacteria (Auto) (None Seen) 10/30/23 Range/Units 14:35 WBC (4.8-10.8) K/ul RBC (4.20-5.40) M/uL RDW Std Deviation (36.4-46.3) fL RDW Coeff of Manas (11.5-14.5) % Neut # (Auto) (1.40-6.50) K/uL Miner # (Auto) (0.11-0.59) K/uL Immature Gran # (Auto) (0.01-0.20) K/uL PT (9.0-12.0) Seconds Sodium (136-145) mmol/L Chloride (98-107) mmol/L BUN/Creatinine Ratio (10-20) Glucose (70-99(Fasting)) mg/dl POC Glucose (70-99) mg/dl Lactate (0.4-2.0) mmol/L Troponin I High Sens (0-14) pg/ml C-Reactive Protein (0-0.5) mg/dl Procalcitonin (0-0.5) ng/ml Urine Protein 1+ H (Negative) Ur Leukocyte Esterase 2+ H (Negative) Urine WBC (Auto) 6-10 H (0-5) /hpf Urine RBC (Auto) 3-5 H (0-2) /hpf U Epithel Cells (Auto) 3-5 H (0-2) /hpf Urine Bacteria (Auto) 1+ H (None Seen) Diagnostic Findings Head CT 10/30/23 11:17 CT OF THE HEAD WITHOUT CONTRAST CLINICAL HISTORY: neuro deficit, acute stroke suspected COMPARISON STUDY: MRI of the brain November 15, 2022. Head CT June 30, 2023. TECHNIQUE: Helical axial images of the head were obtained without IV contrast. Automated exposure control was utilized for the study. A dose lowering technique was utilized adhering to the principles of ALARA. FINDINGS: No acute intracranial hemorrhage, midline shift or mass effect is present. The ventricular system is unremarkable. The basal cisterns are patent. No extra-axial collections are present. There are no findings to suggest acute dural sinus thrombosis or acute territorial infarct. White matter hypodensities are unchanged and favor small vessel disease. There is mild sinus mucosal thickening. There are minimal secretions within the left sphenoid sinus. IMPRESSION: No acute intracranial findings. No change in appearance of the brain. ACT 112: Negative or not required by law. Electronically signed by: Nir Jerome M.D. 10/30/2023 2:03 PM Head CTA 10/30/23 11:17 CTA ANGIOGRAPHY OF THE HEAD CLINICAL HISTORY: neuro deficit, acute stroke suspected COMPARISON STUDY: MRI of the brain February 15, 2023. Head CT June 30, 2023. TECHNIQUE: Helical axial images of the head were obtained following uneventful intravenous administration of 119 cc of Optiray. Sagittal and coronal reconstructions were viewed as well as maximal intensity projections on an independent 3-D workstation. Automated exposure control was utilized for the study. A dose lowering technique was utilized adhering to the principles of ALARA. FINDINGS: No acute intracranial hemorrhage is identified on the head CT which will be reported separately. Ventricular system is normal. Basal cisterns are patent. White matter hypodensities are unchanged. There is extensive plaque within the bilateral cavernous carotids with mild stenosis. There is severe stenosis of the mid right middle cerebral artery on image 161 of [id number]. The right sylvian branches are patent. The left M1 and M2 segment are patent. The bilateral A1 and A2 segment are patent. No intracranial aneurysm. The distal right vertebral artery is diminutive. There is also severe stenosis within the basilar artery which is diminutive. persistence of the right posterior shoulder is noted. There is a large left posterior communicating artery. The bilateral posterior cerebral arteries are patent. No definite acute vessel occlusion is identified. IMPRESSION: 1. Severe stenosis of the right middle cerebral artery. Diminutive intracranial portion of the left vertebral artery and basilar artery with severe stenosis. persistence of the right STUDENT LOAN COUNSELOR and a large left posterior communicating artery. 2. No definite acute intracranial vessel occlusion. No intracranial aneurysm. 3. Extensive calcified atherosclerotic plaque within the bilateral cavernous carotids with mild stenosis. ACT 112: Negative or not required by law. Electronically signed by: Nir Jerome M.D. 10/30/2023 2:10 PM Neck CTA 10/30/23 11:17 CT ANGIOGRAPHY OF THE NECK WITH CONTRAST CLINICAL HISTORY: neuro deficit, acute stroke suspected COMPARISON STUDY: Neck CT March 19, 2020. Technique: CT angiography of the carotid and vertebral arteries was obtained using Optiray and 3D reconstruction on an independent workstation. NASCET criteria was utilized. Automated exposure control was utilized for the study. A dose lowering technique was utilized adhering to the principles of ALARA. Findings: Extensive left upper lobe consolidation is partially imaged on this exam. 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 No cervical spine fractures are present. There is no cervical lymphadenopathy. The left vertebral artery is diminutive. No focal is identified within portions of the left vertebral artery with distal reconstitution. The right vertebral artery is patent. Long segment mixed calcified and noncalcified plaque within the proximal right internal carotid artery results in mild stenosis with 20% narrowing. There is moderate plaque at the left carotid bifurcation. This results in 60% stenosis of the proximal left internal carotid artery and the distal left common carotid artery. IMPRESSION: 1. 60% stenosis at the left carotid bifurcation, as described above. 2. Mild stenosis within the proximal right internal carotid artery. 3. Diminutive left vertebral artery with trace flow with apparent areas of occlusion distal reconstitution. The findings are age indeterminate. An underlying dissection would be difficult to exclude. 4. Extensive left upper lobe consolidation partially imaged on this exam. This favors pneumonia. Radiographic follow-up to ensure resolution is recommended. ACT 112: Negative or not required by law. Electronically signed by: Nir Jerome M.D. 10/30/2023 2:52 PM Chest X-Ray 10/30/23 11:52 XR chest 1V portable HISTORY: Shortness of breath. Chest pain. COMPARISON: Chest 09/08/2023. FINDINGS: There are low lung volumes. No pneumothorax. No pleural effusions. The heart is mildly enlarged. This remains unchanged. No acute fractures identified. Thoracolumbar spinal fusion hardware again noted. Peripheral wedge-shaped density noted within the left midlung zone. This is new compared the prior study. The right lung is clear. IMPRESSION: There is a new peripheral wedge-shaped density within left midlung zone. This will be better assessed on the same day chest CTA. ACT 112: Negative or not required by law. Electronically signed by: Oc Rosas M.D. 10/30/2023 1:03 PM Chest CTA 10/30/23 12:52 CT angio chest PE protocol CLINICAL HISTORY: PE TECHNIQUE: Multidetector row helical CT of the chest was performed with angiographic protocol. Coronal and sagittal reformations were obtained. Coronal and sagittal MIPS were obtained from the axial data set and were submitted for review. Automated dose lowering techniques and/or adjustment according to patient size were utilized for this exam. CT DOSE: 1767.34 mGy.cm Comparison: Comparison is made to CT chest 07/01/2023 FINDINGS: Lungs and pleura: Consolidative opacities are seen in the left lung. No pneumoperitoneum. Heart and pericardium: Cardiomegaly is seen with biatrial enlargement. Vessels: Evaluation for pulmonary embolism is limited due to suboptimal contrast timing. No evidence of central, lobar, or segmental embolus. Mediastinum and zia: 11 mm aortopulmonary window node. Additional prominent mediastinal lymph nodes are seen. Chest wall and lower neck: A subcentimeter right lower cervical node is seen. Abdomen: Unremarkable. Bones: Degenerative changes in the thoracic spine. Posterior fixation hardware is seen in the lower thoracic spine extending into the lumbar spine. IMPRESSION: 1. No pulmonary embolus. 2. Left lung consolidations compatible with pneumonia. ACT 112: Negative or not required by law. Electronically signed by: Ihsan Melgar M.D. 10/30/2023 2:18 PM Code Status & VTE Plan Code Status full VTE Prophylaxis Plan VTE Prophylaxis will be ordered: Yes PG Care Time/CCT Total # of Minutes Spent Total Time Spent with Patient: Total time spent is greater than 50% in coordination of care (as documented) at patient's floor/unit and/or counseling patient: Coding Level of Care Code 45673 INT INP/OBS CARE 3/75MIN Diagnoses Pneumonia J18.9 Laterality: left Lung location: unspecified part of lung Pneumonia type: due to unspecified organism Acute respiratory failure with hypoxemia J96.01 Elevated troponin I level R79.89 Headache R51.9 Headache chronicity pattern: unspecified pattern Headache type: unspecified Intractability: not intractable Implantable intrathecal infusion pump present Z96.89 Neurogenic claudication due to lumbar spinal stenosis M48.062 Type 2 diabetes mellitus without complication, without long-term current use of insulin E11.9 Diabetes mellitus type: type 2 Diabetes mellitus network developer insulin use: without chcf use Diabetes mellitus complication status: without complication (1) Pneumonia Laterality: left Lung location: unspecified part of lung Pneumonia type: due to unspecified organism Qualified Code(s): J18.9 - Pneumonia, unspecified organism (4) Headache Headache chronicity pattern: unspecified pattern Headache type: unspecified Intractability: not intractable Qualified Code(s): R51.9 - Headache, unspecified (7) Diabetes Diabetes mellitus type: type 2 Diabetes mellitus chcf insulin use: without network developer use Diabetes mellitus complication status: without complication Qualified Code(s): E11.9 - Type 2 diabetes mellitus without complications
[2023-10-30] MEDS: AZITHROMYCIN 500 MG in DEXTROSE 5% 250 ML IV ONE (17:41)
[2023-10-30 17:47] LABS: Chol HDL Ratio 2.3 (0-5)
[2023-10-30] MEDS: LACTATED RINGER'S 1,000 ML IV SCH (17:51)
[2023-10-30 17:53] LABS: Troponin I High Sensitivity 17.3 pg/ml (0-14)
[2023-10-30] MEDS: ASPIRIN 81 MG ECTAB PO ONE (20:04)
[2023-10-30] MEDS ORDERED: metFORMIN HCL 500 MG TAB PO SCH (21:00)
[2023-10-30] MEDS: INSULIN ASPART PER UNIT CHARGE SC SCH (21:14)
[2023-10-30] MEDS: MAGNESIUM HYDROXIDE SUSP 30 ML UDC PO PRN (21:15)
[2023-10-30] MEDS: GABAPENTIN 300 MG CAP PO SCH (22:11)
[2023-10-30] MEDS: DULoxetine HCL 60 MG CAP PO SCH (22:11)
[2023-10-31] MEDS: ACETAMINOPHEN 325 MG TAB PO PRN (05:34)
[2023-10-31] MEDS: POLYETHYLENE (MIRALAX) 17 GM PACK PO PRN (05:34)
[2023-10-31] MEDS ORDERED: glipiZIDE ER 2.5 MG TABCR PO SCH (07:00)
[2023-10-31 08:20] LABS: Hematocrit (blood only) 36.4 % (37.0-47.0); Hemoglobin 11.8 g/dl (12.0-16.0); Mean Corpuscular Hemoglobin 29.8 pg (25.0-34.0); Mean Corpuscular Hgb Conc 32.4 g/dL (32.0-36.0); Mean Corpuscular Volume 91.9 fL (80.0-100.0); Mean Platelet Volume 10.2 fL (9.4-12.4); Platelet Count 218 K/uL (130-400); RDW Coefficient of Variation 14.9 % (11.5-14.5); RDW Standard Deviation 50.4 fL (36.4-46.3); Red Blood Count 3.96 M/uL (4.20-5.40)
[2023-10-31 08:58] LABS: Potassium 4.1 mmol/L (3.5-5.1)
--- NOTE | 2023-10-31 08:58 | XCELERA ---
[id number]
[2023-10-31 09:03] LABS: BUN Creatinine Ratio 30.2 (10-20); Creatinine Clr Calc Pharmacy 81.7 ml/min; Est GFR (African American) 104.6 ml/min; Est GFR (Non-African American) 90.2 ml/min
[2023-10-31] MEDS: PSYLLIUM or GUAR GUM FIBER 4GM PACKET PO SCH (09:28)
[2023-10-31] MEDS: LOSARTAN POTASSIUM 50 MG TAB PO SCH (09:39)
[2023-10-31] MEDS: PANTOprazole 40 MG TAB PO SCH (09:39)
[2023-10-31] MEDS: ATORVASTATIN 40 MG TAB PO SCH (09:40)
[2023-10-31] MEDS: amLODIPine BESYLATE 5 MG TAB PO SCH (09:40)
[2023-10-31] MEDS: ASPIRIN 81 MG ECTAB PO SCH (09:41)
--- NOTE | 2023-10-31 10:08 | Neurology Consultation ---
Date of Consultation October 31, 2023 Assessment & Plan (1) Acute encephalopathy: (2) Headache: (3) Basilar artery stenosis: (4) Cerebrovascular disease: (5) Lumbosacral radiculopathy: (6) Diabetic peripheral neuropathy associated with type 2 diabetes mellitus: Plan This patient had subacute onset of a generalized, nonspecific headache with some mild but acute encephalopathy coming to the emergency room October 29. The etiology of the headache is likely secondary to her pneumonia infection and/or early sepsis. It is much improved today. The patient had no evidence of stroke or meningeal signs, and this morning she has no significant encephalopathy. CT angiography of the head and neck showed multiple/significant arterial issues including severe right middle cerebral artery stenosis, distal left vertebral occlusion versus stenosis and a basilar artery stenosis. There was some lesser carotid stenoses. This would put her at great risk for stroke and she has other risk factors including hypertension and diabetes. Her lipids have been quite controlled on atorvastatin. Patient has longstanding lumbar spine issues with spinal stenosis postsurgery, chronic pain and lumbosacral radiculopathy. The right leg is chronically weak from her lumbar spine. She has a pain pump which helps as well. Patient has a significant polyneuropathy involving sensory and motor fibers, likely due to her diabetes. She is on a high dose of gabapentin and duloxetine. These do help control her chronic pain issues. Patient has a history of anxiety depression which is fairly well-controlled on duloxetine. Recommendations: 1. Recommend clopidogrel 75 mg daily instead of 81 mg aspirin. There is no indication for dual antiplatelet therapy at this time. Clopidogrel, in my opinion, would do a better job of keeping the vessels open (especially the basilar artery) compared to aspirin. 2. Treat headache as you are doing, and if needed, consider ketorolac IV, Tylenol, or other nonsteroidal anti-inflammatory. There is no need for additional medicine for the headache at this time. 3. Continue headaches treating this pneumonia and waiting for confirmatory cultures regarding sepsis 4. Continue gabapentin 900 mg 3 times a day for now. 5. Continue duloxetine 60 mg twice a day. Consideration could be given to lowering this medication as an outpatient. 6. I see no necessity for an MRI of the brain at this time. I am uncertain if the pain pump is compatible with an MRI however. 7. Patient should follow-up with PCP and consider repeating CT angiography of the head and neck in 6 to 12 months. Overall, I spent a total of 120 minutes with this case including review of records, review of CT and other films, direct evaluation the patient at bedside, report generation, and discussion of the case with the patient and Dr. Zamora at bedside including differential diagnosis and treatment options. History of Present Illness Reason for Consultation: Patient is a 73-year-old, who I was asked to see at the request of Dr. Boo, for neurologic consultation regarding headache and other issues. Requesting Physician: Dr. Boo Attending Physician: Luis Zamora MD History of Present Illness This patient has a longstanding history of hypertension, type 2 diabetes, anxiety and depression, dyslipidemia, and restless leg syndrome. For the last 5 years, she has had low back and lower extremity issues resulting in multiple lumbar spine surgeries and finally, about 2 years ago, a pain pump placed by pain management. Between the pain pump, and medications such as gabapentin and duloxetine, her low back and lower extremity pain is fairly well-controlled. She does have some right SI issues and some chronic weakness in her right lower extremity. In September 2021 I performed EMG and nerve conduction studies and found a severe polyneuropathy in the legs with very mild lumbosacral radiculopathy bilaterally. Chronically, she has numb feet and lower legs. The patient has a history of bowel incontinence, since her lumbar spine surgery in 2020. She has no urinary incontinence. Patient has a history of anxiety depression and her mood is quite stable on current medication. Over the last 3 to 4 days prior to admission, the patient had gradual onset of a generalized headache. Her left neck was tight as well as pain in her left lateral thorax up into the left. This headache was an achy throbbing type of pain and peaked yesterday October 29. By October 29, she had some confusion and forgetfulness as well as some shortness of breath and a generalized sense of weakness. She arrived to the emergency room October 29 at 1116, with a temperature of 36.6, pulse 113, respiratory rate 16, blood pressure 115/70, and O2 saturation 93%. Neurologic examination revealed some slow speech but no obvious encephalopathy and no focal findings. She did not have meningeal signs. CBC showed elevated white count (neutrophils) and borderline anemia. CHEM profile revealed a mildly low sodium, mildly elevated glucose, and elevated lactate, troponin, CRP and procalcitonin. Urinalysis had some cells but cultures of urine and blood are pending. CT scan of the head was unremarkable. CT angiography of the head and neck revealed severe right middle cerebral artery stenosis, small stenotic left vertebral intracranially and the basilar artery, and a 60% stenosis of the left carotid bifurcation. Proximal right ICA was mildly stenotic and there was occlusion distally in the left vertebral. Chest x-ray showed a wedge-like consolidation in the left midlung and CT chest confirmed left midlung pneumonia. This morning, her headache is markedly improved (perhaps 4 out of 10 at best) and she has no confusion. Her pain in the left neck and chest are improved as well. CBC showed a white count of 18.5 this morning and a glucose of 134. Liver profile was unremarkable. Allergies Allergy/AdvReac Type Severity Reaction Status Date / Time cefuroxime AdvReac Intermediate upset Verified 10/30/23 15:35 stomach prochlorperazine AdvReac Intermediate Confusion Verified 10/30/23 15:35 [From Compazine] Home Medications Medication Instructions Recorded Confirmed Type amlodipine 5 mg tablet 5 mg PO QAM 02/09/18 10/30/23 History albuterol sulfate 90 mcg/actuation 2 puffs inhalation Q4H PRN 08/08/19 10/30/23 History aerosol inhaler shortness of breath or wheezing atorvastatin 40 mg tablet 40 mg PO QAM 06/05/20 10/30/23 History glipizide 2.5 mg tablet, extended 2.5 mg PO QAM 06/05/20 10/30/23 History release 24 hr metformin 1,000 mg tablet 1,000 mg PO BID 06/05/20 10/30/23 History pantoprazole 40 mg tablet,delayed 40 mg PO QAM 06/05/20 10/30/23 History release gabapentin 300 mg capsule 900 mg PO TID 08/07/20 10/30/23 History multivitamin 1 tab PO QAM 08/28/22 10/30/23 History duloxetine 60 mg capsule,delayed 60 mg PO BID #180 caps 10/30/22 10/30/23 Rx release (Cymbalta) psyllium husk (with sugar) 3.4 2 tbsp PO QAM 07/01/23 10/30/23 History gram/7 gram oral powder (Metamucil (with sugar)) triamcinolone acetonide 0.1 % 1 applic topical DAILY PRN dry legs 07/01/23 10/30/23 History topical cream acetaminophen 325 mg tablet 650 mg (2 x 325 mg) PO Q4H PRN 07/04/23 10/30/23 Rx pain #30 tabs albuterol sulfate 2.5 mg/3 mL 2.5 mg (3 mL) inhalation Q6H PRN 07/04/23 10/30/23 Rx (0.083 %) solution for nebulization Shortness Of Breath #180 mL magnesium 250 mg tablet 250 mg PO HS #30 tabs 07/04/23 10/30/23 Rx guaifenesin 600 mg tablet, 1,200 mg PO Q12 PRN Congestion 10/30/23 10/30/23 History extended release 12 hr (Mucinex) losartan 100 mg tablet 100 mg PO QAM 10/30/23 10/30/23 History Patient History Medical History Hx of fall 04/2020>FELL AND HOSPITALIZED FOR COVID/HYPOXIA AND "BROKE MY BACK>SENT TO [facility]. WAS IN A DRUG INDUCED COMA FOR WEEKS/HAD BACK SURGERY". History of COVID-19 04/2020 (HOSPITALIZED IN [facility])>RESOLVED Hx of gout GERD (gastroesophageal reflux disease) Well controlled and stable Restless leg syndrome History of kidney stones Surgical History History of back surgery 4 TOTAL BACK SURGERIES Most recent - T8-L1 Jun 2020 L2-L5 (prior) (04/2020) History of esophagogastroduodenoscopy (EGD) History of colonoscopy History of tooth extraction H/O varicose vein ligation and stripping Saphenous vein History of open reduction and internal fixation (ORIF) procedure RT ANKLE History of section X 3 History of herniorrhaphy 02/21/15 - Repair of incarcerated incisional hernia with Surgimesh 10cm in diameter resection of incarcerated omentum by Dr Knutson History of appendectomy 10/19/12 - laparoscopic by Dr Herrera Family History Mother , age 77 of heart issues Osteoporosis Heart disease Cancer Hypertension Brother Diabetes Family history of diabetes mellitus Daughter Cervical cancer Father , Patient age 91 with Parkinson's disease Parkinsons Other No family history of adverse response to anesthesia Denies family history of Ovarian cancer Breast cancer Colorectal cancer Stroke Asthma Social History (Updated 10/31/23 @ 09:46 by Sunil Chairez MD) Smoking Status: Never smoker Second Hand Exposure: No; Do You Dip or Chew Tobacco: No; Hx Alcohol Use: No Hx Substance Use: No Preferred Language: Uzbek Communication Ability: Effective Visual Impairment: No Limitations Hearing Ability: Normal Braille Teacher Required: No Beliefs That Will Affect Care: Yazdanism Yazdanism Beliefs: Sabianism marital status: Current Living Situation: Spouse current occupational status: retired 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 Feels Safe at Home: Yes Dental Care, Regularly: Yes Physical Activity Frequency: Does not Exercise Assistive Devices: Cane, Denture - Upper, Denture - Lower, Glasses and Walker Review of Systems Constitutional: + sweats, + fatigue and + weakness; no f ever Eyes: no diplopia, no eye pain and no worsening vision Ear, Nose, Mouth, Throat: no ear pain, no tinnitus, no hearing loss, no dizziness, no snoring, no hoarseness and no dysphagia Respiratory: no cough and no dyspnea Cardiovascular: no chest pain, no palpitations and no lightheadedness Gastrointestinal: no abdominal pain, no nausea and no vomiting Genitourinary: no dysuria, no urinary frequency and no urinary incontinence Musculoskeletal: + back pain and + neck pain; no radicula r pain, no joint pain and no myalgia Integumentary: no rash and no lesions Neurologic: + gait abnormality, + localized weakness , + numbness and + headache(s); no generalized weakness, no tingling, no tremor(s), no abnormal movements, no abnormal speech, no confusion and no memory loss Psychiatric: + anxiety; no depression, no irritabilit y, no difficulty concentrating, no confusion and no hallucinations Endocrine: no fatigue and no flushing Hematologic / Lymphatic: no easy bleeding and no easy bruising Allergy / Immunological: no urticaria and no problem reported Exam (Neuro) Physical Exam: The patient is right-handed. The patient is awake, alert, and attentive. Speech is normal without any aphasia or dysarthria. Mentation and thought processes are intact, with full orientation and normal fund of knowledge. Mood and affect are normal and appropriate. Appearance and grooming are normal. Short and long-term memory are intact. Pupils are 4 mm bilaterally and reactive to light. Extraocular eye muscles are intact without nystagmus. Visual acuity and visual villanueva seem normal grossly to confrontation. There are no deficits to sensation in the face in all 3 distributions of the fifth cranial nerve bilaterally. Corneal reflexes are positive bilaterally. Facial strength and symmetry was normal bilaterally. Hearing seems intact grossly to voice and finger rub bilaterally. Palate moves well without asymmetry. There is normal sternocleidomastoid and trapezius strength bilaterally. Tongue is midline with good strength bilaterally. Neck has a full range of motion without discomfort. There are no cervical bruits bilaterally. There are no cranial or ocular bruits. Heart is without murmur. There is a regular rhythm and rate. Cervical spine was tender to palpation on the left side extending in the left shoulder. There was some mild spasm compared to the right. Thoracic and lumbar spine were nontender to palpation. Stance sitting up in bed is normal. She struggled a bit to stand up on her own but her stance showed some wide base. She limps favoring the right leg as she walked cautiously use. She did better with a walker by herself. With outstretched arms there is no drift. There are no resting, postural, or action tremors. There is no ataxia with finger to nose testing. There is good facility in the hands. No other abnormal involuntary movements are noted. Motor strength is 5/5 diffusely in the arms bilaterally including deltoids, biceps, triceps, brachioradialis, wrist flexors and extensors, umbrella finisher, and intrinsic hand muscles. Motor strength is 5/5 diffusely in the left lower extremity, including hip flexors, quadriceps, hamstrings, gastrocnemius, tibialis anterior, tibialis posterior, and Peroneii muscles bilaterally. The right lower extremity was 4/5 proximally with the hip flexor and quadriceps closer to 5/5 distally. Toe extensors are normal and there is good bulk in the extensor digitorum brevis muscles bilaterally. The limbs have good tone without rigidity or spasticity. There is no atrophy noted in the muscles. Muscle bulk is normal, there is no tenderness to palpation, no myotonia to percussion, and no fasciculations seen. Sensory examination reveals decreased sensation feet bilaterally Reflexes are 1/4 in the biceps triceps tendons bilaterally. Brachioradialis, quadriceps, and Achilles tendon reflexes were absent bilaterally. Toes are downgoing with plantar stimulation bilaterally. Peripheral pulses are present and of normal quality distally in all 4 limbs. There is no peripheral edema noted in the limbs. Results & Data Vital Signs (Past 12 Hours) Vital Signs Temp Pulse Resp BP Pulse Ox O2 Del Method 10/31/23 07:51 36.5 C 78 19 136/78 94 Nasal Cannula PG Care Time/CCT Total # of Minutes Spent Total Time Spent with Patient: Total time spent is greater than 50% in coordination of care (as documented) at patient's floor/unit and/or counseling patient: Coding Level of Care Code 30271 INT INP/OBS CARE 3/75MIN Diagnoses Acute encephalopathy G93.40 Headache R51.9 Headache chronicity pattern: unspecified pattern Headache type: unspecified Intractability: not intractable Basilar artery stenosis I65.1 Cerebrovascular disease I67.9 Lumbosacral radiculopathy M54.17 Diabetic peripheral neuropathy associated with type 2 diabetes mellitus E11.42 Time Spent (min) 120 (2) Headache Headache chronicity pattern: unspecified pattern Headache type: unspecified Intractability: not intractable Qualified Code(s): R51.9 - Headache, unspecified
[2023-10-31] MEDS: cefTRIAXone SODIUM 2,000 MG/50 ML BAG IV SCH (13:01)
--- NOTE | 2023-10-31 13:56 | Hospitalist Progress Note ---
Date of Service October 31, 2023 Assessment & Plan (1) Pneumonia: Plan: left upper lung pneumonia due to possible aspiration, chronic narcotics use , recent episode of vomiting on Friday On ceftriaxone and azithromycin Clinically improving Lactic acidosis resolved Leukocytosis improved from 21,000-18,000 Follow blood cultures (2) Sepsis: Plan: Secondary to pneumonia. Met criteria for sepsis Improving with treatment of pneumonia (3) Acute respiratory failure with hypoxemia: Plan: due to pneumonia, ? asthma IV antibiotics nebs oxygen suppl to keep Osat >92 % (4) Elevated troponin I level: Plan: demand ischemia ? due to acute respiratory failure repeat trop ECHO baby asa (5) Headache: Plan: patient with significant cerebrovascular disease Patient was seen in consultation by neurology for multiple arterial issues including right middle cerebral artery, left vertebral artery, basilar artery. Neurology recommended switching from aspirin to Plavix to prevent stroke. Order placed. Per neurology, no need for MRI currently. (6) Implantable intrathecal infusion pump present: Plan: Dilaudid pump (7) Neurogenic claudication due to lumbar spinal stenosis: Plan: Dilaudid pump, no new neurological deficit (8) Diabetes: Plan: on Metformin, sulfonylurea, start insulin sliding scale (9) Metabolic encephalopathy: Plan: Per ED documentation, patient was confused Resolved Patient is back to her baseline. Most likely due to pneumonia and sepsis. Plan Consulted PT and OT Admission and Anticipated Discharge Date Admission Date: October 30, 2023 Subjective Patient feels better overall. She denies chest pain or shortness of breath at this time. Met with the patient along with Dr. Chairez and his team in the room. Review of Systems Review of Systems: All systems reviewed & are unremarkable except as noted in Subjective Physical Exam Physical Exam: General: Awake, conversant Heart: S1, S2/regular rate and rhythm, no murmur rubs or gallops Lungs: Crackles in the left upper lung zone.. Normal effort Abdomen: Soft/nontender/nondistended. No hepatosplenomegaly Extremities: No clubbing/cyanosis. No edema Behavior: Appropriate, cooperative Results & Data Results & Data Vital Signs (Past 12 Hours) Vital Signs Temp Pulse Resp BP Pulse Ox O2 Del Method O2 Flow Rate 10/31/23 12:13 Nasal Cannula 3 10/31/23 11:32 36.3 C L 68 18 118/78 96 Nasal Cannula 3 10/31/23 07:51 36.5 C 78 19 136/78 94 Nasal Cannula 3 Laboratory Results Abnormal lab results 10/30/23 10/30/23 10/30/23 Range/Units 12:41 12:58 14:33 WBC (4.8-10.8) K/ul RBC (4.20-5.40) M/uL Hgb (12.0-16.0) g/dl Hct (37.0-47.0) % RDW Std Deviation (36.4-46.3) fL RDW Coeff of Manas (11.5-14.5) % PT 12.1 H (9.0-12.0) Seconds BUN/Creatinine Ratio (10-20) Glucose (70-99(Fasting)) mg/dl POC Glucose (70-99) mg/dl Troponin I High Sens 14.9 H D (0-14) pg/ml C-Reactive Protein 41.18 H (0-0.5) mg/dl Procalcitonin 5.18 H (0-0.5) ng/ml Urine Protein (Negative) Ur Leukocyte Esterase (Negative) Urine WBC (Auto) (0-5) /hpf Urine RBC (Auto) (0-2) /hpf U Epithel Cells (Auto) (0-2) /hpf Urine Bacteria (Auto) (None Seen) 10/30/23 10/30/23 10/30/23 Range/Units 14:35 17:12 17:35 WBC (4.8-10.8) K/ul RBC (4.20-5.40) M/uL Hgb (12.0-16.0) g/dl Hct (37.0-47.0) % RDW Std Deviation (36.4-46.3) fL RDW Coeff of Manas (11.5-14.5) % PT (9.0-12.0) Seconds BUN/Creatinine Ratio (10-20) Glucose (70-99(Fasting)) mg/dl POC Glucose 158 H (70-99) mg/dl Troponin I High Sens 17.3 H (0-14) pg/ml C-Reactive Protein (0-0.5) mg/dl Procalcitonin (0-0.5) ng/ml Urine Protein 1+ H (Negative) Ur Leukocyte Esterase 2+ H (Negative) Urine WBC (Auto) 6-10 H (0-5) /hpf Urine RBC (Auto) 3-5 H (0-2) /hpf U Epithel Cells (Auto) 3-5 H (0-2) /hpf Urine Bacteria (Auto) 1+ H (None Seen) 10/30/23 10/31/23 10/31/23 Range/Units 20:52 07:43 07:58 WBC 18.50 H (4.8-10.8) K/ul RBC 3.96 L (4.20-5.40) M/uL Hgb 11.8 L (12.0-16.0) g/dl Hct 36.4 L (37.0-47.0) % RDW Std Deviation 50.4 H (36.4-46.3) fL RDW Coeff of Mansa 14.9 H (11.5-14.5) % PT (9.0-12.0) Seconds BUN/Creatinine Ratio 30.2 H (10-20) Glucose 137 H (70-99(Fasting)) mg/dl POC Glucose 194 H 134 H (70-99) mg/dl Troponin I High Sens (0-14) pg/ml C-Reactive Protein (0-0.5) mg/dl Procalcitonin (0-0.5) ng/ml Urine Protein (Negative) Ur Leukocyte Esterase (Negative) Urine WBC (Auto) (0-5) /hpf Urine RBC (Auto) (0-2) /hpf U Epithel Cells (Auto) (0-2) /hpf Urine Bacteria (Auto) (None Seen) 10/31/23 Range/Units 11:39 WBC (4.8-10.8) K/ul RBC (4.20-5.40) M/uL Hgb (12.0-16.0) g/dl Hct (37.0-47.0) % RDW Std Deviation (36.4-46.3) fL RDW Coeff of Manas (11.5-14.5) % PT (9.0-12.0) Seconds BUN/Creatinine Ratio (10-20) Glucose (70-99(Fasting)) mg/dl POC Glucose 110 H (70-99) mg/dl Troponin I High Sens (0-14) pg/ml C-Reactive Protein (0-0.5) mg/dl Procalcitonin (0-0.5) ng/ml Urine Protein (Negative) Ur Leukocyte Esterase (Negative) Urine WBC (Auto) (0-5) /hpf Urine RBC (Auto) (0-2) /hpf U Epithel Cells (Auto) (0-2) /hpf Urine Bacteria (Auto) (None Seen) Diagnostic Findings Head CT 10/30/23 11:17 CT OF THE HEAD WITHOUT CONTRAST CLINICAL HISTORY: neuro deficit, acute stroke suspected COMPARISON STUDY: MRI of the brain November 15, 2022. Head CT June 30, 2023. TECHNIQUE: Helical axial images of the head were obtained without IV contrast. Automated exposure control was utilized for the study. A dose lowering technique was utilized adhering to the principles of ALARA. FINDINGS: No acute intracranial hemorrhage, midline shift or mass effect is present. The ventricular system is unremarkable. The basal cisterns are patent. No extra-axial collections are present. There are no findings to suggest acute dural sinus thrombosis or acute territorial infarct. White matter hypodensities are unchanged and favor small vessel disease. There is mild sinus mucosal thickening. There are minimal secretions within the left sphenoid sinus. IMPRESSION: No acute intracranial findings. No change in appearance of the brain. ACT 112: Negative or not required by law. Electronically signed by: Nir Jerome M.D. 10/30/2023 2:03 PM Head CTA 10/30/23 11:17 CTA ANGIOGRAPHY OF THE HEAD CLINICAL HISTORY: neuro deficit, acute stroke suspected COMPARISON STUDY: MRI of the brain February 15, 2023. Head CT June 30, 2023. TECHNIQUE: Helical axial images of the head were obtained following uneventful intravenous administration of 119 cc of Optiray. Sagittal and coronal reconstructions were viewed as well as maximal intensity projections on an independent 3-D workstation. Automated exposure control was utilized for the study. A dose lowering technique was utilized adhering to the principles of ALARA. FINDINGS: No acute intracranial hemorrhage is identified on the head CT which will be reported separately. Ventricular system is normal. Basal cisterns are patent. White matter hypodensities are unchanged. There is extensive plaque within the bilateral cavernous carotids with mild stenosis. There is severe stenosis of the mid right middle cerebral artery on image 161 of [id number]. The right sylvian branches are patent. The left M1 and M2 segment are patent. The bilateral A1 and A2 segment are patent. No intracranial aneurysm. The distal right vertebral artery is diminutive. There is also severe stenosis within the basilar artery which is diminutive. persistence of the right posterior shoulder is noted. There is a large left posterior communicating artery. The bilateral posterior cerebral arteries are patent. No definite acute vessel occlusion is identified. IMPRESSION: 1. Severe stenosis of the right middle cerebral artery. Diminutive intracranial portion of the left vertebral artery and basilar artery with severe stenosis. persistence of the right COM WRITER and a large left posterior communicating artery. 2. No definite acute intracranial vessel occlusion. No intracranial aneurysm. 3. Extensive calcified atherosclerotic plaque within the bilateral cavernous carotids with mild stenosis. ACT 112: Negative or not required by law. Electronically signed by: Nir Jerome M.D. 10/30/2023 2:10 PM Neck CTA 10/30/23 11:17 CT ANGIOGRAPHY OF THE NECK WITH CONTRAST CLINICAL HISTORY: neuro deficit, acute stroke suspected COMPARISON STUDY: Neck CT March 19, 2020. Technique: CT angiography of the carotid and vertebral arteries was obtained using Optiray and 3D reconstruction on an independent workstation. NASCET criteria was utilized. Automated exposure control was utilized for the study. A dose lowering technique was utilized adhering to the principles of ALARA. Findings: Extensive left upper lobe consolidation is partially imaged on this exam. 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 No cervical spine fractures are present. There is no cervical lymphadenopathy. The left vertebral artery is diminutive. No focal is identified within portions of the left vertebral artery with distal reconstitution. The right vertebral artery is patent. Long segment mixed calcified and noncalcified plaque within the proximal right internal carotid artery results in mild stenosis with 20% narrowing. There is moderate plaque at the left carotid bifurcation. This results in 60% stenosis of the proximal left internal carotid artery and the distal left common carotid artery. IMPRESSION: 1. 60% stenosis at the left carotid bifurcation, as described above. 2. Mild stenosis within the proximal right internal carotid artery. 3. Diminutive left vertebral artery with trace flow with apparent areas of occlusion distal reconstitution. The findings are age indeterminate. An underlying dissection would be difficult to exclude. 4. Extensive left upper lobe consolidation partially imaged on this exam. This favors pneumonia. Radiographic follow-up to ensure resolution is recommended. ACT 112: Negative or not required by law. Electronically signed by: Nir Jerome M.D. 10/30/2023 2:52 PM Chest CTA 10/30/23 12:52 CT angio chest PE protocol CLINICAL HISTORY: PE TECHNIQUE: Multidetector row helical CT of the chest was performed with angiographic protocol. Coronal and sagittal reformations were obtained. Coronal and sagittal MIPS were obtained from the axial data set and were submitted for review. Automated dose lowering techniques and/or adjustment according to patient size were utilized for this exam. CT DOSE: 1767.34 mGy.cm Comparison: Comparison is made to CT chest 07/01/2023 FINDINGS: Lungs and pleura: Consolidative opacities are seen in the left lung. No pneumoperitoneum. Heart and pericardium: Cardiomegaly is seen with biatrial enlargement. Vessels: Evaluation for pulmonary embolism is limited due to suboptimal contrast timing. No evidence of central, lobar, or segmental embolus. Mediastinum and zia: 11 mm aortopulmonary window node. Additional prominent mediastinal lymph nodes are seen. Chest wall and lower neck: A subcentimeter right lower cervical node is seen. Abdomen: Unremarkable. Bones: Degenerative changes in the thoracic spine. Posterior fixation hardware is seen in the lower thoracic spine extending into the lumbar spine. IMPRESSION: 1. No pulmonary embolus. 2. Left lung consolidations compatible with pneumonia. ACT 112: Negative or not required by law. Electronically signed by: Ihsan Melgar M.D. 10/30/2023 2:18 PM PG Care Time/CCT Total # of Minutes Spent Total Time Spent with Patient: Total time spent is greater than 50% in coordination of care (as documented) at patient's floor/unit and/or counseling patient: Coding Level of Care Code 23632 SUB INP/OBS CARE 2/35MIN Diagnoses Pneumonia J18.9 Laterality: left Lung location: unspecified part of lung Pneumonia type: due to unspecified organism Sepsis A41.9 Acute respiratory failure with hypoxemia J96.01 Elevated troponin I level R79.89 Headache R51.9 Headache chronicity pattern: unspecified pattern Headache type: unspecified Intractability: not intractable Implantable intrathecal infusion pump present Z96.89 Neurogenic claudication due to lumbar spinal stenosis M48.062 Type 2 diabetes mellitus without complication, without long-term current use of insulin E11.9 Diabetes mellitus type: type 2 Diabetes mellitus fdc insulin use: without technician terminal and repeater use Diabetes mellitus complication status: without complication Metabolic encephalopathy G93.41 (1) Pneumonia Laterality: left Lung location: unspecified part of lung Pneumonia type: due to unspecified organism Qualified Code(s): J18.9 - Pneumonia, unspecified organism (5) Headache Headache chronicity pattern: unspecified pattern Headache type: unspecified Intractability: not intractable Qualified Code(s): R51.9 - Headache, unspecified (8) Diabetes Diabetes mellitus type: type 2 Diabetes mellitus technician terminal and repeater insulin use: without technician terminal and repeater use Diabetes mellitus complication status: without complication Qualified Code(s): E11.9 - Type 2 diabetes mellitus without complications
[2023-10-31] MEDS: AZITHROMYCIN 500 MG in DEXTROSE 5% 250 ML IV SCH (17:57)
[2023-11-01 07:32] LABS: Hematocrit (blood only) 37.2 % (37.0-47.0); Hemoglobin 11.9 g/dl (12.0-16.0); Mean Corpuscular Hemoglobin 29.1 pg (25.0-34.0); Mean Platelet Volume 10.4 fL (9.4-12.4); Platelet Count 272 K/uL (130-400); RDW Coefficient of Variation 14.8 % (11.5-14.5); RDW Standard Deviation 49.4 fL (36.4-46.3); Red Blood Count 4.09 M/uL (4.20-5.40); White Blood Count 14.18 K/ul (4.8-10.8)
[2023-11-01] MEDS: CLOPIDOGREL BISULFATE 75 MG TAB PO SCH (08:16)
[2023-11-01 09:35] LABS: Potassium 4.3 mmol/L (3.5-5.1)
[2023-11-01 09:41] LABS: BUN Creatinine Ratio 30.8 (10-20); Creatinine Clr Calc Pharmacy 79.2 ml/min; Est GFR (African American) 103.5 ml/min; Est GFR (Non-African American) 89.3 ml/min
--- NOTE | 2023-11-01 13:12 | Hospitalist Progress Note ---
Date of Service November 01, 2023 Assessment & Plan (1) Pneumonia: Plan: left upper lung pneumonia due to possible aspiration, chronic narcotics use , recent episode of vomiting on Friday On ceftriaxone and azithromycin Clinically improving Lactic acidosis resolved Leukocytosis improved from 21,000-14,000 today Follow blood cultures (2) Sepsis: Plan: Secondary to pneumonia. Met criteria for sepsis Improving with treatment of pneumonia (3) Acute respiratory failure with hypoxemia: Plan: due to pneumonia, ? asthma IV antibiotics nebs oxygen suppl to keep Osat >92 % Asked the nurse to titrate O2 down (4) Elevated troponin I level: Plan: demand ischemia ? due to acute respiratory failure repeat trop ECHO baby asa (5) Headache: Plan: patient with significant cerebrovascular disease Patient was seen in consultation by neurology for multiple arterial issues including right middle cerebral artery, left vertebral artery, basilar artery. Neurology recommended switching from aspirin to Plavix to prevent stroke. Order placed. Per neurology, no need for MRI currently. (6) Implantable intrathecal infusion pump present: Plan: Dilaudid pump (7) Neurogenic claudication due to lumbar spinal stenosis: Plan: Dilaudid pump, no new neurological deficit (8) Diabetes: Plan: on Metformin, sulfonylurea, start insulin sliding scale (9) Metabolic encephalopathy: Plan: Per ED documentation, patient was confused Resolved Patient is back to her baseline. Most likely due to pneumonia and sepsis. Plan Consulted PT and OT Admission and Anticipated Discharge Date Admission Date: October 30, 2023 Subjective Patient feels well. Not as sweaty today. Breathing well. Chest pain is still there but improving. Review of Systems Review of Systems: All systems reviewed & are unremarkable except as noted in Subjective Physical Exam 2 Physical Exam: General: Awake, conversant Heart: S1, S2/regular rate and rhythm, no murmur rubs or gallops Lungs: Crackles in the left upper lung zone.. Normal effort Abdomen: Soft/nontender/nondistended. No hepatosplenomegaly Extremities: No clubbing/cyanosis. No edema Behavior: Appropriate, cooperative Results & Data Results & Data Vital Signs (Past 12 Hours) Vital Signs Temp Pulse Resp BP Pulse Ox O2 Del Method O2 Flow Rate 11/01/23 10:10 Nasal Cannula 2 11/01/23 09:58 67 17 133/73 96 Nasal Cannula 2 11/01/23 07:03 36.6 C 73 18 174/81 H 96 Nasal Cannula 3 Laboratory Results Abnormal lab results 10/31/23 10/31/23 11/01/23 Range/Units 16:49 19:45 06:14 WBC 14.18 H (4.8-10.8) K/ul RBC 4.09 L (4.20-5.40) M/uL Hgb 11.9 L (12.0-16.0) g/dl RDW Std Deviation 49.4 H (36.4-46.3) fL RDW Coeff of Manas 14.8 H (11.5-14.5) % BUN/Creatinine Ratio (10-20) Glucose (70-99(Fasting)) mg/dl POC Glucose 232 H 246 H (70-99) mg/dl 11/01/23 11/01/23 11/01/23 Range/Units 07:36 08:30 11:33 WBC (4.8-10.8) K/ul RBC (4.20-5.40) M/uL Hgb (12.0-16.0) g/dl RDW Std Deviation (36.4-46.3) fL RDW Coeff of Manas (11.5-14.5) % BUN/Creatinine Ratio 30.8 H (10-20) Glucose 217 H (70-99(Fasting)) mg/dl POC Glucose 173 H 138 H (70-99) mg/dl PG Care Time/CCT Total # of Minutes Spent Total Time Spent with Patient: Total time spent is greater than 50% in coordination of care (as documented) at patient's floor/unit and/or counseling patient: Coding Level of Care Code 36836 SUB INP/OBS CARE 2/35MIN Diagnoses Pneumonia J18.9 Laterality: left Lung location: unspecified part of lung Pneumonia type: due to unspecified organism Sepsis A41.9 Acute respiratory failure with hypoxemia J96.01 Elevated troponin I level R79.89 Headache R51.9 Headache chronicity pattern: unspecified pattern Headache type: unspecified Intractability: not intractable Implantable intrathecal infusion pump present Z96.89 Neurogenic claudication due to lumbar spinal stenosis M48.062 Type 2 diabetes mellitus without complication, without long-term current use of insulin E11.9 Diabetes mellitus type: type 2 Diabetes mellitus procurement engineer insulin use: without procurement engineer use Diabetes mellitus complication status: without complication Metabolic encephalopathy G93.41 (1) Pneumonia Laterality: left Lung location: unspecified part of lung Pneumonia type: due to unspecified organism Qualified Code(s): J18.9 - Pneumonia, unspecified organism (5) Headache Headache chronicity pattern: unspecified pattern Headache type: unspecified Intractability: not intractable Qualified Code(s): R51.9 - Headache, unspecified (8) Diabetes Diabetes mellitus type: type 2 Diabetes mellitus procurement engineer insulin use: without penitentiary use Diabetes mellitus complication status: without complication Qualified Code(s): E11.9 - Type 2 diabetes mellitus without complications
[2023-11-01] MEDS ORDERED: POLYETHYLENE (MIRALAX) 17 GM PACK PO PRN (14:12)
[2023-11-01] MEDS: bisacodyL 10 MG SUPP PR STA (15:11)
[2023-11-01] MEDS: DOCUSATE SODIUM 100 MG CAP PO SCH (20:35)
[2023-11-02 06:13] LABS: Hematocrit (blood only) 35.8 % (37.0-47.0); Hemoglobin 11.8 g/dl (12.0-16.0); Mean Corpuscular Hemoglobin 29.6 pg (25.0-34.0); Mean Corpuscular Volume 89.7 fL (80.0-100.0); Mean Platelet Volume 10.1 fL (9.4-12.4); Platelet Count 292 K/uL (130-400); RDW Coefficient of Variation 14.7 % (11.5-14.5); RDW Standard Deviation 48.8 fL (36.4-46.3); Red Blood Count 3.99 M/uL (4.20-5.40); White Blood Count 8.63 K/ul (4.8-10.8)
[2023-11-02 06:42] LABS: BUN Creatinine Ratio 31.7 (10-20); Calcium 8.7 mg/dl (8.6-10.3); Creatinine Clr Calc Pharmacy 85.8 ml/min; Est GFR (African American) 106.3 ml/min; Est GFR (Non-African American) 91.7 ml/min; Potassium 3.9 mmol/L (3.5-5.1)
[2023-11-02] MEDS: AZITHROMYCIN 250 MG TAB PO SCH (11:16)
[2023-11-02] MEDS: cephALEXin 500 MG CAP PO SCH (13:02)
--- NOTE | 2023-11-02 14:38 | Hospitalist Progress Note ---
Date of Service November 02, 2023 Assessment & Plan (1) Pneumonia: Plan: left upper lung pneumonia due to possible aspiration, chronic narcotics use , recent episode of vomiting on Friday On ceftriaxone and azithromycin Clinically improving Lactic acidosis resolved Leukocytosis resolved Blood cultures negative Switch to p.o. Keflex and azithromycin (2) Sepsis: Plan: Secondary to pneumonia. Met criteria for sepsis Resolved with treatment of pneumonia (3) Acute respiratory failure with hypoxemia: Plan: due to pneumonia, ? asthma Antibiotics nebs oxygen suppl to keep Osat >92 % Asked the nurse to titrate O2 down Ordered two-step test (4) Elevated troponin I level: Plan: demand ischemia ? due to acute respiratory failure repeat trop ECHO baby asa (5) Headache: Plan: patient with significant cerebrovascular disease Patient was seen in consultation by neurology for multiple arterial issues including right middle cerebral artery, left vertebral artery, basilar artery. Neurology recommended switching from aspirin to Plavix to prevent stroke. Order placed. Per neurology, no need for MRI currently. (6) Implantable intrathecal infusion pump present: Plan: Dilaudid pump (7) Neurogenic claudication due to lumbar spinal stenosis: Plan: Dilaudid pump, no new neurological deficit (8) Diabetes: Plan: on Metformin, sulfonylurea, start insulin sliding scale (9) Metabolic encephalopathy: Plan: Per ED documentation, patient was confused Resolved Patient is back to her baseline. Most likely due to pneumonia and sepsis. Plan Likely discharge tomorrow Treat constipation today Ambulate Full code DVT prophylaxis: Encouraged to ambulate Admission and Anticipated Discharge Date Admission Date: October 30, 2023 Subjective Patient is feeling much better today. She is not sweating as much. She is breathing better. She still has a little bit of chest pain in the left side especially when she takes a deep breath in. She has not had bowel movements yet. Review of Systems Review of Systems: All systems reviewed & are unremarkable except as noted in Subjective Physical Exam Physical Exam: General: Awake, conversant Heart: S1, S2/regular rate and rhythm, no murmur rubs or gallops Lungs: Crackles in the left upper lung zone improved. Normal effort Abdomen: Soft/nontender/nondistended. No hepatosplenomegaly Extremities: No clubbing/cyanosis. No edema Behavior: Appropriate, cooperative Results & Data Results & Data Vital Signs (Past 12 Hours) Vital Signs Temp Pulse Resp BP Pulse Ox O2 Del Method O2 Flow Rate 11/02/23 07:43 37.0 C 70 18 151/79 H 93 Nasal Cannula 1 11/02/23 07:15 Nasal Cannula 1 Laboratory Results Abnormal lab results 11/01/23 11/01/23 11/02/23 Range/Units 16:51 20:34 05:32 RBC 3.99 L (4.20-5.40) M/uL Hgb 11.8 L (12.0-16.0) g/dl Hct 35.8 L (37.0-47.0) % RDW Std Deviation 48.8 H (36.4-46.3) fL RDW Coeff of Manas 14.7 H (11.5-14.5) % Chloride 108 H (98-107) mmol/L BUN/Creatinine Ratio 31.7 H (10-20) Glucose 144 H (70-99(Fasting)) mg/dl POC Glucose 143 H 212 H (70-99) mg/dl 11/02/23 11/02/23 Range/Units 07:36 11:35 RBC (4.20-5.40) M/uL Hgb (12.0-16.0) g/dl Hct (37.0-47.0) % RDW Std Deviation (36.4-46.3) fL RDW Coeff of Manas (11.5-14.5) % Chloride (98-107) mmol/L BUN/Creatinine Ratio (10-20) Glucose (70-99(Fasting)) mg/dl POC Glucose 122 H 140 H (70-99) mg/dl PG Care Time/CCT Total # of Minutes Spent Total Time Spent with Patient: Total time spent is greater than 50% in coordination of care (as documented) at patient's floor/unit and/or counseling patient: Coding Level of Care Code 23747 SUB INP/OBS CARE 2/35MIN Diagnoses Pneumonia J18.9 Laterality: left Lung location: unspecified part of lung Pneumonia type: due to unspecified organism Sepsis A41.9 Acute respiratory failure with hypoxemia J96.01 Elevated troponin I level R79.89 Headache R51.9 Headache chronicity pattern: unspecified pattern Headache type: unspecified Intractability: not intractable Implantable intrathecal infusion pump present Z96.89 Neurogenic claudication due to lumbar spinal stenosis M48.062 Type 2 diabetes mellitus without complication, without long-term current use of insulin E11.9 Diabetes mellitus type: type 2 Diabetes mellitus roasterman insulin use: without roasterman use Diabetes mellitus complication status: without complication Metabolic encephalopathy G93.41 (1) Pneumonia Laterality: left Lung location: unspecified part of lung Pneumonia type: due to unspecified organism Qualified Code(s): J18.9 - Pneumonia, unspecified organism (5) Headache Headache chronicity pattern: unspecified pattern Headache type: unspecified Intractability: not intractable Qualified Code(s): R51.9 - Headache, unspecified (8) Diabetes Diabetes mellitus type: type 2 Diabetes mellitus roasterman insulin use: without usp use Diabetes mellitus complication status: without complication Qualified Code(s): E11.9 - Type 2 diabetes mellitus without complications
[2023-11-03 07:27] LABS: Hematocrit (blood only) 37.6 % (37.0-47.0); Hemoglobin 12.5 g/dl (12.0-16.0); Mean Corpuscular Hemoglobin 29.7 pg (25.0-34.0); Mean Corpuscular Volume 89.3 fL (80.0-100.0); Red Blood Count 4.21 M/uL (4.20-5.40); White Blood Count 8.48 K/ul (4.8-10.8)
[2023-11-03 07:28] LABS: Mean Corpuscular Hgb Conc 33.2 g/dL (32.0-36.0); Mean Platelet Volume 9.7 fL (9.4-12.4); Platelet Count 324 K/uL (130-400); RDW Coefficient of Variation 14.7 % (11.5-14.5); RDW Standard Deviation 48.2 fL (36.4-46.3)
[2023-11-03 07:52] LABS: BUN Creatinine Ratio 25.4 (10-20); Creatinine Clr Calc Pharmacy 87.3 ml/min; Est GFR (African American) 106.9 ml/min; Est GFR (Non-African American) 92.2 ml/min; Potassium 4.1 mmol/L (3.5-5.1)
--- NOTE | 2023-11-03 09:51 | Discharge Summary ---
Date of Service November 03, 2023 Admission HPI Per Admitting Provider The patient is a 73-year-old female with h/o chronic back pain, narcotics dependence , Dilaudid pain pump for her chronic back pain, DM type 2, obesity, multiple pneumonias in the past , who presented to the emergency department for multiple complaints. The patient has been experiencing headache over the last 3 days. She states this began on Friday, after she had multiple episodes of vomiting . She also has been noticing some back pain and chest pain on the left side. She has generalized weakness and shortness of breath. 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 Diminutive intracranial portion of the left vertebral artery and basilar artery with severe stenosis. CTA chest extensive left lung pneumonia, she has elevated WBC, received IV Rocephin, reports chronic cough, denies h/o Asthma or COPD. She is hypoxic in ER 86 % on RA, does not use oxygen at home . Admission Exam Per Admitting Provider head atraumatic , normocephalic eyes scleara anicteric, pupils round and reactive to the light neck supple, no JVD Chest decreased breath sounds L> R , rhonchi Heart S1S2 regular , no murmurs abdomen soft, nt, obese, BS present extremities no clubbing, no cyanosis, no edema neuro AAO times 3 Principal Diagnosis Left upper lobe pneumonia, most likely community-acquired pneumonia Sepsis Acute hypoxic respiratory failure Demand ischemia Metabolic encephalopathy Peripheral vascular disease Discharge Exam General: Awake, conversant Heart: S1, S2/regular rate and rhythm, no murmur rubs or gallops Lungs: Crackles in the left upper lung zone improved. Normal effort Abdomen: Soft/nontender/nondistended. No hepatosplenomegaly Extremities: No clubbing/cyanosis. No edema Behavior: Appropriate, cooperative Discharge Data Allergies Allergy/AdvReac Type Severity Reaction Status Date / Time cefuroxime AdvReac Intermediate upset Verified 10/30/23 15:35 stomach prochlorperazine AdvReac Intermediate Confusion Verified 10/30/23 15:35 [From Compazine] Consultations 10/30/23 14:39 ED Decision to Admit Stat 10/30/23 17:07 Consult Neurology Routine Ordered Studies 10/30/23 11:17 CT angio head w con Stat CT angio neck with con Stat CT head/brain wo con Stat 10/30/23 12:52 CT angio chest PE protocol Stat Hospital Course (1) Pneumonia: left upper lung pneumonia due to community-acquired pneumonia versus possible aspiration, chronic narcotics use , recent episode of vomiting on Friday Initially treated with ceftriaxone and azithromycin, switch to p.o. Keflex and azithromycin. Patient improved without anaerobic coverage Clinically improved Lactic acidosis resolved Leukocytosis resolved Blood cultures negative Switch to p.o. Keflex and azithromycin (2) Sepsis: Secondary to pneumonia. Met criteria for sepsis Resolved with treatment of pneumonia (3) Acute respiratory failure with hypoxemia: due to pneumonia, ? asthma Antibiotics nebs oxygen suppl to keep Osat >92 % Not needing oxygen with exertion. (4) Elevated troponin I level: demand ischemia ? due to acute respiratory failure Echo unremarkable baby asa, switch to Plavix per neurology (5) Headache: patient with significant cerebrovascular disease Patient was seen in consultation by neurology for multiple arterial issues including right middle cerebral artery, left vertebral artery, basilar artery. Neurology recommended switching from aspirin to Plavix to prevent stroke. Order placed. Per neurology, no need for MRI currently. Follow-up with neurology outpatient (6) Implantable intrathecal infusion pump present: Dilaudid pump (7) Neurogenic claudication due to lumbar spinal stenosis: Dilaudid pump, no new neurological deficit (8) Diabetes: on Metformin, sulfonylurea, start insulin sliding scale (9) Metabolic encephalopathy: Per ED documentation, patient was confused Resolved Patient is back to her baseline. Most likely due to pneumonia and sepsis. Plan Discharge today Total Time Total Time Spent Total Time Spent (In Minutes): 35 Discharge Plan Discharge Items Patient Disposition: Home - Self-Care Reason For Visit: PNEUMONIA Discharge Diagnosis: Left upper lobe pneumonia, most likely community-acquired pneumonia Sepsis Acute hypoxic respiratory failure Demand ischemia Metabolic encephalopathy Peripheral vascular disease Activity: Resume your previous activity Non-emergency contact: Primary Care Provider Call non-emergency contact if: you have any medication questions and your symptoms worsen Follow-up/Referrals: Sunil Chairez MD [Physician] - 12/03/23 2:00 pm (APPT WITH [facility]) Tsering Casper MD [Primary Care Provider] - 11/12/23 1:05 pm (APPT WITH [facility]) Diet: Carb Consistent or DM2 and Heart Healthy Addtl Attending Provider Instructions: Advised to follow-up with PCP in 1 week Advised to follow-up with neurology in 1 month Pending Studies at Discharge: No Stand-Alone Forms: My [facility] Medications and DC Order Prescriptions: New azithromycin 250 mg Tablet 500 mg PO QAM 3 Days Qty: 6 0RF cephalexin 500 mg Capsule 500 mg PO BID 3 Days Qty: 6 0RF clopidogrel 75 mg Tablet 75 mg PO QAM 30 Days Qty: 30 0RF Continued amlodipine 5 mg tablet 5 mg PO QAM duloxetine [Cymbalta] 60 mg capsule,delayed release(DR/EC) 60 mg PO BID Qty: 180 0RF albuterol sulfate 90 mcg/actuation HFA aerosol inhaler 2 puffs INH Q4H PRN (Reason: shortness of breath or wheezing) Rx Instructions: Inhale 2 puffs every 4 hours as needed atorvastatin 40 mg tablet 40 mg PO QAM metformin 1,000 mg tablet 1,000 mg PO BID glipizide 2.5 mg tablet extended release 24hr 2.5 mg PO QAM pantoprazole 40 mg tablet,delayed release (DR/EC) 40 mg PO QAM gabapentin 300 mg capsule 900 mg PO TID Patient Comments: TAKES 3 TAB TID Metamucil (with sugar) 3.4 gram/7 gram Powder 2 tbsp PO QAM Rx Instructions: MIX WITH 8 OZ. FLUID triamcinolone acetonide 0.1 % cream 1 applic TOPICAL DAILY PRN (Reason: dry legs) acetaminophen 325 mg Tablet 650 mg PO Q4H PRN (Reason: pain) Qty: 30 0RF Rx Instructions: OTC albuterol sulfate 2.5 mg /3 mL (0.083 %) solution for nebulization 2.5 mg inhalation Q6H PRN (Reason: Shortness Of Breath) Qty: 180 0RF magnesium 250 mg tablet 250 mg PO HS Qty: 30 0RF Rx Instructions: [id number] multivitamin Tablet 1 tab PO QAM losartan 100 mg tablet 100 mg PO QAM guaifenesin [Mucinex] 600 mg tablet extended release 12hr 1,200 mg PO Q12 PRN (Reason: Congestion) Rx Instructions: [id number] Discharge Orders: Discharge Order (Routine); Ordered 11/03/23 Ordered By: Luis Zamora Admission Data Admit Date/Time: 10/30/23 16:31 Attending Provider: Luis Zamorait Provider: Salma Boo Primary Care Provider: Tsering Casper Other Providers: Salma Boo; Bharath Marsh; Sunil Chairez; Rose Pineda; Lachelle Harrington; Cailin Darling; Naveed Alejandre Other Interventions: Discharge Summary Assessment (RN) Last Done: 11/03/23 12:45 Coding Level of Care Code 09383 INP/OBS DISCH >30 MIN Diagnoses Pneumonia J18.9 Laterality: left Lung location: unspecified part of lung Pneumonia type: due to unspecified organism Sepsis A41.9 Acute respiratory failure with hypoxemia J96.01 Elevated troponin I level R79.89 Headache R51.9 Headache chronicity pattern: unspecified pattern Headache type: unspecified Intractability: not intractable Implantable intrathecal infusion pump present Z96.89 Neurogenic claudication due to lumbar spinal stenosis M48.062 Type 2 diabetes mellitus without complication, without long-term current use of insulin E11.9 Diabetes mellitus complication status: without complication Diabetes mellitus mcc insulin use: without community support specialist use Diabetes mellitus type: type 2 Metabolic encephalopathy G93.41
== END 2023-11-03 13:53 | disposition home or self-care (01) | DRG 871 ==
LOC: ED 11:06 → SUATTDRO 16:31 → EDINP 16:31 → 3W 19:58

== ENCOUNTER 2024-06-28 10:00 | Inpatient (IN) ==
[2024-06-28] MEDS ORDERED: VANCOMYCIN CONSULT ACTIVE PRN ×2 (10:55→16:30)
--- NOTE | 2024-06-28 11:00 | Emergency Department Note ---
Impression & Plan Cellulitis, Lactic acidosis, Acute leg pain, Diabetic foot ulcer ED Provider Note NAME: BRISEYDA PORTILLO AGE: 74 SEX: F : 1950 ARRIVES VIA: Walk-In INFORMANT: Patient ED PROVIDER(S): Ankur Ruiz DO CHIEF COMPLAINT: Left foot pain HPI: Patient is a 74-year-old female with a past medical history of CVA, diabetes who presents to the ER for left foot pain that has been present for the past 3 weeks. She notes she has been having redness and swelling and pain of the left foot. Her daughter saw her this morning and brought her in the PCP who sent her here. She has redness streaking up the leg. She admits to swelling. Denies any headache or change in vision. She does have nausea. No dysuria, urgency, or frequency. No other exacerbating or remitting factors. ADDITIONAL HISTORY OBTAINED: Per HPI Chronic Medical/Social Conditions Affecting Care: Per HPI PAST MEDICAL HISTORY:See Below PAST SURGICAL HISTORY:See Below FAMILY HISTORY:See Below SOCIAL HISTORY:See Below HOME MEDICATIONS:See Below ALLERGIES:See Below VITALS:See Below PHYSICAL EXAMINATION: GENERAL: Sitting up in bed, alert, well appearing, well nourished, no distress, non-toxic EYE EXAM: normal conjunctiva. OROPHARYNX: mucous membranes are moist NECK: supple, no nuchal rigidity, no adenopathy, non-tender LUNGS: Clear to auscultation. Normal chest wall mechanics HEART: no murmurs, S1 normal and S2 normal ABDOMEN: abdomen soft, non-tender, normo-active bowel sounds, no masses, no rebound or guarding. BACK: Back is symmetrical on inspection and there is no deformity, no midline tenderness, no CVA tenderness. SKIN: no rashes and no bruising UPPER EXTREMITIES: upper extremities are grossly normal. LOWER EXTREMITIES: Left lower extremity with erythema and a callus with a wound at the base of the first MTP. She has redness streaking up her leg. Foot is swollen warm and tender. DP 2 out of 4. Gross incision intact. NEURO EXAM: Normal sensorium, cranial nerves II-XII grossly intact, normal speech, no gross weakness of arms, no gross weakness of legs. MEDICAL DECISION MAKING: Patient is a 74-year-old female who presents to the ER for the above-stated complaint. IV was established and blood work was obtained. Labs show no significant leukocytosis or anemia. BMP was fairly unremarkable. Lactate was significantly elevated at 6. Mag was low at 1.3 LFTs, bilirubin, was unremarkable. Troponin was negative. Pro-Julien unremarkable. X-ray of the foot questions osteo. Do favor the cause of her symptoms of cellulitis. Patient was given IV antibiotics including IV Rocephin and vancomycin. She was updated at bedside. Then discussed the case with the hospitalist for further evaluation management treatment. He was ordered 2L NSS while in the ER. With his fluid goal for ideal body weight of 1.4 L. Lactic acid did trend down to 3. Please see the hospitalist note for further evaluation management treatment. Consults/Care Managements Discussions: Per [facility] Triage Nursing notes reviewed. Limited review of prior medical records performed Vital Signs: reviewed and remarkable for no significant abnormalities Differential diagnosis: Differential diagnosis includes etiologies such as sepsis, UTI, pneumonia, metabolic, electrolyte abnormalities, cardiac sources, intracerebral event, toxicologic, neurological, as well as others were entertained. ER treatment provided: See below Diagnostics interpreted by me include EKG and cardiac monitoring as listed below: -Cardiac Monitoring: An order was placed for continuous cardiac monitoring. The monitor shows a rate of 101 with sinus rhythm. -ECG: none -Laboratory studies:Interpreted by me as stated above in MDM and shown below. Imaging studies: Xrays: As interpreted by me: X-ray of the left foot per my pulm interpretation showed no obvious fracture CTs show: none Procedures:none Critical Care: None Past Med/Surg History Problem List (Updated 06/28/24 @ 13:52 by Ankur Ruiz DO) Diabetic foot ulcer (Acute) Acute leg pain (Acute) Cellulitis (Acute) HERIBERTO (obstructive sleep apnea) Insomnia Carotid stenosis Chronic anticoagulation Metabolic encephalopathy Basilar artery stenosis Acute encephalopathy Acute respiratory failure with hypoxemia Cerebrovascular disease (Acute) Elevated troponin I level (Acute) AMS (altered mental status) (Acute) Headache (Acute) Hypoxia (Acute) Pneumonia (Acute) Carpal tunnel syndrome on right Rotator cuff tear arthropathy of right shoulder SOB (shortness of breath) (Acute) Rhinovirus infection (Acute) Chest pain (Acute) Nausea vomiting and diarrhea Sepsis Hypomagnesemia (Acute) Nausea & vomiting (Acute) Acute neck pain (Acute) Diarrhea (Acute) Headache (Acute) Implantable intrathecal infusion pump present containing hydromorphone SCHMIDT (dyspnea on exertion) (Chronic) Diabetes (Acute) 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) Depressive disorder (Chronic) Intractable low back pain (Chronic) Generalized anxiety disorder (Chronic) Major depressive disorder (Chronic) 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 Panic disorder (Chronic) Encounter for pre-operative examination Bowel and bladder incontinence (Acute) History of fusion of lumbar spine (Chronic) Surgical wound, non healing (Acute) Weakness of lower extremity (Chronic) Hypoxia (Acute) Fracture of transverse process of thoracic vertebra (Acute) Fracture, rib (Acute) Fall (Acute) Restless leg syndrome Epidural hematoma Constipation Lumbar postlaminectomy syndrome (Chronic) Encounter for annual routine gynecological examination COVID-19 virus infection (Acute) Fall (Acute) Syncope (Acute) Hypoxemia (Acute) Back injury (Acute) TEA (acute kidney injury) Elevated CK Acute respiratory failure with hypoxia Pneumonia due to 2019 novel coronavirus Thoracic spine fracture Morbid obesity with BMI of 40.0-44.9, adult DVT prophylaxis Chest wall pain History of thoracic spinal fusion Ambulatory dysfunction Frequent falls Encounter for pre-operative examination Wheezing Lower extremity pain, left (Acute) Left lumbar radiculopathy (Acute) Lumbosacral radiculopathy Shoulder pain, right Right shoulder pain Acute hypotension (Acute) Acute dehydration (Acute) Hypomagnesemia (Acute) Diarrhea (Acute) Lactic acidosis (Acute) Constipation Hypoxia Low back pain Acute kidney injury Arthritis of shoulder region, right Adhesive capsulitis of right shoulder Rotator cuff arthropathy of right shoulder Chronic laryngitis Laryngopharyngeal reflux (LPR) Right hip pain Claudication of lower extremity Peripheral edema Intermittent (no issues at PAT appt 08/28/22) Therapeutic opioid-induced constipation (OIC) Chronic SI joint pain Neurogenic claudication due to lumbar spinal stenosis Lumbar spinal stenosis (Chronic) Lumbar spondylosis (Chronic) Intractable neuropathic pain of lower extremity (Chronic) Degenerative disc disease (Chronic) Sleep apnea (Chronic) NO DEVICE USED Hypertension (Chronic) Diabetes mellitus, type 2 (Chronic) Glucose only fair controlled Diabetic peripheral neuropathy associated with type 2 diabetes mellitus (Chronic) Fatty liver (Chronic) Hyperlipidemia (Chronic) Medical History Hx of fall 04/2020>FELL AND HOSPITALIZED FOR COVID/HYPOXIA AND "BROKE MY BACK>SENT TO [facility]. WAS IN A DRUG INDUCED COMA FOR WEEKS/HAD BACK SURGERY". History of COVID-19 04/2020 (HOSPITALIZED IN [facility])>RESOLVED Hx of gout GERD (gastroesophageal reflux disease) Well controlled and stable Restless leg syndrome History of kidney stones Surgical History History of back surgery 4 TOTAL BACK SURGERIES Most recent - T8-L1 Jun 2020 L2-L5 (prior) (04/2020) History of esophagogastroduodenoscopy (EGD) History of colonoscopy History of tooth extraction H/O varicose vein ligation and stripping Saphenous vein History of open reduction and internal fixation (ORIF) procedure RT ANKLE History of section X 3 History of herniorrhaphy 02/21/15 - Repair of incarcerated incisional hernia with Surgimesh 10cm in diameter resection of incarcerated omentum by Dr Knutson History of appendectomy 10/19/12 - laparoscopic by Dr Herrera Family History Mother , age 77 of heart issues Osteoporosis Heart disease Cancer Hypertension Brother Diabetes Family history of diabetes mellitus Daughter Cervical cancer Father , Patient age 91 with Parkinson's disease Parkinsons Other No family history of adverse response to anesthesia Denies family history of Ovarian cancer Breast cancer Colorectal cancer Stroke Asthma Social History Smoking Status: Never smoker Second Hand Exposure: No; Do You Dip or Chew Tobacco: No; Hx Alcohol Use: No Hx Substance Use: No Preferred Language: Yoruba Communication Ability: Effective Visual Impairment: No Limitations Hearing Ability: Normal Sap Mobility Architect Required: No Beliefs That Will Affect Care: Judaism Judaism Beliefs: Religious marital status: Current Living Situation: Spouse current occupational status: retired 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 Feels Safe at Home: Yes Dental Care, Regularly: Yes Physical Activity Frequency: Does not Exercise Assistive Devices: Cane, Nebulizer and Walker Allergies Allergies Allergy/AdvReac Type Severity Reaction Status Date / Time cefuroxime AdvReac Intermediate upset Verified 06/09/24 15:28 stomach prochlorperazine AdvReac Intermediate Confusion Verified 06/09/24 15:28 [From Compazine] Home Meds Home Medications Medication Instructions Recorded Confirmed amlodipine 5 mg tablet 5 mg PO QAM 02/09/18 06/09/24 albuterol sulfate 90 mcg/actuation 2 puffs inhalation Q4H PRN 08/08/19 06/09/24 aerosol inhaler shortness of breath or wheezing atorvastatin 40 mg tablet 40 mg PO QAM 06/05/20 06/09/24 glipizide 2.5 mg tablet, extended 2.5 mg PO QAM 06/05/20 06/09/24 release 24 hr metformin 1,000 mg tablet 1,000 mg PO BID 06/05/20 06/09/24 pantoprazole 40 mg tablet,delayed 40 mg PO QAM 06/05/20 06/09/24 release gabapentin 300 mg capsule 900 mg PO TID 08/07/20 06/09/24 multivitamin 1 tab PO QAM 08/28/22 06/09/24 psyllium husk (with sugar) 3.4 2 tbsp PO QAM 07/01/23 06/09/24 gram/7 gram oral powder (Metamucil (with sugar)) triamcinolone acetonide 0.1 % 1 applic topical DAILY PRN dry legs 07/01/23 06/09/24 topical cream guaifenesin 600 mg tablet, 1,200 mg PO Q12 PRN Congestion 10/30/23 06/09/24 extended release 12 hr (Mucinex) losartan 100 mg tablet 100 mg PO QAM 10/30/23 06/09/24 clopidogrel 75 mg tablet (Plavix) 75 mg PO DAILY 01/13/24 06/09/24 duloxetine 60 mg capsule,delayed 60 mg PO DAILY 03/25/24 06/09/24 release (Cymbalta) famotidine 40 mg tablet 40 mg PO DAILY 05/06/24 06/09/24 hydrochlorothiazide 25 mg tablet 25 mg PO DAILY 05/06/24 06/09/24 Previous Rx's Medication Instructions Recorded acetaminophen 325 mg tablet 650 mg (2 x 325 mg) PO Q4H PRN 07/04/23 pain #30 tabs albuterol sulfate 2.5 mg/3 mL 2.5 mg (3 mL) inhalation Q6H PRN 07/04/23 (0.083 %) solution for nebulization Shortness Of Breath #180 mL magnesium 250 mg tablet 250 mg PO HS #30 tabs 07/04/23 methylprednisolone 4 mg tablets in 4 mg PO .COMPLEX #21 ea 05/06/24 a dose pack Results & Data (ED) Vital Signs Vital Signs - 24 hr 06/28/24 10:01 06/28/24 11:07 06/28/24 11:07 Temperature 36.6 C Temperature Source Temporal Artery Scan Pulse Rate 92 H 106 H Pulse Rate [Apical] 106 H Pulse Rate from SpO2 Sensor Pulse Rhythm Regular Pulse Rhythm [Apical] Regular Pulse Strength [Apical] Normal Respiratory Rate 18 16 16 Respiratory Effort / Characteristics Non-Labored Spontaneous Respiratory Depth Normal Respiratory Pattern Regular Blood Pressure 174/150 H Blood Pressure [Left Arm] 115/89 Blood Pressure Mean 158 Blood Pressure Mean [Left Arm] 97 Blood Pressure Position [Left Arm] Semi-fowlers Pulse Oximetry 99 93 93 Oxygen Delivery Method Room Air Room Air Oxygen Flow Rate Sepsis Recent Fever Within 48 Hours No Sepsis New/Unexplained Change in Mental Status N/A Sepsis Action Taken by Nursing No Action Required 06/28/24 11:21 06/28/24 11:36 06/28/24 12:00 Temperature Temperature Source Pulse Rate 107 H 106 H 101 H Pulse Rate [Apical] Pulse Rate from SpO2 Sensor 106 H 101 H Pulse Rhythm Pulse Rhythm [Apical] Pulse Strength [Apical] Respiratory Rate 20 25 H Respiratory Effort / Characteristics Respiratory Depth Respiratory Pattern Blood Pressure 132/74 123/73 Blood Pressure [Left Arm] Blood Pressure Mean 93 89 Blood Pressure Mean [Left Arm] Blood Pressure Position [Left Arm] Pulse Oximetry 92 97 Oxygen Delivery Method Room Air Nasal Cannula Oxygen Flow Rate 3 Sepsis Recent Fever Within 48 Hours Sepsis New/Unexplained Change in Mental Status Sepsis Action Taken by Nursing 06/28/24 12:24 06/28/24 12:33 06/28/24 13:00 Temperature Temperature Source Pulse Rate 105 H 103 H Pulse Rate [Apical] Pulse Rate from SpO2 Sensor 101 H 101 H 103 H Pulse Rhythm Pulse Rhythm [Apical] Pulse Strength [Apical] Respiratory Rate 24 26 H Respiratory Effort / Characteristics Respiratory Depth Respiratory Pattern Blood Pressure 131/70 133/74 Blood Pressure [Left Arm] Blood Pressure Mean 90 93 Blood Pressure Mean [Left Arm] Blood Pressure Position [Left Arm] Pulse Oximetry 88 L 97 100 Oxygen Delivery Method Room Air Nasal Cannula Nasal Cannula Oxygen Flow Rate 3 3 Sepsis Recent Fever Within 48 Hours Sepsis New/Unexplained Change in Mental Status Sepsis Action Taken by Nursing Laboratory Data 06/28/24 11:00 06/28/24 11:00 Lab Results 06/28/24 06/28/24 06/28/24 Range/Units 11:00 11:21 12:55 WBC 7.73 (4.8-10.8) K/ul RBC 4.25 (4.20-5.40) M/uL Hgb 12.6 (12.0-16.0) g/dl Hct 38.5 (37.0-47.0) % MCV 90.6 (80.0-100.0) fL MCH 29.6 (25.0-34.0) pg MCHC 32.7 (32.0-36.0) g/dL RDW Std Deviation 47.8 H (36.4-46.3) fL RDW Coeff of Manas 14.6 H (11.5-14.5) % Plt Count 272 (130-400) K/uL MPV 10.2 (9.4-12.4) fL Immature Gran % (Auto) 0.3 % Neut % (Auto) 85.5 % Lymph % (Auto) 10.6 % Atlantic % (Auto) 2.7 % Eos % (Auto) 0.6 % Baso % (Auto) 0.3 % Neut # (Auto) 6.61 H (1.40-6.50) K/uL Lymph # (Auto) 0.82 L (1.20-3.40) K/uL Atlantic # (Auto) 0.21 (0.11-0.59) K/uL Eos # (Auto) 0.05 (0.00-0.50) K/uL Baso # (Auto) 0.02 (0.00-0.20) K/uL Immature Gran # (Auto) 0.02 (0.01-0.20) K/uL Sodium 137 (136-145) mmol/L Potassium 3.9 (3.5-5.1) mmol/L Chloride 96 L (98-107) mmol/L Carbon Dioxide 30 (21-32) mmol/L Anion Gap 11 (3-11) BUN 16 (6-23) mg/dl Creatinine 0.76 (0.6-1.2) mg/dl Est Cr Clr Drug Dosing Not Reportable eGFR 83.20 BUN/Creatinine Ratio 21.1 H (10-20) Glucose 147 H (70-99(Fasting)) mg/dl Lactate 5.2 H* 3.2 H* (0.4-2.0) mmol/L Calcium 9.2 (8.6-10.3) mg/dl Magnesium 1.3 L (1.7-2.4) mg/dl Total Bilirubin 0.7 (0.2-1.0) mg/dl Direct Bilirubin 0.1 (0-0.2) mg/dl AST 20 (13-39) U/L ALT 15 (7-52) U/L Alkaline Phosphatase 81 (34-104) U/L Troponin I High Sens 6.3 (0-14) pg/ml Total Protein 6.7 (6.0-8.3) gm/dl Albumin 3.8 (3.4-5.0) gm/dl Procalcitonin Cancelled 0.05 Administered Medications Discontinued Medications Ceftriaxone Sodium (Rocephin) 2,000 mg in 50 mls @ 100 mls/hr IV NOW STA Stop: 06/28/24 11:24 Last Infusion: 06/28/24 12:26 Dose: Infused Documented By: Admin: 06/28/24 11:32 Dose: 100 mls/hr Documented By: Vancomycin HCl 1,750 mg/ (Sodium Chloride) 535 mls @ 200 mls/hr IV NOW ONE Stop: 06/28/24 13:35 Last Admin: 06/28/24 12:20 Dose: 200 mls/hr Documented By: Sodium Chloride (Nss) 1,000 mls @ 999 mls/hr IV .Q1H1M ONE Stop: 06/28/24 11:56 Last Admin: 06/28/24 11:31 Dose: 999 mls/hr Documented By: Morphine Sulfate (Morphine Sulfate 4 Mg/Ml 1 Ml Carp\\Vial) 4 mg IV NOW STA Stop: 06/28/24 10:56 Last Admin: 06/28/24 11:31 Dose: 4 mg Documented By: Ondansetron HCl (Ondansetron Inj 2 Mg/Ml 2 Ml Vial) 4 mg IV NOW STA Stop: 06/28/24 12:01 Last Admin: 06/28/24 12:20 Dose: 4 mg Documented By: Imaging Data Radiologist's Impression: Foot X-Ray 06/28/24 10:38 XR foot LT min 3V routine CLINICAL HISTORY: l foot ulcer COMPARISON: None FINDINGS: No fracture or dislocation. There is soft tissue swelling medial to the first MTP joint, possible soft tissue ulcer versus bunion. On the oblique view there is a small area of erosive change at the distal dorsal medial aspect of the first metatarsal. No other osseous destructive change seen. IMPRESSION: 1. Small chronic erosion versus early osteomyelitis distally at the first metatarsal. Suggest clinical correlation with location of the soft tissue ulcer. 2. No other evidence of osteomyelitis seen. ACT 112: Negative or not required by law. Electronically signed by: Tarun Gutiérrez M.D. 06/28/2024 12:26 PM Discharge Plan Visit Data Chief Complaint: Infection, Wound Stated Complaint: LT FOOT INFECTION/WOUND ON BOTTOM INSIDE ED Provider: Ankur Ruiz Discharge Problem: Cellulitis, Lactic acidosis, Acute leg pain, Diabetic foot ulcer Forms Stand Alone Forms: [facility] Prescriptions Prescriptions: No Action amlodipine 5 mg tablet 5 mg PO QAM duloxetine [Cymbalta] 60 mg capsule,delayed release(DR/EC) 60 mg PO DAILY Rx Instructions: taking two every 3 days famotidine 40 mg tablet 40 mg PO DAILY hydrochlorothiazide 25 mg tablet 25 mg PO DAILY methylprednisolone 4 mg tablets,dose pack 4 mg PO .COMPLEX Qty: 21 0RF Rx Instructions: 4 mg PO Use as directed; albuterol sulfate 90 mcg/actuation HFA aerosol inhaler 2 puffs INH Q4H PRN (Reason: shortness of breath or wheezing) Rx Instructions: Inhale 2 puffs every 4 hours as needed clopidogrel [Plavix] 75 mg tablet 75 mg PO DAILY atorvastatin 40 mg tablet 40 mg PO QAM metformin 1,000 mg tablet 1,000 mg PO BID glipizide 2.5 mg tablet extended release 24hr 2.5 mg PO QAM pantoprazole 40 mg tablet,delayed release (DR/EC) 40 mg PO QAM gabapentin 300 mg capsule 900 mg PO TID Patient Comments: TAKES 3 TAB TID Metamucil (with sugar) 3.4 gram/7 gram Powder 2 tbsp PO QAM Rx Instructions: MIX WITH 8 OZ. FLUID triamcinolone acetonide 0.1 % cream 1 applic TOPICAL DAILY PRN (Reason: dry legs) acetaminophen 325 mg Tablet 650 mg PO Q4H PRN (Reason: pain) Qty: 30 0RF Rx Instructions: OTC albuterol sulfate 2.5 mg /3 mL (0.083 %) solution for nebulization 2.5 mg inhalation Q6H PRN (Reason: Shortness Of Breath) Qty: 180 0RF magnesium 250 mg tablet 250 mg PO HS Qty: 30 0RF Rx Instructions: [id number] multivitamin Tablet 1 tab PO QAM losartan 100 mg tablet 100 mg PO QAM guaifenesin [Mucinex] 600 mg tablet extended release 12hr 1,200 mg PO Q12 PRN (Reason: Congestion) Rx Instructions: [id number] Referrals Referrals: Tsering Casper MD [Primary Care Provider] - Discharge Problem: Cellulitis Qualifiers: Site of cellulitis: unspecified site Qualified Code(s): L03.90 - Cellulitis, unspecified Acute leg pain Qualifiers: Laterality: unspecified laterality Qualified Code(s): M79.606 - Pain in leg, unspecified Diabetic foot ulcer Qualifiers: Diabetic foot ulcer location: unspecified part of foot Diabetes mellitus type: other specified (including MUKESH) Laterality: left Non-pressure ulcer stage: u nspecified non-pressure ulcer stage Qualified Code(s): E13.621 - Other specified diabetes mellitus with foot ulcer
[2024-06-28] MEDS: MoRPHine SULFATE 4 MG/ML 1 ML CARP\\VIAL IV STA (11:31)
[2024-06-28] MEDS: SODIUM CHLORIDE 0.9% 1,000 ML IV ONE ×2 (11:31→14:54)
[2024-06-28] MEDS: cefTRIAXone SODIUM 2,000 MG/50 ML BAG IV STA (11:32)
[2024-06-28 11:37] LABS: Alanine Aminotransferase 15 U/L (7-52); Albumin Level 3.8 gm/dl (3.4-5.0); Alkaline Phosphatase 81 U/L (34-104); Anion Gap 11 (3-11); Aspartate Aminotransferase 20 U/L (13-39); BUN Creatinine Ratio 21.1 (10-20); Bilirubin Direct 0.1 mg/dl (0-0.2); Bilirubin,Total 0.7 mg/dl (0.2-1.0); Blood Urea Nitrogen 16 mg/dl (6-23); Calcium 9.2 mg/dl (8.6-10.3); Carbon Dioxide 30 mmol/L (21-32); Chloride 96 mmol/L (98-107); Glucose 147 mg/dl (70-99(Fasting)); Magnesium 1.3 mg/dl (1.7-2.4); Potassium 3.9 mmol/L (3.5-5.1); Sodium 137 mmol/L (136-145); Total Protein 6.7 gm/dl (6.0-8.3)
[2024-06-28 11:44] LABS: Troponin I High Sensitivity 6.3 pg/ml (0-14)
--- NOTE | 2024-06-28 11:50 | Electrocardiogram Report ---
Test Reason : Blood Pressure : */* mmHG Vent. Rate : 106 BPM Atrial Rate : 106 BPM P-R Int : 154 ms QRS Dur : 130 ms QT Int : 358 ms P-R-T Axes : 22 -63 14 degrees QTcB Int : 475 ms Sinus tachycardia Right bundle branch block Left anterior fascicular block Bifascicular block Possible Anterolateral infarct (cited on or before 30-Oct-2023) Abnormal ECG When compared with ECG of 30-Oct-2023 11:21, ST no longer depressed in Inferior leads T wave inversion less evident in Inferior leads T wave inversion no longer evident in Anterolateral leads Confirmed by Augustine Soriano ([id number]) on 06/28/2024 11:50:27 AM Referred By: Confirmed By: Augustine Soriano
[2024-06-28] MEDS: VANCOMYCIN HCL 1,750 MG in SODIUM CHLORIDE 0.9% 500 ML IV ONE (12:20)
[2024-06-28] MEDS: ONDANSETRON INJ 2 MG/ML 2 ML VIAL IV STA (12:20)
[2024-06-28 12:21] LABS: Hematocrit (blood only) 38.5 % (37.0-47.0); Hemoglobin 12.6 g/dl (12.0-16.0); Mean Corpuscular Hemoglobin 29.6 pg (25.0-34.0); Mean Corpuscular Hgb Conc 32.7 g/dL (32.0-36.0); Mean Corpuscular Volume 90.6 fL (80.0-100.0); Mean Platelet Volume 10.2 fL (9.4-12.4); Platelet Count 272 K/uL (130-400); RDW Coefficient of Variation 14.6 % (11.5-14.5); RDW Standard Deviation 47.8 fL (36.4-46.3); Red Blood Count 4.25 M/uL (4.20-5.40); White Blood Count 7.73 K/ul (4.8-10.8)
--- NOTE | 2024-06-28 12:28 | XRay Report ---
XR foot LT min 3V routine CLINICAL HISTORY: l foot ulcer COMPARISON: None FINDINGS: No fracture or dislocation. There is soft tissue swelling medial to the first MTP joint, p ossible soft tissue ulcer versus bunion. On the oblique view there is a small area of erosive change at the distal dorsal medial aspect of the first metatarsal. No other osseous destructive change seen. IMPRESSION: 1. Small chronic erosion versus early osteomyelitis distally at the first metatarsal. Suggest clinica l correlation with location of the soft tissue ulcer. 2. No other evidence of osteomyelitis seen. ACT 112: Negative or not required by law. Electronically signed by: Tarun Gutiérrez M.D. 06/28/2024 12:26 PM
[2024-06-28 12:40] LABS: Basophils # (auto) 0.02 K/uL (0.00-0.20); Basophils % (auto) 0.3 %; Eosinophils # (auto) 0.05 K/uL (0.00-0.50); Eosinophils % (auto) 0.6 %; Immature Granulocytes # (auto) 0.02 K/uL (0.01-0.20); Immature Granulocytes % (auto) 0.3 %; Lymphocytes # (auto) 0.82 K/uL (1.20-3.40); Lymphocytes % (auto) 10.6 %; Monocytes # (auto) 0.21 K/uL (0.11-0.59); Monocytes % (auto) 2.7 %; Neutrophils # (auto) 6.61 K/uL (1.40-6.50); Neutrophils % (auto) 85.5 %
--- NOTE | 2024-06-28 12:57 | History & Physical Report ---
Date of Service June 28, 2024 Assessment & Plan (1) Left leg cellulitis: (2) Acute leg pain: (3) Hypomagnesemia: (4) Diabetes mellitus, type 2: Plan Rosa is a 74-year-old female with PMH of T2DM, HLD, sleep apnea, DVT, depression, and anxiety. She presented on 06/28 for worsening left and right foot infections x 3 weeks. Pain is worse in her left foot, and she has started having sharp/stabbing pain going up her left leg x 1 week. The pain is so severe, that she is unable to bear weight on them. #Left lower extremity cellulitis/osteomyelitis Patient denies history of MRSA infections or purulent drainage However, foot x-ray on arrival revealed small chronic erosions which could indicate early signs of osteomyelitis Accounting Administrative Assistant consult appreciated Will be seen on 06/29 N.p.o. status at midnight on 06/29 pending podiatry eval Arterial Doppler of the LLE ordered, pending Vancomycin 15 mg/kg IV q24h Cefepime 2000 mg IV q8h Acetaminophen as needed for pain/fever Morphine as needed for breakthrough pain #Hypomagnesemia Magnesium 1.3 on arrival Magnesium sulfate 1 g IV x 2 Check a.m. mag Continue repletion #T2DM Last A1c at 7.3% on 07/01/2023 Hold metformin, glimepiride Lantus 7 u BID while inpatient SSI; with target BSG range 110-140mg/dL, CF 50, carb ratio 15 T2DM diet BSG ACHS Adjust regimen as needed AM A1c #Sinus tachycardia Patient is mildly tachycardic in the ED Troponin WNL Clinically, she denies chest pain or chest palpitations Continuous telemetry monitoring for now #Elevated lactate While her lactate is elevated at 5.2-> 3.2 on arrival, but this may be secondary to metformin use No leukocytosis; procalcitonin WNL; afebrile Do not feel patient is septic at this time IVF resuscitation and will hold HCTZ temporarily Disposition: Admit to [facility] with telemetry Full code T2DM diet VTE PPx: Lovenox 40 mg SQ q24h History of Present Illness Chief Complaint: Left foot infection, pain Primary Care Provider: Tsering Casper MD Rosa is a 74-year-old female with PMH of T2DM, HLD, sleep apnea, DVT, depression, and anxiety. She presented on 06/28 for worsening bilateral foot pain, and left foot infectionsx 3 weeks. Pain is worse in her left foot, and she developed sharp/stabbing pain going up her left leg over the past week. The pain is so severe, that she is unable to bear weight on them. She characterized the pain as constant, and rates the pain 8/10 after receiving pain medicine in the ED; 10/10 at worst. Radiates up to the "top" of her left leg. She denies any purulent drainage. No prior history of MRSA infections to her knowledge. She does have a history of a DVT 43 years ago, but is not currently on anticoagulation. Patient does take Plavix daily for history of TIAs. Patient took her regular morning medicines today; no recent change in medicine. She manages her own medicine at home. She is been taking Tylenol at home for the pain, but reports this has not been helping. Patient lives at home with her . She does use a cane as needed to ambulate. Denies any recent falls or injuries to her legs. She denies any hardware in her left leg (no knee or hip replacements), but does report history of hardware in her right ankle. Despite having HERIBERTO, patient denies CPAP at night, or supplemental oxygen at baseline. Patient denies smoking, tobacco use, recent alcohol use. Patient is tachycardic at 105 bpm at time of admission; SpO2 97% on 3L NC. ED course: Vancomycin 1750 mg IV Rocephin 2000 mg IV NSS 1000 mL IV Zofran 4 mg IV Morphine 4 mg IV ROS: Patient endorses bilateral foot pain, stabbing pain going up her left leg, lightheadedness with movements, headache, cold intolerance, nausea, and chronic neuropathy in the legs. Patient denies fever, chills, night-sweats, falls, syncope, chest pain, SOB, cough, pleuritic CP, abdominal pain, vomiting, diarrhea, burning with urination, or blood in the urine/stool. Allergies Allergy/AdvReac Type Severity Reaction Status Date / Time cefuroxime AdvReac Intermediate upset Verified 06/28/24 13:59 stomach prochlorperazine AdvReac Intermediate Confusion Verified 06/28/24 13:59 [From Compazine] Home Medications Medication Instructions Recorded Confirmed Type albuterol sulfate 90 mcg/actuation 2 puffs inhalation Q4H PRN 08/08/19 06/28/24 History aerosol inhaler shortness of breath or wheezing glipizide 2.5 mg tablet, extended 2.5 mg PO BID 06/05/20 06/28/24 History release 24 hr metformin 1,000 mg tablet 1,000 mg PO BID 06/05/20 06/28/24 History pantoprazole 40 mg tablet,delayed 40 mg PO QAM 06/05/20 06/28/24 History release gabapentin 300 mg capsule 900 mg PO TID 08/07/20 06/28/24 History multivitamin 1 tab PO QAM 08/28/22 06/28/24 History psyllium husk (with sugar) 3.4 2 tbsp PO QAM 07/01/23 06/28/24 History gram/7 gram oral powder (Metamucil (with sugar)) triamcinolone acetonide 0.1 % 1 applic topical DAILY PRN dry legs 07/01/23 06/28/24 History topical cream acetaminophen 325 mg tablet 650 mg (2 x 325 mg) PO Q4H PRN 07/04/23 06/28/24 Rx pain #30 tabs albuterol sulfate 2.5 mg/3 mL 2.5 mg (3 mL) inhalation Q6H PRN 07/04/23 06/28/24 Rx (0.083 %) solution for nebulization Shortness Of Breath #180 mL magnesium 250 mg tablet 250 mg PO HS #30 tabs 07/04/23 06/28/24 Rx guaifenesin 600 mg tablet, 1,200 mg PO Q12 PRN Congestion 10/30/23 06/28/24 History extended release 12 hr (Mucinex) duloxetine 60 mg capsule,delayed 60 mg PO DAILY 03/25/24 06/28/24 History release (Cymbalta) famotidine 40 mg tablet 40 mg PO DAILY 05/06/24 06/28/24 History hydrochlorothiazide 25 mg tablet 25 mg PO DAILY 05/06/24 06/28/24 History lubiprostone 24 mcg capsule 24 mcg PO BID 06/28/24 06/28/24 History (Amitiza) pramipexole 0.25 mg tablet 0.25 mg PO TID 06/28/24 06/28/24 History urea 10 % topical cream 1 applic topical BID PRN Legs/Feet 06/28/24 06/28/24 History dryness amoxicillin 875 mg-potassium 1 tab PO BID #20 tabs 07/02/24 Rx clavulanate 125 mg tablet celecoxib 100 mg capsule (Celebrex) 100 mg PO BID #60 caps 07/02/24 Rx polyethylene glycol 3350 17 gram 17 g PO DAILY #30 ea 07/02/24 Rx oral powder packet (Miralax) sennosides 8.6 mg-docusate sodium 1 tab PO QAM #30 tabs 07/02/24 Rx 50 mg tablet (Senokot-S) Past Med/Surg History Problem List Chronic ulcer of left foot with fat layer exposed Left leg cellulitis Diabetic foot ulcer (Acute) Acute leg pain (Acute) Cellulitis (Acute) HERIBERTO (obstructive sleep apnea) Insomnia Carotid stenosis Chronic anticoagulation Metabolic encephalopathy Basilar artery stenosis Acute encephalopathy Acute respiratory failure with hypoxemia Cerebrovascular disease (Acute) Elevated troponin I level (Acute) AMS (altered mental status) (Acute) Headache (Acute) Hypoxia (Acute) Pneumonia (Acute) Carpal tunnel syndrome on right Rotator cuff tear arthropathy of right shoulder SOB (shortness of breath) (Acute) Rhinovirus infection (Acute) Chest pain (Acute) Nausea vomiting and diarrhea Sepsis Hypomagnesemia (Acute) Nausea & vomiting (Acute) Acute neck pain (Acute) Diarrhea (Acute) Headache (Acute) Implantable intrathecal infusion pump present containing hydromorphone SCHMIDT (dyspnea on exertion) (Chronic) Diabetes (Acute) 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) Depressive disorder (Chronic) Intractable low back pain (Chronic) Generalized anxiety disorder (Chronic) Major depressive disorder (Chronic) 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 Panic disorder (Chronic) Encounter for pre-operative examination Bowel and bladder incontinence (Acute) History of fusion of lumbar spine (Chronic) Surgical wound, non healing (Acute) Weakness of lower extremity (Chronic) Hypoxia (Acute) Fracture of transverse process of thoracic vertebra (Acute) Fracture, rib (Acute) Fall (Acute) Restless leg syndrome Epidural hematoma Constipation Lumbar postlaminectomy syndrome (Chronic) Encounter for annual routine gynecological examination COVID-19 virus infection (Acute) Fall (Acute) Syncope (Acute) Hypoxemia (Acute) Back injury (Acute) TEA (acute kidney injury) Elevated CK Acute respiratory failure with hypoxia Pneumonia due to 2019 novel coronavirus Thoracic spine fracture Morbid obesity with BMI of 40.0-44.9, adult DVT prophylaxis Chest wall pain History of thoracic spinal fusion Ambulatory dysfunction Frequent falls Encounter for pre-operative examination Wheezing Lower extremity pain, left (Acute) Left lumbar radiculopathy (Acute) Lumbosacral radiculopathy Shoulder pain, right Right shoulder pain Acute hypotension (Acute) Acute dehydration (Acute) Hypomagnesemia (Acute) Diarrhea (Acute) Lactic acidosis (Acute) Constipation Hypoxia Low back pain Acute kidney injury Arthritis of shoulder region, right Adhesive capsulitis of right shoulder Rotator cuff arthropathy of right shoulder Chronic laryngitis Laryngopharyngeal reflux (LPR) Right hip pain Claudication of lower extremity Peripheral edema Intermittent (no issues at PAT appt 08/28/22) Therapeutic opioid-induced constipation (OIC) Chronic SI joint pain Neurogenic claudication due to lumbar spinal stenosis Lumbar spinal stenosis (Chronic) Lumbar spondylosis (Chronic) Intractable neuropathic pain of lower extremity (Chronic) Degenerative disc disease (Chronic) Sleep apnea (Chronic) NO DEVICE USED Hypertension (Chronic) Diabetes mellitus, type 2 (Chronic) Glucose only fair controlled Diabetic peripheral neuropathy associated with type 2 diabetes mellitus (Chronic) Fatty liver (Chronic) Hyperlipidemia (Chronic) Medical History Hx of fall 04/2020>FELL AND HOSPITALIZED FOR COVID/HYPOXIA AND "BROKE MY BACK>SENT TO [facility]. WAS IN A DRUG INDUCED COMA FOR WEEKS/HAD BACK SURGERY". History of COVID-19 04/2020 (HOSPITALIZED IN [facility])>RESOLVED Hx of gout GERD (gastroesophageal reflux disease) Well controlled and stable Restless leg syndrome History of kidney stones Surgical History History of back surgery 4 TOTAL BACK SURGERIES Most recent - T8-L1 Jun 2020 L2-L5 (prior) (04/2020) History of esophagogastroduodenoscopy (EGD) History of colonoscopy History of tooth extraction H/O varicose vein ligation and stripping Saphenous vein History of open reduction and internal fixation (ORIF) procedure RT ANKLE History of section X 3 History of herniorrhaphy 02/21/15 - Repair of incarcerated incisional hernia with Surgimesh 10cm in diameter resection of incarcerated omentum by Dr Knutson History of appendectomy 10/19/12 - laparoscopic by Dr Herrera Family History Mother , age 77 of heart issues Osteoporosis Heart disease Cancer Hypertension Brother Diabetes Family history of diabetes mellitus Daughter Cervical cancer Father , Patient age 91 with Parkinson's disease Parkinsons Other No family history of adverse response to anesthesia Denies family history of Ovarian cancer Breast cancer Colorectal cancer Stroke Asthma Social History Smoking Status: Never smoker Second Hand Exposure: No; Do You Dip or Chew Tobacco: No; Hx Alcohol Use: No Hx Substance Use: No Preferred Language: Citizen Of [place] Communication Ability: Effective Visual Impairment: No Limitations Hearing Ability: Normal Network Services Project Manager Required: No Beliefs That Will Affect Care: Shinto Shinto Beliefs: Protestant marital status: Current Living Situation: Spouse current occupational status: retired 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 Feels Safe at Home: Yes Dental Care, Regularly: Yes Physical Activity Frequency: Does not Exercise Assistive Devices: Cane and Walker Review of Systems 2 Review of Systems: See HPI above Physical Exam 2 Physical Exam: General: no acute distress; daughter at bedside; non-toxic appearing; frail appearing; cooperative; SpO2 100% on 3L NC HEENT: normocephalic, atraumatic; no scleral icterus; PERRLA; vision and hearing grossly intact Neck: supple; no lymphadenopathy; trachea midline Skin: warm, dry without signs of tenting; no cyanosis; no rashes, bruising, lesions, or erythema noted CV: chest wall NTP; RR, mildly tachycardic around 103 bpm; S1/S2 normal; no murmurs/rubs/gallops; pulses intact and symmetric at radial pulse site Lungs: no acute respiratory distress; symmetrical chest wall expansion; clear breath sounds across all lung villanueva w/o adventitious sounds; no wheezing ABD: Soft, NTP; BS present; no rebound/guarding; no distention MSK: no tics or fasciculations LLE: Hot to touch; TTP; erythema and mild swelling extending up to the mid maldonado (see photo below); no purulent drainage or open wounds appreciated; ? DP pulse slightly weaker in the left foot when compared to the right Neuro: A&Ox3; normal mood and affect; fluent speech; no focal deficits; patient reports sensation is intact and symmetric in lower extremities bilaterally assessed via light touch Results & Data Results & Data Vital Signs (Past 12 Hours) Vital Signs Temp Pulse Pulse Resp BP BP Pulse Ox 06/28/24 12:33 105 H 24 131/70 97 06/28/24 12:24 88 L 06/28/24 12:00 101 H 25 H 123/73 97 06/28/24 11:36 106 H 20 132/74 92 06/28/24 11:21 107 H 06/28/24 11:07 106 H 16 115/89 93 06/28/24 11:07 106 H 16 93 06/28/24 10:01 36.6 C 92 H 18 174/150 H 99 O2 Del Method O2 Flow Rate 06/28/24 12:33 Nasal Cannula 3 06/28/24 12:24 Room Air 06/28/24 12:00 Nasal Cannula 3 06/28/24 11:36 Room Air 06/28/24 11:21 06/28/24 11:07 Room Air 06/28/24 11:07 Room Air 06/28/24 10:01 Laboratory Results Abnormal lab results 06/28/24 Range/Units 11:00 RDW Std Deviation 47.8 H (36.4-46.3) fL RDW Coeff of Manas 14.6 H (11.5-14.5) % Neut # (Auto) 6.61 H (1.40-6.50) K/uL Lymph # (Auto) 0.82 L (1.20-3.40) K/uL Chloride 96 L (98-107) mmol/L BUN/Creatinine Ratio 21.1 H (10-20) Glucose 147 H (70-99(Fasting)) mg/dl Lactate 5.2 H* (0.4-2.0) mmol/L Magnesium 1.3 L (1.7-2.4) mg/dl Diagnostic Findings Foot X-Ray 06/28/24 10:38 XR foot LT min 3V routine CLINICAL HISTORY: l foot ulcer COMPARISON: None FINDINGS: No fracture or dislocation. There is soft tissue swelling medial to the first MTP joint, possible soft tissue ulcer versus bunion. On the oblique view there is a small area of erosive change at the distal dorsal medial aspect of the first metatarsal. No other osseous destructive change seen. IMPRESSION: 1. Small chronic erosion versus early osteomyelitis distally at the first metatarsal. Suggest clinical correlation with location of the soft tissue ulcer. 2. No other evidence of osteomyelitis seen. ACT 112: Negative or not required by law. Electronically signed by: Tarun Gutiérrez M.D. 06/28/2024 12:26 PM ECG Additional Comments: ECG revealed sinus tachycardia at 106 bpm; QTc 475 Code Status & VTE Plan Code Status Full code VTE Prophylaxis Plan VTE Prophylaxis will be ordered: Yes Supervising Physician Co-Signing Physician Notes I personally saw and examined the patient. I independently reviewed the labs, EKG, imaging, problem list, medication list, past medical history and family history. I verified all sims points and agree with Oc Watt PA-C with the following exceptions and/or additions: 74 year old female with diabetes presents to the ER with left lower extremity cellulitis and unable to weight bear due to pain O/E HS RRR, no murmurs, Chest CTAB, Left lower extremity erythema and swelling as per picture above with skin thickening over MTP joint A/P Cellulitis and suspected osteomyelitis - IV vancomycin + cefepime, consult podiatry, US arterial doppler PG Care Time/CCT Total # of Minutes Spent Total Time Spent with Patient: Total time spent is greater than 50% in coordination of care (as documented) at patient's floor/unit and/or counseling patient: Coding [place] [address] INT INP/OBS CARE 3/75MIN Patient Type Established Medical Decision Making High Complexity Diagnoses Left leg cellulitis L03.116 Acute leg pain M79.606 Laterality: unspecified laterality Hypomagnesemia E83.42 Diabetes mellitus, type 2 E11.9 (2) Acute leg pain Laterality: unspecified laterality Qualified Code(s): M79.606 - Pain in leg, unspecified
[2024-06-28] MEDS: CEFEPIME 2000MG 2,000 MG/20 ML SYR IV STA (14:50)
[2024-06-28] MEDS: MAGNESIUM SULFATE / D5W 1 GM/100 ML BAG IV SCH (14:54)
--- NOTE | 2024-06-28 15:05 | Ultrasound Report ---
US arterial duplex LE LT CLINICAL HISTORY: Dimished pulse LLE diabetic COMPARISON STUDY: None FINDINGS: Duplex and color Doppler evaluation of the arterial system of the left lower extremity was performed. There is no evidence of occlusive disease. There is three-vessel patency identified into t he foot. There is scattered atherosclerotic plaque identified. Triphasic waveforms are identified in the commo n femoral artery and the proximal and mid superficial femoral artery. Monophasic waveforms are identi fied below the distal superficial femoral artery. Moderate velocity elevations are identified in the distal popliteal artery and within the dorsalis pedis artery. TRAMAINE indices were performed and the TRAMAINE value is 0.94 on the right and 1.10 on the left. These are fel t to be within the normal range. IMPRESSION: No evidence of occlusive disease or hemodynamically significant stenosis. Scattered plaq ue is identified throughout. Mild to moderate stenosis is suspected at the popliteal trifurcation and within the dorsalis pedis artery where velocity elevations in excess of 200 cm/s are noted.. ACT 112: Negative or not required by law. Electronically signed by: Aury Johnson M.D. 06/28/2024 3:02 PM
[2024-06-28] MEDS ORDERED: CARBOHYDRATES FOR HYPOGLYCEMIA PO PRN (16:30)
[2024-06-28] MEDS ORDERED: ALBUTEROL HFA 8 GM INHALER INH PRN (16:30)
[2024-06-28] MEDS ORDERED: ALBUTEROL 0.083% NEBU SOLN 3 ML VIAL INH PRN (16:30)
[2024-06-28] MEDS ORDERED: GLUCOSE 10 TAB/TUBE PO PRN (16:30)
[2024-06-28] MEDS ORDERED: GLUCOSE 40% GEL 15 GM TUBE PO PRN (16:30)
[2024-06-28] MEDS ORDERED: DEXTROSE 50% 50 ML SYRINGE IV PRN (16:30)
[2024-06-28] MEDS ORDERED: ONDANSETRON INJ 2 MG/ML 2 ML VIAL IV PRN (16:30)
[2024-06-28] MEDS ORDERED: GLUCAGON FOR INJ 1 MG VIAL SQ PRN (16:30)
[2024-06-28] MEDS ORDERED: MoRPHine SULFATE 2 MG/ML CARP IV PRN (16:30)
[2024-06-28] MEDS ORDERED: Patient's HEIGHT &/or WEIGHT Needed SCH (16:45)
[2024-06-28] MEDS: INSULIN ASPART PER UNIT CHARGE SC SCH (18:00)
[2024-06-28] MEDS: CEFEPIME 2000MG 2,000 MG/20 ML SYR IV SCH (21:00)
[2024-06-28] MEDS: ACETAMINOPHEN 325 MG TAB PO PRN (21:00)
[2024-06-28] MEDS: ENOXAPARIN INJ 40 MG/0.4 ML SYR SQ SCH (21:01)
[2024-06-28] MEDS: GABAPENTIN 300 MG CAP PO SCH (21:01)
[2024-06-28] MEDS: LUBIPROSTONE 8 MCG CAP PO SCH (21:02)
[2024-06-28] MEDS: MAGNESIUM OXIDE 400 MG TAB PO SCH (21:02)
[2024-06-28] MEDS: PRAMIPEXOLE DIHYDROCHLO 0.25 MG TAB PO SCH (21:03)
[2024-06-29] MEDS: VANCOMYCIN HCL 1,500 MG in SODIUM CHLORIDE 0.9% 500 ML IV SCH (05:12)
[2024-06-29] MEDS: FAMOTIDINE 40 MG TABLET PO SCH (07:47)
[2024-06-29] MEDS: PANTOprazole 40 MG TAB PO SCH (07:48)
[2024-06-29] MEDS: DULoxetine HCL 60 MG CAP PO SCH (07:48)
[2024-06-29 08:50] LABS: Estimated Average Glucose 166 mg/dl; Hemoglobin A1C 7.4 % (4.5-5.6)
[2024-06-29 08:55] LABS: Basophils # (auto) 0.01 K/uL (0.00-0.20); Basophils % (auto) 0.4 %; Eosinophils # (auto) 0.02 K/uL (0.00-0.50); Eosinophils % (auto) 0.7 %; Hematocrit (blood only) 35.3 % (37.0-47.0); Hemoglobin 11.5 g/dl (12.0-16.0); Immature Granulocytes # (auto) 0.01 K/uL (0.01-0.20); Immature Granulocytes % (auto) 0.4 %; Lymphocytes # (auto) 0.88 K/uL (1.20-3.40); Lymphocytes % (auto) 32.6 %; Mean Corpuscular Hemoglobin 29.3 pg (25.0-34.0); Mean Corpuscular Hgb Conc 32.6 g/dL (32.0-36.0); Mean Corpuscular Volume 89.8 fL (80.0-100.0); Mean Platelet Volume 9.6 fL (9.4-12.4); Monocytes # (auto) 0.22 K/uL (0.11-0.59); Monocytes % (auto) 8.1 %; Neutrophils # (auto) 1.56 K/uL (1.40-6.50); Neutrophils % (auto) 57.8 %; Platelet Count 237 K/uL (130-400); RDW Coefficient of Variation 14.6 % (11.5-14.5); RDW Standard Deviation 47.8 fL (36.4-46.3); Red Blood Count 3.93 M/uL (4.20-5.40)
[2024-06-29 08:58] LABS: BUN Creatinine Ratio 17.9 (10-20); Calcium 8.6 mg/dl (8.6-10.3); Creatinine Clr Calc Pharmacy 75.7 ml/min; Magnesium 1.7 mg/dl (1.7-2.4); Potassium 3.4 mmol/L (3.5-5.1)
--- NOTE | 2024-06-29 09:19 | Pharmacy Report ---
Pharmacy PK ABX Note - Date of Service June 29, 2024 - Assessment and Plan Assessment 74 year old F receiving empiric vancomycin and cefepime for treatment of LLE cellulitis w/ concern for osteomyelitis . Pertinent microbiologic data includes: blood cultures x 2 pending. Renal function appears to be at/near baseline. Day # 2 of antimicrobial therapy. Plan Vancomycin * Loading dose: 1750 mg IV x 1 * Maintenance dose: 1500 mg IV every 24 hours * Regimen is predicted to achieve target AUC/FRED of 400-600 mg/L.hr * Random level ordered for: 07/01/24 Cefepime * 2 g IV q8h - dosed appropriate for renal function/concern of osteomyelitis Pharmacy will continue to follow and will adjust dose/frequency as necessary. Thank you. Pharmacy has transitioned to AUC monitoring for vancomycin. AUC/FRED is the preferred PK/PD target and is associated with decreased risk of nephrotoxicity compared to traditional trough targets.
[2024-06-29] MEDS: POTASSIUM CHLORIDE CRTAB 20 MEQ TABCR PO STA (10:26)
[2024-06-29] MEDS: MAGNESIUM SULFATE / D5W 1 GM/100 ML BAG IV ONE (10:26)
[2024-06-29] MEDS: LANTUS PER UNIT CHARGE SQ SCH (10:26)
[2024-06-29] MEDS ORDERED: VANCOMYCIN HCL 1,250 MG in SODIUM CHLORIDE 0.9% 250 ML IV SCH (12:20)
--- NOTE | 2024-06-29 14:00 | Hospitalist Progress Note ---
Date of Service June 29, 2024 Assessment & Plan (1) Left leg cellulitis: (2) Chronic ulcer of left foot with fat layer exposed: (3) Hypomagnesemia: (4) Diabetes mellitus, type 2: Plan Rosa is a 74-year-old female with PMH of T2DM, HLD, sleep apnea, DVT, depression, and anxiety. She p/w left leg pain, erythema, and an open draining wound on left foot x 3 weeks. #Left lower extremity cellulitis/possible osteomyelitis of distal 1st MT-seen on xray. Arterial Doppler of the LLE without HD significant stenosis-does have mild-mod stenosis of popliteal trifurcation, normal ABIs. No fevers or leukocytosis, no sepsis. Procal neg but lactate high at 5 on admission and down to 3. Feeling significantly improved after 24 hrs of IV antibiotics-pain and erythema have improved. Appreciate Podiatry consult -continue Cefepime and Vanco for broad spectrum coverage in setting of having DMII -continue to follow clinically, follow CBC, BMP -check MRI left foot -Podiatry did bedside debridement with wound cx collection-follow wound cx; Blood cxs pending -possible ulcer debridement with Podiatry on 07/01 -continue Acetaminophen as needed for pain/fever, and Morphine as needed for breakthrough pain #Hypomagnesemia-Magnesium 1.3 on arrival-now replaced and resolved. Could be due to PPI use, HCTZ use -holding home HCTZ -continue po mag oxide #[id number] at 7.4% here, well controlled -Hold metformin, glimepiride -continue Lantus and Novolog while inpt -continue duloxetine, gabapentin for neuropathy pain #Sinus tachycardia-on arrival, now resolved with IVFs and related to acute infection, Troponin WNL No need for further tele #HTN-BPs controlled -cont to hold HCTZ #GERD-continue pepcid and PPI #RLS-continue pramipexole Disposition: Admit to [facility] with telemetry DVT proph- Lovenox 40 mg SQ q24h Admission and Anticipated Discharge Date Admission Date: June 28, 2024 Subjective Pt reports significant improvement in the pain in her left leg and foot since admission and redness has improved as well. Reports wound on her foot started about 3 weeks ago. Denies other issues except chronic severe right shoulder pain-asks about treatment for this other than surgery-has already had multiple injections. Physical Exam Constitutional: WD/WN, vitals as above Respiratory: normal respiratory effort, lungs clear to auscultation Cardiovascular: RRR, no murmur, no edema Skin: + ulcer (plantar surface left 2nd MTP monika int 1 cm open wound with drainage) and + erythema (very mild of left foot and leg to mid tibia) Results & Data Results & Data Vital Signs (Past 12 Hours) Vital Signs Temp Pulse Pulse Resp BP Pulse Ox O2 Del Method 06/29/24 12:54 Room Air 06/29/24 11:31 36.7 C 74 16 112/71 91 Room Air 06/29/24 07:33 36.6 C 77 14 105/59 L 95 Room Air 06/29/24 07:15 69 06/29/24 02:45 36.6 C 74 18 115/69 94 Nasal Cannula O2 Flow Rate 06/29/24 12:54 06/29/24 11:31 06/29/24 07:33 06/29/24 07:15 06/29/24 02:45 2 Laboratory Results CBC, BMP, HgbA1C, lactate, PCT, mag reviewed Diagnostic Findings KUB reviewed PG Care Time/CCT Total # of Minutes Spent Total Time Spent with Patient: Total time spent is greater than 50% in coordination of care (as documented) at patient's floor/unit and/or counseling patient: Coding Level of Care Code 11322 SUB INP/OBS CARE 3/50MIN Diagnoses Left leg cellulitis L03.116 Chronic ulcer of left foot with fat layer exposed L97.522 Hypomagnesemia E83.42 Diabetes mellitus, type 2 E11.9
--- NOTE | 2024-06-29 14:20 | Podiatry Consultation ---
Date of Consultation June 29, 2024 Assessment & Plan (1) Left leg cellulitis: (2) Diabetic foot ulcer: Diabetes mellitus type: other specified (including MUKESH) Diabetic foot ulcer location: unspecified part of foot Laterality: left Non-pressure ulcer stage: unspecified non-pressure ulcer stage Qualified Code(s): E13.621 - Other specified diabetes mellitus with foot ulcer; L97.529 - Non-pressure chronic ulcer of other part of left foot with unspecified severity (3) Acute leg pain: Laterality: unspecified laterality Qualified Code(s): M79.606 - Pain in leg, unspecified (4) Cellulitis: Site of cellulitis: unspecified site Qualified Code(s): L03.90 - Cellulitis, unspecified (5) Chronic ulcer of left foot with fat layer exposed: Plan -Patient examined and evaluated. - Lightly debrided wound at bedside. Deep wound cultures obtained. - Dressed with Optifoam border gauze. Can continue this dressing daily, likely with mupirocin. - MRI ordered. Will review to determine level of surgical intervention. - Will plan surgery for ; can be excisional debridement with deeper cultures/pathology versus amputation, pending imaging. - Will follow. History of Present Illness Reason for Consultation: Left foot wound Attending Physician: Jessica Leonard MD History of Present Illness [facility] and treatment of left foot infection. she states that she noticed a wound develop around 3 weeks or so ago and has not had similar wounds in the past. She has had long-standing calluses but they have not given her much concern. She has seen a floral assistant locally for this though not for several months as well., She does admit to systemic signs of infection which is what led her to seeking treatment. She has had IV antibiotics since admission and is feeling better but is interested in what she needs to have performed to help heal this wound. Allergies Allergy/AdvReac Type Severity Reaction Status Date / Time cefuroxime AdvReac Intermediate upset Verified 06/28/24 13:59 stomach prochlorperazine AdvReac Intermediate Confusion Verified 06/28/24 13:59 [From Compazine] Home Medications Medication Instructions Recorded Confirmed Type albuterol sulfate 90 mcg/actuation 2 puffs inhalation Q4H PRN 08/08/19 06/28/24 History aerosol inhaler shortness of breath or wheezing glipizide 2.5 mg tablet, extended 2.5 mg PO BID 06/05/20 06/28/24 History release 24 hr metformin 1,000 mg tablet 1,000 mg PO BID 06/05/20 06/28/24 History pantoprazole 40 mg tablet,delayed 40 mg PO QAM 06/05/20 06/28/24 History release gabapentin 300 mg capsule 900 mg PO TID 08/07/20 06/28/24 History multivitamin 1 tab PO QAM 08/28/22 06/28/24 History psyllium husk (with sugar) 3.4 2 tbsp PO QAM 07/01/23 06/28/24 History gram/7 gram oral powder (Metamucil (with sugar)) triamcinolone acetonide 0.1 % 1 applic topical DAILY PRN dry legs 07/01/23 06/28/24 History topical cream acetaminophen 325 mg tablet 650 mg (2 x 325 mg) PO Q4H PRN 07/04/23 06/28/24 Rx pain #30 tabs albuterol sulfate 2.5 mg/3 mL 2.5 mg (3 mL) inhalation Q6H PRN 07/04/23 06/28/24 Rx (0.083 %) solution for nebulization Shortness Of Breath #180 mL magnesium 250 mg tablet 250 mg PO HS #30 tabs 07/04/23 06/28/24 Rx guaifenesin 600 mg tablet, 1,200 mg PO Q12 PRN Congestion 10/30/23 06/28/24 History extended release 12 hr (Mucinex) duloxetine 60 mg capsule,delayed 60 mg PO DAILY 03/25/24 06/28/24 History release (Cymbalta) famotidine 40 mg tablet 40 mg PO DAILY 05/06/24 06/28/24 History hydrochlorothiazide 25 mg tablet 25 mg PO DAILY 05/06/24 06/28/24 History lubiprostone 24 mcg capsule 24 mcg PO BID 06/28/24 06/28/24 History (Amitiza) pramipexole 0.25 mg tablet 0.25 mg PO TID 06/28/24 06/28/24 History urea 10 % topical cream 1 applic topical BID PRN Legs/Feet 06/28/24 06/28/24 History dryness Patient History Medical History Hx of fall 04/2020>FELL AND HOSPITALIZED FOR COVID/HYPOXIA AND "BROKE MY BACK>SENT TO [facility]. WAS IN A DRUG INDUCED COMA FOR WEEKS/HAD BACK SURGERY". History of COVID-19 04/2020 (HOSPITALIZED IN [facility])>RESOLVED Hx of gout GERD (gastroesophageal reflux disease) Well controlled and stable Restless leg syndrome History of kidney stones Surgical History History of back surgery 4 TOTAL BACK SURGERIES Most recent - T8-L1 Jun 2020 L2-L5 (prior) (04/2020) History of esophagogastroduodenoscopy (EGD) History of colonoscopy History of tooth extraction H/O varicose vein ligation and stripping Saphenous vein History of open reduction and internal fixation (ORIF) procedure RT ANKLE History of section X 3 History of herniorrhaphy 02/21/15 - Repair of incarcerated incisional hernia with Surgimesh 10cm in diameter resection of incarcerated omentum by Dr Knutson History of appendectomy 10/19/12 - laparoscopic by Dr Herrera Family History Mother , age 77 of heart issues Osteoporosis Heart disease Cancer Hypertension Brother Diabetes Family history of diabetes mellitus Daughter Cervical cancer Father , Patient age 91 with Parkinson's disease Parkinsons Other No family history of adverse response to anesthesia Denies family history of Ovarian cancer Breast cancer Colorectal cancer Stroke Asthma Social History Smoking Status: Never smoker Second Hand Exposure: No; Do You Dip or Chew Tobacco: No; Tobacco Cessation Education Requested by Patient: No Hx Alcohol Use: No Hx Substance Use: No Preferred Language: Vietnamese Communication Ability: Effective Visual Impairment: No Limitations Hearing Ability: Normal Nursing Student Required: No Beliefs That Will Affect Care: Sikhism Sikhism Beliefs: Roman Catholic marital status: Current Living Situation: Spouse current occupational status: retired 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 Other Information That Helps Us Care for You: No Feels Safe at Home: Yes Safety Concerns: Feels Safe At This Time Dental Care, Regularly: Yes Physical Activity Frequency: Does not Exercise Assistive Devices: Cane and Walker Review of Systems Review of Systems: All systems reviewed & are unremarkable except as noted in HPI & below Constitutional: no fever, no chills and no fatigue Eyes: no problem reported Ear, Nose, Mouth, Throat: no problem reported Respiratory: no problem reported Cardiovascular: + edema; no problem reported Gastrointestinal: no nausea, no vomiting and no problem reported Genitourinary: no problem reported Musculoskeletal: no problem reported Integumentary: + skin ulcer, + wounds and + erythema Neurologic: + loss of sensation, + numbness and + pa resthesia; no generalized weakness Psychiatric: no problem reported Physical Exam Physical Exam: Lower extremity focused exam: DP/PT pulses nonpalpable. CFT brisk to digits. Skin thin, atrophic. Nails 1-5 b/l dystrophic. Cellulitis to left lower extremity is noted, all distal to proximal extent margin previously noted. Ulceration is noted sub 1st MTPJ, neuropathic in origin. Overlying hyperkeratotic skin is minimal, small on the surface, measuring 2x0.8cm and crescent shaped. On probing, it does probe and tunnel deeper, with suspicion of involvement of the 1st MTPJ or sesamoid apparatus. Tunneling extends laterally, under the 2nd MTPJ with no deeper extension there. No medhat purulence. No active bleeding on probing/clinical exam. Constitutional: WD/WN, vitals as above + ill appearing and + obese Eyes: PERRL, conjunctivae normal, anicteric sclerae ENMT: external ear and nose normal, oropharynx normal Neck: trachea midline, no thyromegaly normal visual inspection Respiratory: normal respiratory effort; no respiratory distress Cardiovascular: Rate/Rhythm: regular rate and regular rhythm Vessels: + posterior tibial pulses abnormal and + dorsalis pedis pulses abnormal Extremities: normal capillary refill Arterial doppler reviewed; suggestive of more proximal inflow disease with adequate bloodflow noted to foot/ankle b/l. Chest (Breasts): Chest: normal inspection of chest Gastrointestinal (Abdomen): Inspection/Auscultation: abdomen normal to inspection Percussion/Palpation: + abdomen tender and abdomen soft Musculoskeletal: no cyanosis or clubbing, extremities motor strength 5/5 Head/Neck/Chest: normocephalic and head atraumatic Extremities: extremities normal to inspection Skin: + ulcer, + wound, + skin atrophy, + eryt diamond and + nails dystrophic Neurologic: awake; + abnormal touch/pain/proprioception, + abnormal sensation to monofilament and no focal motor deficits Psychiatric: A+Ox3, euthymic affect Results & Data Vital Signs (Past 12 Hours) Vital Signs Temp Pulse Pulse Resp BP Pulse Ox O2 Del Method 06/29/24 12:54 Room Air 06/29/24 11:31 36.7 C 74 16 112/71 91 Room Air 06/29/24 07:33 36.6 C 77 14 105/59 L 95 Room Air 06/29/24 07:15 69 06/29/24 02:45 36.6 C 74 18 115/69 94 Nasal Cannula O2 Flow Rate 06/29/24 12:54 06/29/24 11:31 06/29/24 07:33 06/29/24 07:15 06/29/24 02:45 2
--- NOTE | 2024-06-29 14:59 | XRay Report ---
XR KUB pre MRI CLINICAL HISTORY: pre MRI pain pump location COMPARISON STUDY: KUB May 18, 2024. FINDINGS: The orientation of the right lower quadrant pain pump is normal. The catheter is not entire ly imaged on this examination. Postoperative findings within the thoracolumbar spine are noted. Bowel gas pattern is normal. No unexpected radiopaque foreign bodies within the abdomen or pelvis. IMPRESSION: Normal orientation of the right lower quadrant pain pump. No contraindication to MRI wit hin the abdomen or pelvis. ACT 112: Negative or not required by law. Electronically signed by: Nir Jerome M.D. 06/29/2024 2:58 PM
[2024-06-29] MEDS: CELECOXIB 100 MG CAP PO SCH (15:15)
[2024-06-30 06:39] LABS: Basophils # (auto) 0.03 K/uL (0.00-0.20); Basophils % (auto) 0.8 %; Eosinophils # (auto) 0.14 K/uL (0.00-0.50); Eosinophils % (auto) 3.6 %; Hematocrit (blood only) 33.8 % (37.0-47.0); Immature Granulocytes # (auto) 0.01 K/uL (0.01-0.20); Immature Granulocytes % (auto) 0.3 %; Lymphocytes # (auto) 1.54 K/uL (1.20-3.40); Lymphocytes % (auto) 39.8 %; Mean Corpuscular Hemoglobin 29.6 pg (25.0-34.0); Mean Corpuscular Hgb Conc 32.5 g/dL (32.0-36.0); Mean Corpuscular Volume 91.1 fL (80.0-100.0); Mean Platelet Volume 9.9 fL (9.4-12.4); Monocytes # (auto) 0.39 K/uL (0.11-0.59); Monocytes % (auto) 10.1 %; Neutrophils # (auto) 1.76 K/uL (1.40-6.50); Neutrophils % (auto) 45.4 %; Platelet Count 221 K/uL (130-400); RDW Coefficient of Variation 14.5 % (11.5-14.5); RDW Standard Deviation 48.4 fL (36.4-46.3); Red Blood Count 3.71 M/uL (4.20-5.40); White Blood Count 3.87 K/ul (4.8-10.8)
[2024-06-30 06:47] LABS: Calcium 8.9 mg/dl (8.6-10.3); Magnesium 1.8 mg/dl (1.7-2.4); Potassium 3.7 mmol/L (3.5-5.1)
[2024-06-30 06:52] LABS: BUN Creatinine Ratio 17.4 (10-20); Creatinine Clr Calc Pharmacy 73.5 ml/min
--- NOTE | 2024-06-30 12:49 | Magnetic Resonance Report ---
MRI OF THE LEFT FOREFOOT WITHOUT CONTRAST CLINICAL HISTORY: Left foot open wound. Evaluate for osteomyelitis. COMPARISON STUDY: Left foot radiographs June 28, 2024. TECHNIQUE: Utilizing a 1.5 [place] magnet and dedicated coil, multiplanar, multi echo imaging of the le ft forefoot was performed without intravenous contrast. FINDINGS: Alignment of the left midfoot is anatomic. Tarsometatarsal joints are intact. No fractures are identified. Lisfranc ligament is intact. There is extensive dorsal subcutaneous edema of the left midfoot and forefoot. No well-defined fluid collection is identified. A marker is placed on the skin at site of wound. This overlying the dorsal forefoot. No marrow edema within the left forefoot is pr esent to suggest osteomyelitis. There is moderate osteoarthrosis of the left first metatarsophalangea l joint. There is a small left first MTP joint effusion. IMPRESSION: 1. No evidence for acute osteomyelitis within the left forefoot. 2. Extensive dorsal subcutaneous fluid of the left forefoot and midfoot. This may reflect edema or ce llulitis. No fluid collection to suggest abscess. ACT 112: Negative or not required by law. Electronically signed by: Nir Jerome M.D. 06/30/2024 12:47 PM
--- NOTE | 2024-06-30 17:13 | Hospitalist Progress Note ---
Date of Service June 30, 2024 Assessment & Plan (1) Left leg cellulitis: (2) Chronic ulcer of left foot with fat layer exposed: (3) Hypomagnesemia: (4) Diabetes mellitus, type 2: Plan Rosa is a 74-year-old female with PMH of T2DM, HLD, sleep apnea, DVT, depression, and anxiety. She p/w left leg pain, erythema, and an open draining wound on left foot x 3 weeks. #Left lower extremity cellulitis/PAD-possible osteomyelitis of distal 1st MT seen on xray, but MRI foot neg for OM. Arterial Doppler of the LLE without HD significant stenosis-does have mild-mod stenosis of popliteal trifurcation, normal ABIs. No fevers or leukocytosis, no sepsis. Procal neg but lactate high at 5 on admission and down to 3. Feeling significantly improved after 24 hrs of IV antibiotics-pain and erythema have improved. Appreciate Podiatry consult-plan for debridement of foot ulcer on 06/21. Still suspects sesamoid bone OM but will know better on direct visualization in OR Wound cx with Staph aureus, sensitivity pending -continue Cefepime and Vanco for broad spectrum coverage in setting of having DMII -continue to follow clinically, follow CBC, BMP -follow wound cx; Blood cxs pending -make NPO after midnight -continue Acetaminophen as needed for pain/fever, and Morphine as needed for breakthrough pain #Hypomagnesemia-Magnesium 1.3 on arrival-now replaced and resolved. Could be due to PPI use, HCTZ use -holding home HCTZ -continue po mag oxide #[id number] at 7.4% here, well controlled -Hold metformin, glimepiride -continue Lantus and Novolog while inpt -continue duloxetine, gabapentin for neuropathy pain #Sinus tachycardia-on arrival, now resolved with IVFs and related to acute infection, Troponin WNL Has since transferred off tele #HTN-BPs controlled -cont to hold HCTZ #GERD-continue pepcid and PPI #RLS-continue pramipexole Disposition: continued stay on MedSurg DVT proph-hold Lovenox 40 mg SQ q24h for surgery tomorrow Admission and Anticipated Discharge Date Admission Date: June 28, 2024 Subjective Pt reports some swelling in leg but has been in her chair sitting all day. No CP, SOB. Had a little lightheadedness earlier Reports the Celebrex definitely has helped her right shoulder pain but feels there is more room for improvement. Physical Exam Constitutional: WD/WN, vitals as above Respiratory: normal respiratory effort, lungs clear to auscultation Cardiovascular: Rate/Rhythm: regular rate and regular rhythm Extremities: + edema (1+ pitting edema L>R legs) Skin: + ulcer (plantar surface left 2nd MTP monika int 1 cm open wound with drainage) and + erythema (very mild of left foot and leg to mid tibia) Results & Data Results & Data Vital Signs (Past 12 Hours) Vital Signs Temp Pulse Resp BP Pulse Ox O2 Del Method O2 Del Method 06/30/24 16:00 Room Air 06/30/24 15:10 36.3 C L 71 16 121/62 92 Room Air 06/30/24 11:00 Room Air 06/30/24 07:33 36.6 C 58 L 16 119/64 94 Room Air Laboratory Results CBC, BMP, mag level, wound cx, blood cxs, and MRI foot reviewed PG Care Time/CCT Total # of Minutes Spent Total Time Spent with Patient: Total time spent is greater than 50% in coordination of care (as documented) at patient's floor/unit and/or counseling patient: Coding Level of Care Code 71688 SUB INP/OBS CARE 2/35MIN Diagnoses Left leg cellulitis L03.116 Chronic ulcer of left foot with fat layer exposed L97.522 Hypomagnesemia E83.42 Diabetes mellitus, type 2 E11.9
[2024-06-30] MEDS: MUPIROCIN 2% OINT 22 GM TUBE EXT SCH (17:44)
--- NOTE | 2024-06-30 21:08 | Podiatry Progress Note ---
Date of Service June 30, 2024 Assessment & Plan (1) Left leg cellulitis: (2) Diabetic foot ulcer: (3) Acute leg pain: (4) Cellulitis: (5) Chronic ulcer of left foot with fat layer exposed: Plan -Patient examined and evaluated. - Lightly debrided wound at bedside. Deep wound cultures growing Staph aureus, senitivities pending. - Dressed with Optifoam border gauze. - Scheduled for excisional debridement tomorrow afternoon. - Can likely d/c home shortly after if everything appears stable/consistent. Admission and Anticipated Discharge Date Admission Date: June 28, 2024 Subjective Pt seen at bedside. Doing well and sitting up, eating dinner. No new concerns. Had MRI. Scheduled for surgery tomorrow; interested in the plan for her feet. Review of Systems Constitutional: no fever, no chills and no fatigue Eyes: no problem reported Ear, Nose, Mouth, Throat: no problem reported Respiratory: no problem reported Cardiovascular: + edema; no problem reported Gastrointestinal: no nausea, no vomiting and no problem reported Genitourinary: no problem reported Musculoskeletal: no problem reported Integumentary: + skin ulcer, + wounds and + erythema Neurologic: + loss of sensation, + numbness and + pa resthesia; no generalized weakness Psychiatric: no problem reported Physical Exam Physical Exam: Lower extremity focused exam: DP/PT pulses nonpalpable. CFT brisk to digits. Skin thin, atrophic. Nails 1-5 b/l dystrophic. Cellulitis to left lower extremity is noted, all distal to proximal extent margin previously noted. Ulceration is noted sub 1st MTPJ, neuropathic in origin. Overlying hyperkeratotic skin is minimal, small on the surface, measuring 2x0.8cm and c rescent shaped. On probing, it does probe and tunnel deeper, with suspicion of involvement of the 1st MTPJ or sesamoid apparatus. Tunneling extends laterally, under the 2nd MTPJ with no deeper extension there. No medhat purulence. No active bleeding on probing/clinical exam. Constitutional: WD/WN, vitals as above + ill appearing and + obese Eyes: PERRL, conjunctivae normal, anicteric sclerae ENMT: external ear and nose normal, oropharynx normal Neck: trachea midline, no thyromegaly normal visual inspection Respiratory: normal respiratory effort; no respiratory distress Cardiovascular: Rate/Rhythm: regular rate and regular rhythm Vessels: + posterior tibial pulses abnormal and + dorsalis pedis pulses abnormal Extremities: normal capillary refill Chest (Breasts): Chest: normal inspection of chest Gastrointestinal (Abdomen): Inspection/Auscultation: abdomen normal to inspection Percussion/Palpation: + abdomen tender and abdomen soft Musculoskeletal: no cyanosis or clubbing, extremities motor strength 5/5 Head/Neck/Chest: normocephalic and head atraumatic Extremities: extremities normal to inspection Skin: + ulcer, + wound, + skin atrophy, + eryt diamond and + nails dystrophic Neurologic: awake; + abnormal touch/pain/proprioception, + abnormal sensation to monofilament and no focal motor deficits Psychiatric: A+Ox3, euthymic affect Results & Data Results & Data Vital Signs (Past 12 Hours) Vital Signs Temp Pulse Resp BP Pulse Ox O2 Del Method O2 Del Method 06/30/24 16:00 Room Air 06/30/24 15:10 36.3 C L 71 16 121/62 92 Room Air 06/30/24 11:00 Room Air Diagnostic Findings MRI Reveals no obvious osteomyelitis though wound does seem to extend to the tibial sesamoid, or barely superficial. There is concern for bone marrow edema within this tibial sesamoid, too. 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 (2) Diabetic foot ulcer Diabetes mellitus type: other specified (including MUKESH) Diabetic foot ulcer location: unspecified part of foot Laterality: left Non-pressure ulcer stage: unspecified non-pressure ulcer stage Qualified Code(s): E13.621 - Other specified diabetes mellitus with foot ulcer; L97.529 - Non-pressure chronic ulc er of other part of left foot with unspecified severity (3) Acute leg pain Laterality: unspecified laterality Qualified Code(s): M79.606 - Pain in leg, unspecified (4) Cellulitis Site of cellulitis: unspecified site Qualified Code(s): L03.90 - Cellulitis, unspecified
[2024-06-30] MEDS: CELECOXIB 100 MG CAP PO SCH (22:04)
[2024-07-01 05:53] LABS: Hematocrit (blood only) 34.6 % (37.0-47.0); Hemoglobin 11.6 g/dl (12.0-16.0); Mean Corpuscular Hemoglobin 30.1 pg (25.0-34.0); Mean Corpuscular Hgb Conc 33.5 g/dL (32.0-36.0); Mean Corpuscular Volume 89.6 fL (80.0-100.0); Mean Platelet Volume 9.6 fL (9.4-12.4); Platelet Count 241 K/uL (130-400); RDW Coefficient of Variation 14.6 % (11.5-14.5); RDW Standard Deviation 47.8 fL (36.4-46.3); Red Blood Count 3.86 M/uL (4.20-5.40); White Blood Count 4.31 K/ul (4.8-10.8)
[2024-07-01 06:08] LABS: BUN Creatinine Ratio 19.7 (10-20); Creatinine Clr Calc Pharmacy 76.9 ml/min; Magnesium 1.6 mg/dl (1.7-2.4); Potassium 3.7 mmol/L (3.5-5.1)
[2024-07-01 06:37] LABS: ALC (manual) 2.28 K/uL (1.2-3.4); ANC (manual) 1.42 K/uL (1.4-6.5); Basophils # (manual) 0.04 K/uL (0-0.2); Basophils % (manual) 1 %; Eosinophils # (manual) 0.13 K/uL (0-0.50); Eosinophils % (manual) 3 %; Large Granular Lymph # (manua 0.73 K/uL; Large Granular Lymph % (manual) 17 %; Lymphocytes # (manual) 1.55 K/uL (1.2-3.4); Lymphocytes % (manual) 36 %; Monocytes # (manual) 0.43 K/uL (0.11-0.59); Monocytes % (manual) 10 %; Neutrophils # (manual) 1.42 K/uL (1.40-6.50); Neutrophils % (manual) 33 %
[2024-07-01] MEDS: VANCOMYCIN LEVEL ONE (07:48)
--- NOTE | 2024-07-01 08:37 | Pain Management Consultation ---
Date of Consultation July 01, 2024 Assessment & Plan (1) Chronic ulcer of left foot with fat layer exposed: (2) Diabetic foot ulcer: Diabetes mellitus type: other specified (including MUKESH) Diabetic foot ulcer location: unspecified part of foot Laterality: left Non-pressure ulcer stage: unspecified non-pressure ulcer stage Qualified Code(s): E13.621 - Other specified diabetes mellitus with foot ulcer; L97.529 - Non-pressure chronic ulcer of other part of left foot with unspecified severity (3) Implantable intrathecal infusion pump present: Plan Intrathecal pump was interrogated. Pump motor stall occurred at 12:13 PM on 06/30/2024 and resumed on 12:43 PM. Intrathecal pump has resumed post MRI. No changes were made. History of Present Illness Attending Physician: Jessica Leonard MD History of Present Illness This is a 74-year-old female that is well-known to the [facility] pain service for chronic intractable low back pain that has required the implantation of an intrathecal pump and catheter delivery system containing hydromorphone. She is currently admitted for left foot wound have a left foot MRI yesterday that shows extensive subcutaneous fluid reflective of cellulitis. No acute osteomyelitis noted. She denies any change of chronic low back pain. Case discussed with Dr. Kellee Fields Allergies Allergy/AdvReac Type Severity Reaction Status Date / Time cefuroxime AdvReac Intermediate upset Verified 06/28/24 13:59 stomach prochlorperazine AdvReac Intermediate Confusion Verified 06/28/24 13:59 [From Compazine] Home Medications Medication Instructions Recorded Confirmed Type albuterol sulfate 90 mcg/actuation 2 puffs inhalation Q4H PRN 08/08/19 06/28/24 History aerosol inhaler shortness of breath or wheezing glipizide 2.5 mg tablet, extended 2.5 mg PO BID 06/05/20 06/28/24 History release 24 hr metformin 1,000 mg tablet 1,000 mg PO BID 06/05/20 06/28/24 History pantoprazole 40 mg tablet,delayed 40 mg PO QAM 06/05/20 06/28/24 History release gabapentin 300 mg capsule 900 mg PO TID 08/07/20 06/28/24 History multivitamin 1 tab PO QAM 08/28/22 06/28/24 History psyllium husk (with sugar) 3.4 2 tbsp PO QAM 07/01/23 06/28/24 History gram/7 gram oral powder (Metamucil (with sugar)) triamcinolone acetonide 0.1 % 1 applic topical DAILY PRN dry legs 07/01/23 06/28/24 History topical cream acetaminophen 325 mg tablet 650 mg (2 x 325 mg) PO Q4H PRN 07/04/23 06/28/24 Rx pain #30 tabs albuterol sulfate 2.5 mg/3 mL 2.5 mg (3 mL) inhalation Q6H PRN 07/04/23 06/28/24 Rx (0.083 %) solution for nebulization Shortness Of Breath #180 mL magnesium 250 mg tablet 250 mg PO HS #30 tabs 07/04/23 06/28/24 Rx guaifenesin 600 mg tablet, 1,200 mg PO Q12 PRN Congestion 10/30/23 06/28/24 History extended release 12 hr (Mucinex) duloxetine 60 mg capsule,delayed 60 mg PO DAILY 03/25/24 06/28/24 History release (Cymbalta) famotidine 40 mg tablet 40 mg PO DAILY 05/06/24 06/28/24 History hydrochlorothiazide 25 mg tablet 25 mg PO DAILY 05/06/24 06/28/24 History lubiprostone 24 mcg capsule 24 mcg PO BID 06/28/24 06/28/24 History (Amitiza) pramipexole 0.25 mg tablet 0.25 mg PO TID 06/28/24 06/28/24 History urea 10 % topical cream 1 applic topical BID PRN Legs/Feet 06/28/24 06/28/24 History dryness Patient History Medical History Hx of fall 04/2020>FELL AND HOSPITALIZED FOR COVID/HYPOXIA AND "BROKE MY BACK>SENT TO [facility]. WAS IN A DRUG INDUCED COMA FOR WEEKS/HAD BACK SURGERY". History of COVID-19 04/2020 (HOSPITALIZED IN [facility])>RESOLVED Hx of gout GERD (gastroesophageal reflux disease) Well controlled and stable Restless leg syndrome History of kidney stones Surgical History History of back surgery 4 TOTAL BACK SURGERIES Most recent - T8-L1 Jun 2020 L2-L5 (prior) (04/2020) History of esophagogastroduodenoscopy (EGD) History of colonoscopy History of tooth extraction H/O varicose vein ligation and stripping Saphenous vein History of open reduction and internal fixation (ORIF) procedure RT ANKLE History of section X 3 History of herniorrhaphy 02/21/15 - Repair of incarcerated incisional hernia with Surgimesh 10cm in diameter resection of incarcerated omentum by Dr Knutson History of appendectomy 10/19/12 - laparoscopic by Dr Herrera Family History Mother , age 77 of heart issues Osteoporosis Heart disease Cancer Hypertension Brother Diabetes Family history of diabetes mellitus Daughter Cervical cancer Father , Patient age 91 with Parkinson's disease Parkinsons Other No family history of adverse response to anesthesia Denies family history of Ovarian cancer Breast cancer Colorectal cancer Stroke Asthma Social History Smoking Status: Never smoker Second Hand Exposure: No; Do You Dip or Chew Tobacco: No; Tobacco Cessation Education Requested by Patient: No Hx Alcohol Use: No Hx Substance Use: No Preferred Language: Syriac Communication Ability: Effective Visual Impairment: No Limitations Hearing Ability: Normal 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 Required: No Beliefs That Will Affect Care: Congregational Congregational Beliefs: Jainism marital status: Current Living Situation: Spouse current occupational status: retired 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 HEAD/FACE: Normocephalic and atraumatic. EYES: No drainage or conjunctival injection. ENT: Nose without bleeding or discharge. Oral mucosa moist. NECK: Full ROM without apparent pain. No swelling or masses noted. RESPIRATORY: Patient with unlabored breathing. No signs of respiratory distress. CHEST/AXILLA: Chest movement symmetrical. No deformities noted. ABDOMEN/GI: No distension. Intrathecal pump is located in the right lower abdomen. No edema, erythema, or mobility noted. BACK: Moves without difficulty SKIN: Chrisman, warm and dry. No rash noted. MS/EXTREMITY: + left foot cellulitis. NEURO: Alert and appears oriented. Speech is fluent. Cranial Nerves are grossly intact. PSYCH: Alert, pleasant, affect is calm
[2024-07-01] MEDS: MAGNESIUM SULFATE / D5W 1 GM/100 ML BAG IV ONE (09:53)
[2024-07-01] MEDS ORDERED: PROPOFOL IV EMULSION 10 MG/ML 20 ML VIAL IV ONE (13:22)
[2024-07-01] MEDS ORDERED: LIDOCAINE 2% 2 ML VIAL/AMP(20MG/ML) INFIL ONE (13:22)
[2024-07-01] MEDS ORDERED: MIDAZOLAM HCL 1 MG/ML 2ML VIAL ONE (13:22)
[2024-07-01] MEDS ORDERED: fentaNYL citrate PF 100 MCG/2 ML VIAL ONE (13:22)
[2024-07-01] MEDS ORDERED: ONDANSETRON INJ 2 MG/ML 2 ML VIAL ONE (13:22)
[2024-07-01] MEDS ORDERED: DEXAMETHASONE SOD INJ 4 MG/ML VIAL ONE (13:22)
[2024-07-01] MEDS ORDERED: GLYCOPYRROLATE 0.2 MG/ML VIAL ONE (13:23)
--- NOTE | 2024-07-01 13:23 | History & Physical Bridge Note ---
Date of Service July 01, 2024 History & Physical Bridge Note I have examined the patient, reviewed the History & Physical and in the interval since the performance of the History & Physical I have noted the following changes of clinical significance: no changes noted. Plan for left Excisional debridement with bone biopsy of left foot. Preoperative instructions, postoperative instructions, relative risks, and outcomes were discussed at length. All questions were answered. Consent was obtained for this procedure.
[2024-07-01] MEDS: LACTATED RINGER'S 1,000 ML IV SCH (13:25)
[2024-07-01] MEDS: SODIUM CHLORIDE 0.9% 1,000 ML IV SCH (13:37)
--- NOTE | 2024-07-01 13:41 | Anesthesiology Consultation ---
Date of Service July 01, 2024 Assessment & Plan Chart Review Chart Review: Acceptable Risk for Surgery and Patient NOT seen in Pre Admission Testing Consults Requested none ASA ASA4 Proposed Anesthesia Anesthesia Type: MAC Risk / Benefits Reviewed With: PT / POA / Parent / Guardian, Accepts Plan and Informed Consent Obtained History Surgery Operation Date: 07/01/24 13:30 Proposed Procedures p Left Foot Wound Debridement - Lenny Paige, STACIE Height/Weight Height: 5 ft 1 in Weight: 86.3 kg Allergies Allergy/AdvReac Type Severity Reaction Status Date / Time cefuroxime AdvReac Intermediate upset Verified 06/28/24 13:59 stomach prochlorperazine AdvReac Intermediate Confusion Verified 06/28/24 13:59 [From Compazine] Medications Home Medications Medication Instructions Recorded Confirmed Last Taken albuterol sulfate 90 mcg/actuation 2 puffs inhalation Q4H PRN 08/08/19 06/28/24 Unknown aerosol inhaler shortness of breath or wheezing glipizide 2.5 mg tablet, extended 2.5 mg PO BID 06/05/20 06/28/24 06/28/24 release 24 hr metformin 1,000 mg tablet 1,000 mg PO BID 06/05/20 06/28/24 06/28/24 pantoprazole 40 mg tablet,delayed 40 mg PO QAM 06/05/20 06/28/24 06/28/24 release gabapentin 300 mg capsule 900 mg PO TID 08/07/20 06/28/24 06/28/24 multivitamin 1 tab PO QAM 08/28/22 06/28/24 06/28/24 psyllium husk (with sugar) 3.4 2 tbsp PO QAM 07/01/23 06/28/24 06/28/24 gram/7 gram oral powder (Metamucil (with sugar)) triamcinolone acetonide 0.1 % 1 applic topical DAILY PRN dry legs 07/01/23 06/28/24 Unknown topical cream acetaminophen 325 mg tablet 650 mg (2 x 325 mg) PO Q4H PRN 07/04/23 06/28/24 Unknown pain #30 tabs albuterol sulfate 2.5 mg/3 mL 2.5 mg (3 mL) inhalation Q6H PRN 07/04/23 06/28/24 Unknown (0.083 %) solution for nebulization Shortness Of Breath #180 mL magnesium 250 mg tablet 250 mg PO HS #30 tabs 07/04/23 06/28/24 06/27/24 guaifenesin 600 mg tablet, 1,200 mg PO Q12 PRN Congestion 10/30/23 06/28/24 Unknown extended release 12 hr (Mucinex) duloxetine 60 mg capsule,delayed 60 mg PO DAILY 03/25/24 06/28/24 Unknown release (Cymbalta) famotidine 40 mg tablet 40 mg PO DAILY 05/06/24 06/28/24 Unknown hydrochlorothiazide 25 mg tablet 25 mg PO DAILY 05/06/24 06/28/24 Unknown lubiprostone 24 mcg capsule 24 mcg PO BID 06/28/24 06/28/24 06/28/24 (Amitiza) pramipexole 0.25 mg tablet 0.25 mg PO TID 06/28/24 06/28/24 06/28/24 urea 10 % topical cream 1 applic topical BID PRN Legs/Feet 06/28/24 06/28/24 Unknown dryness Active Medications Generic Name Dose Route Start Last Admin Trade Name Freq PRN Reason Stop Dose Admin Acetaminophen 650 mg 06/28/24 16:30 06/30/24 22:03 Acetaminophen 325 Mg Tab PO 07/28/24 16:29 650 mg Q4H PRN Administration Fever/Mild Pain (Pain 1-5) Celecoxib 100 mg 06/30/24 21:00 07/01/24 09:13 Celecoxib 100 Mg Cap PO 07/30/24 20:59 100 mg BID CARMEN Administration Duloxetine HCl 60 mg 06/29/24 09:00 07/01/24 09:13 Duloxetine Hcl 60 Mg Cap PO 07/29/24 08:59 60 mg DAILY CARMEN Administration Enoxaparin Sodium 40 mg 06/28/24 21:00 06/29/24 20:40 Enoxaparin Inj 40 Mg/0.4 Ml Syr SQ 07/28/24 20:59 40 mg Q24H CARMEN Administration Famotidine 40 mg 06/29/24 09:00 07/01/24 09:15 Famotidine 40 Mg Tablet PO 07/29/24 08:59 40 mg DAILY CARMEN Administration Gabapentin 900 mg 06/28/24 21:00 07/01/24 09:15 Gabapentin 300 Mg Cap PO 07/28/24 20:59 900 mg TID CARMEN Administration Sodium Chloride 1,000 mls @ 0 mls/hr 07/01/24 13:30 07/01/24 13:37 Nss IV 07/02/24 13:29 15 mls/hr .Q0M CARMEN Administration KVO Insulin Aspart 0 units 06/28/24 16:30 07/01/24 12:29 Insulin Aspart Per Unit Charge SC 07/28/24 16:29 Not Given ACHS CARMEN Insulin Glargine 7 units 06/29/24 09:00 07/01/24 09:17 Lantus Per Unit Charge SQ 07/29/24 08:59 Not Given QAM CARMEN Lubiprostone 24 mcg 06/28/24 21:00 07/01/24 09:15 Lubiprostone 8 Mcg Cap PO 07/28/24 20:59 24 mcg BID CARMEN Administration Magnesium Oxide 400 mg 06/28/24 21:00 06/30/24 22:08 Magnesium Oxide 400 Mg Tab PO 07/28/24 20:59 400 mg HS CARMEN Administration Mupirocin 1 appln 06/30/24 16:15 07/01/24 09:03 Mupirocin 2% Oint 22 Gm Tube EXT 07/30/24 16:14 Not Given DAILY CARMEN Pantoprazole Sodium 40 mg 06/29/24 09:00 07/01/24 09:14 Pantoprazole 40 Mg Tab PO 07/29/24 08:59 40 mg QAM CARMEN Administration Pramipexole Dihydrochloride 0.25 mg 06/28/24 21:00 07/01/24 09:14 Pramipexole Dihydrochlo 0.25 Mg Tab PO 07/28/24 20:59 0.25 mg TID CARMEN Administration NPO Date Last Intake of Fluids: 07/01/24 Time Last Intake of Fluids: 08:00 Last Intake of Fluids Comment: sip with meds Date Last Intake of Solids: 06/30/24 Time Last Intake of Solids: 20:00 Past Medical History Medical History Hx of fall 04/2020>FELL AND HOSPITALIZED FOR COVID/HYPOXIA AND "BROKE MY BACK>SENT TO [facility]. WAS IN A DRUG INDUCED COMA FOR WEEKS/HAD BACK SURGERY". History of COVID-19 04/2020 (HOSPITALIZED IN [facility])>RESOLVED Hx of gout GERD (gastroesophageal reflux disease) Well controlled and stable Restless leg syndrome History of kidney stones Exercise / Class Metabolic Activity III < 4 Walking/Shop/Light housework Past Family History Family History Mother , age 77 of heart issues Osteoporosis Heart disease Cancer Hypertension Brother Diabetes Family history of diabetes mellitus Daughter Cervical cancer Father , Patient age 91 with Parkinson's disease Parkinsons Other No family history of adverse response to anesthesia Denies family history of Ovarian cancer Breast cancer Colorectal cancer Stroke Asthma Past Surgical History Surgical History History of back surgery 4 TOTAL BACK SURGERIES Most recent - T8-L1 Jun 2020 L2-L5 (prior) (04/2020) History of esophagogastroduodenoscopy (EGD) History of colonoscopy History of tooth extraction H/O varicose vein ligation and stripping Saphenous vein History of open reduction and internal fixation (ORIF) procedure RT ANKLE History of section X 3 History of herniorrhaphy 02/21/15 - Repair of incarcerated incisional hernia with Surgimesh 10cm in diameter resection of incarcerated omentum by Dr Knutson History of appendectomy 10/19/12 - laparoscopic by Dr Herrera Past Anesthesia History No Hx of Anesthesia Complications and No Family Hx of Anesthesia Complications History of PONV No Hx of PONV and No Hx of Motion Sickness Social History Smoking Status: Never smoker Do You Dip or Chew Tobacco: No Hx Alcohol Use: No Hx Substance Use: No substance use type: does not use and other Last Used Substance Other:: pain pump RLQ Hydromorphone Physical Exam Vital Signs Last Vital Signs Temp 36.9 C 07/01/24 12:59 Pulse 78 07/01/24 12:59 Resp 20 07/01/24 12:59 BP 169/97 H 07/01/24 12:59 Pulse Ox 97 07/01/24 12:59 O2 Del Method Room Air 07/01/24 12:59 O2 Flow Rate 2 06/29/24 02:45 Constitutional + obese; no acute distress ENMT Mouth: + dentition abnormality and + edentulous Thyromental Distance: < 3.5 Finger Breadths Mallampati Class: II Neck normal visual inspection and trachea midline; neck extension not limited Respiratory normal respiratory effort Auscultation: lungs clear to auscultation bilaterally Cardiovascular Rate/Rhythm: regular rate and regular rhythm Heart Sounds: no murmur Vessels: no carotid bruit Musculoskeletal Spine: normal cervical ROM and no pain with cervical ROM Extremities: extremities normal to inspection; full ROM of extremities Neurologic moves all extremities Motor/Sensory: + sensory deficit Psychiatric Orientation: alert and oriented x 3 Testing Laboratory Results 07/01/24 05:26 07/01/24 05:26 Hemoglobin A1c 7.4 % (4.5-5.6) H 06/29/24 08:16 06/29/24 Unknown Gram Stain - Final Foot Aerobic and Anaerobic Culture - Preliminary Staphylococcus aureus 06/28/24 11:21 Aerobic Blood Culture - Preliminary Blood No growth in Aerobic bottle after 48 hours. Anaerobic Blood Culture - Preliminary No growth in Anaerobic bottle after 48 hours. 06/28/24 11:00 Aerobic Blood Culture - Preliminary Blood No growth in Aerobic bottle after 48 hours. Anaerobic Blood Culture - Preliminary No growth in Anaerobic bottle after 48 hours. 07/01/24 07/01/24 12:03 08:18 POC Glucose 121 H 125 H
[2024-07-01] MEDS: ceFAZolin 2000MG 2,000 MG/15 ML SYR IV SCH (13:50)
[2024-07-01] MEDS ORDERED: ATROPINE SULFATE 0.1 MG/ML 10ML SYR IV PRN (14:03)
[2024-07-01] MEDS ORDERED: ONDANSETRON INJ 2 MG/ML 2 ML VIAL IV PRN (14:03)
[2024-07-01] MEDS ORDERED: fentaNYL citrate PF 100 MCG/2 ML VIAL IV PRN (14:03)
[2024-07-01] MEDS ORDERED: ePHEDrine sulfate 50 MG/ML AMP IV PRN (14:03)
[2024-07-01] MEDS ORDERED: FLUMAZENIL 0.1 MG/1 ML 10 ML VIAL IV PRN (14:03)
[2024-07-01] MEDS ORDERED: PROMETHAZINE HCL 6.25 MG in SODIUM CHLORIDE 0.9% 50 ML IV PRN (14:03)
[2024-07-01] MEDS ORDERED: LABETALOL HCL IV 5 MG/ML 20ML IV PRN (14:03)
[2024-07-01] MEDS ORDERED: NALOXONE HCL 0.4 MG/1 ML VIAL/CARP IV PRN (14:03)
--- NOTE | 2024-07-01 14:03 | Communication Note ---
Date of Service: July 01, 2024 06/28/24-EKG-ST@ 106;RBBB;LAFB 10/31/[id number]-Fhct-PA LV Fxn;EF-55%; No valve issues
[2024-07-01] MEDS: BUPIVACAINE 0.5 % 5 MG/1 ML MPF 30ML VIAL ONE (14:07)
--- NOTE | 2024-07-01 14:15 | Post Operative Brief Note ---
Immediate Post Op Note Date of Surgery July 01, 2024 Pre & Post Diagnosis Operation Date: 07/01/24 13:30 Pre-Op Diagnosis: Left Lower Extremity Infection; Osteomyelitis Post-Op Diagnosis: Left Lower Extremity Infection I identified the patient and participated in the time-out.: Yes Procedure Operation Date: 07/01/24 13:30 Actual Procedures p Left Foot Incisional Wound Debridement(Left) - Lenny Paige DPM Surgeon Lenny Paige DPM Room Service Food Server None Estimated Blood Loss 5 Findings Consistent with Post-Op Diagnosis Specimens Deep soft tissue culture Anesthesia Type MAC Complications none Disposition Accompanied Patient To Recovery: Yes Disposition: Recovery Room
--- NOTE | 2024-07-01 14:35 | Anesthesiology Progress Note ---
Date of Service July 01, 2024 Anesthesia Post Procedure Vital Signs Vital Signs: Temp Pulse Pulse Resp BP BP Pulse Ox 07/01/24 14:25 100 H 13 163/85 H 100 07/01/24 14:16 36.2 C L 93 H 17 146/89 H 98 07/01/24 12:59 36.9 C 78 20 169/97 H 97 07/01/24 11:37 36.5 C 74 18 111/64 97 07/01/24 11:00 07/01/24 08:07 36.4 C L 69 18 147/79 H 94 06/30/24 21:56 36.3 C L 56 L 18 123/71 94 06/30/24 16:00 06/30/24 15:10 36.3 C L 71 16 121/62 92 O2 Del Method O2 Del Method O2 Flow Rate 07/01/24 14:25 Room Air 07/01/24 14:16 Oxymask 10 07/01/24 12:59 Room Air 07/01/24 11:37 Room Air 07/01/24 11:00 Room Air 07/01/24 08:07 Room Air 06/30/24 21:56 Room Air 06/30/24 16:00 Room Air 06/30/24 15:10 Room Air Pain Intensity Left Foot: Pain Intensity: 8 Bilateral Foot: Pain Intensity: 8 Transfer of Care Handoff Completed per policy Notes Mental Status: alert / awake / arousable Patient Amnestic to Procedure: Yes Nausea / Vomiting: adequately controlled Pain: adequately controlled Airway Patency, RR, SpO2: stable & adequate BP & HR: stable & adequate Hydration State: stable & adequate Anesthetic Complications: no major complications apparent
[2024-07-01] MEDS: POLYETHYLENE (MIRALAX) 17 GM PACK PO SCH (17:46)
[2024-07-01] MEDS: DOCUSATE SODIUM/SENNA 50/8.6MG TAB PO SCH (17:46)
--- NOTE | 2024-07-01 17:48 | Hospitalist Progress Note ---
Date of Service July 01, 2024 Assessment & Plan (1) Left leg cellulitis: (2) Chronic ulcer of left foot with fat layer exposed: (3) Hypomagnesemia: (4) Diabetes mellitus, type 2: Plan Rosa is a 74-year-old female with PMH of T2DM, HLD, sleep apnea, DVT, depression, and anxiety. She p/w left leg pain, erythema, and an open draining wound on left foot x 3 weeks. #Left lower extremity cellulitis/PAD-initially though to have possible osteomyelitis of distal 1st MT seen on xray, but MRI foot neg for OM. Arterial Doppler of the LLE without HD significant stenosis-does have mild-mod stenosis of popliteal trifurcation, normal ABIs. No fevers or leukocytosis, no sepsis. Procal neg but lactate high at 5 on admission and down to 3. Feeling significantly improved after several days of IV antibiotics-pain and erythema have improved. Appreciate Podiatry consult-now s/p debridement of foot ulcer on 06/21 and no evidence of OM intraoperatively. Wound cx with MSSA Intraop cultures also taken -discontinue Cefepime and Vanco and start Ancef. Eventually switch to po Augmentin on dc for total 2 weeks -post-op care as per Podiatry-WBAT in post-op shoe and f/u in office -follow CBC, BMP -follow repeat wound cx; Blood cxs NGTD -continue Acetaminophen as needed for pain/fever, and Morphine as needed for breakthrough pain #HTN-BPs controlled to mildly elevated -resume HCTZ #Constipation-chronic. No BM in 6-7 days which is normal for her -continue Amitiza -add on senna/docusate once daily and Miralax once daily #Hypomagnesemia-Magnesium 1.3 on arrival-now replaced and resolved. Could be due to PPI use, HCTZ use -holding home HCTZ -continue po mag oxide #[id number]-StoV6o at 7.4% here, well controlled -Hold metformin, glimepiride -continue Lantus and Novolog while inpt -continue duloxetine, gabapentin for neuropathy pain #Sinus tachycardia-on arrival, now resolved with IVFs and related to acute infection, Troponin WNL Has since transferred off tele #GERD-continue pepcid and PPI #RLS-continue pramipexole DVT proph-resume Lovenox 40 mg SQ q24h Disposition: continued stay on MedSurg, but likely dc to home tomorrow Admission and Anticipated Discharge Date Admission Date: June 28, 2024 Subjective Pt seen right after return from surgery recovery. Feeling a mild headache and a little loopy but overall good. No pain in left leg. No CP, SOB. I discussed her care with Dr. Paige of Podiatry Physical Exam Constitutional: WD/WN, vitals as above Respiratory: normal respiratory effort, lungs clear to auscultation Cardiovascular: Rate/Rhythm: regular rate and regular rhythm Extremities: + edema (trace pitting edema L>R legs) Musculoskeletal: left foot and ankle in MARQUISE wrap, very mild erythema proximal to marquise wrap visible on leg Results & Data Results & Data Vital Signs (Past 12 Hours) Vital Signs Temp Pulse Pulse Resp BP BP Pulse Ox 07/01/24 15:20 36.4 C L 79 18 156/79 H 92 07/01/24 15:20 36.4 C L 79 16 166/79 H 90 07/01/24 15:01 36.6 C 84 16 153/81 H 92 07/01/24 14:58 36.6 C 84 18 153/81 H 95 07/01/24 14:45 36.6 C 94 H 18 163/81 H 92 07/01/24 14:45 36.6 C 94 H 16 163/81 H 92 07/01/24 14:35 36.7 C 92 H 14 154/81 H 93 07/01/24 14:25 100 H 13 163/85 H 100 07/01/24 14:16 36.2 C L 93 H 17 146/89 H 98 07/01/24 12:59 36.9 C 78 20 169/97 H 97 07/01/24 11:37 36.5 C 74 18 111/64 97 07/01/24 11:00 07/01/24 08:07 36.4 C L 69 18 147/79 H 94 O2 Del Method O2 Del Method O2 Flow Rate 07/01/24 15:20 Room Air 07/01/24 15:20 Room Air 07/01/24 15:01 Room Air 07/01/24 14:58 Room Air 07/01/24 14:45 Room Air 07/01/24 14:45 Room Air 07/01/24 14:35 Room Air 07/01/24 14:25 Room Air 07/01/24 14:16 Oxymask 10 07/01/24 12:59 Room Air 07/01/24 11:37 Room Air 07/01/24 11:00 Room Air 07/01/24 08:07 Room Air Laboratory Results CBC, BMP, mag , wound cx reviewed PG Care Time/CCT Total # of Minutes Spent Total Time Spent with Patient: Total time spent is greater than 50% in coordination of care (as documented) at patient's floor/unit and/or counseling patient: Coding Level of Care Code 77516 SUB INP/OBS CARE 235MIN Diagnoses Left leg cellulitis L03.116 Chronic ulcer of left foot with fat layer exposed L97.522 Hypomagnesemia E83.42 Diabetes mellitus, type 2 E11.9
[2024-07-02 06:52] LABS: Hematocrit (blood only) 33.4 % (37.0-47.0); Mean Corpuscular Hemoglobin 29.7 pg (25.0-34.0); Mean Corpuscular Hgb Conc 32.9 g/dL (32.0-36.0); Mean Corpuscular Volume 90.3 fL (80.0-100.0); Mean Platelet Volume 9.6 fL (9.4-12.4); Platelet Count 266 K/uL (130-400); RDW Coefficient of Variation 14.6 % (11.5-14.5); RDW Standard Deviation 47.6 fL (36.4-46.3); White Blood Count 6.83 K/ul (4.8-10.8)
[2024-07-02 07:17] LABS: BUN Creatinine Ratio 25.4 (10-20); C Reactive Protein 1.17 mg/dl (0-0.5); Calcium 9.3 mg/dl (8.6-10.3); Creatinine Clr Calc Pharmacy 80.5 ml/min; Magnesium 1.7 mg/dl (1.7-2.4); Potassium 3.8 mmol/L (3.5-5.1)
[2024-07-02 07:26] LABS: Acanthocytes 1+; Basophils # (auto) 0.01 K/uL (0.00-0.20); Basophils % (auto) 0.1 %; Immature Granulocytes # (auto) 0.03 K/uL (0.01-0.20); Immature Granulocytes % (auto) 0.4 %; Lymphocytes # (auto) 1.98 K/uL (1.20-3.40); Monocytes # (auto) 0.37 K/uL (0.11-0.59); Monocytes % (auto) 5.4 %; Neutrophils # (auto) 4.44 K/uL (1.40-6.50); Neutrophils % (auto) 65.1 %; Ovalocytes 1+; Polychromasia 1+
[2024-07-02 07:35] VITALS: RESP 18; TEMP 98.1; O2SAT 96
[2024-07-02] MEDS: PSYLLIUM or GUAR GUM FIBER 4GM PACKET PO SCH (09:11)
[2024-07-02] MEDS: hydroCHLOROthiazide 25 MG TAB PO SCH (09:15)
--- NOTE | 2024-07-02 12:27 | Discharge Summary ---
Discharge Summary Date of Service July 02, 2024 Principal Dx & Hospital Course #1 = Principal Diagnosis (1) Left leg cellulitis: (2) Chronic ulcer of left foot with fat layer exposed: (3) Hypomagnesemia: (4) Diabetes mellitus, type 2: Kailey Lee is a 74-year-old female with PMH of T2DM, HLD, sleep apnea, DVT, depression, and anxiety. She p/w left leg pain, erythema, and an open draining wound on left foot x 3 weeks. #Left lower extremity cellulitis/PAD-initially though to have possible osteomyelitis of distal 1st MT seen on xray, but MRI foot neg for OM. Arterial Doppler of the LLE without HD significant stenosis-does have mild-mod stenosis of popliteal trifurcation, normal ABIs. No fevers or leukocytosis, no sepsis. Procal neg but lactate high at 5 on admission and down to 3. Feeling significantly improved after several days of IV antibiotics-pain and erythema have improved. Appreciate Podiatry consult-now s/p debridement of foot ulcer on 06/21 and no evidence of OM intraoperatively. Wound cx with MSSA Intraop cultures also taken and still pending at time of discharge Doing well, no pain in leg or foot anymore, remains afebrile since day of admission, no leukocytosis -received Cefepime and Vanco and ten switched to IV Ancef. Will switch to po Augmentin on dc for total 2 weeks of therapy -post-op care as per Podiatry-WBAT in post-op shoe and f/u in office next week -follow repeat wound cx; Blood cxs NGTD -keep leg elevated for edema when possible -consider starting ASA and statin for PAD as outpt-defer to PCP #HTN-BPs controlled -continue HCTZ #Constipation-chronic. No BM in 6-7 days which is normal for her -continue Amitiza nad Metamucil -added on senna/docusate once daily and Miralax once daily and continue these on discharge #Hypomagnesemia-Magnesium 1.3 on arrival-now replaced and resolved. Could be due to PPI use, HCTZ use -held home HCTZ and then resumed due to LE edema -continue po mag oxide -follow as outpt and consider stopping PPI #[id number] at 7.4% here, well controlled -resume home metformin, glimepiride on discharge. Received Lantus low doses and Novolog while admitted -continue duloxetine, gabapentin for neuropathy pain #Sinus tachycardia-on arrival, now resolved with IVFs and related to acute infection, Troponin WNL Has since transferred off tele nad with normal HRs #GERD-continue pepcid and PPI but consider stopping PPI due ot low mag-defer to PCP #RLS-continue pramipexole #Right shoulder pain-chronic, with OA, has had previous steroid injections, wants to avoid should er surgery. Started Celebrex with significant improvement -continue Celebrex on discharge -f/u with Ortho as needed DVT proph-Lovenox 40 mg SQ q24h Disposition: dc to home today Notes For Next Care Provider Consider tx for PAD with ASA, statin-defer to PCP Consider stopping PPI for hypomagnesemia and monitor for worsening GERD symptoms as outpt Medication Changes From Visit Added Augmentin 875/125mg po bid x 10 more days Added senna/docusate, Miralax daily Added Celebrex 100mg po bid for shoulder arthritis Admission HPI Per Admitting Provider Rosa is a 74-year-old female with PMH of T2DM, HLD, sleep apnea, DVT, depression, and anxiety. She presented on 06/28 for worsening bilateral foot pain, and left foot infectionsx 3 weeks. Pain is worse in her left foot, and she developed sharp/stabbing pain going up her left leg over the past week. The pain is so severe, that she is unable to bear weight on them. She characterized the pain as constant, and rates the pain 8/10 after receiving pain medicine in the ED; 10/10 at worst. Radiates up to the "top" of her left leg. She denies any purulent drainage. No prior history of MRSA infections to her knowledge. She does have a history of a DVT 43 years ago, but is not currently on anticoagulation. Patient does take Plavix daily for history of TIAs. Patient took her regular morning medicines today; no recent change in medicine. She manages her own medicine at home. She is been taking Tylenol at home for the pain, but reports this has not been helping. Patient lives at home with her . She does use a cane as needed to ambulate. Denies any recent falls or injuries to her legs. She denies any hardware in her left leg (no knee or hip replacements), but does report history of hardware in her right ankle. Despite having HERIBERTO, patient denies CPAP at night, or supplemental oxygen at baseline. Patient denies smoking, tobacco use, recent alcohol use. Patient is tachycardic at 105 bpm at time of admission; SpO2 97% on 3L NC. ED course: Vancomycin 1750 mg IV Rocephin 2000 mg IV NSS 1000 mL IV Zofran 4 mg IV Morphine 4 mg IV ROS: Patient endorses bilateral foot pain, stabbing pain going up her left leg, lightheadedness with movements, headache, cold intolerance, nausea, and chronic neuropathy in the legs. Patient denies fever, chills, night-sweats, falls, syncope, chest pain, SOB, cough, pleuritic CP, abdominal pain, vomiting, diarrhea, burning with urination, or blood in the urine/stool. Discharge Exam Constitutional WD/WN, vitals as above Respiratory normal respiratory effort, lungs clear to auscultation Cardiovascular Rate/Rhythm: regular rate and regular rhythm Extremities: + edema (trace pitting edema L leg) Musculoskeletal left foot and ankle in dressing and MARQUISE wrap not removed Skin + erythema (very mild of left foot and leg to mid tibia) Psychiatric A+Ox3, euthymic affect Discharge Plan Discharge Items Patient Disposition: Home - Self-Care Reason For Visit: LLE INFECTION; CELLULITIS VS OSTEO Discharge Diagnosis: Left foot and leg ulcer and cellulitis Activity: As commented below Bathing: Keep incision dry Exercise/Sports: Gradually increase as tolerated Weightbearing: Left weightbearing Weightbearing Comment: weight bearing as tolerated with post-op shoe on Non-emergency contact: Primary Care Provider and Surgeon Call non-emergency contact if: you have any medication questions, your symptoms worsen, your pain is not controlled, your temperature is above 101, your wound has increased redness, your wound has increased drainage and your wound pain has increased Follow-up/Referrals: Lenny Paige DPM [Physician] - 07/07/24 11:30 am () Tsering Casper MD [Primary Care Provider] - (Follow up within 1-2 weeks) Diet: Carb Consistent or DM2 Addtl Attending Provider Instructions: Please finish out the oral antibiotic called Augmentin twice a day for 10 more days. Please keep your dressing on and keep it clean and dry until you see Dr. Paige next week in his office. Try to keep your leg elevated when sitting to keep the swelling down. If you develop worsening redness, pain of the leg or fevers/chills, please return to the hospital. You were started on Celebrex twice a day for your shoulder arthritis pain. A prescription was called in for you to your pharmacy. Pending Studies at Discharge: Yes (Repeat wound cultures) Stand-Alone Forms: My [facility], Smoking Cessation Medications and DC Order Prescriptions: New celecoxib [Celebrex] 100 mg Capsule 100 mg PO BID Qty: 60 0RF polyethylene glycol 3350 [Miralax] 17 gram Powder In Packet 17 g PO DAILY Qty: 30 0RF Rx Instructions: OTC amoxicillin-pot clavulanate 875-125 mg tablet 1 tab PO BID Qty: 20 0RF sennosides-docusate sodium [Senokot-S] 8.6-50 mg Tablet 1 tab PO QAM Qty: 30 0RF Rx Instructions: OTC Continued duloxetine [Cymbalta] 60 mg capsule,delayed release(DR/EC) 60 mg PO DAILY famotidine 40 mg tablet 40 mg PO DAILY hydrochlorothiazide 25 mg tablet 25 mg PO DAILY albuterol sulfate 90 mcg/actuation HFA aerosol inhaler 2 puffs INH Q4H PRN (Reason: shortness of breath or wheezing) Rx Instructions: Inhale 2 puffs every 4 hours as needed metformin 1,000 mg tablet 1,000 mg PO BID glipizide 2.5 mg tablet extended release 24hr 2.5 mg PO BID pantoprazole 40 mg tablet,delayed release (DR/EC) 40 mg PO QAM gabapentin 300 mg capsule 900 mg PO TID Patient Comments: TAKES 3 TAB TID Metamucil (with sugar) 3.4 gram/7 gram Powder 2 tbsp PO QAM triamcinolone acetonide 0.1 % cream 1 applic TOPICAL DAILY PRN (Reason: dry legs) acetaminophen 325 mg Tablet 650 mg PO Q4H PRN (Reason: pain) Qty: 30 0RF albuterol sulfate 2.5 mg /3 mL (0.083 %) solution for nebulization 2.5 mg inhalation Q6H PRN (Reason: Shortness Of Breath) Qty: 180 0RF magnesium 250 mg tablet 250 mg PO HS Qty: 30 0RF multivitamin Tablet 1 tab PO QAM guaifenesin [Mucinex] 600 mg tablet extended release 12hr 1,200 mg PO Q12 PRN (Reason: Congestion) urea 10 % Cream 1 applic TOPICAL BID PRN (Reason: Legs/Feet dryness) pramipexole 0.25 mg Tablet 0.25 mg PO TID lubiprostone [Amitiza] 24 mcg Capsule 24 mcg PO BID Discharge Orders: Discharge Order (Routine); Ordered 07/02/24 Ordered By: Jessica Leonard Admission Data Admit Date/Time: 06/28/24 13:43 Attending Provider: Jessica Leonard Admit Provider: Gavino Meeks Primary Care Provider: Tsering Casper Other Providers: Gavino Meeks; Lenny Paige Hospital Stay Data Consultations 06/28/24 13:22 ED Decision to Admit Stat 06/28/24 14:42 Consult Podiatry Routine Procedures Performed Operation Date: 07/01/24 13:30 Actual Procedures p Left Foot Incisional Wound Debridement(Left) - Lenny Paige DPM Diagnostic Imagining Performed 06/28/24 13:00 US arterial duplex LE LT Stat 06/30/24 08:46 MR foot LT w/o con Urgent Pending Results Patient Have Any Pending Studies at Discharge: Yes (Repeat wound cultures) Discharge Instructions Given to Patient (Per Discharging Provider) Please finish out the oral antibiotic called Augmentin twice a day for 10 more days. Please keep your dressing on and keep it clean and dry until you see Dr. Paige next week in his office. Try to keep your leg elevated when sitting to keep the swelling down. If you develop worsening redness, pain of the leg or fevers/chills, please return to the hospital. You were started on Celebrex twice a day for your shoulder arthritis pain. A prescription was called in for you to your pharmacy. Total Time Total Time Spent Total Time Spent (In Minutes): 35 min Total Time Includes: Examination of the Patient, Discharge Planning, Medication Reconciliation and Communication With Other Providers (Podiatry) Coding Level of Care Code 01179 INP/OBS DISCH >30 MIN Diagnoses Left leg cellulitis L03.116 Chronic ulcer of left foot with fat layer exposed L97.522 Hypomagnesemia E83.42 Diabetes mellitus, type 2 E11.9
[2024-07-02] MEDS: FLUCONAZOLE 50 MG TAB PO ONE (13:18)
[2024-07-02 13:50] VITALS: BP 153/81; PULSE 79
--- NOTE | 2024-07-19 17:03 | Operative Report ---
Post Operative Report Pre & Post Diagnosis Operation Date: 07/01/24 13:30 Pre-Op Diagnosis: Left Lower Extremity Infection; Osteomyelitis Post-Op Diagnosis: Left Lower Extremity Infection; Osteomyelitis I identified the patient and participated in the time-out.: Yes Procedure Operation Date: 07/01/24 13:30 Actual Procedures p Left Foot Excisional Wound Debridement(Left) - Lenny Paige DPM Surgeon Lenny Paige DPM Fitter Type Bar And Segment None Estimated Blood Loss 5 Findings Consistent with Post-Op Diagnosis no deeper bone involvement was suspected. Wound was relatively superficial with no proximal extension or evidence of infection Specimens deep cultures were obtained intraoperatively. Anesthesia Type MAC Complications none Disposition Accompanied Patient To Recovery: Yes Disposition: Recovery Room Indications this patient is a recent hospital consult of ours who developed a nonhealing plantar foot ulceration underlying the first metatarsal. This is concerning given the local cellulitis in the depth on clinical exam at bedside. We discussed she would benefit from a more aggressive surgical debridement even the potential for underlying osteomyelitis. Preoperative instructions, postoperative instructions, relative risks, and outcomes were all discussed at length. Consent was obtained for this procedure. All questions were answered. Description of Procedure patient was brought to the operating room and left on her hospital bed for the duration of this procedure. The left lower extremity was scrubbed, prepped, and draped in the usual aseptic manner. No tourniquet was utilized during the duration of this case given the patient's relatively avascular state. Local analgesia was obtained utilizing 20 cc of half percent Marcaine plain in a local block fashion. Attention was directed to the left plantar first metatarsal where a nonhealing ulceration was noted. This measured 1.8 cm in length and 0.3 cm in width. After debridement, it did extend to 0.87 m in depth,, though not to any underlying bone or the sesamoid apparatus. All necrotic, nonviable tissue was excised, though this was minimal. There was no evidence of purulent drainage or clinically infected tissue. Deep tissue culture was excised to be sent for further testing. No bone specimen was obtained given the clinical absence of osteomyelitis. This was flushed with copious nonsterile saline closure was attempted utilizing 2-0 nylon in a retention stitch fashion. The incision was dressed with Xeroform gauze, 4 x 4 gauze, Kerlix, and Elias wrap. The patient tolerated the procedure well was transferred to the room vital signs stable and vascular status intact to the feet. Following postoperative monitoring, the patient was given instructions to transferred back to the floor for further monitoring and likely discharge in the next day or 2. I attest to the content of the Intraoperative Record and any orders documented therein. Any exceptions are noted below.
== END 2024-07-02 14:26 | disposition home or self-care (01) | DRG 571 ==
LOC: ED 10:00 → SUATTDRO 13:43 → 2N 13:43

== ENCOUNTER 2024-11-14 15:15 | Observation (INO) ==
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
[2024-11-14 16:06] LABS: Basophils # (auto) 0.03 K/uL (0.00-0.20); Basophils % (auto) 0.2 %; Eosinophils # (auto) 0.05 K/uL (0.00-0.50); Eosinophils % (auto) 0.4 %; Hematocrit (blood only) 34.9 % (37.0-47.0); Hemoglobin 11.3 g/dl (12.0-16.0); Immature Granulocytes # (auto) 0.05 K/uL (0.01-0.20); Immature Granulocytes % (auto) 0.4 %; Lymphocytes # (auto) 2.88 K/uL (1.20-3.40); Mean Corpuscular Hemoglobin 28.2 pg (25.0-34.0); Mean Corpuscular Hgb Conc 32.4 g/dL (32.0-36.0); Mean Platelet Volume 9.8 fL (9.4-12.4); Monocytes # (auto) 0.84 K/uL (0.11-0.59); Monocytes % (auto) 6.4 %; Neutrophils # (auto) 9.22 K/uL (1.40-6.50); Neutrophils % (auto) 70.6 %; Platelet Count 310 K/uL (130-400); RDW Coefficient of Variation 15.4 % (11.5-14.5); RDW Standard Deviation 49.2 fL (36.4-46.3); Red Blood Count 4.01 M/uL (4.20-5.40); White Blood Count 13.07 K/ul (4.8-10.8)
[2024-11-14 16:24] LABS: Albumin Globulin Ratio 1.2 (0.9-2); Albumin Level 3.9 gm/dl (3.4-5.0); BUN Creatinine Ratio 23.4 (10-20); Bilirubin,Total 0.5 mg/dl (0.2-1.0); Calcium 9.2 mg/dl (8.6-10.3); Globulin 3.2 gm/dl (2.5-4.0); Magnesium 1.3 mg/dl (1.7-2.4); Potassium 3.6 mmol/L (3.5-5.1); Total Protein 7.1 gm/dl (6.0-8.3)
[2024-11-14 16:29] LABS: Troponin I High Sensitivity 4.1 pg/ml (0-14)
[2024-11-14 16:41] LABS: Prothrombin Time 10.9 Seconds (9.0-12.0)
--- NOTE | 2024-11-14 17:04 | XRay Report ---
EXAM: XR chest 1V portable CLINICAL HISTORY: weak, pna. TECHNIQUE: An X-ray image of the chest is obtained in AP projection. COMPARISON: 09/08/2023. FINDINGS: Pulmonary Parenchyma: Expiratory film. Exaggerated basal bronchovascular markings- Stable No evidence of consolidation, collapse, or focal opacities. No pulmonary nodules are identified. No evidence of pleural effusion or pleural thickening. Heart and Mediastinum: Heart size and shape are normal. No mediastinal widening or masses. No hilar or mediastinal lymphadenopathy. Bony Thorax: Evidence of previous spinal fixation and scoliosis- Stable. Soft Tissues: Soft tissues overlying the chest wall are unremarkable. IMPRESSION: 1. No pneumonia or acute cardiopulmonary abnormalities are identified. 2. No significant interval changes. Electronically signed by Danny Dodson 11-14-2024 5:03 PM
[2024-11-14] MEDS: OPTIRAY 320 100ml IV ONE (17:15)
[2024-11-14] MEDS: MAGNESIUM SULFATE / D5W 1 GM/100 ML BAG IV SCH (17:23)
[2024-11-14 17:33] LABS: Influenza A virus by PCR Negative (Neg); Influenza B virus by PCR Negative (Neg); RSV by PCR Negative (Neg); SARS CoV2 RNA(COVID-19) Ceph NEGATIVE (Negative)
--- NOTE | 2024-11-14 19:03 | CT Scan Report ---
EXAM: CT angio chest PE protocol CLINICAL HISTORY: PE, sob TECHNIQUE: CT angiography of the chest was performed with and without intravenous contrast with the following protocol: axial images with reconstructed coronal and sagittal images. Non-contrast images were initially acquired, followed by contrast-enhanced images in arterial and venous phases. 90 ml Optiray 320 Intravenous contrast was administered using automated injection techniques. Bolus tracking was employed to optimize arterial phase imaging. One of these 3D techniques was utilized: Maximum Intensity Pixel (MIP), 3D Reconstructed Images, Volume Rendered Images, Surface Shaded Rendering. One of the following dose reduction techniques was utilized for this exam. Automated exposure control, adjustment of the mA and/or kV according to patient size, and use of iterative reconstruction. COMPARISON: 10/30/2023. FINDINGS: Poor respiratory control and motion artifact by the patient results in the distortion of the images Aorta and Great Vessels: Ascending Aorta: Normal in caliber, no aneurysm, dissection, or significant atherosclerosis. Aortic Arch: Normal in caliber, no aneurysm, dissection, or significant atherosclerosis. Descending Aorta: Normal in caliber, no aneurysm, dissection, or significant atherosclerosis. Pulmonary Arteries: Improper bolus timing; however, no definite thrombus is seen in the main branches. If clinically concerned, repeat the exam with a proper acquisition time is advised The main pulmonary artery and its branches are patent. No evidence of pulmonary embolism or significant stenosis. Heart: Cardiac Chambers: Normal in size. No evidence of cardiomegaly. Pericardium: No pericardial effusion or thickening. Lungs and Pleura: small patchy bilateral upper lung lobes, centrilobular nodular ground glass opacities noted of likely acute infection. Lungs are clear without evidence of consolidation, collapse, or focal lesions. No pleural effusion or pleural thickening. Mediastinum: No mediastinal mass or abnormal lymphadenopathy. Normal appearance of the trachea and central bronchi. Hilar Structures: Retrocaval enlarged lymph node noted. Hilar structures are normal without enlargement. Chest Wall: No mass lesions or abnormalities in the chest wall. Vascular Structures: Superior Vena Cava: Patent without evidence of stenosis or thrombus. Inferior Vena Cava: Patent without evidence of stenosis or thrombus. Bones and Soft Tissues: stable post-operative changes related to thoracic spine fixation, with vertebral body compression noted. Moderate spondylosis of the thoracic spine noted .. No fractures, lytic, or blastic lesions of the visualized bony structures. Soft tissues are unremarkable. IMPRESSION: 1. Improper bolus timing, however, no definite thrombus is seen in the main branches. If clinically concerned, repeat the exam with a proper acquisition time is advised 2. Small patchy bilateral upper lung lobes, centrilobular nodular ground glass opacities noted, of likely acute infection. 3. Prior exam shows there is no evidence of pulmonary embolism. Large consolidation in the left lower lobe is not seen in the current exam Electronically signed by Danny Dodson 11-14-2024 7:02 PM
[2024-11-14] MEDS: cefTRIAXone SODIUM 2,000 MG/50 ML BAG IV STA (19:39)
[2024-11-14 19:40] LABS: Appearance Urine Clear (Clear); Bilirubin Urine Negative (Negative); Blood Urine Negative (Negative); Color Urine Yellow; Glucose Urine UA Negative (Negative); Ketones Urine Negative (Negative); Leukocyte Esterase Urine Negative (Negative); Nitrite Urine Negative (Negative); Protein Urine Negative (Negative); Specific Gravity Urine 1.027 (1.000-1.030); Urobilinogen Urine Negative (Negative)
--- NOTE | 2024-11-14 19:56 | History & Physical Report ---
Date of Service November 14, 2024 Assessment & Plan (1) Hypoxia: (2) Pneumonia: (3) Hypomagnesemia: (4) Diabetes mellitus, type 2: Plan 74-year-old female PMHx T2DM, HLD, sleep apnea, prior DVT, depression, and anxiety presenting for productive cough with associated chills and fever x 6 days. ED evaluation reveals leukocytosis 13.07, H&H 11.3/34.9; PT/INR WNL; CMP glucose 177, BUN/creatinine ratio 23.4, magnesium 1.3; COVID/flu/RSV negative; CXR no pneumonia or acute cardiopulmonary findings; chest CTA with improper bolus timing, but no definite thrombus seen in main branches, small patchy bilateral upper lung lobes centrilobular nodular groundglass opacities of likely acute infection; EKG NSR, RBBB, LAFB at 92 bpm.; Patient was provided with mag sulfate 2 g IV and ceftriaxone 2 g IV in ED. #Acute hypoxia/PNA Presenting with "cold symptoms" x 6 days, worsening wheezing and some sputum production. Recent surgical intervention 11/11/2024 on LLE; Was seen in ED 11/09/2024 for RLE edema, negative for DVT so started on Keflex x 5 days which she has completed; No vomiting or noted choking events, no difficulties swallowing. Symptoms started prior to most recent surgical intervention. Hypoxic on RA ~ 1840 in ED, 88-89% and placed on RA. Received Ceftriaxone 2g IV in ED. CURB 65 score of 1 however was hypoxic in ED and continued wheezing with conversational dyspnea. Admission required given hypoxia on RA. - CBC leukocytosis 13.7; Pro-Julien pending; lactate pending - CBC am - COVID/flu/RSV swab negative - Sputum culture pending - CXR no pneumonia or acute cardiopulmonary findings - Chest CTA improper bolus timing but no definite thrombus seen in the main branches, does reveal small patchy BUL centrilobular nodule groundglass opacities have likely acute infection - Incentive spirometry - DuoNebs rodger q4h + prn wheezing/SOB - O2 via NC; No O2 at home - wean as patient tolerates - On outpatient doxy 100 mg po BID - continue doxy po + start ceftriaxone 2g IV #Hypomagnesemia History of per prior admissions. No current symptoms. Currently on pantoprazole and HCTZ, could be contributing to recurrence. Does take magnesium at night to sleep. - Mg 1.3 - Mg am - MgSO4 2g IV given in ED; Start MgOxide 400mg po BID on 11/15/2024 #T2DM H/o DMT2; at home regimen includes glipizide twice daily and metformin twice daily. Complication neuropathy with nonhealing diabetic ulceration of subfirst metatarsal head on L foot requiring offloading/wound debridement/abx therapy. 11/11/2024 underwent tibial sesamoidectomy of L foot and debridement of diabetic ulceration subfirst metatarsal head on L foot. Currently on doxycycline for such. Gabapentin at baseline for neuropathy. - Most recent A1C 10/2024 @ 7.3%; Glucose on admission 177 - Hold po meds for glucose management; continue gabapentin for neuropathy - SSI with target BSG range 110-140mg/dL, CF 30, carb ratio 10 - BSG ACHS - Pharm glycemic management consult placed, appreciate assistance - adjust regimen as needed #HTN- HCTZ - continue #GERD- Famotidine, pantoprazole - continue #Pain- Celebrex, Endocet - PDMP independently reviewed at admission - continue #Carotid stenosis- Identified 05/2024 on neck CTA; Plavix - continue #Depression/anxiety- Duloxetine - continue #H/o DVT- Early 1980s 2/2 traumatic injury; Recent RLE doppler on 11/09/2024 without evidence of DVT but with some LE edema and popliteal cyst noted Dispo: Admit, med/tele VTE Prophylaxis: Lovenox This document was dictated utilizing [employer]. Please excuse any grammatical errors that may be secondary to use of this software. Admission and Anticipated Discharge Date Admission Date: 11/14/2024 History of Present Illness Chief Complaint: Cough Primary Care Provider: Tsering Casper MD 74-year-old female PMHx T2DM, HLD, sleep apnea, prior DVT, depression, and anxiety presenting for productive cough with associated chills and fever x 6 days. Was initially evaluated in the ER 11/09/2024 for calf swelling which noted negative DVT and she was started on Keflex for 5 days which she completed day of arrival. She then had outpatient surgery on her L foot 3 days COOK PRESSURE (11/11/2024). She is currently on doxycycline following this. States that over the past week she has felt that she had "cold" symptoms. States that she has been wheezing for days, which was at its worst 11/10/2024, but she did not want to miss her surgery so she tried not to make a big deal out of it. States that since being on some antibiotics, she feels that her wheezing is slightly better, but her daughter feels that it has been worse. The patient has been feeling more weak than normal, she states that she has had a big drop in energy since 5 days COOK PRESSURE. Does not feel that she has shortness of breath, and states that whenever she takes her O2 sats at home they range around 95%. She does occasionally have a cough that is mostly nonproductive, but when she would do her nebulizer treatment, she does have a productive cough with yellow sputum. She has an albuterol nebulizer because she is prone to getting pneumonia per her report. She has felt slightly feverish but has not taken her temperature. No chills. She states that 2 days COOK PRESSURE she was "confused because I was overmedicated/overdid it." States that she had taken both of her antibiotics and half of the pain medication and states that she felt a little foggy at that time. Believe that she had seen a mouse in the house, but states that looking back at now she does not think that was real. She has not been around any sick contacts. No orthopnea or lower extremity swelling. Does have some nausea, without vomiting. No dizziness or lightheadedness. Overall denying chest pain, palpitations, abdominal pain, V/D/C, numbness/tingling, chills, LUTS, tinnitus, syncope, lightheadedness, or LOC. She has been taking her medications as prescribed. Took her Keflex for 5 days (started on 11/09/2024). Her doxycycline is to be continued for total duration of 15 days which she started on 11/05/2024. ED evaluation reveals leukocytosis 13.07, H&H 11.3/34.9; PT/INR WNL; CMP glucose 177, BUN/creatinine ratio 23.4, magnesium 1.3; COVID/flu/RSV negative; CXR no pneumonia or acute cardiopulmonary findings; chest CTA with improper bolus timing, but no definite thrombus seen in main branches, small patchy bilateral upper lung lobes centrilobular nodular groundglass opacities of likely acute infection; EKG NSR, RBBB, LAFB at 92 bpm.; Patient was provided with mag sulfate 2 g IV and ceftriaxone 2 g IV in ED. Please see Dr. Meeks's attestation for adjustments/additions to treatment plan. Allergies Allergy/AdvReac Type Severity Reaction Status Date / Time cefuroxime AdvReac Intermediate upset Verified 11/14/24 18:04 stomach prochlorperazine AdvReac Intermediate Confusion Verified 11/14/24 18:04 [From Compazine] Home Medications Medication Instructions Recorded Confirmed Type glipizide 2.5 mg tablet, extended 2.5 mg PO BID 06/05/20 11/14/24 History release 24 hr metformin 1,000 mg tablet 1,000 mg PO BID 06/05/20 11/14/24 History pantoprazole 40 mg tablet,delayed 40 mg PO QAM 06/05/20 11/14/24 History release gabapentin 300 mg capsule 900 mg PO TID 08/07/20 11/14/24 History multivitamin 1 tab PO QAM 08/28/22 11/14/24 History triamcinolone acetonide 0.1 % 1 applic topical DAILY PRN dry legs 07/01/23 11/14/24 History topical cream acetaminophen 325 mg tablet 650 mg (2 x 325 mg) PO Q4H PRN 07/04/23 11/14/24 Rx pain #30 tabs magnesium 250 mg tablet 250 mg PO HS #30 tabs 07/04/23 11/14/24 Rx guaifenesin 600 mg tablet, 1,200 mg PO Q12 PRN Congestion 10/30/23 11/14/24 History extended release 12 hr (Mucinex) duloxetine 60 mg capsule,delayed 60 mg PO QAM 03/25/24 11/14/24 History release (Cymbalta) famotidine 40 mg tablet 40 mg PO QPM 05/06/24 11/14/24 History hydrochlorothiazide 25 mg tablet 25 mg PO QAM 05/06/24 11/14/24 History celecoxib 100 mg capsule (Celebrex) 100 mg PO QAM 07/21/24 11/14/24 History clopidogrel 75 mg tablet (Plavix) 75 mg PO QAM 07/21/24 11/14/24 History vitamin B complex 1 cap PO DAILY 11/08/24 11/14/24 History oxycodone-acetaminophen 5 mg-325 1 tab PO Q6H PRN pain #20 tabs 11/11/24 11/14/24 Rx mg tablet (Endocet) ipratropium 0.5 mg-albuterol 3 mg 3 ml NEB Q4R PRN shortness of 11/15/24 Rx (2.5 mg base)/3 mL nebulization breath #90 mL soln linezolid 600 mg tablet 600 mg PO BID #10 tabs 11/15/24 Rx prednisone 10 mg tablet See Taper PO DIRECTED #30 tabs 11/15/24 Rx Past Med/Surg History Problem List Hypoxia (Acute) Pneumonia (Acute) Post-op pain Pain and swelling of right lower leg (Acute) Chronic ulcer of left foot with fat layer exposed Diabetic foot ulcer (Acute) HERIBERTO (obstructive sleep apnea) Insomnia Carotid stenosis Basilar artery stenosis Cerebrovascular disease (Acute) Elevated troponin I level (Acute) Carpal tunnel syndrome on right Hypomagnesemia (Acute) Implantable intrathecal infusion pump present containing hydromorphone Claudication of lower extremity Peripheral edema Intermittent (no issues at PAT appt 08/28/22) Laryngopharyngeal reflux (LPR) Chronic laryngitis Rotator cuff arthropathy of right shoulder Therapeutic opioid-induced constipation (OIC) Adhesive capsulitis of right shoulder Arthritis of shoulder region, right Lactic acidosis (Acute) Lumbosacral radiculopathy Chronic SI joint pain Left lumbar radiculopathy (Acute) Frequent falls Ambulatory dysfunction Morbid obesity with BMI of 40.0-44.9, adult Elevated CK Hypoxemia (Acute) Lumbar postlaminectomy syndrome (Chronic) Restless leg syndrome Fracture of transverse process of thoracic vertebra (Acute) Weakness of lower extremity (Chronic) Surgical wound, non healing (Acute) Encounter for pre-operative examination Degenerative disc disease (Chronic) Sleep apnea (Chronic) NO DEVICE USED Hypertension (Chronic) Panic disorder (Chronic) 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) Major depressive disorder (Chronic) Generalized anxiety disorder (Chronic) Intractable neuropathic pain of lower extremity (Chronic) Intractable low back pain (Chronic) Depressive disorder (Chronic) 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) Lumbar spondylosis (Chronic) Lumbar spinal stenosis (Chronic) Hyperlipidemia (Chronic) Fatty liver (Chronic) Diabetic peripheral neuropathy associated with type 2 diabetes mellitus (Chronic) Diabetes (Acute) Medical History Chronic SI joint pain Cerebrovascular disease Basilar artery stenosis Hx of respiratory failure (10/2023) Ambulatory dysfunction uses walker Wheezing History of DVT (deep vein thrombosis) Early (was hit by a board/bat to leg and developed clot) Diabetic peripheral neuropathy Hyperlipidemia Fatty liver Diabetes mellitus, type 2 Lumbar spinal stenosis Anxiety and depression Hypertension Degenerative disc disease Walker as ambulation aid Implantable intrathecal infusion pump present Containing hydromorphone Diarrhea History of pneumonia PNA annually (no current/recent dx) Reason for albuterol neb + inhaler PRN per patient Sleep apnea No device Chronic ulcer of left foot Follows with [place] [facility] Carotid stenosis Neck CTA 05/2024: The carotid arteries are without hemodynamically significant stenosis although there is again noted to be approximately 60% stenosis of the internal carotid artery on the left. Reason for Plavix per patient History of COVID-19 (04/2020) [facility] hospitalization, "resolved" Hx of gout GERD (gastroesophageal reflux disease) Restless leg syndrome History of kidney stones Surgical History Status post insertion of intrathecal pump (09/03/22) History of incision and drainage (07/01/24) Left foot wound debridement, [facility] History of back surgery 4 back surgeries total, most recent 2020 History of esophagogastroduodenoscopy (EGD) History of colonoscopy (07/28/24) [facility] History of tooth extraction H/O varicose vein ligation and stripping Saphenous vein History of open reduction and internal fixation (ORIF) procedure Right ankle History of section x3 History of herniorrhaphy Repair of incarcerated incisional hernia with Surgimesh 10cm in diameter resection of incarcerated omentum (2014) History of appendectomy Laparoscopic (2012) Family History Mother , age 77 of heart issues Osteoporosis Heart disease Cancer Hypertension Brother Diabetes Family history of diabetes mellitus Daughter Cervical cancer Father , Patient age 91 with Parkinson's disease Parkinsons Other No family history of adverse response to anesthesia Denies family history of Ovarian cancer Breast cancer Colorectal cancer Stroke Asthma Social History Smoking Status: Never smoker Second Hand Exposure: No; Do You Dip or Chew Tobacco: No; Hx Alcohol Use: No Hx Substance Use: No Preferred Language: Bulgarian Communication Ability: Effective Visual Impairment: Limited Hearing Ability: Normal Word Processing Operator Required: No Beliefs That Will Affect Care: None marital status: Current Living Situation: Spouse current occupational status: retired 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 occupation: 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 age 65 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 Other Information That Helps Us Care for You: No Feels Safe at Home: Yes Safety Concerns: Feels Safe At This Time Diet: regular Dental Care, Regularly: Yes Physical Activity Frequency: Does not Exercise Assistive Devices: Cane and Walker Review of Systems Review of Systems: All systems reviewed & are unremarkable except as noted in Subjective Physical Exam Physical Exam: General: No acute distress Skin: Warm and dry Head: Normocephalic, atraumatic Eyes: PERRL, conjunctivae clear, sclera non-icteric; wearing glasses ENT: External ear and ear canal without swelling; nose atraumatic; good dentition, tongue normal appearance, pharynx normal Neck: Supple, no LAD Cardio: RRR, no M/G/R, S1 and S2 normal Resp: Wearing O2 via NC; no respiratory distress; conversational dyspnea however this is mild; audible wheezing without auscultating the chest; diffuse wheezing throughout auscultation of anterior and posterior chest, some crackles in upper lobes Abdomen: Soft, symmetric, nontender; No masses or hepatosplenomegaly; Bowel sounds normoactive MSK: RLE in medical boot; no deformities; pulses palpable and equal; no edema. Neuro: Awake, alert; Sensation intact bilaterally; CN grossly intact Psych: Appropriate mood and affect; good judgement and insight. Results & Data Results & Data Vital Signs (Past 12 Hours) Vital Signs Temp Pulse Pulse Resp BP BP Pulse Ox 11/14/24 19:10 74 22 119/78 98 11/14/24 18:28 74 18 135/74 93 11/14/24 17:21 88 16 145/72 H 94 11/14/24 16:02 96 H 11/14/24 15:39 85 19 92 11/14/24 15:31 93 H 19 130/68 92 11/14/24 15:17 36.4 C L 95 H 20 137/76 91 O2 Del Method O2 Flow Rate 11/14/24 19:10 Nasal Cannula 2 11/14/24 18:28 Room Air 11/14/24 17:21 Room Air 11/14/24 16:02 11/14/24 15:39 Room Air 11/14/24 15:31 Room Air 11/14/24 15:17 Room Air Laboratory Results 11/14/24 11/14/24 11/14/24 19:20 16:43 15:48 WBC 13.07 H RBC 4.01 L Hgb 11.3 L Hct 34.9 L MCV 87.0 MCH 28.2 MCHC 32.4 RDW Std Deviation 49.2 H RDW Coeff of Manas 15.4 H Plt Count 310 MPV 9.8 Immature Gran % (Auto) 0.4 Neut % (Auto) 70.6 Lymph % (Auto) 22.0 Sullivan % (Auto) 6.4 Eos % (Auto) 0.4 Baso % (Auto) 0.2 Neut # (Auto) 9.22 H Lymph # (Auto) 2.88 Sullivan # (Auto) 0.84 H Eos # (Auto) 0.05 Baso # (Auto) 0.03 Immature Gran # (Auto) 0.05 PT 10.9 INR 1.0 Sodium 138 Potassium 3.6 Chloride 100 Carbon Dioxide 29 Anion Gap 9 BUN 18 Creatinine 0.77 Est Cr Clr Drug Dosing 66.0 eGFR 81.91 BUN/Creatinine Ratio 23.4 H Glucose 177 H Calcium 9.2 Magnesium 1.3 L Total Bilirubin 0.5 AST 16 ALT 11 Alkaline Phosphatase 70 Troponin I High Sens 4.1 B-Natriuretic Peptide 30 Total Protein 7.1 Albumin 3.9 Globulin 3.2 Albumin/Globulin Ratio 1.2 Urine Color Yellow Urine Appearance Clear Urine pH 8.0 H Ur Specific [place] 1.027 Urine Protein Negative Urine Glucose (UA) Negative Urine Ketones Negative Urine Blood Negative Urine Nitrite Negative Urine Bilirubin Negative Urine Urobilinogen Negative Ur Leukocyte Esterase Negative Urine Comment SARS-CoV-2 (PCR) NEGATIVE Influenza Type A (PCR) Negative Influenza Type B (PCR) Negative RSV (RT-PCR) Negative Diagnostic Findings Chest X-Ray 11/14/24 15:39 EXAM: XR chest 1V portable CLINICAL HISTORY: weak, pna. TECHNIQUE: An X-ray image of the chest is obtained in AP projection. COMPARISON: 09/08/2023. FINDINGS: Pulmonary Parenchyma: Expiratory film. Exaggerated basal bronchovascular markings- Stable No evidence of consolidation, collapse, or focal opacities. No pulmonary nodules are identified. No evidence of pleural effusion or pleural thickening. Heart and Mediastinum: Heart size and shape are normal. No mediastinal widening or masses. No hilar or mediastinal lymphadenopathy. Bony Thorax: Evidence of previous spinal fixation and scoliosis- Stable. Soft Tissues: Soft tissues overlying the chest wall are unremarkable. IMPRESSION: 1. No pneumonia or acute cardiopulmonary abnormalities are identified. 2. No significant interval changes. Electronically signed by Danny Dodson 11-14-2024 5:03 PM Chest CTA 11/14/24 16:36 EXAM: CT angio chest PE protocol CLINICAL HISTORY: PE, sob TECHNIQUE: CT angiography of the chest was performed with and without intravenous contrast with the following protocol: axial images with reconstructed coronal and sagittal images. Non-contrast images were initially acquired, followed by contrast-enhanced images in arterial and venous phases. 90 ml Optiray 320 Intravenous contrast was administered using automated injection techniques. Bolus tracking was employed to optimize arterial phase imaging. One of these 3D techniques was utilized: Maximum Intensity Pixel (MIP), 3D Reconstructed Images, Volume Rendered Images, Surface Shaded Rendering. One of the following dose reduction techniques was utilized for this exam. Automated exposure control, adjustment of the mA and/or kV according to patient size, and use of iterative reconstruction. COMPARISON: 10/30/2023. FINDINGS: Poor respiratory control and motion artifact by the patient results in the distortion of the images Aorta and Great Vessels: Ascending Aorta: Normal in caliber, no aneurysm, dissection, or significant atherosclerosis. Aortic Arch: Normal in caliber, no aneurysm, dissection, or significant atherosclerosis. Descending Aorta: Normal in caliber, no aneurysm, dissection, or significant atherosclerosis. Pulmonary Arteries: Improper bolus timing; however, no definite thrombus is seen in the main branches. If clinically concerned, repeat the exam with a proper acquisition time is advised The main pulmonary artery and its branches are patent. No evidence of pulmonary embolism or significant stenosis. Heart: Cardiac Chambers: Normal in size. No evidence of cardiomegaly. Pericardium: No pericardial effusion or thickening. Lungs and Pleura: small patchy bilateral upper lung lobes, centrilobular nodular ground glass opacities noted of likely acute infection. Lungs are clear without evidence of consolidation, collapse, or focal lesions. No pleural effusion or pleural thickening. Mediastinum: No mediastinal mass or abnormal lymphadenopathy. Normal appearance of the trachea and central bronchi. Hilar Structures: Retrocaval enlarged lymph node noted. Hilar structures are normal without enlargement. Chest Wall: No mass lesions or abnormalities in the chest wall. Vascular Structures: Superior Vena Cava: Patent without evidence of stenosis or thrombus. Inferior Vena Cava: Patent without evidence of stenosis or thrombus. Bones and Soft Tissues: stable post-operative changes related to thoracic spine fixation, with vertebral body compression noted. Moderate spondylosis of the thoracic spine noted .. No fractures, lytic, or blastic lesions of the visualized bony structures. Soft tissues are unremarkable. IMPRESSION: 1. Improper bolus timing, however, no definite thrombus is seen in the main branches. If clinically concerned, repeat the exam with a proper acquisition time is advised 2. Small patchy bilateral upper lung lobes, centrilobular nodular ground glass opacities noted, of likely acute infection. 3. Prior exam shows there is no evidence of pulmonary embolism. Large consolidation in the left lower lobe is not seen in the current exam Electronically signed by Danny Dodson 11-14-2024 7:02 PM Medications Administered Magnesium sulfate 2 g IV Ceftriaxone 2 g IV ECG Additional Comments: NSR, RBBB, LAFB 92 bpm, IN 138, QRS 126, QT/QTc 382/472, PRT 9/-49/-4 Code Status & VTE Plan Code Status Full Supervising Physician Co-Signing Physician Notes I personally saw and examined the patient. I independently reviewed the labs, EKG, imaging, problem list, medication list, past medical history and family history. I verified all sims points and agree with Sanjuanita Granados PA-C with the following exceptions and/or additions: 74 year old female presents to the ER with chills, cough and hypoxia HS RRR, no murmurs, Chest bibasal crackles A/P PNA / hypoxia - continue outpatient doxycycline, add ceftriaxone, aim O2 sats > 90% PG Care Time/CCT Total # of Minutes Spent Total Time Spent with Patient: Total time spent is greater than 50% in coordination of care (as documented) at patient's floor/unit and/or counseling patient: Coding Level of Care Code 52229 INT INP/OBS CARE 3/75MIN Diagnoses Hypoxia R09.02 Pneumonia J18.9 Hypomagnesemia E83.42 Diabetes mellitus, type 2 E11.9
[2024-11-14] MEDS: ALBUT/IPRATROP 3MG/0.5MG NEB 3 ML VIAL NEB STA (20:44)
[2024-11-14] MEDS ORDERED: oxyCODONE/ACETAMINOPHEN 5mg/325mg TAB PO PRN (22:23)
[2024-11-14] MEDS ORDERED: ACETAMINOPHEN 325 MG TAB PO PRN (22:23)
[2024-11-14] MEDS ORDERED: DEXTROSE 50% 50 ML SYRINGE IV PRN (22:23)
[2024-11-14] MEDS ORDERED: POLYETHYLENE (MIRALAX) 17 GM PACK PO PRN (22:23)
[2024-11-14] MEDS ORDERED: MELATONIN 3 MG TAB PO PRN (22:23)
[2024-11-14] MEDS ORDERED: GLUCOSE 10 TAB/TUBE PO PRN (22:23)
[2024-11-14] MEDS ORDERED: PHARMACY GLYCEMIC MGMT CONSULT PRN (22:23)
[2024-11-14] MEDS ORDERED: ONDANSETRON INJ 2 MG/ML 2 ML VIAL IV PRN (22:23)
[2024-11-14] MEDS ORDERED: ALBUT/IPRATROP 3MG/0.5MG NEB 3 ML VIAL NEB PRN (22:23)
[2024-11-14] MEDS ORDERED: GLUCOSE 40% GEL 15 GM TUBE PO PRN (22:23)
[2024-11-14] MEDS ORDERED: GLUCAGON FOR INJ 1 MG VIAL SQ PRN (22:23)
[2024-11-14] MEDS ORDERED: CARBOHYDRATES FOR HYPOGLYCEMIA PO PRN (22:23)
[2024-11-14] MEDS: ALBUT/IPRATROP 3MG/0.5MG NEB 3 ML VIAL NEB SCH (22:35)
[2024-11-14] MEDS: FAMOTIDINE 40 MG TABLET PO SCH (22:49)
[2024-11-14] MEDS: DOXYCYCLINE HYCLATE 100 MG CAP PO SCH (22:50)
[2024-11-14] MEDS: GABAPENTIN 300 MG CAP PO SCH (22:50)
[2024-11-14] MEDS: INSULIN ASPART PER UNIT CHARGE SC SCH (23:06)
[2024-11-15] MEDS: CALCIUM CARBONATE 500 MG CHEWABLE TAB PO PRN (04:36)
[2024-11-15 06:43] LABS: Hematocrit (blood only) 34.1 % (37.0-47.0); Hemoglobin 11.2 g/dl (12.0-16.0); Mean Corpuscular Hemoglobin 28.2 pg (25.0-34.0); Mean Corpuscular Hgb Conc 32.8 g/dL (32.0-36.0); Mean Corpuscular Volume 85.9 fL (80.0-100.0); Mean Platelet Volume 9.9 fL (9.4-12.4); Platelet Count 302 K/uL (130-400); RDW Coefficient of Variation 15.4 % (11.5-14.5); RDW Standard Deviation 48.7 fL (36.4-46.3); Red Blood Count 3.97 M/uL (4.20-5.40)
[2024-11-15] MEDS: guaiFENesin 600 MG TABCR PO PRN (07:59)
[2024-11-15] MEDS: DULoxetine HCL 60 MG CAP PO SCH (07:59)
[2024-11-15] MEDS: ENOXAPARIN INJ 40 MG/0.4 ML SYR SQ SCH (08:00)
[2024-11-15] MEDS: hydroCHLOROthiazide 25 MG TAB PO SCH (08:00)
[2024-11-15] MEDS: PANTOprazole 40 MG TAB PO SCH (08:00)
[2024-11-15] MEDS: CLOPIDOGREL BISULFATE 75 MG TAB PO SCH (08:00)
[2024-11-15] MEDS: MAGNESIUM OXIDE 400 MG TAB PO SCH (08:00)
[2024-11-15] MEDS: CELECOXIB 100 MG CAP PO SCH (08:01)
[2024-11-15] MEDS: PRAMIPEXOLE DIHYDROCHLO 0.25 MG TAB PO SCH (08:01)
--- NOTE | 2024-11-15 09:43 | Pharmacy Report ---
Pharmacy Glycemic Short Note 2 - Date of Service November 15, 2024 - Glycemic Short BSG Results (Last 24 hours): 11/14/24 11/14/24 11/15/24 15:48 23:03 07:59 Glucose 177 H POC Glucose 114 H 134 H OUTPATIENT ANTIDIABETIC REGIMEN: * metformin 1000 mg PO BID * glipizide 2.5 mg PO BID HbA1c: 7.3% (11/09/24) ASSESSMENT: * SD is a 74 year old female who presented to [facility] on 11/14/24 for evaluation fo fatigue and gurgling sound while breathing * Patient with history of T2DM that is reasonably controlled with oral agents as an outpatient * Ceftriaxone/doxycycline for possible pneumonia * Ordered a one-time dose of methylprednisolone 40 mg IV this afternoon * Will tighten Novolog and add basal now PLAN FOR INPATIENT GLYCEMIC CONTROL: * Hold outpatient oral diabetes medications * Basal insulin * Lantus 15 units SC x 1 (~0.2 unit/kg to cover steroids) * Bolus insulin * NovoLog per scale ACHS or Q6hrs while NPO * Goal Range: Low 110 mg/dL - High 140 mg/dL * Correction Factor: 20 mg/dL/unit * Nutritional / Prandial insulin per carb ratio of 1 unit per 7 grams CHO consumed
[2024-11-15] MEDS ORDERED: methylPREDNISolone 125 MG/2 ML VIAL IV STA (10:58)
[2024-11-15] MEDS: methylPREDNISolone 40 MG in SYRINGE 0 ML IV ONE (11:52)
[2024-11-15] MEDS: LANTUS PER UNIT CHARGE SC ONE (12:55)
[2024-11-15 15:26] VITALS: O2SAT 93
[2024-11-15 15:32] VITALS: BP 131/74; RESP 20; TEMP 98.2
[2024-11-15 16:11] VITALS: PULSE 76
--- NOTE | 2024-11-15 16:41 | Discharge Summary ---
Discharge Summary Date of Service November 15, 2024 Principal Dx & Hospital Course #1 = Principal Diagnosis (1) Hypoxia: (2) Pneumonia: (3) Hypomagnesemia: (4) Diabetes mellitus, type 2: Plan #Acute hypoxia/possible PNA 74-year-old female PMHx T2DM, HLD, sleep apnea, prior DVT, depression, and anxiety presenting for productive cough with associated chills and fever x 6 days. ED evaluation reveals leukocytosis 13.07, magnesium 1.3; COVID/flu/RSV negative; CXR no pneumonia or acute cardiopulmonary findings; chest CTA with improper bolus timing, but no definite thrombus seen in main branches, small patchy bilateral upper lung lobes centrilobular nodular ground glass opacities of likely acute infection. Patient had been on doxycyline and keflex outpatient for her foot and still with symptoms. Was conversationally dyspneic and hypoxic on room air this morning with coarse lungs sounds and inspiratory and expiratory wheezing. Was given IV methylprednisolone with great improvement. Had remained stable on room air without desaturations and lung sounds greatly improved. Walked in the halls without desaturations. Suspect that this is underlying viral process, however given recent foot infection and + bone path, will d/c with 5 Days of linezolid. Continue duonebs, IS and prednisone taper #Hypomagnesemia History of per prior admissions. No current symptoms. Currently on pantoprazole and HCTZ, could be contributing to recurrence. Does take magnesium at night to sleep. Given IV mag, continue on PO mag. #T2DM A1c 7.3 10/2024. Home regimen: glipizide twice daily and metformin twice daily. Continued at discharge - rec holding evening dose 11/15 given lantus 15units this afternoon. Complication neuropathy with nonhealing diabetic ulceration of subfirst metatarsal head on L foot requiring offloading/wound debridement/abx therapy. 11/11/2024 underwent tibial sesamoidectomy of L foot and debridement of diabetic ulceration subfirst metatarsal head on L foot. Bone path with chronic osteo - Dr. plunkett notified. Discharged with linezolid. #HTN- HCTZ - continue #GERD- Famotidine, pantoprazole - continue #Pain- Celebrex, Endocet - continue #Carotid stenosis- Identified 05/2024 on neck CTA; Plavix - continue #Depression/anxiety- Duloxetine - hold while on linezolid #H/o DVT- Early 2/2 traumatic injury; Recent RLE doppler on 11/09/2024 without evidence of DVT but with some LE edema and popliteal cyst noted Dipso: discharge to home with PCP and podiatry f/ u Notes For Next Care Provider Medication Changes From Visit linezolid BID x 5 days - this may be extended by podiatry Admission HPI Per Admitting Provider 74-year-old female PMHx T2DM, HLD, sleep apnea, prior DVT, depression, and anxiety presenting for productive cough with associated chills and fever x 6 days. Was initially evaluated in the ER 11/09/2024 for calf swelling which noted negative DVT and she was started on Keflex for 5 days which she completed day of arrival. She then had outpatient surgery on her L foot 3 days [employer] [facility] (11/11/2024). She is currently on doxycycline following this. States that over the past week she has felt that she had "cold" symptoms. States that she has been wheezing for days, which was at its worst 11/10/2024, but she did not want to miss her surgery so she tried not to make a big deal out of it. States that since being on some antibiotics, she feels that her wheezing is slightly better, but her daughter feels that it has been worse. The patient has been feeling more weak than normal, she states that she has had a big drop in energy since 5 days GM [facility]LE. Does not feel that she has shortness of breath, and states that whenever she takes her O2 sats at home they range around 95%. She does occasionally have a cough that is mostly nonproductive, but when she would do her nebulizer treatment, she does have a productive cough with yellow sputum. She has an albuterol nebulizer because she is prone to getting pneumonia per her report. She has felt slightly feverish but has not taken her temperature. No chills. She states that 2 days GM [employer]LE she was "confused because I was overmedicated/overdid it." States that she had taken both of her antibiotics and half of the pain medication and states that she felt a little foggy at that time. Believe that she had seen a mouse in the house, but states that looking back at now she does not think that was real. She has not been around any sick contacts. No orthopnea or lower extremity swelling. Does have some nausea, without vomiting. No dizziness or lightheadedness. Overall denying chest pain, palpitations, abdominal pain, V/D/C, numbness/tingling, chills, LUTS, tinnitus, syncope, lightheadedness, or LOC. She has been taking her medications as prescribed. Took her Keflex for 5 days (started on 11/09/2024). Her doxycycline is to be continued for total duration of 15 days which she started on 11/05/2024. ED evaluation reveals leukocytosis 13.07, H&H 11.3/34.9; PT/INR WNL; CMP glucose 177, BUN/creatinine ratio 23.4, magnesium 1.3; COVID/flu/RSV negative; CXR no pneumonia or acute cardiopulmonary findings; chest CTA with improper bolus timing, but no definite thrombus seen in main branches, small patchy bilateral upper lung lobes centrilobular nodular groundglass opacities of likely acute infection; EKG NSR, RBBB, LAFB at 92 bpm.; Patient was provided with mag sulfate 2 g IV and ceftriaxone 2 g IV in ED. Please see Dr. Meeks's attestation for adjustments/additions to treatment plan. Discharge Exam ON reeval prior to d/c General: NAD, VS as above Resp: normal respiratory effort, no wheezing, coarse in the bases CV: RRR, no murmur, Abd: normal bowel sounds, non tender, no hepatosplenomegaly Extremities: Moves all extremities, left waklking boot in place Neuro: A&O x3, Skin: intact, no lesions noted Discharge Plan Discharge Items Patient Disposition: Home - Self-Care Reason For Visit: HYPOXIC, PNA Discharge Diagnosis: Suspect Viral Pneumonia Condition on Discharge: Fair Activity: Resume your previous activity Lifting: Gradually increase as tolerated Driving/Machine Use: No limitations Weightbearing: Full weightbearing Non-emergency contact: Primary Care Provider and Surgeon Call non-emergency contact if: you have any medication questions, your symptoms worsen, your pain is not controlled and your temperature is above 101 Follow-up/Referrals: Gerardo Plunkett DPM [Surgeon] - (keep appointment as scheduled ) Tsering Casper MD [Primary Care Provider] - (follow up within one week ) Diet: Carb Consistent or DM2 Addtl Attending Provider Instructions: Ms. Elizabeth, You were hospitalized after having worsening shortness of breath at home. There were concerns about pneumonia but the imaging was not super convincing of this. However, you improved greatly with steroids and I suspect that your shortness of breath was related to a viral infection. Your COVID/Flu/RSV swab was negative but there are many other viruses that could cause this. You will be on linezolid for 5 days to cover anything in the lungs and your foot infection. Please do not take your Cymbalta while taking this. Continue on steroid taper Use your nebulizer machine at least twice a day, but up to every 4 hours as needed Continue to use the incentive spirometer 10 times every hour. Resume your diabetic medications tomorrow morning, you recieved long acting insulin that may bottom out your sugars if you take them tonight. Follow up with podiatry as scheduled follow up with your PCP alonso one week Activity: You can do normal everyday activities as your body allows. Take rest breaks if you feel tired. Do not overexert. Stop activity if you have pain, shortness of breath or feel dizzy. CONTACT YOUR PRIMARY CARE PROVIDER if you experience any of the following: Shortness of breath or difficulty breathing Fevers or chills Feeling tired with normal activity or experiencing dizziness or fainting Difficulty following your treatment plan, or difficulty taking medications CALL 911 OR GO TO THE EMERGENCY DEPARTMENT if you experience any of the following: Severe abdominal pain or nausea/vomiting Severe chest pain, or chest pain that radiates (moves) to your jaw or arm Sudden, severe shortness of breath or difficulty breathing Thank you for allowing us to participate in your care. Pending Studies at Discharge: No Stand-Alone Forms: My [facility], Smoking Cessation Medications and DC Order Prescriptions: New ipratropium-albuterol 0.5 mg-3 mg(2.5 mg base)/3 mL Solution For Nebulization 3 ml NEB Q4R PRN (Reason: shortness of breath) Qty: 90 0RF linezolid 600 mg tablet 600 mg PO BID Qty: 10 0RF prednisone 10 mg tablet See Taper PO DIRECTED Qty: 30 0RF Taper: Taper, Blank 40 mg DAILY for 3 Days 30 mg DAILY for 3 Days 20 mg DAILY for 3 Days 10 mg DAILY for 3 Days Rx Instructions: see taper instructions Continued duloxetine [Cymbalta] 60 mg capsule,delayed release(DR/EC) 60 mg PO QAM famotidine 40 mg tablet 40 mg PO QPM hydrochlorothiazide 25 mg tablet 25 mg PO QAM metformin 1,000 mg tablet 1,000 mg PO BID glipizide 2.5 mg tablet extended release 24hr 2.5 mg PO BID pantoprazole 40 mg tablet,delayed release (DR/EC) 40 mg PO QAM gabapentin 300 mg capsule 900 mg PO TID Patient Comments: TAKES 3 TAB TID triamcinolone acetonide 0.1 % cream 1 applic TOPICAL DAILY PRN (Reason: dry legs) acetaminophen 325 mg Tablet 650 mg PO Q4H PRN (Reason: pain) Qty: 30 0RF magnesium 250 mg tablet 250 mg PO HS Qty: 30 0RF multivitamin Tablet 1 tab PO QAM guaifenesin [Mucinex] 600 mg tablet extended release 12hr 1,200 mg PO Q12 PRN (Reason: Congestion) celecoxib [Celebrex] 100 mg capsule 100 mg PO QAM clopidogrel [Plavix] 75 mg Tablet 75 mg PO QAM vitamin B complex Capsule 1 cap PO DAILY oxycodone-acetaminophen [Endocet] 5-325 mg tablet 1 tab PO Q6H PRN (Reason: pain) Qty: 20 0RF Discontinued doxycycline hyclate 100 mg capsule 100 mg PO BID Qty: 15 0RF Rx Instructions: Start Date 11/05/24 x15 day supply cephalexin 500 mg capsule 500 mg PO TID Rx Instructions: Start Date 11/09/24 x5 day supply Discharge Orders: Discharge Order (Routine); Ordered 11/15/24 Ordered By: Araseli Riddle Admission Data Admit Date/Time: 11/14/24 20:21 Attending Provider: Kirsty Hinds Admit Provider: Gavino Meeks Primary Care Provider: Tsering Casper Other Providers: Gavino Meeks Other Interventions: Discharge Summary Assessment (RN) Last Done: 11/15/24 16:11 Hospital Stay Data Consultations 11/14/24 19:29 ED Decision to Admit Stat Diagnostic Imagining Performed Chest X-Ray 11/14/24 15:39 EXAM: XR chest 1V portable CLINICAL HISTORY: weak, pna. TECHNIQUE: An X-ray image of the chest is obtained in AP projection. COMPARISON: 09/08/2023. FINDINGS: Pulmonary Parenchyma: Expiratory film. Exaggerated basal bronchovascular markings- Stable No evidence of consolidation, collapse, or focal opacities. No pulmonary nodules are identified. No evidence of pleural effusion or pleural thickening. Heart and Mediastinum: Heart size and shape are normal. No mediastinal widening or masses. No hilar or mediastinal lymphadenopathy. Bony Thorax: Evidence of previous spinal fixation and scoliosis- Stable. Soft Tissues: Soft tissues overlying the chest wall are unremarkable. IMPRESSION: 1. No pneumonia or acute cardiopulmonary abnormalities are identified. 2. No significant interval changes. Electronically signed by Danny Dodson 11-14-2024 5:03 PM Chest CTA 11/14/24 16:36 EXAM: CT angio chest PE protocol CLINICAL HISTORY: PE, sob TECHNIQUE: CT angiography of the chest was performed with and without intravenous contrast with the following protocol: axial images with reconstructed coronal and sagittal images. Non-contrast images were initially acquired, followed by contrast-enhanced images in arterial and venous phases. 90 ml Optiray 320 Intravenous contrast was administered using automated injection techniques. Bolus tracking was employed to optimize arterial phase imaging. One of these 3D techniques was utilized: Maximum Intensity Pixel (MIP), 3D Reconstructed Images, Volume Rendered Images, Surface Shaded Rendering. One of the following dose reduction techniques was utilized for this exam. Automated exposure control, adjustment of the mA and/or kV according to patient size, and use of iterative reconstruction. COMPARISON: 10/30/2023. FINDINGS: Poor respiratory control and motion artifact by the patient results in the distortion of the images Aorta and Great Vessels: Ascending Aorta: Normal in caliber, no aneurysm, dissection, or significant atherosclerosis. Aortic Arch: Normal in caliber, no aneurysm, dissection, or significant atherosclerosis. Descending Aorta: Normal in caliber, no aneurysm, dissection, or significant atherosclerosis. Pulmonary Arteries: Improper bolus timing; however, no definite thrombus is seen in the main branches. If clinically concerned, repeat the exam with a proper acquisition time is advised The main pulmonary artery and its branches are patent. No evidence of pulmonary embolism or significant stenosis. Heart: Cardiac Chambers: Normal in size. No evidence of cardiomegaly. Pericardium: No pericardial effusion or thickening. Lungs and Pleura: small patchy bilateral upper lung lobes, centrilobular nodular ground glass opacities noted of likely acute infection. Lungs are clear without evidence of consolidation, collapse, or focal lesions. No pleural effusion or pleural thickening. Mediastinum: No mediastinal mass or abnormal lymphadenopathy. Normal appearance of the trachea and central bronchi. Hilar Structures: Retrocaval enlarged lymph node noted. Hilar structures are normal without enlargement. Chest Wall: No mass lesions or abnormalities in the chest wall. Vascular Structures: Superior Vena Cava: Patent without evidence of stenosis or thrombus. Inferior Vena Cava: Patent without evidence of stenosis or thrombus. Bones and Soft Tissues: stable post-operative changes related to thoracic spine fixation, with vertebral body compression noted. Moderate spondylosis of the thoracic spine noted .. No fractures, lytic, or blastic lesions of the visualized bony structures. Soft tissues are unremarkable. IMPRESSION: 1. Improper bolus timing, however, no definite thrombus is seen in the main branches. If clinically concerned, repeat the exam with a proper acquisition time is advised 2. Small patchy bilateral upper lung lobes, centrilobular nodular ground glass opacities noted, of likely acute infection. 3. Prior exam shows there is no evidence of pulmonary embolism. Large consolidation in the left lower lobe is not seen in the current exam Electronically signed by Danny Dodson 11-14-2024 7:02 PM Pending Results Patient Have Any Pending Studies at Discharge: No Discharge Instructions Given to Patient (Per Discharging Provider) Ms. Elizabeth, You were hospitalized after having worsening shortness of breath at home. There were concerns about pneumonia but the imaging was not super convincing of this. However, you improved greatly with steroids and I suspect that your shortness of breath was related to a viral infection. Your COVID/Flu/RSV swab was negative but there are many other viruses that could cause this. You will be on linezolid for 5 days to cover anything in the lungs and your foot infection. Please do not take your Cymbalta while taking this. Continue on steroid taper Use your nebulizer machine at least twice a day, but up to every 4 hours as needed Continue to use the incentive spirometer 10 times every hour. Resume your diabetic medications tomorrow morning, you recieved long acting insulin that may bottom out your sugars if you take them tonight. Follow up with podiatry as scheduled follow up with your PCP alonso one week Activity: You can do normal everyday activities as your body allows. Take rest breaks if you feel tired. Do not overexert. Stop activity if you have pain, shortness of breath or feel dizzy. CONTACT YOUR PRIMARY CARE PROVIDER if you experience any of the following: Shortness of breath or difficulty breathing Fevers or chills Feeling tired with normal activity or experiencing dizziness or fainting Difficulty following your treatment plan, or difficulty taking medications CALL 911 OR GO TO THE EMERGENCY DEPARTMENT if you experience any of the following: Severe abdominal pain or nausea/vomiting Severe chest pain, or chest pain that radiates (moves) to your jaw or arm Sudden, severe shortness of breath or difficulty breathing Thank you for allowing us to participate in your care. Total Time Total Time Spent Total Time Spent (In Minutes): Time spent day of discharge 42 minutes including direct patient care, medication reconciliation, documentation, review of labs and images, and coordination of care. Case discussed with Dr. Plunkett Coding Level of Care Code 08284 INP/OBS DISCH >30 MIN Diagnoses Hypoxia R09.02 Pneumonia J18.9 Hypomagnesemia E83.42 Diabetes mellitus, type 2 E11.9
[2024-11-15] MEDS ORDERED: cefTRIAXone SODIUM 2,000 MG/50 ML BAG IV SCH (20:00)
--- NOTE | 2024-11-16 05:49 | Electrocardiogram Report ---
Test Reason : Blood Pressure : */* mmHG Vent. Rate : 92 BPM Atrial Rate : 92 BPM P-R Int : 138 ms QRS Dur : 126 ms QT Int : 382 ms P-R-T Axes : 9 -49 -4 degrees QTcB Int : 472 ms Normal sinus rhythm Right bundle branch block Left anterior fascicular block Bifascicular block Septal infarct , age undetermined Abnormal ECG When compared with ECG of 09-Nov-2024 10:11, Nonspecific T wave abnormality now evident in Anterior leads Confirmed by Justus Aguirre ([id number]) on 11/16/2024 5:48:51 AM Referred By: REFERRED SELF Confirmed By: Justus Aguirre
--- NOTE | 2024-11-17 06:34 | Coding Query ---
CODING QUERY To promote full compliance with coding requirements relating to patient care, provider participation is requested in all cases of sheet metal engineer uncertainty. Please assist us with the question(s) below: Coding Question(s): There is documentation, starting on the ED Note of past medical history, including, "osteomyelitis of the left foot status post podiatry surgical intervention 2 days ago", and, "Is currently on antibiotics related to the foot infection and has been taking them", and the Discharge Summary documents, "Patient had been on doxycyline and keflex outpatient for her foot and still with symptoms", and, "Suspect that this is underlying viral process, however given recent foot infection and + bone path, will d/c with 5 Days of linezolid", and, under T2DM, "Complication neuropathy with nonhealing diabetic ulceration of subfirst metatarsal head on L foot requiring offloading/wound debridement/abx therapy. 11/11/2024 underwent tibial sesamoidectomy of L foot and debridement of diabetic ulceration subfirst metatarsal head on L foot. Bone path with chronic osteo - Dr. thomas notified. Discharged with linezolid", and, "You will be on linezolid for 5 days to cover anything in the lungs and your foot infection", and, "Case discussed with Dr. Thomas". Please specify below, in your clinical opinion, for correct coding of the foot infection, + bone path, bone path with chronic osteo during this admission: ( x ) Patient was actively treated and/or monitored during this admission, for DM foot infection of chronic osteomyelitis, with treatment including Linezolid, and discussion with Dr. Thomas. ( ) Patient was actively treated and/or monitored during this admission for Other Foot Infection. Please Specify ( ) Patient was Not actively treated and/or monitored during this admission for foot infection Physician's Response(s): Thank you Elena Avila Principal Diagnosis: "that condition established after study, to be chiefly responsible for occasioning the admission of the patient to the hospital for care." Co-Existing Principal Diagnosis: "when two or more diagnoses equally meet the criteria for principal diagnosis as determined by the circumstances of admission, diagnostic work up, and/or therapy provided, and the Alphabetic Index, Tabular List, or another coding guideline does not provide sequencing direction, any one of the diagnoses may be sequenced first." "When the physician has documented what appears to be a current diagnosis in the body of the record, but has not included the diagnosis in the final diagnostic statement, the physician should be asked whether the diagnosis should be added." (Source Coding Clinic 2 QTR90. p3-4) GEOFF
== END 2024-11-15 16:29 | disposition home or self-care (01) ==
LOC: ED 15:15 → INTOOBSV 20:21 → 2N 20:21 → SUATTDRO 20:21 → 2N 22:06

== ENCOUNTER 2024-12-02 10:39 | Inpatient (IN) ==
[2024-12-02] MEDS ORDERED: VANCOMYCIN CONSULT ACTIVE PRN (11:00)
--- NOTE | 2024-12-02 11:02 | Emergency Department Note ---
Impression & Plan Cellulitis, Acute leg pain, Leukocytosis, Anemia ED Provider Note NAME: BRISEYDA PORTILLO AGE: 74 SEX: F : 1950 ARRIVES VIA: Walk-In INFORMANT: Patient ED PROVIDER(S): Ankur Ruiz DO CHIEF COMPLAINT: Left leg pain swelling and redness HPI: Patient is a 74-year-old female with a history of osteomyelitis of the left foot who presents to the ER for redness and pain including drainage of the left medial foot. She notes she had surgery on this by Dr. Plunkett on 11/11/2024. Last week the redness started has been getting worse. Currently on Bactrim. Denies any headache or change in vision. No chest pain or shortness of breath. No dysuria, urgency, or frequency. No other exacerbating or remitting factors. She was sent in by wound care. ADDITIONAL HISTORY OBTAINED: Per HPI Chronic Medical/Social Conditions Affecting Care: Per HPI PAST MEDICAL HISTORY:See Below PAST SURGICAL HISTORY:See Below FAMILY HISTORY:See Below SOCIAL HISTORY:See Below HOME MEDICATIONS:See Below ALLERGIES:See Below VITALS:See Below PHYSICAL EXAMINATION: GENERAL: Sitting up in bed, alert, well appearing, well nourished, no distress, non-toxic EYE EXAM: normal conjunctiva. OROPHARYNX:mucous membranes are moist NECK: supple, no nuchal rigidity, no adenopathy, non-tender LUNGS: Clear to auscultation. Normal chest wall mechanics HEART: no murmurs, S1 normal and S2 normal ABDOMEN: abdomen soft, non-tender, normo-active bowel sounds, no masses, no rebound or guarding. UPPER EXTREMITIES: upper extremities are grossly normal. LOWER EXTREMITIES: DP 2 out of 4 on the left foot. Wound on the medial aspect of the first metatarsal with an ulcer on the base of the first metatarsal. No drainage or discharge but redness streaking up the foot to the mid calf medially. Skin is warm and tender. NEURO EXAM: Normal sensorium, cranial nerves II-XII grossly intact, normal speech, no gross weakness of arms, no gross weakness of legs. MEDICAL DECISION MAKING: Patient is a 74-year-old female who presents ER for the above-stated complaint. IV was established and blood work was obtained. Labs show mild leukocytosis 11.8 thousand. Mild anemia 11.4. BMP normal LFTs bilirubin was unremarkable. X-ray of the foot shows no obvious osteo. On exam she does have a clear cellulitis. She was given IV antibiotics which include cefepime and vancomycin. Case was discussed with hospitalist for further evaluation management treatment. Consults/Care Managements Discussions: Per [facility] Triage Nursing notes reviewed. Limited review of prior medical records performed Vital Signs: reviewed and remarkable for no significant abnormalities Differential diagnosis: Cellulitis, abscess, MRSA infection, DVT, necrotizing fasciitis, dermatitis, drug eruption, allergic reaction, as well as other pathologies. ER treatment provided: See below Diagnostics interpreted by me include EKG and cardiac monitoring as listed below: -Cardiac Monitoring: An order was placed for continuous cardiac monitoring. The monitor shows a rate of 88 with sinus rhythm. -ECG: none -Laboratory studies:Interpreted by me as stated above in MDM and shown below. Imaging studies: Xrays: As interpreted by me: X-ray of the foot shows no obvious fracture per my interpretation CTs show: none Procedures:none Critical Care: None Past Med/Surg History Problem List (Updated 12/02/24 @ 14:17 by Ankur Ruiz DO) Anemia (Acute) Leukocytosis (Acute) Acute leg pain (Acute) Cellulitis (Acute) Osteomyelitis of left foot Hypoxia (Acute) Pneumonia (Acute) Post-op pain Chronic ulcer of left foot with fat layer exposed Diabetic foot ulcer (Acute) HERIBERTO (obstructive sleep apnea) Insomnia Carotid stenosis Basilar artery stenosis Cerebrovascular disease (Acute) Elevated troponin I level (Acute) Carpal tunnel syndrome on right Hypomagnesemia (Acute) Implantable intrathecal infusion pump present containing hydromorphone Claudication of lower extremity Peripheral edema Intermittent (no issues at [facility] appt 08/28/22) Laryngopharyngeal reflux (LPR) Chronic laryngitis Rotator cuff arthropathy of right shoulder Therapeutic opioid-induced constipation (OIC) Adhesive capsulitis of right shoulder Arthritis of shoulder region, right Lactic acidosis (Acute) Lumbosacral radiculopathy Chronic SI joint pain Left lumbar radiculopathy (Acute) Frequent falls Ambulatory dysfunction Morbid obesity with BMI of 40.0-44.9, adult Elevated CK Hypoxemia (Acute) Lumbar postlaminectomy syndrome (Chronic) Restless leg syndrome Fracture of transverse process of thoracic vertebra (Acute) Weakness of lower extremity (Chronic) Surgical wound, non healing (Acute) Encounter for pre-operative examination Degenerative disc disease (Chronic) Sleep apnea (Chronic) NO DEVICE USED Hypertension (Chronic) Panic disorder (Chronic) 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) Major depressive disorder (Chronic) Generalized anxiety disorder (Chronic) Intractable neuropathic pain of lower extremity (Chronic) Intractable low back pain (Chronic) Depressive disorder (Chronic) 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) Lumbar spondylosis (Chronic) Lumbar spinal stenosis (Chronic) Hyperlipidemia (Chronic) Fatty liver (Chronic) Diabetic peripheral neuropathy associated with type 2 diabetes mellitus (Chronic) Diabetes (Acute) Medical History Chronic SI joint pain Cerebrovascular disease Basilar artery stenosis Hx of respiratory failure (10/2023) Ambulatory dysfunction uses walker Wheezing History of DVT (deep vein thrombosis) Early (was hit by a board/bat to leg and developed clot) Diabetic peripheral neuropathy Hyperlipidemia Fatty liver Diabetes mellitus, type 2 Lumbar spinal stenosis Anxiety and depression Hypertension Degenerative disc disease Walker as ambulation aid Implantable intrathecal infusion pump present Containing hydromorphone Diarrhea History of pneumonia PNA annually (no current/recent dx) Reason for albuterol neb + inhaler PRN per patient Sleep apnea No device Chronic ulcer of left foot Follows with [place] [facility] Carotid stenosis Neck CTA 05/2024: The carotid arteries are without hemodynamically significant stenosis although there is again noted to be approximately 60% stenosis of the internal carotid artery on the left. Reason for Plavix per patient History of COVID-19 (04/2020) [facility] hospitalization, "resolved" Hx of gout GERD (gastroesophageal reflux disease) Restless leg syndrome History of kidney stones Surgical History Status post insertion of intrathecal pump (09/03/22) History of incision and drainage (07/01/24) Left foot wound debridement, [facility] History of back surgery 4 back surgeries total, most recent 2020 History of esophagogastroduodenoscopy (EGD) History of colonoscopy (07/28/24) [facility] History of tooth extraction H/O varicose vein ligation and stripping Saphenous vein History of open reduction and internal fixation (ORIF) procedure Right ankle History of section x3 History of herniorrhaphy Repair of incarcerated incisional hernia with Surgimesh 10cm in diameter resection of incarcerated omentum (2014) History of appendectomy Laparoscopic (2012) Family History Mother , age 77 of heart issues Osteoporosis Heart disease Cancer Hypertension Brother Diabetes Family history of diabetes mellitus Daughter Cervical cancer Father , Patient age 91 with Parkinson's disease Parkinsons Other No family history of adverse response to anesthesia Denies family history of Ovarian cancer Breast cancer Colorectal cancer Stroke Asthma Social History Smoking Status: Never smoker Second Hand Exposure: No; Do You Dip or Chew Tobacco: No; Hx Alcohol Use: No Hx Substance Use: No Preferred Language: Bahraini Communication Ability: Effective Visual Impairment: Limited Hearing Ability: Normal Occupational Therapy Supervisor Required: No Beliefs That Will Affect Care: None marital status: Current Living Situation: Spouse current occupational status: retired 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 Feels Safe at Home: Yes Diet: regular Dental Care, Regularly: Yes Physical Activity Frequency: Does not Exercise Assistive Devices: Cane and Walker Allergies Allergies Allergy/AdvReac Type Severity Reaction Status Date / Time cefuroxime AdvReac Intermediate upset Verified 12/02/24 08:47 stomach prochlorperazine AdvReac Intermediate Confusion Verified 12/02/24 08:47 [From Compazine] Home Meds Home Medications Medication Instructions Recorded Confirmed glipizide 2.5 mg tablet, extended 2.5 mg PO BID 06/05/20 12/02/24 release 24 hr metformin 1,000 mg tablet 1,000 mg PO BID 06/05/20 12/02/24 pantoprazole 40 mg tablet,delayed 40 mg PO QAM 06/05/20 12/02/24 release gabapentin 300 mg capsule 900 mg PO TID 08/07/20 12/02/24 multivitamin 1 tab PO QAM 08/28/22 12/02/24 triamcinolone acetonide 0.1 % 1 applic topical DAILY PRN dry legs 07/01/23 12/02/24 topical cream guaifenesin 600 mg tablet, 1,200 mg PO Q12 PRN Congestion 10/30/23 12/02/24 extended release 12 hr (Mucinex) duloxetine 60 mg capsule,delayed 60 mg PO QAM 03/25/24 12/02/24 release (Cymbalta) famotidine 40 mg tablet 40 mg PO QPM 05/06/24 12/02/24 hydrochlorothiazide 25 mg tablet 25 mg PO QAM 05/06/24 12/02/24 celecoxib 100 mg capsule (Celebrex) 100 mg PO QAM 07/21/24 12/02/24 clopidogrel 75 mg tablet (Plavix) 75 mg PO QAM 07/21/24 12/02/24 vitamin B complex 1 cap PO DAILY 11/08/24 12/02/24 Previous Rx's Medication Instructions Recorded acetaminophen 325 mg tablet 650 mg (2 x 325 mg) PO Q4H PRN 07/04/23 pain #30 tabs magnesium 250 mg tablet 250 mg PO HS #30 tabs 07/04/23 oxycodone-acetaminophen 5 mg-325 1 tab PO Q6H PRN pain #20 tabs 11/11/24 mg tablet (Endocet) ipratropium 0.5 mg-albuterol 3 mg 3 ml NEB Q4R PRN shortness of 11/15/24 (2.5 mg base)/3 mL nebulization breath #90 mL soln linezolid 600 mg tablet 600 mg PO BID #10 tabs 11/15/24 sulfamethoxazole 400 1 tab PO BID #14 tabs 11/26/24 mg-trimethoprim 80 mg tablet (Bactrim) Results & Data (ED) Vital Signs Vital Signs - 24 hr 12/02/24 10:40 12/02/24 11:20 12/02/24 11:34 Temperature 36.8 C Temperature Source Temporal Artery Scan Pulse Rate 99 H 90 91 H Pulse Rate [Left Finger] Pulse Rhythm Regular Respiratory Rate 18 18 Respiratory Effort / Characteristics Non-Labored Spontaneous Respiratory Depth Normal Blood Pressure 124/63 Blood Pressure [Left Arm] Blood Pressure Mean 83 Blood Pressure Mean [Left Arm] Blood Pressure Position Sitting Blood Pressure Position [Left Arm] Pulse Oximetry 96 97 Oxygen Delivery Method Room Air Room Air Sepsis Recent Fever Within 48 Hours No Sepsis New/Unexplained Change in Mental Status No Sepsis Action Taken by Nursing No Action Required 12/02/24 13:15 Temperature Temperature Source Pulse Rate Pulse Rate [Left Finger] 87 Pulse Rhythm Respiratory Rate 18 Respiratory Effort / Characteristics Respiratory Depth Blood Pressure Blood Pressure [Left Arm] 146/91 H Blood Pressure Mean Blood Pressure Mean [Left Arm] 109 Blood Pressure Position Blood Pressure Position [Left Arm] Sitting Pulse Oximetry 95 Oxygen Delivery Method Room Air Sepsis Recent Fever Within 48 Hours Sepsis New/Unexplained Change in Mental Status Sepsis Action Taken by Nursing Laboratory Data 12/02/24 11:20 12/02/24 11:20 Lab Results 12/02/24 Range/Units 11:20 WBC 11.86 H (4.8-10.8) K/ul RBC 4.02 L (4.20-5.40) M/uL Hgb 11.4 L (12.0-16.0) g/dl Hct 35.9 L (37.0-47.0) % MCV 89.3 (80.0-100.0) fL MCH 28.4 (25.0-34.0) pg MCHC 31.8 L (32.0-36.0) g/dL RDW Std Deviation 51.7 H (36.4-46.3) fL RDW Coeff of Manas 15.9 H (11.5-14.5) % Plt Count 315 (130-400) K/uL MPV 9.9 (9.4-12.4) fL Immature Gran % (Auto) 0.4 % Neut % (Auto) 66.9 % Lymph % (Auto) 23.4 % [place] % (Auto) 8.2 % Eos % (Auto) 0.8 % Baso % (Auto) 0.3 % Neut # (Auto) 7.93 H (1.40-6.50) K/uL Lymph # (Auto) 2.78 (1.20-3.40) K/uL [place] # (Auto) 0.97 H (0.11-0.59) K/uL Eos # (Auto) 0.09 (0.00-0.50) K/uL Baso # (Auto) 0.04 (0.00-0.20) K/uL Immature Gran # (Auto) 0.05 (0.01-0.20) K/uL Sodium 136 (136-145) mmol/L Potassium 4.0 (3.5-5.1) mmol/L Chloride 98 (98-107) mmol/L Carbon Dioxide 27 (21-32) mmol/L Anion Gap 11 (3-11) BUN 12 (6-23) mg/dl Creatinine 0.88 (0.6-1.2) mg/dl Est Cr Clr Drug Dosing 56.6 ml/min eGFR 69.78 BUN/Creatinine Ratio 13.6 (10-20) Glucose 197 H (70-99(Fasting)) mg/dl Calcium 9.3 (8.6-10.3) mg/dl Total Bilirubin 0.4 (0.2-1.0) mg/dl AST 33 (13-39) U/L ALT 40 (7-52) U/L Alkaline Phosphatase 94 (34-104) U/L Total Protein 7.5 (6.0-8.3) gm/dl Albumin 3.4 (3.4-5.0) gm/dl Globulin 4.1 H (2.5-4.0) gm/dl Albumin/Globulin Ratio 0.8 L (0.9-2) Administered Medications Discontinued Medications Sodium Chloride (Nss) 1,000 mls @ 999 mls/hr IV .Q1H1M ONE Stop: 12/02/24 12:00 Last Admin: 12/02/24 11:21 Dose: 999 mls/hr Documented By: NATALYA Cefepime HCl (Maxipime 2000mg) 2,000 mg in 20 mls @ 5 mls/min IV NOW STA; Protocol Stop: 12/02/24 11:03 Last Admin: 12/02/24 11:19 Dose: 5 mls/min Documented By: NATALYA Vancomycin HCl 1,750 mg/ (Sodium Chloride) 535 mls @ 200 mls/hr IV NOW ONE Stop: 12/02/24 13:40 Last Admin: 12/02/24 11:40 Dose: 200 mls/hr Documented By: NATALYA Imaging Data Radiologist's Impression: Foot X-Ray 12/02/24 11:00 XR foot LT min 3V routine CLINICAL HISTORY: l foot ulcer and wound COMPARISON: 06/28/2024 FINDINGS: There is osteopenia. There are atherosclerotic calcifications. No fracture or dislocation. No evidence of osteomyelitis. No radiopaque foreign body. IMPRESSION: No osteomyelitis seen. ACT 112: Negative or not required by law. Electronically signed by: Tarun Gutiérrez M.D. 12/02/2024 12:20 PM Discharge Plan Visit Data Chief Complaint: Wound Stated Complaint: REF BY WOUND CLINIC FOR L FOOT ED Provider: Ankur Ruiz Discharge Problem: Cellulitis, Acute leg pain, Leukocytosis, Anemia Condition: Fair Forms Stand Alone Forms: [facility] [employer] Prescriptions Prescriptions: No Action duloxetine [Cymbalta] 60 mg capsule,delayed release(DR/EC) 60 mg PO QAM famotidine 40 mg tablet 40 mg PO QPM hydrochlorothiazide 25 mg tablet 25 mg PO QAM sulfamethoxazole-trimethoprim [Bactrim] 400-80 mg tablet 1 tab PO BID Qty: 14 0RF metformin 1,000 mg tablet 1,000 mg PO BID glipizide 2.5 mg tablet extended release 24hr 2.5 mg PO BID pantoprazole 40 mg tablet,delayed release (DR/EC) 40 mg PO QAM gabapentin 300 mg capsule 900 mg PO TID Patient Comments: TAKES 3 TAB TID triamcinolone acetonide 0.1 % cream 1 applic TOPICAL DAILY PRN (Reason: dry legs) acetaminophen 325 mg Tablet 650 mg PO Q4H PRN (Reason: pain) Qty: 30 0RF magnesium 250 mg tablet 250 mg PO HS Qty: 30 0RF multivitamin Tablet 1 tab PO QAM ipratropium-albuterol 0.5 mg-3 mg(2.5 mg base)/3 mL Solution For Nebulization 3 ml NEB Q4R PRN (Reason: shortness of breath) Qty: 90 0RF linezolid 600 mg tablet 600 mg PO BID Qty: 10 0RF guaifenesin [Mucinex] 600 mg tablet extended release 12hr 1,200 mg PO Q12 PRN (Reason: Congestion) celecoxib [Celebrex] 100 mg capsule 100 mg PO QAM clopidogrel [Plavix] 75 mg Tablet 75 mg PO QAM vitamin B complex Capsule 1 cap PO DAILY oxycodone-acetaminophen [Endocet] 5-325 mg tablet 1 tab PO Q6H PRN (Reason: pain) Qty: 20 0RF Referrals Referrals: Tsering Casper MD [Primary Care Provider] - Discharge Problem: Cellulitis Qualifiers: Site of cellulitis: unspecified site Qualified Code(s): L03.90 - Cellulitis, unspecified Acute leg pain Qualifiers: Laterality: left Qualified Code(s): M79.605 - Pain in left leg Leukocytosis Qualifiers: Leukocytosis type: unspecified Qualified Code(s): D72.829 - Elevated white blood cell count, unspecified Anemia Qualifiers: Anemia type: unspecified type Qualified Code(s): D64.9 - Anemia, unspecified
[2024-12-02] MEDS: CEFEPIME 2000MG 2,000 MG/20 ML SYR IV STA (11:19)
[2024-12-02] MEDS: SODIUM CHLORIDE 0.9% 1,000 ML IV ONE (11:21)
[2024-12-02 11:37] LABS: Hematocrit (blood only) 35.9 % (37.0-47.0); Hemoglobin 11.4 g/dl (12.0-16.0); Immature Granulocytes # (auto) 0.05 K/uL (0.01-0.20); Immature Granulocytes % (auto) 0.4 %; Mean Corpuscular Hemoglobin 28.4 pg (25.0-34.0); Mean Corpuscular Volume 89.3 fL (80.0-100.0); Platelet Count 315 K/uL (130-400); RDW Standard Deviation 51.7 fL (36.4-46.3); Red Blood Count 4.02 M/uL (4.20-5.40); White Blood Count 11.86 K/ul (4.8-10.8)
[2024-12-02] MEDS: VANCOMYCIN HCL 1,750 MG in SODIUM CHLORIDE 0.9% 500 ML IV ONE (11:40)
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
[2024-12-02 11:55] LABS: Alanine Aminotransferase 40.0 U/L (7-52); Albumin Globulin Ratio 0.8 (0.9-2); Alkaline Phosphatase 94.0 U/L (34-104); Anion Gap 11.0 (3-11); Bilirubin,Total 0.4 mg/dl (0.2-1.0); Blood Urea Nitrogen 12.0 mg/dl (6-23); Calcium 9.3 mg/dl (8.6-10.3); Carbon Dioxide 27.0 mmol/L (21-32); Chloride 98.0 mmol/L (98-107); Creatinine Clr Calc Pharmacy 56.6 ml/min; Globulin 4.1 gm/dl (2.5-4.0); Glucose 197.0 mg/dl (70-99(Fasting)); Potassium 4.0 mmol/L (3.5-5.1); Sodium 136.0 mmol/L (136-145); Total Protein 7.5 gm/dl (6.0-8.3)
--- NOTE | 2024-12-02 12:21 | XRay Report ---
XR foot LT min 3V routine CLINICAL HISTORY: l foot ulcer and wound COMPARISON: 06/28/2024 FINDINGS: There is osteopenia. There are atherosclerotic calcifications. No fracture or dislocation. No evidence of osteomyelitis. No radiopaque foreign body. IMPRESSION: No osteomyelitis seen. ACT 112: Negative or not required by law. Electronically signed by: Tarun Gutiérrez M.D. 12/02/2024 12:20 PM
[2024-12-02] MEDS ORDERED: HYDROmorphone INJ 0.5 MG/0.5 ML SYR IV PRN (15:32)
[2024-12-02] MEDS ORDERED: ALBUT/IPRATROP 3MG/0.5MG NEB 3 ML VIAL NEB PRN (15:32)
[2024-12-02] MEDS ORDERED: HYDROmorphone INJ 1 MG/ML SYRINGE IV PRN (15:32)
[2024-12-02] MEDS ORDERED: TRIAMCINOLONE ACET 0.1% CR 15 GM TUBE TOP PRN (15:32)
--- NOTE | 2024-12-02 16:41 | XRay Report ---
Clinical history: Pain 3 views of the abdomen were obtained Findings: There is moderate severity constipation. There is no definite sign of bowel obstruction. No renal or ureteral calculi are seen. No foreign body is evident. There is lumbar scoliosis. There is an extensive thoracic and lumbar fusion. There is a stimulator device in the right lower quadrant abdominal wall Impression: Constipation Electronically signed by Deshawn Verduzco 12-02-2024 4:41 PM
[2024-12-02] MEDS: GABAPENTIN 300 MG CAP PO SCH (17:56)
[2024-12-02] MEDS: glipiZIDE ER 2.5 MG TABCR PO SCH (17:56)
--- NOTE | 2024-12-02 18:28 | Billing Data ---
Date of Service December 02, 2024 Coding Level of Care Code 48547 INT INP/OBS CARE
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
--- NOTE | 2024-12-02 20:12 | Pharmacy Report ---
Pharmacy PK ABX Note - Date of Service December 02, 2024 - Assessment and Plan Assessment 74 year old F receiving Vancomycin for treatment of non-healing foot wound greater than 6 months. History of diabetes and osteomyelitis. Currently foot MRI ordered. Pertinent microbiologic data includes: foot wound growing MSSA and MRSE. Patient was recently on Linezolid and Bactrim outpatient therapy. Previously seems to have been on Doxycycline also. Day #1 of antimicrobial therapy. Plan Vancomycin * Loading dose: 1750 mg IV x 1 * Maintenance dose: 1500 mg IV every 24 hours * Regimen is predicted to achieve target AUC/FRED of 400-600 mg/L.hr * Random level ordered for: 7/5 with AM labs. Pharmacy will continue to follow and will adjust dose/frequency as necessary. Thank you. Pharmacy has transitioned to AUC monitoring for vancomycin. AUC/FRED is the preferred PK/PD target and is associated with decreased risk of nephrotoxicity compared to traditional trough targets.
[2024-12-02] MEDS: MAGNESIUM OXIDE 400 MG TAB PO SCH (20:49)
[2024-12-02] MEDS: CEFEPIME 2000MG 2,000 MG/20 ML SYR IV SCH (20:49)
[2024-12-02] MEDS: FAMOTIDINE 40 MG TABLET PO SCH (20:49)
[2024-12-02] MEDS: VANCOMYCIN HCL 1,500 MG in SODIUM CHLORIDE 0.9% 500 ML IV SCH (23:09)
[2024-12-03 07:35] LABS: Hematocrit (blood only) 33.8 % (37.0-47.0); Hemoglobin 10.7 g/dl (12.0-16.0); Mean Corpuscular Hemoglobin 28.5 pg (25.0-34.0); Mean Corpuscular Volume 90.1 fL (80.0-100.0); Platelet Count 276 K/uL (130-400); RDW Standard Deviation 52.1 fL (36.4-46.3); Red Blood Count 3.75 M/uL (4.20-5.40); White Blood Count 8.00 K/ul (4.8-10.8)
[2024-12-03 07:56] LABS: Creatinine Clr Calc Pharmacy 61.8 ml/min
--- NOTE | 2024-12-03 08:06 | Hospitalist Progress Note ---
Date of Service December 03, 2024 Assessment & Plan (1) Diabetic peripheral neuropathy associated with type 2 diabetes mellitus: (2) Acute leg pain: (3) Cellulitis: (4) Osteomyelitis of left foot: (5) Cerebrovascular disease: (6) Implantable intrathecal infusion pump present: (7) HERIBERTO (obstructive sleep apnea): Plan Patient is a 74yo F with PMHx of T2DM c/b peripheral neuropathy, CVA, GERD, HLD, HERIBERTO, and radiculopathies on morphine pump, who presents per referral of wound ca re clinic with chronic, non-healing ulcer of her left foot. Non-healing foot ulcer - Pt w/ L foot medial/plantar wound for >6 months. s/p excisional debridement on 07/01 and resection of osteomyelitis of sesamoid bone on 10/31. - Ddx includes Osteo as most likely, as well as diabetic foot dz, repeated trauma, vs PAD vs venous stasis - Wound culture from 11/11 grew MRSA. New culture obtained by wound clinic today 12/02 - Mild leukocytosis at 11.86. Trend CBC - X-ray foot demonstrated no osteomyelitis. Not the best imaging modality for this concern - foot MRI ordered MRI planned for Tuesday 12/05 If imaging results indicate need for surgical intervention, will consult podiatry - Given 1 dose each vanc + cefepime in ED; continue. Follow wound cx sensitivities - Wound care consulted, appreciate recs - For pain, Tylenol for mild, 0.5mg Dilaudid q3h prn for mod, and 1mg Dilaudid q3h prn for severe - Podiatry not formally consulted but aware and following patient's hospit alization; expect to be able to operate on Friday, if needed T2DM w/ neuropathy - most recent a1c on 11/09/24 was 7.3% - continue glipizide, metformin, gabapentin - bsg ACHS Radiculopathies / Pain pump - Intrathecal morphine pump palpable in right-middle abdomen - KUB ordered to confirm pump placement - Per remote broadcast technician recommendation, pain management consulted to manage pump after foot MRI - Continue home pain meds HTN - continue HCTZ GERD - continue pepcid, protonix STEPHEN/depression - continue duloxetine Diet: DM2 VTE ppx: lovenox Dispo: admit to med-surg, anticipate eventual discharge home Code: Full Admission and Anticipated Discharge Date Admission Date: December 02, 2024 Supervising Physician Co-Signing Physician Notes I personally examined the patient and verified all sims points of history and exam, discussed case, and agree with decision making with Dr Plata feeling ok foot still painful and swollen but pain probably a little better. Vitals noted, in general she is awake and alert pleasant no distress. HEENT normocephalic atraumatic mucous membranes moist. Left foot with ulceration on the plantar surface, not much surrounding erythema. A little bit of exudate. very similar to yesterday. MRI pending (apparently friday) Diabetic foot ulcerrefractorygiven the rest of the appearance of her foot and recent Dopplers, arterial disease is on the differential but seems reasonably low. I do worry about it being polymicrobial given that it is a diabetic foot infection and has been open for quite a whileso it is possible that is not getting better simply because of requiring adjusted/broader antibiotics (started), and certainly given recent osteomyelitis the biggest concern acutely would be if there is any surrounding infected bone that is keeping the infection going (MRI once it's able to be done). Continue to cover for MRSA and Pseudomonas for now. In discussion (12/02) with podiatry who knows her caseI agree that we will probably need to set up prolonged outpatient antibioticswant to obtain MRI data and follow her clinical course to ensure that there is nothing that requires recurrent surgery and to ensure that her situation is stable/improvingthen I would anticipate outpatient with a fairly long course of IV antibiotics. stable for now - sicne IV abx and MRI cannot be done yet, largely "stay the course" at this time Subjective Patient seen and examined at bedside chair this morning. Reports feeling well. Pain is currently tolerable. No FRAZIER, CP, SOB, abd pain, n/v/d, rash, weakness, dizziness. Discussed plan to get MRI of her foot and based on results, will just have CM arrange for IV abx at home or do that + have podiatry consulted for appropriate surgery. Patient understanding and accepting of plan and likely timeline, with need to stay over the weekend. Review of Systems Review of Systems: As per HPI. Physical Exam Physical Exam: Gen: NAD, WD/WN HEENT: NCAT, normal conjunctiva, anicteric sclera, MMM CV: RRR, no m/r/g, S1/S2 normal, no LE edema, pedal pulses intact Resp: CTAB, symmetrical chest rise, breathing non-labored Abd: Soft, NT/ND, +BS, morphine pump palpable RLQ MSK: Full ROM, normal str, no gross deformities on inspection Skin: Warm, dry, well-perfused; L foot with multiple ecchymoses on lateral a spect, healing ulcer on plantar surface of great toe, and wound on medial aspect that is covered with mostly-dry dressing and otherwise unchanged from prior exam Neuro: AOx3, CN II-XII grossly intact, str 5/5 x 4, no focal deficits Psych: Full, euthymic affect. Speech pace normal. Thoughts linear and goal- directed. Results & Data Results & Data Vital Signs (Past 12 Hours) Vital Signs Temp Pulse Resp BP Pulse Ox O2 Del Method 12/03/24 07:07 36.8 C 59 L 18 127/75 98 Room Air 12/02/24 20:27 36.8 C 79 16 147/68 H 96 Room Air Resident Activity Tracking Resident Involvement: Resident Care Provided Care Provided: Adult Hospital Medicine (2) Acute leg pain Laterality: left Qualified Code(s): M79.605 - Pain in left leg (3) Cellulitis Site of cellulitis: unspecified site Qualified Code(s): L03.90 - Cellulitis, unspecified (4) Osteomyelitis of left foot Osteomyelitis type: subacute Qualified Code(s): M86.272 - Subacute osteomyelitis, left ankle and foot
[2024-12-03] MEDS: ENOXAPARIN INJ 40 MG/0.4 ML SYR SQ SCH (08:26)
[2024-12-03] MEDS: VITAMIN B COMPLEX TAB PO SCH (08:31)
[2024-12-03] MEDS: MULTIVITAMIN TAB PO SCH (08:32)
[2024-12-03] MEDS: CELECOXIB 100 MG CAP PO SCH (08:32)
[2024-12-03] MEDS: hydroCHLOROthiazide 25 MG TAB PO SCH (08:32)
[2024-12-03] MEDS: CLOPIDOGREL BISULFATE 75 MG TAB PO SCH (08:32)
--- NOTE | 2024-12-03 15:44 | Billing Data ---
Date of Service December 03, 2024 Coding Level of Care Code 63260 SUB INP/OBS CARE
[2024-12-03] MEDS: PRAMIPEXOLE DIHYDROCHLO 0.25 MG TAB PO SCH (21:09)
[2024-12-04] MEDS: ACETAMINOPHEN 325 MG TAB PO PRN (05:34)
[2024-12-04 06:10] LABS: Hematocrit (blood only) 33.9 % (37.0-47.0); Hemoglobin 10.8 g/dl (12.0-16.0); Mean Corpuscular Hemoglobin 28.4 pg (25.0-34.0); Mean Corpuscular Volume 89.2 fL (80.0-100.0); Platelet Count 316 K/uL (130-400); RDW Standard Deviation 51.1 fL (36.4-46.3); Red Blood Count 3.80 M/uL (4.20-5.40); White Blood Count 7.27 K/ul (4.8-10.8)
[2024-12-04 06:25] LABS: Creatinine Clr Calc Pharmacy 69.6 ml/min
--- NOTE | 2024-12-04 07:33 | Hospitalist Progress Note ---
Date of Service December 04, 2024 Assessment & Plan (1) Diabetic peripheral neuropathy associated with type 2 diabetes mellitus: (2) Acute leg pain: (3) Cellulitis: (4) Osteomyelitis of left foot: (5) Cerebrovascular disease: (6) Implantable intrathecal infusion pump present: (7) HERIBERTO (obstructive sleep apnea): Plan Patient is a 74yo F with PMHx of T2DM c/b peripheral neuropathy, CVA, GERD, HLD, HERIBERTO, and radiculopathies on morphine pump, who presents per referral of wound ca re clinic with chronic, non-healing ulcer of her left foot. Non-healing foot ulcer Pt w/ L foot medial/plantar wound for >6 months. s/p excisional debridement on 07/01 and resection of osteomyelitis of sesamoid bone on 10/31. Ddx includes Osteo as most likely, as well as diabetic foot dz, repeated trauma, vs PAD vs venous stasis Wound culture from 11/11 grew MRSA. New culture obtained by wound clinic today 12/02 X-ray foot demonstrated no osteomyelitis. Not the best imaging modality for this concern - foot MRI ordered MRI planned for Tuesday 12/05 If imaging results indicate need for surgical intervention, will consult podiatry Wound culture + MSSA - given lonstanding infection will continue cefepime, switch vanc to dapto Wound care consulted, appreciate recs For pain, Tylenol for mild, 0.5mg Dilaudid q3h prn for mod, and 1mg Dilaudid q3h prn for severe Podiatry not formally consulted but aware and following patient's hospitalization; expect to be able to operate on Friday, if needed T2DM w/ neuropathy most recent a1c on 11/09/24 was 7.3% continue glipizide, metformin, gabapentin bsg ACHS Radiculopathies / Pain pump Intrathecal morphine pump palpable in right-middle abdomen KUB ordered to confirm pump placement Per technical sme recommendation, pain management consulted to manage pump after foot MRI Continue home pain meds HTN - continue HCTZ GERD - continue pepcid, protonix STEPHEN/depression - continue duloxetine Diet: DM2 VTE ppx: lovenox Dispo: admit to med-surg, anticipate eventual discharge home Code: Full Admission and Anticipated Discharge Date Admission Date: December 02, 2024 Supervising Physician Co-Signing Physician Notes I personally examined the patient and verified all sims points of history and exam, discussed case, and agree with decision making with Dr Plata feels about the same. No new issues. Vitals noted, in general she is awake and alert pleasant no distress. HEENT normocephalic atraumatic mucous membranes moist. Foot dressed, dressing left in place, dull resolving erythema and edema on foot, no tracking erythema, no exudate. Diabetic foot ulcerrefractorygiven the rest of the appearance of her foot and recent Dopplers, arterial disease is on the differential but seems reasonably low. I do worry about it being polymicrobial given that it is a diabetic foot infection and has been open for quite a whileso it is possible that is not getting better simply because of requiring adjusted/broader antibiotics (started), and certainly given recent osteomyelitis the biggest concern acutely would be if there is any surrounding infected bone that is keeping the infection going (MRI once it's able to be done). Continue to cover for MRSA and Pseudomonas for now. Discussed with clinical pharmacy I doubt that her cultures are really indicative of causative bacteriaas I strongly suspect this is polymicrobial. In discussion (12/02) with podiatry who knows her caseI agree that we will probably need to set up prolonged outpatient antibioticswant to obtain MRI data and follow her clinical course to ensure that there is nothing that requires recurrent surgery and to ensure that her situation is stable/improvingthen I would anticipate outpatient with a fairly long course of IV antibiotics. stable for now - sicne IV abx and MRI cannot be done yet, largely "stay the course" at this time Subjective Patient seen and evaluated at bedside this morning. No acute events overnight. Overall pain well controlled. MRI pending for tomorrow. Vitals noted. Labs WNL. No acute complaints this am Review of Systems Review of Systems: reviewed, per HPI Physical Exam Physical Exam: Constitutional: well-appearing, no acute distress HEENT: NCAT, no conjunctival injection CV: regular rhythm, no murmur appreciated, extremities well-perfused, no LE edema Resp: CTABL, no wheezes/rales/rhonchi appreciated, no increased work of breathing GI: soft, nondistended, nontender, BS normoactive MSK: no gross deformities appreciated Skin: L foot wound wrapped Neuro: alert, oriented, no focal neurologic deficit appreciated Results & Data Results & Data Vital Signs (Past 12 Hours) Vital Signs Temp Pulse Resp BP Pulse Ox O2 Del Method 12/04/24 07:08 36.8 C 66 16 124/77 97 Room Air 12/03/24 20:10 36.5 C 77 12 123/73 95 Room Air Resident Activity Tracking Resident Involvement: Resident Care Provided Care Provided: Adult Hospital Medicine (2) Acute leg pain Laterality: left Qualified Code(s): M79.605 - Pain in left leg (3) Cellulitis Site of cellulitis: unspecified site Qualified Code(s): L03.90 - Cellulitis, unspecified (4) Osteomyelitis of left foot Osteomyelitis type: subacute Qualified Code(s): M86.272 - Subacute osteomyelitis, left ankle and foot
--- NOTE | 2024-12-04 17:00 | Billing Data ---
Date of Service December 04, 2024 Coding Level of Care Code 95087 SUB INP/OBS CARE MIN
[2024-12-04] MEDS: PRAMIPEXOLE DIHYDROCHLO 0.5 MG TAB PO SCH (17:03)
[2024-12-04] MEDS: CEFEPIME 2000MG 2,000 MG/20 ML SYR IV SCH (20:31)
[2024-12-05 07:41] LABS: Hematocrit (blood only) 36.5 % (37.0-47.0); Hemoglobin 11.5 g/dl (12.0-16.0); Mean Corpuscular Hemoglobin 28.3 pg (25.0-34.0); Mean Corpuscular Volume 89.7 fL (80.0-100.0); Platelet Count 308 K/uL (130-400); RDW Standard Deviation 51.9 fL (36.4-46.3); Red Blood Count 4.07 M/uL (4.20-5.40); White Blood Count 5.91 K/ul (4.8-10.8)
--- NOTE | 2024-12-05 07:42 | Hospitalist Progress Note ---
Date of Service December 05, 2024 Assessment & Plan (1) Diabetic peripheral neuropathy associated with type 2 diabetes mellitus: (2) Acute leg pain: (3) Cellulitis: (4) Osteomyelitis of left foot: (5) Cerebrovascular disease: (6) Implantable intrathecal infusion pump present: (7) HERIBERTO (obstructive sleep apnea): Plan Patient is a 74yo F with PMHx of T2DM c/b peripheral neuropathy, CVA, GERD, HLD, HERIBERTO, and radiculopathies on morphine pump, who presents per referral of wound ca re clinic with chronic, non-healing ulcer of her left foot. Non-healing foot ulcer Pt w/ L foot medial/plantar wound for >6 months. s/p excisional debridement on 07/01 and resection of osteomyelitis of sesamoid bone on 10/31. Ddx includes Osteo as most likely, as well as diabetic foot dz, repeated trauma, vs PAD vs venous stasis Wound culture from 11/11 grew MRSA. New culture obtained by wound clinic today 12/02 X-ray foot demonstrated no osteomyelitis. Not the best imaging modality for this concern - foot MRI ordered MRI planned for Tuesday 12/05 If imaging results indicate need for surgical intervention, will consult podiatry Wound culture + MSSA - given lonstanding infection will continue cefepime, switch vanc to dapto PICC line placement today Wound care consulted, appreciate recs For pain, Tylenol for mild, 0.5mg Dilaudid q3h prn for mod, and 1mg Dilaudid q3h prn for severe Podiatry not formally consulted but aware and following patient's hospitalization; expect to be able to operate on Friday, if needed T2DM w/ neuropathy most recent a1c on 11/09/24 was 7.3% continue glipizide, metformin, gabapentin bsg ACHS Radiculopathies / Pain pump Intrathecal morphine pump palpable in right-middle abdomen KUB ordered to confirm pump placement Per truck engine technician recommendation, pain management consulted to manage pump after foot MRI Continue home pain meds HTN - continue HCTZ GERD - continue pepcid, protonix STEPHEN/depression - continue duloxetine Diet: DM2 VTE ppx: lovenox Dispo: admit to med-surg, anticipate eventual discharge home Code: Full Admission and Anticipated Discharge Date Admission Date: December 02, 2024 Supervising Physician Co-Signing Physician Notes I personally examined the patient and verified all sims points of history and exam, discussed case, and agree with decision making with Dr Garcia feels about the same. No new issues. Vitals noted, in general she is awake and alert pleasant no distress. HEENT normocephalic atraumatic mucous membranes moist. no pallor or icterus. breathing unlabored no accessory muscles good effort. Diabetic foot ulcerrefractorygiven the rest of the appearance of her foot and recent Dopplers, arterial disease is on the differential but seems reasonably low. I do worry about it being polymicrobial given that it is a diabetic foot infection and has been open for quite a whileso it is possible that is not getting better simply because of requiring adjusted/broader antibiotics (on dapto and cefepime and in d/w wound team we all feel she would benefit from prolonged course of IV), and certainly given recent osteomyelitis the biggest concern acutely would be if there is any surrounding infected bone that is keeping the infection going (MRI once it's able to be done - reportedly tonight). Continue to cover for MRSA and Pseudomonas given high concern on poly microbial. Discussed with clinical pharmacy I doubt that her cultures are really indicative of causative bacteriaas I strongly suspect this is polymicrobial. PICC ordered, Rx for abx given to case management. after MRI if anything surgical identified then would consult podiatry (Royal Plunkett) and make NPO; if nothing surgical then home as soon as IV abx can be set up, then outpt wound f/u Subjective Patient seen and evaluated at bedside this morning. No acute events overnight. Pain overall doing well. VSS. Labs stable. Plan for MRI today. Will place PICC today in anticipation of dc on IV abx. Consent obtained and in chart. Review of Systems Review of Systems: reviewed, per HPI Physical Exam Physical Exam: Constitutional: well-appearing, no acute distress HEENT: NCAT, no conjunctival injection CV: regular rhythm, no murmur appreciated, extremities well-perfused, no LE edema Resp: CTABL, no wheezes/rales/rhonchi appreciated, no increased work of breathing GI: soft, nondistended, nontender, BS normoactive MSK: no gross deformities appreciated Skin: L foot wound wrapped Neuro: alert, oriented, no focal neurologic deficit appreciated Resident Activity Tracking Resident Involvement: Resident Care Provided Care Provided: Adult Hospital Medicine (2) Acute leg pain Laterality: left Qualified Code(s): M79.605 - Pain in left leg (3) Cellulitis Site of cellulitis: unspecified site Qualified Code(s): L03.90 - Cellulitis, unspecified (4) Osteomyelitis of left foot Osteomyelitis type: subacute Qualified Code(s): M86.272 - Subacute o steomyelitis, left ankle and foot
[2024-12-05 07:56] LABS: Creatinine Clr Calc Pharmacy 75.9 ml/min
[2024-12-05] MEDS: DAPTOmycin 350 MG in SYRINGE 0 ML IV SCH (08:11)
--- NOTE | 2024-12-05 13:28 | Billing Data ---
Date of Service December 05, 2024 Coding Level of Care Code 28503 SUB INP/OBS CARE MIN
--- NOTE | 2024-12-06 02:46 | Magnetic Resonance Report ---
Exam(s): MRI LEFT FOOT Without Contrast EXAM: MR Left Lower Extremity Without Intravenous Contrast, Foot CLINICAL HISTORY: Reason for exam: suspect osteo. TECHNIQUE: Multiplanar magnetic resonance images of the left foot without intravenous contrast. COMPARISON: X-rays dated 12/02/2024. FINDINGS: There is soft tissue swelling and edema. Bony structures are intact. No evidence of acute fracture or dislocation. There are hypertrophic degenerative changes. There is signal abnormality noted in the first metatarsal and the first proximal phalanx. IMPRESSION: There is soft tissue edema and swelling. Signal abnormality in the first metatarsal and first proximal phalanx may represent osteomyelitis. Electronically signed by: Luca Iverson MD 12/06/24 02:45 AM
--- NOTE | 2024-12-06 07:30 | Hospitalist Progress Note ---
Date of Service December 06, 2024 Assessment & Plan (1) Diabetic peripheral neuropathy associated with type 2 diabetes mellitus: (2) Osteomyelitis of left foot: (3) Cerebrovascular disease: (4) Implantable intrathecal infusion pump present: (5) HERIBERTO (obstructive sleep apnea): Plan Patient is a 74yo F with PMHx of T2DM c/b peripheral neuropathy, CVA, GERD, HLD, HERIBERTO, and radiculopathies on morphine pump, who presents per referral of wound care clinic with chronic, non-healing ulcer of her left foot. Non-healing foot ulcer Pt w/ L foot medial/plantar wound for >6 months. s/p excisional debridement on 07/01 and resection of osteomyelitis of sesamoid bone on 10/31. Ddx includes Osteo as most likely, as well as diabetic foot dz, repeated trauma, vs PAD vs venous stasis Wound culture from 11/11 grew MRSA. New culture obtained by wound clinic today 12/02 X-ray foot demonstrated no osteomyelitis. Not the best imaging modality for this concern - foot MRI ordered MRI completed on 12/05 showed indications of osteomyelitis at left 1st metatarsal and proximal phalanx Podiatry consulted Continue IV cefepime and dapto PICC line unable to be placed on 12/05. WIll await further direction of plan of care following podiatry consult on 12/06 Wound care consulted, appreciate recs Pain control with Tylenol for mild, 0.5mg Dilaudid q3h prn for mod, and 1mg Dilaudid q3h prn for severe T2DM w/ neuropathy most recent a1c on 11/09/24 was 7.3% continue glipizide, metformin, gabapentin bsg ACHS Radiculopathies / Pain pump Intrathecal morphine pump palpable in right-middle abdomen KUB ordered to confirm pump placement Per technician trainee recommendation, pain management consulted to manage pump after foot MRI Continue home pain meds HTN - continue HCTZ GERD - continue pepcid, protonix STEPHEN/depression - continue duloxetine Diet: DM2 VTE ppx: lovenox Dispo: admit to med-surg, anticipate eventual discharge home Code: Full Admission and Anticipated Discharge Date Admission Date: December 02, 2024 Supervising Physician Co-Signing Physician Notes Attending attestation Pt seen and examined in concert with Dr. Salazar. In agreement with the documented findings as noted in the resident documentation with any exceptions or additions as noted here. Resting comfortably in chair at bedside without acute complaint. VS as noted. On examination, S1/S2 nl RRR no MCG. CTAB. Abd NT/ND BS+ve Osteomyelitis - obtain IV access or midline for ongoing management based on available access pending podiatry evaluation of patient this evening. Else see resident documentation as noted. Subjective Pt reports improvement in left foot swelling. She continues with pain when walking, but pain is tolerable. Pt denies CP, SOB, N/V/C/D, dizziness or headaches Review of Systems Review of Systems: reviewed, per HPI Physical Exam Physical Exam: Constitutional: well-appearing, no acute distress HEENT: NCAT, no conjunctival injection CV: regular rhythm, no murmur appreciated, extremities well-perfused, no LE edema Resp: CTABL, no wheezes/rales/rhonchi appreciated, no increased work of breathing GI: soft, nondistended, nontender, BS normoactive MSK: no gross deformities appreciated Skin: L foot wound wrapped. No drainage noted on bandages Neuro: alert, oriented, no focal neurologic deficit appreciated Results & Data Results & Data Vital Signs (Past 12 Hours) Vital Signs Temp Pulse Resp BP Pulse Ox O2 Del Method 12/05/24 21:44 36.3 C L 77 14 146/72 H 95 Room Air Resident Activity Tracking Resident Involvement: Resident Care Provided Care Provided: Adult Hospital Medicine (2) Osteomyelitis of left foot Osteomyelitis type: subacute Qualified Code(s): M86.272 - Subacute osteomyelitis, left ankle and foot
[2024-12-06 08:14] LABS: Hematocrit (blood only) 35.7 % (37.0-47.0); Hemoglobin 11.6 g/dl (12.0-16.0); Mean Corpuscular Hemoglobin 28.9 pg (25.0-34.0); Mean Corpuscular Volume 88.8 fL (80.0-100.0); Platelet Count 381 K/uL (130-400); RDW Standard Deviation 51.5 fL (36.4-46.3); Red Blood Count 4.02 M/uL (4.20-5.40); White Blood Count 6.82 K/ul (4.8-10.8)
[2024-12-06 08:31] LABS: Anion Gap 8.0 (3-11); Blood Urea Nitrogen 18.0 mg/dl (6-23); Calcium 9.6 mg/dl (8.6-10.3); Carbon Dioxide 29.0 mmol/L (21-32); Chloride 102.0 mmol/L (98-107); Creatinine Clr Calc Pharmacy 79.5 ml/min; Glucose 107.0 mg/dl (70-99(Fasting)); Potassium 3.8 mmol/L (3.5-5.1); Sodium 139.0 mmol/L (136-145)
[2024-12-06] MEDS: SODIUM CHLORIDE 0.9% 1,000 ML IV SCH (20:18)
[2024-12-06] MEDS ORDERED: MICONAZOLE NITRATE POWDER 85 GM EXT PRN (20:28)
--- NOTE | 2024-12-06 22:55 | Podiatry Consultation ---
Date of Consultation December 06, 2024 Assessment & Plan (1) Osteomyelitis of left foot: Osteomyelitis type: subacute Qualified Code(s): M86.272 - Subacute osteomyelitis, left ankle and foot (2) Chronic ulcer of left foot with fat layer exposed: (3) Diabetic foot ulcer: Diabetes mellitus type: type 2 Diabetic foot ulcer location: midfoot Laterality: left Non-pressure ulcer stage: unspecified non-pressure ulcer stage Qualified Code(s): E11.621 - Type 2 diabetes mellitus with foot ulcer; L97.429 - Non-pressure chronic ulcer of left heel and midfoot with unspecified severity (4) Diabetic peripheral neuropathy associated with type 2 diabetes mellitus: Plan Patient examined and evaluated. We discussed at length treatment options moving forward, most notably 6-8 weeks of IV antibiotics versus 1st ray resection. We discussed that surgery would be the more definitive approach, though clear proximal margins may still be difficult to obtain within the 1st metatarsal so involved on MR imaging. With Dr. Plunkett returning to [facility] tomorrow or , we will work on planning definitive care with him moving forward. With him more recently performing surgery, he likely has the best understanding of how involved/infected the MTPJ was clinically. Patient is currently leaning towards amputation, though wants to delay this until , if possible, to arrange her thoughts and care. We will continue to follow for now. History of Present Illness Reason for Consultation: Left foot osteomyelitis Attending Physician: Cain Vallejo MD History of Present Illness Patient seen at bedside. She is known to our service from prior care over the years, but we have not seen her recently, having transferred care to the [facility] time study engineer. She recently underwent a sesamoidectomy with relative initial success in closing her plantar ulceration. Now, she has developed worsening infection with exposed tendon deep to the wound, worsening drainage, redness, and pain. The wound care center sent her for admission late last week. She was scheduled to meet with ID outpatient tomorrow, but with this admission, she cancelled that appointment. She was tentatively ready to begin IV antibiotics. She has been under the care of Dr. Plunkett for this recent wound care and surgical intervention, though he was out this weekend, with me taking call. Patient currently denies any systemic signs of infection and feels better with IV antibiotics on this admission. Allergies Allergy/AdvReac Type Severity Reaction Status Date / Time cefuroxime AdvReac Intermediate upset Verified 12/02/24 08:47 stomach prochlorperazine AdvReac Intermediate Confusion Verified 12/02/24 08:47 [From Compazine] Home Medications Medication Instructions Recorded Confirmed Type glipizide 2.5 mg tablet, extended 2.5 mg PO BID 06/05/20 12/02/24 History release 24 hr metformin 1,000 mg tablet 1,000 mg PO BID 06/05/20 12/02/24 History pantoprazole 40 mg tablet,delayed 40 mg PO QAM 06/05/20 12/02/24 History release gabapentin 300 mg capsule 900 mg PO TID 08/07/20 12/02/24 History multivitamin 1 tab PO QAM 08/28/22 12/02/24 History triamcinolone acetonide 0.1 % 1 applic topical DAILY PRN dry legs 07/01/23 12/02/24 History topical cream acetaminophen 325 mg tablet 650 mg (2 x 325 mg) PO Q4H PRN 07/04/23 12/02/24 Rx pain #30 tabs magnesium 250 mg tablet 250 mg PO HS #30 tabs 07/04/23 12/02/24 Rx guaifenesin 600 mg tablet, 1,200 mg PO Q12 PRN Congestion 10/30/23 12/02/24 H istory extended release 12 hr (Mucinex) duloxetine 60 mg capsule,delayed 60 mg PO QAM 03/25/24 12/02/24 History release (Cymbalta) famotidine 40 mg tablet 40 mg PO QPM 05/06/24 12/02/24 History hydrochlorothiazide 25 mg tablet 25 mg PO QAM 05/06/24 12/02/24 History celecoxib 100 mg capsule (Celebrex) 100 mg PO QAM 07/21/24 12/02/24 History clopidogrel 75 mg tablet (Plavix) 75 mg PO QAM 07/21/24 12/02/24 History vitamin B complex 1 cap PO DAILY 11/08/24 12/02/24 History oxycodone-acetaminophen 5 mg-325 1 tab PO Q6H PRN pain #20 tabs 11/11/24 12/02/24 Rx mg tablet (Endocet) ipratropium 0.5 mg-albuterol 3 mg 3 ml NEB Q4R PRN shortness of 11/15/24 12/02/24 Rx (2.5 mg base)/3 mL nebulization breath #90 mL soln linezolid 600 mg tablet 600 mg PO BID #10 tabs 11/15/24 12/02/24 Rx sulfamethoxazole 400 1 tab PO BID #14 tabs 11/26/24 12/02/24 Rx mg-trimethoprim 80 mg tablet (Bactrim) pramipexole 0.25 mg tablet 0.25 mg PO HS RLS 12/03/24 12/03/24 History pramipexole 0.5 mg tablet 0.5 mg PO 1700 RLS 12/03/24 12/03/24 History Patient History Medical History Chronic SI joint pain Cerebrovascular disease Basilar artery stenosis Hx of respiratory failure (10/2023) Ambulatory dysfunction uses walker Wheezing History of DVT (deep vein thrombosis) Early (was hit by a board/bat to leg and developed clot) Diabetic peripheral neuropathy Hyperlipidemia Fatty liver Diabetes mellitus, type 2 Lumbar spinal stenosis Anxiety and depression Hypertension Degenerative disc disease Walker as ambulation aid Implantable intrathecal infusion pump present Containing hydromorphone Diarrhea History of pneumonia PNA annually (no current/recent dx) Reason for albuterol neb + inhaler PRN per patient Sleep apnea No device Chronic ulcer of left foot Follows with [place] [facility] Carotid stenosis Neck CTA 05/2024: The carotid arteries are without hemodynamically significant stenosis although there is again noted to be approximately 60% stenosis of the internal carotid artery on the left. Reason for Plavix per patient History of COVID-19 (04/2020) [facility] hospitalization, "resolved" Hx of gout GERD (gastroesophageal reflux disease) Restless leg syndrome History of kidney stones Surgical History Status post insertion of intrathecal pump (09/03/22) History of incision and drainage (07/01/24) Left foot wound debridement, [facility] History of back surgery 4 back surgeries total, most recent 2020 History of esophagogastroduodenoscopy (EGD) History of colonoscopy (07/28/24) [facility] History of tooth extraction H/O varicose vein ligation and stripping Saphenous vein History of open reduction and internal fixation (ORIF) procedure Right ankle History of section x3 History of herniorrhaphy Repair of incarcerated incisional hernia with Surgimesh 10cm in diameter resection of incarcerated omentum (2014) History of appendectomy Laparoscopic (2012) Family History Mother , age 77 of heart issues Osteoporosis Heart disease Cancer Hypertension Brother Diabetes Family history of diabetes mellitus Daughter Cervical cancer Father , Patient age 91 with Parkinson's disease Parkinsons Other No family history of adverse response to anesthesia Denies family history of Ovarian cancer Breast cancer Colorectal cancer Stroke Asthma Social History Smoking Status: Never smoker Second Hand Exposure: No; Do You Dip or Chew Tobacco: No; Hx Alcohol Use: No Hx Substance Use: No Preferred Language: Thai Communication Ability: Effective Visual Impairment: Limited Hearing Ability: Normal Research And Development Manager Required: No Beliefs That Will Affect Care: None marital status: Current Living Situation: Spouse current occupational status: retired current occupation: Retired age 65 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 Feels Safe at Home: Yes Diet: regular Dental Care, Regularly: Yes Physical Activity Frequency: Does not Exercise Assistive Devices: Cane, Stair Lift and Walker Review of Systems Constitutional: no fever, no chills and no fatigue Eyes: no problem reported Ear, Nose, Mouth, Throat: no problem reported Respiratory: no problem reported Cardiovascular: + edema; no problem reported Gastrointestinal: no nausea, no vomiting and no problem reported Genitourinary: no problem reported Musculoskeletal: no problem reported Integumentary: + skin ulcer, + wounds and + erythema Neurologic: + loss of sensation, + numbness and + pa resthesia; no generalized weakness Psychiatric: no problem reported Physical Exam Physical Exam: Lower extremity focused exam: DP/PT pulses nonpalpable. CFT brisk to digits. Skin thin, atrophic. Nails 1-5 b/l dystrophic. Cellulitis to left lower extremity is noted, all distal to proximal extent margin previously noted. Ulceration is noted sub 1st MTPJ, neuropathic in origin. This is now along the medial aspect of the prior sesamoidectomy surgical site. Overlying hyperkeratotic skin is minimal, small on the surface, measuring 2x0.8cm and crescent shaped. On probing, it still extends to the underlying 1st metatarsal. No medhat purulence. No active bleeding on probing/clinical exam. Constitutional: WD/WN, vitals as above + ill appearing and + obese Eyes: PERRL, conjunctivae normal, anicteric sclerae ENMT: external ear and nose normal, oropharynx normal Neck: trachea midline, no thyromegaly normal visual inspection Respiratory: normal respiratory effort; no respiratory distress Cardiovascular: Rate/Rhythm: regular rate and regular rhythm Vessels: + posterior tibial pulses abnormal and + dorsalis pedis pulses abnormal Extremities: normal capillary refill Arterial doppler reviewed; suggestive of more proximal inflow disease with adequate bloodflow noted to foot/ankle b/l. Chest (Breasts): Chest: normal inspection of chest Gastrointestinal (Abdomen): Inspection/Auscultation: abdomen normal to inspection Percussion/Palpation: + abdomen tender and abdomen soft Musculoskeletal: no cyanosis or clubbing, extremities motor strength 5/5 Head/Neck/Chest: normocephalic and head atraumatic Extremities: extremities normal to inspection Skin: + ulcer, + wound, + skin atrophy, + eryt diamond and + nails dystrophic Neurologic: awake; + abnormal touch/pain/proprioception, + abnormal sensation to monofilament and no focal motor deficits Psychiatric: A+Ox3, euthymic affect Results & Data Vital Signs (Past 12 Hours) Vital Signs Temp Pulse Resp BP BP Pulse Ox O2 Del Method 12/06/24 20:48 36.8 C 79 18 127/82 95 Room Air 12/06/24 15:02 36.4 C L 71 16 152/77 H 100 Room Air Diagnostic Findings MR imaging is highly suggestive of continued/worsening osteomyelitis of the 1st metatarsal. Ulceration still extends directly to the medial 1st metatarsal head.
[2024-12-07] MEDS ORDERED: Nursing to Pharmacy Communication SCH (02:30)
[2024-12-07 06:36] LABS: Hematocrit (blood only) 36.1 % (37.0-47.0); Hemoglobin 11.4 g/dl (12.0-16.0); Mean Corpuscular Hemoglobin 28.2 pg (25.0-34.0); Mean Corpuscular Volume 89.4 fL (80.0-100.0); Platelet Count 369 K/uL (130-400); RDW Standard Deviation 52.4 fL (36.4-46.3); Red Blood Count 4.04 M/uL (4.20-5.40); White Blood Count 5.97 K/ul (4.8-10.8)
--- NOTE | 2024-12-07 07:15 | Hospitalist Progress Note ---
Date of Service December 07, 2024 Assessment & Plan (1) Diabetic peripheral neuropathy associated with type 2 diabetes mellitus: (2) Osteomyelitis of left foot: (3) Cerebrovascular disease: (4) Implantable intrathecal infusion pump present: (5) HERIBERTO (obstructive sleep apnea): Plan Patient is a 74yo F with PMHx of T2DM c/b peripheral neuropathy, CVA, GERD, HLD, HERIBERTO, and radiculopathies on morphine pump, who presents per referral of wound care clinic with chronic, non-healing ulcer of her left foot. Non-healing foot ulcer Pt w/ L foot medial/plantar wound for >6 months. s/p excisional debridement on 07/01 and resection of osteomyelitis of sesamoid bone on 10/31. Ddx includes Osteo as most likely, as well as diabetic foot dz, repeated trauma, vs PAD vs venous stasis Wound culture from 11/11 grew MRSA. Culture obtained by wound clinic on 12/02 grew S. aureus X-ray foot demonstrated no osteomyelitis. Not the best imaging modality for this concern - foot MRI ordered MRI completed on 12/05 showed indications of osteomyelitis at left 1st metatarsal and proximal phalanx Podiatry consulted and recommends Surgical intervention for source control and vascular consult prior to scheduling procedure. Vascular consult pending Continue IV cefepime and dapto Wound care consulted, appreciate recs Pain control with Tylenol for mild, 0.5mg Dilaudid q3h prn for mod, and 1mg Dilaudid q3h prn for severe T2DM w/ neuropathy most recent a1c on 11/09/24 was 7.3% continue glipizide, metformin, gabapentin bsg ACHS Radiculopathies / Pain pump Intrathecal morphine pump palpable in right-middle abdomen KUB ordered to confirm pump placement Per mineral technologist recommendation, pain management consulted to manage pump after foot MRI Continue home pain meds HTN - continue HCTZ GERD - continue pepcid, protonix STEPHEN/depression - continue duloxetine Diet: DM2 VTE ppx: lovenox Dispo: admit to med-surg, anticipate eventual discharge home Code: Full Admission and Anticipated Discharge Date Admission Date: December 02, 2024 Supervising Physician Co-Signing Physician Notes Attending attestation Pt seen and examined in concert with Dr. Salazar. In agreement with the documented findings as noted in the resident documentation with any exceptions or additions as noted here. Resting comfortably in chair at bedside without acute complaint. VS as noted. On examination, S1/S2 nl RRR no MCG. CTAB. Abd NT/ND BS+ve Osteomyelitis - continue cefepime and daptomycin. Per podiatry recommendation, will consult vascular surgery for appropriate intervention re: source control. Patient and spouse with questions re: course of care reviewed re: interest in resection, recovery and support. Else see resident documentation as noted. Subjective Pt reports improvement in left foot swelling She continues with pain when walking, but pain is tolerable. Pt reports meeting with podiatry last night and again this morning. Pt has decided Pt denies CP, SOB, N/V/C/D, dizziness or headaches Review of Systems Review of Systems: reviewed, per HPI Physical Exam Physical Exam: Constitutional: well-appearing, no acute distress HEENT: NCAT, no conjunctival injection CV: regular rhythm, no murmur appreciated, extremities well-perfused, no LE edema Resp: CTABL, no wheezes/rales/rhonchi appreciated, no increased work of breathing GI: soft, nondistended, nontender, BS normoactive MSK: no gross deformities appreciated Skin: L foot wound wrapped. No drainage noted on bandages Neuro: alert, oriented, no focal neurologic deficit appreciated Results & Data Results & Data Vital Signs (Past 12 Hours) Vital Signs Temp Pulse Resp BP Pulse Ox O2 Del Method 12/06/24 20:48 36.8 C 79 18 127/82 95 Room Air 12/06/24 20:10 Room Air Resident Activity Tracking Resident Involvement: Resident Care Provided Care Provided: Adult Hospital Medicine (2) Osteomyelitis of left foot Osteomyelitis type: subacute Qualified Code(s): M86.272 - Subacute osteomyelitis, left ankle and foot
--- NOTE | 2024-12-07 09:45 | Podiatry Progress Note ---
Date of Service December 07, 2024 Assessment & Plan (1) Osteomyelitis of left foot: (2) Chronic ulcer of left foot with fat layer exposed: (3) Diabetic foot ulcer: Plan Left foot infection: Cellulitis, osteomyelitis, Diabetic foot ulcer, s/p tibial sesmoidectomy - Longstanding diabetic ulcer with confirmed osteomyelitis of the tibial sesamoid and nonhealing wound - Likely secondary to continued infection versus peripheral vascular disease - Recommended more definitive treatment of partial first ray amputation - Discussed treatment options at length, including extended course of i.v. antibiotics and wound care versus partial first ray amputation - Patient leaning towards the more definitive treatment option of partial first ray amputation but would like to discuss with her prior to moving forward - Order placed for CRP, ESR, and procalcitonin tests - Consultation with vascular surgery to be arranged for recommendations prior to any definitive surgical procedure on the left foot. I returned the patient's room to continue discussion with and Dr. Hampton present for discussion. Patient would like to move forward with partial first ray amputation left foot for treatment of osteomyelitis and diabetic foot ulcer with nonhealing surgical wound. Patient's case is added onto the OR schedule at 8:45 AM 12/09/2024. N.p.o. at midnight Friday. Discussed postoperative expectations management at length with patient. Patient okay to continue weightbearing as tolerated for now however following partial first ray amputation she will be nonweightbearing to the left lower extremity until Friday. Will have patient fit with cam walker while in house prior to discharge to left lower extremity. Patient will continue weightbearing for short distance and transfer in the cam walker until she receives diabetic shoe gear from the diabetic foot clinic as an outpatient. We discussed antibiotic therapy postoperative reviewing how pathology and culture results from the procedure will influence her decision on antibiotic route, choice and duration. Admission and Anticipated Discharge Date Admission Date: December 02, 2024 Subjective The patient is a 74-year-old female with a past medical history significant for type 2 diabetes with diabetic peripheral neuropathy, CVA, GERD, hyperlipidemia, HERIBERTO, and radiculopathies on a morphine pump. 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 She underwent a tibial sesamoidectomy on 11/11/2024 for treatment of a nonhealing wound subleft first second metatarsal head diabetic wound for several months. The tibial sesamoid was sent for pathology and was positive for osteomyelitis. Following the tibial sesamoidectomy, she was hospitalized from 11/14/2024 to 11/15/2024 for treatment of pneumonia. During this hospitalization, intraoperative cultures returned growing Staph aureus and Staph epidermidis. Staph epidermidis had multiple resistances; however, it was susceptible to linezolid, and she was discharged on a 5-day oral course of linezolid. During her recovery, she experienced some level of trauma to the left foot without reporting any history of trauma, resulting in significant ecchym osis to multiple locations on the lateral and plantar foot. She was seen in follow-up at the wound care center on 11/26/2024, where sutures were removed, noting some superficial dehiscence along the incision line and periwound erythema and edema. She was transitioned to oral Bactrim for a 7-day course, which she completed without incident. She followed up in the wound care center on 12/02/2024 with further dehiscence and tendon exposure at the incision site and was referred to the emergency department for further workup. Repeat MRI on 12/05/2024 showed soft tissue edema and swelling and signal abnormality in the first metatarsal and first proximal phalanx, which may represent osteomyelitis. She was initiated on IV vancomycin and cefepime in the emergency department. Repeat wound cultures were collected, which have grown Staph aureus. On admission, her white blood count was slightly elevated at 11.86, which has now improved to 5.97. Order placed for ESR, CRP, and procalcitonin. ESR is elevated at 85, CRP slightly elevated at 1.17, and procalcitonin remains within normal limits at 0.07. Clinically, the left foot wound is evaluated. There is mild erythema and edema to the left foot with resolving ecchymosis to the lateral and plantar foot. The diabetic ulceration subfirst metatarsal head continues to decrease in dimensions. The incision site from tibial sesamoidectomy is unfortunately dehisced full thickness and necrotic tissue to the wound bed, scant purulent drainage on compression of the foot. On probing of this area with a sterile stainless steel pickup, the wound probes to the first MPJ and first metatarsal head, which is quite soft on palpation consistent with osteomyelitis. No lymphangitis or streaking. She reports significant pain in the left foot for the week prior to admission; however, since admission, she notes decreased redness, swelling, and pain in the left foot. Noninvasive vascular studies on 06/28/2024 showing no evidence of occlusive disease or hemodynamically significant stenosis of the left lower extremity. There is scattered plaque identified throughout. Mild to moderate stenosis is suspected at the popliteal trifurcation and within the dorsalis pedis artery where velocity elevation is in excess of 200 cm/s. She has discussed options for intervention treatment of left foot infection with her family including an extended course of IV antibiotics and wound care versus partial first ray amputation and is leaning towards the more definitive treatment option of partial first ray amputation. Review of Systems Review of Systems: Negative for nausea, vomiting, fever, chills, shortness of breath, or chest pain. Physical Exam Physical Exam: Const: Appears well developed and well nourished. No signs of acute distress present. CV: Extremities: No cyanosis or edema. Capillary refill time is less than 2 seconds all digits of the bilateral foot. Posterior tibial and dorsalis pedis pulses are lightly to non palpable left and palpable on the right. Lymph: No palpable or visible regional lymphadenopathy. Neuro: Loss of protective sensation bilateral foot Psych: Mood/Affect: Mood is normal. Affect is normal. Cognition: Orientation is intact to person, place and time. Focused lower extremity musculoskeletal exam: Leg: No pain with compression of the calf muscle. Ankles: Normal to inspection and palpation. No swelling bilaterally. No tender ness bilaterally. Motor strength is intact. Range of motion pain-free and unlimited. Feet: Plantar ulceration subfirst metatarsal head left foot is decreased in size. There is no longer any bony endpoint palpable within the wound bed as the sesamoids been removed. Incision site from left tibial sesamoidectomy is dehisced full thickness with necrotic tissue to the wound bed, scant purulent drainage on compression. Wound probes to the first MPJ and first metatarsal head, quite soft on palpation, consistent with osteomyelitis. Periwound erythema and edema to the left forefoot. No lymphangitis or streaking. Resolving ecchymosis to the lateral aspect of the left foot and plantar lateral foot Results & Data Results & Data Vital Signs (Past 12 Hours) Vital Signs Temp Pulse Resp BP Pulse Ox O2 Del Method 12/06/24 20:48 36.8 C 79 18 127/82 95 Room Air 12/06/24 20:10 Room Air Diagnostic Findings - Labs: - White blood count: Improved from 11.86 to 5.97 - ESR: Elevated at 85 - CRP: Slightly elevated at 1.17 - Procalcitonin: Within normal limits at 0.07 - Wound culture: Grown Staph aureus - Intraoperative culture: Grown Staph aureus and Staph epidermidis - Imaging: - X-ray of the left foot: No radiographic signs of osteomyelitis - MRI of the left foot (12/05/2024): Soft tissue edema and swelling and signal abnormality in the first metatarsal and first proximal phalanx, may represent osteomyelitis - Diagnostic Testing: - Noninvasive vascular studies (06/28/2024): No evidence of occlusive disease or hemodynamically significant stenosis of the left lower extremity, scattered plaque identified, mild to moderate stenosis suspected at the popliteal trifurcation and within the dorsalis pedis artery with velocity elevation in excess of 200 cm/s Coding Level of Care Code 14344 SUB INP/OBS CARE 3/50MIN Diagnoses Subacute osteomyelitis of left foot M86.272 Osteomyelitis type: subacute Chronic ulcer of left foot with fat layer exposed L97.522 Diabetic ulcer of left midfoot associated with type 2 diabetes mellitus, unspecified ulcer stage E11.621; L97.429 Diabetes mellitus type: type 2 Diabetic foot ulcer location: midfoot Laterality: left Non-pressure ulcer stage: unspecified non-pressure ulcer stage (1) Osteomyelitis of left foot Osteomyelitis type: subacute Qualified Code(s): M86.272 - Subacute osteomyelitis, left ankle and foot (3) Diabetic foot ulcer Diabetes mellitus type: type 2 Diabetic foot ulcer location: midfoot Laterality: left Non-pressure ulcer stage: unspecified non-pressure ulcer stage Qualified Code(s): E11.621 - Type 2 diabetes mellitus with foot ulcer; L97.429 - Non-pressure chronic ulcer of left heel and midfoot with unspecified severity
--- NOTE | 2024-12-07 13:15 | Consultation ---
Date of Consultation December 07, 2024 Assessment & Plan (1) Peripheral vascular disease in diabetes mellitus: While she has a normal ankle-brachial index and biphasic Doppler flow in the dorsalis pedis and posterior tibial arteries, this does represent a nonhealing wound that despite appropriate pressure offloading and treatment over the last 6 months it has failed to heal and in fact is clinically worsened. I am unable to palpate pulses in the foot. After extensive discussion with the patient, her , as well as Dr. Plunkett, we all agree that it would be reasonable to interrogate the left lower extremity with an arteriogram to assess for possible lesions that could be treated either endovascularly or open if necessary. This will also help give us an objective sense of flow to the foot. We will get this scheduled for Tuesday, December 10, 2024. All questions were answered. History of Present Illness Reason for Consultation: Nonhealing left great toe wound Requesting Physician: Dr. Plunkett Attending Physician: Cain Vallejo MD History of Present Illness Asked by Dr. Plunkett to evaluate this 74-year-old woman with a nonhealing left great toe wound. This has been present since June,. Despite pressure offloading as well as antibiotic therapy she continues to progress. MRI performed yesterday suggest abnormality in the first metatarsal and proximal phalanx that may represent osteomyelitis. Patient is planned for left great toe amputation November. Patient denies any significant cardiovascular history. She denies any history of stroke or heart attack. She does have known underlying diabetic peripheral neuropathy. Current medications were reviewed. They are outlined in the electronic medical record. She is on Plavix but no other anticoagulants. Allergies Allergy/AdvReac Type Severity Reaction Status Date / Time cefuroxime AdvReac Intermediate upset Verified 12/02/24 08:47 stomach prochlorperazine AdvReac Intermediate Confusion Verified 12/02/24 08:47 [From Compazine] Home Medications Medication Instructions Recorded Confirmed Type glipizide 2.5 mg tablet, extended 2.5 mg PO BID 06/05/20 12/02/24 History release 24 hr metformin 1,000 mg tablet 1,000 mg PO BID 06/05/20 12/02/24 History pantoprazole 40 mg tablet,delayed 40 mg PO QAM 06/05/20 12/02/24 History release gabapentin 300 mg capsule 900 mg PO TID 08/07/20 12/02/24 History multivitamin 1 tab PO QAM 08/28/22 12/02/24 History triamcinolone acetonide 0.1 % 1 applic topical DAILY PRN dry legs 07/01/23 12/02/24 History topical cream acetaminophen 325 mg tablet 650 mg (2 x 325 mg) PO Q4H PRN 07/04/23 12/02/24 Rx pain #30 tabs magnesium 250 mg tablet 250 mg PO HS #30 tabs 07/04/23 12/02/24 Rx guaifenesin 600 mg tablet, 1,200 mg PO Q12 PRN Congestion 10/30/23 12/02/24 History extended release 12 hr (Mucinex) duloxetine 60 mg capsule,delayed 60 mg PO QAM 03/25/24 12/02/24 History release (Cymbalta) famotidine 40 mg tablet 40 mg PO QPM 05/06/24 12/02/24 History hydrochlorothiazide 25 mg tablet 25 mg PO QAM 05/06/24 12/02/24 History celecoxib 100 mg capsule (Celebrex) 100 mg PO QAM 07/21/24 12/02/24 History clopidogrel 75 mg tablet (Plavix) 75 mg PO QAM 07/21/24 12/02/24 History vitamin B complex 1 cap PO DAILY 11/08/24 12/02/24 History oxycodone-acetaminophen 5 mg-325 1 tab PO Q6H PRN pain #20 tabs 11/11/24 12/02/24 Rx mg tablet (Endocet) ipratropium 0.5 mg-albuterol 3 mg 3 ml NEB Q4R PRN shortness of 11/15/24 12/02/24 Rx (2.5 mg base)/3 mL nebulization breath #90 mL soln linezolid 600 mg tablet 600 mg PO BID #10 tabs 11/15/24 12/02/24 Rx sulfamethoxazole 400 1 tab PO BID #14 tabs 11/26/24 12/02/24 Rx mg-trimethoprim 80 mg tablet (Bactrim) pramipexole 0.25 mg tablet 0.25 mg PO HS RLS 12/03/24 12/03/24 History pramipexole 0.5 mg tablet 0.5 mg PO 1700 RLS 12/03/24 12/03/24 History Patient History Medical History Chronic SI joint pain Cerebrovascular disease Basilar artery stenosis Hx of respiratory failure (10/2023) Ambulatory dysfunction uses walker Wheezing History of DVT (deep vein thrombosis) Early (was hit by a board/bat to leg and developed clot) Diabetic peripheral neuropathy Hyperlipidemia Fatty liver Diabetes mellitus, type 2 Lumbar spinal stenosis Anxiety and depression Hypertension Degenerative disc disease Walker as ambulation aid Implantable intrathecal infusion pump present Containing hydromorphone Diarrhea History of pneumonia PNA annually (no current/recent dx) Reason for albuterol neb + inhaler PRN per patient Sleep apnea No device Chronic ulcer of left foot Follows with [place] wound [facility] Carotid stenosis Neck CTA 05/2024: The carotid arteries are without hemodynamically significant stenosis although there is again noted to be approximately 60% stenosis of the internal carotid artery on the left. Reason for Plavix per patient History of COVID-19 (04/2020) [facility] hospitalization, "resolved" Hx of gout GERD (gastroesophageal reflux disease) Restless leg syndrome History of kidney stones Surgical History Status post insertion of intrathecal pump (09/03/22) History of incision and drainage (07/01/24) Left foot wound debridement, [facility] History of back surgery 4 back surgeries total, most recent 2020 History of esophagogastroduodenoscopy (EGD) History of colonoscopy (07/28/24) [facility] History of tooth extraction H/O varicose vein ligation and stripping Saphenous vein History of open reduction and internal fixation (ORIF) procedure Right ankle History of section x3 History of herniorrhaphy Repair of incarcerated incisional hernia with Surgimesh 10cm in diameter resection of incarcerated omentum (2014) History of appendectomy Laparoscopic (2012) Family History Mother , age 77 of heart issues Osteoporosis Heart disease Cancer Hypertension Brother Diabetes Family history of diabetes mellitus Daughter Cervical cancer Father , Patient age 91 with Parkinson's disease Parkinsons Other No family history of adverse response to anesthesia Denies family history of Ovarian cancer Breast cancer Colorectal cancer Stroke Asthma Social History Smoking Status: Never smoker Second Hand Exposure: No; Do You Dip or Chew Tobacco: No; Hx Alcohol Use: No Hx Substance Use: No Preferred Language: Tajik Communication Ability: Effective Visual Impairment: Limited Hearing Ability: Normal Commodity Trader Required: No Beliefs That Will Affect Care: None marital status: Current Living Situation: Spouse current occupational status: retired 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 Abdomen is obese soft and nontender. She has a moderate abdominal pannus. Femoral pulses are easily palpable bilaterally. I cannot palpate pulses in either foot but the Doppler flow is biphasic in the dorsalis pedis and posterior tibial arteries bilaterally. The wound was examined along with Dr. Plunkett today. There is no open drainage however the wound on the medial aspect of the first metatarsal head did probe to bone. There is no significant erythema at this time. Noninvasive studies performed June 28, 2024 showed normal ankle-brachial indices, however velocity elevations were noted in the popliteal artery on the left with monophasic waveforms identified below the left distal superficial femoral artery. Results & Data Vital Signs (Past 12 Hours) Vital Signs Temp Pulse Resp BP Pulse Ox O2 Del Method 12/07/24 07:25 Room Air 12/07/24 07:19 36.5 C 61 18 135/71 95 Room Air
--- NOTE | 2024-12-08 07:20 | Hospitalist Progress Note ---
Date of Service December 08, 2024 Assessment & Plan (1) Diabetic peripheral neuropathy associated with type 2 diabetes mellitus: (2) Osteomyelitis of left foot: (3) Cerebrovascular disease: (4) Implantable intrathecal infusion pump present: (5) HERIBERTO (obstructive sleep apnea): (6) Candidiasis: Plan Patient is a 74yo F with PMHx of T2DM c/b peripheral neuropathy, CVA, GERD, HLD, HERIBERTO, and radiculopathies on morphine pump, who presents per referral of wound care clinic with chronic, non-healing ulcer of her left foot. Non-healing foot ulcer Pt w/ L foot medial/plantar wound for >6 months. s/p excisional debridement on 07/01 and resection of osteomyelitis of sesamoid bone on 10/31. Ddx includes Osteo as most likely, as well as diabetic foot dz, repeated trauma, vs PAD vs venous stasis Wound culture from 11/11 grew MRSA. Culture obtained by wound clinic on 12/02 grew S. aureus X-ray foot demonstrated no osteomyelitis. Not the best imaging modality for this concern - foot MRI ordered MRI completed on 12/05 showed indications of osteomyelitis at left 1st metatarsal and proximal phalanx Podiatry consulted and recommends left 1st ray amputation for source control- scheduled for 12/09. Vascular consult completed- arteriogram scheduled for 12/10 Continue IV cefepime and dapto Wound care consulted, appreciate recs Pain control with Tylenol for mild, 0.5mg Dilaudid q3h prn for mod, and 1mg Dilaudid q3h prn for severe Candidiasis of skin folds - Ordered nystatin cream BID to affected areas T2DM w/ neuropathy most recent a1c on 11/09/24 was 7.3% continue glipizide, metformin, gabapentin bsg ACHS Radiculopathies / Pain pump Intrathecal morphine pump palpable in right-middle abdomen KUB ordered to confirm pump placement Per landscape technician recommendation, pain management consulted to manage pump after foot MRI Continue home pain meds HTN - continue HCTZ GERD - continue pepcid, protonix STEPHEN/depression - continue duloxetine Diet: DM2 VTE ppx: lovenox Dispo: admit to med-surg, anticipate eventual discharge home Code: Full Admission and Anticipated Discharge Date Admission Date: December 02, 2024 Supervising Physician Co-Signing Physician Notes Attending attestation Pt seen and examined in concert with Dr. Salazar. In agreement with the documented findings as noted in the resident documentation with any exceptions or additions as noted here. Resting comfortably in chair at bedside without acute complaint, pain well controlled with present medication regimen. VS as noted. On examination, S1/S2 nl RRR no MCG. CTAB. Abd NT/ND BS+ve Osteomyelitis - continue cefepime and daptomycin. Planning for amputation per podiatry in AM, vascular study for Friday. Else see resident documentation as noted. Subjective Pt reports she has had some increase in her left foot pain. She has been trying to reduce time on her feet as well as elevating her legs when she can. Pt is also noting that anti-fungal powder is not helping rash under breasts. Pt met with vascular surgeon yesterday and will be having L LE arteriogram scheduled for 12/10, which will be following her First ray amputation on 12/09/24. Pt denies CP, SOB, N/V/C/D, dizziness or headaches Review of Systems Review of Systems: reviewed, per HPI Physical Exam Physical Exam: Constitutional: well-appearing, no acute distress HEENT: NCAT, no conjunctival injection CV: regular rhythm, no murmur appreciated, extremities well-perfused, no LE edema Resp: CTABL, no wheezes/rales/rhonchi appreciated, no increased work of breathing GI: soft, nondistended, nontender, BS normoactive MSK: no gross deformities appreciated Skin: L foot wound wrapped. No drainage noted on bandages. Rash under bilateral breasts is erythematous, flaking skin without drainage. Same skin findings noted under lateral abdominal skin folds. Neuro: alert, oriented, no focal neurologic deficit appreciated Results & Data Results & Data Vital Signs (Past 12 Hours) Vital Signs Temp Pulse Resp BP Pulse Ox O2 Del Method 12/07/24 20:25 Room Air 12/07/24 20:03 36.6 C 60 18 136/70 94 Room Air Resident Activity Tracking Resident Involvement: Resident Care Provided Care Provided: Adult Hospital Medicine (2) Osteomyelitis of left foot Osteomyelitis type: subacute Qualified Code(s): M86.272 - Subacute osteomyelitis, left ankle and foot
[2024-12-08 07:50] LABS: Hematocrit (blood only) 36.1 % (37.0-47.0); Hemoglobin 11.4 g/dl (12.0-16.0); Mean Corpuscular Hemoglobin 27.9 pg (25.0-34.0); Mean Corpuscular Volume 88.5 fL (80.0-100.0); Platelet Count 374 K/uL (130-400); RDW Standard Deviation 52.2 fL (36.4-46.3); Red Blood Count 4.08 M/uL (4.20-5.40); White Blood Count 5.74 K/ul (4.8-10.8)
[2024-12-08 08:06] LABS: Alanine Aminotransferase 20.0 U/L (7-52); Albumin Globulin Ratio 0.9 (0.9-2); Alkaline Phosphatase 71.0 U/L (34-104); Anion Gap 8.0 (3-11); Bilirubin,Total 0.4 mg/dl (0.2-1.0); Blood Urea Nitrogen 15.0 mg/dl (6-23); Calcium 9.4 mg/dl (8.6-10.3); Carbon Dioxide 28.0 mmol/L (21-32); Chloride 105.0 mmol/L (98-107); Creatinine Clr Calc Pharmacy 73.7 ml/min; Globulin 3.7 gm/dl (2.5-4.0); Glucose 95.0 mg/dl (70-99(Fasting)); Potassium 3.6 mmol/L (3.5-5.1); Sodium 141.0 mmol/L (136-145); Total Protein 7.2 gm/dl (6.0-8.3)
[2024-12-08] MEDS: NYSTATIN OINT 15 GM TUBE EXT SCH (10:54)
--- NOTE | 2024-12-08 15:22 | Vascular Medicine ProgressNote ---
Date of Service December 08, 2024 Assessment & Plan (1) Peripheral vascular disease in diabetes mellitus: Plan Discussed with patient and . Plan for diagnostic and possibly therapeutic left leg arteriogram on 12/10/24. Patient will need to be monitored in intermediate/progressive care over night that evening. NPO after midnight 12/09/24. Can continue Plavix. Admission and Anticipated Discharge Date Admission Date: December 02, 2024 Subjective No new clinical findings Results & Data Vital Signs (Past 12 Hours) Vital Signs Temp Pulse Resp BP BP Pulse Ox O2 Del Method 12/08/24 14:39 36.6 C 89 18 147/73 H 96 Room Air 12/08/24 07:20 36.7 C 68 16 128/81 96 Room Air PG Care Time/CCT Total # of Minutes Spent Total Time Spent with Patient: Total time spent is greater than 50% in coordination of care (as documented) at patient's floor/unit and/or counseling patient: Coding Level of Care Code 42533 SUB INP/OBS CARE 2/35MIN Diagnoses Peripheral vascular disease in diabetes mellitus E11.51
--- NOTE | 2024-12-08 18:56 | Podiatry Progress Note ---
Date of Service December 08, 2024 Assessment & Plan (1) Osteomyelitis of left foot: (2) Chronic ulcer of left foot with fat layer exposed: (3) Diabetic foot ulcer: Plan Left foot infection: Cellulitis, osteomyelitis, Diabetic foot ulcer, s/p tibial sesmoidectomy - Plan for left partial first ray amputation with implantation of absorbable antibiotic beads and attempted primary closure scheduled 12/09/2024 8:45 AM. - N.p.o. at midnight tonight - Okay to continue Plavix through the perioperative period - Written informed consent reviewed with patient including risks, benefits, alternatives and risks to the alternatives at length with patient. All ques tions answered. Consent is signed and witnessed. -Patient okay to continue weightbearing as tolerated to the left foot until time of surgery. Postoperative level maintain weightbearing to the left foot until she is fit with cam walker and cleared by vascular surgery to resume weightbearing following planned arteriogram. - Given patient's history of osteomyelitis nonhealing ulcer ulceration and f ailure to heal And high risk for failure which would likely result in readmission patient will benefit from continued hospitalization until we have received pathology and culture results collected intraoperatively on 12/09/2024 to allow for antibiotic and treatment plan adjustment as needed. Admission and Anticipated Discharge Date Admission Date: December 02, 2024 Stephon Lee is seen resting comfortably in bedside chair eating lunch. Denies nausea vomiting fever chills. Denies pain in left foot. We discussed plan for partial first ray amputation of the left foot scheduled for 845 tomorrow morning and she would like to proceed with the procedure. Written informed consent is reviewed at length with patient including risks benefits alternatives and risks to the alternatives and all questions were answered. Written informed consent signed and witnessed. We continued our discussion regarding postoperative management including a period of nonweightbearing followed by transition to cam walker until she is able to be fit with modified diabetic shoes to continue to support the left foot reduce risk of development of Charcot neuroarthropathy status post partial first ray amputation. Review of Systems Review of Systems: Negative for nausea, vomiting, fever, chills, shortness of breath, or chest pain. Physical Exam Physical Exam: Const: Appears well developed and well nourished. No signs of acute distress present. CV: Extremities: No cyanosis or edema. Capillary refill time is less than 2 seconds all digits of the bilateral foot. Posterior tibial and dorsalis pedis pulses are lightly to non palpable left and palpable on the right. Lymph: No palpable or visible regional lymphadenopathy. Neuro: Loss of protective sensation bilateral foot Psych: Mood/Affect: Mood is normal. Affect is normal. Cognition: Orientation is intact to person, place and time. Focused lower extremity musculoskeletal exam: Leg: No pain with compression of the calf muscle. Ankles: Normal to inspection and palpation. No swelling bilaterally. No tenderness bilaterally. Motor strength is intact. Range of motion pain-free and unlimited. Feet: Plantar ulceration subfirst metatarsal head left foot is decreased in size. There is no longer any bony endpoint palpable within the wound bed as the sesamoids been removed. Incision site from left tibial sesamoidectomy is dehisced full thickness with necrotic tissue to the wound bed, scant purulent drainage on compression. Wound probes to the first MPJ and first metatarsal head, quite soft on palpation, consistent with osteomyelitis. Periwound erythema and edema to the left forefoot. No lymphangitis or streaking. Resolving ecchymosis to the lateral aspect of the left foot and plantar lateral foot Results & Data Results & Data Vital Signs (Past 12 Hours) Vital Signs Temp Pulse Resp BP BP Pulse Ox O2 Del Method 12/08/24 14:39 36.6 C 89 18 147/73 H 96 Room Air 12/08/24 07:20 36.7 C 68 16 128/81 96 Room Air Coding Level of Care Code 94632 SUB INP/OBS CARE 2/35MIN Diagnoses Subacute osteomyelitis of left foot M86.272 Osteomyelitis type: subacute Chronic ulcer of left foot with fat layer exposed L97.522 Diabetic ulcer of left midfoot associated with type 2 diabetes mellitus, unspecified ulcer stage E11.621; L97.429 Diabetes mellitus type: type 2 Diabetic foot ulcer location: midfoot Laterality: left Non-pressure ulcer stage: unspecified non-pressure ulcer stage (1) Osteomyelitis of left foot Osteomyelitis type: subacute Qualified Code(s): M86.272 - Subacute osteomyelitis, left ankle and foot (3) Diabetic foot ulcer Diabetes mellitus type: type 2 Diabetic foot ulcer location: midfoot Lateral ity: left Non-pressure ulcer stage: unspecified non-pressure ulcer stage Qualified Code(s): E11.621 - Type 2 diabetes mellitus with foot ulcer; L97.429 - Non-pressure chronic ulcer of left heel and midfoot with unspecified severity
--- NOTE | 2024-12-09 07:10 | Hospitalist Progress Note ---
Date of Service December 09, 2024 Assessment & Plan (1) Diabetic peripheral neuropathy associated with type 2 diabetes mellitus: (2) Osteomyelitis of left foot: (3) Cerebrovascular disease: (4) Implantable intrathecal infusion pump present: (5) HERIBERTO (obstructive sleep apnea): (6) Candidiasis: Plan Patient is a 74yo F with PMHx of T2DM c/b peripheral neuropathy, CVA, GERD, HLD, HERIBERTO, and radiculopathies on morphine pump, who presents per referral of wound care clinic with chronic, non-healing ulcer of her left foot. Non-healing foot ulcer Pt w/ L foot medial/plantar wound for >6 months. s/p excisional debridement on 07/01 and resection of osteomyelitis of sesamoid bone on 10/31. Ddx includes Osteo as most likely, as well as diabetic foot dz, repeated trauma, vs PAD vs venous stasis Wound culture from 11/11 grew MRSA. Culture obtained by wound clinic on 12/02 grew S. aureus X-ray foot demonstrated no osteomyelitis. Not the best imaging modality for this concern - foot MRI ordered MRI completed on 12/05 showed indications of osteomyelitis at left 1st metatarsal and proximal phalanx Podiatry consulted recommends left 1st ray amputation for source control- scheduled for this morning Vascular consult completed- arteriogram scheduled for 12/10 Continue IV cefepime and dapto Wound care consulted, appreciate recs Pain control with Tylenol for mild, 0.5mg Dilaudid q3h prn for mod, and 1mg Dilaudid q3h prn for severe Candidiasis of skin folds - Continue nystatin cream BID to affected areas T2DM w/ neuropathy most recent a1c on 11/09/24 was 7.3% continue glipizide, metformin, gabapentin bsg ACHS Radiculopathies / Pain pump Intrathecal morphine pump palpable in right-middle abdomen KUB ordered to confirm pump placement Per facility technician recommendation, pain management consulted to manage pump after foot MRI Continue home pain meds HTN - continue HCTZ GERD - continue pepcid, protonix STEPHEN/depression - continue duloxetine Diet: DM2 VTE ppx: lovenox Dispo: admit to med-surg, anticipate eventual discharge home Code: Full Admission and Anticipated Discharge Date Admission Date: December 02, 2024 Supervising Physician Co-Signing Physician Notes Attending attestation Pt seen and examined in concert with Dr. Harkey. In agreement with the documented findings as noted in the resident documentation with any exceptions or additions as noted here. Evaluated in bed postoperatively with pain well controlled at present. Tearful following procedure. VS as noted. On examination, S1/S2 nl RRR no MCG. CTAB. Abd NT/ND BS+ve. Foot dressing C/D/I Osteomyelitis - continue cefepime and daptomycin s/p amputation. Vascular study pending for tomorrow for further evaluation. Consider midline for ongoing abx t herapy if required. Else see resident documentation as noted. Subjective No acute events over night. Pt reports feeling nervous about scheduled first toe amputation today. Pt's at bedside for support. Pt denies CP, SOB, abdominal pain, N/V/C/D. She continues with left foot pain. Review of Systems Review of Systems: reviewed, per HPI Physical Exam Physical Exam: Constitutional: well-appearing, no acute distress HEENT: NCAT, no conjunctival injection CV: regular rhythm, no murmur appreciated, extremities well-perfused, no LE edema Resp: CTABL, no wheezes/rales/rhonchi appreciated, no increased work of breathing GI: soft, nondistended, nontender, BS normoactive MSK: no gross deformities appreciated Skin: L foot wound wrapped. No drainage noted on bandages. Rash under bilateral breasts is erythematous, flaking skin without drainage. Same skin findings noted under lateral abdominal skin folds. Neuro: alert, oriented, no focal neurologic deficit appreciated Results & Data Results & Data Vital Signs (Past 12 Hours) Vital Signs Temp Pulse BP Pulse Ox O2 Del Method 12/08/24 20:35 36.8 C 78 144/80 H 96 Room Air Resident Activity Tracking Resident Involvement: Resident Care Provided Care Provided: Adult Hospital Medicine (2) Osteomyelitis of left foot Osteomyelitis type: subacute Qualified Code(s): M86.272 - Subacute osteomyelitis, left ankle and foot
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
[2024-12-09] MEDS ORDERED: FLUMAZENIL 0.1 MG/1 ML 10 ML VIAL IV PRN (08:27)
[2024-12-09] MEDS ORDERED: ONDANSETRON INJ 2 MG/ML 2 ML VIAL IV PRN (08:27)
[2024-12-09] MEDS ORDERED: ATROPINE SULFATE 0.1 MG/ML 10ML SYR IV PRN (08:27)
[2024-12-09] MEDS ORDERED: NALOXONE HCL 0.4 MG/1 ML VIAL/CARP IV PRN (08:27)
[2024-12-09] MEDS ORDERED: PROMETHAZINE HCL 6.25 MG in SODIUM CHLORIDE 0.9% 50 ML IV PRN (08:27)
[2024-12-09] MEDS ORDERED: HYDROmorphone INJ 1 MG/ML SYRINGE IV PRN (08:27)
--- NOTE | 2024-12-09 08:27 | History & Physical Bridge Note ---
Date of Service December 09, 2024 History & Physical Bridge Note I have examined the patient, reviewed the History & Physical and in the interval since the performance of the History & Physical I have noted the following changes of clinical significance: no changes noted
[2024-12-09] MEDS: LACTATED RINGER'S 1,000 ML IV SCH (08:37)
[2024-12-09] MEDS ORDERED: MIDAZOLAM HCL 1 MG/ML 2ML VIAL ONE (08:42)
[2024-12-09] MEDS ORDERED: PROPOFOL IV EMULSION 10 MG/ML 20 ML VIAL IV ONE (08:43)
[2024-12-09 08:44] LABS: Hematocrit (blood only) 34.2 % (37.0-47.0); Hemoglobin 11.3 g/dl (12.0-16.0); Mean Corpuscular Hemoglobin 29.4 pg (25.0-34.0); Mean Corpuscular Volume 89.1 fL (80.0-100.0); Platelet Count 347 K/uL (130-400); RDW Standard Deviation 53.1 fL (36.4-46.3); Red Blood Count 3.84 M/uL (4.20-5.40); White Blood Count 8.08 K/ul (4.8-10.8)
[2024-12-09] MEDS ORDERED: PROPOFOL IV EMULSION 10 MG/ML 100 ML VIAL IV ONE (08:46)
[2024-12-09] MEDS: GELATIN SPONGE 12-7MM ONE (09:38)
[2024-12-09] MEDS: VANCOMYCIN HCL 1000MG/20ML VIAL ONE (09:40)
[2024-12-09] MEDS: BUPIVACAINE 0.5 % 5 MG/1 ML MPF 30ML VIAL ONE (09:44)
[2024-12-09] MEDS: LIDOCAINE 1% LOCAL 20 ML VIAL ONE (09:44)
[2024-12-09] MEDS: GENTAMICIN SULFATE 40 MG/ML 2 ML VIAL ONE (10:05)
--- NOTE | 2024-12-09 10:07 | Operative Report ---
PG Post Operative Report Pre & Post Diagnosis Operation Date: 12/10/24 08:00 Diabetic foot infection, osteomyelitis left first metatarsal, diabetic ulcer left foot, nonhealing surgical wound left foot, osteomyelitis proximal phalanx of the hallux. I identified the patient and participated in the time-out.: Yes Procedure Operation Date: 12/10/24 08:00 Partial first ray amputation left foot Implantation of antibiotic impregnated beads left foot Surgeon Gerardo Plunkett DPM Law Instructor none Estimated Blood Loss 50 Findings Consistent with Post-Op Diagnosis Specimens x4 proximal margin bone 1st met to path proximal margin bone 1st met to bone 1st met head for culture partial 1st ray to path Drains none Complications none Description of Procedure Patient was brought to the operating room, placed on the operating table in the supine position. Following i.v. sedation, local anesthesia obtained about the patient's left wrist utilizing a total of 20 cm of 1:1 mixture of 1% lidocaine plain and half percent Marcaine plain. In a modified Renee block fashion. A well padded nonsterile ankle tourniquet was placed about the patient's left ankle utilizing adequate cast padding to protect soft tissues. The timeout is held confirming correct patient, side, site, procedure with all necessary parties confirming. The left lower extremity is scrubbed, prepped and draped in usual aseptic fashion to the level of the ankle tourniquet. Attention is directed to the left first ray. There is an ulceration noted subfirst metatarsal head as well as dehisced incision medially over the first metatarsophalangeal joint. A an elliptical incision is planned about the ulceration and dehisced wound medially which extended distally through a fishmouth shaped incision around the base of the hallux. Incision is created with a 10 blade to the level of bone. Hemostasis is achieved through electrocautery and direct pressure. Decision is made at this time to elevate the tourniquet to 250 mm of Mercury without exsanguination of the foot. Soft tissues are freed surrounding the first metatarsal head and the joint is disarticulated at the metatarsophalangeal joint and the hallux is passed from the operative field. Soft tissue surrounding the shaft of the first metatarsal are freed and sharp dissection with a 15 blade and freer elevator. Measurement is taken with a ruler to ensure that it was extending at least 3-1/2 cm proximal from the distal aspect of the first metatarsal head which would allow for removal of the intramedullary fluid collection noted on MRI as well as reasonable resection of signal enhanced bone noted on MRI concerning for osteomyelitis. Sagittal saw was obtained from the back table and utilized to resect the first metatarsal from dorsal distal medial to plantar proximal lateral. The remainder of the metatarsal was freed from surrounding soft tissue attachments and passed from the operative field. On the back table, sagittal saw was utilized to collect the proximal margin from the proximal end of the first metatarsal. Rongeur was utilized to collect bone sample from the proximal end of the first metatarsal for bone culture and the bone of the first metatarsal head is collected with a rongeur to be sent for bone culture as well. Bone at the distal end of the first metatarsal or first metatarsal head is noted to be soft with a centeno discoloration. Bone at the proximal cut end of the metatarsal is much firmer and healthier color in appearance. Wound is flushed with copious amounts of normal sterile saline. The wound is evaluated and any nonviable tissue and tendinous structures are pulled distally and cut and allowed to retract into more proximal tissues. Wound was again flushed with copious amounts of normal sterile saline. On the back table, 5 cm of stimulant absorbable antibiotic beads are created with 1 g of vancomycin powder. tourniquet was released and a total tourniquet time of 14 minutes and prompt hyperemic response is noted to the left foot.At this time, there is bleeding noted throughout the base of the wound and hemostasis achieved with 2 minutes of direct pressure with a small Gelfoam placed in the wound bed, which is then removed. There is one large lumen that is open lumen that is ligated with a 2-0 Vicryl suture. Vancomycin impregnated beads are packed into the medulla of the cut first metatarsal and placed over the distal aspect of the cut first metatarsal as well as along the course of the metatarsal at the level of the metatarsal head within the wound bed. Two 2-0 Vicryl sutures are placed to reduce space within the wound bed. Remainder of the wound is reapproximated and closed with 3-0 nylon suture and simple interrupted suturing technique. Foot is cleansed with normal sterile saline, dried and dressed with Betadine, soaked Adaptic, 4 x 4 fluff gauze, ABD pad x 3 Willie and a lightly applied Elias bandage, hold dressings in place. Patient tolerated the procedure and anesthesia well. She was transferred to the recovery room with vital signs stable and vascular status intact to all remaining digits of the left foot. Following a brief period of postoperative monitoring in the recovery room, patient was transferred back to her bed on the [facility] for ongoing medical management, i.v. antibiotics. And ordered to remain nonweightbearing to the left foot. I attest to the content of the Intraoperative Record and any orders documented therein. Any exceptions are noted below.
--- NOTE | 2024-12-09 10:08 | Post Operative Brief Note ---
PG Immediate Post Op with CF Date of Surgery December 09, 2024 Pre & Post Diagnosis Operation Date: 12/10/24 08:00 osteomyelitis left 1st metatarsal I identified the patient and participated in the time-out.: Yes Procedure Operation Date: 12/10/24 08:00 partial 1st ray amputation left. antibiotic bead placement left Surgeon Gerardo Plunkett DPM Rolling Machine Operator none Estimated Blood Loss 50 Findings Consistent with Post-Op Diagnosis Specimens Specimen Description: Pathology: A: Proximal/margin 1st metatarsal Left B: Partial 1st Ray Left Foot Culture: #1 Proximal/margin bone 1st metarsal Left #2 Bone 1st Metarsal head left Complications none
--- NOTE | 2024-12-09 10:59 | Anesthesiology Progress Note ---
Date of Service December 09, 2024 Anesthesia Post Procedure Vital Signs Vital Signs: Temp Pulse Pulse Resp BP BP Pulse Ox 12/09/24 10:30 77 15 150/93 H 99 12/09/24 10:20 78 18 164/65 H 100 12/09/24 10:12 36.5 C 92 H 20 151/97 H 100 12/09/24 08:17 36.8 C 84 18 139/101 H 94 12/09/24 07:37 36.8 C 74 16 112/68 92 12/08/24 20:35 36.8 C 78 144/80 H 96 12/08/24 14:39 36.6 C 89 18 147/73 H 96 O2 Del Method O2 Flow Rate 12/09/24 10:30 Room Air 12/09/24 10:20 Nasal Cannula 2 12/09/24 10:12 Nasal Cannula 2 12/09/24 08:17 Room Air 12/09/24 07:37 Room Air 12/08/24 20:35 Room Air 12/08/24 14:39 Room Air Pain Intensity Left Foot: Pain Intensity: 0 Transfer of Care Handoff Completed per policy Notes Mental Status: alert / awake / arousable Patient Amnestic to Procedure: Yes Nausea / Vomiting: adequately controlled Pain: adequately controlled Airway Patency, RR, SpO2: stable & adequate BP & HR: stable & adequate Hydration State: stable & adequate Anesthetic Complications: no major complications apparent
--- NOTE | 2024-12-09 17:06 | Infectious Disease Progress Nt ---
Date of Service December 09, 2024 Assessment & Plan (1) Peripheral vascular disease in diabetes mellitus: Plan: left leg angiogram scheduled for tomorrow morning. Discussed with patient. NPO after midnight. Continue plavix. Will need to go to monitored bed tomorrow evening for overnight. Primary team notified. Admission and Anticipated Discharge Date Admission Date: December 02, 2024 Subjective Underwent left great toe amputation earlier today. Case discussed with Dr. Plunkett. No major concerns noted. Will plan for diagnostic angiogram with intervention if indicated tomorrow morning. Physical Exam Physical Exam: Dressing on left foot dry and intact Results & Data Vital Signs (Past 12 Hours) Vital Signs Temp Pulse Pulse Resp BP BP Pulse Ox 12/09/24 14:11 36.8 C 78 16 149/75 H 94 12/09/24 13:08 36.5 C 82 16 149/80 H 98 12/09/24 12:16 36.3 C L 69 16 148/77 H 95 12/09/24 11:26 36.4 C L 67 16 152/69 H 96 12/09/24 10:50 36.5 C 72 18 165/83 H 96 12/09/24 10:30 77 15 150/93 H 99 12/09/24 10:20 78 18 164/65 H 100 12/09/24 10:12 36.5 C 92 H 20 151/97 H 100 12/09/24 08:17 36.8 C 84 18 139/101 H 94 12/09/24 07:37 36.8 C 74 16 112/68 92 O2 Del Method O2 Flow Rate 12/09/24 14:11 Room Air 12/09/24 13:08 Room Air 12/09/24 12:16 Room Air 12/09/24 11:26 Room Air 12/09/24 10:50 Room Air 12/09/24 10:30 Room Air 12/09/24 10:20 Nasal Cannula 2 12/09/24 10:12 Nasal Cannula 2 12/09/24 08:17 Room Air 12/09/24 07:37 Room Air
[2024-12-10] MEDS: LOPERAMIDE HCL 2 MG CAP PO STA (06:14)
[2024-12-10] MEDS: LORazepam 0.5 MG TAB PO STA (06:14)
--- NOTE | 2024-12-10 06:53 | Pre Anesthesia Assessment ---
Date of Service December 10, 2024 Pre Sedation Assessment Vital Signs Temp Pulse Pulse Resp BP BP Pulse Ox 12/10/24 02:07 36.6 C 67 16 148/67 H 93 12/09/24 22:16 36.3 C L 70 14 132/75 95 12/09/24 14:11 36.8 C 78 16 149/75 H 94 12/09/24 13:08 36.5 C 82 16 149/80 H 98 12/09/24 12:16 36.3 C L 69 16 148/77 H 95 12/09/24 11:26 36.4 C L 67 16 152/69 H 96 12/09/24 10:50 36.5 C 72 18 165/83 H 96 12/09/24 10:30 77 15 150/93 H 99 12/09/24 10:20 78 18 164/65 H 100 12/09/24 10:12 36.5 C 92 H 20 151/97 H 100 12/09/24 08:17 36.8 C 84 18 139/101 H 94 12/09/24 07:37 36.8 C 74 16 112/68 92 O2 Del Method O2 Flow Rate 12/10/24 02:07 Room Air 12/09/24 22:16 Room Air 12/09/24 14:11 Room Air 12/09/24 13:08 Room Air 12/09/24 12:16 Room Air 12/09/24 11:26 Room Air 12/09/24 10:50 Room Air 12/09/24 10:30 Room Air 12/09/24 10:20 Nasal Cannula 2 12/09/24 10:12 Nasal Cannula 2 12/09/24 08:17 Room Air 12/09/24 07:37 Room Air Cardiovascular RRR, no murmur, no edema + regular rate + femoral pulses present Respiratory normal respiratory effort, lungs clear to auscultation Pre-Sedation Airway Assessment Smoking Status: Never smoker Thyromental Distance: < 3.5 Finger Breadths Oral Cavity: + WNL Mallampati Class: II ASA: ASA3 NPO Status Date of Last Intake of Fluids: 12/10/24 Time of Last Intake of Fluids: 00:00 Date of Last Intake of Solid Food: 12/10/24 Time of Last Intake of Solid Foods: 00:00 Procedure Planning Current Medications Reviewed: Yes Notes The planned sedation has been discussed with the patient. Informed Consent was obtained. I have identified the patient, determined the appropriateness of sedation and have assessed the patient immediately prior to the procedure. All medicine(s) and interventions are by my order.
--- NOTE | 2024-12-10 07:28 | Hospitalist Progress Note ---
Date of Service December 10, 2024 Assessment & Plan (1) Diabetic peripheral neuropathy associated with type 2 diabetes mellitus: (2) Osteomyelitis of left foot: (3) Cerebrovascular disease: (4) Implantable intrathecal infusion pump present: (5) HERIBERTO (obstructive sleep apnea): (6) Candidiasis: Plan Patient is a 74yo F with PMHx of T2DM c/b peripheral neuropathy, CVA, GERD, HLD, HERIBERTO, and radiculopathies on morphine pump, who presents per referral of wound care clinic with chronic, non-healing ulcer of her left foot. Non-healing foot ulcer Pt w/ L foot medial/plantar wound for >6 months. s/p excisional debridement on 07/01 and resection of osteomyelitis of sesamoid bone on 10/31. Ddx includes Osteo as most likely, as well as diabetic foot dz, repeated trauma, vs PAD vs venous stasis Wound culture from 11/11 grew MRSA. Culture obtained by wound clinic on 12/02 grew S. aureus X-ray foot demonstrated no osteomyelitis. Not the best imaging modality for this concern - foot MRI ordered MRI completed on 12/05 showed indications of osteomyelitis at left 1st metatarsal and proximal phalanx Podiatry consulted !st ray amputation completed 12/09 NWB L LE until 12/11 Pain control with Tylenol PO, Oxycodone/acetaminophen po, or IV hydromorphone PRN Vascular consult completed- arteriogram postoned until 12/13 PT/OT eval ordered, awaiting recommendations Continue IV cefepime and dapto Wound care consulted, appreciate recs Candidiasis of skin folds - Continue nystatin cream BID to affected areas T2DM w/ neuropathy most recent a1c on 11/09/24 was 7.3% continue glipizide, metformin, gabapentin bsg ACHS Radiculopathies / Pain pump Intrathecal morphine pump palpable in right-middle abdomen KUB ordered to confirm pump placement Per sterile preparation technician recommendation, pain management consulted to manage pump after foot MRI Continue home pain meds HTN - continue HCTZ GERD - continue pepcid, protonix STEPHEN/depression - continue duloxetine Diet: DM2 VTE ppx: lovenox Dispo: admit to med-surg, anticipate eventual discharge home Code: Full Admission and Anticipated Discharge Date Admission Date: December 02, 2024 Supervising Physician Co-Signing Physician Notes ATTESTATION I also saw the patient and confirmed sims portions of the history and exam. I agr ee with the impression and plan in the resident documentation, and as summarized below. Seated at bed side with family present. Some questions with regards to ambulation reviewed. EXAM VS as noted A/O. NAD CV regular Respirations non labored Surgical site bandaged DATA Labs HgB 10.6 BMP WNL Micro Surgical cultures 12/09 no growth to date IMPRESSION & PLAN Non healing foot ulcer in the setting of PVD and DM S/P first ray amputation left foot, POD #1 Cellulitis left lower limb Continue current antibiotics pending cultures Lovenox for DVT prophylaxis PT Vascular study postponed until Friday Additional per resident documentation Subjective Early this morning, pt was feeling anxious about her procedure with vascular that is scheduled for today. She was given dose of Ativan. At exam, pt reports that she started with diarrhea this morning around 430 am. She denies abdominal pain and nausea. After meeting with vascular surgeon, is was decided that is would be best to postpone the arteriogram until 12/13 due to recent diarrhea. Pt reports rash under breasts is less itchy, but continues with redness. Pt denies chest pain, SOB, Vomiting, constipation Review of Systems Review of Systems: reviewed, per HPI Physical Exam Physical Exam: Constitutional: well-appearing, no acute distress HEENT: NCAT, no conjunctival injection CV: regular rhythm, no murmur appreciated, extremities well-perfused Resp: CTABL, no wheezes/rales/rhonchi appreciated, no increased work of breathing GI: soft, nondistended, nontender, BS normoactive MSK: Able to lift and move L LE without assist Skin: L foot is wrapped in MARQUISE bandage. No drainage noted from area of 1st toe. Minimal edema at ankle and remaining toes. Neuro: alert, oriented, no focal neurologic deficit appreciated Results & Data Results & Data Vital Signs (Past 12 Hours) Vital Signs Temp Pulse Resp BP Pulse Ox O2 Del Method 12/10/24 02:07 36.6 C 67 16 148/67 H 93 Room Air 12/09/24 22:16 36.3 C L 70 14 132/75 95 Room Air Resident Activity Tracking Resident Involvement: Resident Care Provided Care Provided: Adult Hospital Medicine (2) Osteomyelitis of left foot Osteomyelitis type: subacute Qualified Code(s): M86.272 - Subacute osteomyelitis, left ankle and foot
--- NOTE | 2024-12-10 08:22 | Infectious Disease Progress Nt ---
Date of Service December 10, 2024 Assessment & Plan (1) Peripheral vascular disease in diabetes mellitus: Plan: Discussed at length with patient and . Will postpone procedure this morning and tentatively plan for Friday afternoon. Admission and Anticipated Discharge Date Admission Date: December 02, 2024 Subjective patient developed diarrhea at 0530 this morning. Tells me that since her back surgery she has not been able to reliably tell when she may need to have a BM. She is very concerned about her continence both during and after the procedure. Results & Data Vital Signs (Past 12 Hours) Vital Signs Temp Pulse Pulse Resp BP Pulse Ox O2 Del Method 12/10/24 07:43 36.9 C 72 14 154/86 H 96 Room Air 12/10/24 02:07 36.6 C 67 16 148/67 H 93 Room Air 12/09/24 22:16 36.3 C L 70 14 132/75 95 Room Air
[2024-12-10] MEDS: LIDOCAINE 1%/EPINEPHRINE 1:100,000 50 ML VIAL ONE (09:12)
[2024-12-10] MEDS: HEPARIN (PORCINE) 1000 UNIT/ML 10 ML (CATH LAB USE ONLY) ONE (09:12)
[2024-12-10] MEDS: LIDOCAINE 1% LOCAL 20 ML VIAL ONE (09:12)
[2024-12-10] MEDS: MIDAZOLAM HCL 5 MG/ML 1 ML VIAL ONE (09:13)
[2024-12-10] MEDS: NITROGLYCERIN/D5W 100MCG/ML 20ML SYR ONE ×2 (09:13)
[2024-12-10 09:34] LABS: Anion Gap 8.0 (3-11); Blood Urea Nitrogen 13.0 mg/dl (6-23); Calcium 9.3 mg/dl (8.6-10.3); Carbon Dioxide 27.0 mmol/L (21-32); Chloride 105.0 mmol/L (98-107); Creatinine Clr Calc Pharmacy 77.1 ml/min; Glucose 94.0 mg/dl (70-99(Fasting)); Potassium 3.6 mmol/L (3.5-5.1); Sodium 140.0 mmol/L (136-145)
[2024-12-10 09:40] LABS: Hematocrit (blood only) 33.5 % (37.0-47.0); Hemoglobin 10.6 g/dl (12.0-16.0); Mean Corpuscular Hemoglobin 28.4 pg (25.0-34.0); Mean Corpuscular Volume 89.8 fL (80.0-100.0); Platelet Count 324 K/uL (130-400); RDW Standard Deviation 53.5 fL (36.4-46.3); Red Blood Count 3.73 M/uL (4.20-5.40); White Blood Count 7.71 K/ul (4.8-10.8)
--- NOTE | 2024-12-10 10:18 | Podiatry Progress Note ---
Date of Service December 10, 2024 Assessment & Plan (1) Osteomyelitis of left foot: (2) Chronic ulcer of left foot with fat layer exposed: (3) Diabetic foot ulcer: Plan Postop day 1 status post partial first ray amputation of the left foot. - Angiogram rescheduled for 12/13/2024. - Surgical dressing changed. Dressing order placed for once daily dressing change with dry gauze dressing Willie and lightly applied Elias bandage total dressings in place. - Intraoperative bone and soft tissue cultures and proximal margin pathology pending. Given questionable integrity of the bone at the proximal margin intraoperatively would recommend patient remain in house until culture and pathology have resulted to allow for appropriate antibiotic adjustment prior to discharge. - Patient okay to begin weightbearing as tolerated to the left foot for short distance and transfer in cam walker with walker to assist. - Patient encouraged to elevate left lower extremity while at rest and avoid sitting with feet in dependent position for greater than half hour at a time. Admission and Anticipated Discharge Date Admission Date: December 02, 2024 Subjective Patient seen resting comfortably in bedside chair with foot elevated on stool and pillow behind heel. Denies pain to the left foot. Reports diarrhea overnight which in part prompted her to request postponement of today's planned angiogram. Reports minimal weightbearing to the left foot for short distance and transfer without discomfort. Review of Systems Review of Systems: Reports diarrhea overnight. Denies nausea vomiting fever chills. Physical Exam Physical Exam: Const: Appears well developed and well nourished. No signs of acute distress present. CV: Extremities: No cyanosis or edema. Capillary refill time is less than 2 seconds all digits of the bilateral foot. Posterior tibial and dorsalis pedis pulses are lightly to non palpable left and palpable on the right. Lymph: No palpable or visible regional lymphadenopathy. Neuro: Loss of protective sensation bilateral foot Psych: Mood/Affect: Mood is normal. Affect is normal. Cognition: Orientation is intact to person, place and time. Focused lower extremity musculoskeletal exam: Leg: No pain with compression of the calf muscle. Ankles: Normal to inspection and palpation. No swelling bilaterally. No tenderness bilaterally. Motor strength is intact. Range of motion pain-free and unlimited. Feet: Postop day #1 status post partial first ray amputation left foot. Surgical wound dressing is changed. Sanguinous drainage to the dressing. Serosanguineous drainage from proximal incision site. Wound edges remain well- approximated with all sutures intact. Capillary refill time along the incision less than 3 seconds. Mild erythema and edema to the left forefoot. No lymphangitis or streaking. Resolving ecchymosis to the lateral aspect of the left foot and plantar lateral foot Results & Data Results & Data Vital Signs (Past 12 Hours) Vital Signs Temp Pulse Pulse Resp BP Pulse Ox O2 Del Method 12/10/24 08:41 36.4 C L 69 16 115/71 98 Room Air 12/10/24 07:43 36.9 C 72 14 154/86 H 96 Room Air 12/10/24 02:07 36.6 C 67 16 148/67 H 93 Room Air Coding Level of Care Code 82132 Post Operative Follow-Up Diagnoses Subacute osteomyelitis of left foot M86.272 Osteomyelitis type: subacute Chronic ulcer of left foot with fat layer exposed L97.522 Diabetic ulcer of left midfoot associated with type 2 diabetes mellitus, unspecified ulcer stage E11.621; L97.429 Diabetes mellitus type: type 2 Diabetic foot ulcer location: midfoot Laterality: left Non-pressure ulcer stage: unspecified non-pressure ulcer stage (1) Osteomyelitis of left foot Osteomyelitis type: subacute Qualified Code(s): M86.272 - Subacute osteomyelitis, left ankle and foot (3) Diabetic foot ulcer Diabetes mellitus type: type 2 Diabetic foot ulcer location: midfoot Laterality: left Non-pressure ulcer stage: unspecified non-pressure ulcer stage Qualified Code(s): E11.621 - Type 2 diabetes mellitus with foot ulcer; L97.429 - Non-pressure chronic ulcer of left heel and midfoot with unspecified severity
[2024-12-11 07:04] LABS: Hematocrit (blood only) 32.0 % (37.0-47.0); Hemoglobin 10.1 g/dl (12.0-16.0); Mean Corpuscular Hemoglobin 28.2 pg (25.0-34.0); Mean Corpuscular Volume 89.4 fL (80.0-100.0); Platelet Count 326 K/uL (130-400); RDW Standard Deviation 52.7 fL (36.4-46.3); Red Blood Count 3.58 M/uL (4.20-5.40); White Blood Count 6.82 K/ul (4.8-10.8)
--- NOTE | 2024-12-11 07:19 | Hospitalist Progress Note ---
Date of Service December 11, 2024 Assessment & Plan (1) Diabetic peripheral neuropathy associated with type 2 diabetes mellitus: (2) Osteomyelitis of left foot: (3) Cerebrovascular disease: (4) Implantable intrathecal infusion pump present: (5) HERIBERTO (obstructive sleep apnea): (6) Candidiasis: Plan Patient is a 74yo F with PMHx of T2DM c/b peripheral neuropathy, CVA, GERD, HLD, HERIBERTO, and radiculopathies on morphine pump, who presents per referral of wound care clinic with chronic, non-healing ulcer of her left foot. # Non-healing foot ulcer Pt w/ L foot medial/plantar wound for >6 months. s/p excisional debridement on 07/01 and resection of osteomyelitis of sesamoid bone on 10/31. Ddx includes Osteo as most likely, as well as diabetic foot dz, repeated trauma, vs PAD vs venous stasis Wound culture from 11/11 grew MRSA. Culture obtained by wound clinic on 12/02 grew S. aureus X-ray foot demonstrated no osteomyelitis. Not the best imaging modality for this concern - foot MRI ordered MRI completed on 12/05 showed indications of osteomyelitis at left 1st metatarsal and proximal phalanx Podiatry consulted !st ray amputation completed 12/09 NWB L LE until 12/11, partial weight bearing with CAM boot Pain control with Tylenol PO, Oxycodone/acetaminophen po, or IV hydromorphone PRN Vascular consult completed- arteriogram postponed until 12/13 PT/OT eval ordered, awaiting recommendations Continue IV cefepime and dapto Wound care consulted, appreciate recs Candidiasis of skin folds - Continue nystatin cream BID to affected areas T2DM w/ neuropathy most recent a1c on 11/09/24 was 7.3% continue glipizide, metformin, gabapentin bsg ACHS Radiculopathies / Pain pump Intrathecal morphine pump palpable in right-middle abdomen KUB ordered to confirm pump placement Per public health technologist recommendation, pain management consulted to manage pump after foot MRI Continue home pain meds HTN - continue HCTZ GERD - continue pepcid, protonix STEPHEN/depression - continue duloxetine Diet: DM2 VTE ppx: lovenox Dispo: admit to med-surg, anticipate eventual discharge home Code: Full Admission and Anticipated Discharge Date Admission Date: December 02, 2024 Supervising Physician Co-Signing Physician Notes ATTESTATION I also saw the patient and confirmed sims portions of the history and exam. I agree with the impression and plan in the resident documentation, and as summarized below. She is without complaints. Denies much in the way of pain or discomfort. EXAM VS as noted A/O. NAD CV regular Respirations non labored Surgical site bandaged DATA Labs HgB 10.1 BMP WNL Micro Surgical cultures 12/09 no growth to date IMPRESSION & PLAN Non healing foot ulcer in the setting of PVD and DM S/P first ray amputation left foot, POD #2 Cellulitis left lower limb Continue current antibiotics pending cultures Lovenox for DVT prophylaxis PT Vascular study Friday Additional per resident documentation Subjective No acute events overnight. This morning, pt reports left foot pain is controlled with activity modifications and current pain meds. Pt reports she is trying to minimize weight bearing, but has difficulty with transfer and ambulation. Putting weight on her left foot causes the most pain. Pt continues with rash under both breasts, but with minimal pruritis. Pt has not had another episode of diarrhea since early yesterday normal. Eating normal diet. Denies CP, SOB, abdominal pain, N/V/D/C, dizziness or headahces. Review of Systems Review of Systems: reviewed, per HPI Physical Exam Physical Exam: Constitutional: well-appearing, no acute distress HEENT: NCAT, no conjunctival injection CV: regular rhythm, no murmur appreciated, extremities well-perfused Resp: CTABL, no wheezes/rales/rhonchi appreciated, no increased work of breathing GI: soft, nondistended, nontender, BS normoactive MSK: Able to lift and move L LE without assist Skin: L foot is wrapped in MARQUISE bandage. No drainage noted from area of 1st toe. Minimal edema at ankle and remaining toes. Neuro: alert, oriented, no focal neurologic deficit appreciated Results & Data Results & Data Vital Signs (Past 12 Hours) Vital Signs Temp Pulse Resp BP Pulse Ox O2 Del Method 12/11/24 07:02 36.6 C 64 16 147/77 H 94 Room Air 12/10/24 19:32 36.9 C 75 18 122/70 95 Room Air Resident Activity Tracking Resident Involvement: Resident Care Provided Care Provided: Adult Hospital Medicine (2) Osteomyelitis of left foot Osteomyelitis type: subacute Qualified Code(s): M86.272 - Subacute osteomyelitis, left ankle and foot
[2024-12-11 07:22] LABS: Anion Gap 9.0 (3-11); Blood Urea Nitrogen 12.0 mg/dl (6-23); Calcium 9.2 mg/dl (8.6-10.3); Carbon Dioxide 27.0 mmol/L (21-32); Chloride 105.0 mmol/L (98-107); Creatinine Clr Calc Pharmacy 79.5 ml/min; Glucose 74.0 mg/dl (70-99(Fasting)); Potassium 3.8 mmol/L (3.5-5.1); Sodium 141.0 mmol/L (136-145)
[2024-12-12 06:07] LABS: Hematocrit (blood only) 34.7 % (37.0-47.0); Hemoglobin 10.9 g/dl (12.0-16.0); Mean Corpuscular Hemoglobin 28.1 pg (25.0-34.0); Mean Corpuscular Volume 89.4 fL (80.0-100.0); Platelet Count 350 K/uL (130-400); RDW Standard Deviation 53.2 fL (36.4-46.3); Red Blood Count 3.88 M/uL (4.20-5.40); White Blood Count 6.84 K/ul (4.8-10.8)
--- NOTE | 2024-12-12 07:09 | Hospitalist Progress Note ---
Date of Service December 12, 2024 Assessment & Plan (1) Diabetic peripheral neuropathy associated with type 2 diabetes mellitus: (2) Osteomyelitis of left foot: (3) Cerebrovascular disease: (4) Implantable intrathecal infusion pump present: (5) HERIBERTO (obstructive sleep apnea): (6) Candidiasis: Plan Patient is a 74yo F with PMHx of T2DM c/b peripheral neuropathy, CVA, GERD, HLD, HERIBERTO, and radiculopathies on morphine pump, who presents per referral of wound care clinic with chronic, non-healing ulcer of her left foot. # Non-healing foot ulcer Pt w/ L foot medial/plantar wound for >6 months. s/p excisional debridement on 07/01 and resection of osteomyelitis of sesamoid bone on 10/31. Ddx includes Osteo as most likely, as well as diabetic foot dz, repeated trauma, vs PAD vs venous stasis Wound culture from 11/11 grew MRSA. Culture obtained by wound clinic on 12/02 grew S. aureus X-ray foot demonstrated no osteomyelitis. Not the best imaging modality for this concern - foot MRI ordered MRI completed on 12/05 showed indications of osteomyelitis at left 1st metatarsal and proximal phalanx Podiatry consulted !st ray amputation completed 12/09 Partial weight/WBAT with CAM boot using AD Pain control with Tylenol PO, Oxycodone/acetaminophen po, or IV hydromorphone PRN Vascular consult completed- arteriogram scheduled for 12/13 NPO after midnight PT/OT eval ordered, recommend home with assist from Continue IV cefepime and dapto Wound care consulted, appreciate recs Candidiasis of skin folds- improving - Continue nystatin cream BID to affected areas T2DM w/ neuropathy most recent a1c on 11/09/24 was 7.3% continue glipizide, metformin, gabapentin bsg ACHS Radiculopathies / Pain pump Intrathecal morphine pump palpable in right-middle abdomen KUB ordered to confirm pump placement Per nanotechnologist recommendation, pain management consulted to manage pump after foot MRI Continue home pain meds HTN - continue HCTZ GERD - continue pepcid, protonix STEPHEN/depression - continue duloxetine Diet: DM2 VTE ppx: lovenox Dispo: admit to med-surg, anticipate eventual discharge home Code: Full Admission and Anticipated Discharge Date Admission Date: December 02, 2024 Supervising Physician Co-Signing Physician Notes ATTESTATION I also saw the patient and confirmed sims portions of the history and exam. I agree with the impression and plan in the resident documentation, and as summarized below. Seated in bedside chair. No real pain from foot. Reviewed tomorrow's vascular study - she is still a little nervous. EXAM 131/75, 75, 16, 36.6 A/O. NAD CV regular Respirations non labored Surgical site bandaged DATA Labs HgB 10.9 Micro Surgical cultures 12/09 no growth to date IMPRESSION & PLAN Non healing foot ulcer in the setting of PVD and DM S/P first ray amputation left foot, POD #3 Cellulitis left lower limb Continue current antibiotics Lovenox for DVT prophylaxis - hold in AM Continue PT Vascular study Friday - may need some Ativan tomorrow AM Additional per resident documentation Subjective No acute events overnight. This morning, pt reports left foot pain is minimal and she is not requesting pain medication. She denies any diarrhea events since Friday morning. Pt is concerned about having to lay flat on her back following the vascular procedure tomorrow. She has had chronic low back pain that is exacerbated by laying on kim back. Discussed ways we can help her cope with low back pain and anxiety while she is recovering post arteriogram. Pt continues with rash under breasts has improved with wearing a bra as well as using the nystatin cream BID. Denies CP, SOB, abdominal pain, N/V/D/C, dizziness or headaches. Pt endoreses increased frequency of urination last night, but denies dysuria, suprapubic pain our hematuria Review of Systems Review of Systems: reviewed, per HPI Physical Exam Physical Exam: Constitutional: well-appearing, no acute distress HEENT: NCAT, no conjunctival injection CV: regular rhythm, no murmur appreciated, extremities well-perfused Resp: CTABL, no wheezes/rales/rhonchi appreciated, no increased work of breathing GI: soft, nondistended, nontender, BS normoactive MSK: Able to lift and move L LE without assist Skin: L foot is wrapped in MARQUISE bandage. No drainage noted from area of 1st toe. Minimal edema at ankle and remaining toes. Neuro: alert, oriented, no focal neurologic deficit appreciated Results & Data Results & Data Vital Signs (Past 12 Hours) Vital Signs Temp Pulse Resp BP Pulse Ox O2 Del Method 12/11/24 19:35 36.5 C 66 16 124/71 97 Room Air Resident Activity Tracking Resident Involvement: Resident Care Provided Care Provided: Adult Hospital Medicine (2) Osteomyelitis of left foot Osteomyelitis type: subacute Qualified Code(s): M86.272 - Subacute osteomyelitis, left ankle and foot
[2024-12-12] MEDS: LORazepam 0.5 MG TAB PO ONE (20:08)
[2024-12-12] MEDS: LOPERAMIDE HCL 2 MG CAP PO STA (23:21)
[2024-12-13 07:13] LABS: Hematocrit (blood only) 34.3 % (37.0-47.0); Hemoglobin 11.1 g/dl (12.0-16.0); Mean Corpuscular Hemoglobin 28.8 pg (25.0-34.0); Mean Corpuscular Volume 88.9 fL (80.0-100.0); Platelet Count 380 K/uL (130-400); RDW Standard Deviation 53.5 fL (36.4-46.3); Red Blood Count 3.86 M/uL (4.20-5.40); White Blood Count 7.12 K/ul (4.8-10.8)
--- NOTE | 2024-12-13 07:30 | Podiatry Progress Note ---
Date of Service December 13, 2024 Assessment & Plan (1) Osteomyelitis of left foot: (2) Chronic ulcer of left foot with fat layer exposed: (3) Diabetic foot ulcer: Plan Postop day 4 status post partial first ray amputation of the left foot. - Angiogram scheduled for 12/13/2024. - Dressing changed. Continue once daily dressing change with dry gauze dressing Willie and lightly applied Elias bandage total dressings in place. - Intraoperative bone and soft tissue cultures pending with no growth to date - Proximal margin pathology pending. Given questionable integrity of the bone at the proximal margin intraoperatively would recommend patient remain in house until culture and pathology have resulted to allow for appropriate antibiotic adjustment prior to discharge. - Patient okay to continue weightbearing as tolerated to the left foot for short distance and transfer in cam walker with walker to assist. - Patient encouraged to elevate left lower extremity while at rest and avoid sitting with feet in dependent position for greater than half hour at a time. Starting to see some dehiscence along the incision site central to approximately which is the location was relatively distant from the initial wound or site of infection. Possible vascular component contributing to dehiscence versus ongoing infection versus delayed healing due to drainage from placement of absorbable antibiotic beads. Scheduled for left lower extremity angiogram with Dr. Hampton this afternoon. Will continue to monitor and adjust wound care recommendations as necessary. No expectation for further podiatric surgery during this admission. Admission and Anticipated Discharge Date Admission Date: December 02, 2024 Subjective Patient resting comfortably in bedside chair with cam walker in place to the left foot. Denies any issues over the weekend. Denies pain to the left foot. Reports no further diarrhea. Scheduled to move forward with left lower ext remity angiogram later this afternoon. Review of Systems Review of Systems: Denies diarrhea over the weekend. Denies nausea, vomiting, fever, chills. Denies pain in left foot. Physical Exam Physical Exam: Const: Appears well developed and well nourished. No signs of acute distress present. CV: Extremities: No cyanosis or edema. Capillary refill time is less than 2 seconds all digits of the bilateral foot. Lymph: No palpable or visible regional lymphadenopathy. Neuro: Loss of protective sensation bilateral foot Psych: Mood/Affect: Mood is normal. Affect is normal. Cognition: Orientation is intact to person, place and time. Focused lower extremity musculoskeletal exam: Leg: No pain with compression of the calf muscle. Ankles: Normal to inspection and palpation. No swelling bilaterally. No tenderne ss bilaterally. Motor strength is intact. Range of motion pain-free and unlimited. Feet: Postop day #4 status post partial first ray amputation left foot. Surgical wound dressing is changed. Serosanguineous drainage from proximal and central incision site with early signs of dehiscence centrally. Capillary refill time along the incision less than 3 seconds. Decreased erythema and edema to the left forefoot. No lymphangitis or streaking. Resolving ecchymosis to the lateral aspect of the left foot and plantar lateral foot Results & Data Results & Data Vital Signs (Past 12 Hours) Vital Signs Temp Pulse Resp BP Pulse Ox O2 Del Method 12/12/24 23:08 36.6 C 65 16 130/74 96 Room Air Coding Level of Care Code 38761 Post Operative Follow-Up Diagnoses Subacute osteomyelitis of left foot M86.272 Osteomyelitis type: subacute Chronic ulcer of left foot with fat layer exposed L97.522 Diabetic ulcer of left midfoot associated with type 2 diabetes mellitus, unspecified ulcer stage E11.621; L97.429 Diabetes mellitus type: type 2 Diabetic foot ulcer location: midfoot Laterality: left Non-pressure ulcer stage: unspecified non-pressure ulcer stage (1) Osteomyelitis of left foot Osteomyelitis type: subacute Qualified Code(s): M86.272 - Subacute osteomyelitis, left ankle and foot (3) Diabetic foot ulcer Diabetes mellitus type: type 2 Diabetic foot ulcer location: midfoot Laterality: left Non-pressure ulcer stage: unspecified non-pressure ulcer stage Qualified Code(s): E11.621 - Type 2 diabetes mellitus with foot ulcer; L97.429 - Non-pressure chronic ulcer of left heel and midfoot with unspecified severity
--- NOTE | 2024-12-13 07:54 | Infectious Disease Progress Nt ---
Date of Service December 13, 2024 Assessment & Plan (1) Peripheral vascular disease in diabetes mellitus: Plan: Plan for angiogram this afternoon. Admission and Anticipated Discharge Date Admission Date: December 02, 2024 Subjective Experienced mild diarrhea last evening. None this morning. Improved relative to Friday. No other relevant clinical changes. Physical Exam Physical Exam: Left foot dressing in place. Dry. Changed by Podiatry already. Results & Data Vital Signs (Past 12 Hours) Vital Signs Temp Pulse Pulse Resp BP Pulse Ox O2 Del Method 12/13/24 07:24 36.5 C 76 16 150/80 H 93 Room Air 12/12/24 23:08 36.6 C 65 16 130/74 96 Room Air
[2024-12-13] MEDS: LORazepam 0.5 MG TAB PO STA (12:04)
[2024-12-13] MEDS: LOPERAMIDE HCL 2 MG CAP PO STA (12:04)
--- NOTE | 2024-12-13 13:22 | Pre Anesthesia Assessment ---
Date of Service December 13, 2024 Pre Sedation Assessment Vital Signs Temp Pulse Pulse Resp BP Pulse Ox O2 Del Method 12/13/24 12:54 86 14 164/99 H 94 Room Air 12/13/24 11:06 36.6 C 80 15 150/78 H 95 Room Air 12/13/24 07:24 36.5 C 76 16 150/80 H 93 Room Air 12/12/24 23:08 36.6 C 65 16 130/74 96 Room Air 12/12/24 13:47 36.9 C 78 16 148/81 H 93 Room Air Cardiovascular RRR, no murmur, no edema Respiratory normal respiratory effort, lungs clear to auscultation Pre-Sedation Airway Assessment Smoking Status: Never smoker Hx Sleep Apnea: No Short, Thick Neck: No Thyromental Distance: > or= 3.5 Finger Breadths Oral Cavity: + Dentures Mallampati Class: III ASA: ASA3 NPO Status Date of Last Intake of Fluids: 12/09/24 Time of Last Intake of Fluids: 20:00 Date of Last Intake of Solid Food: 12/09/24 Time of Last Intake of Solid Foods: 20:00 Procedure Planning Current Medications Reviewed: Yes Notes The planned sedation has been discussed with the patient. Informed Consent was obtained. I have identified the patient, determined the appropriateness of sedation and have assessed the patient immediately prior to the procedure. All medicine(s) and interventions are by my order.
[2024-12-13] MEDS: LIDOCAINE 1% LOCAL 20 ML VIAL ONE (14:16)
[2024-12-13] MEDS: MIDAZOLAM HCL 5 MG/ML 1 ML VIAL ONE (14:17)
[2024-12-13] MEDS: HEPARIN (PORCINE) 1000 UNIT/ML 10 ML (CATH LAB USE ONLY) ONE (14:17)
--- NOTE | 2024-12-13 14:18 | Post Anesthesia Assessment ---
Date of Service December 13, 2024 Post Sedation Assessment Vital Signs Temp Pulse Pulse Resp BP Pulse Ox O2 Del Method 12/13/24 12:54 86 14 164/99 H 94 Room Air 12/13/24 11:06 36.6 C 80 15 150/78 H 95 Room Air 12/13/24 07:24 36.5 C 76 16 150/80 H 93 Room Air 12/12/24 23:08 36.6 C 65 16 130/74 96 Room Air Recovery Score Activity: Moves 4 extremities Respiration: Deep Breath/Cough Circulation: +/-20% PreAnes Value Consciousness: Fully Awake Oxygen Saturation: > 92% On Room Air Post Anesthesia Score: 8 Discharge Sedation Level of Care: Phase I Post Sedation Plan On clinical assessment, the patient appears to have tolerated the sedation without complications. Patient is recovering as anticipated. Patient will continue to be monitored by nursing and may be discharged when sedation discharge criteria are met per below protocol. Upon Completions of procedure up to 15 minutes continue every 5 minute vital signs and the P.A.R. score; then discharge to a Phase I or Fast Track to Phase II per the following guidelines: * Discharge Patient to appropriate Phase II area if PAR is 8 or greater or return to pre- procedure baseline. The post - procedure orders will be as directed. * If PAR score is less than 8 or not return to pre-procedure baseline then patient will follow Phase I monitoring till PAR is reached for Phase II. The Phase I may be done in procedure room or may call to secure a Phase I area. * If naloxone or flumazenil are used for reversal, hold in Phase I for continued monitoring from when last reversal dose was given for a minimum of 60 minutes or longer pending the nurse and/or physician discretion of patient condition before discharge to Phase II. Please call the Sedation Physician to re-evaluate and complete post-note for discharge to Phase II area. Do NOT discharge from procedure sedation or Phase 1 until post- sedation evaluation note is complete by procedure /sedation MD Sedation Discharge Instructions to be given to the patient at discharge to home.
--- NOTE | 2024-12-13 14:29 | Endovascular Procedure Note ---
[facility] Endovascular Procedure Rpt Pre & Post Diagnosis Operation Date: 12/13/24 13:00 <No data on this case meets the specified criteria> I identified the patient and participated in the time-out.: Yes Procedure Operation Date: 12/13/24 13:00 Actual Procedures p Angio Extremity Unilateral - Earl Hampton MD Surgeon Earl Hampton MD Inventory Worker none Estimated Blood Loss 5 Findings Consistent with Post-Op Diagnosis Fluids 60cc Anesthesia Type RN Sedation Radiation Exposure (mGv) Radiation (mGy): 389 Contrast Contrast: 36cc Disposition Accompanied Patient To Recovery: Yes Disposition: [employer] Indications Nonhealing left foot wound Description of Procedure A timeout was performed and the patient was identified and the procedure verified. Conscious sedation was administered under my direction. Total sedation time was 29 minutes. The right groin was prepped and draped in the usual sterile fashion. Ultrasound was used to identify the common femoral artery. It was accessed with a micropuncture needle on the first pass. A mandrel wire was inserted under fluoroscopic control. This was then upsized to a micropuncture sheath. A J- wire was inserted and a 5 Amharic sheath was placed under fluoroscopic control. A rim catheter was then placed over a 0.035 inch Glidewire into the distal abdominal aorta and limited abdominal aortography was performed. This demonstrated no significant disease of the distal abdominal aorta either common internal or external iliac artery. The left common and external iliac arteries were selectively catheterized. Subsequent to this, the left superficial femoral artery was selectively catheterized. Left lower extremity diagnostic arteriography was then performed demonstrating no significant disease of the left common and superficial or deep femoral arteries. The popliteal artery had some diffuse plaque but no flow-limiting stenosis. The anterior tibial artery h ad more sluggish flow than the remaining tibial arteries but there was no evidence of an obstructive lesion. All 3 tibial arteries were patent to the ankle. The posterior tibial and dorsalis pedis arteries cross the ankle with a full plantar arch present. There was some mild (50%) disease at the origin of the dorsalis pedis artery at the level of the ankle. I did not choose to intervene upon this. The catheter was then removed. The sheath was pulled with pressure held to achieve hemostasis. The patient tolerated procedure well without immediate complication. I attest to the content of the Intraoperative Record and any orders documented therein. Any exceptions are noted below. Vascular Charges Angiography/Venography Procedure 1: Angiography/Venography charges: [id number] Initial 3rd order or selective abd, pelvic, or LE branch Procedure 2: Angiography/Venography charges: [id number] Aortography, abdominal, by serialography, radiological S&I (limited) Procedure 3: Angiography/Venography charges: [id number] Angiography, extremity, unilateral, radiological S&I Additional Services Procedure 1: Additional Services Charges: 95117 Ultrasound guidance - vascular access Procedure 2: Additional Services Charges: 18001 Moderate sedation initial 15 min Procedure 3: Additional Services Charges: 21565 Moderate sedation, each additional 15 min
[2024-12-13] MEDS: ATROPINE SULFATE 0.1 MG/ML 10ML SYR IV ONE (16:51)
--- NOTE | 2024-12-13 16:53 | Hospitalist Progress Note ---
"Date of Service December 13, 2024 Assessment & Plan (1) Diabetic peripheral neuropathy associated with type 2 diabetes mellitus: (2) Osteomyelitis of left foot: (3) Cerebrovascular disease: (4) Implantable intrathecal infusion pump present: (5) HERIBERTO (obstructive sleep apnea): (6) Candidiasis: Plan Patient is a 74yo F with PMHx of T2DM c/b peripheral neuropathy, CVA, GERD, HLD, HERIBERTO, and radiculopathies on morphine pump, who presents per referral of wound care clinic with chronic, non-healing ulcer of her left foot. #Non-healing foot ulcer Pt w/ L foot medial/plantar wound for >6 months. s/p excisional debridement on 07/01 and resection of osteomyelitis of sesamoid bone on 10/31. Ddx includes Osteo as most likely, as well as diabetic foot dz, repeated trauma, vs PAD vs venous stasis Wound culture from 11/11 grew MRSA. Culture obtained by wound clinic on 12/02 grew S. aureus X-ray foot demonstrated no osteomyelitis. Not the best imaging modality for this concern - foot MRI ordered MRI completed on 12/05 showed indications of osteomyelitis at left 1st metatarsal and proximal phalanx Podiatry consult appreciated First ray amputation completed 12/09 Pain control with Tylenol PO, Oxycodone/acetaminophen po, or IV hydromorphone PRN Vascular consult appreciated Arteriogram with Dr. Hampton performed on 12/13 Activity: bedrest following procedure Continue to gradually wean off of supplemental oxygen PT/OT evaluations appreciated Patient was previously on IV cefepime and daptomycin up until 12/11; unclear if these medications dropped off or were discontinued Wound culture on 12/02/2024 growing Staphylococcus aureus with sensitivity to oxacillin Case discussed with Dr. Christianson; given staph aureus, will downgrade abx Ancef 2000 mg IV q8h perioperatively #Candidiasis of skin folds - improving Continue nystatin cream BID to affected areas #Diarrhea Loperamide PRN #T2DM w/ neuropathy most recent a1c on 11/09/24 was 7.3% Continue glipizide, metformin as hopeful discharge soon Continue gabapentin for neuropathic pain BSG ACHS #Radiculopathies | Pain pump Intrathecal morphine pump palpable in right-middle abdomen KUB ordered to confirm pump placement Per hvac technician residential recommendation, pain management consulted to manage pump after foot MRI Continue home pain meds #HTN - continue HCTZ #GERD - continue pepcid, protonix #STEPHEN/depression - continue duloxetine VTE ppx: Lovenox was held the evening of 12/12, okay to restart on 12/13 following procedure Dispo: Continued stay on [facility] Admission and Anticipated Discharge Date Admission Date: December 02, 2024 Supervising Physician Co-Signing Physician Notes The patient was not seen by me. The chart was reviewed. Case discussed with EJ Crisostomo. Agree with assessment and plan Subjective Mrs. Elizabeth is resting peacefully in bed following her arteriogram. (Chris) is at bedside. Patient reports she has no pain in her legs or feet bilaterally. She does feel somewhat hungry following her procedure. Normally she is not on supplemental oxygen at baseline or CPAP at night. Overall, she reports she feels well, but is just tired following her procedure. Her only other complaint is that she had diarrhea earlier in the day. ROS: Patient endorses diarrhea. Patient denies fever, chills, sweating, chest pain, SOB, cough, abdominal pain, N/V, pain in the legs, or numbness or tingling in the legs or feet. Review of Systems Review of Systems: See HPI above Physical Exam Physical Exam: General: no acute distress; patient appears tired following her procedure; family at bedside; non-toxic appearing; well-nourished; cooperative; SpO2 97% on 2L NC HEENT: normocephalic, atraumatic; no scleral icterus; PERRLA; vision and hearing grossly intact Neck: supple; no lymphadenopathy; trachea midline Skin: warm, dry without signs of tenting; no cyanosis; no rashes, bruising, lesions, or erythema noted CV: chest wall NTP; RRR; S1/S2 normal; no murmurs/rubs/gallops; pulses intact and symmetric at radial, DP, and PT Lungs: no acute respiratory distress; symmetrical chest wall expansion; clear breath sounds across all lung villanueva w/o adventitious sounds; no wheezing ABD: Soft, NTP; BS present; no rebound/guarding; no distention MSK: no tics or fasciculations; no edema noted in the LEs b/l, nonerythematous; patient demonstrates ability wiggle toes bilaterally; patient demonstrates ability to lift legs from the bed bilaterally against resistance without unilateral deficits Neuro: A&Ox3; normal mood and affect; fluent speech; no focal deficits; patient report sensation is intact and symmetric in the lower extremities bilaterally assessed via light touch Results & Data Results & Data Vital Signs (Past 12 Hours) Vital Signs Temp Pulse Pulse Resp BP Pulse Ox O2 Del Method 12/13/24 16:32 76 12/13/24 16:00 72 16 145/82 H 99 Nasal Cannula 12/13/24 15:45 73 16 141/81 H 98 Nasal Cannula 12/13/24 15:24 36.6 C 76 15 151/78 H 12/13/24 14:50 57 L 15 161/85 H 92 Room Air 12/13/24 14:45 73 14 138/79 96 Room Air 12/13/24 14:40 70 16 149/78 H 94 Room Air 12/13/24 14:35 62 16 149/81 H 92 Room Air 12/13/24 14:30 59 L 15 130/69 92 Room Air 12/13/24 12:54 86 14 164/99 H 94 Room Air 12/13/24 11:06 36.6 C 80 15 150/78 H 95 Room Air 12/13/24 07:24 36.5 C 76 16 150/80 H 93 Room Air O2 Flow Rate 12/13/24 16:32 12/13/24 16:00 2 12/13/24 15:45 2 12/13/24 15:24 12/13/24 14:50 12/13/24 14:45 12/13/24 14:40 12/13/24 14:35 12/13/24 14:30 12/13/24 12:54 12/13/24 11:06 12/13/24 07:24 PG Care Time/CCT Total # of Minutes Spent Total Time Spent with Patient: Total time spent is greater than 50% in coordination of care (as documented) at patient's floor/unit and/or counseling patient: Coding [place] [address] SUB INP/OBS CARE 2/35MIN Patient Type Established Medical Decision Making Moderate Complexity Diagnoses Diabetic peripheral neuropathy associated with type 2 diabetes mellitus E11.42 Subacute osteomyelitis of left foot M86.272 Osteomyelitis type: subacute Cerebrovascular disease I67.9 Implantable intrathecal infusion pump present Z96.89 HERIBERTO (obstructive sleep apnea) G47.33 Candidiasis B37.9 (2) Osteomyelitis of left foot Osteomyelitis type: subacute Qualified Code(s): M86.272 - Subacute osteomyelitis, left ankle and foot"
[2024-12-13 19:45] VITALS: RESP 18
[2024-12-13 23:42] VITALS: O2SAT 94
[2024-12-14 05:48] LABS: Hematocrit (blood only) 35.6 % (37.0-47.0); Hemoglobin 11.4 g/dl (12.0-16.0); Mean Corpuscular Hemoglobin 28.6 pg (25.0-34.0); Mean Corpuscular Volume 89.4 fL (80.0-100.0); Platelet Count 379 K/uL (130-400); RDW Standard Deviation 54.1 fL (36.4-46.3); Red Blood Count 3.98 M/uL (4.20-5.40); White Blood Count 8.19 K/ul (4.8-10.8)
[2024-12-14] MEDS: guaiFENesin 600 MG TABCR PO PRN (08:25)
[2024-12-14 11:14] VITALS: BP 125/80; PULSE 92; TEMP 98.4
--- NOTE | 2024-12-14 12:41 | Discharge Summary ---
"Discharge Summary Date of Service December 14, 2024 Principal Dx & Hospital Course #1 = Principal Diagnosis (1) Diabetic peripheral neuropathy associated with type 2 diabetes mellitus: (2) Osteomyelitis of left foot: (3) Cerebrovascular disease: (4) Implantable intrathecal infusion pump present: (5) HERIBERTO (obstructive sleep apnea): (6) Candidiasis: Plan #Non-healing foot ulcer | Osteomyelitis Patient is a 74yo F with PMHx of T2DM c/b peripheral neuropathy, CVA, GERD, HLD, HERIBERTO, and radiculopathies on morphine pump, who presents per referral of wound care clinic with chronic, non-healing ulcer of her left foot. Pt w/ L foot medial/plantar wound for >6 months. s/p excisional debridement on 07/01 and resection of osteomyelitis of sesamoid bone on 10/31. MRI completed on 12/05 showed indications of osteomyelitis at left 1st metatarsal and proximal phalanx. Podiatry consult appreciated -1st toe amputation completed 12/09, wound culture with staph aureus - sensitive to oxacillin. Pathology reports osteomyelitis, dis cussed with Dr. Russell, good margins, feels that PO antibiotics appropriate, discharged with keflex. Had Vascular consult - Arteriogram with Dr. Hampton performed on 12/13 showing adequate blood flow, no intervention. PT/OT rec home #Candidiasis of skin folds - improving Continue nystatin cream BID to affected areas #Diarrhea - Loperamide PRN #T2DM w/ neuropathy most recent a1c on 11/09/24 was 7.3%, Continue glipizide, metformin Continue gabapentin for neuropathic pain #Radiculopathies | Pain pump Intrathecal morphine pump palpable in right-middle abdomen. Continue home pain meds #HTN - continue HCTZ #GERD - continue pepcid, protonix #STEPHEN/depression - continue duloxetine Dispo: discharge to home today with podiatry and wound care follow up Notes For Next Care Provider needs good wound care Medication Changes From Visit keflex nystatin cream Admission HPI Per Admitting Provider Patient with PMHx significant for DM2 c/b neuropathy who has been having diabetic foot ulcer since May 2024. Went to wound clinic in Jun (at dtr's urging as foot wound was couple weeks old by then). They referred her to the hospital; she was admitted end Jun. Had excisional wound debridement w/ Dr. Paige on 07/01. Continued weekly f/u appts w/ wound care clinic. Ulcer on plantar surface of L great toe had fluctuating, but overall positive, progress. Pt also developed multiple ecchymoses on lateral aspect of L foot and ulcer on medial aspect of L great toe. Had 2nd operation on foot for resection of osteomyelitis of sesamoid bone, w/ Dr. Plunkett on 11/11. Was started on linezolid and continued weekly wound care clinic appts. At appt last Friday, was changed to Bactrim. Reports that since this procedure, it hurts to walk on her left foot. In fact, the pain now radiates from her foot up the back of her left leg to approx level of the knee, which is a new issue not previously a/w her foot wound. The pain is constant and sharp; she says it feels like walking on a piece of glass. Intensity at best 6/10 but at worst can be up to 10/10. Says there is no good position to relieve the sx. She did have pain meds (percs) after the operation, has been taking about half a tab for the past week, says the effect only lasts 15~30 min. At her wound care appt today, they noted discharge from wound & advised she go to ED. Patient has not noticed any bleeding or drainage herself. Denies fever, chills, fatigue, CP, SOB, cough, palpitations, or n/v. Has had diarrhea, likely a/w freq abx use. Also reports FRAZIER & white spots in L eye - both intermittent, do not appear a/w wound, but did develop around the same time In ED, pt is afebrile, satting well on RA, given 1L nss, 2g cefepime, 1750mg vanc. Not given anything for pain but notes it is currently 7/10. Discharge Exam General: NAD, VS as above Resp: normal respiratory effort, lungs clear to auscultation CV: RRR, no murmur, Abd: normal bowel sounds, non tender, no hepatosplenomegaly Extremities: Moves all extremities, small area of dehiscence on foot wound - viewed with Podiatry Neuro: A&O x3, Skin: mild erythema to skin folds Discharge Plan Discharge Items Patient Disposition: Home - Self-Care Reason For Visit: NONHEALING FOOT ULCER Discharge Diagnosis: Osteomylitis s/p amputation Condition on Discharge: Fair Activity: Resume your previous activity Activity Comment: keep boot in place Weightbearing: Full weightbearing Non-emergency contact: Primary Care Provider Call non-emergency contact if: you have any medication questions, your symptoms worsen, your pain is not controlled and your temperature is above 101 Follow-up/Referrals: Rachelle Arroyo CRNP [Nurse Practitioner] - 12/17/24 9:00 am (wound care follow up ) Gerardo Plunkett DPM [Surgeon] - (Dr. Plunkett's office will call Pt to schedule) Tsering Casper MD [Primary Care Provider] - 12/20/24 4:05 pm (follow up with one week ) Diet: Carb Consistent or DM2 Addtl Attending Provider Instructions: Ms. Elizabeth You were hospitalized after having worsening redness and pain of the left foot. You were given antibiotics and seen by podiatry. This resulted in surgery and amputation of your 1st toe. The pathology did show that this bone was infected with part of the toe that had from infection. In discussion with Dr. Plunkett, he believes this will be best treated with oral antibiotics and good wound care follow up. You had a vascular study that did show that you should have good blood flow to the foot for wound healing. You can weightbear as tolerated on that left leg - dr. plunkett recommends only short distances, and avoid sitting with feet down for more than an hour. Please follow up with your PCP within one week. Follow up with Dr. Plunkett as directed. You will also need follow up in the wound care clinic - they should contact you with an appointment. If you do not hear from them by Friday please call the number above. Take two doses of Keflex tonight. Take the whole coarse even if you feel well. CONTACT YOUR PRIMARY CARE PROVIDER if you experience any of the following: Shortness of breath or difficulty breathing Fevers or chills Feeling tired with normal activity or experiencing dizziness or fainting Difficulty following your treatment plan, or difficulty taking medications CALL 911 OR GO TO THE EMERGENCY DEPARTMENT if you experience any of the following: Severe abdominal pain or nausea/vomiting Severe chest pain, or chest pain that radiates (moves) to your jaw or arm Sudden, severe shortness of breath or difficulty breathing Thank you for allowing us to participate in your care. Pending Studies at Discharge: No Stand-Alone Forms: My [facility], Smoking Cessation Medications and DC Order Prescriptions: New nystatin 100,000 unit/gram Ointment 1 applic EXT BID Qty: 15 1RF Rx Instructions: for skin infection cephalexin 500 mg capsule 500 mg PO Q6H 10 Days Qty: 40 0RF Continued duloxetine [Cymbalta] 60 mg capsule,delayed release(DR/EC) 60 mg PO QAM famotidine 40 mg tablet 40 mg PO QPM hydrochlorothiazide 25 mg tablet 25 mg PO QAM metformin 1,000 mg tablet 1,000 mg PO BID glipizide 2.5 mg tablet extended release 24hr 2.5 mg PO BID pantoprazole 40 mg tablet,delayed release (DR/EC) 40 mg PO QAM gabapentin 300 mg capsule 900 mg PO TID Patient Comments: TAKES 3 TAB TID triamcinolone acetonide 0.1 % cream 1 applic TOPICAL DAILY PRN (Reason: dry legs) acetaminophen 325 mg Tablet 650 mg PO Q4H PRN (Reason: pain) Qty: 30 0RF magnesium 250 mg tablet 250 mg PO HS Qty: 30 0RF multivitamin Tablet 1 tab PO QAM ipratropium-albuterol 0.5 mg-3 mg(2.5 mg base)/3 mL Solution For Nebulization 3 ml NEB Q4R PRN (Reason: shortness of breath) Qty: 90 0RF guaifenesin [Mucinex] 600 mg tablet extended release 12hr 1,200 mg PO Q12 PRN (Reason: Congestion) celecoxib [Celebrex] 100 mg capsule 100 mg PO QAM clopidogrel [Plavix] 75 mg Tablet 75 mg PO QAM vitamin B complex Capsule 1 cap PO DAILY oxycodone-acetaminophen [Endocet] 5-325 mg tablet 1 tab PO Q6H PRN (Reason: pain) Qty: 20 0RF pramipexole 0.25 mg Tablet 0.25 mg PO HS pramipexole 0.5 mg Tablet 0.5 mg PO 1700 Discontinued sulfamethoxazole-trimethoprim [Bactrim] 400-80 mg tablet 1 tab PO BID Qty: 14 0RF linezolid 600 mg tablet 600 mg PO BID Qty: 10 0RF Discharge Orders: Discharge Order (Routine); Ordered 12/14/24 Ordered By: Araseli Nicholson/Other Patient Handouts: Diabetes Foot Infections Tx, Osteomyelitis Dc, Your Diabetes Foot Care Program Admission Data Admit Date/Time: 12/02/24 12:59 Attending Provider: Jefe Christianson Admit Provider: Germán Plata Primary Care Provider: Tsering Casper Other Providers: [facility] Fax; IRB Approved Study,Angel; Ankur Sandoval; Kellee Fields; Lenny Paige; Earl Hampton Other Interventions: Discharge Summary Assessment (RN) Last Done: 12/14/24 12:48 Hospital Stay Data Consultations 12/02/24 11:26 ED Decision to Admit Stat 12/02/24 18:13 Consult Pain Management Routine 12/06/24 04:09 Consult Podiatry Routine 12/07/24 08:18 Consult Vascular Surgery Routine Procedures Performed Operation Date: 12/13/24 13:00 Actual Procedures p Angio Extremity Unilateral - Earl Hampton MD Diagnostic Imagining Performed Foot X-Ray 12/02/24 11:00 XR foot LT min 3V routine CLINICAL HISTORY: l foot ulcer and wound COMPARISON: 06/28/2024 FINDINGS: There is osteopenia. There are atherosclerotic calcifications. No fracture or dislocation. No evidence of osteomyelitis. No radiopaque foreign body. IMPRESSION: No osteomyelitis seen. ACT 112: Negative or not required by law. Electronically signed by: Tarun Gutiérrez M.D. 12/02/2024 12:20 PM KUB X-Ray 12/02/24 15:14 Clinical history: Pain 3 views of the abdomen were obtained Findings: There is moderate severity constipation. There is no definite sign of bowel obstruction. No renal or ureteral calculi are seen. No foreign body is evident. There is lumbar scoliosis. There is an extensive thoracic and lumbar fusion. There is a stimulator device in the right lower quadrant abdominal wall Impression: Constipation Electronically signed by Deshawn Verduzco 12-02-2024 4:41 PM Foot MRI 12/05/24 22:30 Exam(s): MRI LEFT FOOT Without Contrast EXAM: MR Left Lower Extremity Without Intravenous Contrast, Foot CLINICAL HISTORY: Reason for exam: suspect osteo. TECHNIQUE: Multiplanar magnetic resonance images of the left foot without intravenous contrast. COMPARISON: X-rays dated 12/02/2024. FINDINGS: There is soft tissue swelling and edema. Bony structures are intact. No evidence of acute fracture or dislocation. There are hypertrophic degenerative changes. There is signal abnormality noted in the first metatarsal and the first proximal phalanx. IMPRESSION: There is soft tissue edema and swelling. Signal abnormality in the first metatarsal and first proximal phalanx may represent osteomyelitis. Electronically signed by: Luca Iverson MD 12/06/24 02:45 AM Pending Results Patient Have Any Pending Studies at Discharge: No Discharge Instructions Given to Patient (Per Discharging Provider) Ms. Elizabeth You were hospitalized after having worsening redness and pain of the left foot. You were given antibiotics and seen by podiatry. This resulted in surgery and amputation of your 1st toe. The pathology did show that this bone was infected with part of the toe that had from infection. In discussion with Dr. Plunkett, he believes this will be best treated with oral antibiotics and good wound care follow up. You had a vascular study that did show that you should have good blood flow to the foot for wound healing. You can weightbear as tolerated on that left leg - dr. plunkett recommends only short distances, and avoid sitting with feet down for more than an hour. Please follow up with your PCP within one week. Follow up with Dr. Plunkett as directed. You will also need follow up in the wound care clinic - they should contact you with an appointment. If you do not hear from them by Friday please call the number above. Take two doses of Keflex tonight. Take the whole coarse even if you feel well. CONTACT YOUR PRIMARY CARE PROVIDER if you experience any of the following: Shortness of breath or difficulty breathing Fevers or chills Feeling tired with normal activity or experiencing dizziness or fainting Difficulty following your treatment plan, or difficulty taking medications CALL 911 OR GO TO THE EMERGENCY DEPARTMENT if you experience any of the following: Severe abdominal pain or nausea/vomiting Severe chest pain, or chest pain that radiates (moves) to your jaw or arm Sudden, severe shortness of breath or difficulty breathing Thank you for allowing us to participate in your care. Total Time Total Time Spent Total Time Spent (In Minutes): Time spent day of discharge 36 minutes including direct patient care, medication reconciliation, documentation, review of labs and images, and coordination of care. Discussed case with Dr. Plunkett Coding Level of Care Code 09775 INP/OBS DISCH >30 MIN Diagnoses Diabetic peripheral neuropathy associated with type 2 diabetes mellitus E11.42 Subacute osteomyelitis of left foot M86.272 Osteomyelitis type: subacute Cerebrovascular disease I67.9 Implantable intrathecal infusion pump present Z96.89 HERIBERTO (obstructive sleep apnea) G47.33 Candidiasis B37.9"
--- NOTE | 2024-12-14 12:52 | Podiatry Progress Note ---
Date of Service December 14, 2024 Assessment & Plan (1) Osteomyelitis of left foot: (2) Chronic ulcer of left foot with fat layer exposed: (3) Diabetic foot ulcer: Plan Postop day 5 status post partial first ray amputation of the left foot. - Postop day 1 status post left lower extremity angiogram 12/13/2024. - Dressing changed. Continue once daily dressing change with dry gauze dressing Willie and lightly applied Elias bandage total dressings in place. - Intraoperative bone culture 12/09/2024: No growth to date - Proximal margin pathology 12/09/2024: Proximal margin first metatarsal with osteonecrotic bone without definitive inflammatory changes indicative of osteomyelitis. - Patient okay to continue weightbearing as tolerated to the left foot for short distance and transfer in cam walker with walker to assist. - Patient encouraged to elevate left lower extremity while at rest and avoid sitting with feet in dependent position for greater than half hour at a time. Patient okay for discharge from podiatry standpoint on p.o. antibiotics. Clinically patient's foot is shown significant improvement from an infection standpoint with resolution of erythema and edema. There is dehiscence along the proximal half of the incision with continued serous to serosanguineous drainage which will require daily dressing changes and close monitoring. Patient's has been changing her dressings for several months at home and is quite comfortable continuing with once daily dressing change to the right foot including Aquacel Ag, 4 x 4 fluff gauze Willie and an Elias bandage. Admission and Anticipated Discharge Date Admission Date: December 02, 2024 Subjective POD 5 denies pain in the left foot. Denies nausea, vomiting, fever, chills. Resting comfortably in bedside chair. Review of Systems Review of Systems: Denies diarrhea over the weekend. Denies nausea, vomiting, fever, chills. Denies pain in left foot. Physical Exam Physical Exam: Const: Appears well developed and well nourished. No signs of acute distress present. CV: Extremities: No cyanosis or edema. Capillary refill time is less than 2 seconds all digits of the bilateral foot. Lymph: No palpable or visible regional lymphadenopathy. Neuro: Loss of protective sensation bilateral foot Psych: Mood/Affect: Mood is normal. Affect is normal. Cognition: Orientation is intact to person, place and time. Focused lower extremity musculoskeletal exam: Leg: No pain with compression of the calf muscle. Ankles: Normal to inspection and palpation. No swelling bilaterally. No tend erness bilaterally. Motor strength is intact. Range of motion pain-free and unlimited. Feet: Postop day #5 status post partial first ray amputation left foot. Surgical wound dressing is changed. Serosanguineous drainage from proximal and central incision site with early signs of dehiscence proximal 1/2 of the incision. Capillary refill time along the incision less than 3 seconds. Decreased erythema and edema to the left forefoot. No lymphangitis or streaking. Resolving ecchymosis to the lateral aspect of the left foot and plantar lateral foot Results & Data Results & Data Vital Signs (Past 12 Hours) Vital Signs Temp Pulse Pulse Resp BP Pulse Ox O2 Del Method 12/14/24 11:13 36.9 C 92 H 18 125/80 94 Room Air 12/14/24 08:30 Room Air 12/14/24 07:42 36.6 C 57 L 18 121/73 94 Room Air 12/14/24 07:02 58 L 12/14/24 03:47 36.6 C 63 18 128/69 94 Room Air Coding Level of Care Code 29880 Post Operative Follow-Up Diagnoses Subacute osteomyelitis of left foot M86.272 Osteomyelitis type: subacute Chronic ulcer of left foot with fat layer exposed L97.522 Diabetic ulcer of left midfoot associated with type 2 diabetes mellitus, unspecified ulcer stage E11.621; L97.429 Diabetes mellitus type: type 2 Diabetic foot ulcer location: midfoot Laterality: left Non-pressure ulcer stage: unspecified non-pressure ulcer stage (1) Osteomyelitis of left foot Osteomyelitis type: subacute Qualified Code(s): M86.272 - Subacute osteomyelitis, left ankle and foot (3) Diabetic foot ulcer Diabetes mellitus type: type 2 Diabetic foot ulcer location: midfoot Laterality: left Non-pressure ulcer stage: unspecified non-pressure ulcer stage Qualified Code(s): E11.621 - Type 2 diabetes mellitus with foot ulcer; L97.429 - Non-pressure chronic ulcer of left heel and midfoot with unspecified severity
--- NOTE | 2024-12-17 14:58 | Vascular Medicine ProgressNote ---
Date of Service December 13, 2024 Assessment & Plan (1) Peripheral vascular disease in diabetes mellitus: Plan: s/p angiogram earlier today. No significant arterial occlusive disease meriting intervention. Can transfer back to regular floor in AM. Standard post-cath eterization protocol. Admission and Anticipated Discharge Date Admission Date: December 02, 2024 Subjective POD 5 denies pain in the left foot. Denies nausea, vomiting, fever, chills. Resting comfortably in bedside chair. Physical Exam Physical Exam: Right groin puncture site clean/dry. No hematoma. Multiphasic doppler flow in right dp/pt. ENMT: Mallampati Class: III Respiratory: normal respiratory effort, lungs clear to auscultation Cardiovascular: RRR, no murmur, no edema Rate/Rhythm: regular rate Vessels: femoral pulses present PG Care Time/CCT Total # of Minutes Spent Total Time Spent with Patient: Total time spent is greater than 50% in coordination of care (as documented) at patient's floor/unit and/or counseling patient: Coding Level of Care Code None Diagnoses Peripheral vascular disease in diabetes mellitus E11.51
== END 2024-12-14 14:03 | disposition home or self-care (01) | DRG 617 ==
LOC: ED 10:39 → SUATTDRO 12:59 → 3W 12:59 → 3E 12-06 08:55 → 4W 12-13 13:58
PROC: CLB.AEU (2024-12-13 13:00)
DX: M54.10 Radiculopathy, site unspecified; B37.2 Candidiasis of skin and nail; F41.1 Generalized anxiety disorder; Z96.89 Presence of other specified functional implants; G89.29 Other chronic pain; Z86.73 Personal history of transient ischemic attack (TIA), and cerebral infarction without residual deficits; Z79.899 Other long term (current) drug therapy; G47.33 Obstructive sleep apnea (adult) (pediatric); M54.50 Low back pain, unspecified; E11.621 Type 2 diabetes mellitus with foot ulcer; R19.7 Diarrhea, unspecified; E11.51 Type 2 diabetes mellitus with diabetic peripheral angiopathy without gangrene; Z79.84 Long term (current) use of oral hypoglycemic drugs; Z79.02 Long term (current) use of antithrombotics/antiplatelets; Z88.8 Allergy status to other drugs, medicaments and biological substances; I10 Essential (primary) hypertension; M86.9 Osteomyelitis, unspecified; L97.522 Non-pressure chronic ulcer of other part of left foot with fat layer exposed; E11.42 Type 2 diabetes mellitus with diabetic polyneuropathy; F32.A Depression, unspecified; Z88.1 Allergy status to other antibiotic agents; L03.116 Cellulitis of left lower limb; K21.9 Gastro-esophageal reflux disease without esophagitis

== ENCOUNTER 2025-01-25 14:08 | Inpatient (IN) ==
--- NOTE | 2025-01-25 14:33 | Emergency Department Note ---
History of Present Illness General Chief complaint: Toe Injury/Pain Stated complaint: TOE CHECK Time Seen by Provider: 01/25/25 14:21 History of Present Illness Maximum Pain Intensity: 5 This is a 74-year-old female who presents to the emergency department via private vehicle with complaints of "recent first toe amputation, second toe redness". Patient notes that she underwent left first toe amputation about 6 weeks ago. She has been doing well since that time. However about a week ago noted erythema to the left second toe that has progressively worsened to involve much of the left second toe. No fevers or chills. No nausea or vomiting. Patient is concerned this may represent infection noting similar presentation to her left first toe. Home Medications Medication Instructions Recorded Confirmed Type glipizide 2.5 mg tablet, extended 2.5 mg PO BID 06/05/20 01/25/25 History release 24 hr metformin 1,000 mg tablet 1,000 mg PO BID 06/05/20 01/25/25 History pantoprazole 40 mg tablet,delayed 40 mg PO QAM 06/05/20 01/25/25 History release gabapentin 300 mg capsule 900 mg PO TID 08/07/20 01/25/25 History multivitamin 1 tab PO QAM 08/28/22 01/25/25 History acetaminophen 325 mg tablet 650 mg (2 x 325 mg) PO Q4H PRN 07/04/23 01/25/25 Rx pain #30 tabs magnesium 250 mg tablet 250 mg PO HS #30 tabs 07/04/23 01/25/25 Rx guaifenesin 600 mg tablet, 1,200 mg PO Q12 PRN Congestion 10/30/23 01/25/25 History extended release 12 hr (Mucinex) famotidine 40 mg tablet 40 mg PO QPM 05/06/24 01/25/25 History hydrochlorothiazide 25 mg tablet 25 mg PO QAM 05/06/24 01/25/25 History celecoxib 100 mg capsule (Celebrex) 100 mg PO QAM 07/21/24 01/25/25 History clopidogrel 75 mg tablet (Plavix) 75 mg PO QAM 07/21/24 01/25/25 History ipratropium 0.5 mg-albuterol 3 mg 3 ml NEB Q4R PRN shortness of 11/15/24 01/25/25 Rx (2.5 mg base)/3 mL nebulization breath #90 mL soln pramipexole 0.25 mg tablet 0.25 mg PO HS RLS 12/03/24 01/25/25 History duloxetine 60 mg capsule,delayed 60 mg PO QAM 01/25/25 01/25/25 History release losartan 50 mg tablet 50 mg PO QAM 01/25/25 01/25/25 History pramipexole 0.25 mg tablet 0.5 mg PO QDD 01/25/25 01/25/25 History Allergies Allergy/AdvReac Type Severity Reaction Status Date / Time aspartame Allergy Severe Cause Unverified 01/25/25 16:16 vaginal area to become sore cefuroxime AdvReac Intermediate upset Verified 01/25/25 16:16 stomach prochlorperazine AdvReac Intermediate Confusion Verified 01/25/25 16:16 [From Compazine] Past Med/Surg History Problem List (Updated 01/25/25 @ 16:42 by Denny Maza PA-C) Osteomyelitis (Acute) History of amputation of foot through metatarsal bone Wound dehiscence, surgical Candidiasis Peripheral vascular disease in diabetes mellitus Anemia (Acute) Leukocytosis (Acute) Osteomyelitis of left foot Chronic ulcer of left foot with fat layer exposed Diabetic foot ulcer (Acute) HERIBERTO (obstructive sleep apnea) Insomnia Carotid stenosis Basilar artery stenosis Cerebrovascular disease (Acute) Elevated troponin I level (Acute) Carpal tunnel syndrome on right Hypomagnesemia (Acute) Implantable intrathecal infusion pump present containing hydromorphone Claudication of lower extremity Peripheral edema Intermittent (no issues at PAT appt 08/28/22) Laryngopharyngeal reflux (LPR) Chronic laryngitis Rotator cuff arthropathy of right shoulder Therapeutic opioid-induced constipation (OIC) Adhesive capsulitis of right shoulder Arthritis of shoulder region, right Lumbosacral radiculopathy Chronic SI joint pain Left lumbar radiculopathy (Acute) Frequent falls Ambulatory dysfunction Morbid obesity with BMI of 40.0-44.9, adult Lumbar postlaminectomy syndrome (Chronic) Restless leg syndrome Fracture of transverse process of thoracic vertebra (Acute) Degenerative disc disease (Chronic) Sleep apnea (Chronic) NO DEVICE USED Hypertension (Chronic) 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) Major depressive disorder (Chronic) Generalized anxiety disorder (Chronic) Intractable neuropathic pain of lower extremity (Chronic) Intractable low back pain (Chronic) Depressive disorder (Chronic) 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) Lumbar spondylosis (Chronic) Lumbar spinal stenosis (Chronic) Hyperlipidemia (Chronic) Fatty liver (Chronic) Diabetic peripheral neuropathy associated with type 2 diabetes mellitus (Chronic) Medical History Chronic SI joint pain Cerebrovascular disease Basilar artery stenosis Hx of respiratory failure (10/2023) Ambulatory dysfunction uses walker Wheezing History of DVT (deep vein thrombosis) Early (was hit by a board/bat to leg and developed clot) Diabetic peripheral neuropathy Hyperlipidemia Fatty liver Diabetes mellitus, type 2 Lumbar spinal stenosis Anxiety and depression Hypertension Degenerative disc disease Walker as ambulation aid Implantable intrathecal infusion pump present Containing hydromorphone Diarrhea History of pneumonia PNA annually (no current/recent dx) Reason for albuterol neb + inhaler PRN per patient Sleep apnea No device Chronic ulcer of left foot Follows with [place] [facility] Carotid stenosis Neck CTA 05/2024: The carotid arteries are without hemodynamically significant stenosis although there is again noted to be approximately 60% stenosis of the internal carotid artery on the left. Reason for Plavix per patient History of COVID-19 (04/2020) [facility] hospitalization, "resolved" Hx of gout GERD (gastroesophageal reflux disease) Restless leg syndrome History of kidney stones Surgical History Status post insertion of intrathecal pump (09/03/22) History of incision and drainage (07/01/24) Left foot wound debridement, [facility] History of back surgery 4 back surgeries total, most recent 2020 History of esophagogastroduodenoscopy (EGD) History of colonoscopy (07/28/24) [facility] History of tooth extraction H/O varicose vein ligation and stripping Saphenous vein History of open reduction and internal fixation (ORIF) procedure Right ankle History of section x3 History of herniorrhaphy Repair of incarcerated incisional hernia with Surgimesh 10cm in diameter resection of incarcerated omentum (2014) History of appendectomy Laparoscopic (2012) Family History Mother , age 77 of heart issues Osteoporosis Heart disease Cancer Hypertension Brother Diabetes Family history of diabetes mellitus Daughter Cervical cancer Father , Patient age 91 with Parkinson's disease Parkinsons Other No family history of adverse response to anesthesia Denies family history of Ovarian cancer Breast cancer Colorectal cancer Stroke Asthma Social History Smoking Status: Never smoker Second Hand Exposure: No; Do You Dip or Chew Tobacco: No; Hx Alcohol Use: No Hx Substance Use: No Preferred Language: Hungarian Communication Ability: Effective Visual Impairment: No Limitations Hearing Ability: Normal 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 Beliefs That Will Affect Care: None marital status: Current Living Situation: Spouse current occupational status: retired 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 Feels Safe at Home: Yes Diet: regular Dental Care, Regularly: Yes Physical Activity Frequency: Does not Exercise Assistive Devices: Cane, Stair Lift and Walker Review of Systems A total of 10 systems reviewed and were otherwise negative Physical Exam Vital Signs Vital Signs - 24 hr 01/25/25 14:16 01/25/25 14:46 Temperature 36.8 C Temperature Source Oral Pulse Rate 100 H Pulse Rate [Finger] 90 Respiratory Rate 18 20 Respiratory Effort / Characteristics Non-Labored Spontaneous Non-Labored Spontaneous Respiratory Depth Normal Normal Respiratory Pattern Regular Blood Pressure 109/66 Blood Pressure [Right Arm] 103/66 Blood Pressure Mean 80 Blood Pressure Mean [Right Arm] 78 Pulse Oximetry 96 95 Oxygen Delivery Method Room Air Room Air Sepsis Recent Fever Within 48 Hours No Sepsis New/Unexplained Change in Mental Status No Sepsis Action Taken by Nursing No Action Required VITAL SIGNS - Vital signs and nursing notes were reviewed. Stable and afebrile. GENERAL -74-year-old female appearing her stated age who is in no acute distress. Communicates well with provider and answers questions appropriately. SKIN -the left second toe is erythematous, mildly edematous with 2 small coalescing open wounds to the dorsal aspect. LUNGS -clear to auscultation CARDIAC -regular rate and rhythm EXTREMITIES - No clubbing or peripheral cyanosis. Skin as above. Left second toe with intact cap refill. +5/5 strength noted in UE/LE bilaterally. NEUROLOGIC -sensory intact throughout the left lower extremity without deficit. PSYCH -alert, oriented and pleasant on exam Course Administered Medications Discontinued Medications Cefepime HCl (Maxipime 2000mg) 2,000 mg in 20 mls @ 5 mls/min IV NOW STA; Protocol Stop: 01/25/25 15:33 Last Admin: 01/25/25 15:38 Dose: 5 mls/min Documented By: LAURITA Medical Decision Making Laboratory Data 01/25/25 14:46 01/25/25 14:46 Lab Results 01/25/25 Range/Units 14:46 WBC 9.43 (4.8-10.8) K/ul RBC 4.02 L (4.20-5.40) M/uL Hgb 11.4 L (12.0-16.0) g/dl Hct 34.7 L (37.0-47.0) % MCV 86.3 (80.0-100.0) fL MCH 28.4 (25.0-34.0) pg MCHC 32.9 (32.0-36.0) g/dL RDW Std Deviation 49.4 H (36.4-46.3) fL RDW Coeff of Manas 15.6 H (11.5-14.5) % Plt Count 318 (130-400) K/uL MPV 10.4 (9.4-12.4) fL Immature Gran % (Auto) 0.3 % Neut % (Auto) 51.8 % Lymph % (Auto) 38.4 % Dyer % (Auto) 7.3 % Eos % (Auto) 1.7 % Baso % (Auto) 0.5 % Neut # (Auto) 4.88 (1.40-6.50) K/uL Lymph # (Auto) 3.62 H (1.20-3.40) K/uL Dyer # (Auto) 0.69 H (0.11-0.59) K/uL Eos # (Auto) 0.16 (0.00-0.50) K/uL Baso # (Auto) 0.05 (0.00-0.20) K/uL Immature Gran # (Auto) 0.03 (0.01-0.20) K/uL ESR 68 H (0-30) mm/hr Sodium 140 (136-145) mmol/L Potassium 3.3 L (3.5-5.1) mmol/L Chloride 100 (98-107) mmol/L Carbon Dioxide 31 (21-32) mmol/L Anion Gap 9 (3-11) BUN 20 (6-23) mg/dl Creatinine 0.95 (0.6-1.2) mg/dl Est Cr Clr Drug Dosing 53.0 ml/min eGFR 63.66 BUN/Creatinine Ratio 21.1 H (10-20) Glucose 113 H (70-99(Fasting)) mg/dl Calcium 9.8 (8.6-10.3) mg/dl Total Bilirubin 0.4 (0.2-1.0) mg/dl AST 20 (13-39) U/L ALT 14 (7-52) U/L Alkaline Phosphatase 87 (34-104) U/L C-Reactive Protein 1.04 H (0-0.5) mg/dl Total Protein 7.9 (6.0-8.3) gm/dl Albumin 4.0 (3.4-5.0) gm/dl Globulin 3.9 (2.5-4.0) gm/dl Albumin/Globulin Ratio 1.0 (0.9-2) Procalcitonin 0.04 (0-0.5) ng/ml Imaging Data Radiologist's Impression: Toe X-Ray 01/25/25 14:32 XR toe(s) LT min 2V HISTORY: 74 years-old Female L 2nd toe infection COMPARISON: Radiographs 12/02/2024, MRI 12/05/2024 TECHNIQUE: 3 views of the left toes FINDINGS: Prior amputation of the first digit at the level of the proximal diaphyseal metatarsal. Cortical irregularity involves the second, third and fourth metatarsal heads. Mild periosteal elevation involves the distal metadiaphyseal aspects of the second and third metatarsals and proximal to mid aspects of the second and third proximal phalanges. No acute displaced fracture. Moderate soft tissue swelling with soft tissue gas within the forefoot near the operative bed. IMPRESSION: 1. Status post amputation of the first digit. 2. Cortical irregularity with mild flattening of the second, third and fourth metatarsal heads with mild periostitis of the second and third digits. Findings may be secondary to subtle acute nondisplaced fractures versus multifocal osteomyelitis. ACT 112: Negative or not required by law. The above report was generated using voice recognition software. It may contain grammatical, syntax or spelling errors. Electronically signed by: Colin Parrish M.D. 01/25/2025 3:18 PM MDM Narrative Patient was seen and evaluated as above in room B10. Review was performed of triage nursing notes and vital signs. Patient presents to us today for evaluation of erythema and edema to the left second toe. Examination concerning for infection. Culture of the wound was obtained. Options of care were discussed with the patient. IV access was established. Labs were drawn. IV vancomycin and IV cefepime ordered. There is no leukocytosis. There is anemia with hemoglobin of 11.4. ESR elevated at 68, mild hypokalemia 3.3. No evidence of emergent kidney or liver failure. CRP 1.04. Pro-Julien within normal range. Blood cultures ordered and are pending. X-ray of the toes were ordered. Imaging report as above. There is amputation of the first digit but irregularity noted of the 2nd, 3rd and 4th. No reported trauma. This is concerning for infection. I do believe that further evaluation and management in the inpatient setting is warranted. Case discussed with the hospitalist service. Please refer to further documentation regarding her stay. In the evaluation and treatment of this patient the following differential diagnoses were entertained: Osteomyelitis, fracture, cellulitis, sepsis, among others Impression & Plan Osteomyelitis Discharge Plan Visit Data Chief Complaint: Toe Injury/Pain Stated Complaint: TOE CHECK ED Provider: Hawa Mason ED Midlevel Provider: Denny Maza Discharge Problem: Osteomyelitis Patient Disposition: Admitted As Inpatient Condition: Good Forms Stand Alone Forms: My [facility] [employer] Prescriptions Prescriptions: No Action famotidine 40 mg tablet 40 mg PO QPM hydrochlorothiazide 25 mg tablet 25 mg PO QAM metformin 1,000 mg tablet 1,000 mg PO BID glipizide 2.5 mg tablet extended release 24hr 2.5 mg PO BID pantoprazole 40 mg tablet,delayed release (DR/EC) 40 mg PO QAM gabapentin 300 mg capsule 900 mg PO TID Patient Comments: TAKES 3 TAB TID acetaminophen 325 mg Tablet 650 mg PO Q4H PRN (Reason: pain) Qty: 30 0RF magnesium 250 mg tablet 250 mg PO HS Qty: 30 0RF multivitamin Tablet 1 tab PO QAM ipratropium-albuterol 0.5 mg-3 mg(2.5 mg base)/3 mL Solution For Nebulization 3 ml NEB Q4R PRN (Reason: shortness of breath) Qty: 90 0RF guaifenesin [Mucinex] 600 mg tablet extended release 12hr 1,200 mg PO Q12 PRN (Reason: Congestion) celecoxib [Celebrex] 100 mg capsule 100 mg PO QAM clopidogrel [Plavix] 75 mg Tablet 75 mg PO QAM pramipexole 0.25 mg Tablet 0.25 mg PO HS losartan 50 mg Tablet 50 mg PO QAM pramipexole 0.25 mg Tablet 0.5 mg PO QDD duloxetine 60 mg Capsule,Delayed Release(Dr/Ec) 60 mg PO QAM Referrals Referrals: Tsering Casper MD [Primary Care Provider] -
[2025-01-25 15:01] LABS: Hematocrit (blood only) 34.7 % (37.0-47.0); Hemoglobin 11.4 g/dl (12.0-16.0); Immature Granulocytes # (auto) 0.03 K/uL (0.01-0.20); Immature Granulocytes % (auto) 0.3 %; Mean Corpuscular Hemoglobin 28.4 pg (25.0-34.0); Mean Corpuscular Volume 86.3 fL (80.0-100.0); Platelet Count 318 K/uL (130-400); RDW Standard Deviation 49.4 fL (36.4-46.3); Red Blood Count 4.02 M/uL (4.20-5.40); White Blood Count 9.43 K/ul (4.8-10.8)
--- NOTE | 2025-01-25 15:20 | XRay Report ---
XR toe(s) LT min 2V HISTORY: 74 years-old Female L 2nd toe infection COMPARISON: Radiographs 12/02/2024, MRI 12/05/2024 TECHNIQUE: 3 views of the left toes FINDINGS: Prior amputation of the first digit at the level of the proximal diaphyseal metatarsal. Cortical irre gularity involves the second, third and fourth metatarsal heads. Mild periosteal elevation involves t he distal metadiaphyseal aspects of the second and third metatarsals and proximal to mid aspects of t he second and third proximal phalanges. No acute displaced fracture. Moderate soft tissue swelling wi th soft tissue gas within the forefoot near the operative bed. IMPRESSION: 1. Status post amputation of the first digit. 2. Cortical irregularity with mild flattening of the second, third and fourth metatarsal heads with m ild periostitis of the second and third digits. Findings may be secondary to subtle acute nondisplace d fractures versus multifocal osteomyelitis. ACT 112: Negative or not required by law. The above report was generated using voice recognition software. It may contain grammatical, syntax o r spelling errors. Electronically signed by: Colin Parrish M.D. 01/25/2025 3:18 PM
[2025-01-25 15:21] LABS: Alanine Aminotransferase 14.0 U/L (7-52); Albumin Globulin Ratio 1.0 (0.9-2); Alkaline Phosphatase 87.0 U/L (34-104); Anion Gap 9.0 (3-11); Bilirubin,Total 0.4 mg/dl (0.2-1.0); Blood Urea Nitrogen 20.0 mg/dl (6-23); Calcium 9.8 mg/dl (8.6-10.3); Carbon Dioxide 31.0 mmol/L (21-32); Chloride 100.0 mmol/L (98-107); Creatinine Clr Calc Pharmacy 53.0 ml/min; Globulin 3.9 gm/dl (2.5-4.0); Glucose 113.0 mg/dl (70-99(Fasting)); Potassium 3.3 mmol/L (3.5-5.1); Sodium 140.0 mmol/L (136-145); Total Protein 7.9 gm/dl (6.0-8.3)
[2025-01-25] MEDS ORDERED: VANCOMYCIN CONSULT ACTIVE PRN (15:30)
[2025-01-25] MEDS: CEFEPIME 2000MG 2,000 MG/20 ML SYR IV STA (15:38)
--- NOTE | 2025-01-25 15:39 | History & Physical Report ---
Date of Service January 25, 2025 Assessment & Plan (1) Osteomyelitis: (2) Diabetes mellitus, type 2: (3) Implantable intrathecal infusion pump present: (4) Carotid stenosis: (5) Hypertension: Plan Patient is a 74yo F with PMHx of T2DM c/b peripheral neuropathy, CVA, GERD, HLD, HERIBERTO, and radiculopathies on morphine pump, who presents with foot wound. Xray with Cortical irregularity with mild flattening of the second, third and fourth metatarsal heads with mild periostitis of the second and third digits. Findings may be secondary to subtle acute nondisplaced fractures versus multifocal osteomyelitis. Patient without recent fall, injury or trauma to the area. Admitted for podiatry consultation and IV antibotics. #Left toe osteomyelitis - no traumatic injury, recent amputation of first digit 12/[address] Plunkett. No leukocytosis on admission but elevated ESR and CRP. Continue Cefepime and Vancomycin IV Consult podiatry - Dr. Plunkett will see patient in the ER Wound culture pending Blood culture pending Will Keep NPO at midnight pain control: tylenol, no pain reported on admission AM CBC, BMP and CRP T2DM w/ neuropathy A1c on 11/09/24 was 7.3%. Home meds - glipizide, metformin Continue gabapentin for neuropathic pain BSG ACHS + SSI. Lantus 10 units daily #Radiculopathies | Pain pump Intrathecal morphine pump palpable in right-middle abdomen - will need KUB prior if needing MRI and pain management post MRI Continue home pain meds - celebrex, gabapentin #Carotid artery stenosis - continue plavix #HTN - hold HCTZ with possible surgery, continue losartan #GERD - continue pepcid, protonix #STEPHEN/depression - continue duloxetine dispo: admit to med/surg DVT proh: SCDs, avoid chemical with possible OR History of Present Illness Chief Complaint: toe infection Primary Care Provider: Tsering Casper MD Rosa Mccarty is a 74F with a PMH of T2DM c/b peripheral neuropathy, CVA, GERD, HLD, HERIBERTO, and radiculopathies on morphine pump, who presents with foot wound. She noticed scratch about a week ago, that has progressed over the last week. Tried to get in with the wound clinic but they told her to report to the ER. Denies pain. States this is similar to when she had to get her 1st toe amputated. Does report fatigue. Thought it was just from doing too much when he knew he wasnt supposed to. Not moving her bowels, but that is her normal. No fevers or chills at home. Took her medications this morning. Allergies Allergy/AdvReac Type Severity Reaction Status Date / Time aspartame Allergy Severe Cause Unverified 01/25/25 16:16 vaginal area to become sore cefuroxime AdvReac Intermediate upset Verified 01/25/25 16:16 stomach prochlorperazine AdvReac Intermediate Confusion Verified 01/25/25 16:16 [From Compazine] Home Medications Medication Instructions Recorded Confirmed Type glipizide 2.5 mg tablet, extended 2.5 mg PO BID 06/05/20 01/25/25 History release 24 hr metformin 1,000 mg tablet 1,000 mg PO BID 06/05/20 01/25/25 History pantoprazole 40 mg tablet,delayed 40 mg PO QAM 06/05/20 01/25/25 History release gabapentin 300 mg capsule 900 mg PO TID 08/07/20 01/25/25 History multivitamin 1 tab PO QAM 08/28/22 01/25/25 History acetaminophen 325 mg tablet 650 mg (2 x 325 mg) PO Q4H PRN 07/04/23 01/25/25 Rx pain #30 tabs magnesium 250 mg tablet 250 mg PO HS #30 tabs 07/04/23 01/25/25 Rx guaifenesin 600 mg tablet, 1,200 mg PO Q12 PRN Congestion 10/30/23 01/25/25 History extended release 12 hr (Mucinex) famotidine 40 mg tablet 40 mg PO QPM 05/06/24 01/25/25 History hydrochlorothiazide 25 mg tablet 25 mg PO QAM 05/06/24 01/25/25 History celecoxib 100 mg capsule (Celebrex) 100 mg PO QAM 07/21/24 01/25/25 History clopidogrel 75 mg tablet (Plavix) 75 mg PO QAM 07/21/24 01/25/25 History ipratropium 0.5 mg-albuterol 3 mg 3 ml NEB Q4R PRN shortness of 11/15/24 01/25/25 Rx (2.5 mg base)/3 mL nebulization breath #90 mL soln pramipexole 0.25 mg tablet 0.25 mg PO HS RLS 12/03/24 01/25/25 History duloxetine 60 mg capsule,delayed 60 mg PO QAM 01/25/25 01/25/25 History release losartan 50 mg tablet 50 mg PO QAM 01/25/25 01/25/25 History pramipexole 0.25 mg tablet 0.5 mg PO QDD 01/25/25 01/25/25 History Past Med/Surg History Problem List (Updated 01/25/25 @ 16:42 by Denny Maza PA-C) Osteomyelitis (Acute) History of amputation of foot through metatarsal bone Wound dehiscence, surgical Candidiasis Peripheral vascular disease in diabetes mellitus Anemia (Acute) Leukocytosis (Acute) Osteomyelitis of left foot Chronic ulcer of left foot with fat layer exposed Diabetic foot ulcer (Acute) HERIBERTO (obstructive sleep apnea) Insomnia Carotid stenosis Basilar artery stenosis Cerebrovascular disease (Acute) Elevated troponin I level (Acute) Carpal tunnel syndrome on right Hypomagnesemia (Acute) Implantable intrathecal infusion pump present containing hydromorphone Claudication of lower extremity Peripheral edema Intermittent (no issues at PAT appt 08/28/22) Laryngopharyngeal reflux (LPR) Chronic laryngitis Rotator cuff arthropathy of right shoulder Therapeutic opioid-induced constipation (OIC) Adhesive capsulitis of right shoulder Arthritis of shoulder region, right Lumbosacral radiculopathy Chronic SI joint pain Left lumbar radiculopathy (Acute) Frequent falls Ambulatory dysfunction Morbid obesity with BMI of 40.0-44.9, adult Lumbar postlaminectomy syndrome (Chronic) Restless leg syndrome Fracture of transverse process of thoracic vertebra (Acute) Degenerative disc disease (Chronic) Sleep apnea (Chronic) NO DEVICE USED Hypertension (Chronic) 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) Major depressive disorder (Chronic) Generalized anxiety disorder (Chronic) Intractable neuropathic pain of lower extremity (Chronic) Intractable low back pain (Chronic) Depressive disorder (Chronic) 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) Lumbar spondylosis (Chronic) Lumbar spinal stenosis (Chronic) Hyperlipidemia (Chronic) Fatty liver (Chronic) Diabetic peripheral neuropathy associated with type 2 diabetes mellitus (Chronic) Medical History Chronic SI joint pain Cerebrovascular disease Basilar artery stenosis Hx of respiratory failure (10/2023) Ambulatory dysfunction uses walker Wheezing History of DVT (deep vein thrombosis) Early (was hit by a board/bat to leg and developed clot) Diabetic peripheral neuropathy Hyperlipidemia Fatty liver Diabetes mellitus, type 2 Lumbar spinal stenosis Anxiety and depression Hypertension Degenerative disc disease Walker as ambulation aid Implantable intrathecal infusion pump present Containing hydromorphone Diarrhea History of pneumonia PNA annually (no current/recent dx) Reason for albuterol neb + inhaler PRN per patient Sleep apnea No device Chronic ulcer of left foot [facility]s [facility] Carotid stenosis Neck CTA 05/2024: The carotid arteries are without hemodynamically significant stenosis although there is again noted to be approximately 60% stenosis of the internal carotid artery on the left. Reason for Plavix per patient History of COVID-19 (04/2020) [facility] hospitalization, "resolved" Hx of gout GERD (gastroesophageal reflux disease) Restless leg syndrome History of kidney stones Surgical History Status post insertion of intrathecal pump (09/03/22) History of incision and drainage (07/01/24) Left foot wound debridement, [facility] History of back surgery 4 back surgeries total, most recent 2020 History of esophagogastroduodenoscopy (EGD) History of colonoscopy (07/28/24) [facility] History of tooth extraction H/O varicose vein ligation and stripping Saphenous vein History of open reduction and internal fixation (ORIF) procedure Right ankle History of section x3 History of herniorrhaphy Repair of incarcerated incisional hernia with Surgimesh 10cm in diameter resection of incarcerated omentum (2014) History of appendectomy Laparoscopic (2012) Family History Mother , age 77 of heart issues Osteoporosis Heart disease Cancer Hypertension Brother Diabetes Family history of diabetes mellitus Daughter Cervical cancer Father , Patient age 91 with Parkinson's disease Parkinsons Other No family history of adverse response to anesthesia Denies family history of Ovarian cancer Breast cancer Colorectal cancer Stroke Asthma Social History Smoking Status: Never smoker Second Hand Exposure: No; Do You Dip or Chew Tobacco: No; Hx Alcohol Use: No Hx Substance Use: No Preferred Language: Sinhala Communication Ability: Effective Visual Impairment: No Limitations Hearing Ability: Normal Grease Packer Required: No Beliefs That Will Affect Care: None marital status: Current Living Situation: Spouse current occupational status: retired 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 Feels Safe at Home: Yes Diet: regular Dental Care, Regularly: Yes Physical Activity Frequency: Does not Exercise Assistive Devices: Denture - Upper, Denture - Lower, Glasses and Walker Review of Systems Review of Systems: All systems reviewed & are unremarkable except as noted in Subjective Physical Exam Physical Exam: General: NAD, VS as above Resp: normal respiratory effort, lungs clear to auscultation CV: RRR, no murmur, Abd: normal bowel sounds, non tender, no hepatosplenomegaly Extremities: Moves all extremities, left foot s/p first toe amputation, second toe with open lesions and purulent drainage Neuro: A&O x3, Skin: intact, no lesions noted Results & Data Results & Data Vital Signs (Past 12 Hours) Vital Signs Temp Pulse Pulse Resp BP BP Pulse Ox 01/25/25 14:46 90 20 103/66 95 01/25/25 14:16 98.2 F 100 H 18 109/66 96 O2 Del Method 01/25/25 14:46 Room Air 01/25/25 14:16 Room Air Laboratory Results cbc and chemistry reviewed Diagnostic Findings foot xray reviewed Supervising Physician Co-Signing Physician Notes Patient was seen and examined independently I discussed the case with the Radha RODGERS I reviewed pertinent past medical social family history and also the plan of care and agree with the plan of care. Patient presents with progression of diabetic foot ulcer. Previous great toe amputation. Typically sees Dr. Plunkett. Patient had progression of a second toe proximal intra phalangeal ulcer which is now with exposed tendon. There is no initial osteomyelitis seen on imaging but further imaging is going to be ordered. Patiently placed on broad-spectrum antibiotics for diabetic foot infection with likely surgical removal of the second toe pending evaluation for osteomyelitis and further resection being required Any exceptions will be noted below PG Care Time/CCT Total # of Minutes Spent Total Time Spent with Patient: Total time spent is greater than 50% in coordination of care (as documented) at patient's floor/unit and/or counseling patient: Coding Level of Care Code 58377 INT INP/OBS CARE MIN Diagnoses Osteomyelitis M86.9 Diabetes mellitus, type 2 E11.9 Implantable intrathecal infusion pump present Z96.89 Carotid stenosis I65.29 Hypertension I10
--- NOTE | 2025-01-25 15:42 | Emergency Department Note ---
ED Visit Note I was consulted by the Advanced Practice Provider, Denny Maza PA-C. I performed a substantive portion of the visit. This includes aspects of: History: Patient is a 74-year-old female presenting with second toe infection. Patient had a left first toe amputation about 6 weeks ago. Reports she was doing well up until about a week ago when she noticed that the left second toe started to become more red in color. Denies any fevers or chills. MDM: - Laboratory workup in the emergency department showed a normal WBC; elevated ESR (68); slight hypokalemia (K 3.3); normal AST/ALT; elevated CRP (1.04); normal procalcitonin - Xray imaging of the left toes show irregularity of the 2nd, 3rd and 4th metatarsal heads concerning for osteomyelitis. - Patient given IV cefepime and vancomycin in ER. - Patient to be admitted to the inpatient hospitalist service for further evaluation and management .
[2025-01-25] MEDS: VANCOMYCIN HCL 1,750 MG in SODIUM CHLORIDE 0.9% 500 ML IV ONE (18:12)
[2025-01-25] MEDS ORDERED: DEXTROSE 50% 50 ML SYRINGE IV PRN (18:30)
[2025-01-25] MEDS ORDERED: ALBUT/IPRATROP 3MG/0.5MG NEB 3 ML VIAL NEB PRN (18:30)
[2025-01-25] MEDS ORDERED: GLUCOSE 10 TAB/TUBE PO PRN (18:30)
[2025-01-25] MEDS ORDERED: POLYETHYLENE (MIRALAX) 17 GM PACK PO PRN (18:30)
[2025-01-25] MEDS ORDERED: GLUCAGON FOR INJ 1 MG VIAL SQ PRN (18:30)
[2025-01-25] MEDS ORDERED: ONDANSETRON INJ 2 MG/ML 2 ML VIAL IV PRN (18:30)
[2025-01-25] MEDS ORDERED: GLUCOSE 40% GEL 15 GM TUBE PO PRN (18:30)
[2025-01-25] MEDS ORDERED: CARBOHYDRATES FOR HYPOGLYCEMIA PO PRN (18:30)
[2025-01-25] MEDS: Nursing to Pharmacy Communication SCH (19:09)
[2025-01-25] MEDS: INSULIN ASPART PER UNIT CHARGE SC SCH (19:26)
[2025-01-25] MEDS: MAGNESIUM OXIDE 400 MG TAB PO SCH (20:53)
[2025-01-25] MEDS: PRAMIPEXOLE DIHYDROCHLO 0.5 MG TAB PO SCH (20:53)
[2025-01-25] MEDS: GABAPENTIN 300 MG CAP PO SCH (20:53)
[2025-01-25] MEDS: FAMOTIDINE 40 MG TABLET PO SCH (20:53)
--- NOTE | 2025-01-25 22:11 | Podiatry Consultation ---
Date of Consultation January 25, 2025 Assessment & Plan (1) Diabetic ulcer of toe of left foot associated with diabetes mellitus due to underlying condition, with bone involvement without evidence of necrosis: (2) Osteomyelitis: Osteomyelitis type: other acute Osteomyelitis location: foot Laterality: left Qualified Code(s): M86.172 - Other acute osteomyelitis, left ankle and foot (3) History of amputation of foot through metatarsal bone: (4) Peripheral vascular disease in diabetes mellitus: Plan Diabetic ulceration left second toe with underlying osteomyelitis: Patient's left foot is evaluated with ulceration to the dorsal aspect of the left second toe and exposed bone to the wound bed. Plan for left second toe amputation 01/27/2025. N.p.o. ordered at midnight tomorrow night to continue until postop. - WBC 9.43, ESR 68, CRP 1.04 - X-ray left foot results reviewed showing cortical irregularity and flattening of the 2nd, 3rd and 4th metatarsal heads with mild periostitis of the 2nd and 3rd digits. Will further evaluate for possible multifocal osteomyelitis with MRI imaging. Given the clinical picture and patient's history differential diagnosis favors periosteal reaction and cortical destruction secondary to Charcot neuroarthropathy. However, osteomyelitis of the proximal phalanx of the second toe is believed likely with exposed bone at the base of the wound on the dorsal aspect of the toe. - Will meet with patient on 01/26/2025 following MRI to discuss treatment options with tentative plan for isolated left second digit amputation 01/27/2025. Thank you for consulting podiatry to aid in the care of this patient. I will continue to follow her progress while she remains in house and make recommendations for follow-up at time of discharge. History of Present Illness Reason for Consultation: Diabetic ulcer left second toe Attending Physician: Michelet Macedo MD History of Present Illness The patient is a 74-year-old female with a past medical history significant for type 2 diabetes with diabetic peripheral neuropathy, CVA, GERD, hyperlipidemia, HERIBERTO, and radiculopathies on a morphine pump. Status post left foot partial first ray amputation 12/09/2024. Status post angiogram 12/17/2024 with no significant arterial occlusive disease identified to merit intervention. Rosa has been following closely with the wound care center as we monitor the healing of her partial first ray amputation which at this time is fully healed. She has been wearing a cam boot to the left lower extremity since the time of operation, uses a roller walker while ambulating and utilizes electric scooter for long distances. Unfortunately approximately a week ago she started to develop a wound on the dorsal aspect of her left second toe. On Friday the toe became more red and swollen with drainage and patient's had been dressing with Aquacel Ag and a dry sterile dressing once daily. Patient denies nausea vomiting fever chills. She presented to the emergency department today for further evaluation and management of the left second toe. Plain film radiographs showing cortical irregularity with flattening of the 2nd, 3rd and 4th metatarsal heads with mild periostitis of the 2nd and 3rd digits. She has no leukocytosis but ESR and CRP are elevated. On evaluation of the ulceration of the dorsal aspect of the left second toe there is exposed bone of the distal aspect of the proximal phalanx and the wound bed. Erythema and edema to the left second toe without lymphangitis or streaking. Allergies Allergy/AdvReac Type Severity Reaction Status Date / Time aspartame Allergy Severe Cause Unverified 01/25/25 16:16 vaginal area to become sore cefuroxime AdvReac Intermediate upset Verified 01/25/25 16:16 stomach prochlorperazine AdvReac Intermediate Confusion Verified 01/25/25 16:16 [From Compazine] Home Medications Medication Instructions Recorded Confirmed Type glipizide 2.5 mg tablet, extended 2.5 mg PO BID 06/05/20 01/25/25 History release 24 hr metformin 1,000 mg tablet 1,000 mg PO BID 06/05/20 01/25/25 History pantoprazole 40 mg tablet,delayed 40 mg PO QAM 06/05/20 01/25/25 History release gabapentin 300 mg capsule 900 mg PO TID 08/07/20 01/25/25 History multivitamin 1 tab PO QAM 08/28/22 01/25/25 History acetaminophen 325 mg tablet 650 mg (2 x 325 mg) PO Q4H PRN 07/04/23 01/25/25 Rx pain #30 tabs magnesium 250 mg tablet 250 mg PO HS #30 tabs 07/04/23 01/25/25 Rx guaifenesin 600 mg tablet, 1,200 mg PO Q12 PRN Congestion 10/30/23 01/25/25 History extended release 12 hr (Mucinex) famotidine 40 mg tablet 40 mg PO QPM 05/06/24 01/25/25 History hydrochlorothiazide 25 mg tablet 25 mg PO QAM 05/06/24 01/25/25 History celecoxib 100 mg capsule (Celebrex) 100 mg PO QAM 07/21/24 01/25/25 History clopidogrel 75 mg tablet (Plavix) 75 mg PO QAM 07/21/24 01/25/25 History ipratropium 0.5 mg-albuterol 3 mg 3 ml NEB Q4R PRN shortness of 11/15/24 01/25/25 Rx (2.5 mg base)/3 mL nebulization breath #90 mL soln pramipexole 0.25 mg tablet 0.25 mg PO HS RLS 12/03/24 01/25/25 History duloxetine 60 mg capsule,delayed 60 mg PO QAM 01/25/25 01/25/25 History release losartan 50 mg tablet 50 mg PO QAM 01/25/25 01/25/25 History pramipexole 0.25 mg tablet 0.5 mg PO QDD 01/25/25 01/25/25 History Patient History Medical History Chronic SI joint pain Cerebrovascular disease Basilar artery stenosis Hx of respiratory failure (10/2023) Ambulatory dysfunction uses walker Wheezing History of DVT (deep vein thrombosis) Early (was hit by a board/bat to leg and developed clot) Diabetic peripheral neuropathy Hyperlipidemia Fatty liver Diabetes mellitus, type 2 Lumbar spinal stenosis Anxiety and depression Hypertension Degenerative disc disease Walker as ambulation aid Implantable intrathecal infusion pump present Containing hydromorphone Diarrhea History of pneumonia PNA annually (no current/recent dx) Reason for albuterol neb + inhaler PRN per patient Sleep apnea No device Chronic ulcer of left foot Follows with [facility] Carotid stenosis Neck CTA 05/2024: The carotid arteries are without hemodynamically significant stenosis although there is again noted to be approximately 60% stenosis of the internal carotid artery on the left. Reason for Plavix per patient History of COVID-19 (04/2020) [facility] hospitalization, "resolved" Hx of gout GERD (gastroesophageal reflux disease) Restless leg syndrome History of kidney stones Surgical History Status post insertion of intrathecal pump (09/03/22) History of incision and drainage (07/01/24) Left foot wound debridement, [facility] History of back surgery 4 back surgeries total, most recent 2020 History of esophagogastroduodenoscopy (EGD) History of colonoscopy (07/28/24) [facility] History of tooth extraction H/O varicose vein ligation and stripping Saphenous vein History of open reduction and internal fixation (ORIF) procedure Right ankle History of section x3 History of herniorrhaphy Repair of incarcerated incisional hernia with Surgimesh 10cm in diameter resection of incarcerated omentum (2014) History of appendectomy Laparoscopic (2012) Family History Mother , age 77 of heart issues Osteoporosis Heart disease Cancer Hypertension Brother Diabetes Family history of diabetes mellitus Daughter Cervical cancer Father , Patient age 91 with Parkinson's disease Parkinsons Other No family history of adverse response to anesthesia Denies family history of Ovarian cancer Breast cancer Colorectal cancer Stroke Asthma Social History Smoking Status: Never smoker Second Hand Exposure: No; Do You Dip or Chew Tobacco: No; Hx Alcohol Use: No Hx Substance Use: No Preferred Language: Citizen [place] Communication Ability: Effective Visual Impairment: No Limitations Hearing Ability: Normal Physician Office Assistant Required: No Beliefs That Will Affect Care: None marital status: Current Living Situation: Spouse current occupational status: retired 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 Denies pain to the left foot. Physical Exam Physical Exam: Const: Appears well developed and well nourished. No signs of acute distress present. CV: Extremities: No cyanosis or edema. Capillary refill time is less than 2 seconds all digits of the bilateral foot. Posterior tibial and dorsalis pedis pulses are non-palpable bilateral. Neuro: Loss of protective sensation bilateral foot Psych: Mood/Affect: Mood is normal. Affect is normal. Cognition: Orientation is intact to person, place and time. Focused lower extremity musculoskeletal exam: Leg: No pain with compression of the calf muscle. Ankles: Normal to inspection and palpation. No swelling bilaterally. No tenderness bilaterally. Motor strength is intact. Range of motion pain-free and unlimited. Feet: Left: Ulceration to the dorsal aspect of the proximal interphalangeal joint of the left second toe extending to bone of the proximal phalanx. Erythema and edema extending to the base of the left second toe. No lymphangitis or streaking. No active drainage from the wound bed. Plantar ulceration subfirst metatarsal head left foot is epithelialized. Status post partial first ray amputation left foot 12/09/2024: Incision is now well-healed with no signs of local soft tissue infection along its length. Plantar lateral left foot in location of previous deep soft tissue injury: Epithelialized with no signs of local soft tissue infection Results & Data Vital Signs (Past 12 Hours) Vital Signs Temp Pulse Pulse Resp BP BP Pulse Ox 01/25/25 19:17 36.6 C 76 15 131/66 96 01/25/25 18:36 74 12 120/68 96 01/25/25 17:45 78 12 123/81 95 01/25/25 17:21 85 01/25/25 14:46 90 20 103/66 95 01/25/25 14:16 36.8 C 100 H 18 109/66 96 O2 Del Method 01/25/25 19:17 Room Air 01/25/25 18:36 Room Air 01/25/25 17:45 01/25/25 17:21 01/25/25 14:46 Room Air 01/25/25 14:16 Room Air Laboratory Results - WBC 9.43, ESR 68, CRP 1.04 Diagnostic Findings X-ray of the left foot 01/25/2025: IMPRESSION: 1. Status post amputation of the first digit. 2. Cortical irregularity with mild flattening of the second, third and fourth metatarsal heads with mild periostitis of the second and third digits. Findings may be secondary to subtle acute nondisplaced fractures versus multifocal osteomyelitis. PG Care Time/CCT Total # of Minutes Spent Total Time Spent with Patient: Total time spent is greater than 50% in coordination of care (as documented) at patient's floor/unit and/or counseling patient: Coding Level of Care Code 39447 INT INP/OBS CARE MIN Diagnoses Diabetic ulcer of toe of left foot associated with diabetes mellitus due to underlying condition, with bone involvement without evidence of necrosis E08.621; L97.526 Other acute osteomyelitis of left foot M86.172 Osteomyelitis type: other acute Osteomyelitis location: foot Laterality: left History of amputation of foot through metatarsal bone Z89.439 Peripheral vascular disease in diabetes mellitus E11.51
[2025-01-25] MEDS: PRAMIPEXOLE DIHYDROCHLO 0.25 MG TAB PO SCH (22:52)
[2025-01-26] MEDS: CEFEPIME 2000MG 2,000 MG/20 ML SYR IV SCH (00:31)
[2025-01-26 06:40] LABS: Hematocrit (blood only) 32.2 % (37.0-47.0); Hemoglobin 10.7 g/dl (12.0-16.0); Immature Granulocytes # (auto) 0.02 K/uL (0.01-0.20); Immature Granulocytes % (auto) 0.3 %; Mean Corpuscular Hemoglobin 28.5 pg (25.0-34.0); Mean Corpuscular Volume 85.6 fL (80.0-100.0); Platelet Count 269 K/uL (130-400); RDW Standard Deviation 49.0 fL (36.4-46.3); Red Blood Count 3.76 M/uL (4.20-5.40); White Blood Count 5.72 K/ul (4.8-10.8)
[2025-01-26 07:25] LABS: Anion Gap 8.0 (3-11); Blood Urea Nitrogen 16.0 mg/dl (6-23); Calcium 9.4 mg/dl (8.6-10.3); Carbon Dioxide 31.0 mmol/L (21-32); Chloride 103.0 mmol/L (98-107); Creatinine Clr Calc Pharmacy 77.4 ml/min; Glucose 103.0 mg/dl (70-99(Fasting)); Potassium 3.4 mmol/L (3.5-5.1); Sodium 142.0 mmol/L (136-145)
[2025-01-26] MEDS ORDERED: VANCOMYCIN HCL 1,500 MG in SODIUM CHLORIDE 0.9% 500 ML IV SCH (08:00)
[2025-01-26] MEDS ORDERED: VANCOMYCIN HCL 1,250 MG in SODIUM CHLORIDE 0.9% 250 ML IV SCH (08:00)
[2025-01-26] MEDS: glipiZIDE ER 2.5 MG TABCR PO SCH (08:27)
[2025-01-26] MEDS: LANTUS PER UNIT CHARGE SQ SCH (09:01)
[2025-01-26] MEDS: CELECOXIB 100 MG CAP PO SCH (09:06)
[2025-01-26] MEDS: MULTIVITAMIN TAB PO SCH (09:06)
[2025-01-26] MEDS: POTASSIUM CHLORIDE CRTAB 20 MEQ TABCR PO STA (09:06)
[2025-01-26] MEDS: LOSARTAN POTASSIUM 50 MG TAB PO SCH (09:06)
[2025-01-26] MEDS: CLOPIDOGREL BISULFATE 75 MG TAB PO SCH (09:06)
[2025-01-26] MEDS: VANCOMYCIN HCL 1,500 MG in SODIUM CHLORIDE 0.9% 500 ML IV SCH (09:13)
--- NOTE | 2025-01-26 10:57 | Magnetic Resonance Report ---
MRI OF THE LEFT FOOT WITHOUT CONTRAST CLINICAL HISTORY: Concern for osteomyelitis. COMPARISON STUDY: Left foot MRI December 05, 2024. Left foot radiographs December 02, 2024 and left first, sec ond and third digit radiographs January 25, 2025. TECHNIQUE: Utilizing a 3 [place] magnet and dedicated coil, multiplanar, multiecho imaging of the left forefoot was performed without intravenous contrast. FINDINGS: There are expected postoperative findings following left first digit amputation. Moderate m id foot and forefoot soft tissue edema is present. No well-defined fluid collection is identified to suggest abscess on unenhanced exam. Tarsometatarsal joints are intact. Note is made of subchondral T1 and T2 hypointense linear signal within the second, third and fourth metatarsal heads which correspo nds to the findings on radiographs of January 25, 2025. These are suggestive of fractures. The second and third metatarsal head fractures are slightly displaced. Avascular necrosis could appear similar b ut is considered less likely. There is associated marrow edema within the second, third and fourth me tatarsals, likely on a traumatic basis. There is also marrow edema within the left third proximal pha lanx. On sagittal STIR sequence image 17 of 30, there is a probable fracture within the volar base of the middle phalanx. Therefore, this is likely traumatic as well. Of note, there is mildly diminished T1 signal and mildly increased T2 signal within the head of the left second proximal phalanx which i s new since previous MRI. There is a probable overlying wound. A small left first PIP joint effusion is present. This is suspicious for osteomyelitis. IMPRESSION: 1. Findings suspicious for acute osteomyelitis within the head of the left second proximal phalanx. S mall left first PIP joint effusion. Overlying wound. 2. Linear T1 and T2 hypointense signal within the left second, third and fourth metatarsal heads sugg estive of fractures. Avascular necrosis is within the differential but considered less likely. Associ ated marrow edema is likely on a traumatic basis. An infectious process at these levels would be diff icult to completely exclude but is considered less likely. Similarly, marrow signal abnormality withi n the left third proximal phalanx is likely traumatic with probable underlying fracture. An infectiou s process at this level is considered less likely. 3. Expected findings following left first digit amputation. ACT 112: Negative or not required by law. Electronically signed by: Nir Jerome M.D. 01/26/2025 10:56 AM
--- NOTE | 2025-01-26 13:52 | Pharmacy Report ---
Pharmacy PK ABX Note - Date of Service January 26, 2025 - Assessment and Plan Assessment 74 year old F receiving vancomycin and cefepime for treatment of likely osteomyelitis of the left second toe. * Patient is a type 2 diabetic c/b peripheral neuropathy. She is s/p amputation of the left first toe (11/2024). Approximately 1 week ago, she started to develop a wound on the dorsal aspect of second left toe. Ulcerated area now with exposed bone to the wound bed. Osteomyelitis is expected and podiatry plans for possible amputation of the 2nd left toe on 01/27. * Patient is afebrile and without leukocytosis. Renal function is stable an at baseline. (Scr is 0.65mg/dL today) * Left 2nd toe and blood cultures x 2 from 01/25 are pending Day # 2 of antimicrobial therapy. Plan Vancomycin * Loading dose: 1750 mg IV x 1 * Maintenance dose: 1500 mg IV every 24 hours * Regimen is predicted to achieve target AUC/FRED of 400-600 mg/L.hr * Random level ordered for: 01/28/25 Cefepime: 2gm iv q 12 hours. Pharmacy will continue to follow and will adjust dose/frequency as necessary. Thank you. Pharmacy has transitioned to AUC monitoring for vancomycin. AUC/FRED is the preferred PK/PD target and is associated with decreased risk of nephrotoxicity compared to traditional trough targets.
--- NOTE | 2025-01-26 16:27 | Hospitalist Progress Note ---
"Date of Service January 26, 2025 Assessment & Plan (1) Osteomyelitis: (2) Diabetes mellitus, type 2: (3) Implantable intrathecal infusion pump present: (4) Carotid stenosis: (5) Hypertension: Plan Patient is a 74yo F with PMHx of T2DM c/b peripheral neuropathy, CVA, GERD, HLD, HERIBERTO, and radiculopathies on morphine pump, who presents with foot wound. Xray with Cortical irregularity with mild flattening of the second, third and fourth metatarsal heads with mild periostitis of the second and third digits. Findings may be secondary to subtle acute nondisplaced fractures versus multifocal osteomyelitis. Patient without recent fall, injury or trauma to the area. Admitted for podiatry consultation and IV antibotics. #Left toe osteomyelitis - no traumatic injury, recent amputation of first digit 12/[address] Plunkett. No leukocytosis on admission but elevated ESR and CRP. Continue Cefepime and Vancomycin IV Consult podiatry - Dr. Plunkett, MRI ordered plan for OR 01/27. Patient is NPO at midnight Wound culture: pin point growth reincubating Blood culture: no growth at 24 hours Will Keep NPO at midnight pain control: tylenol, no pain reported on admission CRP downtrending. AM CBC and BMP T2DM w/ neuropathy A1c on 11/09/24 was 7.3%. Home meds - glipizide, metformin Continue gabapentin for neuropathic pain BSG ACHS + SSI. Lantus 10 units daily - BSG acceptable #Radiculopathies | Pain pump Intrathecal morphine pump palpable in right-middle abdomen - Patient's intra- thecal pump interrogated - motor stall occurred at 0921 and motor stall recovery occurred at 0949. Continue home pain meds - celebrex, gabapentin #Carotid artery stenosis - continue plavix #HTN - hold HCTZ with possible surgery, continue losartan #GERD - continue pepcid, protonix #STEPHEN/depression - continue duloxetine dispo: continued inpatient stay, OR tomorrow DVT proh: SCDs, avoid chemical with possible OR Admission and Anticipated Discharge Date Admission Date: January 25, 2025 Supervising Physician Co-Signing Physician Notes Attending Attestation: Chart reviewed, care plan d/w EJ Riddle. I agree with the sims components of her documentation. Gavino Echevarria MD Subjective patient seen lying in bed. Feeling well. Had her MRI has not seen Dr. Plunkett, but plan for OR tomorrow good appetitie Review of Systems Review of Systems: All systems reviewed & are unremarkable except as noted in Subjective Physical Exam Physical Exam: General: NAD, vitals as above, sitting on the side of bed Pulm: breathing unlabored CV: well perfused extremities: moves all extremities Results & Data Results & Data Vital Signs (Past 12 Hours) Vital Signs Temp Pulse Resp BP Pulse Ox O2 Del Method 01/26/25 16:06 97.7 F 68 18 110/68 95 Room Air 01/26/25 08:27 97.7 F 71 18 117/75 99 Room Air PG Care Time/CCT Total # of Minutes Spent Total Time Spent with Patient: Total time spent is greater than 50% in coordination of care (as documented) at patient's floor/unit and/or counseling patient: Coding Level of Care Code 58148 SUB INP/OBS CARE 2/35MIN Diagnoses Other acute osteomyelitis of left foot M86.172 Laterality: left Osteomyelitis location: foot Osteomyelitis type: other acute Diabetes mellitus, type 2 E11.9 Implantable intrathecal infusion pump present Z96.89 Carotid stenosis I65.29 Hypertension I10 (1) Osteomyelitis Laterality: left Osteomyelitis location: foot Osteomyelitis type: other acute Qualified Code(s): M86.172 - Other acute osteomyelitis, left ankle and foot"
--- NOTE | 2025-01-26 22:58 | Podiatry Progress Note ---
Date of Service January 26, 2025 Assessment & Plan (1) Diabetic ulcer of toe of left foot associated with diabetes mellitus due to underlying condition, with bone involvement without evidence of necrosis: (2) Osteomyelitis: (3) History of amputation of foot through metatarsal bone: (4) Peripheral vascular disease in diabetes mellitus: (5) Charcot joint of left foot: Plan Diabetic ulceration left second toe with underlying osteomyelitis: Patient's left foot is evaluated with ulceration to the dorsal aspect of the left second toe and exposed bone to the wound bed. - MRI results reviewed with patient with findings consistent with osteomyelitis of the distal aspect of the second proximal phalanx. Will plan to move forward with left second digit amputation as scheduled 01/27/2025. N.p.o. at midnight. Reviewed risks, benefits and alternatives to recommended procedure. All questions answered. Regarding the fractures of the left foot: Will have patient heel touch weightbearing in her cam walker postoperatively until follow-up. Will consider total contact casting as an outpatient once surgical incision has fully healed. Admission and Anticipated Discharge Date Admission Date: January 25, 2025 Subjective Patient seen resting comfortably in hospital bed. Denies nausea vomiting fever chills. Denies pain in the left foot. She is in much better spirits today and after discussing with family would like to move forward with recommended left second digit amputation scheduled for tomorrow morning around 9 AM. All questions answered. Review of Systems Review of Systems: Denies nausea, vomiting, fever, chills. Denies pain to the left foot. Physical Exam Physical Exam: Const: Appears well developed and well nourished. No signs of acute distress present. CV: Extremities: No cyanosis or edema. Capillary refill time is less than 2 seconds all digits of the bilateral foot. Posterior tibial and dorsalis pedis pulses are non-palpable bilateral. Neuro: Loss of protective sensation bilateral foot Psych: Mood/Affect: Mood is normal. Affect is normal. Cognition: Orientation is intact to person, place and time. Focused lower extremity musculoskeletal exam: Leg: No pain with compression of the calf muscle. Ankles: Normal to inspection and palpation. No swelling bilaterally. No tenderness bilaterally. Motor strength is intact. Range of motion pain-free and unlimited. Feet: Left: Ulceration to the dorsal aspect of the proximal interphalangeal joint of the left second toe extending to bone of the proximal phalanx. E rythema and edema extending to the base of the left second toe. No lymphangitis or streaking. No active drainage from the wound bed. Plantar ulceration subfirst metatarsal head left foot is epithelialized. Status post partial first ray amputation left foot 12/09/2024: Incision is now well-healed with no signs of local soft tissue infection along its length. Plantar lateral left foot in location of previous deep soft tissue injury: Epithelialized with no signs of local soft tissue infection Results & Data Results & Data Vital Signs (Past 12 Hours) Vital Signs Temp Pulse Resp BP BP Pulse Ox O2 Del Method 01/26/25 19:51 36.4 C L 68 16 132/82 96 Room Air 01/26/25 16:06 36.5 C 68 18 110/68 95 Room Air Diagnostic Findings MRI left foot 01/26/2025: IMPRESSION: 1. Findings suspicious for acute osteomyelitis within the head of the left second proximal phalanx. Small left first PIP joint effusion. Overlying wound. 2. Linear T1 and T2 hypointense signal within the left second, third and fourth metatarsal heads suggestive of fractures. Avascular necrosis is within the differential but considered less likely. Associated marrow edema is likely on a traumatic basis. An infectious process at these levels would be difficult to completely exclude but is considered less likely. Similarly, marrow signal abnormality within the left third proximal phalanx is likely traumatic with probable underlying fracture. An infectious process at this level is considered less likely. Coding Level of Care Code 38972 SUB INP/OBS CARE 2/35MIN Diagnoses Diabetic ulcer of toe of left foot associated with diabetes mellitus due to underlying condition, with bone involvement without evidence of necrosis E08.621; L97.526 Other acute osteomyelitis of left foot M86.172 Laterality: left Osteomyelitis location: foot Osteomyelitis type: other acute History of amputation of foot through metatarsal bone Z89.439 Peripheral vascular disease in diabetes mellitus E11.51 Charcot joint of left foot M14.672 (2) Osteomyelitis Laterality: left Osteomyelitis location: foot Osteomyelitis type: other ac [place] Qualified Code(s): M86.172 - Other acute osteomyelitis, left ankle and foot
[2025-01-27 07:07] LABS: Hematocrit (blood only) 36.4 % (37.0-47.0); Hemoglobin 11.9 g/dl (12.0-16.0); Mean Corpuscular Hemoglobin 28.0 pg (25.0-34.0); Mean Corpuscular Volume 85.6 fL (80.0-100.0); Platelet Count 310 K/uL (130-400); RDW Standard Deviation 49.4 fL (36.4-46.3); Red Blood Count 4.25 M/uL (4.20-5.40); White Blood Count 6.49 K/ul (4.8-10.8)
[2025-01-27 07:26] LABS: Anion Gap 7.0 (3-11); Blood Urea Nitrogen 15.0 mg/dl (6-23); Calcium 9.9 mg/dl (8.6-10.3); Carbon Dioxide 32.0 mmol/L (21-32); Chloride 102.0 mmol/L (98-107); Creatinine Clr Calc Pharmacy 66.2 ml/min; Glucose 116.0 mg/dl (70-99(Fasting)); Potassium 3.9 mmol/L (3.5-5.1); Sodium 141.0 mmol/L (136-145)
[2025-01-27] MEDS: LACTATED RINGER'S 1,000 ML IV SCH (08:33)
--- NOTE | 2025-01-27 08:49 | History & Physical Bridge Note ---
Date of Service January 27, 2025 History & Physical Bridge Note I have examined the patient, reviewed the History & Physical and in the interval since the performance of the History & Physical I have noted the following changes of clinical significance: no changes noted
--- NOTE | 2025-01-27 09:08 | Operative Report ---
PG Post Operative Report Pre & Post Diagnosis Operation Date: 01/27/25 09:05 Osteomyelitis left second toe I identified the patient and participated in the time-out.: Yes Procedure Operation Date: 01/27/25 09:05 Amputation left second toe Surgeon Gerardo Plunkett DPM Parakeet Raiser none Estimated Blood Loss 5 Findings Consistent with Post-Op Diagnosis Specimens Pathology: 1. Bone - proximal margin proximal phalanx left second toe. 2. Left second toe for gross pathology. Culture: 3. Head of the proximal phalanx left second toe Complications None Indications Patient presented emergency department on 01/25/2025 with concern for increased redness swelling and drainage to the left second toe with an ulceration overlying the dorsal aspect of the proximal interphalangeal joint. On evaluation there is exposed bone of the distal aspect of the proximal phalanx. Plain film radiographs with concern for multiple fractures and possible multifocal osteomyelitis of the left foot. Subsequent MRI confirms osteomyelitis of the proximal phalanx of left second toe. Description of Procedure Patient is brought in the operating room placed on the operating table in supine position. Timeout is held confirming correct patient, side, site, procedure with all necessary parties confirming. Following IV sedation local anesthesia is obtained about patient's left second ray in a modified Renee block fashion utilizing a total of 10 cc of 0.5% Marcaine plain in a modified Renee block fashion. The lower extremity was scrubbed prepped and draped to the level of the ankle. Attention was directed to the left second digit which is noted to be erythematous with ulceration to the distal aspect of the toe. Tourniquet is inflated to 250 mmHg without exsanguination. A fishmouth shaped incision is planned with a Skin Skribe at the base of the toe attempting to maintain adequat e soft tissue for primary closure. 15 blade is utilized to create an incision which is carried deep to the level of bone of the proximal phalanx. Soft tissues are freed surrounding the proximal one third of the proximal phalanx with a sims elevator. Sagittal saw was utilized to resect the toe at the distal aspect of the proximal phalanx at the surgical neck proximally. On the back table a proximal margin for bone pathology is collected placed in blue top vessel. Distal aspect of the proximal phalanx is sent for culture. Surgical wound is flushed with copious amounts of normal sterile saline. Tendinous structures within the surgical wound are pulled distally cut and allowed to retract into proximal soft tissues. Surgical wound is evaluated and noted to be free of any necrotic tissue. Wound is again flushed copious amounts of normal sterile saline. Deep soft tissue structures were reapproximated with a 3-0 Vicryl in simple interrupted fashion. Wound edges were reapproximated and closed with a 3-0 nylon in simple interrupted fashion. Foot is cleansed with normal sterile saline dried and dressed with Adaptic nonadherent gauze 4 x 4 fluff gauze ABD pad to the dorsum of the foot to protect soft tissue structures clean and lightly applied Coban to hold dressings in place. Patient tolerated procedure and anesthesia well. He was transferred to recovery room with vital signs stable and vascular status intact to the remaining digits of the operative foot. Following a brief period about postoperative monitoring recovery room patient will be transferred back to his bed on the medical floor for continued IV antibiotics and medical management. Plan: Weight bearing status: Heel touch weightbearing to left foot in cam boot with walker to assist. Wound care: Will change surgical dressing postop day 1. VTE Prophylaxis: okay from podiatry standpoint Antibiotics: broad-spectrum per medicine Pain Control: Multimodal Discharge Plan: Bone at the proximal margin is healthy white and firm with no signs of necrosis. Would consider today's procedure a surgical cure for osteomyelitis of the distal aspect of the proximal phalanx of the left second toe. Patient okay for discharge from podiatry standpoint on p.o. antibiotics following postop day 1 dressing change. I will continue to monitor intraoperative cultures and adjust antibiotics as needed. Patient to continue heel touch weightbearing in cam boot to the left foot with walker to assist. She is encouraged to use her electric wheelchair whenever possible to minimize weightbearing to the left foot. Continue to elevate left foot while at rest. Dressing okay to remain clean dry and intact until follow-up. Follow-up: Patient will follow-up with myself in diabetic foot clinic in 2 weeks for suture removal and continued management of Charcot process of the left foot. I attest to the content of the Intraoperative Record and any orders documented therein. Any exceptions are noted below. I attest to the content of the Intraoperative Record and any orders documented therein. Any exceptions are noted below.
[2025-01-27] MEDS ORDERED: ATROPINE SULFATE 0.1 MG/ML 10ML SYR IV PRN (09:09)
[2025-01-27] MEDS ORDERED: ONDANSETRON INJ 2 MG/ML 2 ML VIAL IV PRN (09:09)
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
[2025-01-27] MEDS ORDERED: ONDANSETRON INJ 2 MG/ML 2 ML VIAL ONE (09:31)
[2025-01-27] MEDS ORDERED: PROPOFOL IV EMULSION 10 MG/ML 20 ML VIAL IV ONE ×2 (09:31→10:02)
[2025-01-27] MEDS ORDERED: MIDAZOLAM HCL 1 MG/ML 2ML VIAL ONE (09:32)
[2025-01-27] MEDS: BUPIVACAINE 0.5 % 5 MG/1 ML MPF 30ML VIAL ONE (09:51)
--- NOTE | 2025-01-27 11:16 | Anesthesiology Progress Note ---
Date of Service January 27, 2025 Anesthesia Post Procedure Vital Signs Vital Signs: Temp Pulse Pulse Resp BP BP Pulse Ox 01/27/25 11:00 36.6 C 71 19 142/76 H 96 01/27/25 10:50 76 17 140/73 98 01/27/25 10:40 77 17 145/77 H 100 01/27/25 10:31 36.7 C 86 16 151/78 H 99 01/27/25 08:26 36.8 C 76 18 142/85 H 98 01/27/25 07:30 36.4 C L 64 18 125/76 95 01/26/25 22:59 36.5 C 81 16 112/75 95 01/26/25 19:51 36.4 C L 68 16 132/82 96 01/26/25 16:06 36.5 C 68 18 110/68 95 O2 Del Method O2 Flow Rate 01/27/25 11:00 Room Air 01/27/25 10:50 Room Air 01/27/25 10:40 Oxymask 3 01/27/25 10:31 Oxymask 5 01/27/25 08:26 Room Air 01/27/25 07:30 Room Air 01/26/25 22:59 Room Air 01/26/25 19:51 Room Air 01/26/25 16:06 Room Air Pain Intensity Left Toe: Pain Intensity: 6 Transfer of Care Handoff Completed per policy Notes Mental Status: alert / awake / arousable Patient Amnestic to Procedure: Yes Nausea / Vomiting: adequately controlled Pain: adequately controlled Airway Patency, RR, SpO2: stable & adequate BP & HR: stable & adequate Hydration State: stable & adequate Anesthetic Complications: no major complications apparent and Pt Satisfied with anesthetic care
--- NOTE | 2025-01-27 14:53 | Hospitalist Progress Note ---
"Date of Service January 27, 2025 Assessment & Plan (1) Osteomyelitis: (2) Diabetes mellitus, type 2: (3) Implantable intrathecal infusion pump present: (4) Carotid stenosis: (5) Hypertension: Plan Patient is a 74yo F with PMHx of T2DM c/b peripheral neuropathy, CVA, GERD, HLD, HERIBERTO, and radiculopathies on morphine pump, who presents with foot wound. Xray with Cortical irregularity with mild flattening of the second, third and fourth metatarsal heads with mild periostitis of the second and third digits. Findings may be secondary to subtle acute nondisplaced fractures versus multifocal osteomyelitis. Patient without recent fall, injury or trauma to the area. Admitted for podiatry consultation and IV antibotics. #Left toe osteomyelitis - no traumatic injury, recent amputation of first digit 12/[address] Plunkett. No leukocytosis on admission but elevated ESR and CRP. Continue Cefepime and Vancomycin IV Consult podiatry - Dr. Plunkett, MRI ordered plan for OR 01/27. Patient is NPO at midnight Wound culture: staph aureus, sensitivities pending OR culture: Blood culture: no growth at 24 hours Will Keep NPO at midnight pain control: tylenol, no pain reported on admission CRP downtrending. AM CBC and BMP T2DM w/ neuropathy A1c on 11/09/24 was 7.3%. Home meds - glipizide, metformin Continue gabapentin for neuropathic pain personal service representative recommend discontinuing PM glipizide dosing BSG ACHS + SSI. Lantus 10 units daily - BSG acceptable #Radiculopathies | Pain pump Intrathecal morphine pump palpable in right-middle abdomen - Patient's intra- thecal pump interrogated - motor stall occurred at 0921 and motor stall recovery occurred at 0949. Continue home pain meds - celebrex, gabapentin #Carotid artery stenosis - continue plavix #HTN - hold HCTZ with possible surgery, continue losartan #GERD - continue pepcid, protonix #STEPHEN/depression - continue duloxetine dispo: continued inpatient stay, awaiting cultures DVT proh: SCDs Admission and Anticipated Discharge Date Admission Date: January 25, 2025 Supervising Physician Co-Signing Physician Notes Attending Attestation: Chart reviewed, care plan d/w EJ Riddle. I agree with the sims components of her documentation. Appreciate podiatry assistance by Dr Plunkett. Gavino Echevarria MD Subjective Patient seen lying in bed post op feeling well, hoping not for a short inpatient stay Review of Systems Review of Systems: All systems reviewed & are unremarkable except as noted in Subjective Physical Exam Physical Exam: General: NAD, vitals as above, lying in bed, feeling well Pulm: breathing unlabored CV: well perfused extremities: moves all extremities Results & Data Results & Data Vital Signs (Past 12 Hours) Vital Signs Temp Pulse Pulse Resp BP BP Pulse Ox 01/27/25 13:41 98.1 F 79 18 120/70 96 01/27/25 12:35 97.7 F 64 16 121/72 94 01/27/25 11:56 97.9 F 65 18 123/69 95 01/27/25 11:23 97.5 F L 75 18 131/70 98 01/27/25 11:00 97.9 F 71 19 142/76 H 96 01/27/25 10:50 76 17 140/73 98 01/27/25 10:40 77 17 145/77 H 100 01/27/25 10:31 98.1 F 86 16 151/78 H 99 01/27/25 08:26 98.2 F 76 18 142/85 H 98 01/27/25 07:30 97.5 F L 64 18 125/76 95 O2 Del Method O2 Flow Rate 01/27/25 13:41 Room Air 01/27/25 12:35 Room Air 01/27/25 11:56 Room Air 01/27/25 11:23 Room Air 01/27/25 11:00 Room Air 01/27/25 10:50 Room Air 01/27/25 10:40 Oxymask 3 01/27/25 10:31 Oxymask 5 01/27/25 08:26 Room Air 01/27/25 07:30 Room Air Laboratory Results cbc and chemistry reviewed PG Care Time/CCT Total # of Minutes Spent Total Time Spent with Patient: Total time spent is greater than 50% in coordination of care (as documented) at patient's floor/unit and/or counseling patient: Coding Level of Care Code 45628 SUB INP/OBS CARE 2/35MIN Diagnoses Other acute osteomyelitis of left foot M86.172 Laterality: left Osteomyelitis location: foot Osteomyelitis type: other acute Diabetes mellitus, type 2 E11.9 Implantable intrathecal infusion pump present Z96.89 Carotid stenosis I65.29 Hypertension I10 (1) Osteomyelitis Laterality: left Osteomyelitis location: foot Osteomyelitis type: other acute Qualified Code(s): M86.172 - Other acute osteomyelitis, left ankle and foot"
[2025-01-27] MEDS: CEFEPIME 2000MG 2,000 MG/20 ML SYR IV SCH (21:32)
[2025-01-28 05:58] LABS: Hematocrit (blood only) 32.2 % (37.0-47.0); Hemoglobin 10.5 g/dl (12.0-16.0); Mean Corpuscular Hemoglobin 28.0 pg (25.0-34.0); Mean Corpuscular Volume 85.9 fL (80.0-100.0); Platelet Count 272 K/uL (130-400); RDW Standard Deviation 49.5 fL (36.4-46.3); Red Blood Count 3.75 M/uL (4.20-5.40); White Blood Count 7.61 K/ul (4.8-10.8)
[2025-01-28] MEDS: ACETAMINOPHEN 325 MG TAB PO PRN (06:09)
[2025-01-28 06:16] LABS: Anion Gap 6.0 (3-11); Blood Urea Nitrogen 19.0 mg/dl (6-23); Calcium 9.3 mg/dl (8.6-10.3); Carbon Dioxide 29.0 mmol/L (21-32); Chloride 106.0 mmol/L (98-107); Creatinine Clr Calc Pharmacy 65.3 ml/min; Glucose 112.0 mg/dl (70-99(Fasting)); Potassium 3.8 mmol/L (3.5-5.1); Sodium 141.0 mmol/L (136-145)
[2025-01-28] MEDS: VANCOMYCIN HCL 1,250 MG in SODIUM CHLORIDE 0.9% 250 ML IV SCH (09:00)
--- NOTE | 2025-01-28 13:28 | Podiatry Progress Note ---
Date of Service January 28, 2025 Assessment & Plan (1) Diabetic ulcer of toe of left foot associated with diabetes mellitus due to underlying condition, with bone involvement without evidence of necrosis: (2) Osteomyelitis: (3) History of amputation of foot through metatarsal bone: (4) Peripheral vascular disease in diabetes mellitus: (5) Charcot joint of left foot: Plan Diabetic ulceration left second toe with underlying osteomyelitis: - Postop day 1 status post left second toe amputation. Wound edges are well- approximated with all sutures intact. No active drainage. - Appreciate orthotics assistance with cam boot fitting. Patient to remain heel touch weightbearing to the left foot with walker to assist. - Patient to minimize weightbearing whenever possible and use electric wheelchair for long distances. - Okay to leave left foot dressing clean dry and intact until follow-up in the diabetic foot clinic next Friday. Should dressing become loose, soiled, wet or painful okay to remove and redress with Aquacel Ag and a dry sterile dressing. - Amputation of the second toe considered surgical cure for osteomyelitis. Okay for discharge from podiatry standpoint on p.o. antibiotics. I can continue to follow intraoperative cultures and adjust antibiotics as needed. Preliminary culture results growing Staph aureus with sensitivities pending. Pansensitive Staph aureus from culture of the left second toe on 01/25/2025. Regarding the fractures of the left foot: Will have patient heel touch weightbearing in her cam walker postoperatively until follow-up. Will consider total contact casting as an outpatient once surgical incision has fully healed. Admission and Anticipated Discharge Date Admission Date: January 25, 2025 Subjective Patient resting comfortably in hospital bed postop day 1 status post left second toe amputation for treatment of osteomyelitis. Surgical dressing is clean dry and intact. Denies pain in the left foot. Denies nausea vomiting fever chills. Review of Systems Review of Systems: Denies nausea, vomiting, fever, chills. Denies pain to the left foot. Physical Exam Physical Exam: Const: Appears well developed and well nourished. No signs of acute distress present. CV: Extremities: No cyanosis or edema. Capillary refill time is less than 2 seconds all digits of the bilateral foot. Posterior tibial and dorsalis pedis pulses are non-palpable bilateral. Neuro: Loss of protective sensation bilateral foot Psych: Mood/Affect: Mood is normal. Affect is normal. Cognition: Orientation is intact to person, place and time. Focused lower extremity musculoskeletal exam: Leg: No pain with compression of the calf muscle. Ankles: Normal to inspection and palpation. No swelling bilaterally. No tenderness bilaterally. Motor strength is intact. Range of motion pain-free and unlimited. Feet: Left: Well-healed partial first ray amputation. Postop day 1 status post left second digit amputation. Wound edges well-approximated with all sutures intact. Moderate sanguinous drainage to the surgical dressing. No active drainage. Results & Data Results & Data Vital Signs (Past 12 Hours) Vital Signs Temp Pulse Resp BP Pulse Ox O2 Del Method 01/28/25 11:08 36.5 C 76 18 150/84 H 97 Room Air 01/28/25 07:55 36.6 C 67 18 151/80 H 97 Room Air Coding Level of Care Code 26698 SUB INP/OBS CARE 2/35MIN Diagnoses Diabetic ulcer of toe of left foot associated with diabetes mellitus due to underlying condition, with bone involvement without evidence of necrosis E08 .621; L97.526 Other acute osteomyelitis of left foot M86.172 Laterality: left Osteomyelitis location: foot Osteomyelitis type: other acute History of amputation of foot through metatarsal bone Z89.439 Peripheral vascular disease in diabetes mellitus E11.51 Charcot joint of left foot M14.672 (2) Osteomyelitis Laterality: left Osteomyelitis location: foot Osteomyelitis type: other acute Qualified Code(s): M86.172 - Other acute osteomyelitis, left ankle and foot
--- NOTE | 2025-01-28 15:13 | Hospitalist Progress Note ---
"Date of Service January 28, 2025 Assessment & Plan (1) Osteomyelitis: (2) Diabetes mellitus, type 2: (3) Implantable intrathecal infusion pump present: (4) Carotid stenosis: (5) Hypertension: Plan 74yo female with T2DM, diabetic peripheral neuropathy, prior CVA, GERD, hyperlipidemia, HERIBERTO, and radiculopathies on intra-thecal morphine pump. Presented with left foot wound. #Left 2nd toe osteomyelitis - -patient recently underwent amputation of left first toe on 12/[address] Plunkett -MRI here ultimately confirmed OM of head of left 2nd toe proximal phalanx -left 2nd toe cx earlier this admission grew MSSA; no other pathogens -remains on Cefepime and Vancomycin IV -Consulted podiatry - Dr. Plunkett -patient is now POD #1 s/p left 2nd toe amputation -intra-op wound cx from this digit pending but early results show staph aureus -patient can use CAM walker boot to ambulate but HEEL TOUCH only at this time -patient's boot needed adjustments to the straps - consulted Galindo Brewer from orthotics for such -d/c cefepime/vanco; change to IV ancef -if nothing else grows other than MSSA can d/c home on keflex -PT eval needed to ensure she can negotiate stairs, etc. #left 2nd, 3rd, 4th metatarsal head fractures vs Charcot foot findings vs other - -acute OM of these metatarsals NOT suspected -will be in CAM walking boot moving forward -these can be followed by Dr Plunkett -check 25-OH vit D level am #T2DM w/ neuropathy - -HbA1c on 11/09/24 was 7.3%. Home meds - glipizide, metformin -Continue gabapentin for neuropathic pain -childbirth educator recommend discontinuing PM glipizide dosing -while here - novolog SSI and Lantus 10 units daily -glycemic control excellent while hospitalized #Radiculopathies | Pain pump - -Intrathecal morphine pump palpable in right-middle abdomen -Continue home pain meds - celebrex, gabapentin -due for pump refill on 02/07/25 in pain clinic #Carotid artery stenosis - -continue plavix #HTN - -hold HCTZ; BPs controlled w/o such -cont losartan #GERD - -continue pepcid, protonix #STEPHEN/depression - -continue duloxetine DVT proph - with weight-bearing being restricted consider aspirin 81mg BID hopefully home tomorrow left message for pt's this evening, 01/28 PT irais requested Admission and Anticipated Discharge Date Admission Date: January 25, 2025 Subjective tele overnight wnl patient with minimal pain in left foot she confirms she has her CAM walking boot with her here at hospital has been wearing this boot for months at home she has done very little walking here during the hospital stay she reports she has multiple steps in her house and also to get into her house having constipation troubles, but this is chronic problem for her Review of Systems Review of Systems: gen - eating well , no fevers cv - no chest pain pulm - no dyspnea GI - no diarrhea Physical Exam Physical Exam: gen - NAD, pleasant neck - no JVD mouth - MMM heart - RRR, s1 s2 lungs - CTA b/l abd - soft, mildly distended, BS+, NT ext - left foot in large dressing; cap refill of toes < 2 sec; right foot w/o edema, pulses right foot 2+ psych - a/o x 3 Results & Data Results & Data Vital Signs (Past 12 Hours) Vital Signs Temp Pulse Resp BP Pulse Ox O2 Del Method 01/28/25 11:08 36.5 C 76 18 150/84 H 97 Room Air 01/28/25 07:55 36.6 C 67 18 151/80 H 97 Room Air Laboratory Results Laboratory Results - last 24 hr 01/28/25 01/28/25 01/28/25 05:32 08:34 11:44 WBC 7.61 RBC 3.75 L Hgb 10.5 L Hct 32.2 L MCV 85.9 MCH 28.0 MCHC 32.6 RDW Std Deviation 49.5 H RDW Coeff of Manas 15.9 H Plt Count 272 MPV 9.7 Sodium 141 Potassium 3.8 Chloride 106 Carbon Dioxide 29 Anion Gap 6 BUN 19 Creatinine 0.77 Est Cr Clr Drug Dosing 65.3 eGFR 81.91 BUN/Creatinine Ratio 24.7 H Glucose 112 H POC Glucose 106 H 113 H Calcium 9.3 Random Vancomycin 10.8 Diagnostic Findings Microbiology 01/25/25 14:30 Toe,Left Second Gram Stain - Final 01/25/25 14:30 Toe,Left Second Aerobic and Anaerobic Culture - Preliminary Staphylococcus aureus 01/27/25 10:20 Toe,Left Second Gram Stain - Final 01/27/25 10:20 Toe,Left Second Aerobic and Anaerobic Culture - Preliminary Staphylococcus aureus 01/25/25 15:28 Blood Aerobic Blood Culture - Preliminary No growth in Aerobic bottle after 48 hours. 01/25/25 15:28 Blood Anaerobic Blood Culture - Preliminary No growth in Anaerobic bottle after 48 hours. 01/25/25 14:46 Blood Aerobic Blood Culture - Preliminary No growth in Aerobic bottle after 48 hours. 01/25/25 14:46 Blood Anaerobic Blood Culture - Preliminary No growth in Anaerobic bottle after 48 hours. PG Care Time/CCT Total # of Minutes Spent Total Time Spent with Patient: Total time spent is greater than 50% in coordination of care (as documented) at patient's floor/unit and/or counseling patient: Coding Level of Care Code 37107 SUB INP/OBS CARE 3/50MIN Diagnoses Other acute osteomyelitis of left foot M86.172 Laterality: left Osteomyelitis location: foot Osteomyelitis type: other acute Diabetes mellitus, type 2 E11.9 Implantable intrathecal infusion pump present Z96.89 Carotid stenosis I65.29 Hypertension I10 (1) Osteomyelitis Laterality: left Osteomyelitis location: foot Osteomyelitis type: other acute Qualified Code(s): M86.172 - Other acute osteomyelitis, left ankle and foot"
[2025-01-29 07:06] LABS: Creatinine Clr Calc Pharmacy 76.2 ml/min
[2025-01-29 07:07] LABS: Anion Gap 8.0 (3-11); Blood Urea Nitrogen 19.0 mg/dl (6-23); Calcium 9.8 mg/dl (8.6-10.3); Carbon Dioxide 28.0 mmol/L (21-32); Chloride 105.0 mmol/L (98-107); Creatinine Clr Calc Pharmacy 76.2 ml/min; Glucose 118.0 mg/dl (70-99(Fasting)); Magnesium 1.7 mg/dl (1.7-2.4); Potassium 3.8 mmol/L (3.5-5.1); Sodium 141.0 mmol/L (136-145)
[2025-01-29 08:24] VITALS: PULSE 61; RESP 17; TEMP 97.9; O2SAT 98
--- NOTE | 2025-01-29 11:11 | Discharge Summary ---
"Discharge Summary Date of Service January 29, 2025 Principal Dx & Hospital Course #1 = Principal Diagnosis (1) Osteomyelitis: (2) Diabetes mellitus, type 2: (3) Implantable intrathecal infusion pump present: (4) Carotid stenosis: (5) Hypertension: Plan 74yo female with T2DM, diabetic peripheral neuropathy, prior CVA, GERD, hyperlipidemia, HERIBERTO, and radiculopathies on intra-thecal morphine pump. Presented with left foot wound. #Left 2nd toe osteomyelitis - -patient recently underwent amputation of left first toe on 12/[address] Plunkett -MRI here ultimately confirmed OM of head of left 2nd toe proximal phalanx -left 2nd toe cx earlier this admission grew MSSA; no other pathogens -remains on Cefepime and Vancomycin IV -Consulted podiatry - Dr. Plunkett -patient is now POD #1 s/p left 2nd toe amputation -intra-op wound cx from this digit pending but early results show staph aureus -patient can use CAM walker boot to ambulate but HEEL TOUCH only at this time -patient's boot needed adjustments to the straps - consulted Galindo Brewer from orthotics for such -d/c cefepime/vanco; change to IV ancef -if nothing else grows other than MSSA can d/c home on keflex -PT eval needed to ensure she can negotiate stairs, etc. #left 2nd, 3rd, 4th metatarsal head fractures vs Charcot foot findings vs other - -acute OM of these metatarsals NOT suspected -will be in CAM walking boot moving forward -these can be followed by Dr Plunkett -check 25-OH vit D level am #T2DM w/ neuropathy - -HbA1c on 11/09/24 was 7.3%. Home meds - glipizide, metformin -Continue gabapentin for neuropathic pain -perinatal educator recommend discontinuing PM glipizide dosing -while here - novolog SSI and Lantus 10 units daily -glycemic control excellent while hospitalized #Radiculopathies | Pain pump - -Intrathecal morphine pump palpable in right-middle abdomen -Continue home pain meds - celebrex, gabapentin -due for pump refill on 02/07/25 in pain clinic #Carotid artery stenosis - -continue plavix #HTN - -hold HCTZ; BPs controlled w/o such -cont losartan #GERD - -continue pepcid, protonix #STEPHEN/depression - -continue duloxetine DVT proph - with weight-bearing being restricted consider aspirin 81mg BID hopefully home tomorrow left message for pt's this evening, 01/28 PT irais requested Admission HPI Per Admitting Provider Rosa Mccarty is a 74F with a PMH of T2DM c/b peripheral neuropathy, CVA, GERD, HLD, HERIBERTO, and radiculopathies on morphine pump, who presents with foot wound. She noticed scratch about a week ago, that has progressed over the last week. Tried to get in with the wound clinic but they told her to report to the ER. Denies pain. States this is similar to when she had to get her 1st toe a mputated. Does report fatigue. Thought it was just from doing too much when he knew he wasnt supposed to. Not moving her bowels, but that is her normal. No fevers or chills at home. Took her medications this morning. Discharge Exam gen - NAD, pleasant neck - no JVD mouth - MMM heart - RRR, s1 s2 lungs - CTA b/l abd - soft, mildly distended, BS+, NT ext - left foot in large dressing; cap refill of toes < 2 sec; right foot w/o edema, pulses right foot 2+ psych - a/o x 3 Discharge Plan Discharge Items Reason For Visit: OSTEOMYELITIS Condition on Discharge: Good Follow-up/Referrals: Tsering Casper MD [Primary Care Provider] - Medications and DC Order Prescriptions: No Action famotidine 40 mg tablet 40 mg PO QPM hydrochlorothiazide 25 mg tablet 25 mg PO QAM metformin 1,000 mg tablet 1,000 mg PO BID glipizide 2.5 mg tablet extended release 24hr 2.5 mg PO BID pantoprazole 40 mg tablet,delayed release (DR/EC) 40 mg PO QAM gabapentin 300 mg capsule 900 mg PO TID Patient Comments: TAKES 3 TAB TID acetaminophen 325 mg Tablet 650 mg PO Q4H PRN (Reason: pain) Qty: 30 0RF magnesium 250 mg tablet 250 mg PO HS Qty: 30 0RF multivitamin Tablet 1 tab PO QAM ipratropium-albuterol 0.5 mg-3 mg(2.5 mg base)/3 mL Solution For Nebulization 3 ml NEB Q4R PRN (Reason: shortness of breath) Qty: 90 0RF guaifenesin [Mucinex] 600 mg tablet extended release 12hr 1,200 mg PO Q12 PRN (Reason: Congestion) celecoxib [Celebrex] 100 mg capsule 100 mg PO QAM clopidogrel [Plavix] 75 mg Tablet 75 mg PO QAM pramipexole 0.25 mg Tablet 0.25 mg PO HS losartan 50 mg Tablet 50 mg PO QAM pramipexole 0.25 mg Tablet 0.5 mg PO QDD duloxetine 60 mg Capsule,Delayed Release(Dr/Ec) 60 mg PO QAM Admission Data Admit Date/Time: 01/25/25 16:27 Attending Provider: Gavino Echevarria Admit Provider: Michelet Macedo Primary Care Provider: Tsering Casper Other Providers: Michelet Macedo; Gerardo Plunkett Hospital Stay Data Consultations 01/25/25 15:30 ED Decision to Admit Stat 01/25/25 15:50 Consult Podiatry Routine Procedures Performed Operation Date: 01/27/25 09:05 Actual Procedures p Left 2nd Toe Amputation(Left) - Gerardo Plunkett DPM Diagnostic Imagining Performed 01/26/25 21:41 MR foot LT w/o con Routine Coding Diagnoses Other acute osteomyelitis of left foot M86.172 Laterality: left Osteomyelitis location: foot Osteomyelitis type: other acute Diabetes mellitus, type 2 E11.9 Implantable intrathecal infusion pump present Z96.89 Carotid stenosis I65.29 Hypertension I10"
[2025-01-29 11:57] VITALS: BP 124/77
== END 2025-01-29 14:07 | disposition home or self-care (01) | DRG 617 ==
LOC: ED 14:08 → EDINP 16:27 → SUATTDRO 16:27 → 2N 18:30